=== PATIENT | female | born 1955 | race Caucasian/White ===

== ENCOUNTER → 2024-12-01 | Outpatient (REF) | payer MEDICARE, BC, SELFPAY ==
--- OUTSIDE RECORDS SUMMARY | 2024-12-01 03:32 | XMS RPT_ITS | CCD ---
Author Organization [facility] Care Team Providers Care Electrical Checkout Mechanic Name Role Phone Magdy Wood MD Unavailable Magdy Wood MD Unavailable Marisabel Orellana MA Unavailable Unavailable Maryann GARY, Lesley Diaz Unavailable Unavailab le Unavailable Unavailable Sun Wall Unavailable Unavailable Holli Cline LPN Unavailable Unavailable IRON Attending Unavailable PHYSICIAN, NONE Primary Care Physician Unavailab MARCO Adame Attending Unavailable MARCO VARELA Primary Care Unavailable MARCO VARELA Admitting Unavailable MARCO VARELA Attending Unavailable MARCO VARELA Primary Care Unavailable MARCO VARELA Admitting Unavailable Unavailable Primary Care Provider Unavailabl e PROVIDER, UNKNOWN Admitting Unavailable PROVIDER, UNKNOWN Attending Unavailable PROVIDER, UNKNOWN Admitting Unavailable PROVIDER, UNKNOWN Attending Unavailable PHYSICIAN, NONE Primary Care Unavailable DELVIS GUNDERSON MD Consulting UnavailMEÑO Howard MD Admitting Unavailable MEÑO URBINA MD Attending Unavailable AMERICA SOSA MD Consulting Unavailable BENNY IVAN MD Consulting Unavailab OPAL Lim MD Consulting Unavailable SCANNING, GENERIC PROVIDER Referring Unava ilable ABILIO LEYVA Consulting Unavailable HERNAN AG Admitting Unavailable ZAHRA ELLIS Attending Unavailable UMU TRIVEDI Referring Unavailable TRINH BANEGAS MD Attending Unavailable MAKENZIE DUARTE, TRINH Attending Unavailable NORA HENDERSON MD Consulting Unavaila TRINH Prado MD Attending Unavailable MAKENZIE DUARTE, TRINH Admitting Unavailable PHYSICIAN, NONE Primary Care Unavailable Yamilet Jon Attending Unavailable Allergies Allergy Classification Reported Allergen(s) Allergy Type Date of Onset Reaction(s) Facility (1 source) heparin; Translations: [HEPARIN] Drug Allergy 09-29-2024 [facility] Medications Completed/Discontinued Medications Medication Drug Class(es) Dates Sig (Normalized) Sig (Original) amoxicillin 875 mg oral tablet (6 sources) Penicillin-class Antibacterial Start: 02-26-2022 End: 03-08-2022 take 1 tablet by mouth twice daily Amoxicillin 875 MG Oral Tablet ; 1 (one) Tablet bid for 10 days Quantity: 20 {Tablet} Refills: 0 Ordered: 26-Feb-2022 MD Magdy Wood Start: 26-Feb-2022 End: 08-Mar-2022 Status: Inactive betamethasone 1 mg/ml topical cream (6 sources) Corticosteroid Start: 08-29-2017 End: 02-26-2022 Betamethasone Valerate 0.1 % External Cream ; apply Cream Cream bid prn for 0 days Quantity: 80 {Gram} Refills: 5 Ordered: 26-Feb-2022 COOKIE Wolf Lesley Diaz Start: 29-Aug-2017 End: 26-Feb-2022 Status: Inactive Problems Active Problems Problem Classification Problem Date Documented Da te Episodic/Chronic Acute myocardial infarction (2 sources) ST elevation (STEMI) myocardial infarction involving other coronary artery of anterior wall; Translations: [ST elevation (STEMI) myocardial infarction involving other coronary artery of anterior wall] Onset: 09-10-2024 Chronic Allergic reactions (12 sources) Eczema; Translations: [Dermatitis, unspecified] 09-06-2015 Episodic Anxiety disorders (13 sources) Anxiety disorder; Translations: [Anxiety disorder, unspecified] 02-26-2022 Chronic Cardiac arrest and ventricular fibrillation (4 sources) Cardiac arrest, cause unspecified; Translations: [Cardiac arrest due to underlying cardiac condition] Onset: 09-10-2024 Chronic Chronic kidney disease (4 sources) End stage renal disease; Translations: [Dependence on renal dialysis] Onset: 09-11-2024 Chronic Chronic obstructive pulmonary disease and bronchiectasis (18 sources) Bronchitis; Translations: [Bronchitis, not specified as acute or chronic] 02-26-2022 Episodic Complications of surgical procedures or medical care (3 sources) Postprocedural cardiogenic shock, initial encounter; Translations: [Postoperative shock, cardiogenic] Onset: 09-11-2024 09-11-2024 Episodic Congestive heart failure; nonhypertensive (3 sources) Chronic systolic (congestive) heart failure; Translations: [Acute systolic (congestive) heart failure] Onset: 09-10-2024 Chronic Gastrointestinal hemorrhage (2 sources) Melena; Translations: [Melena] Onset: 09-11-2024 Episodic Hypertension with complications and secondary hypertension (1 source) Hypertensive heart disease with heart failure; Translations: [Hypertensive heart disease with heart failure] Onset: 09-10-2024 Chronic Other circulatory disease (15 sources) Elevated blood-pressure reading without diagnosis of hypertension; Translations: [Elevated blood-pressure reading, without diagnosis of hypertension] 02-26-2022 Episodic Other circulatory disease (1 source) Limb ischemia; Translations: [Other disorder of circulatory system] Onset: 09-10-2024 09-11-2024 Episodic Other circulatory disease (2 sources) Other disorder of circulatory system; Translations: [Other disorder of circulatory system] Onset: 09-11-2024 Episodic Other circulatory disease (2 sources) Other specified symptoms and signs involving the circulatory and respiratory systems; Translations: [Other specified symptoms and signs involving the circulatory and respiratory systems] Onset: 09-11-2024 Episodic Other connective tissue disease (2 sources) Other specified soft tissue disorders; Translations: [Other specified soft tissue disorders] Onset: 09-11-2024 Episodic Other diseases of kidney and ureters (2 sources) Other specified disorders of kidney and ureter; Translations: [Other specified disorders of kidney and ureter] Onset: 09-11-2024 Chronic Other female genital disorders (2 sources) Hypertrophy of uterus; Translations: [Hypertrophy of uterus] Onset: 09-11-2024 Episodic Other nutritional; endocrine; and metabolic disorders (12 sources) Body mass index 30+ - obesity; Translations: [Body mass index (BMI) 35.0-35.9, adult] 02-26-2022 Chronic Other nutritional; endocrine; and metabolic disorders (6 sources) Obesity caused by energy imbalance; Translations: [Morbid (severe) obesity due to excess calories] 04-23-2024 Chronic Other nutritional; endocrine; and metabolic disorders (1 source) Body mass index (BMI) 40.0-44.9, adult; Translations: [Body mass index [BMI] 40.0-44.9, adult] Onset: 09-10-2024 Chronic Other nutritional; endocrine; and metabolic disorders (1 source) Obesity, unspecified; Translations: [Obesity, unspecified] Onset: 09-10-2024 Chronic Other screening for suspected conditions (not mental disorders or infectious disease) (20 sources) Patient encounter status; Translations: [Encounter for screening for diabetes mellitus] Onset: 09-11-2024 02-17-2024 Episodic Other skin disorders (2 sources) Localized swelling, mass and lump, right lower limb; Translations: [Localized swelling, mass and lump, right lower limb] Onset: 09-11-2024 Episodic Pleurisy; pneumothorax; pulmonary collapse (3 sources) Pleural effusion, not elsewhere classified; Translations: [Pleural effusion, not elsewhere classified] Onset: 10-27-2024 Episodic Respiratory failure; insufficiency; arrest (adult) (1 source) Acute respiratory failure with hypoxia; Translations: [Acute respiratory failure with hypoxia] Onset: 09-10-2024 Episodic Shock (5 sources) Cardiogenic shock; Translations: [Cardiogenic shock] Onset: 09-10-2024 09-14-2024 Episodic Unclassified (2 sources) Autogenerated Problem Onset: 09-11-2024 09-11-2024 Past or Other Problems Problem Classification Problem Date Documented Da te Episodic/Chronic Unclassified (6 sources) Cold Symptoms - Symptoms include runny nose, productive cough, wheezing, fever (low grade), general malaise and headache, but do not include sneezing, nasal congestion, ear pain, ear fullness or sore throat. The onset was sudden 3 day(s) ago. The symptoms occur constantly. The patient describes this as moderate in severity and worsening. Current treatment includes non-prescription cold medication. Note for Upper respiratory infection: reviewed by [facility] 02-26-2022 Unclassified (6 sources) Cold Symptoms - Symptoms include sneezing, runny nose, ear fullness, sore throat, hoarseness, productive cough, fever (low grade), chills and headache, but do not include ear pain or general malaise. The onset was sudden 10 day(s) ago. The symptoms occur constantly. The patient describes this as moderate in severity and unchanged. Current treatment includes non-prescription cold medication. Note for Upper respiratory infection: reviewed by [facility] 03-05-2017 Unclassified (6 sources) Rash - The onset of the rash has been acute and has been occurring in a persistent pattern for months. The course has been increasing. The rash is characterized as red. The rash was first seen on the lower extremity (right leg). It spread to the face (right eye lid). There has been associated itching. Note for Rash: reviewed by [facility] 09-06-2015 Unclassified (1 source) [facility] 04-23-2024 Unclassified (3 sources) [facility] - In general the patient feels well with no complaints, has good energy level and is sleeping well (depends on the night). The patient has a balanced diet. The patient exercises none (walking at work) and sleeps 5 (6) hours per night. The patient denies having trouble with bathing, dressing/grooming, toileting, preparing meals and ambulating. The patient denies having trouble with grocery shopping, driving, use of telephone, housework, laundry, preparing/taking medications and finances. The patient performs monthly self breast exam. The patient does not have Healthcare Power of Journeyman Patternmaker or Living Will. Note for [facility]: reviewed by [facility] 04-23-2024 Results Test Name Value Interpretation Reference Range Facility Albumin, Serumon 11-26-2024 Albumin [Mass/Vol] 3.3 g/dL Low 3.4-4.8 [facility] Comment on above: Performed By: #### L 500.2500, L501.1800, L100.0500 #### [facility] [address] [facility] [address] Basic Metabolic Profile (BMP )on 11-26-2024 BUN/CRE 5.7 RATIO Low 10-20 [facility] Comment on above: Performed By: #### L 500.2500, L501.1800, L100.0500 #### [facility] [address] [facility] [address] Calcium [Mass/Vol] 9.5 mg/dL Normal 7.6-11.0 [facility] Comment on above: Performed By: #### L 500.2500, L501.1800, L100.0500 #### [facility] [address] [place], [address] Chloride [Moles/Vol] 97 mmol/L Low 98-108 [facility] Comment on above: Performed By: #### L 500.2500, L501.1800, L100.0500 #### [facility] [address] [place], [address] CO2 [Moles/Vol] 28.4 mmol/L Normal 21.0-32.0 [facility] Comment on above: Performed By: #### L 500.2500, L501.1800, [id number] #### [facility] [address] [place], [address] Creatinine [Mass/Vol] 2.33 mg/dL High 0.70-1.20 [facility] Comment on above: Performed By: #### L 500.2500, L501.1800, L100.0500 #### [facility] [address] [place], [address] GAP 11 Normal 5-15 [facility] Comment on above: Performed By: #### L 500.2500, L501.1800, L100.0500 #### [facility] [address] [place], [address] GFR/1.73 sq M.predicted among non-blacks MDRD (S/P/Bld) [Vol rate/Area] 22 mL/min/{1.73_m2} Low >60 [facility] Comment on above: Result Comment: mL/m in/1.73m2 CKD-EPI Creatinine Equation (2020) Performed By: #### L 500.2500, L501.1800, L100.0500 #### [facility] [address] [place], [address] Glucose [Mass/Vol] 75 mg/dL Normal 70-99 [facility] Comment on above: Performed By: #### L 500.2500, L501.1800, L100.0500 #### [facility] [address] [place], [address] Potassium [Moles/Vol] 4.3 mmol/L Normal 3.3-5.1 [facility] Comment on above: Result Comment: Hemo lysis present, Results??could be affected. ?? Performed By: #### L 500.2500, L501.1800, L100.0500 #### [facility] [address] [place], [address] Sodium [Moles/Vol] 136 mmol/L Normal 133-145 [facility] Comment on above: Performed By: #### L 500.2500, L501.1800, L100.0500 #### [facility] [address] [place], [address] Urea nitrogen [Mass/Vol] 13 mg/dL Normal 4-19 [facility] Comment on above: Performed By: #### L 500.2500, L501.1800, L100.0500 #### [facility] [address] [place], [address] CBC-Complete Blood Cnt No Di ffon 11-26-2024 Erythrocyte distribution width (RBC) [Ratio] 15.0 % High 11.6-14.6 [facility] Comment on above: Performed By: #### L 500.2500, L501.1800, L100.0500 #### [facility] [address] [place], [address] Hematocrit (Bld) [Volume fraction] 41.3 % Normal 37-47 [facility] Comment on above: Performed By: #### L 500.2500, L501.1800, L100.0500 #### [facility] [address] [place], [address] Hemoglobin (Bld) [Mass/Vol] 12.5 g/dL Normal 12.0-15.0 [facility] Comment on above: Performed By: #### L 500.2500, L501.1800, L100.0500 #### [facility] [address] [place], [address] MCH (RBC) [Entitic mass] 28.3 pg Normal 27.0-32.0 [facility] Comment on above: Performed By: #### L 500.2500, L501.1800, L100.0500 #### [facility] [address] [place], [address] MCHC (RBC) [Mass/Vol] 30.3 g/dL Low 32-36 [facility] Comment on above: Performed By: #### L 500.2500, L501.1800, L100.0500 #### [facility] [address] [place], [address] MCV (RBC) [Entitic vol] 93.4 fL Normal 81-99 [facility] Comment on above: Performed By: #### L 500.2500, L501.1800, L100.0500 #### [facility] [address] [place], [address] Platelet mean volume (Bld) [Entitic vol] 10.7 fL Normal 6.2-12.0 [facility] Comment on above: Performed By: #### L 500.2500, L501.1800, L100.0500 #### [facility] [address] [place], [address] Platelets (Bld) [#/Vol] 229 10*3/uL Normal 150-450 [facility] Comment on above: Performed By: #### L 500.2500, L501.1800, L100.0500 #### [facility] [address] [place], [address] RBC (Bld) [#/Vol] 4.42 10*6/uL Normal 4.2-5.4 [facility] Comment on above: Performed By: #### L 500.2500, L501.1800, L100.0500 #### [facility] [address] [place], [address] RDW SD 51.2 fl High 35.1-43.9 [facility] Comment on above: Performed By: #### L 500.2500, L501.1800, L100.0500 #### [facility] [address] [place], [address] WBC (Bld) [#/Vol] 5.3 10*3/uL Normal 4.4-11.0 [facility] Comment on above: Performed By: #### L 500.2500, L501.1800, L100.0500 #### [facility] [address] [place], [address] .Auto Diffon 11-23-2024 Basophil, Absolute 0.1 10 3/mcL Normal 0.0-0.3 [facility] Comment on above: Performed By: #### B FPR, GLUBF, BFCT, PROBF #### [facility] [address] [place] [address] Basophils/100 WBC (Bld) 1.1 % Normal 0.0-2.5 [facility] Comment on above: Performed By: #### B FPR, GLUBF, BFCT, PROBF #### [facility] [address] [place] [address] Eosinophil, Absolute 0.0 10 3/mcL Normal 0.0-0.7 [facility] Comment on above: Performed By: #### B FPR, GLUBF, BFCT, PROBF #### [facility] [address] [place] [address] Eosinophils/100 WBC (Bld) 0.1 % Normal 0.0-6.0 [facility] Comment on above: Performed By: #### B FPR, GLUBF, BFCT, PROBF #### [address] [address] Lymphocyte, Absolute 1.8 10 3/mcL Normal 0.9-4.3 [facility] Comment on above: Performed By: #### B FPR, GLUBF, BFCT, PROBF #### [address] [address] Lymphocytes/100 WBC (Bld) 35.3 % Normal 20.0-40.0 [facility] Comment on above: Performed By: #### B FPR, GLUBF, BFCT, PROBF #### [address] [address] Monocyte, Absolute 0.5 10 3/mcL Normal 0.1-1.4 [facility] Comment on above: Performed By: #### B FPR, GLUBF, BFCT, PROBF #### [address] [address] Monocytes/100 WBC (Bld) 9.7 % Normal 2.0-13.0 [facility] Comment on above: Performed By: #### B FPR, GLUBF, BFCT, PROBF #### [address] [address] Neutrophils/100 WBC (Bld) 53.8 % Normal 50.0-75.0 [facility] Comment on above: Performed By: #### B FPR, GLUBF, BFCT, PROBF #### [place] [id number] .GFRon 11-23-2024 Estimated Glomerular Filtration Rate 14 ml/min/1.73sqm Normal [facility] Comment on above: Result Comment: Stages of Chronic Kidney Disease (CKD) Stage Description eGFR(ml/min/1.73 sq.m.) CKD 1 Normal kidney function or >=90 normal kindney function with possible kidney damage (ex. Proteinuria) CKD 2 Kidney damage with mild loss 60-89 of kidney function CKD 3a Mild to moderate loss of kidney 45-59 function CKD 3b Moderate to severe loss of 30-44 of kindey function CKD 4 Severe loss of kidney function 15-29 CKD 5 Kidney failure <15 Note: (go live 2024) the eGFR calculation was updated to the 2020 CKD-EPI creatinine equation without a race factor to calculate the eGFR results. Performed By: #### B FPR, GLUBF, BFCT, PROBF #### [address] [address] .Morphon 11-23-2024 Anisocytosis Ql (Bld) 1+ Normal [facility] Comment on above: Performed By: #### B FPR, GLUBF, BFCT, PROBF #### [place] [address] Platelet Estimate Normal Normal [facility] Comment on above: Performed By: #### B FPR, GLUBF, BFCT, PROBF #### [place] [address] .NEUABSon 11-23-2024 Neutrophil, Absolute 2.7 10 3/mcL Normal 2.3-8.1 [facility] Comment on above: Performed By: #### B FPR, GLUBF, BFCT, PROBF #### [place] [address] BMPon 11-23-2024 BUN/Creatinine Ratio 3.8 ratio Low 10.0-22.0 [facility] Comment on above: Performed By: #### B FPR, GLUBF, BFCT, PROBF #### [place] [address] Calcium [Mass/Vol] 10.2 mg/dL Normal 8.7-10.4 [facility] Comment on above: Performed By: #### B FPR, GLUBF, BFCT, PROBF #### [place] [address] Chloride [Moles/Vol] 99 mmol/L Normal 98-110 [facility] Comment on above: Performed By: #### B FPR, GLUBF, BFCT, PROBF #### [place] [address] CO2 [Moles/Vol] 27 mmol/L Normal 22-32 [facility] Comment on above: Performed By: #### B FPR, GLUBF, BFCT, PROBF #### [place] [address] Creatinine [Mass/Vol] 3.45 mg/dL High 0.50-1.20 [facility] Comment on above: Result Comment: Test ing performed on [email or web address] analyzer using enzymatic creatinine methodology. Performed By: #### B FPR, GLUBF, BFCT, PROBF #### [address] [address] Electrolyte Balance 8.0 mEq/L Normal 4.0-15.0 [facility] Comment on above: Performed By: #### B FPR, GLUBF, BFCT, PROBF #### [address] [address] Glucose [Mass/Vol] 109 mg/dL Normal 82-115 [facility] Comment on above: Performed By: #### B FPR, GLUBF, BFCT, PROBF #### [place] [id number] Potassium [Moles/Vol] 4.9 mmol/L Normal 3.5-5.0 [facility] Comment on above: Performed By: #### B FPR, GLUBF, BFCT, PROBF #### [place] [id number] Sodium [Moles/Vol] 134 mmol/L Low 136-145 [facility] Comment on above: Performed By: #### B FPR, GLUBF, BFCT, PROBF #### [place] [address] Urea nitrogen [Mass/Vol] 13.0 mg/dL Normal 8.0-22.0 [facility] Comment on above: Performed By: #### B FPR, GLUBF, BFCT, PROBF #### [address] [address] CBCon 11-23-2024 Platelet 212 10 3/mcL Normal 150-450 [facility] Comment on above: Performed By: #### B FPR, GLUBF, BFCT, PROBF #### [address] [address] Platelet mean volume (Bld) [Entitic vol] 8.4 fL Normal 6.6-10.5 [facility] Comment on above: Performed By: #### B FPR, GLUBF, BFCT, PROBF #### [place] [id number] Erythrocyte distribution width (RBC) [Ratio] 16.0 % High 11.5-15.5 [facility] Comment on above: Performed By: #### B FPR, GLUBF, BFCT, PROBF #### [place] [address] Hematocrit (Bld) [Volume fraction] 39.4 % Normal 34.0-46.0 [facility] Comment on above: Performed By: #### B FPR, GLUBF, BFCT, PROBF #### [place] [address] Hgb 12.5 G/dL Normal 12.0-16.0 [facility] Comment on above: Performed By: #### B FPR, GLUBF, BFCT, PROBF #### [place] [address] MCH (RBC) [Entitic mass] 28.3 pg Normal 27.0-33.0 [facility] Comment on above: Performed By: #### B FPR, GLUBF, BFCT, PROBF #### [place] [address] MCHC 31.8 G/dL Low 32.0-36.0 [facility] Comment on above: Performed By: #### B FPR, GLUBF, BFCT, PROBF #### [place] [address] MCV (RBC) [Entitic vol] 89.0 fL Normal 80.0-99.0 [facility] Comment on above: Performed By: #### B FPR, GLUBF, BFCT, PROBF #### [place] [address] RBC 4.42 10 6/mcL Normal 4.10-5.30 [facility] Comment on above: Performed By: #### B FPR, GLUBF, BFCT, PROBF #### [place] [address] WBC 5.1 10 3/mcL Normal 4.5-10.8 [facility] Comment on above: Performed By: #### B FPR, GLUBF, BFCT, PROBF #### [place] [id number] XR CHEST 1 VIEWon 11-22-2024 XR CHEST 1 VIEW ORIGINAL EXAMINATION: ONE XRAY VIEW OF THE CHEST 11/22/2024 4:21 pm COMPARISON: Chest radiograph 11/03/2024 HISTORY: ORDERING SYSTEM PROVIDED HISTORY: Reason for Exam: f/u pleural effusions FINDINGS: There is right jugular approach central venous catheter with tip at proximal right atrium. There is mild pulmonary vascular congestion. The Pulmonary edema on prior study has largely resolved. There are small bibasilar pleural effusions and subsegmental infiltrate/atelectas is, decreased from prior study. There is no pneumothorax. Osseous structures demonstrate degenerative changes. IMPRESSION: There are small bibasilar pleural effusions and subsegmental infiltrate/atelectas is, decreased from prior study. Interpreted by: Yuan Schaefer Preliminary Report By: Yuan Schaefer Electronically signed By Yuan Schaefer Dictated Date: 11/22/2024 4:23:43 PM Prelim Date: 11/22/2024 4:33:13 PM Sign Date: 11/22/2024 4:33:13 PM Ordering Provider: MAX GONZALEZ Normal [facility] .Auto Diffon 11-20-2024 Basophil, Absolute 0.1 10 3/mcL Normal 0.0-0.3 [facility] Comment on above: Performed By: #### B FPR, GLUBF, BFCT, PROBF #### [address] [address] Basophils/100 WBC (Bld) 1.4 % Normal 0.0-2.5 [facility] Comment on above: Performed By: #### B FPR, GLUBF, BFCT, PROBF #### [address] [address] Eosinophil, Absolute 0.0 10 3/mcL Normal 0.0-0.7 [facility] Comment on above: Performed By: #### B FPR, GLUBF, BFCT, PROBF #### [address] [address] Eosinophils/100 WBC (Bld) 0.0 % Normal 0.0-6.0 [facility] Comment on above: Performed By: #### B FPR, GLUBF, BFCT, PROBF #### [address] [address] Lymphocyte, Absolute 1.6 10 3/mcL Normal 0.9-4.3 [facility] Comment on above: Performed By: #### B FPR, GLUBF, BFCT, PROBF #### [address] [address] Lymphocytes/100 WBC (Bld) 34.9 % Normal 20.0-40.0 [facility] Comment on above: Performed By: #### B FPR, GLUBF, BFCT, PROBF #### [address] [address] Monocyte, Absolute 0.7 10 3/mcL Normal 0.1-1.4 [facility] Comment on above: Performed By: #### B FPR, GLUBF, BFCT, PROBF #### [address] [address] Monocytes/100 WBC (Bld) 15.2 % High 2.0-13.0 [facility] Comment on above: Performed By: #### B FPR, GLUBF, BFCT, PROBF #### [address] [address] Neutrophils/100 WBC (Bld) 48.5 % Low 50.0-75.0 [facility] Comment on above: Performed By: #### B FPR, GLUBF, BFCT, PROBF #### [address] [address] .GFRon 11-20-2024 Estimated Glomerular Filtration Rate 17 ml/min/1.73sqm Normal [facility] Comment on above: Result Comment: Stages of Chronic Kidney Disease (CKD) Stage Description eGFR(ml/min/1.73 sq.m.) CKD 1 Normal kidney function or >=90 normal kindney function with possible kidney damage (ex. Proteinuria) CKD 2 Kidney damage with mild loss 60-89 of kidney function CKD 3a Mild to moderate loss of kidney 45-59 function CKD 3b Moderate to severe loss of 30-44 of kindey function CKD 4 Severe loss of kidney function 15-29 CKD 5 Kidney failure <15 Note: (go live 2024) the eGFR calculation was updated to the 2020 CKD-EPI creatinine equation without a race factor to calculate the eGFR results. Performed By: #### B FPR, GLUBF, BFCT, PROBF #### [address] [address] .NEUABSon 11-20-2024 Neutrophil, Absolute 2.3 10 3/mcL Normal 2.3-8.1 [facility] Comment on above: Performed By: #### B FPR, GLUBF, BFCT, PROBF #### [address] [address] BMPon 11-20-2024 BUN/Creatinine Ratio 2.7 ratio Low 10.0-22.0 [facility] Comment on above: Performed By: #### B FPR, GLUBF, BFCT, PROBF #### [address] [address] Calcium [Mass/Vol] 9.2 mg/dL Normal 8.7-10.4 [facility] Comment on above: Performed By: #### B FPR, GLUBF, BFCT, PROBF #### [place] [address] Chloride [Moles/Vol] 99 mmol/L Normal 98-110 [facility] Comment on above: Performed By: #### B FPR, GLUBF, BFCT, PROBF #### [place] [id number] CO2 [Moles/Vol] 27 mmol/L Normal 22-32 [facility] Comment on above: Performed By: #### B FPR, GLUBF, BFCT, PROBF #### [address] [address] Creatinine [Mass/Vol] 2.92 mg/dL High 0.50-1.20 [facility] Comment on above: Result Comment: Test ing performed on [email or web address] analyzer using enzymatic creatinine methodology. Performed By: #### B FPR, GLUBF, BFCT, PROBF #### [address] [address] Electrolyte Balance 10.0 mEq/L Normal 4.0-15.0 [facility] Comment on above: Performed By: #### B FPR, GLUBF, BFCT, PROBF #### [place] [address] Glucose [Mass/Vol] 80 mg/dL Low 82-115 [facility] Comment on above: Performed By: #### B FPR, GLUBF, BFCT, PROBF #### [place] [address] Potassium [Moles/Vol] 4.1 mmol/L Normal 3.5-5.0 [facility] Comment on above: Performed By: #### B FPR, GLUBF, BFCT, PROBF #### [place] [address] Sodium [Moles/Vol] 136 mmol/L Normal 136-145 [facility] Comment on above: Performed By: #### B FPR, GLUBF, BFCT, PROBF #### [place] [address] Urea nitrogen [Mass/Vol] 8.0 mg/dL Normal 8.0-22.0 [facility] Comment on above: Performed By: #### B FPR, GLUBF, BFCT, PROBF #### [place] [address] CBCon 11-20-2024 Erythrocyte distribution width (RBC) [Ratio] 16.3 % High 11.5-15.5 [facility] Comment on above: Performed By: #### B FPR, GLUBF, BFCT, PROBF #### [place] [address] Hematocrit (Bld) [Volume fraction] 33.4 % Low 34.0-46.0 [facility] Comment on above: Performed By: #### B FPR, GLUBF, BFCT, PROBF #### [place] [address] Hgb 10.8 G/dL Low 12.0-16.0 [facility] Comment on above: Performed By: #### B FPR, GLUBF, BFCT, PROBF #### [place] [id number] MCH (RBC) [Entitic mass] 28.7 pg Normal 27.0-33.0 [facility] Comment on above: Performed By: #### B FPR, GLUBF, BFCT, PROBF #### [place] [address] MCHC 32.3 G/dL Normal 32.0-36.0 [facility] Comment on above: Performed By: #### B FPR, GLUBF, BFCT, PROBF #### [place] [address] MCV (RBC) [Entitic vol] 88.8 fL Normal 80.0-99.0 [facility] Comment on above: Performed By: #### B FPR, GLUBF, BFCT, PROBF #### [place] [address] Platelet 287 10 3/mcL Normal 150-450 [facility] Comment on above: Performed By: #### B FPR, GLUBF, BFCT, PROBF #### [place] [address] Platelet mean volume (Bld) [Entitic vol] 7.7 fL Normal 6.6-10.5 [facility] Comment on above: Performed By: #### B FPR, GLUBF, BFCT, PROBF #### [place] [address] RBC 3.76 10 6/mcL Low 4.10-5.30 [facility] Comment on above: Performed By: #### B FPR, GLUBF, BFCT, PROBF #### [place] [address] WBC 4.7 10 3/mcL Normal 4.5-10.8 [facility] Comment on above: Performed By: #### B FPR, GLUBF, BFCT, PROBF #### [place] [address] HBSAGon 11-19-2024 Hep B Surf Ag Non-Reactive Normal Non-Reactive [facility] Comment on above: Performed By: #### H BSAG, HBSAB #### [address] [address] .Auto Diffon 11-18-2024 Basophil, Absolute 0.1 10 3/mcL Normal 0.0-0.3 [facility] Comment on above: Performed By: #### B FPR, GLUBF, BFCT, PROBF #### [address] [address] Basophils/100 WBC (Bld) 1.9 % Normal 0.0-2.5 [facility] Comment on above: Performed By: #### B FPR, GLUBF, BFCT, PROBF #### [address] [address] Eosinophil, Absolute 0.0 10 3/mcL Normal 0.0-0.7 [facility] Comment on above: Performed By: #### B FPR, GLUBF, BFCT, PROBF #### [address] [address] Eosinophils/100 WBC (Bld) 0.1 % Normal 0.0-6.0 [facility] Comment on above: Performed By: #### B FPR, GLUBF, BFCT, PROBF #### [address] [address] Lymphocyte, Absolute 1.7 10 3/mcL Normal 0.9-4.3 [facility] Comment on above: Performed By: #### B FPR, GLUBF, BFCT, PROBF #### [address] [address] Lymphocytes/100 WBC (Bld) 42.3 % High 20.0-40.0 [facility] Comment on above: Performed By: #### B FPR, GLUBF, BFCT, PROBF #### [address] [address] Monocyte, Absolute 0.7 10 3/mcL Normal 0.1-1.4 [facility] Comment on above: Performed By: #### B FPR, GLUBF, BFCT, PROBF #### [address] [address] Monocytes/100 WBC (Bld) 17.0 % High 2.0-13.0 [facility] Comment on above: Performed By: #### B FPR, GLUBF, BFCT, PROBF #### [address] [address] Neutrophils/100 WBC (Bld) 38.7 % Low 50.0-75.0 [facility] Comment on above: Performed By: #### B FPR, GLUBF, BFCT, PROBF #### [address] [address] .GFRon 11-18-2024 Estimated Glomerular Filtration Rate 17 ml/min/1.73sqm Normal [facility] Comment on above: Result Comment: Stages of Chronic Kidney Disease (CKD) Stage Description eGFR(ml/min/1.73 sq.m.) CKD 1 Normal kidney function or >=90 normal kindney function with possible kidney damage (ex. Proteinuria) CKD 2 Kidney damage with mild loss 60-89 of kidney function CKD 3a Mild to moderate loss of kidney 45-59 function CKD 3b Moderate to severe loss of 30-44 of kindey function CKD 4 Severe loss of kidney function 15-29 CKD 5 Kidney failure <15 Note: (go live 2024) the eGFR calculation was updated to the 2020 CKD-EPI creatinine equation without a race factor to calculate the eGFR results. Performed By: #### B FPR, GLUBF, BFCT, PROBF #### [place] [address] .NEUABSon 11-18-2024 Neutrophil, Absolute 1.5 10 3/mcL Low 2.3-8.1 [facility] Comment on above: Performed By: #### B FPR, GLUBF, BFCT, PROBF #### [address] [address] BMPon 11-18-2024 BUN/Creatinine Ratio 4.0 ratio Low 10.0-22.0 [facility] Comment on above: Performed By: #### B FPR, GLUBF, BFCT, PROBF #### [address] [address] Calcium [Mass/Vol] 9.8 mg/dL Normal 8.7-10.4 [facility] Comment on above: Performed By: #### B FPR, GLUBF, BFCT, PROBF #### [address] [address] Chloride [Moles/Vol] 97 mmol/L Low 98-110 [facility] Comment on above: Performed By: #### B FPR, GLUBF, BFCT, PROBF #### [address] [address] CO2 [Moles/Vol] 28 mmol/L Normal 22-32 [facility] Comment on above: Performed By: #### B FPR, GLUBF, BFCT, PROBF #### [address] [address] Creatinine [Mass/Vol] 2.98 mg/dL High 0.50-1.20 [facility] Comment on above: Result Comment: Test ing performed on [email or web address] analyzer using enzymatic creatinine methodology. Performed By: #### B FPR, GLUBF, BFCT, PROBF #### [place] [id number] Electrolyte Balance 12.0 mEq/L Normal 4.0-15.0 [facility] Comment on above: Performed By: #### B FPR, GLUBF, BFCT, PROBF #### [address] [address] Glucose [Mass/Vol] 81 mg/dL Low 82-115 [facility] Comment on above: Performed By: #### B FPR, GLUBF, BFCT, PROBF #### [address] [address] Potassium [Moles/Vol] 5.0 mmol/L Normal 3.5-5.0 [facility] Comment on above: Performed By: #### B FPR, GLUBF, BFCT, PROBF #### [address] [address] Sodium [Moles/Vol] 137 mmol/L Normal 136-145 [facility] Comment on above: Performed By: #### B FPR, GLUBF, BFCT, PROBF #### [address] [address] Urea nitrogen [Mass/Vol] 12.0 mg/dL Normal 8.0-22.0 [facility] Comment on above: Performed By: #### B FPR, GLUBF, BFCT, PROBF #### [place] [address] CBCon 11-18-2024 Erythrocyte distribution width (RBC) [Ratio] 16.2 % High 11.5-15.5 [facility] Comment on above: Performed By: #### B FPR, GLUBF, BFCT, PROBF #### [place] [address] Hematocrit (Bld) [Volume fraction] 35.6 % Normal 34.0-46.0 [facility] Comment on above: Performed By: #### B FPR, GLUBF, BFCT, PROBF #### [place] [address] Hgb 11.3 G/dL Low 12.0-16.0 [facility] Comment on above: Performed By: #### B FPR, GLUBF, BFCT, PROBF #### [place] [address] MCH (RBC) [Entitic mass] 28.5 pg Normal 27.0-33.0 [facility] Comment on above: Performed By: #### B FPR, GLUBF, BFCT, PROBF #### [place] [address] MCHC 31.7 G/dL Low 32.0-36.0 [facility] Comment on above: Performed By: #### B FPR, GLUBF, BFCT, PROBF #### [place] [address] MCV (RBC) [Entitic vol] 89.7 fL Normal 80.0-99.0 [facility] Comment on above: Performed By: #### B FPR, GLUBF, BFCT, PROBF #### [place] [address] Platelet 355 10 3/mcL Normal 150-450 [facility] Comment on above: Performed By: #### B FPR, GLUBF, BFCT, PROBF #### [address] [address] Platelet mean volume (Bld) [Entitic vol] 7.9 fL Normal 6.6-10.5 [facility] Comment on above: Performed By: #### B FPR, GLUBF, BFCT, PROBF #### [address] [address] RBC 3.97 10 6/mcL Low 4.10-5.30 [facility] Comment on above: Performed By: #### B FPR, GLUBF, BFCT, PROBF #### [address] [address] WBC 3.9 10 3/mcL Low 4.5-10.8 [facility] Comment on above: Performed By: #### B FPR, GLUBF, BFCT, PROBF #### [address] [address] .Auto Diffon 11-16-2024 Basophil, Absolute 0.1 10 3/mcL Normal 0.0-0.3 [facility] Comment on above: Performed By: #### B FPR, GLUBF, BFCT, PROBF #### [address] [address] Basophils/100 WBC (Bld) 1.0 % Normal 0.0-2.5 [facility] Comment on above: Performed By: #### B FPR, GLUBF, BFCT, PROBF #### [address] [address] Eosinophil, Absolute 0.0 10 3/mcL Normal 0.0-0.7 [facility] Comment on above: Performed By: #### B FPR, GLUBF, BFCT, PROBF #### [address] [address] Eosinophils/100 WBC (Bld) 0.0 % Normal 0.0-6.0 [facility] Comment on above: Performed By: #### B FPR, GLUBF, BFCT, PROBF #### [address] [address] Lymphocyte, Absolute 1.3 10 3/mcL Normal 0.9-4.3 [facility] Comment on above: Performed By: #### B FPR, GLUBF, BFCT, PROBF #### [address] [address] Lymphocytes/100 WBC (Bld) 15.7 % Low 20.0-40.0 [facility] Comment on above: Performed By: #### B FPR, GLUBF, BFCT, PROBF #### [address] [address] Monocyte, Absolute 0.7 10 3/mcL Normal 0.1-1.4 [facility] Comment on above: Performed By: #### B FPR, GLUBF, BFCT, PROBF #### [address] [address] Monocytes/100 WBC (Bld) 8.6 % Normal 2.0-13.0 [facility] Comment on above: Performed By: #### B FPR, GLUBF, BFCT, PROBF #### [address] [address] Neutrophils/100 WBC (Bld) 74.7 % Normal 50.0-75.0 [facility] Comment on above: Performed By: #### B FPR, GLUBF, BFCT, PROBF #### [address] [address] .GFRon 11-16-2024 Estimated Glomerular Filtration Rate 14 ml/min/1.73sqm Normal [facility] Comment on above: Result Comment: Stages of Chronic Kidney Disease (CKD) Stage Description eGFR(ml/min/1.73 sq.m.) CKD 1 Normal kidney function or >=90 normal kindney function with possible kidney damage (ex. Proteinuria) CKD 2 Kidney damage with mild loss 60-89 of kidney function CKD 3a Mild to moderate loss of kidney 45-59 function CKD 3b Moderate to severe loss of 30-44 of kindey function CKD 4 Severe loss of kidney function 15-29 CKD 5 Kidney failure <15 Note: (go live 2024) the eGFR calculation was updated to the 2020 CKD-EPI creatinine equation without a race factor to calculate the eGFR results. Performed By: #### B FPR, GLUBF, BFCT, PROBF #### [address] [address] .NEUABSon 11-16-2024 Neutrophil, Absolute 6.2 10 3/mcL Normal 2.3-8.1 [facility] Comment on above: Performed By: #### B FPR, GLUBF, BFCT, PROBF #### [address] [address] BMPon 11-16-2024 BUN/Creatinine Ratio 2.7 ratio Low 10.0-22.0 [facility] Comment on above: Performed By: #### B FPR, GLUBF, BFCT, PROBF #### [address] [address] Calcium [Mass/Vol] 10.0 mg/dL Normal 8.7-10.4 [facility] Comment on above: Performed By: #### B FPR, GLUBF, BFCT, PROBF #### [address] [address] Chloride [Moles/Vol] 96 mmol/L Low 98-110 [facility] Comment on above: Performed By: #### B FPR, GLUBF, BFCT, PROBF #### [address] [address] CO2 [Moles/Vol] 26 mmol/L Normal 22-32 [facility] Comment on above: Performed By: #### B FPR, GLUBF, BFCT, PROBF #### [address] [address] Creatinine [Mass/Vol] 3.34 mg/dL High 0.50-1.20 [facility] Comment on above: Result Comment: Test ing performed on [email or web address] analyzer using enzymatic creatinine methodology. Performed By: #### B FPR, GLUBF, BFCT, PROBF #### [address] [address] Electrolyte Balance 9.0 mEq/L Normal 4.0-15.0 [facility] Comment on above: Performed By: #### B FPR, GLUBF, BFCT, PROBF #### [address] [address] Glucose [Mass/Vol] 94 mg/dL Normal 82-115 [facility] Comment on above: Performed By: #### B FPR, GLUBF, BFCT, PROBF #### [place] [address] Potassium [Moles/Vol] 4.2 mmol/L Normal 3.5-5.0 [facility] Comment on above: Performed By: #### B FPR, GLUBF, BFCT, PROBF #### [place] [address] Sodium [Moles/Vol] 131 mmol/L Low 136-145 [facility] Comment on above: Performed By: #### B FPR, GLUBF, BFCT, PROBF #### [place] [address] Urea nitrogen [Mass/Vol] 9.0 mg/dL Normal 8.0-22.0 [facility] Comment on above: Performed By: #### B FPR, GLUBF, BFCT, PROBF #### [place] [address] CBCon 11-16-2024 Erythrocyte distribution width (RBC) [Ratio] 16.3 % High 11.5-15.5 [facility] Comment on above: Performed By: #### B FPR, GLUBF, BFCT, PROBF #### [place] [address] Hematocrit (Bld) [Volume fraction] 33.6 % Low 34.0-46.0 [facility] Comment on above: Performed By: #### B FPR, GLUBF, BFCT, PROBF #### [place] [address] Hgb 10.7 G/dL Low 12.0-16.0 [facility] Comment on above: Performed By: #### B FPR, GLUBF, BFCT, PROBF #### [place] [id number] MCH (RBC) [Entitic mass] 28.5 pg Normal 27.0-33.0 [facility] Comment on above: Performed By: #### B FPR, GLUBF, BFCT, PROBF #### [address] [address] MCHC 32.0 G/dL Normal 32.0-36.0 [facility] Comment on above: Performed By: #### B FPR, GLUBF, BFCT, PROBF #### [address] [address] MCV (RBC) [Entitic vol] 89.0 fL Normal 80.0-99.0 [facility] Comment on above: Performed By: #### B FPR, GLUBF, BFCT, PROBF #### [place] [address] Platelet 424 10 3/mcL Normal 150-450 [facility] Comment on above: Performed By: #### B FPR, GLUBF, BFCT, PROBF #### [place] [address] Platelet mean volume (Bld) [Entitic vol] 7.4 fL Normal 6.6-10.5 [facility] Comment on above: Performed By: #### B FPR, GLUBF, BFCT, PROBF #### [place] [address] RBC 3.77 10 6/mcL Low 4.10-5.30 [facility] Comment on above: Performed By: #### B FPR, GLUBF, BFCT, PROBF #### [place] [address] WBC 8.4 10 3/mcL Normal 4.5-10.8 [facility] Comment on above: Performed By: #### B FPR, GLUBF, BFCT, PROBF #### [address] [address] .Auto Diffon 11-13-2024 Basophil, Absolute 0.2 10 3/mcL Normal 0.0-0.3 [facility] Comment on above: Performed By: #### B FPR, GLUBF, BFCT, PROBF #### [place] [id number] Basophils/100 WBC (Bld) 3.0 % High 0.0-2.5 [facility] Comment on above: Performed By: #### B FPR, GLUBF, BFCT, PROBF #### [address] [address] Eosinophil, Absolute 0.0 10 3/mcL Normal 0.0-0.7 [facility] Comment on above: Performed By: #### B FPR, GLUBF, BFCT, PROBF #### [address] [address] Eosinophils/100 WBC (Bld) 0.0 % Normal 0.0-6.0 [facility] Comment on above: Performed By: #### B FPR, GLUBF, BFCT, PROBF #### [address] [address] Lymphocyte, Absolute 1.7 10 3/mcL Normal 0.9-4.3 [facility] Comment on above: Performed By: #### B FPR, GLUBF, BFCT, PROBF #### [address] [address] Lymphocytes/100 WBC (Bld) 27.4 % Normal 20.0-40.0 [facility] Comment on above: Performed By: #### B FPR, GLUBF, BFCT, PROBF #### [address] [address] Monocyte, Absolute 0.7 10 3/mcL Normal 0.1-1.4 [facility] Comment on above: Performed By: #### B FPR, GLUBF, BFCT, PROBF #### [address] [address] Monocytes/100 WBC (Bld) 11.7 % Normal 2.0-13.0 [facility] Comment on above: Performed By: #### B FPR, GLUBF, BFCT, PROBF #### [address] [address] Neutrophils/100 WBC (Bld) 57.9 % Normal 50.0-75.0 [facility] Comment on above: Performed By: #### B FPR, GLUBF, BFCT, PROBF #### [address] [address] .GFRon 11-13-2024 Estimated Glomerular Filtration Rate 18 ml/min/1.73sqm Normal [facility] Comment on above: Result Comment: Stages of Chronic Kidney Disease (CKD) Stage Description eGFR(ml/min/1.73 sq.m.) CKD 1 Normal kidney function or >=90 normal kindney function with possible kidney damage (ex. Proteinuria) CKD 2 Kidney damage with mild loss 60-89 of kidney function CKD 3a Mild to moderate loss of kidney 45-59 function CKD 3b Moderate to severe loss of 30-44 of kindey function CKD 4 Severe loss of kidney function 15-29 CKD 5 Kidney failure <15 Note: (go live 2024) the eGFR calculation was updated to the 2020 CKD-EPI creatinine equation without a race factor to calculate the eGFR results. Performed By: #### B FPR, GLUBF, BFCT, PROBF #### [address] [address] .NEUABSon 11-13-2024 Neutrophil, Absolute 3.5 10 3/mcL Normal 2.3-8.1 [facility] Comment on above: Performed By: #### B FPR, GLUBF, BFCT, PROBF #### [address] [address] BMPon 11-13-2024 BUN/Creatinine Ratio 3.5 ratio Low 10.0-22.0 [facility] Comment on above: Performed By: #### B FPR, GLUBF, BFCT, PROBF #### [address] [address] Calcium [Mass/Vol] 9.9 mg/dL Normal 8.7-10.4 [facility] Comment on above: Performed By: #### B FPR, GLUBF, BFCT, PROBF #### [address] [address] Chloride [Moles/Vol] 98 mmol/L Normal 98-110 [facility] Comment on above: Performed By: #### B FPR, GLUBF, BFCT, PROBF #### [address] [address] CO2 [Moles/Vol] 27 mmol/L Normal 22-32 [facility] Comment on above: Performed By: #### B FPR, GLUBF, BFCT, PROBF #### [place] [address] Creatinine [Mass/Vol] 2.83 mg/dL High 0.50-1.20 [facility] Comment on above: Result Comment: Test ing performed on [email or web address] analyzer using enzymatic creatinine methodology. Performed By: #### B FPR, GLUBF, BFCT, PROBF #### [place] [address] Electrolyte Balance 9.0 mEq/L Normal 4.0-15.0 [facility] Comment on above: Performed By: #### B FPR, GLUBF, BFCT, PROBF #### [place] [address] Glucose [Mass/Vol] 83 mg/dL Normal 82-115 [facility] Comment on above: Performed By: #### B FPR, GLUBF, BFCT, PROBF #### [place] [address] Potassium [Moles/Vol] 4.0 mmol/L Normal 3.5-5.0 [facility] Comment on above: Performed By: #### B FPR, GLUBF, BFCT, PROBF #### [place] [address] Sodium [Moles/Vol] 134 mmol/L Low 136-145 [facility] Comment on above: Performed By: #### B FPR, GLUBF, BFCT, PROBF #### [place] [address] Urea nitrogen [Mass/Vol] 10.0 mg/dL Normal 8.0-22.0 [facility] Comment on above: Performed By: #### B FPR, GLUBF, BFCT, PROBF #### [place] [address] CBCon 11-13-2024 Erythrocyte distribution width (RBC) [Ratio] 16.3 % High 11.5-15.5 [facility] Comment on above: Performed By: #### B FPR, GLUBF, BFCT, PROBF #### [place] [address] Hematocrit (Bld) [Volume fraction] 31.5 % Low 34.0-46.0 [facility] Comment on above: Performed By: #### B FPR, GLUBF, BFCT, PROBF #### [place] [address] Hgb 10.1 G/dL Low 12.0-16.0 [facility] Comment on above: Performed By: #### B FPR, GLUBF, BFCT, PROBF #### [place] [address] MCH (RBC) [Entitic mass] 28.8 pg Normal 27.0-33.0 [facility] Comment on above: Performed By: #### B FPR, GLUBF, BFCT, PROBF #### [place] [address] MCHC 32.1 G/dL Normal 32.0-36.0 [facility] Comment on above: Performed By: #### B FPR, GLUBF, BFCT, PROBF #### [place] [address] MCV (RBC) [Entitic vol] 89.8 fL Normal 80.0-99.0 [facility] Comment on above: Performed By: #### B FPR, GLUBF, BFCT, PROBF #### [place] [address] Platelet 429 10 3/mcL Normal 150-450 [facility] Comment on above: Performed By: #### B FPR, GLUBF, BFCT, PROBF #### [place] [address] Platelet mean volume (Bld) [Entitic vol] 7.3 fL Normal 6.6-10.5 [facility] Comment on above: Performed By: #### B FPR, GLUBF, BFCT, PROBF #### [place] [address] RBC 3.51 10 6/mcL Low 4.10-5.30 [facility] Comment on above: Performed By: #### B FPR, GLUBF, BFCT, PROBF #### [address] [address] WBC 6.1 10 3/mcL Normal 4.5-10.8 [facility] Comment on above: Performed By: #### B FPR, GLUBF, BFCT, PROBF #### [address] [address] .Auto Diffon 11-11-2024 Basophil, Absolute 0.0 10 3/mcL Normal 0.0-0.3 [facility] Comment on above: Performed By: #### R BCP #### [address] [address] Basophils/100 WBC (Bld) 0.2 % Normal 0.0-2.5 [facility] Comment on above: Performed By: #### R BCP #### [address] [address] Eosinophil, Absolute 0.0 10 3/mcL Normal 0.0-0.7 [facility] Comment on above: Performed By: #### R BCP #### [address] [address] Eosinophils/100 WBC (Bld) 0.0 % Normal 0.0-6.0 [facility] Comment on above: Performed By: #### R BCP #### [address] [address] Lymphocyte, Absolute 1.6 10 3/mcL Normal 0.9-4.3 [facility] Comment on above: Performed By: #### R BCP #### [address] [address] Lymphocytes/100 WBC (Bld) 24.3 % Normal 20.0-40.0 [facility] Comment on above: Performed By: #### R BCP #### [address] [address] Monocyte, Absolute 0.8 10 3/mcL Normal 0.1-1.4 [facility] Comment on above: Performed By: #### R BCP #### [address] [address] Monocytes/100 WBC (Bld) 12.2 % Normal 2.0-13.0 [facility] Comment on above: Performed By: #### R BCP #### [address] [address] Neutrophils/100 WBC (Bld) 63.3 % Normal 50.0-75.0 [facility] Comment on above: Performed By: #### R BCP #### [address] [address] .GFRon 11-11-2024 Estimated Glomerular Filtration Rate 18 ml/min/1.73sqm Normal [facility] Comment on above: Result Comment: Stages of Chronic Kidney Disease (CKD) Stage Description eGFR(ml/min/1.73 sq.m.) CKD 1 Normal kidney function or >=90 normal kindney function with possible kidney damage (ex. Proteinuria) CKD 2 Kidney damage with mild loss 60-89 of kidney function CKD 3a Mild to moderate loss of kidney 45-59 function CKD 3b Moderate to severe loss of 30-44 of kindey function CKD 4 Severe loss of kidney function 15-29 CKD 5 Kidney failure <15 Note: (go live 2024) the eGFR calculation was updated to the 2020 CKD-EPI creatinine equation without a race factor to calculate the eGFR results. Performed By: #### R BCP #### [address] [address] .NEUABSon 11-11-2024 Neutrophil, Absolute 4.2 10 3/mcL Normal 2.3-8.1 [facility] Comment on above: Performed By: #### R BCP #### [address] [address] BMPon 11-11-2024 BUN/Creatinine Ratio 4.7 ratio Low 10.0-22.0 [facility] Comment on above: Performed By: #### R BCP #### [address] [address] Calcium [Mass/Vol] 9.2 mg/dL Normal 8.7-10.4 [facility] Comment on above: Performed By: #### R BCP #### [address] [address] Chloride [Moles/Vol] 101 mmol/L Normal 98-110 [facility] Comment on above: Performed By: #### R BCP #### [address] [address] CO2 [Moles/Vol] 27 mmol/L Normal 22-32 [facility] Comment on above: Performed By: #### R BCP #### [place] [id number] Creatinine [Mass/Vol] 2.76 mg/dL High 0.50-1.20 [facility] Comment on above: Result Comment: Test ing performed on [email or web address] analyzer using enzymatic creatinine methodology. Performed By: #### R BCP #### [place] [id number] Electrolyte Balance 9.0 mEq/L Normal 4.0-15.0 [facility] Comment on above: Performed By: #### R BCP #### [place] [id number] Glucose [Mass/Vol] 91 mg/dL Normal 82-115 [facility] Comment on above: Performed By: #### R BCP #### [place] [id number] Potassium [Moles/Vol] 4.1 mmol/L Normal 3.5-5.0 [facility] Comment on above: Performed By: #### R BCP #### [place] [address] Sodium [Moles/Vol] 137 mmol/L Normal 136-145 [facility] Comment on above: Performed By: #### R BCP #### [place] [id number] Urea nitrogen [Mass/Vol] 13.0 mg/dL Normal 8.0-22.0 [facility] Comment on above: Performed By: #### R BCP #### [address] [address] CBCon 11-11-2024 Erythrocyte distribution width (RBC) [Ratio] 16.4 % High 11.5-15.5 [facility] Comment on above: Performed By: #### R BCP #### [place] [id number] Hematocrit (Bld) [Volume fraction] 29.6 % Low 34.0-46.0 [facility] Comment on above: Performed By: #### R BCP #### [place] [id number] Hgb 9.5 G/dL Low 12.0-16.0 [facility] Comment on above: Performed By: #### R BCP #### [place] [address] MCH (RBC) [Entitic mass] 28.8 pg Normal 27.0-33.0 [facility] Comment on above: Performed By: #### R BCP #### [place] [address] MCHC 32.0 G/dL Normal 32.0-36.0 [facility] Comment on above: Performed By: #### R BCP #### [place] [address] MCV (RBC) [Entitic vol] 90.1 fL Normal 80.0-99.0 [facility] Comment on above: Performed By: #### R BCP #### [place] [address] Platelet 430 10 3/mcL Normal 150-450 [facility] Comment on above: Performed By: #### R BCP #### [place] [address] Platelet mean volume (Bld) [Entitic vol] 7.1 fL Normal 6.6-10.5 [facility] Comment on above: Performed By: #### R BCP #### [place] [id number] RBC 3.28 10 6/mcL Low 4.10-5.30 [facility] Comment on above: Performed By: #### R BCP #### [place] [id number] WBC 6.7 10 3/mcL Normal 4.5-10.8 [facility] Comment on above: Performed By: #### R BCP #### [address] [address] .Auto Diffon 11-09-2024 Basophil, Absolute 0.1 10 3/mcL Normal 0.0-0.3 [facility] Comment on above: Performed By: #### H BSAG, HBSAB #### [address] [address] Basophils/100 WBC (Bld) 1.4 % Normal 0.0-2.5 [facility] Comment on above: Performed By: #### H BSAG, HBSAB #### [address] [address] Eosinophil, Absolute 0.0 10 3/mcL Normal 0.0-0.7 [facility] Comment on above: Performed By: #### H BSAG, HBSAB #### [address] [address] Eosinophils/100 WBC (Bld) 0.0 % Normal 0.0-6.0 [facility] Comment on above: Performed By: #### H BSAG, HBSAB #### [address] [address] Lymphocyte, Absolute 2.2 10 3/mcL Normal 0.9-4.3 [facility] Comment on above: Performed By: #### H BSAG, HBSAB #### [address] [address] Lymphocytes/100 WBC (Bld) 26.5 % Normal 20.0-40.0 [facility] Comment on above: Performed By: #### H BSAG, HBSAB #### [address] [address] Monocyte, Absolute 0.7 10 3/mcL Normal 0.1-1.4 [facility] Comment on above: Performed By: #### H BSAG, HBSAB #### [address] [address] Monocytes/100 WBC (Bld) 8.8 % Normal 2.0-13.0 [facility] Comment on above: Performed By: #### H BSAG, HBSAB #### [address] [address] Neutrophils/100 WBC (Bld) 63.3 % Normal 50.0-75.0 [facility] Comment on above: Performed By: #### H LOIS, HBSAB #### [address] [address] .GFRon 11-09-2024 Estimated Glomerular Filtration Rate 14 ml/min/1.73sqm Normal [facility] Comment on above: Result Comment: Stages of Chronic Kidney Disease (CKD) Stage Description eGFR(ml/min/1.73 sq.m.) CKD 1 Normal kidney function or >=90 normal kindney function with possible kidney damage (ex. Proteinuria) CKD 2 Kidney damage with mild loss 60-89 of kidney function CKD 3a Mild to moderate loss of kidney 45-59 function CKD 3b Moderate to severe loss of 30-44 of kindey function CKD 4 Severe loss of kidney function 15-29 CKD 5 Kidney failure <15 Note: (go live 2024) the eGFR calculation was updated to the 2020 CKD-EPI creatinine equation without a race factor to calculate the eGFR results. Performed By: #### H BSAG, HBSAB #### [address] [address] .NEUABSon 11-09-2024 Neutrophil, Absolute 5.4 10 3/mcL Normal 2.3-8.1 [facility] Comment on above: Performed By: #### H BSAG, HBSAB #### [address] [address] BMPon 11-09-2024 BUN/Creatinine Ratio 7.8 ratio Low 10.0-22.0 [facility] Comment on above: Performed By: #### H BSAG, HBSAB #### [address] [address] Calcium [Mass/Vol] 9.6 mg/dL Normal 8.7-10.4 [facility] Comment on above: Performed By: #### H BSAG, HBSAB #### [address] [address] Chloride [Moles/Vol] 96 mmol/L Low 98-110 [facility] Comment on above: Performed By: #### H BSAG, HBSAB #### [address] [address] CO2 [Moles/Vol] 25 mmol/L Normal 22-32 [facility] Comment on above: Performed By: #### H BSAG, HBSAB #### [address] [address] Creatinine [Mass/Vol] 3.35 mg/dL High 0.50-1.20 [facility] Comment on above: Result Comment: Test ing performed on [email or web address] analyzer using enzymatic creatinine methodology. Performed By: #### H BSAG, HBSAB #### [address] [address] Electrolyte Balance 14.0 mEq/L Normal 4.0-15.0 [facility] Comment on above: Performed By: #### H BSAG, HBSAB #### [address] [address] Glucose [Mass/Vol] 83 mg/dL Normal 82-115 [facility] Comment on above: Performed By: #### H BSAG, HBSAB #### [address] [address] Potassium [Moles/Vol] 3.4 mmol/L Low 3.5-5.0 [facility] Comment on above: Performed By: #### H BSAG, HBSAB #### [address] [address] Sodium [Moles/Vol] 135 mmol/L Low 136-145 [facility] Comment on above: Performed By: #### H BSAG, HBSAB #### [address] [address] Urea nitrogen [Mass/Vol] 26.0 mg/dL High 8.0-22.0 [facility] Comment on above: Performed By: #### H BSAG, HBSAB #### [address] [address] CBCon 11-09-2024 Erythrocyte distribution width (RBC) [Ratio] 16.8 % High 11.5-15.5 [facility] Comment on above: Performed By: #### A CHUCK SANON #### [address] [address] Hematocrit (Bld) [Volume fraction] 32.8 % Low 34.0-46.0 [facility] Comment on above: Performed By: #### A CHUCK SANON #### [address] [address] Hgb 10.4 G/dL Low 12.0-16.0 [facility] Comment on above: Performed By: #### A CHUCK SANON #### [place] [id number] MCH (RBC) [Entitic mass] 28.8 pg Normal 27.0-33.0 [facility] Comment on above: Performed By: #### A CHUCK SANON #### [place] [address] MCHC 31.9 G/dL Low 32.0-36.0 [facility] Comment on above: Performed By: #### A CHUCK SANON #### [place] [address] MCV (RBC) [Entitic vol] 90.3 fL Normal 80.0-99.0 [facility] Comment on above: Performed By: #### A CHUCK SANON #### [place] [address] Platelet 408 10 3/mcL Normal 150-450 [facility] Comment on above: Performed By: #### A CHUCK SANON #### [place] [id number] Platelet mean volume (Bld) [Entitic vol] 7.5 fL Normal 6.6-10.5 [facility] Comment on above: Performed By: #### CHUCK YOUNGBLOOD #### [place] [id number] RBC 3.63 10 6/mcL Low 4.10-5.30 [facility] Comment on above: Performed By: #### CHUCK YOUNGBLOOD #### [place] [id number] WBC 8.5 10 3/mcL Normal 4.5-10.8 [facility] Comment on above: Performed By: #### A CHUCK SANON #### [address] [address] HFPon 11-09-2024 Bili Indirect 0.3 mg/dL Normal 0.1-10.0 [facility] Comment on above: Performed By: #### H BSAG, HBSAB #### [place] [address] Albumin Level 2.8 G/dL Low 3.2-4.8 [facility] Comment on above: Performed By: #### H BSAG, HBSAB #### [place] [id number] Albumin/Globulin [Mass ratio] 0.8 {ratio} Low 0.9-1.6 [facility] Comment on above: Performed By: #### H BSAG, HBSAB #### [place] [id number] ALP [Catalytic activity/Vol] 147 U/L High 38-126 [facility] Comment on above: Performed By: #### H BSAG, HBSAB #### [place] [id number] ALT [Catalytic activity/Vol] 19 U/L Normal 10-49 [facility] Comment on above: Performed By: #### H BSAG, HBSAB #### [place] [id number] AST [Catalytic activity/Vol] 24 U/L Normal 8-34 [facility] Comment on above: Performed By: #### H BSAG, HBSAB #### [place] [id number] Bili Direct 0.3 mg/dL Normal 0.0-0.4 [facility] Comment on above: Result Comment: Use of this assay is not recommended for patients undergoing treatment with eltrombopag due to the potential for falsely elevated results. Performed By: #### H BSAG, HBSAB #### [place] [address] Bili Total 0.60 mg/dL Normal 0.20-1.20 [facility] Comment on above: Result Comment: Use of this assay is not recommended for patients undergoing treatment with eltrombopag due to the potential for falsely elevated results. Performed By: #### H BSAG, HBSAB #### [address] [address] Globulin 3.4 G/dL Normal 2.5-4.2 [facility] Comment on above: Performed By: #### H BSAMaxx, HBSAB #### [place] [address] Total Protein 6.2 G/dL Normal 5.7-8.2 [facility] Comment on above: Performed By: #### H BSAMaxx, HBSAB #### [place] [address] .GFRon 11-06-2024 Estimated Glomerular Filtration Rate 18 ml/min/1.73sqm Normal [facility] Comment on above: Result Comment: Stages of Chronic Kidney Disease (CKD) Stage Description eGFR(ml/min/1.73 sq.m.) CKD 1 Normal kidney function or >=90 normal kindney function with possible kidney damage (ex. Proteinuria) CKD 2 Kidney damage with mild loss 60-89 of kidney function CKD 3a Mild to moderate loss of kidney 45-59 function CKD 3b Moderate to severe loss of 30-44 of kindey function CKD 4 Severe loss of kidney function 15-29 CKD 5 Kidney failure <15 Note: (go live 2024) the eGFR calculation was updated to the 2020 CKD-EPI creatinine equation without a race factor to calculate the eGFR results. Performed By: #### T VINITA #### [address] [address] .Manual Diffon 11-06-2024 Bands 1.0 % Normal 0.0-5.0 [facility] Comment on above: Performed By: #### T VINITA #### [place] [address] Basophil %, Manual 1.0 % Normal 0.0-2.5 [facility] Comment on above: Performed By: #### T VINITA #### [address] [address] Basophil, Abs Manual 0.0 10 3/mcL Normal 0.0-0.3 [facility] Comment on above: Performed By: #### T ROPARTURO #### [address] [address] Eosinophil %, Manual 0.0 % Normal 0.0-6.0 [facility] Comment on above: Performed By: #### T ROPARTURO #### [address] [address] Eosinophil, Abs Manual 0.0 10 3/mcL Normal 0.0-0.7 [facility] Comment on above: Performed By: #### T ROPARTURO #### [place] [id number] Lymphocyte %, Manual 15.0 % Low 20.0-40.0 [facility] Comment on above: Performed By: #### T ROPARTURO #### [place] [id number] Lymphocyte, Abs Manual 1.1 10 3/mcL Normal 0.9-4.3 [facility] Comment on above: Performed By: #### T ROPARTURO #### [place] [id number] Metamyelocyte 1.0 % Normal [facility] Comment on above: Performed By: #### T ROPARTURO #### [address] [address] Monocyte %, Manual 8.0 % Normal 2.0-13.0 [facility] Comment on above: Performed By: #### T ROPHS #### [address] [address] Monocyte, Abs Manual 0.6 10 3/mcL Normal 0.1-1.4 [facility] Comment on above: Performed By: #### T ROPHS #### [address] [address] Neutrophil %, Manual 74.0 % Normal 50.0-75.0 [facility] Comment on above: Performed By: #### T ROPARTURO #### [address] [address] Neutrophil, Abs Manual 5.6 10 3/mcL Normal 2.3-8.1 [facility] Comment on above: Performed By: #### T VINITA #### [place] [address] Nucleated RBC 0.0 /100 WBC Normal [facility] Comment on above: Performed By: #### T VINITA #### [place] [address] .Morphon 11-06-2024 Anisocytosis Ql (Bld) 1+ Normal [facility] Comment on above: Performed By: #### T VINITA #### [place] [address] Platelet Estimate Normal Normal [facility] Comment on above: Performed By: #### T VINITA #### [place] [address] Polychrom 1+ Normal [facility] Comment on above: Performed By: #### T VNIITA #### [address] 11-06-2024 BUN/Creatinine Ratio 11.6 ratio Normal 10.0-22.0 [facility] Comment on above: Performed By: #### T VINITA #### [place] [address] Calcium [Mass/Vol] 10.2 mg/dL Normal 8.7-10.4 [facility] Comment on above: Performed By: #### T VINITA #### [place] [address] Chloride [Moles/Vol] 97 mmol/L Low 98-110 [facility] Comment on above: Performed By: #### T VINITA #### [place] [id number] CO2 [Moles/Vol] 29 mmol/L Normal 22-32 [facility] Comment on above: Performed By: #### T VINITA #### [place] [address] Creatinine [Mass/Vol] 2.76 mg/dL High 0.50-1.20 [facility] Comment on above: Result Comment: Test ing performed on [email or web address] analyzer using enzymatic creatinine methodology. Performed By: #### T VINITA #### [place] [id number] Electrolyte Balance 10.0 mEq/L Normal 4.0-15.0 [facility] Comment on above: Performed By: #### T VINITA #### [place] [id number] Glucose [Mass/Vol] 115 mg/dL Normal 82-115 [facility] Comment on above: Performed By: #### T VINITA #### [place] [id number] Potassium [Moles/Vol] 3.8 mmol/L Normal 3.5-5.0 [facility] Comment on above: Performed By: #### T VINITA #### [place] [id number] Sodium [Moles/Vol] 136 mmol/L Normal 136-145 [facility] Comment on above: Performed By: #### T VINITA #### [place] [id number] Urea nitrogen [Mass/Vol] 32.0 mg/dL High 8.0-22.0 [facility] Comment on above: Performed By: #### T VINITA #### [address] [address] CBCon 11-06-2024 Erythrocyte distribution width (RBC) [Ratio] 16.7 % High 11.5-15.5 [facility] Comment on above: Performed By: #### T VINITA #### [address] [address] Hematocrit (Bld) [Volume fraction] 27.5 % Low 34.0-46.0 [facility] Comment on above: Performed By: #### T VINITA #### [address] [address] Hgb 8.8 G/dL Low 12.0-16.0 [facility] Comment on above: Performed By: #### T VINITA #### [place] [address] MCH (RBC) [Entitic mass] 29.1 pg Normal 27.0-33.0 [facility] Comment on above: Performed By: #### T VINITA #### [place] [address] MCHC 31.8 G/dL Low 32.0-36.0 [facility] Comment on above: Performed By: #### T VINITA #### [place] [address] MCV (RBC) [Entitic vol] 91.5 fL Normal 80.0-99.0 [facility] Comment on above: Performed By: #### T VINITA #### [place] [address] Platelet 321 10 3/mcL Normal 150-450 [facility] Comment on above: Performed By: #### T VINITA #### [place] [address] Platelet mean volume (Bld) [Entitic vol] 8.0 fL Normal 6.6-10.5 [facility] Comment on above: Performed By: #### T VINITA #### [place] [address] RBC 3.01 10 6/mcL Low 4.10-5.30 [facility] Comment on above: Performed By: #### T VINITA #### [place] [address] WBC 7.4 10 3/mcL Normal 4.5-10.8 [facility] Comment on above: Performed By: #### T VINITA #### [place] [address] .Auto Diffon 11-04-2024 Basophil, Absolute 0.1 10 3/mcL Normal 0.0-0.3 [facility] Comment on above: Performed By: #### B FPR, GLUBF, BFCT, PROBF #### [place] [address] Basophils/100 WBC (Bld) 1.0 % Normal 0.0-2.5 [facility] Comment on above: Performed By: #### B FPR, GLUBF, BFCT, PROBF #### [address] [address] Eosinophil, Absolute 0.0 10 3/mcL Normal 0.0-0.7 [facility] Comment on above: Performed By: #### B FPR, GLUBF, BFCT, PROBF #### [address] [address] Eosinophils/100 WBC (Bld) 0.0 % Normal 0.0-6.0 [facility] Comment on above: Performed By: #### B FPR, GLUBF, BFCT, PROBF #### [address] [address] Lymphocyte, Absolute 0.9 10 3/mcL Normal 0.9-4.3 [facility] Comment on above: Performed By: #### B FPR, GLUBF, BFCT, PROBF #### [address] [address] Lymphocytes/100 WBC (Bld) 9.4 % Low 20.0-40.0 [facility] Comment on above: Performed By: #### B FPR, GLUBF, BFCT, PROBF #### [address] [address] Monocyte, Absolute 0.7 10 3/mcL Normal 0.1-1.4 [facility] Comment on above: Performed By: #### B FPR, GLUBF, BFCT, PROBF #### [address] [address] Monocytes/100 WBC (Bld) 7.6 % Normal 2.0-13.0 [facility] Comment on above: Performed By: #### B FPR, GLUBF, BFCT, PROBF #### [address] [address] Neutrophils/100 WBC (Bld) 82.0 % High 50.0-75.0 [facility] Comment on above: Performed By: #### B FPR, GLUBF, BFCT, PROBF #### [address] [address] .GFRon 11-04-2024 Estimated Glomerular Filtration Rate 19 ml/min/1.73sqm Normal [facility] Comment on above: Result Comment: Stages of Chronic Kidney Disease (CKD) Stage Description eGFR(ml/min/1.73 sq.m.) CKD 1 Normal kidney function or >=90 normal kindney function with possible kidney damage (ex. Proteinuria) CKD 2 Kidney damage with mild loss 60-89 of kidney function CKD 3a Mild to moderate loss of kidney 45-59 function CKD 3b Moderate to severe loss of 30-44 of kindey function CKD 4 Severe loss of kidney function 15-29 CKD 5 Kidney failure <15 Note: (go live 2024) the eGFR calculation was updated to the 2020 CKD-EPI creatinine equation without a race factor to calculate the eGFR results. Performed By: #### B FPR, GLUBF, BFCT, PROBF #### [place] [address] .NEUABSon 11-04-2024 Neutrophil, Absolute 7.5 10 3/mcL Normal 2.3-8.1 [facility] Comment on above: Performed By: #### B FPR, GLUBF, BFCT, PROBF #### [place] [id number] BMPon 11-04-2024 BUN/Creatinine Ratio 11.5 ratio Normal 10.0-22.0 [facility] Comment on above: Performed By: #### B FPR, GLUBF, BFCT, PROBF #### [address] [address] Calcium [Mass/Vol] 10.2 mg/dL Normal 8.7-10.4 [facility] Comment on above: Performed By: #### B FPR, GLUBF, BFCT, PROBF #### [address] [address] Chloride [Moles/Vol] 98 mmol/L Normal 98-110 [facility] Comment on above: Performed By: #### B FPR, GLUBF, BFCT, PROBF #### [address] [address] CO2 [Moles/Vol] 32 mmol/L Normal 22-32 [facility] Comment on above: Performed By: #### B FPR, GLUBF, BFCT, PROBF #### [address] [address] Creatinine [Mass/Vol] 2.69 mg/dL High 0.50-1.20 [facility] Comment on above: Result Comment: Test ing performed on [email or web address] analyzer using enzymatic creatinine methodology. Performed By: #### B FPR, GLUBF, BFCT, PROBF #### [place] [address] Electrolyte Balance 11.0 mEq/L Normal 4.0-15.0 [facility] Comment on above: Performed By: #### B FPR, GLUBF, BFCT, PROBF #### [address] [address] Glucose [Mass/Vol] 127 mg/dL High 82-115 [facility] Comment on above: Performed By: #### B FPR, GLUBF, BFCT, PROBF #### [place] [address] Potassium [Moles/Vol] 4.3 mmol/L Normal 3.5-5.0 [facility] Comment on above: Performed By: #### B FPR, GLUBF, BFCT, PROBF #### [place] [id number] Sodium [Moles/Vol] 141 mmol/L Normal 136-145 [facility] Comment on above: Performed By: #### B FPR, GLUBF, BFCT, PROBF #### [address] [address] Urea nitrogen [Mass/Vol] 31.0 mg/dL High 8.0-22.0 [facility] Comment on above: Performed By: #### B FPR, GLUBF, BFCT, PROBF #### [address] [address] CBCon 11-04-2024 Erythrocyte distribution width (RBC) [Ratio] 16.5 % High 11.5-15.5 [facility] Comment on above: Performed By: #### B FPR, GLUBF, BFCT, PROBF #### [place] [address] Hematocrit (Bld) [Volume fraction] 30.4 % Low 34.0-46.0 [facility] Comment on above: Performed By: #### B FPR, GLUBF, BFCT, PROBF #### [place] [address] Hgb 9.7 G/dL Low 12.0-16.0 [facility] Comment on above: Performed By: #### B FPR, GLUBF, BFCT, PROBF #### [place] [address] MCH (RBC) [Entitic mass] 29.7 pg Normal 27.0-33.0 [facility] Comment on above: Performed By: #### B FPR, GLUBF, BFCT, PROBF #### [place] [address] MCHC 31.9 G/dL Low 32.0-36.0 [facility] Comment on above: Performed By: #### B FPR, GLUBF, BFCT, PROBF #### [place] [address] MCV (RBC) [Entitic vol] 93.1 fL Normal 80.0-99.0 [facility] Comment on above: Performed By: #### B FPR, GLUBF, BFCT, PROBF #### [place] [address] Platelet 327 10 3/mcL Normal 150-450 [facility] Comment on above: Performed By: #### B FPR, GLUBF, BFCT, PROBF #### [place] [address] Platelet mean volume (Bld) [Entitic vol] 7.3 fL Normal 6.6-10.5 [facility] Comment on above: Performed By: #### B FPR, GLUBF, BFCT, PROBF #### [place] [address] RBC 3.26 10 6/mcL Low 4.10-5.30 [facility] Comment on above: Performed By: #### B FPR, GLUBF, BFCT, PROBF #### [address] [address] WBC 9.2 10 3/mcL Normal 4.5-10.8 [facility] Comment on above: Performed By: #### B FPR, GLUBF, BFCT, PROBF #### [address] [address] XR CHEST 1 VIEWon 11-03-2024 XR CHEST 1 VIEW ORIGINAL EXAMINATION: ONE XRAY VIEW OF THE CHEST 11/03/2024 6:57 am COMPARISON: 10/28/2024 HISTORY: ORDERING SYSTEM PROVIDED HISTORY: Reason for Exam: sob FINDINGS: Stable positioning of the tracheostomy tube. Stable right IJ approach CVC. Enteric tube courses below the diaphragm and terminates out of field of view. Stable cardiomediastinal silhouette. Mixed interstitial and alveolar airspace pattern. Small bilateral pleural effusions. No pneumothorax. No acute osseous findings. IMPRESSION: Slight interval worsening of the pulmonary edema findings. Small bilateral pleural effusions with adjacent airspace disease. I have personally reviewed the images of this examination, and agree with the resident's findings and interpretation. Interpreted by: Benitez Olivares MD Preliminary Report By: Bud Phan Electronically signed By Benitez Olivares MD Dictated Date: 11/03/2024 7:10:49 AM Prelim Date: 11/03/2024 7:12:47 AM Sign Date: 11/03/2024 7:15:03 AM Ordering Provider: MARY Moore [facility] .Auto Diffon 11-02-2024 Basophil, Absolute 0.1 10 3/mcL Normal 0.0-0.3 [facility] Comment on above: Performed By: #### R BCP #### [address] [address] Basophils/100 WBC (Bld) 1.1 % Normal 0.0-2.5 [facility] Comment on above: Performed By: #### R BCP #### [address] [address] Eosinophil, Absolute 0.0 10 3/mcL Normal 0.0-0.7 [facility] Comment on above: Performed By: #### R BCP #### [address] [address] Eosinophils/100 WBC (Bld) 0.0 % Normal 0.0-6.0 [facility] Comment on above: Performed By: #### R BCP #### [address] [address] Lymphocyte, Absolute 1.4 10 3/mcL Normal 0.9-4.3 [facility] Comment on above: Performed By: #### R BCP #### [address] [address] Lymphocytes/100 WBC (Bld) 16.6 % Low 20.0-40.0 [facility] Comment on above: Performed By: #### R BCP #### [address] [address] Monocyte, Absolute 0.9 10 3/mcL Normal 0.1-1.4 [facility] Comment on above: Performed By: #### R BCP #### [address] [address] Monocytes/100 WBC (Bld) 10.8 % Normal 2.0-13.0 [facility] Comment on above: Performed By: #### R BCP #### [address] [address] Neutrophils/100 WBC (Bld) 71.5 % Normal 50.0-75.0 [facility] Comment on above: Performed By: #### R BCP #### [address] [address] .GFRon 11-02-2024 Estimated Glomerular Filtration Rate 14 ml/min/1.73sqm Normal [facility] Comment on above: Result Comment: Stages of Chronic Kidney Disease (CKD) Stage Description eGFR(ml/min/1.73 sq.m.) CKD 1 Normal kidney function or >=90 normal kindney function with possible kidney damage (ex. Proteinuria) CKD 2 Kidney damage with mild loss 60-89 of kidney function CKD 3a Mild to moderate loss of kidney 45-59 function CKD 3b Moderate to severe loss of 30-44 of kindey function CKD 4 Severe loss of kidney function 15-29 CKD 5 Kidney failure <15 Note: (go live 2024) the eGFR calculation was updated to the 2020 CKD-EPI creatinine equation without a race factor to calculate the eGFR results. Performed By: #### A CHUCK SANON #### [address] [address] .NEUABSon 11-02-2024 Neutrophil, Absolute 6.1 10 3/mcL Normal 2.3-8.1 [facility] Comment on above: Performed By: #### R BCP #### [address] [address] BMPon 11-02-2024 BUN/Creatinine Ratio 12.2 ratio Normal 10.0-22.0 [facility] Comment on above: Performed By: #### R BCP #### [address] [address] Calcium [Mass/Vol] 10.6 mg/dL High 8.7-10.4 [facility] Comment on above: Performed By: #### R BCP #### [place] [id number] Chloride [Moles/Vol] 100 mmol/L Normal 98-110 [facility] Comment on above: Performed By: #### R BCP #### [address] [address] CO2 [Moles/Vol] 28 mmol/L Normal 22-32 [facility] Comment on above: Performed By: #### R BCP #### [address] [address] Creatinine [Mass/Vol] 3.37 mg/dL High 0.50-1.20 [facility] Comment on above: Result Comment: Test ing performed on [email or web address] analyzer using enzymatic creatinine methodology. Performed By: #### R BCP #### [place] [id number] Electrolyte Balance 11.0 mEq/L Normal 4.0-15.0 [facility] Comment on above: Performed By: #### R BCP #### [place] [id number] Glucose [Mass/Vol] 122 mg/dL High 82-115 [facility] Comment on above: Performed By: #### R BCP #### [place] [id number] Potassium [Moles/Vol] 4.1 mmol/L Normal 3.5-5.0 [facility] Comment on above: Performed By: #### R BCP #### [place] [id number] Sodium [Moles/Vol] 139 mmol/L Normal 136-145 [facility] Comment on above: Performed By: #### R BCP #### [place] [id number] Urea nitrogen [Mass/Vol] 41.0 mg/dL High 8.0-22.0 [facility] Comment on above: Performed By: #### R BCP #### [place] [id number] CBCon 11-02-2024 Erythrocyte distribution width (RBC) [Ratio] 15.8 % High 11.5-15.5 [facility] Comment on above: Performed By: #### R BCP #### [place] [id number] Hematocrit (Bld) [Volume fraction] 27.8 % Low 34.0-46.0 [facility] Comment on above: Performed By: #### R BCP #### [place] [id number] Hgb 9.0 G/dL Low 12.0-16.0 [facility] Comment on above: Performed By: #### R BCP #### [place] [id number] MCH (RBC) [Entitic mass] 29.7 pg Normal 27.0-33.0 [facility] Comment on above: Performed By: #### R BCP #### [place] [id number] MCHC 32.2 G/dL Normal 32.0-36.0 [facility] Comment on above: Performed By: #### R BCP #### [place] [id number] MCV (RBC) [Entitic vol] 92.0 fL Normal 80.0-99.0 [facility] Comment on above: Performed By: #### R BCP #### [place] [id number] Platelet 346 10 3/mcL Normal 150-450 [facility] Comment on above: Performed By: #### R BCP #### [place] [id number] Platelet mean volume (Bld) [Entitic vol] 7.5 fL Normal 6.6-10.5 [facility] Comment on above: Performed By: #### R BCP #### [place] [address] RBC 3.03 10 6/mcL Low 4.10-5.30 [facility] Comment on above: Performed By: #### R BCP #### [place] [address] WBC 8.5 10 3/mcL Normal 4.5-10.8 [facility] Comment on above: Performed By: #### R BCP #### [address] [address] .Auto Diffon 10-30-2024 Basophil, Absolute 0.0 10 3/mcL Normal 0.0-0.3 [facility] Comment on above: Performed By: #### H BSAG, HBSAB #### [address] [address] Basophils/100 WBC (Bld) 0.6 % Normal 0.0-2.5 [facility] Comment on above: Performed By: #### H BSAG, HBSAB #### [address] [address] Eosinophil, Absolute 0.0 10 3/mcL Normal 0.0-0.7 [facility] Comment on above: Performed By: #### H BSAG, HBSAB #### [address] [address] Eosinophils/100 WBC (Bld) 0.0 % Normal 0.0-6.0 [facility] Comment on above: Performed By: #### H BSAG, HBSAB #### [facility] [address] [place] [address] Lymphocyte, Absolute 1.4 10 3/mcL Normal 0.9-4.3 [facility] Comment on above: Performed By: #### H BSAG, HBSAB #### [facility] [address] [place] [address] Lymphocytes/100 WBC (Bld) 18.0 % Low 20.0-40.0 [facility] Comment on above: Performed By: #### H BSAG, HBSAB #### [facility] [address] [place] [address] Monocyte, Absolute 1.0 10 3/mcL Normal 0.1-1.4 [facility] Comment on above: Performed By: #### H BSAG, HBSAB #### [facility] [address] [place] [address] Monocytes/100 WBC (Bld) 12.3 % Normal 2.0-13.0 [facility] Comment on above: Performed By: #### H BSAG, HBSAB #### [facility] [address] [place] [address] Neutrophils/100 WBC (Bld) 69.1 % Normal 50.0-75.0 [facility] Comment on above: Performed By: #### H BSAG, HBSAB #### [address] [address] .GFRon 10-30-2024 Estimated Glomerular Filtration Rate 18 ml/min/1.73sqm Normal [facility] Comment on above: Result Comment: Stages of Chronic Kidney Disease (CKD) Stage Description eGFR(ml/min/1.73 sq.m.) CKD 1 Normal kidney function or >=90 normal kindney function with possible kidney damage (ex. Proteinuria) CKD 2 Kidney damage with mild loss 60-89 of kidney function CKD 3a Mild to moderate loss of kidney 45-59 function CKD 3b Moderate to severe loss of 30-44 of kindey function CKD 4 Severe loss of kidney function 15-29 CKD 5 Kidney failure <15 Note: (go live 2024) the eGFR calculation was updated to the 2020 CKD-EPI creatinine equation without a race factor to calculate the eGFR results. Performed By: #### H BSAG, HBSAB #### [address] [address] .NEUABSon 10-30-2024 Neutrophil, Absolute 5.4 10 3/mcL Normal 2.3-8.1 [facility] Comment on above: Performed By: #### H BSAG, HBSAB #### [address] [address] BMPon 10-30-2024 BUN/Creatinine Ratio 9.0 ratio Low 10.0-22.0 [facility] Comment on above: Performed By: #### H BSAG, HBSAB #### [place] [id number] Calcium [Mass/Vol] 9.9 mg/dL Normal 8.7-10.4 [facility] Comment on above: Performed By: #### H BSAG, HBSAB #### [place] [id number] Chloride [Moles/Vol] 102 mmol/L Normal 98-110 [facility] Comment on above: Performed By: #### H BSAG, HBSAB #### [place] [id number] CO2 [Moles/Vol] 27 mmol/L Normal 22-32 [facility] Comment on above: Performed By: #### H BSAG, HBSAB #### [address] [address] Creatinine [Mass/Vol] 2.78 mg/dL High 0.50-1.20 [facility] Comment on above: Result Comment: Test ing performed on [email or web address] analyzer using enzymatic creatinine methodology. Performed By: #### H BSAG, HBSAB #### [address] [address] Electrolyte Balance 10.0 mEq/L Normal 4.0-15.0 [facility] Comment on above: Performed By: #### H BSAG, HBSAB #### [place] [id number] Glucose [Mass/Vol] 123 mg/dL High 82-115 [facility] Comment on above: Performed By: #### H BSAG, HBSAB #### [address] [address] Potassium [Moles/Vol] 3.9 mmol/L Normal 3.5-5.0 [facility] Comment on above: Performed By: #### H BSAG, HBSAB #### [address] [address] Sodium [Moles/Vol] 139 mmol/L Normal 136-145 [facility] Comment on above: Performed By: #### H BSAG, HBSAB #### [address] [address] Urea nitrogen [Mass/Vol] 25.0 mg/dL High 8.0-22.0 [facility] Comment on above: Performed By: #### H BSAG, HBSAB #### [address] [address] CBCon 10-30-2024 Erythrocyte distribution width (RBC) [Ratio] 16.6 % High 11.5-15.5 [facility] Comment on above: Performed By: #### H BSAG, HBSAB #### [address] [address] Hematocrit (Bld) [Volume fraction] 26.8 % Low 34.0-46.0 [facility] Comment on above: Performed By: #### H BSAG, HBSAB #### [address] [address] Hgb 8.7 G/dL Low 12.0-16.0 [facility] Comment on above: Performed By: #### H BSAG, HBSAB #### [address] [address] MCH (RBC) [Entitic mass] 30.1 pg Normal 27.0-33.0 [facility] Comment on above: Performed By: #### H BSAG, HBSAB #### [address] [address] MCHC 32.4 G/dL Normal 32.0-36.0 [facility] Comment on above: Performed By: #### H BSAG, HBSAB #### [address] [address] MCV (RBC) [Entitic vol] 92.9 fL Normal 80.0-99.0 [facility] Comment on above: Performed By: #### H BSAG, HBSAB #### [place] [id number] [address] Platelet 340 10 3/mcL Normal 150-450 [facility] Comment on above: Performed By: #### H BSAG, HBSAB #### [place] [address] Platelet mean volume (Bld) [Entitic vol] 7.7 fL Normal 6.6-10.5 [facility] Comment on above: Performed By: #### H BSAG, HBSAB #### [place] [address] RBC 2.89 10 6/mcL Low 4.10-5.30 [facility] Comment on above: Performed By: #### H BSAG, HBSAB #### [place] [address] WBC 7.9 10 3/mcL Normal 4.5-10.8 [facility] Comment on above: Performed By: #### H BSAG, HBSAB #### [place] [address] BFPRon 10-29-2024 Body Fluid Path Review Normal [facility] Comment on above: Order Comment: Added by Discern Result Comment: Nega tive for malignant cells. (This evaluation is based on a screening review of one cytospin slide prepared primarily for differential cell count; if clinical index of suspicion is high, Cytology evaluation is recommended, as clinically indicated) Electronically signed by: RENÉ PALACIOS MD 10.29.2024 11:54 EDT Performed By: #### B FPR, GLUBF, BFCT, PROBF #### [place] [address] CDIFPCRon 10-29-2024 Clostridium difficile PCR Negative Normal Negative [facility] Comment on above: Order Comment: C. Di ff Indications->Acute C. Diff episode ??? Patient has had 3 or more watery stools in last 24 hours AND has S/S of acute episode (i.e. leukocytosis, abdominal pain, fever, nausea or vomiting) Result Comment: Note s [id number] Performed By: #### R BCP #### [address] [address] Clostridium difficile PCR Int See Below Normal [facility] Comment on above: Order Comment: C. Di ff Indications->Acute C. Diff episode ??? Patient has had 3 or more watery stools in last 24 hours AND has S/S of acute episode (i.e. leukocytosis, abdominal pain, fever, nausea or vomiting) Result Comment: Clinical Interpretation: No tcdB gene DNA detected. Negative test results may occur from improper collection, handling or storage of specimen, technical error, or extremely low levels of target below the limit of detection of the assay. Performed By: #### R BCP #### [place] [address] .Auto Diffon 10-28-2024 Basophil, Absolute 0.0 10 3/mcL Normal 0.0-0.3 [facility] Comment on above: Performed By: #### T VINITA #### [address] [address] Basophils/100 WBC (Bld) 0.5 % Normal 0.0-2.5 [facility] Comment on above: Performed By: #### T VINITA #### [address] [address] Eosinophil, Absolute 0.0 10 3/mcL Normal 0.0-0.7 [facility] Comment on above: Performed By: #### T VINITA #### [address] [address] Eosinophils/100 WBC (Bld) 0.0 % Normal 0.0-6.0 [facility] Comment on above: Performed By: #### T ROPHS #### [address] [address] Lymphocyte, Absolute 1.4 10 3/mcL Normal 0.9-4.3 [facility] Comment on above: Performed By: #### T VINITA #### [address] [address] Lymphocytes/100 WBC (Bld) 18.9 % Low 20.0-40.0 [facility] Comment on above: Performed By: #### T VINITA #### [address] [address] Monocyte, Absolute 1.0 10 3/mcL Normal 0.1-1.4 [facility] Comment on above: Performed By: #### T VINITA #### [address] [address] Monocytes/100 WBC (Bld) 13.3 % High 2.0-13.0 [facility] Comment on above: Performed By: #### T VINITA #### [address] [address] Neutrophils/100 WBC (Bld) 67.3 % Normal 50.0-75.0 [facility] Comment on above: Performed By: #### T VINITA #### [place] [address] .GFRon 10-28-2024 Estimated Glomerular Filtration Rate 15 ml/min/1.73sqm Normal [facility] Comment on above: Result Comment: Stages of Chronic Kidney Disease (CKD) Stage Description eGFR(ml/min/1.73 sq.m.) CKD 1 Normal kidney function or >=90 normal kindney function with possible kidney damage (ex. Proteinuria) CKD 2 Kidney damage with mild loss 60-89 of kidney function CKD 3a Mild to moderate loss of kidney 45-59 function CKD 3b Moderate to severe loss of 30-44 of kindey function CKD 4 Severe loss of kidney function 15-29 CKD 5 Kidney failure <15 Note: (go live 2024) the eGFR calculation was updated to the 2020 CKD-EPI creatinine equation without a race factor to calculate the eGFR results. Performed By: #### T VINITA #### [address] [address] .NEUABSon 10-28-2024 Neutrophil, Absolute 4.9 10 3/mcL Normal 2.3-8.1 [facility] Comment on above: Performed By: #### T VINITA #### [place] [id number] BFCTon 10-28-2024 Basophils/100 WBC (Bld) 1 % [facility] Comment on above: Performed By: #### B FPR, GLUBF, BFCT, PROBF #### [address] [address] Cells Counted BF 100 [facility] Comment on above: Performed By: #### B FPR, GLUBF, BFCT, PROBF #### [address] [address] Eosinophils/100 WBC (Bld) 1 % [facility] Comment on above: Performed By: #### B FPR, GLUBF, BFCT, PROBF #### [address] [address] Lymphocytes/100 WBC (Bld) 70 % [facility] Comment on above: Performed By: #### B FPR, GLUBF, BFCT, PROBF #### [address] [address] Mesothelial Cell % BF 8 % Normal [facility] Comment on above: Performed By: #### B FPR, GLUBF, BFCT, PROBF #### [address] [address] Mononuclear cell % BF 4 % [facility] Comment on above: Performed By: #### B FPR, GLUBF, BFCT, PROBF #### [address] [address] Neutrophils/100 WBC (Bld) 16 % [facility] Comment on above: Performed By: #### B FPR, GLUBF, BFCT, PROBF #### [address] [address] Body Fluid Source Pleural fluid [facility] Comment on above: Result Comment: Refe rence ranges have not been established for this body fluid. The test results must be integrated into the clinical context for interpretation. Performed By: #### B FPR, GLUBF, BFCT, PROBF #### [address] [address] Total Nucleated Cells 233 /mm3 [facility] Comment on above: Performed By: #### B FPR, GLUBF, BFCT, PROBF #### [address] [address] CBCon 10-28-2024 Erythrocyte distribution width (RBC) [Ratio] 16.0 % High 11.5-15.5 [facility] Comment on above: Performed By: #### T VINITA #### [place] [address] Hematocrit (Bld) [Volume fraction] 29.0 % Low 34.0-46.0 [facility] Comment on above: Performed By: #### T VINITA #### [place] [address] Hgb 9.4 G/dL Low 12.0-16.0 [facility] Comment on above: Performed By: #### T VINITA #### [place] [address] MCH (RBC) [Entitic mass] 29.7 pg Normal 27.0-33.0 [facility] Comment on above: Performed By: #### T VINITA #### [place] [address] MCHC 32.5 G/dL Normal 32.0-36.0 [facility] Comment on above: Performed By: #### T VINITA #### [place] [address] MCV (RBC) [Entitic vol] 91.5 fL Normal 80.0-99.0 [facility] Comment on above: Performed By: #### T VINITA #### [place] [address] Platelet 367 10 3/mcL Normal 150-450 [facility] Comment on above: Performed By: #### T VINITA #### [place] [id number] Platelet mean volume (Bld) [Entitic vol] 7.9 fL Normal 6.6-10.5 [facility] Comment on above: Performed By: #### T VINITA #### [place] [address] RBC 3.17 10 6/mcL Low 4.10-5.30 [facility] Comment on above: Performed By: #### T RANDALL #### [place] [address] WBC 7.3 10 3/mcL Normal 4.5-10.8 [facility] Comment on above: Performed By: #### T RANDALL #### [place] [id number] CMPon 10-28-2024 Albumin Level 2.6 G/dL Low 3.2-4.8 [facility] Comment on above: Performed By: #### B FPR, GLUBF, BFCT, PROBF #### [place] [address] Albumin/Globulin [Mass ratio] 0.8 {ratio} Low 0.9-1.6 [facility] Comment on above: Performed By: #### B FPR, GLUBF, BFCT, PROBF #### [place] [address] ALP [Catalytic activity/Vol] 172 U/L High 38-126 [facility] Comment on above: Performed By: #### B FPR, GLUBF, BFCT, PROBF #### [place] [address] ALT [Catalytic activity/Vol] 20 U/L Normal 10-49 [facility] Comment on above: Performed By: #### B FPR, GLUBF, BFCT, PROBF #### [place] [address] AST [Catalytic activity/Vol] 26 U/L Normal 8-34 [facility] Comment on above: Performed By: #### B FPR, GLUBF, BFCT, PROBF #### [place] [address] Bili Total 0.60 mg/dL Normal 0.20-1.20 [facility] Comment on above: Result Comment: Use of this assay is not recommended for patients undergoing treatment with eltrombopag due to the potential for falsely elevated results. Performed By: #### B FPR, GLUBF, BFCT, PROBF #### [place] [id number] BUN/Creatinine Ratio 12.4 ratio Normal 10.0-22.0 [facility] Comment on above: Performed By: #### B FPR, GLUBF, BFCT, PROBF #### [address] [address] Calcium [Mass/Vol] 10.3 mg/dL Normal 8.7-10.4 [facility] Comment on above: Performed By: #### B FPR, GLUBF, BFCT, PROBF #### [address] [address] Chloride [Moles/Vol] 101 mmol/L Normal 98-110 [facility] Comment on above: Performed By: #### B FPR, GLUBF, BFCT, PROBF #### [place] [id number] CO2 [Moles/Vol] 30 mmol/L Normal 22-32 [facility] Comment on above: Performed By: #### B FPR, GLUBF, BFCT, PROBF #### [address] [address] Creatinine [Mass/Vol] 3.15 mg/dL High 0.50-1.20 [facility] Comment on above: Result Comment: Test ing performed on [email or web address] analyzer using enzymatic creatinine methodology. Performed By: #### B FPR, GLUBF, BFCT, PROBF #### [place] [id number] Electrolyte Balance 9.0 mEq/L Normal 4.0-15.0 [facility] Comment on above: Performed By: #### B FPR, GLUBF, BFCT, PROBF #### [address] [address] Globulin 3.4 G/dL Normal 2.5-4.2 [facility] Comment on above: Performed By: #### B FPR, GLUBF, BFCT, PROBF #### [address] [address] Glucose [Mass/Vol] 110 mg/dL Normal 82-115 [facility] Comment on above: Performed By: #### B FPR, GLUBF, BFCT, PROBF #### [place] [id number] Potassium [Moles/Vol] 3.8 mmol/L Normal 3.5-5.0 [facility] Comment on above: Performed By: #### B FPR, GLUBF, BFCT, PROBF #### [place] [id number] Sodium [Moles/Vol] 140 mmol/L Normal 136-145 [facility] Comment on above: Performed By: #### B FPR, GLUBF, BFCT, PROBF #### [place] [address] Total Protein 6.0 G/dL Normal 5.7-8.2 [facility] Comment on above: Performed By: #### B FPR, GLUBF, BFCT, PROBF #### [place] [address] Urea nitrogen [Mass/Vol] 39.0 mg/dL High 8.0-22.0 [facility] Comment on above: Performed By: #### B FPR, GLUBF, BFCT, PROBF #### [place] [address] GLUBFon 10-28-2024 Glucose BF 125.0 mg/dL Normal [facility] Comment on above: Performed By: #### B FPR, GLUBF, BFCT, PROBF #### [place] [address] Glucose Body Fluid Spec Type Pleural fluid Normal [facility] Comment on above: Result Comment: The reference interval(s) and other method performance specifications have not been established for this body fluid. The test result must be integrated into the clinical content for interpretation. Performed By: #### B FPR, GLUBF, BFCT, PROBF #### [place] [address] PROBFon 10-28-2024 Protein BF 2.0 G/dL Normal [facility] Comment on above: Performed By: #### B FPR, GLUBF, BFCT, PROBF #### [address] [address] Protein BF Type Pleural fluid Normal [facility] Comment on above: Result Comment: The reference interval(s) and other method performance specifications have not been established for this body fluid. The test result must be integrated into the clinical content for interpretation. Performed By: #### B FPR, GLUBF, BFCT, PROBF #### [address] [address] XR CHEST 1 VIEWon 10-28-2024 XR CHEST 1 VIEW ORIGINAL EXAMINATION: ONE XRAY VIEW OF THE CHEST 10/28/2024 12:16 pm COMPARISON: 10/27/2024 HISTORY: ORDERING SYSTEM PROVIDED HISTORY: Reason for Exam: s/p LEFT thoracentesis FINDINGS: Tracheostomy. Partially visualized enteric tube. Cardiomediastinal silhouette is stable. There is unchanged moderate pulmonary edema with peribronchial thickening and diffuse interstitial pattern. Hazy bibasilar infiltrates. There is improved left base infiltrate related to left thoracentesis without significant pleural fluid remaining. Small right pleural effusion is suspected. No pneumothorax. Right double lumen hemodialysis catheter unchanged. IMPRESSION: Relatively resolved left pleural effusion with residual right basilar airspace disease. No pneumothorax. Trivial right pleural fluid and right basilar opacity. Moderate pulmonary edema. Interpreted by: Aliya Brown Preliminary Report By: Aliya Brown Electronically signed By Aliya Brown Dictated Date: 10/28/2024 12:20:43 PM Prelim Date: 10/28/2024 12:22:21 PM Sign Date: 10/28/2024 12:22:21 PM Ordering Provider: SHERIDAN ODONNELL Normal [facility] FESon 10-27-2024 Iron [Mass/Vol] 25 ug/dL Low 50-170 [facility] Comment on above: Performed By: #### A CHUCK SANON #### [address] [address] Iron Sat 10 % Normal [facility] Comment on above: Performed By: #### A CHUCK SANON #### [address] [address] TIBC 255 mcg/dL Normal 250-500 [facility] Comment on above: Performed By: #### A CHUCK SANON #### [address] [address] XR CHEST 1 VIEWon 10-27-2024 XR CHEST 1 VIEW ORIGINAL EXAMINATION: ONE XRAY VIEW OF THE CHEST 10/27/2024 11:53 am COMPARISON: 10/22/2024 HISTORY: ORDERING SYSTEM PROVIDED HISTORY: Reason for Exam: s/p RIGHT thoracentesis FINDINGS: Permanent tracheostomy tube, right IJ dialysis catheter, and orogastric tube remain in functional and stable positions. There is continued pulmonary vascular cephalization, veiling of the lower lobe vessels, small bibasilar effusions and a top-normal cardiac size. This is unchanged from prior study. IMPRESSION: 1. Persistent pulmonary edema pattern. 2. No pneumothorax. Interpreted by: Casimiro Melvin DO Preliminary Report By: Casimiro Melvin DO Electronically signed By Casimiro Melvin DO Dictated Date: 10/27/2024 12:10:38 PM Prelim Date: 10/27/2024 12:11:44 PM Sign Date: 10/27/2024 12:11:44 PM Ordering Provider: SHERIDAN ODONNELL Normal [facility] .Auto Diffon 10-26-2024 Basophil, Absolute 0.0 10 3/mcL Normal 0.0-0.3 [facility] Comment on above: Performed By: #### A CHUCK SANON #### [address] [address] Basophils/100 WBC (Bld) 0.3 % Normal 0.0-2.5 [facility] Comment on above: Performed By: #### A CHUCK SANON #### [address] [address] Eosinophil, Absolute 0.0 10 3/mcL Normal 0.0-0.7 [facility] Comment on above: Performed By: #### A CHUCK SANON #### [address] [address] Eosinophils/100 WBC (Bld) 0.0 % Normal 0.0-6.0 [facility] Comment on above: Performed By: #### A CHUCK SANON #### [address] [address] Lymphocyte, Absolute 1.0 10 3/mcL Normal 0.9-4.3 [facility] Comment on above: Performed By: #### A MICK SANONGEL #### [address] [address] Lymphocytes/100 WBC (Bld) 16.4 % Low 20.0-40.0 [facility] Comment on above: Performed By: #### A TALITA ABSGEL #### [address] [address] Monocyte, Absolute 1.1 10 3/mcL Normal 0.1-1.4 [facility] Comment on above: Performed By: #### A MICK SANONGEL #### [address] [address] Monocytes/100 WBC (Bld) 16.7 % High 2.0-13.0 [facility] Comment on above: Performed By: #### A MICK SANONGEL #### [address] [address] Neutrophils/100 WBC (Bld) 66.6 % Normal 50.0-75.0 [facility] Comment on above: Performed By: #### A MICK SANONGEL #### [address] [address] .GFRon 10-26-2024 Estimated Glomerular Filtration Rate 13 ml/min/1.73sqm Normal [facility] Comment on above: Result Comment: Stages of Chronic Kidney Disease (CKD) Stage Description eGFR(ml/min/1.73 sq.m.) CKD 1 Normal kidney function or >=90 normal kindney function with possible kidney damage (ex. Proteinuria) CKD 2 Kidney damage with mild loss 60-89 of kidney function CKD 3a Mild to moderate loss of kidney 45-59 function CKD 3b Moderate to severe loss of 30-44 of kindey function CKD 4 Severe loss of kidney function 15-29 CKD 5 Kidney failure <15 Note: (go live 2024) the eGFR calculation was updated to the 2020 CKD-EPI creatinine equation without a race factor to calculate the eGFR results. Performed By: #### A MICK SANONGEL #### [address] [address] .NEUABSon 10-26-2024 Neutrophil, Absolute 4.2 10 3/mcL Normal 2.3-8.1 [facility] Comment on above: Performed By: #### A CHUCK SANON #### [address] [address] CBCon 10-26-2024 Erythrocyte distribution width (RBC) [Ratio] 15.9 % High 11.5-15.5 [facility] Comment on above: Performed By: #### A CHUCK SANON #### [place] [address] Hematocrit (Bld) [Volume fraction] 28.2 % Low 34.0-46.0 [facility] Comment on above: Performed By: #### A CHUCK SANON #### [place] [address] Hgb 9.4 G/dL Low 12.0-16.0 [facility] Comment on above: Performed By: #### A CHUCK SANON #### [place] [address] MCH (RBC) [Entitic mass] 30.4 pg Normal 27.0-33.0 [facility] Comment on above: Performed By: #### CHUCK YOUNGBLOOD #### [place] [address] MCHC 33.2 G/dL Normal 32.0-36.0 [facility] Comment on above: Performed By: #### CHUCK YOUNGBLOOD #### [place] [address] MCV (RBC) [Entitic vol] 91.6 fL Normal 80.0-99.0 [facility] Comment on above: Performed By: #### CHUCK YOUNGBLOOD #### [place] [id number] Platelet 366 10 3/mcL Normal 150-450 [facility] Comment on above: Performed By: #### CHUCK YOUNGBLOOD #### [place] [id number] Platelet mean volume (Bld) [Entitic vol] 7.8 fL Normal 6.6-10.5 [facility] Comment on above: Performed By: #### A CHUCK SANON #### [address] [address] RBC 3.08 10 6/mcL Low 4.10-5.30 [facility] Comment on above: Performed By: #### A CHUCK SANON #### [address] [address] WBC 6.3 10 3/mcL Normal 4.5-10.8 [facility] Comment on above: Performed By: #### A CHUCK SANON #### [address] [address] CMPon 10-26-2024 Albumin Level 2.4 G/dL Low 3.2-4.8 [facility] Comment on above: Performed By: #### CHUCK YOUNGBLOOD #### [place] [address] Albumin/Globulin [Mass ratio] 0.8 {ratio} Low 0.9-1.6 [facility] Comment on above: Performed By: #### CHUCK YOUNGBLOOD #### [address] [address] ALP [Catalytic activity/Vol] 147 U/L High 38-126 [facility] Comment on above: Performed By: #### CHUCK YOUNGBLOOD #### [address] [address] ALT [Catalytic activity/Vol] 23 U/L Normal 10-49 [facility] Comment on above: Performed By: #### A CHUCK SANON #### [address] [address] AST [Catalytic activity/Vol] 29 U/L Normal 8-34 [facility] Comment on above: Performed By: #### CHUCK YOUNGBLOOD #### [address] [address] Bili Total 0.70 mg/dL Normal 0.20-1.20 [facility] Comment on above: Result Comment: Use of this assay is not recommended for patients undergoing treatment with eltrombopag due to the potential for falsely elevated results. Performed By: #### A CHUCK SANON #### [address] [address] BUN/Creatinine Ratio 12.6 ratio Normal 10.0-22.0 [facility] Comment on above: Performed By: #### A MICK SANONGEL #### [address] [address] Calcium [Mass/Vol] 10.1 mg/dL Normal 8.7-10.4 [facility] Comment on above: Performed By: #### A CHUCK SANON #### [address] [address] Chloride [Moles/Vol] 97 mmol/L Low 98-110 [facility] Comment on above: Performed By: #### A CHUCK SANON #### [address] [address] CO2 [Moles/Vol] 29 mmol/L Normal 22-32 [facility] Comment on above: Performed By: #### A CHUCK SANON #### [address] [address] Creatinine [Mass/Vol] 3.57 mg/dL High 0.50-1.20 [facility] Comment on above: Result Comment: Test ing performed on [email or web address] analyzer using enzymatic creatinine methodology. Performed By: #### A CHUCK SANON #### [place] [id number] Electrolyte Balance 13.0 mEq/L Normal 4.0-15.0 [facility] Comment on above: Performed By: #### A CHUCK SANON #### [address] [address] Globulin 3.2 G/dL Normal 2.5-4.2 [facility] Comment on above: Performed By: #### A CHUCK SANON #### [address] [address] Glucose [Mass/Vol] 116 mg/dL High 82-115 [facility] Comment on above: Performed By: #### A CHUCK SANON #### [facility] [address] [place] [address] Potassium [Moles/Vol] 4.0 mmol/L Normal 3.5-5.0 [facility] Comment on above: Performed By: #### A CHUCK SANON #### [address] [address] Sodium [Moles/Vol] 139 mmol/L Normal 136-145 [facility] Comment on above: Performed By: #### A CHUCK SANON #### [address] [address] Total Protein 5.6 G/dL Low 5.7-8.2 [facility] Comment on above: Performed By: #### A CHUCK SANON #### [address] [address] Urea nitrogen [Mass/Vol] 45.0 mg/dL High 8.0-22.0 [facility] Comment on above: Performed By: #### CHUCK YOUNGBLOOD #### [address] [address] XR SHOULDER MINIMUM 2 VIEWS RIGHTon 10-25-2024 XR SHOULDER MINIMUM 2 VIEWS RIGHT ORIGINAL EXAMINATION: 3 XRAY VIEWS OF THE RIGHT SHOULDER 10/25/2024 10:55 am COMPARISON: None. HISTORY: ORDERING SYSTEM PROVIDED HISTORY: Reason for Exam: pain FINDINGS: No acute fracture or dislocation. The humeral head is appropriately seated within the glenoid. The acromioclavicular and acromioclavicular distances are maintained. Mild degenerative changes of the AC joint. Right central venous catheter is noted with tip in unchanged position. Bilateral interstitial prominence with likely small right pleural effusion is not significantly changed. IMPRESSION: No acute radiographic findings. Mild right AC joint degenerative change. No significant change in pulmonary edema with small right pleural effusion. Interpreted by: Marcus Dewitt Preliminary Report By: Marcus Dewitt Electronically signed By Marcus Dewitt Dictated Date: 10/25/2024 10:59:26 AM Prelim Date: 10/25/2024 11:01:42 AM Sign Date: 10/25/2024 11:01:42 AM Ordering Provider: TRINH BANEGAS [facility] HBSABon 10-24-2024 Hep B Surf Ab 10.9 mIU/mL Normal >=10.0 [facility] Comment on above: Result Comment: 0 to < 10.0 mIU/mL Nonreactive Patient is considered not to have protective immunity to HBV infection >/= 10.0 mIU/mL Reactive Patient is considered to have protective immunity to HBV infection. This assay is traceable to the World Health Organization (WHO) Hepatitis B Immunoglobulin 1st International Reference Preparation (1976). The accepted criteria for immunity to HBV is anti-HBs activity >/= 10.0 mIU/mL, as defined by the WHO International Reference Preparation. Performed By: #### H BSAG, HBSAB #### [place] [address] HBSAGon 10-24-2024 Hep B Surf Ag Non-Reactive Normal Non-Reactive [facility] Comment on above: Performed By: #### H BSAG, HBSAB #### [place] [address] .Auto Diffon 10-23-2024 Basophil, Absolute 0.0 10 3/mcL Normal 0.0-0.3 [facility] Comment on above: Performed By: #### B FPR, GLUBF, BFCT, PROBF #### [place] [address] Basophils/100 WBC (Bld) 0.6 % Normal 0.0-2.5 [facility] Comment on above: Performed By: #### B FPR, GLUBF, BFCT, PROBF #### [place] [address] Eosinophil, Absolute 0.0 10 3/mcL Normal 0.0-0.7 [facility] Comment on above: Performed By: #### B FPR, GLUBF, BFCT, PROBF #### [place] [address] Eosinophils/100 WBC (Bld) 0.0 % Normal 0.0-6.0 [facility] Comment on above: Performed By: #### B FPR, GLUBF, BFCT, PROBF #### [facility] [address] [place], [place] [address] Lymphocyte, Absolute 1.3 10 3/mcL Normal 0.9-4.3 [facility] Comment on above: Performed By: #### B FPR, GLUBF, BFCT, PROBF #### [address] [address] Lymphocytes/100 WBC (Bld) 23.7 % Normal 20.0-40.0 [facility] Comment on above: Performed By: #### B FPR, GLUBF, BFCT, PROBF #### [address] [address] Monocyte, Absolute 1.1 10 3/mcL Normal 0.1-1.4 [facility] Comment on above: Performed By: #### B FPR, GLUBF, BFCT, PROBF #### [address] [address] Monocytes/100 WBC (Bld) 18.6 % High 2.0-13.0 [facility] Comment on above: Performed By: #### B FPR, GLUBF, BFCT, PROBF #### [address] [address] Neutrophils/100 WBC (Bld) 57.1 % Normal 50.0-75.0 [facility] Comment on above: Performed By: #### B FPR, GLUBF, BFCT, PROBF #### [address] [address] .GFRon 10-23-2024 Estimated Glomerular Filtration Rate 17 ml/min/1.73sqm Normal [facility] Comment on above: Result Comment: Stages of Chronic Kidney Disease (CKD) Stage Description eGFR(ml/min/1.73 sq.m.) CKD 1 Normal kidney function or >=90 normal kindney function with possible kidney damage (ex. Proteinuria) CKD 2 Kidney damage with mild loss 60-89 of kidney function CKD 3a Mild to moderate loss of kidney 45-59 function CKD 3b Moderate to severe loss of 30-44 of kindey function CKD 4 Severe loss of kidney function 15-29 CKD 5 Kidney failure <15 Note: (go live 2024) the eGFR calculation was updated to the 2020 CKD-EPI creatinine equation without a race factor to calculate the eGFR results. Performed By: #### B FPR, GLUBF, BFCT, PROBF #### [place] [address] .NEUABSon 10-23-2024 Neutrophil, Absolute 3.2 10 3/mcL Normal 2.3-8.1 [facility] Comment on above: Performed By: #### B FPR, GLUBF, BFCT, PROBF #### [place] [address] CBCon 10-23-2024 Erythrocyte distribution width (RBC) [Ratio] 16.1 % High 11.5-15.5 [facility] Comment on above: Performed By: #### B FPR, GLUBF, BFCT, PROBF #### [place] [address] Hematocrit (Bld) [Volume fraction] 26.9 % Low 34.0-46.0 [facility] Comment on above: Performed By: #### B FPR, GLUBF, BFCT, PROBF #### [place] [address] Hgb 8.8 G/dL Low 12.0-16.0 [facility] Comment on above: Performed By: #### B FPR, GLUBF, BFCT, PROBF #### [place] [address] MCH (RBC) [Entitic mass] 30.1 pg Normal 27.0-33.0 [facility] Comment on above: Performed By: #### B FPR, GLUBF, BFCT, PROBF #### [place] [address] MCHC 32.9 G/dL Normal 32.0-36.0 [facility] Comment on above: Performed By: #### B FPR, GLUBF, BFCT, PROBF #### [place] [address] MCV (RBC) [Entitic vol] 91.6 fL Normal 80.0-99.0 [facility] Comment on above: Performed By: #### B FPR, GLUBF, BFCT, PROBF #### [address] [address] Platelet 379 10 3/mcL Normal 150-450 [facility] Comment on above: Performed By: #### B FPR, GLUBF, BFCT, PROBF #### [address] [address] Platelet mean volume (Bld) [Entitic vol] 7.8 fL Normal 6.6-10.5 [facility] Comment on above: Performed By: #### B FPR, GLUBF, BFCT, PROBF #### [address] [address] RBC 2.93 10 6/mcL Low 4.10-5.30 [facility] Comment on above: Performed By: #### B FPR, GLUBF, BFCT, PROBF #### [address] [address] WBC 5.7 10 3/mcL Normal 4.5-10.8 [facility] Comment on above: Performed By: #### B FPR, GLUBF, BFCT, PROBF #### [address] [address] CMPon 10-23-2024 Albumin Level 2.3 G/dL Low 3.2-4.8 [facility] Comment on above: Performed By: #### B FPR, GLUBF, BFCT, PROBF #### [address] [address] Albumin/Globulin [Mass ratio] 0.7 {ratio} Low 0.9-1.6 [facility] Comment on above: Performed By: #### B FPR, GLUBF, BFCT, PROBF #### [address] [address] ALP [Catalytic activity/Vol] 148 U/L High 38-126 [facility] Comment on above: Performed By: #### B FPR, GLUBF, BFCT, PROBF #### [address] [address] ALT [Catalytic activity/Vol] 29 U/L Normal 10-49 [facility] Comment on above: Performed By: #### B FPR, GLUBF, BFCT, PROBF #### [address] [address] AST [Catalytic activity/Vol] 36 U/L High 8-34 [facility] Comment on above: Performed By: #### B FPR, GLUBF, BFCT, PROBF #### [place] [address] Bili Total 0.80 mg/dL Normal 0.20-1.20 [facility] Comment on above: Result Comment: Use of this assay is not recommended for patients undergoing treatment with eltrombopag due to the potential for falsely elevated results. Performed By: #### B FPR, GLUBF, BFCT, PROBF #### [place] [address] BUN/Creatinine Ratio 10.0 ratio Normal 10.0-22.0 [facility] Comment on above: Performed By: #### B FPR, GLUBF, BFCT, PROBF #### [place] [id number] Calcium [Mass/Vol] 8.9 mg/dL Normal 8.7-10.4 [facility] Comment on above: Performed By: #### B FPR, GLUBF, BFCT, PROBF #### [address] [address] Chloride [Moles/Vol] 100 mmol/L Normal 98-110 [facility] Comment on above: Performed By: #### B FPR, GLUBF, BFCT, PROBF #### [place] [id number] CO2 [Moles/Vol] 27 mmol/L Normal 22-32 [facility] Comment on above: Performed By: #### B FPR, GLUBF, BFCT, PROBF #### [place] [id number] Creatinine [Mass/Vol] 2.90 mg/dL High 0.50-1.20 [facility] Comment on above: Result Comment: Test ing performed on [email or web address] analyzer using enzymatic creatinine methodology. Performed By: #### B FPR, GLUBF, BFCT, PROBF #### [address] [address] Electrolyte Balance 13.0 mEq/L Normal 4.0-15.0 [facility] Comment on above: Performed By: #### B FPR, GLUBF, BFCT, PROBF #### [address] [address] Globulin 3.2 G/dL Normal 2.5-4.2 [facility] Comment on above: Performed By: #### B FPR, GLUBF, BFCT, PROBF #### [address] [address] Glucose [Mass/Vol] 105 mg/dL Normal 82-115 [facility] Comment on above: Performed By: #### B FPR, GLUBF, BFCT, PROBF #### [address] [address] Potassium [Moles/Vol] 4.0 mmol/L Normal 3.5-5.0 [facility] Comment on above: Performed By: #### B FPR, GLUBF, BFCT, PROBF #### [address] [address] Sodium [Moles/Vol] 140 mmol/L Normal 136-145 [facility] Comment on above: Performed By: #### B FPR, GLUBF, BFCT, PROBF #### [address] [address] Total Protein 5.5 G/dL Low 5.7-8.2 [facility] Comment on above: Performed By: #### B FPR, GLUBF, BFCT, PROBF #### [address] [address] Urea nitrogen [Mass/Vol] 29.0 mg/dL High 8.0-22.0 [facility] Comment on above: Performed By: #### B FPR, GLUBF, BFCT, PROBF #### [address] [address] PHOSon 10-23-2024 Phosphate [Mass/Vol] 3.0 mg/dL Normal 2.4-5.1 [facility] Comment on above: Performed By: #### H BSAG, HBSAB #### [place] [address] .GFRon 10-22-2024 Estimated Glomerular Filtration Rate 39 ml/min/1.73sqm Normal [facility] Comment on above: Result Comment: Stages of Chronic Kidney Disease (CKD) Stage Description eGFR(ml/min/1.73 sq.m.) CKD 1 Normal kidney function or >=90 normal kindney function with possible kidney damage (ex. Proteinuria) CKD 2 Kidney damage with mild loss 60-89 of kidney function CKD 3a Mild to moderate loss of kidney 45-59 function CKD 3b Moderate to severe loss of 30-44 of kindey function CKD 4 Severe loss of kidney function 15-29 CKD 5 Kidney failure <15 Note: (go live 2024) the eGFR calculation was updated to the 2020 CKD-EPI creatinine equation without a race factor to calculate the eGFR results. Performed By: #### H LOIS, HBSAB #### [place] [address] .Manual Diffon 10-22-2024 Bands 1.0 % Normal 0.0-5.0 [facility] Comment on above: Performed By: #### A CHUCK SANON #### [place] [address] Basophil %, Manual 0.0 % Normal 0.0-2.5 [facility] Comment on above: Performed By: #### A MICK SANONGEL #### [place] [address] Basophil, Abs Manual 0.0 10 3/mcL Normal 0.0-0.3 [facility] Comment on above: Performed By: #### A TALITA ABSGEL #### [place] [address] Eosinophil %, Manual 0.0 % Normal 0.0-6.0 [facility] Comment on above: Performed By: #### A CHUCK SANON #### [place] [address] Eosinophil, Abs Manual 0.0 10 3/mcL Normal 0.0-0.7 [facility] Comment on above: Performed By: #### A TALITA ABSGEL #### [address] [address] Lymphocyte %, Manual 31.0 % Normal 20.0-40.0 [facility] Comment on above: Performed By: #### A TALITA ABSGEL #### [address] [address] Lymphocyte, Abs Manual 1.7 10 3/mcL Normal 0.9-4.3 [facility] Comment on above: Performed By: #### A TALITA ABSGEL #### [address] [address] Monocyte %, Manual 11.0 % Normal 2.0-13.0 [facility] Comment on above: Performed By: #### A TALITA ABSGEL #### [address] [address] Monocyte, Abs Manual 0.6 10 3/mcL Normal 0.1-1.4 [facility] Comment on above: Performed By: #### A TALITA ABSGEL #### [address] [address] Neutrophil %, Manual 57.0 % Normal 50.0-75.0 [facility] Comment on above: Performed By: #### A TALITA ABSGEL #### [address] [address] Neutrophil, Abs Manual 3.1 10 3/mcL Normal 2.3-8.1 [facility] Comment on above: Performed By: #### A TALITA ABSMARJAN #### [address] [address] Nucleated RBC 0.0 /100 WBC Normal [facility] Comment on above: Performed By: #### A MICK SANONGEL #### [address] [address] .Morphon 10-22-2024 Basophilic stippling LM Ql (Bld) 1+ Normal [facility] Comment on above: Performed By: #### A CHUCK SANON #### [address] [address] Platelet Clumps Few Normal [facility] Comment on above: Performed By: #### A CHUCK SANON #### [address] [address] Platelet Estimate Normal Normal [facility] Comment on above: Performed By: #### A CHUCK SANON #### [address] [address] Polychrom 1+ Normal [facility] Comment on above: Performed By: #### A CHUCK SANON #### [address] [address] CBCon 10-22-2024 Hematocrit (Bld) [Volume fraction] 27.3 % Low 34.0-46.0 [facility] Comment on above: Result Comment: Refe rence range changed due to change in patient's sex at 10:19:37. Normal Low changed from 40.0 to 34.0. Normal High changed from 52.0 to 46.0. Result flag not changed. Performed By: #### A CHUCK SANON #### [address] [address] Hgb 9.2 G/dL Low 12.0-16.0 [facility] Comment on above: Result Comment: Refe rence range changed due to change in patient's sex at 10:19:37. Normal Low changed from 13.0 to 12.0. Normal High changed from 17.5 to 16.0. Result flag not changed. Performed By: #### A CHUCK SANON #### [address] [address] MCV (RBC) [Entitic vol] 90.3 fL Normal 80.0-99.0 [facility] Comment on above: Result Comment: Refe rence range changed due to change in patient's sex at 10:19:37. Normal Low changed from 81.0 to 80.0. Normal High changed from 100.0 to 99.0. Result flag not changed. Performed By: #### A CHUCK SANON #### [address] [address] Platelet mean volume (Bld) [Entitic vol] 7.4 fL Normal 6.6-10.5 [facility] Comment on above: Result Comment: Refe rence range changed due to change in patient's sex at 10:19:37. Normal Low changed from 6.4 to 6.6. Result flag not changed. Performed By: #### A CHUCK SANON #### [address] [address] RBC 3.03 10 6/mcL Low 4.10-5.30 [facility] Comment on above: Result Comment: Refe rence range changed due to change in patient's sex at 10:19:37. Normal Low changed from 4.50 to 4.10. Normal High changed from 6.00 to 5.30. Result flag not changed. Performed By: #### A CHUCK SANON #### [address] [address] Erythrocyte distribution width (RBC) [Ratio] 16.2 % High 11.5-15.5 [facility] Comment on above: Performed By: #### A CHUCK SANON #### [address] [address] MCH (RBC) [Entitic mass] 30.4 pg Normal 27.0-33.0 [facility] Comment on above: Performed By: #### A CHUCK SANON #### [address] [address] MCHC 33.6 G/dL Normal 32.0-36.0 [facility] Comment on above: Performed By: #### A CHUCK SANON #### [address] [address] Platelet 421 10 3/mcL Normal 150-450 [facility] Comment on above: Performed By: #### CHUCK YOUNGBLOOD #### [address] [address] WBC 5.4 10 3/mcL Normal 4.5-10.8 [facility] Comment on above: Performed By: #### CHUCK YOUNGBLOOD #### [address] [address] CMPon 10-22-2024 ALT [Catalytic activity/Vol] 28 U/L Normal 10-49 [facility] Comment on above: Result Comment: Refe rence range changed due to change in patient's sex at 10:19:37. Normal Low changed from 12 to 10. Normal High changed from 55 to 49. Result flag not changed. Performed By: #### H BSAG, HBSAB #### [place] [id number] Creatinine [Mass/Vol] 1.84 mg/dL High 0.50-1.20 [facility] Comment on above: Result Comment: Test ing performed on [email or web address] analyzer using enzymatic creatinine methodology. Reference range changed due to change in patient's sex at 10:19:37. Normal Low changed from 0.60 to 0.50. Normal High changed from 1.40 to 1.20. Result flag not changed. Performed By: #### H BSAG, HBSAB #### [place] [id number] Albumin Level 2.4 G/dL Low 3.2-4.8 [facility] Comment on above: Performed By: #### H BSAG, HBSAB #### [place] [id number] Albumin/Globulin [Mass ratio] 0.8 {ratio} Low 0.9-1.6 [facility] Comment on above: Performed By: #### H BSAG, HBSAB #### [address] [address] ALP [Catalytic activity/Vol] 145 U/L High 38-126 [facility] Comment on above: Performed By: #### H BSAG, HBSAB #### [place] [id number] AST [Catalytic activity/Vol] 40 U/L High 8-34 [facility] Comment on above: Performed By: #### H BSAG, HBSAB #### [place] [id number] Bili Total 1.10 mg/dL Normal 0.20-1.20 [facility] Comment on above: Result Comment: Use of this assay is not recommended for patients undergoing treatment with eltrombopag due to the potential for falsely elevated results. Performed By: #### H BSAG, HBSAB #### [place] [id number] BUN/Creatinine Ratio 7.6 ratio Low 10.0-22.0 [facility] Comment on above: Performed By: #### H BSAG, HBSAB #### [place] [id number] Calcium [Mass/Vol] 8.7 mg/dL Normal 8.7-10.4 [facility] Comment on above: Performed By: #### H BSAG, HBSAB #### [place] [id number] Chloride [Moles/Vol] 100 mmol/L Normal 98-110 [facility] Comment on above: Performed By: #### H BSAG, HBSAB #### [place] [phone] CO2 [Moles/Vol] 29 mmol/L Normal 22-32 [facility] Comment on above: Performed By: #### H BSAG, HBSAB #### [place] [id number] Electrolyte Balance 12.0 mEq/L Normal 4.0-15.0 [facility] Comment on above: Performed By: #### H BSAG, HBSAB #### [place] [id number] Globulin 3.2 G/dL Normal 2.5-4.2 [facility] Comment on above: Performed By: #### H BSAG, HBSAB #### [place] [phone] Glucose [Mass/Vol] 92 mg/dL Normal 82-115 [facility] Comment on above: Performed By: #### H BSAG, HBSAB #### [place] [phone] Potassium [Moles/Vol] 4.0 mmol/L Normal 3.5-5.0 [facility] Comment on above: Performed By: #### H BSAG, HBSAB #### [address] [address] Sodium [Moles/Vol] 141 mmol/L Normal 136-145 [facility] Comment on above: Performed By: #### H BSAG, HBSAB #### [address] [address] Total Protein 5.6 G/dL Low 5.7-8.2 [facility] Comment on above: Performed By: #### H BSAG, HBSAB #### [address] [address] Urea nitrogen [Mass/Vol] 14.0 mg/dL Normal 8.0-22.0 [facility] Comment on above: Performed By: #### H BSAG, HBSAB #### [address] [address] MGon 10-22-2024 Magnesium [Mass/Vol] 1.9 mg/dL Normal 1.6-2.4 [facility] Comment on above: Performed By: #### H BSAG, HBSAB #### [address] [address] PHOSon 10-22-2024 Phosphate [Mass/Vol] 3.4 mg/dL Normal 2.4-5.1 [facility] Comment on above: Performed By: #### H BSAG, HBSAB #### [address] [address] XR CHEST 1 VIEWon 10-22-2024 XR CHEST 1 VIEW ORIGINAL EXAMINATION: ONE XRAY VIEW OF THE CHEST 10/22/2024 2:15 am COMPARISON: None. HISTORY: ORDERING SYSTEM PROVIDED HISTORY: Reason for Exam: new admit FINDINGS: Tracheostomy tube is in place. Enteric tube extends below the diaphragm out of field of view. Dual lumen dialysis catheter tube terminates at the expected location of the right atrium. Interstitial and alveolar haziness throughout the lungs bilaterally. Possible small bilateral effusions. No pneumothorax identified. Mild cardiomegaly suspected. IMPRESSION: Findings suggestive of congestion/edema versus developing infectious or inflammatory process. Interpreted by: Norberto Mercer MD Preliminary Report By: Norberto Mercer MD Electronically signed By Norberto Mercer MD Dictated Date: 10/22/2024 2:47:28 AM Prelim Date: 10/22/2024 2:47:56 AM Sign Date: 10/22/2024 2:47:56 AM Ordering Provider: [facility] XR ENTERIC TUBE PLACEMENTon 10-22-2024 XR ENTERIC TUBE PLACEMENT ORIGINAL EXAMINATION: ONE SUPINE XRAY VIEW(S) OF THE ABDOMEN 10/22/2024 5:02 am COMPARISON: None. HISTORY: ORDERING SYSTEM PROVIDED HISTORY: Reason for Exam: Corpak placement IMPRESSION: Enteric tube is felt to be positioned within the duodenum. Interpreted by: Norberto Mercer MD Preliminary Report By: Norberto Mercer MD Electronically signed By Norberto Mercer MD Dictated Date: 10/22/2024 5:06:08 AM Prelim Date: 10/22/2024 5:08:34 AM Sign Date: 10/22/2024 5:08:34 AM Ordering Provider: [facility] CBC W Auto Differential pane l (Bld)on 10-21-2024 Basophils (Bld) [#/Vol] 0.03 x10*3/uL Normal 0.00-0.10 [facility] Comment on above: Performed By: #### 5 7021-8 ####AYDEE CAMILOMOTZER L ([id number])[facility] ([facility])[id number] [place] [address] Basophils/100 WBC (Bld) 0.5 % Normal 0.0-2.0 [facility] Comment on above: Performed By: #### 5 7021-8 ####AYDEE SCHMOTZER L ([id number])[facility] ([facility])[address] [place] [address] Eosinophils (Bld) [#/Vol] 0.02 x10*3/uL Normal 0.00-0.70 [facility] Comment on above: Performed By: #### 5 7021-8 ####AYDEE SCHMOTZER L ([id number])[facility] ([facility])[address] [place] [address] Eosinophils/100 WBC (Bld) 0.3 % Normal 0.0-6.0 [facility] Comment on above: Performed By: #### 5 7021-8 ####AYDEE Bruce ([id number])[facility] ([facility])[id number] [place] [address] Erythrocyte distribution width (RBC) [Ratio] 16.9 % High 11.5-14.5 [facility] Comment on above: Performed By: #### 5 7021-8 ####AYDEE Bruce ([id number])[facility] ([facility])[id number] [place] [address] Hematocrit (Bld) [Volume fraction] 29.2 % Low 36.0-46.0 [facility] Comment on above: Performed By: #### 5 7021-8 ####AYDEE Bruce ([id number])[facility] ([facility])[id number] [place] [address] Hemoglobin (Bld) [Mass/Vol] 8.6 g/dL Low 12.0-16.0 [facility] Comment on above: Performed By: #### 5 7021-8 ####AYDEE Bruce ([id number])[facility] ([facility])[id number] [place] [address] Immature granulocytes (Bld) [#/Vol] 0.04 x10*3/uL Normal 0.00-0.70 [facility] Comment on above: Performed By: #### 5 7021-8 ####AYDEE Bruce ([id number])[facility] ([facility])[address] [place] [address] Immature granulocytes/100 WBC (Bld) 0.7 % Normal 0.0-0.9 [facility] Comment on above: Result Comment: Doris ture Granulocyte Count (IG) includes promyelocytes, myelocytes and metamyelocytes but does not include bands. Percent differential counts (%) should be interpreted in the context of the absolute cell counts (cells/UL). Performed By: #### 5 7021-8 ####AYDEE Bruce ([id number])[facility] ([facility])[address] [place] [address] Lymphocytes (Bld) [#/Vol] 1.10 x10*3/uL Low 1.20-4.80 [facility] Comment on above: Performed By: #### 5 7021-8 ####AYDEE Bruce ([id number])[facility] ([facility])[address] [place] [address] Lymphocytes/100 WBC (Bld) 18.2 % Normal 13.0-44.0 [facility] Comment on above: Performed By: #### 5 7021-8 ####AYDEE Bruce ([id number])[facility] ([facility])[address] [place] [address] MCH (RBC) [Entitic mass] 29.2 pg Normal 26.0-34.0 [facility] Comment on above: Performed By: #### 5 7021-8 ####AYDEE Bruce ([id number])[facility] ([facility])[address] [place] [address] MCHC (RBC) [Mass/Vol] 29.5 g/dL Low 32.0-36.0 [facility] Comment on above: Performed By: #### 5 7021-8 ####AYDEE Bruce ([id number])[facility] ([facility])[address] [place] [address] MCV (RBC) [Entitic vol] 99 fL Normal 80-100 [facility] Comment on above: Performed By: #### 5 7021-8 ####AYDEE Bruce ([id number])[facility] ([facility])[address] [place] [address] Monocytes (Bld) [#/Vol] 1.15 x10*3/uL High 0.10-1.00 [facility] Comment on above: Performed By: #### 5 7021-8 ####AYDEE Bruce (69332)[facility] ([facility])[address] [place] [address] Monocytes/100 WBC (Bld) 19.0 % Normal 2.0-10.0 [facility] Comment on above: Performed By: #### 5 7021-8 ####AYDEE Bruce ([id number])[facility] ([facility])[address] [place] [address] Neutrophils (Bld) [#/Vol] 3.72 x10*3/uL Normal 1.20-7.70 [facility] Comment on above: Result Comment: Perc ent differential counts (%) should be interpreted in the context of the absolute cell counts (cells/uL). Performed By: #### 5 7021-8 ####AYDEE Bruce ([id number])[facility] ([facility])[address] [place] [address] Neutrophils/100 WBC (Bld) 61.3 % Normal 40.0-80.0 [facility] Comment on above: Performed By: #### 5 7021-8 ####AYDEE Bruce ([id number])[facility] ([facility])[address] [place] [address] Nucleated RBC/100 WBC (Bld) [Ratio] 0.0 /100 WBCs Normal 0.0-0.0 [facility] Comment on above: Performed By: #### 5 7021-8 ####AYDEE Bruce ([id number])[facility] ([facility])[address] [place] [address] Platelets (Bld) [#/Vol] 418 x10*3/uL Normal 150-450 [facility] Comment on above: Performed By: #### 5 7021-8 ####AYDEE Bruce ([id number])[facility] ([facility])[address] [place] [address] RBC (Bld) [#/Vol] 2.95 x10*6/uL Low 4.00-5.20 [facility] Comment on above: Performed By: #### 5 7021-8 ####AYDEE Bruce ([id number])[facility] ([facility])[address] [place] [address] WBC (Bld) [#/Vol] 6.1 x10*3/uL Normal 4.4-11.3 [facility] Comment on above: Performed By: #### 5 7021-8 ####AYDEE Bruce ([id number])[facility] ([facility])[address] [place] [address] Glucose Test strip manual (B ld) [Mass/Vol]on 10-21-2024 Glucose [Mass/Vol] 101 mg/dL High 74-99 [facility] Comment on above: Performed By: #### 2 341-6 ####AYDEE Bruce ([id number])[facility] ([facility])[address] [place] [address] Glucose [Mass/Vol] 121 mg/dL High 74-99 [facility] Comment on above: Performed By: #### 2 341-6 ####AYDEE Bruce ([id number])[facility] ([facility])[address] [place] [address] Magnesiumon 10-21-2024 Magnesium [Mass/Vol] 2.16 mg/dL Normal 1.60-2.40 [facility] Comment on above: Performed By: #### 1 9123-9 ####AYDEE Bruce ([id number])[facility] ([facility])[address] [place] [address] Renal function 2000 panelon 10-21-2024 Albumin BCP dye [Mass/Vol] 2.9 g/dL Low 3.4-5.0 [facility] Comment on above: Performed By: #### 2 4362-6 ####AYDEE Bruce ([id number])[facility] ([facility])[address] [place] [address] Anion gap [Moles/Vol] 18 mmol/L Normal 10-20 [facility] Comment on above: Performed By: #### 2 4362-6 ####AYDEE Bruce (60410)[facility] ([facility])[address]365 [place] [address] Calcium [Mass/Vol] 8.5 mg/dL Low 8.6-10.6 [facility] Comment on above: Performed By: #### 2 4362-6 ####AYDEE Bruce ([id number])[facility] ([facility])[address] [place] [address] Chloride [Moles/Vol] 96 mmol/L Low 98-107 [facility] Comment on above: Performed By: #### 2 4362-6 ####AYDEE Bruce ([id number])[facility] ([facility])[address]25 [place] [address] CO2 [Moles/Vol] 24 mmol/L Normal 21-32 [facility] Comment on above: Performed By: #### 2 4362-6 ####AYDEE Bruce ([id number])[facility] ([facility])[address]88 [place] [address] Creatinine [Mass/Vol] 3.46 mg/dL High 0.50-1.05 [facility] Comment on above: Performed By: #### 2 4362-6 ####AYDEE Bruce (56552)[facility] ([facility])[address]382 [place] [address] Glomerular filtration rate 14 mL/min/1.73m*2 Low >60 [facility] Comment on above: Result Comment: Calc ulations of estimated GFR are performed using the 2020 CKD-EPI Study Refit equation without the race variable for the IDMS-Traceable creatinine methods.https://jasn.asnjournals.org/content/early/ N.0179523621 Performed By: #### 2 4362-6 ####AYDEE Bruce ([id number])[facility] ([facility])[address] [place] [address] Glucose [Mass/Vol] 107 mg/dL High 74-99 [facility] Comment on above: Performed By: #### 2 4362-6 ####AYDEE Bruce ([id number])[facility] ([facility])[address]95 [place] [address] Phosphate [Mass/Vol] 6.0 mg/dL High 2.5-4.9 [facility] Comment on above: Performed By: #### 2 4362-6 ####AYDEE Bruce ([id number])[facility] ([facility])[address]98 [place] [address] Potassium [Moles/Vol] 3.8 mmol/L Normal 3.5-5.3 [facility] Comment on above: Performed By: #### 2 4362-6 ####AYDEE Bruce (00011)[facility] ([facility])[address]24 [place] [address] Sodium [Moles/Vol] 134 mmol/L Low 136-145 [facility] Comment on above: Performed By: #### 2 4362-6 ####AYDEE Bruce ([id number])[facility] ([facility])[address]325 [place] [address] Urea nitrogen [Mass/Vol] 33 mg/dL High 6-23 [facility] Comment on above: Performed By: #### 2 4362-6 ####AYDEE Bruce ([id number])[facility] ([facility])[address]99 [place] [address] CBC W Auto Differential pane l (Bld)on 10-20-2024 Basophils (Bld) [#/Vol] 0.06 x10*3/uL Normal 0.00-0.10 [facility] Comment on above: Performed By: #### 5 7021-8 ####AYDEE Bruce ([id number])[facility] ([facility])[address]41 [place] [address] Basophils/100 WBC (Bld) 1.0 % Normal 0.0-2.0 [facility] Comment on above: Performed By: #### 5 7021-8 ####AYDEE Bruce ([id number])[facility] ([facility])[address] [place] [address] Eosinophils (Bld) [#/Vol] 0.09 x10*3/uL Normal 0.00-0.70 [facility] Comment on above: Performed By: #### 5 7021-8 ####AYDEE Bruce ([id number])[facility] ([facility])[address] [place] [address] Eosinophils/100 WBC (Bld) 1.5 % Normal 0.0-6.0 [facility] Comment on above: Performed By: #### 5 7021-8 ####AYDEE Bruce ([id number])[facility] ([facility])[address] [place] [address] Erythrocyte distribution width (RBC) [Ratio] 17.0 % High 11.5-14.5 [facility] Comment on above: Performed By: #### 5 7021-8 ####AYDEE Bruce ([id number])[facility] ([facility])[address] [place] [address] Hematocrit (Bld) [Volume fraction] 27.4 % Low 36.0-46.0 [facility] Comment on above: Performed By: #### 5 7021-8 ####AYDEE Bruce ([id number])[facility] ([facility])[address] [place] [address] Hemoglobin (Bld) [Mass/Vol] 9.0 g/dL Low 12.0-16.0 [facility] Comment on above: Performed By: #### 5 7021-8 ####AYDEE Bruce ([id number])[facility] ([facility])[address] [place] [address] Immature granulocytes (Bld) [#/Vol] 0.06 x10*3/uL Normal 0.00-0.70 [facility] Comment on above: Performed By: #### 5 7021-8 ####AYDEE Bruce ([id number])[facility] ([facility])[address]82 [place] [address] Immature granulocytes/100 WBC (Bld) 1.0 % High 0.0-0.9 [facility] Comment on above: Result Comment: Doris ture Granulocyte Count (IG) includes promyelocytes, myelocytes and metamyelocytes but does not include bands. Percent differential counts (%) should be interpreted in the context of the absolute cell counts (cells/UL). Performed By: #### 5 7021-8 ####AYDEE Bruce ([id number])[facility] ([facility])[address]602 [place] [address] Lymphocytes (Bld) [#/Vol] 1.75 x10*3/uL Normal 1.20-4.80 [facility] Comment on above: Performed By: #### 5 7021-8 ####AYDEE Bruce (88990)[facility] ([facility])[address]91 [place] [address] Lymphocytes/100 WBC (Bld) 29.5 % Normal 13.0-44.0 [facility] Comment on above: Performed By: #### 5 7021-8 ####AYDEE Bruce ([id number])[facility] ([facility])[address]00 [place] [address] MCH (RBC) [Entitic mass] 29.7 pg Normal 26.0-34.0 [facility] Comment on above: Performed By: #### 5 7021-8 ####AYDEE Bruce ([id number])[facility] ([facility])[address]182 [place] [address] MCHC (RBC) [Mass/Vol] 32.8 g/dL Normal 32.0-36.0 [facility] Comment on above: Performed By: #### 5 7021-8 ####AYDEE Bruce (49057)[facility] ([facility])[address]365 [place] [address] MCV (RBC) [Entitic vol] 90 fL Normal 80-100 [facility] Comment on above: Performed By: #### 5 7021-8 ####AYDEE Bruce ([id number])[facility] ([facility])[address]19 [place] [address] Monocytes (Bld) [#/Vol] 1.15 x10*3/uL High 0.10-1.00 [facility] Comment on above: Performed By: #### 5 7021-8 ####AYDEE Bruce ([id number])[facility] ([facility])[address]20 [place] [address] Monocytes/100 WBC (Bld) 19.4 % Normal 2.0-10.0 [facility] Comment on above: Performed By: #### 5 7021-8 ####AYDEE Bruce (51192)[facility] ([facility])[address]990 [place] [address] Neutrophils (Bld) [#/Vol] 2.83 x10*3/uL Normal 1.20-7.70 [facility] Comment on above: Result Comment: Perc ent differential counts (%) should be interpreted in the context of the absolute cell counts (cells/uL). Performed By: #### 5 7021-8 ####AYDEE Bruce ([id number])[facility] ([facility])[address]019 [place] [address] Neutrophils/100 WBC (Bld) 47.6 % Normal 40.0-80.0 [facility] Comment on above: Performed By: #### 5 7021-8 ####AYDEE Bruce ([id number])[facility] ([facility])[address]405 [place] [address] Nucleated RBC/100 WBC (Bld) [Ratio] 0.0 /100 WBCs Normal 0.0-0.0 [facility] Comment on above: Performed By: #### 5 7021-8 ####AYDEE Bruce (59089)[facility] ([facility])[address]59 [place] [address] Platelets (Bld) [#/Vol] 421 x10*3/uL Normal 150-450 [facility] Comment on above: Performed By: #### 5 7021-8 ####AYDEE Bruce ([id number])[facility] ([facility])[address]128 [place] [address] RBC (Bld) [#/Vol] 3.03 x10*6/uL Low 4.00-5.20 [facility] Comment on above: Performed By: #### 5 7021-8 ####AYDEE Bruce ([id number])[facility] ([facility])[address]755 [place] [address] WBC (Bld) [#/Vol] 5.9 x10*3/uL Normal 4.4-11.3 [facility] Comment on above: Performed By: #### 5 7021-8 ####AYDEE Bruce ([id number])[facility] ([facility])[address]16 [place] [address] Glucose Test strip manual (B ld) [Mass/Vol]on 10-20-2024 Glucose [Mass/Vol] 89 mg/dL Normal 74-99 [facility] Comment on above: Performed By: #### 2 341-6 ####AYDEE Bruce ([id number])[facility] ([facility])[address]99 [place] [address] Glucose [Mass/Vol] 74 mg/dL Normal 74-99 [facility] Comment on above: Performed By: #### 2 341-6 ####AYDEE Bruce ([id number])[facility] ([facility])[address]27 [place] [address] Glucose [Mass/Vol] 91 mg/dL Normal 74-99 [facility] Comment on above: Performed By: #### 2 341-6 ####AYDEE Bruce ([id number])[facility] ([facility])[address]053 [place] [address] Heparin.unfractionatedon Heparin unfractionated Chromogenic method Qn (PPP) 0.5 IU/mL Normal See Comment Below for Therapeutic Ranges [facility] Comment on above: Order Comment: Obtai n 4 hours after any Heparin dosage change. Nursing to release order.The therapeutic reference range for UFH may be either 0.3-0.6 IU/mL or 0.3-0.7 IU/mL based on the clinical setting for anticoagulant therapy and the associated nomogram used. For Heparin dosing guidelines based on clinical scenario and Heparin Assay results, please refer to local Pharmacy and the [facility] Guidelines for Anticoagulation Therapy available on the [facility] intranet at: [email or web address] Performed By: #### 3 274-8 ####AYDEE Bruce ([id number])[facility] ([facility])[address] [place] [address] Magnesiumon 10-20-2024 Magnesium [Mass/Vol] 2.18 mg/dL Normal 1.60-2.40 [facility] Comment on above: Performed By: #### 1 9123-9 ####AYDEE Bruce ([id number])[facility] ([facility])[address] [place] [address] Renal function 2000 panelon 10-20-2024 Albumin BCP dye [Mass/Vol] 2.9 g/dL Low 3.4-5.0 [facility] Comment on above: Performed By: #### 2 4362-6 ####AYDEE Bruce ([id number])[facility] ([facility])[id number] [place] [address] 56884 Anion gap [Moles/Vol] 17 mmol/L Normal 10-20 [facility] Comment on above: Performed By: #### 2 4362-6 ####AYDEE rBuce ([id number])[facility] ([facility])[id number] [place] [address] 13686 Calcium [Mass/Vol] 8.5 mg/dL Low 8.6-10.6 [facility] Comment on above: Performed By: #### 2 4362-6 ####AYDEE Bruce ([id number])[facility] ([facility])[address] [place] [address] Chloride [Moles/Vol] 97 mmol/L Low 98-107 [facility] Comment on above: Performed By: #### 2 4362-6 ####AYDEE Bruce ([id number])[facility] ([facility])[address] [place] [address] CO2 [Moles/Vol] 25 mmol/L Normal 21-32 [facility] Comment on above: Performed By: #### 2 4362-6 ####AYDEE Bruce ([id number])[facility] ([facility])[address] [place] [address] Creatinine [Mass/Vol] 2.48 mg/dL High 0.50-1.05 [facility] Comment on above: Performed By: #### 2 4362-6 ####AYDEE Bruce ([id number])[facility] ([facility])[address]1997 [place] [address] Glomerular filtration rate 21 mL/min/1.73m*2 Low >60 [facility] Comment on above: Result Comment: Calc ulations of estimated GFR are performed using the 2020 CKD-EPI Study Refit equation without the race variable for the IDMS-Traceable creatinine methods.https://jasn.asnjournals.org/content// N.9246472643 Performed By: #### 2 4362-6 ####AYDEE Bruce ([id number])[facility] ([facility])[address]359 [place] [address] Glucose [Mass/Vol] 92 mg/dL Normal 74-99 [facility] Comment on above: Performed By: #### 2 4362-6 ####AYDEE Bruce ([id number])[facility] ([facility])[address] [place] [address] Phosphate [Mass/Vol] 5.1 mg/dL High 2.5-4.9 [facility] Comment on above: Performed By: #### 2 4362-6 ####AYDEE Bruce (49731)[facility] ([facility])[address] [place] [address] Potassium [Moles/Vol] 3.8 mmol/L Normal 3.5-5.3 [facility] Comment on above: Performed By: #### 2 4362-6 ####AYDEE Bruce ([id number])[facility] ([facility])[address] [place] [address] Sodium [Moles/Vol] 135 mmol/L Low 136-145 [facility] Comment on above: Performed By: #### 2 436-6 ####AYDEE Bruce ([id number])[facility] ([facility])[address] [place] [address] Urea nitrogen [Mass/Vol] 22 mg/dL Normal 6-23 [facility] Comment on above: Performed By: #### 2 436-6 ####AYDEE Bruce ([id number])[facility] ([facility])[address]64 [place] [address] Blood type and Indirect anti body screen panel (Bld)on 10-19-2024 ABO group Nom (Bld) B Normal [facility] Comment on above: Performed By: #### 3 4532-2 ####AYDEE Bruce ([id number])[facility] ([facility])[address] [facility] [place] [address] Blood group antibody screen Ql Negative [facility] Comment on above: Performed By: #### 3 4532-2 ####AYDEE Bruce (32606)[facility] ([facility])[address] [facility] [place] [address] D Ag Ql (Bld) Positive [facility] Comment on above: Performed By: #### 3 4532-2 ####AYDEE Bruce ([id number])[facility] ([facility])[address]39 [facility] [place] [address] CBC W Auto Differential pane l (Bld)on 10-19-2024 Basophils (Bld) [#/Vol] 0.05 x10*3/uL Normal 0.00-0.10 [facility] Comment on above: Performed By: #### 5 7021-8 ####AYDEE Bruce ([id number])[facility] ([facility])[id number] [place] [address] Basophils/100 WBC (Bld) 0.9 % Normal 0.0-2.0 [facility] Comment on above: Performed By: #### 5 7021-8 ####AYDEE Bruce ([id number])[facility] ([facility])[address] [place] [address] Eosinophils (Bld) [#/Vol] 0.22 x10*3/uL Normal 0.00-0.70 [facility] Comment on above: Performed By: #### 5 7021-8 ####AYDEE Bruce ([id number])[facility] ([facility])[address] [place] [address] Eosinophils/100 WBC (Bld) 3.9 % Normal 0.0-6.0 [facility] Comment on above: Performed By: #### 5 7021-8 ####AYDEE Bruce ([id number])[facility] ([facility])[address] [place] [address] Erythrocyte distribution width (RBC) [Ratio] 16.5 % High 11.5-14.5 [facility] Comment on above: Performed By: #### 5 7021-8 ####AYDEE Bruce ([id number])[facility] ([facility])[address] [place] [address] Hematocrit (Bld) [Volume fraction] 26.7 % Low 36.0-46.0 [facility] Comment on above: Performed By: #### 5 7021-8 ####AYDEE Bruce ([id number])[facility] ([facility])[address] [place] [address] Hemoglobin (Bld) [Mass/Vol] 8.8 g/dL Low 12.0-16.0 [facility] Comment on above: Performed By: #### 5 7021-8 ####AYDEE Bruce (89960)[facility] ([facility])[address]703 [place] [address] Immature granulocytes (Bld) [#/Vol] 0.04 x10*3/uL Normal 0.00-0.70 [facility] Comment on above: Performed By: #### 5 7021-8 ####AYDEE Bruce (92691)[facility] ([facility])[address]184 [place] [address] Immature granulocytes/100 WBC (Bld) 0.7 % Normal 0.0-0.9 [facility] Comment on above: Result Comment: Doris ture Granulocyte Count (IG) includes promyelocytes, myelocytes and metamyelocytes but does not include bands. Percent differential counts (%) should be interpreted in the context of the absolute cell counts (cells/UL). Performed By: #### 5 7021-8 ####AYDEE Bruce (49452)[facility] ([facility])[address]777 [place] [address] Lymphocytes (Bld) [#/Vol] 1.33 x10*3/uL Normal 1.20-4.80 [facility] Comment on above: Performed By: #### 5 7021-8 ####AYDEE Bruce (47422)[facility] ([facility])[address]65 [place] [address] Lymphocytes/100 WBC (Bld) 23.8 % Normal 13.0-44.0 [facility] Comment on above: Performed By: #### 5 7021-8 ####AYDEE Bruce ([id number])[facility] ([facility])[address]76 [place] [address] MCH (RBC) [Entitic mass] 29.4 pg Normal 26.0-34.0 [facility] Comment on above: Performed By: #### 5 7021-8 ####AYDEE Bruce (84956)[facility] ([facility])[address]2776 [place] [address] MCHC (RBC) [Mass/Vol] 33.0 g/dL Normal 32.0-36.0 [facility] Comment on above: Performed By: #### 5 7021-8 ####AYDEE Bruce (39943)[facility] ([facility])[address]448 [place] [address] MCV (RBC) [Entitic vol] 89 fL Normal 80-100 [facility] Comment on above: Performed By: #### 5 7021-8 ####AYDEE Bruce ([id number])[facility] ([facility])[address]853 [place] [address] Monocytes (Bld) [#/Vol] 1.00 x10*3/uL Normal 0.10-1.00 [facility] Comment on above: Performed By: #### 5 7021-8 ####AYDEE Bruce (42883)[facility] ([facility])[address]3728 [place] [address] Monocytes/100 WBC (Bld) 17.9 % Normal 2.0-10.0 [facility] Comment on above: Performed By: #### 5 7021-8 ####AYDEE Bruce (89109)[facility] ([facility])[address]38 [place] [address] Neutrophils (Bld) [#/Vol] 2.94 x10*3/uL Normal 1.20-7.70 [facility] Comment on above: Result Comment: Perc ent differential counts (%) should be interpreted in the context of the absolute cell counts (cells/uL). Performed By: #### 5 7021-8 ####AYDEE Bruce (14489)[facility] ([facility])[address]72 [place] [address] Neutrophils/100 WBC (Bld) 52.8 % Normal 40.0-80.0 [facility] Comment on above: Performed By: #### 5 7021-8 ####AYDEE Bruce (20834)[facility] ([facility])[address]014 [place] [address] Nucleated RBC/100 WBC (Bld) [Ratio] 0.0 /100 WBCs Normal 0.0-0.0 [facility] Comment on above: Performed By: #### 5 7021-8 ####AYDEE BAZZI L (80656)[facility] ([facility])[address]046 [place] [address] Platelets (Bld) [#/Vol] 358 x10*3/uL Normal 150-450 [facility] Comment on above: Performed By: #### 5 7021-8 ####AYDEE Bruce (94568)[facility] ([facility])[address] [place] [address] RBC (Bld) [#/Vol] 2.99 x10*6/uL Low 4.00-5.20 [facility] Comment on above: Performed By: #### 5 7021-8 ####AYDEE BAZZI L (00640)[facility] ([facility])[address]396 [place] [address] WBC (Bld) [#/Vol] 5.6 x10*3/uL Normal 4.4-11.3 [facility] Comment on above: Performed By: #### 5 7021-8 ####AYDEE Bruce ([id number])[facility] ([facility])[address]13 [place] [address] Glucose Test strip manual (B ld) [Mass/Vol]on 10-19-2024 Glucose [Mass/Vol] 89 mg/dL Normal 74-99 [facility] Comment on above: Performed By: #### 2 341-6 ####AYDEE BAZZI L (68335)[facility] ([facility])[address]702 [place] [address] Glucose [Mass/Vol] 74 mg/dL Normal 74-99 [facility] Comment on above: Performed By: #### 2 341-6 ####AYDEE Bruce ([id number])[facility] ([facility])[address]95 [place] [address] Glucose [Mass/Vol] 84 mg/dL Normal 74-99 [facility] Comment on above: Performed By: #### 2 341-6 ####AYDEE Bruce (57856)[facility] ([facility])[address]43 [place] [address] Glucose [Mass/Vol] 90 mg/dL Normal 74-99 [facility] Comment on above: Performed By: #### 2 341-6 ####AYDEE Bruce (09842)[facility] ([facility])[address]15 [place] [address] Heparin.unfractionatedon Heparin unfractionated Chromogenic method Qn (PPP) 0.5 IU/mL Normal See Comment Below for Therapeutic Ranges [facility] Comment on above: Order Comment: Obtai n 4 hours after any Heparin dosage change. Nursing to release order.The therapeutic reference range for UFH may be either 0.3-0.6 IU/mL or 0.3-0.7 IU/mL based on the clinical setting for anticoagulant therapy and the associated nomogram used. For Heparin dosing guidelines based on clinical scenario and Heparin Assay results, please refer to local Pharmacy and the [facility] Guidelines for Anticoagulation Therapy available on the [facility] intranet at: [email or web address] Performed By: #### 3 274-8 ####AYDEE Bruce ([id number])[facility] ([facility])[address]251 [place] [address] Magnesiumon 10-19-2024 Magnesium [Mass/Vol] 2.36 mg/dL Normal 1.60-2.40 [facility] Comment on above: Performed By: #### 1 9123-9 ####AYDEE Bruce (19454)[facility] ([facility])[address] [place] [address] Renal function 2000 panelon 10-19-2024 Albumin BCP dye [Mass/Vol] 2.8 g/dL Low 3.4-5.0 [facility] Comment on above: Performed By: #### 2 4362-6 ####AYDEE Bruce (58384)[facility] ([facility])[address]402 [place] [address] Anion gap [Moles/Vol] 19 mmol/L Normal 10-20 [facility] Comment on above: Performed By: #### 2 4362-6 ####AYDEE Burce (86893)[facility] ([facility])[address]25 [place] [address] Calcium [Mass/Vol] 8.5 mg/dL Low 8.6-10.6 [facility] Comment on above: Performed By: #### 2 4362-6 ####AYDEE Bruce ([id number])[facility] ([facility])[address]094 [place] [address] Chloride [Moles/Vol] 89 mmol/L Low 98-107 [facility] Comment on above: Performed By: #### 2 4362-6 ####AYDEE Bruce ([id number])[facility] ([facility])[address]781 [place] [address] CO2 [Moles/Vol] 23 mmol/L Normal 21-32 [facility] Comment on above: Performed By: #### 2 4362-6 ####AYDEE Bruce (31593)[facility] ([facility])[address]002 [place] [address] Creatinine [Mass/Vol] 3.84 mg/dL High 0.50-1.05 [facility] Comment on above: Performed By: #### 2 4362-6 ####AYDEE Bruce (11750)[facility] ([facility])[address]472 [place] [address] Glomerular filtration rate 12 mL/min/1.73m*2 Low >60 [facility] Comment on above: Result Comment: Calc ulations of estimated GFR are performed using the 2020 CKD-EPI Study Refit equation without the race variable for the IDMS-Traceable creatinine methods.https://jasn.asnjournals.org/content/early/ N.1122053424 Performed By: #### 2 4362-6 ####AYDEE Bruce ([id number])[facility] ([facility])[address]362 [place] [address] Glucose [Mass/Vol] 85 mg/dL Normal 74-99 [facility] Comment on above: Performed By: #### 2 4362-6 ####AYDEE Bruce (94057)[facility] ([facility])[address]555 [place] [address] Phosphate [Mass/Vol] 7.8 mg/dL High 2.5-4.9 [facility] Comment on above: Result Comment: MILD HEMOLYSIS DETECTED. The result may be falsely elevated due to hemolysis or other interferents. Clinical correlation is recommended. Repeat testing may be considered. Performed By: #### 2 4362-6 ####AYDEE BAZZI L (14452)[facility] ([facility])[address]39 [place] [address] Potassium [Moles/Vol] 4.4 mmol/L Normal 3.5-5.3 [facility] Comment on above: Result Comment: MILD HEMOLYSIS DETECTED. The result may be falsely elevated due to hemolysis or other interferents. Clinical correlation is recommended. Repeat testing may be considered. Performed By: #### 2 4362-6 ####AYDEE CAMILOMOTZER L (77956)[facility] ([facility])[address] [place] [address] Sodium [Moles/Vol] 127 mmol/L Low 136-145 [facility] Comment on above: Performed By: #### 2 4362-6 ####AYDEE CAMILOMOTZLILIANA L (85111)[facility] ([facility])[address] [place] [address] Urea nitrogen [Mass/Vol] 47 mg/dL High 6-23 [facility] Comment on above: Performed By: #### 2 4362-6 ####AYDEE Bruce ([id number])[facility] ([facility])[address]12 [place] [address] CBC W Auto Differential pane l (Bld)on 10-18-2024 Basophils (Bld) [#/Vol] 0.07 x10*3/uL Normal 0.00-0.10 [facility] Comment on above: Performed By: #### 5 7021-8 ####AYDEE Bruce (28760)[facility] ([facility])[address]11 [place] [address] Basophils/100 WBC (Bld) 1.3 % Normal 0.0-2.0 [facility] Comment on above: Performed By: #### 5 7021-8 ####AYDEE Bruce (18763)[facility] ([facility])10775 [place] [address] Eosinophils (Bld) [#/Vol] 0.38 x10*3/uL Normal 0.00-0.70 [facility] Comment on above: Performed By: #### 5 7021-8 ####AYDEE Bruce ([id number])[facility] ([facility])[address]04 [place] [address] Eosinophils/100 WBC (Bld) 7.3 % Normal 0.0-6.0 [facility] Comment on above: Performed By: #### 5 7021-8 ####AYDEE Bruce ([id number])[facility] ([facility])[address]28 [place] [address] Erythrocyte distribution width (RBC) [Ratio] 16.6 % High 11.5-14.5 [facility] Comment on above: Performed By: #### 5 7021-8 ####AYDEE Bruce (32178)[facility] ([facility])[address]50 [place] [address] Hematocrit (Bld) [Volume fraction] 25.5 % Low 36.0-46.0 [facility] Comment on above: Performed By: #### 5 7021-8 ####AYDEE VALDEZTZER L (48396)[facility] ([facility])[address]24 [place] [address] Hemoglobin (Bld) [Mass/Vol] 8.8 g/dL Low 12.0-16.0 [facility] Comment on above: Performed By: #### 5 7021-8 ####AYDEE CAMILOMOTZER L ([id number])[facility] ([facility])[address]99 [place] [address] Immature granulocytes (Bld) [#/Vol] 0.06 x10*3/uL Normal 0.00-0.70 [facility] Comment on above: Performed By: #### 5 7021-8 ####AYDEE VALDEZTZLILIANA L (49401)[facility] ([facility])[address]173 [place] [address] Immature granulocytes/100 WBC (Bld) 1.2 % High 0.0-0.9 [facility] Comment on above: Result Comment: Doris ture Granulocyte Count (IG) includes promyelocytes, myelocytes and metamyelocytes but does not include bands. Percent differential counts (%) should be interpreted in the context of the absolute cell counts (cells/UL). Performed By: #### 5 7021-8 ####AYDEE BAZZI L (29236)[facility] ([facility])38751 [place] [address] Lymphocytes (Bld) [#/Vol] 1.28 x10*3/uL Normal 1.20-4.80 [facility] Comment on above: Performed By: #### 5 7021-8 ####AYDEE VALDEZTZER L (86860)[facility] ([facility])[address]21 [place] [address] Lymphocytes/100 WBC (Bld) 24.7 % Normal 13.0-44.0 [facility] Comment on above: Performed By: #### 5 7021-8 ####AYDEE CAMILOMOTZER L (56298)[facility] ([facility])19273 [place] [address] MCH (RBC) [Entitic mass] 30.2 pg Normal 26.0-34.0 [facility] Comment on above: Performed By: #### 5 7021-8 ####AYDEE Bruce (90429)[facility] ([facility])[address]004 [place] [address] MCHC (RBC) [Mass/Vol] 34.5 g/dL Normal 32.0-36.0 [facility] Comment on above: Performed By: #### 5 7021-8 ####AYDEE Bruce (19558)[facility] ([facility])48716 [place] [address] MCV (RBC) [Entitic vol] 88 fL Normal 80-100 [facility] Comment on above: Performed By: #### 5 7021-8 ####AYDEE Bruce (58026)[facility] ([facility])54158 [place] [address] Monocytes (Bld) [#/Vol] 1.18 x10*3/uL High 0.10-1.00 [facility] Comment on above: Performed By: #### 5 7021-8 ####AYDEE Bruce (98939)[facility] ([facility])[address]00 [place] [address] Monocytes/100 WBC (Bld) 22.7 % Normal 2.0-10.0 [facility] Comment on above: Performed By: #### 5 7021-8 ####AYDEE CAMILOMOJOSE E L (03462)[facility] ([facility])[address]01 [place] [address] Neutrophils (Bld) [#/Vol] 2.22 x10*3/uL Normal 1.20-7.70 [facility] Comment on above: Result Comment: Perc ent differential counts (%) should be interpreted in the context of the absolute cell counts (cells/uL). Performed By: #### 5 7021-8 ####AYDEE Bruce ([id number])[facility] ([facility])92122 [place] [address] Neutrophils/100 WBC (Bld) 42.8 % Normal 40.0-80.0 [facility] Comment on above: Performed By: #### 5 7021-8 ####AYDEE Bruce (83139)[facility] ([facility])[address] [place] [address] Nucleated RBC/100 WBC (Bld) [Ratio] 0.0 /100 WBCs Normal 0.0-0.0 [facility] Comment on above: Performed By: #### 5 7021-8 ####AYDEE Bruce (65603)[facility] ([facility])[address] [place] [address] Platelets (Bld) [#/Vol] 336 x10*3/uL Normal 150-450 [facility] Comment on above: Performed By: #### 5 7021-8 ####AYDEE Bruce (62342)[facility] ([facility])[address] [place] [address] RBC (Bld) [#/Vol] 2.91 x10*6/uL Low 4.00-5.20 [facility] Comment on above: Performed By: #### 5 7021-8 ####AYDEE Bruce (20942)[facility] ([facility])[address] [place] [address] WBC (Bld) [#/Vol] 5.2 x10*3/uL Normal 4.4-11.3 [facility] Comment on above: Performed By: #### 5 7021-8 ####AYDEE Bruce ([id number])[facility] ([facility])[address] [place] [address] Gas panel (BldV)on 5 Anion gap 4 (BldV) [Moles/Vol] 11.0 mmol/L Normal 10.0-25.0 [facility] Comment on above: Performed By: #### 2 4339-4 ####AYDEE Bruce (99671)[facility] ([facility])[address]11 [place] [address] Base excess Calc (BldV) [Moles/Vol] -1.3000 mmol/L Normal -2.0-3.0 [facility] Comment on above: Performed By: #### 2 4339-4 ####AYDEE Bruce (02972)[facility] ([facility])42651 [place] [address] Calcium.ionized (BldV) [Moles/Vol] 1.15 mmol/L Normal 1.10-1.33 [facility] Comment on above: Performed By: #### 2 4339-4 ####AYDEE Bruce (81566)[facility] ([facility])[address] [place] [address] Chloride (BldV) [Moles/Vol] 92 mmol/L Low 98-107 [facility] Comment on above: Performed By: #### 2 4339-4 ####AYDEE Bruce (51292)[facility] ([facility])[address]3839 [place] [address] CO2 (BldV) [Partial pressure] 47 mm Hg Normal 41-51 [facility] Comment on above: Performed By: #### 2 4339-4 ####AYDEE Bruce (03513)[facility] ([facility])[address]85 [place] [address] Glucose [Mass/Vol] 80 mg/dL Normal 74-99 [facility] Comment on above: Performed By: #### 2 4339-4 ####AYDEE Bruce (40070)[facility] ([facility])[address]16 [place] [address] HCO3 (Bld) [Moles/Vol] 24.8 mmol/L Normal 22.0-26.0 [facility] Comment on above: Performed By: #### 2 4339-4 ####AYDEE Bruce (89023)[facility] ([facility])36773 [place] [address] Hematocrit Est (Bld) [Volume fraction] 28.0 % Low 36.0-46.0 [facility] Comment on above: Performed By: #### 2 4339-4 ####AYDEE Bruce (56414)[facility] ([facility])[address] [place] [address] 680[address] Hemoglobin (Bld) [Mass/Vol] 9.4 g/dL Low 12.0-16.0 [facility] Comment on above: Performed By: #### 2 4339-4 ####AYDEE Bruce ([id number])[facility] ([facility])[address] [place] [address] 57[address] Inhaled oxygen concentration 40 % Normal [facility] Comment on above: Performed By: #### 2 4339-4 ####AYDEE Bruce (23324)[facility] ([facility])[address] [place] [address] 674[address] Lactate (BldV) [Moles/Vol] 0.6 mmol/L Normal 0.4-2.0 [facility] Comment on above: Performed By: #### 2 4339-4 ####AYDEE Bruce (89783)[facility] ([facility])[address] [place] [address] 12649 Oxygen (BldV) [Partial pressure] 43 mm Hg Normal 35-45 [facility] Comment on above: Performed By: #### 2 4339-4 ####AYDEE Bruce ([id number])[facility] ([facility])[address] [place] [address] 53379 Oxygen saturation in Venous blood 73 % Normal 45-75 [facility] Comment on above: Performed By: #### 2 4339-4 ####AYDEE Bruce (68023)[facility] ([facility])[address] [place] [address] 21907 Oxyhemoglobin (BldV) [Mass fraction] 70.8 % Normal 45.0-75.0 [facility] Comment on above: Performed By: #### 2 4339-4 ####AYDEE Bruce (83959)[facility] ([facility])[address] [place] [address] pH (BldV) 7.33 [pH] Normal 7.33-7.43 [facility] Comment on above: Performed By: #### 2 4339-4 ####AYDEE Bruce ([id number])[facility] ([facility])[address] [place] [address] Potassium (BldV) [Moles/Vol] 3.8 mmol/L Normal 3.5-5.3 [facility] Comment on above: Performed By: #### 2 4339-4 ####AYDEE Bruce ([id number])[facility] ([facility])[id number] [place] [address]152 Sodium (BldV) [Moles/Vol] 124 mmol/L Low 136-145 [facility] Comment on above: Performed By: #### 2 4339-4 ####AYDEE Bruce ([id number])[facility] ([facility])[id number] [place] [address]2010 Glucose Test strip manual (B ld) [Mass/Vol]on 10-18-2024 Glucose [Mass/Vol] 84 mg/dL Normal 74-99 [facility] Comment on above: Performed By: #### 2 341-6 ####AYDEE Bruce ([id number])[facility] ([facility])[address] [place] [address]646 Heparin.unfractionatedon Heparin unfractionated Chromogenic method Qn (PPP) 0.5 IU/mL Normal See Comment Below for Therapeutic Ranges [facility] Comment on above: Order Comment: Obtai n 4 hours after any Heparin dosage change. Nursing to release order.The therapeutic reference range for UFH may be either 0.3-0.6 IU/mL or 0.3-0.7 IU/mL based on the clinical setting for anticoagulant therapy and the associated nomogram used. For Heparin dosing guidelines based on clinical scenario and Heparin Assay results, please refer to local Pharmacy and the [facility] Guidelines for Anticoagulation Therapy available on the [facility] intranet at: [email or web address] [email or web address]/Pharmacy/Pages/[facility]_Guidelines_for_Anticoagu.aspx Performed By: #### 3 274-8 ####AYDEE Bruce ([id number])[facility] ([facility])[id number] [place] [address] 71239 Heparin unfractionated Chromogenic method Qn (PPP) 0.2 IU/mL Normal See Comment Below for Therapeutic Ranges [facility] Comment on above: Order Comment: Obtai n 4 hours after any Heparin dosage change. Nursing to release order.The therapeutic reference range for UFH may be either 0.3-0.6 IU/mL or 0.3-0.7 IU/mL based on the clinical setting for anticoagulant therapy and the associated nomogram used. For Heparin dosing guidelines based on clinical scenario and Heparin Assay results, please refer to local Pharmacy and the [facility] Guidelines for Anticoagulation Therapy available on the [facility] intranet at: [email or web address]/Pharmacy/Pages/[facility]_Guidelines_for_Anticoagu.aspx Performed By: #### 3 274-8 ####AYDEE Bruce ([id number])[facility] ([facility])[id number] [place] [address] 40384 Magnesiumon 10-18-2024 Magnesium [Mass/Vol] 2.24 mg/dL Normal 1.60-2.40 [facility] Comment on above: Performed By: #### 1 9123-9 ####AYDEE Bruce ([id number])[facility] ([facility])[address] [place] [address] 65276 Renal function 2000 panelon 10-18-2024 Albumin BCP dye [Mass/Vol] 2.7 g/dL Low 3.4-5.0 [facility] Comment on above: Performed By: #### 2 4362-6 ####AYDEE Bruce ([id number])[facility] ([facility])[address]320 [place] [address] Anion gap [Moles/Vol] 18 mmol/L Normal 10-20 [facility] Comment on above: Performed By: #### 2 4362-6 ####AYDEE VALDEZTZER L ([id number])[facility] ([facility])[address]294 [place] [address] Calcium [Mass/Vol] 8.3 mg/dL Low 8.6-10.6 [facility] Comment on above: Performed By: #### 2 4362-6 ####AYDEE SCHMOTZER L ([id number])[facility] ([facility])[address] [place] [address] Chloride [Moles/Vol] 90 mmol/L Low 98-107 [facility] Comment on above: Performed By: #### 2 4362-6 ####AYDEE CAMILOMOTZER L ([id number])[facility] ([facility])[address]406 [place] [address] CO2 [Moles/Vol] 23 mmol/L Normal 21-32 [facility] Comment on above: Performed By: #### 2 4362-6 ####AYDEE VALDEZTZER L ([id number])[facility] ([facility])[address] [place] [address] Creatinine [Mass/Vol] 3.11 mg/dL High 0.50-1.05 [facility] Comment on above: Performed By: #### 2 4362-6 ####AYDEE CAMILOMOTZER L ([id number])[facility] ([facility])[address] [place] [address] Glomerular filtration rate 16 mL/min/1.73m*2 Low >60 [facility] Comment on above: Result Comment: Calc ulations of estimated GFR are performed using the 2020 CKD-EPI Study Refit equation without the race variable for the IDMS-Traceable creatinine methods.https://jasn.asnjournals.org/content/early/ N.5523661950 Performed By: #### 2 4362-6 ####AYDEE VALDEZTZER L ([id number])[facility] ([facility])[address]28 [place] [address] Glucose [Mass/Vol] 81 mg/dL Normal 74-99 [facility] Comment on above: Performed By: #### 2 4362-6 ####AYDEE Bruce ([id number])[facility] ([facility])[address]242 [place] [address] Phosphate [Mass/Vol] 6.1 mg/dL High 2.5-4.9 [facility] Comment on above: Performed By: #### 2 4362-6 ####AYDEE Bruce ([id number])[facility] ([facility])[address]338 [place] [address] Potassium [Moles/Vol] 4.0 mmol/L Normal 3.5-5.3 [facility] Comment on above: Performed By: #### 2 4362-6 ####AYDEE Bruce ([id number])[facility] ([facility])[address]45 [place] [address] Sodium [Moles/Vol] 127 mmol/L Low 136-145 [facility] Comment on above: Performed By: #### 2 4362-6 ####AYDEE Bruce ([id number])[facility] ([facility])[address]47 [place] [address] Urea nitrogen [Mass/Vol] 40 mg/dL High 6-23 [facility] Comment on above: Performed By: #### 2 4362-6 ####AYDEE Bruce ([id number])[facility] ([facility])[address]45 [place] [address] Basic metabolic 2000 panelon 10-17-2024 Anion gap [Moles/Vol] 16 mmol/L Normal 10-20 [facility] Comment on above: Performed By: #### 2 4321-2 ####AYDEE Bruce ([id number])[facility] ([facility])[address]50 [place] [address] Calcium [Mass/Vol] 8.0 mg/dL Low 8.6-10.6 [facility] Comment on above: Performed By: #### 2 4321-2 ####AYDEE Bruce ([id number])[facility] ([facility])[address] [place] [address] Chloride [Moles/Vol] 89 mmol/L Low 98-107 [facility] Comment on above: Performed By: #### 2 4321-2 ####AYDEE BAZZI L ([id number])[facility] ([facility])[address]320 [place] [address] CO2 [Moles/Vol] 26 mmol/L Normal 21-32 [facility] Comment on above: Performed By: #### 2 4321-2 ####AYDEE BAZZI L ([id number])[facility] ([facility])[address]65 [place] [address] Creatinine [Mass/Vol] 2.28 mg/dL High 0.50-1.05 [facility] Comment on above: Performed By: #### 2 4321-2 ####AYDEE BAZZI L ([id number])[facility] ([facility])[address]01 [place] [address] Glomerular filtration rate 23 mL/min/1.73m*2 Low >60 [facility] Comment on above: Result Comment: Calc ulations of estimated GFR are performed using the 2020 CKD-EPI Study Refit equation without the race variable for the IDMS-Traceable creatinine methods.https://jasn.asnjournals.org/content/early/ N.0343924420 Performed By: #### 2 4321-2 ####AYDEE BAZZI L ([id number])[facility] ([facility])[address]66 [place] [address] Glucose [Mass/Vol] 122 mg/dL High 74-99 [facility] Comment on above: Performed By: #### 2 4321-2 ####AYDEE CAMILOMOTZLILIANA L ([id number])[facility] ([facility])[address]66 [place] [address] Potassium [Moles/Vol] 3.8 mmol/L Normal 3.5-5.3 [facility] Comment on above: Result Comment: MILD HEMOLYSIS DETECTED. The result may be falsely elevated due to hemolysis or other interferents. Clinical correlation is recommended. Repeat testing may be considered. Performed By: #### 2 4321-2 ####AYDEE Bruce ([id number])[facility] ([facility])[address]017 [place] [address] Sodium [Moles/Vol] 127 mmol/L Low 136-145 [facility] Comment on above: Performed By: #### 2 4321-2 ####AYDEE Bruce ([id number])[facility] ([facility])[address] [place] [address] 41356 Urea nitrogen [Mass/Vol] 31 mg/dL High 6-23 [facility] Comment on above: Performed By: #### 2 4321-2 ####AYDEE Bruce ([id number])[facility] ([facility])[address] [place] [address] 66520 CBC W Auto Differential pane l (Bld)on 10-17-2024 Basophils (Bld) [#/Vol] 0.07 x10*3/uL Normal 0.00-0.10 [facility] Comment on above: Performed By: #### 5 7021-8 ####AYDEE Bruce ([id number])[facility] ([facility])[address] [place] [address] 46589 Basophils/100 WBC (Bld) 1.8 % Normal 0.0-2.0 [facility] Comment on above: Performed By: #### 5 7021-8 ####AYDEE BAZZI L ([id number])[facility] ([facility])[address] [place] [address] 65720 Eosinophils (Bld) [#/Vol] 0.42 x10*3/uL Normal 0.00-0.70 [facility] Comment on above: Performed By: #### 5 7021-8 ####AYDEE Bruce ([id number])[facility] ([facility])[address]17 [place] [address] Eosinophils/100 WBC (Bld) 10.7 % Normal 0.0-6.0 [facility] Comment on above: Performed By: #### 5 7021-8 ####AYDEE Bruce ([id number])[facility] ([facility])[address]00 [place] [address] Erythrocyte distribution width (RBC) [Ratio] 16.8 % High 11.5-14.5 [facility] Comment on above: Performed By: #### 5 7021-8 ####AYDEE Bruce ([id number])[facility] ([facility])[address] [place] [address] 38424 Hematocrit (Bld) [Volume fraction] 23.1 % Low 36.0-46.0 [facility] Comment on above: Performed By: #### 5 7021-8 ####AYDEE Bruce ([id number])[facility] ([facility])[address] [place] [address] 88735 Hemoglobin (Bld) [Mass/Vol] 7.7 g/dL Low 12.0-16.0 [facility] Comment on above: Performed By: #### 5 7021-8 ####AYDEE Bruce ([id number])[facility] ([facility])[address] [place] [address] 45352 Immature granulocytes (Bld) [#/Vol] 0.02 x10*3/uL Normal 0.00-0.70 [facility] Comment on above: Performed By: #### 5 7021-8 ####AYDEE Bruce ([id number])[facility] ([facility])[address]33 [place] [address] Immature granulocytes/100 WBC (Bld) 0.5 % Normal 0.0-0.9 [facility] Comment on above: Result Comment: Doris ture Granulocyte Count (IG) includes promyelocytes, myelocytes and metamyelocytes but does not include bands. Percent differential counts (%) should be interpreted in the context of the absolute cell counts (cells/UL). Performed By: #### 5 7021-8 ####AYDEE Bruce ([id number])[facility] ([facility])58176 [place] [address] Lymphocytes (Bld) [#/Vol] 1.12 x10*3/uL Low 1.20-4.80 [facility] Comment on above: Performed By: #### 5 7021-8 ####AYDEE Bruce (93993)[facility] ([facility])[address] [place] [address] 21198 Lymphocytes/100 WBC (Bld) 28.6 % Normal 13.0-44.0 [facility] Comment on above: Performed By: #### 5 7021-8 ####AYDEE Bruce ([id number])[facility] ([facility])[address] [place] [address] 71540 MCH (RBC) [Entitic mass] 29.6 pg Normal 26.0-34.0 [facility] Comment on above: Performed By: #### 5 7021-8 ####AYDEE Bruce ([id number])[facility] ([facility])86281 [place] [address] MCHC (RBC) [Mass/Vol] 33.3 g/dL Normal 32.0-36.0 [facility] Comment on above: Performed By: #### 5 7021-8 ####AYDEE Bruce ([id number])[facility] ([facility])[address]38 [place] [address] MCV (RBC) [Entitic vol] 89 fL Normal 80-100 [facility] Comment on above: Performed By: #### 5 7021-8 ####AYDEE Bruce ([id number])[facility] ([facility])[address] [place] [address] 62710 Monocytes (Bld) [#/Vol] 0.74 x10*3/uL Normal 0.10-1.00 [facility] Comment on above: Performed By: #### 5 7021-8 ####AYDEE Bruce ([id number])[facility] ([facility])[address]15 [place] [address] Monocytes/100 WBC (Bld) 18.9 % Normal 2.0-10.0 [facility] Comment on above: Performed By: #### 5 7021-8 ####AYDEE Bruce ([id number])[facility] ([facility])[address]83 [place] [address] Neutrophils (Bld) [#/Vol] 1.54 x10*3/uL Normal 1.20-7.70 [facility] Comment on above: Result Comment: Perc ent differential counts (%) should be interpreted in the context of the absolute cell counts (cells/uL). Performed By: #### 5 7021-8 ####AYDEE Bruce (15146)[facility] ([facility])[address]29 [place] [address] Neutrophils/100 WBC (Bld) 39.5 % Normal 40.0-80.0 [facility] Comment on above: Performed By: #### 5 7021-8 ####AYDEE Bruce (63989)[facility] ([facility])[address]00 [place] [address] Nucleated RBC/100 WBC (Bld) [Ratio] 0.0 /100 WBCs Normal 0.0-0.0 [facility] Comment on above: Performed By: #### 5 7021-8 ####AYDEE Bruce ([id number])[facility] ([facility])[address]242 [place] [address] Platelets (Bld) [#/Vol] 355 x10*3/uL Normal 150-450 [facility] Comment on above: Performed By: #### 5 7021-8 ####AYDEE Bruce ([id number])[facility] ([facility])[address]88 [place] [address] RBC (Bld) [#/Vol] 2.60 x10*6/uL Low 4.00-5.20 [facility] Comment on above: Performed By: #### 5 7021-8 ####AYDEE Bruce ([id number])[facility] ([facility])[address] [place] [address] 41286 WBC (Bld) [#/Vol] 3.9 x10*3/uL Low 4.4-11.3 [facility] Comment on above: Performed By: #### 5 7021-8 ####AYDEE Bruce (65394)[facility] ([facility])[address] [place] [address] 004[address] CBC panel Auto (Bld)on 10-17 Erythrocyte distribution width (RBC) [Ratio] 16.4 % High 11.5-14.5 [facility] Comment on above: Performed By: #### 5 8410-2 ####AYDEE Bruce ([id number])[facility] ([facility])[address] [place] [address] 55940 Hematocrit (Bld) [Volume fraction] 27.2 % Low 36.0-46.0 [facility] Comment on above: Performed By: #### 5 8410-2 ####AYDEE Bruce (19143)[facility] ([facility])[address] [place] [address] 25027 Hemoglobin (Bld) [Mass/Vol] 9.1 g/dL Low 12.0-16.0 [facility] Comment on above: Performed By: #### 5 8410-2 ####AYDEE Bruce (76188)[facility] ([facility])[address] [place] [address] 92400 MCH (RBC) [Entitic mass] 29.9 pg Normal 26.0-34.0 [facility] Comment on above: Performed By: #### 5 8410-2 ####AYDEE Bruce (35377)[facility] ([facility])[address] [place] [address] 99413 MCHC (RBC) [Mass/Vol] 33.5 g/dL Normal 32.0-36.0 [facility] Comment on above: Performed By: #### 5 8410-2 ####AYDEE Bruce ([id number])[facility] ([facility])83991 [place] [address] MCV (RBC) [Entitic vol] 90 fL Normal 80-100 [facility] Comment on above: Performed By: #### 5 8410-2 ####AYDEE Bruce ([id number])[facility] ([facility])80936 [place] [address] Nucleated RBC/100 WBC (Bld) [Ratio] 0.0 /100 WBCs Normal 0.0-0.0 [facility] Comment on above: Performed By: #### 5 8410-2 ####AYDEE Bruce (72603)[facility] ([facility])[address] [place] [address] 45737 Platelets (Bld) [#/Vol] 362 x10*3/uL Normal 150-450 [facility] Comment on above: Performed By: #### 5 8410-2 ####AYDEE Bruce ([id number])[facility] ([facility])[address] [place] [address] 35783 RBC (Bld) [#/Vol] 3.04 x10*6/uL Low 4.00-5.20 [facility] Comment on above: Performed By: #### 5 8410-2 ####AYDEE Bruce (67986)[facility] ([facility])[address]608 [place] [address] WBC (Bld) [#/Vol] 5.4 x10*3/uL Normal 4.4-11.3 [facility] Comment on above: Performed By: #### 5 8410-2 ####AYDEE Bruce (30666)[facility] ([facility])70984 [place] [address] Erythrocyte distribution width (RBC) [Ratio] 16.8 % High 11.5-14.5 [facility] Comment on above: Performed By: #### 5 8410-2 ####AYDEE Bruce (24951)[facility] ([facility])[address]15 [place] [address] Hematocrit (Bld) [Volume fraction] 22.6 % Low 36.0-46.0 [facility] Comment on above: Performed By: #### 5 8410-2 ####AYDEE Bruce (78503)[facility] ([facility])69253 [place] [address] Hemoglobin (Bld) [Mass/Vol] 7.4 g/dL Low 12.0-16.0 [facility] Comment on above: Performed By: #### 5 8410-2 ####AYDEE Bruce (75614)[facility] ([facility])[address] [place] [address] 36530 MCH (RBC) [Entitic mass] 29.1 pg Normal 26.0-34.0 [facility] Comment on above: Performed By: #### 5 8410-2 ####AYDEE Bruce ([id number])[facility] ([facility])[address] [place] [address] 68436 MCHC (RBC) [Mass/Vol] 32.7 g/dL Normal 32.0-36.0 [facility] Comment on above: Performed By: #### 5 8410-2 ####AYDEE Bruce ([id number])[facility] ([facility])17394 [place] [address] MCV (RBC) [Entitic vol] 89 fL Normal 80-100 [facility] Comment on above: Performed By: #### 5 8410-2 ####AYDEE Bruce (86006)[facility] ([facility])[address]226 [place] [address] Nucleated RBC/100 WBC (Bld) [Ratio] 0.0 /100 WBCs Normal 0.0-0.0 [facility] Comment on above: Performed By: #### 5 8410-2 ####AYDEE Bruce (74701)[facility] ([facility])59752 [place] [address] Platelets (Bld) [#/Vol] 355 x10*3/uL Normal 150-450 [facility] Comment on above: Performed By: #### 5 8410-2 ####AYDEE Bruce ([id number])[facility] ([facility])[address]86 [place] [address] RBC (Bld) [#/Vol] 2.54 x10*6/uL Low 4.00-5.20 [facility] Comment on above: Performed By: #### 5 8410-2 ####AYDEE Bruce (50238)[facility] ([facility])[address]75 [place] [address] WBC (Bld) [#/Vol] 5.1 x10*3/uL Normal 4.4-11.3 [facility] Comment on above: Performed By: #### 5 8410-2 ####AYDEE Bruce (22357)[facility] ([facility])[address] [place] [address] Clostridioides difficile tox in A+B tcdA+tcdB geneson 10-17-2024 C. difficile toxin A+B tcdA+tcdB genes MONIKA+probe Ql (Stl) Clostridioides difficile toxin A+B tcdA+tcdB genes Not Detected Normal Not Detected [facility] Comment on above: Order Comment: This test is an FDA-cleared real-time PCR assay for detection of toxigenic C. difficile DNA from unprocessed liquid or unformed stool specimens that have not undergone nucleic acid extraction in symptomatic patients with potential C. difficile infection (CDI). A positive result may indicate colonization, and clinical assessment is required for the diagnosis of CDI. This test cannot be performed on formed stools or used as a test of cure, and should not be performed more than once per 7 days. Performed By: #### 8 0685-1 ####AYDEE Bruce ([id number])[facility] ([facility])[address]67 [place] [address] Glucose Test strip manual (B ld) [Mass/Vol]on 10-17-2024 Glucose [Mass/Vol] 84 mg/dL Normal 74-99 [facility] Comment on above: Performed By: #### 2 341-6 ####AYDEE Bruce ([id number])[facility] ([facility])[address] [place] [address] Glucose [Mass/Vol] 98 mg/dL Normal 74-99 [facility] Comment on above: Performed By: #### 2 341-6 ####AYDEE VALDEZTZER L (04400)[facility] ([facility])71798 [place] [address] Glucose [Mass/Vol] 115 mg/dL High 74-99 [facility] Comment on above: Performed By: #### 2 341-6 ####AYDEE Bruce ([id number])[facility] ([facility])[address]80 [place] [address] Glucose [Mass/Vol] 104 mg/dL High 74-99 [facility] Comment on above: Performed By: #### 2 341-6 ####AYDEE Bruce ([id number])[facility] ([facility])[address]574 [place] [address] Heparin.unfractionatedon Heparin unfractionated Chromogenic method Qn (PPP) 0.7 IU/mL Normal See Comment Below for Therapeutic Ranges [facility] Comment on above: Order Comment: Obtai n 4 hours after any Heparin dosage change. Nursing to release order.The therapeutic reference range for UFH may be either 0.3-0.6 IU/mL or 0.3-0.7 IU/mL based on the clinical setting for anticoagulant therapy and the associated nomogram used. For Heparin dosing guidelines based on clinical scenario and Heparin Assay results, please refer to local Pharmacy and the [facility] Guidelines for Anticoagulation Therapy available on the [facility] intranet at: [email or web address] Performed By: #### 3 274-8 ####AYDEE VALDEZTZLILIANA L (75346)[facility] ([facility])[address]489 [place] [address] Hepatic function 2000 panelo n 10-17-2024 Albumin BCP dye [Mass/Vol] 2.7 g/dL Low 3.4-5.0 [facility] Comment on above: Performed By: #### 2 4325-3 ####AYDEE Bruce ([id number])[facility] ([facility])[address]162 [place] [address] ALP [Catalytic activity/Vol] 192 U/L High 33-136 [facility] Comment on above: Performed By: #### 2 4325-3 ####AYDEE BAZZI L (84660)[facility] ([facility])[address]12 [place] [address] ALT With P-5'-P [Catalytic activity/Vol] 19 U/L Normal 7-45 [facility] Comment on above: Result Comment: Susan ents treated with Sulfasalazine may generate falsely decreased results for ALT. Performed By: #### 2 4325-3 ####AYDEE Bruce ([id number])[facility] ([facility])[address]709 [place] [address] AST With P-5'-P [Catalytic activity/Vol] 35 U/L Normal 9-39 [facility] Comment on above: Result Comment: MILD HEMOLYSIS DETECTED. The result may be falsely elevated due to hemolysis or other interferents. Clinical correlation is recommended. Repeat testing may be considered. Performed By: #### 2 4325-3 ####AYDEE Bruce ([id number])[facility] ([facility])[address]27 [place] [address] Bilirubin [Mass/Vol] 1.2 mg/dL Normal 0.0-1.2 [facility] Comment on above: Performed By: #### 2 4325-3 ####AYDEE BAZZI L (04666)[facility] ([facility])[address] [place] [address] Bilirubin.direct [Mass/Vol] 0.3 mg/dL Normal 0.0-0.3 [facility] Comment on above: Result Comment: MILD HEMOLYSIS DETECTED. The result may be falsely decreased due to hemolysis or other interferents. Clinical correlation is recommended. Repeat testing may be considered. Performed By: #### 2 4325-3 ####AYDEE Bruce (50234)[facility] ([facility])[address]11 [place] [address] Protein [Mass/Vol] 5.1 g/dL Low 6.4-8.2 [facility] Comment on above: Performed By: #### 2 4325-3 ####AYDEE Bruce ([id number])[facility] ([facility])[address]99 [place] [address] Lactateon 10-17-2024 Lactate [Moles/Vol] 0.7 mmol/L Normal 0.4-2.0 [facility] Comment on above: Order Comment: Venip uncture immediately after or during the administration of Metamizole may lead to falsely low results. Testing should be performed immediately prior to Metamizole dosing. Performed By: #### 2 524-7 ####AYDEE Bruce ([id number])[facility] ([facility])[address]993 [place] [address] Magnesiumon 10-17-2024 Magnesium [Mass/Vol] 2.24 mg/dL Normal 1.60-2.40 [facility] Comment on above: Performed By: #### 1 9123-9 ####AYDEE Bruce ([id number])[facility] ([facility])[address] [place] [address] Phosphateon 10-17-2024 Phosphate [Mass/Vol] 4.2 mg/dL Normal 2.5-4.9 [facility] Comment on above: Result Comment: MILD HEMOLYSIS DETECTED. The result may be falsely elevated due to hemolysis or other interferents. Clinical correlation is recommended. Repeat testing may be considered. Performed By: #### 2 [id number] ####AYDEE Bruce ([id number])[facility] ([facility])[address] [place] [address] THROMBOELASTOGRAPH CLOTTING GLOBAL PROFILEon 10-17-2024 Clot angle.kaolin induced 80.0 deg High 63.0-78.0 [facility] Comment on above: Performed By: #### P OCTEGLO ####AYDEE Bruce ([id number])[facility] ([facility])[address] [place] [address] Clot formation.kaolin induced 0.8 min Normal 0.8-2.1 [facility] Comment on above: Performed By: #### P OCTEGLO ####AYDEE Bruce ([id number])[facility] ([facility])[address] [place] [address] Clot initiation.kaolin induced 5.9 min Normal 4.6-9.1 [facility] Comment on above: Performed By: #### P OCTEGLO ####AYDEE Bruce ([id number])[facility] ([facility])[address] [place] [address] Clot initiation.kaolin induced^post heparin neutralization 5.8 min Normal 4.3-8.3 [facility] Comment on above: Performed By: #### P OCTEGLO ####AYDEE Bruce ([id number])[facility] ([facility])[address] [place] [address] Fibrinogen 814 mg/dL High 278-581 [facility] Comment on above: Performed By: #### P OCTEGLO ####AYDEE Bruce ([id number])[facility] ([facility])[address] [place] [address] Maximum clot strength amplitude.kaolin induced 74.0 mm High 52.0-69.0 [facility] Comment on above: Performed By: #### P OCTEGLO ####AYDEE Bruce ([id number])[facility] ([facility])[address] [place] [address] Maximum clot strength amplitude.kaolin+tiss ue factor induced 73.0 mm High 52.0-70.0 [facility] Comment on above: Performed By: #### P OCTEGLO ####AYDEE Bruce ([id number])[facility] ([facility])[address]290 [place] [address] Maximum clot strength amplitude.tissue factor induced+platelet glycoprotein IIb-IIIa receptor inhibited 45.0 mm High 15.0-32.0 [facility] Comment on above: Performed By: #### P OCTEGLO ####AYDEE BAZZI L ([id number])[facility] ([facility])[address] [place] [address] Basic metabolic 2000 panelon 10-16-2024 Anion gap [Moles/Vol] 22 mmol/L High 10-20 [facility] Comment on above: Performed By: #### 2 4321-2 ####AYDEE Bruce ([id number])[facility] ([facility])[address] [place] [address]13 Calcium [Mass/Vol] 8.7 mg/dL Normal 8.6-10.6 [facility] Comment on above: Performed By: #### 2 4321-2 ####AYDEE BAZZI L ([id number])[facility] ([facility])[address] [place] [address]8587 Chloride [Moles/Vol] 87 mmol/L Low 98-107 [facility] Comment on above: Performed By: #### 2 4321-2 ####AYDEE BAZZI L ([id number])[facility] ([facility])[address] [place] [address] 62404 CO2 [Moles/Vol] 19 mmol/L Low 21-32 [facility] Comment on above: Performed By: #### 2 4321-2 ####AYDEE BAZZI L ([id number])[facility] ([facility])[address] [place] [address] 32434 Creatinine [Mass/Vol] 4.33 mg/dL High 0.50-1.05 [facility] Comment on above: Performed By: #### 2 4321-2 ####AYDEE BAZZI L ([id number])[facility] ([facility])[address]70 [place] [address] Glomerular filtration rate 11 mL/min/1.73m*2 Low >60 [facility] Comment on above: Result Comment: Calc ulations of estimated GFR are performed using the 2020 CKD-EPI Study Refit equation without the race variable for the IDMS-Traceable creatinine methods.https://jasn.asnjournals.org/content// N.5928579359 Performed By: #### 2 4321-2 ####AYDEE Bruce ([id number])[facility] ([facility])[address]37 [place] [address] Glucose [Mass/Vol] 82 mg/dL Normal 74-99 [facility] Comment on above: Performed By: #### 2 4321-2 ####AYDEE BAZZI L ([id number])[facility] ([facility])[address] [place] [address] Potassium [Moles/Vol] 4.4 mmol/L Normal 3.5-5.3 [facility] Comment on above: Performed By: #### 2 4321-2 ####AYDEE BAZZI L ([id number])[facility] ([facility])[address]256 [place] [address] Sodium [Moles/Vol] 124 mmol/L Low 136-145 [facility] Comment on above: Performed By: #### 2 4321-2 ####AYDEE CAMILOMOTZER L ([id number])[facility] ([facility])[address] [place] [address]3266 Urea nitrogen [Mass/Vol] 86 mg/dL High 6-23 [facility] Comment on above: Performed By: #### 2 4321-2 ####AYDEE CAMILOMOTZLILIANA L ([id number])[facility] ([facility])[address] [place] [address]19 Blood type and Indirect anti body screen panel (Bld)on 10-16-2024 ABO group Nom (Bld) B Normal [facility] Comment on above: Performed By: #### 3 4532-2 ####AYDEE Bruce ([id number])[facility] ([facility])[address] [facility] [place] [address] Blood group antibody screen Ql Negative [facility] Comment on above: Performed By: #### 3 4532-2 ####AYDEE Bruce ([id number])[facility] ([facility])[address] [facility] [place] [address] D Ag Ql (Bld) Positive [facility] Comment on above: Performed By: #### 3 4532-2 ####AYDEE Bruce ([id number])[facility] ([facility])[address] [place] [address] CBC W Auto Differential pane l (Bld)on 10-16-2024 Basophils (Bld) [#/Vol] 0.11 x10*3/uL High 0.00-0.10 [facility] Comment on above: Performed By: #### 5 7021-8 ####AYDEE Bruce ([id number])[facility] ([facility])[address] [place] [address] Basophils/100 WBC (Bld) 1.7 % Normal 0.0-2.0 [facility] Comment on above: Performed By: #### 5 7021-8 ####AYDEE Bruce (75927)[facility] ([facility])[address]47 [place] [address] Eosinophils (Bld) [#/Vol] 1.21 x10*3/uL High 0.00-0.70 [facility] Comment on above: Performed By: #### 5 7021-8 ####AYDEE BAZZI L (85836)[facility] ([facility])[address]31 [place] [address] Eosinophils/100 WBC (Bld) 18.4 % Normal 0.0-6.0 [facility] Comment on above: Performed By: #### 5 7021-8 ####AYDEE Bruce ([id number])[facility] ([facility])[address]20 [place] [address] Erythrocyte distribution width (RBC) [Ratio] 16.7 % High 11.5-14.5 [facility] Comment on above: Performed By: #### 5 7021-8 ####AYDEE Bruce ([id number])[facility] ([facility])[address]019 [place] [address] Hematocrit (Bld) [Volume fraction] 24.5 % Low 36.0-46.0 [facility] Comment on above: Performed By: #### 5 7021-8 ####AYDEE Bruce ([id number])[facility] ([facility])[address] [place] [address]8434 Hemoglobin (Bld) [Mass/Vol] 8.3 g/dL Low 12.0-16.0 [facility] Comment on above: Performed By: #### 5 7021-8 ####AYDEE Bruce ([id number])[facility] ([facility])[address] [place] [address] 37722 Immature granulocytes (Bld) [#/Vol] 0.06 x10*3/uL Normal 0.00-0.70 [facility] Comment on above: Performed By: #### 5 7021-8 ####AYDEE Bruce ([id number])[facility] ([facility])[address] [place] [address]992 Immature granulocytes/100 WBC (Bld) 0.9 % Normal 0.0-0.9 [facility] Comment on above: Result Comment: Doris ture Granulocyte Count (IG) includes promyelocytes, myelocytes and metamyelocytes but does not include bands. Percent differential counts (%) should be interpreted in the context of the absolute cell counts (cells/UL). Performed By: #### 5 7021-8 ####AYDEE Bruce ([id number])[facility] ([facility])[address] [place] [address] Lymphocytes (Bld) [#/Vol] 1.72 x10*3/uL Normal 1.20-4.80 [facility] Comment on above: Performed By: #### 5 7021-8 ####AYDEE Bruce ([id number])[facility] ([facility])[address]463 [place] [address] Lymphocytes/100 WBC (Bld) 26.2 % Normal 13.0-44.0 [facility] Comment on above: Performed By: #### 5 7021-8 ####AYDEE Bruce ([id number])[facility] ([facility])[address]061 [place] [address] MCH (RBC) [Entitic mass] 30.5 pg Normal 26.0-34.0 [facility] Comment on above: Performed By: #### 5 7021-8 ####AYDEE Bruce (19885)[facility] ([facility])[address]27 [place] [address] MCHC (RBC) [Mass/Vol] 33.9 g/dL Normal 32.0-36.0 [facility] Comment on above: Performed By: #### 5 7021-8 ####AYDEE Bruce (76296)[facility] ([facility])[address]99 [place] [address] MCV (RBC) [Entitic vol] 90 fL Normal 80-100 [facility] Comment on above: Performed By: #### 5 7021-8 ####AYDEE Bruce ([id number])[facility] ([facility])[address]22 [place] [address] Monocytes (Bld) [#/Vol] 0.91 x10*3/uL Normal 0.10-1.00 [facility] Comment on above: Performed By: #### 5 7021-8 ####AYDEE Bruce (53212)[facility] ([facility])[address]15 [place] [address] Monocytes/100 WBC (Bld) 13.9 % Normal 2.0-10.0 [facility] Comment on above: Performed By: #### 5 7021-8 ####AYDEE Bruce (68007)[facility] ([facility])[address]652 [place] [address] Neutrophils (Bld) [#/Vol] 2.55 x10*3/uL Normal 1.20-7.70 [facility] Comment on above: Result Comment: Perc ent differential counts (%) should be interpreted in the context of the absolute cell counts (cells/uL). Performed By: #### 5 7021-8 ####AYDEE Bruce ([id number])[facility] ([facility])[address] [place] [address] Neutrophils/100 WBC (Bld) 38.9 % Normal 40.0-80.0 [facility] Comment on above: Performed By: #### 5 7021-8 ####AYDEE Bruce (52526)[facility] ([facility])[address]512 [place] [address] Nucleated RBC/100 WBC (Bld) [Ratio] 0.3 /100 WBCs High 0.0-0.0 [facility] Comment on above: Performed By: #### 5 7021-8 ####AYDEE Bruce (24086)[facility] ([facility])[address]687 [place] [address] Platelets (Bld) [#/Vol] 355 x10*3/uL Normal 150-450 [facility] Comment on above: Performed By: #### 5 7021-8 ####AYDEE Bruce ([id number])[facility] ([facility])[address]29 [place] [address] RBC (Bld) [#/Vol] 2.72 x10*6/uL Low 4.00-5.20 [facility] Comment on above: Performed By: #### 5 7021-8 ####AYDEE BAZZI L (91600)[facility] ([facility])[address]403 [place] [address] WBC (Bld) [#/Vol] 6.6 x10*3/uL Normal 4.4-11.3 [facility] Comment on above: Performed By: #### 5 7021-8 ####AYDEE Bruce ([id number])[facility] ([facility])[address]231 [place] [address] CBC panel Auto (Bld)on 10-16 Erythrocyte distribution width (RBC) [Ratio] 16.9 % High 11.5-14.5 [facility] Comment on above: Performed By: #### 5 8410-2 ####AYDEE Bruce ([id number])[facility] ([facility])[address] [place] [address] Hematocrit (Bld) [Volume fraction] 24.7 % Low 36.0-46.0 [facility] Comment on above: Performed By: #### 5 8410-2 ####AYDEE Bruce (92661)[facility] ([facility])[address] [place] [address] 92233 Hemoglobin (Bld) [Mass/Vol] 8.2 g/dL Low 12.0-16.0 [facility] Comment on above: Performed By: #### 5 8410-2 ####AYDEE Bruce ([id number])[facility] ([facility])[address] [place] [address] 85146 MCH (RBC) [Entitic mass] 29.8 pg Normal 26.0-34.0 [facility] Comment on above: Performed By: #### 5 8410-2 ####AYDEE Bruce ([id number])[facility] ([facility])[address] [place] [address] 35484 MCHC (RBC) [Mass/Vol] 33.2 g/dL Normal 32.0-36.0 [facility] Comment on above: Performed By: #### 5 8410-2 ####AYDEE Bruce ([id number])[facility] ([facility])[address] [place] [address] 46913 MCV (RBC) [Entitic vol] 90 fL Normal 80-100 [facility] Comment on above: Performed By: #### 5 8410-2 ####AYDEE Bruce (20306)[facility] ([facility])[address]50 [place] [address] Nucleated RBC/100 WBC (Bld) [Ratio] 0.0 /100 WBCs Normal 0.0-0.0 [facility] Comment on above: Performed By: #### 5 8410-2 ####AYDEE Bruce (95996)[facility] ([facility])[address]287 [place] [address] Platelets (Bld) [#/Vol] 379 x10*3/uL Normal 150-450 [facility] Comment on above: Performed By: #### 5 8410-2 ####AYDEE Bruce ([id number])[facility] ([facility])[address] [place] [address] 69995 RBC (Bld) [#/Vol] 2.75 x10*6/uL Low 4.00-5.20 [facility] Comment on above: Performed By: #### 5 8410-2 ####AYDEE Bruce ([id number])[facility] ([facility])[address] [place] [address] 77004 WBC (Bld) [#/Vol] 4.2 x10*3/uL Low 4.4-11.3 [facility] Comment on above: Performed By: #### 5 8410-2 ####AYDEE Bruce ([id number])[facility] ([facility])[address] [place] [address] 78624 Glucose Test strip manual (B ld) [Mass/Vol]on 10-16-2024 Glucose [Mass/Vol] 98 mg/dL Normal 74-99 [facility] Comment on above: Performed By: #### 2 341-6 ####AYDEE Bruce (00757)[facility] ([facility])[address]082 [place] [address] Glucose [Mass/Vol] 102 mg/dL High 74-99 [facility] Comment on above: Performed By: #### 2 341-6 ####AYDEE Bruce (65915)[facility] ([facility])[address]387 [place] [address] Glucose [Mass/Vol] 91 mg/dL Normal 74-99 [facility] Comment on above: Performed By: #### 2 341-6 ####AYDEE Bruce ([id number])[facility] ([facility])[address]63 [place] [address] Glucose [Mass/Vol] 84 mg/dL Normal 74-99 [facility] Comment on above: Performed By: #### 2 341-6 ####AYDEE Bruce ([id number])[facility] ([facility])[address]42 [place] [address] Heparin.unfractionatedon Heparin unfractionated Chromogenic method Qn (PPP) 0.4 IU/mL Normal See Comment Below for Therapeutic Ranges [facility] Comment on above: Order Comment: Obtai n 4 hours after any Heparin dosage change. Nursing to release order.The therapeutic reference range for UFH may be either 0.3-0.6 IU/mL or 0.3-0.7 IU/mL based on the clinical setting for anticoagulant therapy and the associated nomogram used. For Heparin dosing guidelines based on clinical scenario and Heparin Assay results, please refer to local Pharmacy and the [facility] Guidelines for Anticoagulation Therapy available on the [facility] intranet at: [email or web address] Performed By: #### 3 274-8 ####AYDEE Bruce ([id number])[facility] ([facility])[address]16 [place] [address] Hepatic function 2000 panelo n 10-16-2024 Albumin BCP dye [Mass/Vol] 2.9 g/dL Low 3.4-5.0 [facility] Comment on above: Performed By: #### 2 4325-3 ####AYDEE Bruce ([id number])[facility] ([facility])[address]251 [place] [address] ALP [Catalytic activity/Vol] 214 U/L High 33-136 [facility] Comment on above: Performed By: #### 2 4325-3 ####AYDEE Bruce ([id number])[facility] ([facility])[address]57 [place] [address] ALT With P-5'-P [Catalytic activity/Vol] 21 U/L Normal 7-45 [facility] Comment on above: Result Comment: Susan ents treated with Sulfasalazine may generate falsely decreased results for ALT. Performed By: #### 2 4325-3 ####AYDEE Bruce ([id number])[facility] ([facility])[address]72 [place] [address] AST With P-5'-P [Catalytic activity/Vol] 23 U/L Normal 9-39 [facility] Comment on above: Performed By: #### 2 4325-3 ####AYDEE Bruce (87043)[facility] ([facility])[address]57 [place] [address] Bilirubin [Mass/Vol] 1.3 mg/dL High 0.0-1.2 [facility] Comment on above: Performed By: #### 2 4325-3 ####AYDEE Bruce ([id number])[facility] ([facility])[address]17 [place] [address] Bilirubin.direct [Mass/Vol] 0.4 mg/dL High 0.0-0.3 [facility] Comment on above: Performed By: #### 2 4325-3 ####AYDEE Bruce ([id number])[facility] ([facility])[address]707 [place] [address] Protein [Mass/Vol] 5.4 g/dL Low 6.4-8.2 [facility] Comment on above: Performed By: #### 2 4325-3 ####AYDEE Bruce ([id number])[facility] ([facility])[address]89 [place] [address] IR CVC TUNNELEDon 10-16-2024 IR CVC TUNNELED Normal [facility] Magnesiumon 10-16-2024 Magnesium [Mass/Vol] 1.94 mg/dL Normal 1.60-2.40 [facility] Comment on above: Performed By: #### 1 9123-9 ####AYDEE Bruce ([id number])[facility] ([facility])[address]10 [place] [address] Magnesium [Mass/Vol] 2.27 mg/dL Normal 1.60-2.40 [facility] Comment on above: Performed By: #### 1 9123-9 ####AYDEE Bruce (85004)[facility] ([facility])[address] [place] [address] 867[address] Phosphateon 10-16-2024 Phosphate [Mass/Vol] 5.8 mg/dL High 2.5-4.9 [facility] Comment on above: Performed By: #### 2 777-1 ####AYDEE Bruce ([id number])[facility] ([facility])[address]9556 [place] [address] Renal function 2000 panelon 10-16-2024 Albumin BCP dye [Mass/Vol] 2.9 g/dL Low 3.4-5.0 [facility] Comment on above: Performed By: #### 2 4362-6 ####AYDEE Bruce ([id number])[facility] ([facility])[address]21 [place] [address] Anion gap [Moles/Vol] 20 mmol/L Normal 10-20 [facility] Comment on above: Performed By: #### 2 4362-6 ####AYDEE Bruce ([id number])[facility] ([facility])[address] [place] [address] 34054 Calcium [Mass/Vol] 8.1 mg/dL Low 8.6-10.6 [facility] Comment on above: Performed By: #### 2 4362-6 ####AYDEE Bruce (71975)[facility] ([facility])[address]24 [place] [address] Chloride [Moles/Vol] 90 mmol/L Low 98-107 [facility] Comment on above: Performed By: #### 2 4362-6 ####AYDEE Bruce (75486)[facility] ([facility])[address] [place] [address] CO2 [Moles/Vol] 23 mmol/L Normal 21-32 [facility] Comment on above: Performed By: #### 2 4362-6 ####AYDEE Bruce ([id number])[facility] ([facility])06079 [place] [address] Creatinine [Mass/Vol] 1.58 mg/dL High 0.50-1.05 [facility] Comment on above: Performed By: #### 2 4362-6 ####AYDEE Bruce (59405)[facility] ([facility])[address]378 [place] [address] Glomerular filtration rate 36 mL/min/1.73m*2 Low >60 [facility] Comment on above: Result Comment: Calc ulations of estimated GFR are performed using the 2020 CKD-EPI Study Refit equation without the race variable for the IDMS-Traceable creatinine methods.https://jasn.asnjournals.org/content/early/ N.0481548795 Performed By: #### 2 4362-6 ####AYDEE Bruce ([id number])[facility] ([facility])[address]292 [place] [address] Glucose [Mass/Vol] 98 mg/dL Normal 74-99 [facility] Comment on above: Performed By: #### 2 4362-6 ####AYDEE Bruce ([id number])[facility] ([facility])[address]32 [place] [address] Phosphate [Mass/Vol] 2.1 mg/dL Low 2.5-4.9 [facility] Comment on above: Performed By: #### 2 4362-6 ####AYDEE Bruce ([id number])[facility] ([facility])[address]247 [place] [address] Potassium [Moles/Vol] 3.6 mmol/L Normal 3.5-5.3 [facility] Comment on above: Performed By: #### 2 4362-6 ####AYDEE Bruce ([id number])[facility] ([facility])64693 [place] [address] Sodium [Moles/Vol] 129 mmol/L Low 136-145 [facility] Comment on above: Performed By: #### 2 4362-6 ####AYDEE Bruce (65136)[facility] ([facility])[address]677 [place] [address] Urea nitrogen [Mass/Vol] 22 mg/dL Normal 6-23 [facility] Comment on above: Performed By: #### 2 4362-6 ####AYDEE Bruce (36584)[facility] ([facility])[address]50 [place] [address] Basic metabolic 2000 panelon 10-15-2024 Anion gap [Moles/Vol] 17 mmol/L Normal 10-20 [facility] Comment on above: Performed By: #### 2 4321-2 ####AYDEE Bruce (91714)[facility] ([facility])[address]382 [place] [address] Calcium [Mass/Vol] 9.1 mg/dL Normal 8.6-10.6 [facility] Comment on above: Performed By: #### 2 4321-2 ####AYDEE BAZZI L (73963)[facility] ([facility])[address]32 [place] [address] Chloride [Moles/Vol] 87 mmol/L Low 98-107 [facility] Comment on above: Performed By: #### 2 4321-2 ####AYDEE Bruce (77339)[facility] ([facility])[address]97 [place] [address] CO2 [Moles/Vol] 24 mmol/L Normal 21-32 [facility] Comment on above: Performed By: #### 2 4321-2 ####AYDEE Bruce (61004)[facility] ([facility])[address] [place] [address] Creatinine [Mass/Vol] 3.42 mg/dL High 0.50-1.05 [facility] Comment on above: Performed By: #### 2 4321-2 ####AYDEE BAZZI L ([id number])[facility] ([facility])[address]89 [place] [address] Glomerular filtration rate 14 mL/min/1.73m*2 Low >60 [facility] Comment on above: Result Comment: Calc ulations of estimated GFR are performed using the 2020 CKD-EPI Study Refit equation without the race variable for the IDMS-Traceable creatinine methods.https://jasn.asnjournals.org/content/early// N.9580702319 Performed By: #### 2 4321-2 ####AYDEE Bruce (97775)[facility] ([facility])[address]388 [place] [address] Glucose [Mass/Vol] 121 mg/dL High 74-99 [facility] Comment on above: Performed By: #### 2 4321-2 ####AYDEE Bruce ([id number])[facility] ([facility])[address]881 [place] [address] Potassium [Moles/Vol] 4.0 mmol/L Normal 3.5-5.3 [facility] Comment on above: Performed By: #### 2 4321-2 ####AYDEE BAZZI L (46029)[facility] ([facility])[address]145 [place] [address] Sodium [Moles/Vol] 124 mmol/L Low 136-145 [facility] Comment on above: Performed By: #### 2 4321-2 ####AYDEE Bruce (13598)[facility] ([facility])[address]49 [place] [address] Urea nitrogen [Mass/Vol] 73 mg/dL High 6-23 [facility] Comment on above: Performed By: #### 2 4321-2 ####AYDEE Bruce ([id number])[facility] ([facility])[address]62 [place] [address] CBC W Auto Differential pane l (Bld)on 10-15-2024 Erythrocyte distribution width (RBC) [Ratio] 16.8 % High 11.5-14.5 [facility] Comment on above: Order Comment: The p reviously reported component Neutrophils % is no longer being reported.The previously reported component Lymphocytes % is no longer being reported.The previously reported component Monocytes % is no longer being reported.The previously reported component Eosinophils % is no longer being reported.The previously reported component Basophils % is no longer being reported.The previously reported component Absolute Neutrophils is no longer being reported.The previously reported component Absolute Lymphocytes is no longer being reported.The previously reported component Absolute Monocytes is no longer being reported.The previously reported component Absolute Eosinophils is no longer being reported.The previously reported component Absolute Basophils is no longer being reported. Performed By: #### 5 7021-8 ####AYDEE Bruce ([id number])[facility] ([facility])[address] [place] [address] Hematocrit (Bld) [Volume fraction] 25.7 % Low 36.0-46.0 [facility] Comment on above: Order Comment: The p reviously reported component Neutrophils % is no longer being reported.The previously reported component Lymphocytes % is no longer being reported.The previously reported component Monocytes % is no longer being reported.The previously reported component Eosinophils % is no longer being reported.The previously reported component Basophils % is no longer being reported.The previously reported component Absolute Neutrophils is no longer being reported.The previously reported component Absolute Lymphocytes is no longer being reported.The previously reported component Absolute Monocytes is no longer being reported.The previously reported component Absolute Eosinophils is no longer being reported.The previously reported component Absolute Basophils is no longer being reported. Performed By: #### 5 7021-8 ####AYDEE Bruce ([id number])[facility] ([facility])[address] [place] [address] Hemoglobin (Bld) [Mass/Vol] 8.5 g/dL Low 12.0-16.0 [facility] Comment on above: Order Comment: The p reviously reported component Neutrophils % is no longer being reported.The previously reported component Lymphocytes % is no longer being reported.The previously reported component Monocytes % is no longer being reported.The previously reported component Eosinophils % is no longer being reported.The previously reported component Basophils % is no longer being reported.The previously reported component Absolute Neutrophils is no longer being reported.The previously reported component Absolute Lymphocytes is no longer being reported.The previously reported component Absolute Monocytes is no longer being reported.The previously reported component Absolute Eosinophils is no longer being reported.The previously reported component Absolute Basophils is no longer being reported. Performed By: #### 5 7021-8 ####AYDEE Bruce ([id number])[facility] ([facility])[address] [place] [address] Immature granulocytes (Bld) [#/Vol] 0.09 x10*3/uL Normal 0.00-0.70 [facility] Comment on above: Order Comment: The p reviously reported component Neutrophils % is no longer being reported.The previously reported component Lymphocytes % is no longer being reported.The previously reported component Monocytes % is no longer being reported.The previously reported component Eosinophils % is no longer being reported.The previously reported component Basophils % is no longer being reported.The previously reported component Absolute Neutrophils is no longer being reported.The previously reported component Absolute Lymphocytes is no longer being reported.The previously reported component Absolute Monocytes is no longer being reported.The previously reported component Absolute Eosinophils is no longer being reported.The previously reported component Absolute Basophils is no longer being reported. Performed By: #### 5 7021-8 ####AYDEE Bruce ([id number])[facility] ([facility])[address] [place] [address] Immature granulocytes/100 WBC (Bld) 1.1 % High 0.0-0.9 [facility] Comment on above: Order Comment: The p reviously reported component Neutrophils % is no longer being reported.The previously reported component Lymphocytes % is no longer being reported.The previously reported component Monocytes % is no longer being reported.The previously reported component Eosinophils % is no longer being reported.The previously reported component Basophils % is no longer being reported.The previously reported component Absolute Neutrophils is no longer being reported.The previously reported component Absolute Lymphocytes is no longer being reported.The previously reported component Absolute Monocytes is no longer being reported.The previously reported component Absolute Eosinophils is no longer being reported.The previously reported component Absolute Basophils is no longer being reported. Result Comment: Doris ture Granulocyte Count (IG) includes promyelocytes, myelocytes and metamyelocytes but does not include bands. Percent differential counts (%) should be interpreted in the context of the absolute cell counts (cells/UL). Performed By: #### 5 7021-8 ####AYDEE Bruce ([id number])[facility] ([facility])[address] [place] [address] MCH (RBC) [Entitic mass] 30.4 pg Normal 26.0-34.0 [facility] Comment on above: Order Comment: The p reviously reported component Neutrophils % is no longer being reported.The previously reported component Lymphocytes % is no longer being reported.The previously reported component Monocytes % is no longer being reported.The previously reported component Eosinophils % is no longer being reported.The previously reported component Basophils % is no longer being reported.The previously reported component Absolute Neutrophils is no longer being reported.The previously reported component Absolute Lymphocytes is no longer being reported.The previously reported component Absolute Monocytes is no longer being reported.The previously reported component Absolute Eosinophils is no longer being reported.The previously reported component Absolute Basophils is no longer being reported. Performed By: #### 5 7021-8 ####AYDEE Bruce ([id number])[facility] ([facility])[address] [place] [address] MCHC (RBC) [Mass/Vol] 33.1 g/dL Normal 32.0-36.0 [facility] Comment on above: Order Comment: The p reviously reported component Neutrophils % is no longer being reported.The previously reported component Lymphocytes % is no longer being reported.The previously reported component Monocytes % is no longer being reported.The previously reported component Eosinophils % is no longer being reported.The previously reported component Basophils % is no longer being reported.The previously reported component Absolute Neutrophils is no longer being reported.The previously reported component Absolute Lymphocytes is no longer being reported.The previously reported component Absolute Monocytes is no longer being reported.The previously reported component Absolute Eosinophils is no longer being reported.The previously reported component Absolute Basophils is no longer being reported. Performed By: #### 5 7021-8 ####AYDEE Bruce ([id number])[facility] ([facility])[address] [place] [address] MCV (RBC) [Entitic vol] 92 fL Normal 80-100 [facility] Comment on above: Order Comment: The p reviously reported component Neutrophils % is no longer being reported.The previously reported component Lymphocytes % is no longer being reported.The previously reported component Monocytes % is no longer being reported.The previously reported component Eosinophils % is no longer being reported.The previously reported component Basophils % is no longer being reported.The previously reported component Absolute Neutrophils is no longer being reported.The previously reported component Absolute Lymphocytes is no longer being reported.The previously reported component Absolute Monocytes is no longer being reported.The previously reported component Absolute Eosinophils is no longer being reported.The previously reported component Absolute Basophils is no longer being reported. Performed By: #### 5 7021-8 ####AYDEE Bruce ([id number])[facility] ([facility])[address] [place] [address] Nucleated RBC/100 WBC (Bld) [Ratio] 0.0 /100 WBCs Normal 0.0-0.0 [facility] Comment on above: Order Comment: The p reviously reported component Neutrophils % is no longer being reported.The previously reported component Lymphocytes % is no longer being reported.The previously reported component Monocytes % is no longer being reported.The previously reported component Eosinophils % is no longer being reported.The previously reported component Basophils % is no longer being reported.The previously reported component Absolute Neutrophils is no longer being reported.The previously reported component Absolute Lymphocytes is no longer being reported.The previously reported component Absolute Monocytes is no longer being reported.The previously reported component Absolute Eosinophils is no longer being reported.The previously reported component Absolute Basophils is no longer being reported. Performed By: #### 5 7021-8 ####AYDEE Bruce ([id number])[facility] ([facility])[address] [place] [address] Platelets (Bld) [#/Vol] 314 x10*3/uL Normal 150-450 [facility] Comment on above: Order Comment: The p reviously reported component Neutrophils % is no longer being reported.The previously reported component Lymphocytes % is no longer being reported.The previously reported component Monocytes % is no longer being reported.The previously reported component Eosinophils % is no longer being reported.The previously reported component Basophils % is no longer being reported.The previously reported component Absolute Neutrophils is no longer being reported.The previously reported component Absolute Lymphocytes is no longer being reported.The previously reported component Absolute Monocytes is no longer being reported.The previously reported component Absolute Eosinophils is no longer being reported.The previously reported component Absolute Basophils is no longer being reported. Performed By: #### 5 7021-8 ####AYDEE Bruce ([id number])[facility] ([facility])[address] [place] [address] RBC (Bld) [#/Vol] 2.80 x10*6/uL Low 4.00-5.20 [facility] Comment on above: Order Comment: The p reviously reported component Neutrophils % is no longer being reported.The previously reported component Lymphocytes % is no longer being reported.The previously reported component Monocytes % is no longer being reported.The previously reported component Eosinophils % is no longer being reported.The previously reported component Basophils % is no longer being reported.The previously reported component Absolute Neutrophils is no longer being reported.The previously reported component Absolute Lymphocytes is no longer being reported.The previously reported component Absolute Monocytes is no longer being reported.The previously reported component Absolute Eosinophils is no longer being reported.The previously reported component Absolute Basophils is no longer being reported. Performed By: #### 5 7021-8 ####AYDEE CAMILOMOGILBERTOER L ([id number])[facility] ([facility])[address] [place] [address] WBC (Bld) [#/Vol] 8.1 x10*3/uL Normal 4.4-11.3 [facility] Comment on above: Order Comment: The p reviously reported component Neutrophils % is no longer being reported.The previously reported component Lymphocytes % is no longer being reported.The previously reported component Monocytes % is no longer being reported.The previously reported component Eosinophils % is no longer being reported.The previously reported component Basophils % is no longer being reported.The previously reported component Absolute Neutrophils is no longer being reported.The previously reported component Absolute Lymphocytes is no longer being reported.The previously reported component Absolute Monocytes is no longer being reported.The previously reported component Absolute Eosinophils is no longer being reported.The previously reported component Absolute Basophils is no longer being reported. Performed By: #### 5 7021-8 ####AYDEE Bruce ([id number])[facility] ([facility])[address] [place] [address] CT ABDOMEN PELVIS WO IV CONT RASTon 10-15-2024 CT ABDOMEN PELVIS WO IV CONTRAST Normal [facility] Glucose Test strip manual (B ld) [Mass/Vol]on 10-15-2024 Glucose [Mass/Vol] 102 mg/dL High 74-99 [facility] Comment on above: Performed By: #### 2 341-6 ####AYDEE Bruce ([id number])[facility] ([facility])[address] [place] [address] Glucose [Mass/Vol] 121 mg/dL High 74-99 [facility] Comment on above: Performed By: #### 2 341-6 ####AYDEE Bruce ([id number])[facility] ([facility])[address] [place] [address] Heparin.unfractionatedon Heparin unfractionated Chromogenic method Qn (PPP) 0.3 IU/mL Normal See Comment Below for Therapeutic Ranges [facility] Comment on above: Order Comment: Obtai n 4 hours after any Heparin dosage change. Nursing to release order.The therapeutic reference range for UFH may be either 0.3-0.6 IU/mL or 0.3-0.7 IU/mL based on the clinical setting for anticoagulant therapy and the associated nomogram used. For Heparin dosing guidelines based on clinical scenario and Heparin Assay results, please refer to local Pharmacy and the [facility] Guidelines for Anticoagulation Therapy available on the [facility] intranet at: [email or web address] Performed By: #### 3 274-8 ####AYDEE Bruce ([id number])[facility] ([facility])[address] [place] [address] Hepatic function 2000 panelo n 10-15-2024 Albumin BCP dye [Mass/Vol] 3.0 g/dL Low 3.4-5.0 [facility] Comment on above: Performed By: #### 2 4325-3 ####AYDEE Bruce ([id number])[facility] ([facility])[address] [place] [address] ALP [Catalytic activity/Vol] 249 U/L High 33-136 [facility] Comment on above: Performed By: #### 2 4325-3 ####AYDEE Bruce ([id number])[facility] ([facility])[address] [place] [address] ALT With P-5'-P [Catalytic activity/Vol] 23 U/L Normal 7-45 [facility] Comment on above: Result Comment: Susan ents treated with Sulfasalazine may generate falsely decreased results for ALT. Performed By: #### 2 4325-3 ####AYDEE Bruce ([id number])[facility] ([facility])[address] [place] [address] AST With P-5'-P [Catalytic activity/Vol] 25 U/L Normal 9-39 [facility] Comment on above: Performed By: #### 2 4325-3 ####AYDEE Bruce ([id number])[facility] ([facility])[address] [place] [address] Bilirubin [Mass/Vol] 1.4 mg/dL High 0.0-1.2 [facility] Comment on above: Performed By: #### 2 4325-3 ####AYDEE Bruce ([id number])[facility] ([facility])[address] [place] [address] Bilirubin.direct [Mass/Vol] 0.5 mg/dL High 0.0-0.3 [facility] Comment on above: Performed By: #### 2 4325-3 ####AYDEE Bruce ([id number])[facility] ([facility])[address] [place] [address] Protein [Mass/Vol] 6.0 g/dL Low 6.4-8.2 [facility] Comment on above: Performed By: #### 2 4325-3 ####AYDEE Bruce ([id number])[facility] ([facility])[address] [place] [address] Magnesiumon 10-15-2024 Magnesium [Mass/Vol] 2.17 mg/dL Normal 1.60-2.40 [facility] Comment on above: Performed By: #### 1 9123-9 ####AYDEE Bruce ([id number])[facility] ([facility])[address] [place] [address] Manual differential performe d Ql (Bld)on 10-15-2024 Band form neutrophils (Bld) [#/Vol] 1.22 x10*3/uL High 0.00-0.70 [facility] Comment on above: Performed By: #### 5 0957-0 ####AYDEE Bruce ([id number])[facility] ([facility])[address] [place] [address] Band form neutrophils/100 WBC (Bld) 15.0 % Normal 0.0-5.0 [facility] Comment on above: Performed By: #### 5 0957-0 ####AYDEE Bruce ([id number])[facility] ([facility])[address] [place] [address] Basophils (Bld) [#/Vol] 0.15 x10*3/uL High 0.00-0.10 [facility] Comment on above: Performed By: #### 5 0957-0 ####AYDEE Bruce ([id number])[facility] ([facility])[address] [place] [address] Basophils/100 WBC (Bld) 1.8 % Normal 0.0-2.0 [facility] Comment on above: Performed By: #### 5 0957-0 ####AYDEE Bruce ([id number])[facility] ([facility])[address] [place] [address] Blasts Manual cnt (Bld) [#/Vol] 0.00 x10*3/uL Normal 0.00-0.00 [facility] Comment on above: Performed By: #### 5 0957-0 ####AYDEE Bruce ([id number])[facility] ([facility])[address] [place] [address] Blasts/100 WBC (Bld) 0.0 % Normal 0.0-0.0 [facility] Comment on above: Performed By: #### 5 57-0 ####AYDEE Bruce ([id number])[facility] ([facility])[address] [place] [address] Nory cells LM Ql (Bld) Few [facility] Comment on above: Performed By: #### 5 57-0 ####AYDEE Bruce ([id number])[facility] ([facility])[address] [place] [address] Cells Counted Total (Bld) [#] 113 Normal [facility] Comment on above: Performed By: #### 5 57-0 ####AYDEE Bruce ([id number])[facility] ([facility])[address] [place] [address] Eosinophils (Bld) [#/Vol] 1.79 x10*3/uL High 0.00-0.70 [facility] Comment on above: Performed By: #### 5 0957-0 ####AYDEE Bruce ([id number])[facility] ([facility])[address] [place] [address] Eosinophils/100 WBC (Bld) 22.1 % Normal 0.0-6.0 [facility] Comment on above: Performed By: #### 5 0957-0 ####AYDEE Bruce ([id number])[facility] ([facility])[address] [place] [address] Lymphocytes (Bld) [#/Vol] 1.65 x10*3/uL Normal 1.20-4.80 [facility] Comment on above: Performed By: #### 5 57-0 ####AYDEE Bruce ([id number])[facility] ([facility])[address] [place] [address] Lymphocytes/100 WBC (Bld) 20.4 % Normal 13.0-44.0 [facility] Comment on above: Performed By: #### 5 57-0 ####AYDEE Bruce ([id number])[facility] ([facility])[address] [place] [address] Metamyelocytes (Bld) [#/Vol] 0.00 x10*3/uL Normal 0.00-0.00 [facility] Comment on above: Performed By: #### 5 57-0 ####AYDEE Bruce ([id number])[facility] ([facility])[address] [place] [address] Metamyelocytes/100 WBC (Bld) 0.0 % Normal 0.0-0.0 [facility] Comment on above: Performed By: #### 5 57-0 ####AYDEE Bruce ([id number])[facility] ([facility])[address] [place] [address] Monocytes (Bld) [#/Vol] 0.50 x10*3/uL Normal 0.10-1.00 [facility] Comment on above: Performed By: #### 5 57-0 ####AYDEE Bruce ([id number])[facility] ([facility])[address] [place] [address] Monocytes/100 WBC (Bld) 6.2 % Normal 2.0-10.0 [facility] Comment on above: Performed By: #### 5 57-0 ####AYDEE Bruce ([id number])[facility] ([facility])[address] [place] [address] Myelocytes (Bld) [#/Vol] 0.00 x10*3/uL Normal 0.00-0.00 [facility] Comment on above: Performed By: #### 5 57-0 ####AYDEE Bruce ([id number])[facility] ([facility])[address] [place] [address] Myelocytes/100 WBC (Bld) 0.0 % Normal 0.0-0.0 [facility] Comment on above: Performed By: #### 5 57-0 ####AYDEE Bruce ([id number])[facility] ([facility])[address] [place] [address] Neutrophils (Bld) [#/Vol] 3.94 x10*3/uL Normal 1.20-7.70 [facility] Comment on above: Performed By: #### 5 57-0 ####AYDEE Bruce ([id number])[facility] ([facility])[address] [place] [address] Nucleated RBC/100 WBC (Bld) [Ratio] 0.0 % Normal 0.0-0.0 [facility] Comment on above: Performed By: #### 5 57-0 ####AYDEE Bruce ([id number])[facility] ([facility])[address] [place] [address] Plasma cells (Bld) [#/Vol] 0.00 x10*3/uL Normal 0.00-0.00 [facility] Comment on above: Performed By: #### 5 57-0 ####AYDEE Bruce ([id number])[facility] ([facility])[address] [place] [address] Plasma cells/100 WBC Manual cnt (Bld) 0.0 % Normal 0.00-0.00 [facility] Comment on above: Performed By: #### 5 57-0 ####AYDEE Bruce ([id number])[facility] ([facility])[address] [place] [address] Polychromasia LM Ql (Bld) Marked Normal [facility] Comment on above: Performed By: #### 5 0957-0 ####AYDEE Bruce ([id number])[facility] ([facility])[address] [place] [address] Promyelocytes (Bld) [#/Vol] 0.00 x10*3/uL Normal 0.00-0.00 [facility] Comment on above: Performed By: #### 5 0957-0 ####AYDEE Bruce ([id number])[facility] ([facility])[address] [place] [address] Promyelocytes/100 WBC (Bld) 0.0 % Normal 0.0-0.0 [facility] Comment on above: Performed By: #### 5 0957-0 ####AYDEE Bruce ([id number])[facility] ([facility])[address] [place] [address] RBC morphology finding Nom (Bld) See Below [facility] Comment on above: Performed By: #### 5 0957-0 ####AYDEE Bruce ([id number])[facility] ([facility])[address] [place] [address] Segmented neutrophils (Bld) [#/Vol] 2.72 x10*3/uL Normal 1.20-7.00 [facility] Comment on above: Performed By: #### 5 0957-0 ####AYDEE Bruce ([id number])[facility] ([facility])[address] [place] [address] Segmented neutrophils/100 WBC (Bld) 33.6 % Normal 40.0-80.0 [facility] Comment on above: Result Comment: Perc ent differential counts (%) should be interpreted in the context of the absolute cell counts (cells/uL). Performed By: #### 5 0957-0 ####AYDEE Bruce ([id number])[facility] ([facility])[address] [place] [address] Variant lymphocytes (Bld) [#/Vol] 0.07 x10*3/uL Normal 0.00-0.50 [facility] Comment on above: Performed By: #### 5 0957-0 ####AYDEE Bruce ([id number])[facility] ([facility])[address] [place] [address] Variant lymphocytes/100 WBC (Bld) 0.9 % Normal 0.0-2.0 [facility] Comment on above: Performed By: #### 5 0957-0 ####AYDEE Bruce ([id number])[facility] ([facility])[address] [place] [address] WBC other Manual cnt (Bld) [#/Vol] 0.00 x10*3/uL Normal [facility] Comment on above: Performed By: #### 5 0957-0 ####AYDEE Bruce ([id number])[facility] ([facility])[address] [place] [address] WBC other/100 WBC (Bld) 0.0 % Normal [facility] Comment on above: Performed By: #### 5 0957-0 ####AYDEE Bruce ([id number])[facility] ([facility])[address] [place] [address] Observationon 10-15-2024 Osmolality [Osmolality] 292 mosm/kg Normal 280-300 [facility] Comment on above: Performed By: #### 2 692-2 ####AYDEE Bruce ([id number])[facility] ([facility])[address] [place] [address] Phosphateon 10-15-2024 Phosphate [Mass/Vol] 4.1 mg/dL Normal 2.5-4.9 [facility] Comment on above: Performed By: #### 2 777-1 ####AYDEE Bruce ([id number])[facility] ([facility])[address] [place] [address] XR ABDOMEN 1 VIEWon 10-16-19 25 XR ABDOMEN 1 VIEW Normal [facility] Basic metabolic 2000 panelon 10-14-2024 Anion gap [Moles/Vol] 16 mmol/L Normal 10-20 [facility] Comment on above: Performed By: #### 2 4321-2 ####AYDEE ZHONGER L ([id number])[facility] ([facility])[address] [place] [address] Calcium [Mass/Vol] 8.7 mg/dL Normal 8.6-10.6 [facility] Comment on above: Performed By: #### 2 4321-2 ####AYDEE CAMILOMOTZER L ([id number])[facility] ([facility])[address] [place] [address] Chloride [Moles/Vol] 90 mmol/L Low 98-107 [facility] Comment on above: Performed By: #### 2 4321-2 ####AYDEE CAMILOMOTZER L ([id number])[facility] ([facility])[address] [place] [address] CO2 [Moles/Vol] 26 mmol/L Normal 21-32 [facility] Comment on above: Performed By: #### 2 4321-2 ####AYDEE CAMILOMOTZER L ([id number])[facility] ([facility])[address] [place] [address] Creatinine [Mass/Vol] 2.79 mg/dL High 0.50-1.05 [facility] Comment on above: Performed By: #### 2 4321-2 ####AYDEE CAMILOMOTZER L ([id number])[facility] ([facility])[address] [place] [address] Glomerular filtration rate 18 mL/min/1.73m*2 Low >60 [facility] Comment on above: Result Comment: Calc ulations of estimated GFR are performed using the 2020 CKD-EPI Study Refit equation without the race variable for the IDMS-Traceable creatinine methods.https://jasn.asnjournals.org/content/early/ N.7472118593 Performed By: #### 2 4321-2 ####AYDEE Bruce ([id number])[facility] ([facility])[address] [place] [address] Glucose [Mass/Vol] 124 mg/dL High 74-99 [facility] Comment on above: Performed By: #### 2 4321-2 ####AYDEE Bruce ([id number])[facility] ([facility])[address] [place] [address] Potassium [Moles/Vol] 4.4 mmol/L Normal 3.5-5.3 [facility] Comment on above: Performed By: #### 2 4321-2 ####AYDEE Bruce ([id number])[facility] ([facility])[address] [place] [address] Sodium [Moles/Vol] 128 mmol/L Low 136-145 [facility] Comment on above: Performed By: #### 2 4321-2 ####AYDEE Bruce ([id number])[facility] ([facility])[address] [place] [address] Urea nitrogen [Mass/Vol] 57 mg/dL High 6-23 [facility] Comment on above: Performed By: #### 2 4321-2 ####AYDEE Bruce ([id number])[facility] ([facility])[address] [place] [address] CBC W Auto Differential pane l (Bld)on 10-14-2024 Basophils (Bld) [#/Vol] 0.10 x10*3/uL Normal 0.00-0.10 [facility] Comment on above: Performed By: #### 5 7021-8 ####AYDEE Bruce ([id number])[facility] ([facility])[address] [place] [address] Basophils/100 WBC (Bld) 1.2 % Normal 0.0-2.0 [facility] Comment on above: Performed By: #### 5 7021-8 ####AYDEE Bruce ([id number])[facility] ([facility])[address] [place] [address] Eosinophils (Bld) [#/Vol] 1.40 x10*3/uL High 0.00-0.70 [facility] Comment on above: Performed By: #### 5 7021-8 ####AYDEE Bruce ([id number])[facility] ([facility])[address] [place] [address] Eosinophils/100 WBC (Bld) 16.8 % Normal 0.0-6.0 [facility] Comment on above: Performed By: #### 5 7021-8 ####AYDEE Bruce ([id number])[facility] ([facility])[id number] [place] [address] Erythrocyte distribution width (RBC) [Ratio] 16.9 % High 11.5-14.5 [facility] Comment on above: Performed By: #### 5 7021-8 ####AYDEE Bruce ([id number])[facility] ([facility])[id number] [place] [address] Hematocrit (Bld) [Volume fraction] 25.2 % Low 36.0-46.0 [facility] Comment on above: Performed By: #### 5 7021-8 ####AYDEE Bruce ([id number])[facility] ([facility])[address] [place] [address] Hemoglobin (Bld) [Mass/Vol] 8.3 g/dL Low 12.0-16.0 [facility] Comment on above: Performed By: #### 5 7021-8 ####AYDEE Bruce ([id number])[facility] ([facility])[address] [place] [address] Immature granulocytes (Bld) [#/Vol] 0.09 x10*3/uL Normal 0.00-0.70 [facility] Comment on above: Performed By: #### 5 7021-8 ####AYDEE Bruce ([id number])[facility] ([facility])[address] [place] [address] Immature granulocytes/100 WBC (Bld) 1.1 % High 0.0-0.9 [facility] Comment on above: Result Comment: Doris ture Granulocyte Count (IG) includes promyelocytes, myelocytes and metamyelocytes but does not include bands. Percent differential counts (%) should be interpreted in the context of the absolute cell counts (cells/UL). Performed By: #### 5 7021-8 ####AYDEE Bruce ([id number])[facility] ([facility])[address] [place] [address] Lymphocytes (Bld) [#/Vol] 1.42 x10*3/uL Normal 1.20-4.80 [facility] Comment on above: Performed By: #### 5 7021-8 ####AYDEE Bruce ([id number])[facility] ([facility])[address] [place] [address] Lymphocytes/100 WBC (Bld) 17.0 % Normal 13.0-44.0 [facility] Comment on above: Performed By: #### 5 7021-8 ####AYDEE Bruce ([id number])[facility] ([facility])[address] [place] [address] MCH (RBC) [Entitic mass] 30.2 pg Normal 26.0-34.0 [facility] Comment on above: Performed By: #### 5 7021-8 ####AYDEE Bruce ([id number])[facility] ([facility])[address] [place] [address] MCHC (RBC) [Mass/Vol] 32.9 g/dL Normal 32.0-36.0 [facility] Comment on above: Performed By: #### 5 7021-8 ####AYDEE Bruce ([id number])[facility] ([facility])[address] [place] [address] MCV (RBC) [Entitic vol] 92 fL Normal 80-100 [facility] Comment on above: Performed By: #### 5 7021-8 ####AYDEE Bruce ([id number])[facility] ([facility])[address] [place] [address] Monocytes (Bld) [#/Vol] 0.85 x10*3/uL Normal 0.10-1.00 [facility] Comment on above: Performed By: #### 5 7021-8 ####AYDEE Bruce ([id number])[facility] ([facility])[address] [place] [address] Monocytes/100 WBC (Bld) 10.2 % Normal 2.0-10.0 [facility] Comment on above: Performed By: #### 5 7021-8 ####AYDEE Bruce ([id number])[facility] ([facility])[address] [place] [address] Neutrophils (Bld) [#/Vol] 4.49 x10*3/uL Normal 1.20-7.70 [facility] Comment on above: Result Comment: Perc ent differential counts (%) should be interpreted in the context of the absolute cell counts (cells/uL). Performed By: #### 5 7021-8 ####AYDEE Bruce ([id number])[facility] ([facility])[address] [place] [address] Neutrophils/100 WBC (Bld) 53.7 % Normal 40.0-80.0 [facility] Comment on above: Performed By: #### 5 7021-8 ####AYDEE Bruce ([id number])[facility] ([facility])[address] [place] [address] Nucleated RBC/100 WBC (Bld) [Ratio] 0.2 /100 WBCs High 0.0-0.0 [facility] Comment on above: Performed By: #### 5 7021-8 ####AYDEE Bruce ([id number])[facility] ([facility])[address] [place] [address] Platelets (Bld) [#/Vol] 287 x10*3/uL Normal 150-450 [facility] Comment on above: Performed By: #### 5 7021-8 ####AYDEE Bruce ([id number])[facility] ([facility])[address] [place] [address] RBC (Bld) [#/Vol] 2.75 x10*6/uL Low 4.00-5.20 [facility] Comment on above: Performed By: #### 5 7021-8 ####AYDEE Bruce ([id number])[facility] ([facility])[address] [place] [address] WBC (Bld) [#/Vol] 8.4 x10*3/uL Normal 4.4-11.3 [facility] Comment on above: Performed By: #### 5 7021-8 ####AYDEE Bruce ([id number])[facility] ([facility])[address] [place] [address] Cortisol^AM peak specimenon 10-14-2024 Cortisol AM peak specimen [Mass/Vol] 28.2 ug/dL High 5.0-20.0 [facility] Comment on above: Performed By: #### 9 813-7 ####AYDEE Bruce ([id number])[facility] ([facility])[address] [place] [address] Glucose Test strip manual (B ld) [Mass/Vol]on 10-14-2024 Glucose [Mass/Vol] 118 mg/dL High 74-99 [facility] Comment on above: Performed By: #### 2 341-6 ####AYDEE Bruce ([id number])[facility] ([facility])[address] [place] [address] Glucose [Mass/Vol] 109 mg/dL High 74-99 [facility] Comment on above: Performed By: #### 2 341-6 ####AYDEE Bruce ([id number])[facility] ([facility])[address] [place] [address] Glucose [Mass/Vol] 125 mg/dL High 74-99 [facility] Comment on above: Performed By: #### 2 341-6 ####AYDEE Bruce ([id number])[facility] ([facility])[address] [place] [address] Glucose [Mass/Vol] 127 mg/dL High 74-99 [facility] Comment on above: Performed By: #### 2 341-6 ####AYDEE Bruce ([id number])[facility] ([facility])[address] [place] [address] Glucose [Mass/Vol] 128 mg/dL High 74-99 [facility] Comment on above: Performed By: #### 2 341-6 ####AYDEE Bruce ([id number])[facility] ([facility])[address] [place] [address] Heparin.unfractionatedon Heparin unfractionated Chromogenic method Qn (PPP) 0.3 IU/mL Normal See Comment Below for Therapeutic Ranges [facility] Comment on above: Order Comment: Obtai n 4 hours after any Heparin dosage change. Nursing to release order.The therapeutic reference range for UFH may be either 0.3-0.6 IU/mL or 0.3-0.7 IU/mL based on the clinical setting for anticoagulant therapy and the associated nomogram used. For Heparin dosing guidelines based on clinical scenario and Heparin Assay results, please refer to local Pharmacy and the [facility] Guidelines for Anticoagulation Therapy available on the [facility] intranet at: [email or web address] Performed By: #### 3 274-8 ####AYDEE Bruce ([id number])[facility] ([facility])[address] [place] [address] Hepatic function 2000 panelo n 10-14-2024 Albumin BCP dye [Mass/Vol] 2.8 g/dL Low 3.4-5.0 [facility] Comment on above: Performed By: #### 2 4325-3 ####AYDEE Bruce ([id number])[facility] ([facility])[address]175 [place] [address] ALP [Catalytic activity/Vol] 270 U/L High 33-136 [facility] Comment on above: Performed By: #### 2 4325-3 ####AYDEE Bruce ([id number])[facility] ([facility])[address] [place] [address] ALT With P-5'-P [Catalytic activity/Vol] 25 U/L Normal 7-45 [facility] Comment on above: Result Comment: Susan ents treated with Sulfasalazine may generate falsely decreased results for ALT. Performed By: #### 2 4325-3 ####AYDEE Bruce ([id number])[facility] ([facility])[address] [place] [address] AST With P-5'-P [Catalytic activity/Vol] 27 U/L Normal 9-39 [facility] Comment on above: Performed By: #### 2 4325-3 ####AYDEE Bruce ([id number])[facility] ([facility])[address] [place] [address] Bilirubin [Mass/Vol] 1.5 mg/dL High 0.0-1.2 [facility] Comment on above: Performed By: #### 2 4325-3 ####AYDEE Bruce ([id number])[facility] ([facility])[address] [place] [address] Bilirubin.direct [Mass/Vol] 0.5 mg/dL High 0.0-0.3 [facility] Comment on above: Performed By: #### 2 4325-3 ####AYDEE Bruce ([id number])[facility] ([facility])[address] [place] [address] Protein [Mass/Vol] 5.4 g/dL Low 6.4-8.2 [facility] Comment on above: Performed By: #### 2 4325-3 ####AYDEE Bruce ([id number])[facility] ([facility])[address] [place] [address] MR CARDIAC MORPHOLOGY AND FU NCTION W AND WO IV CONTRASTon 10-14-2024 MR CARDIAC MORPHOLOGY AND FUNCTION W AND WO IV CONTRAST Normal [facility] Magnesiumon 10-14-2024 Magnesium [Mass/Vol] 2.18 mg/dL Normal 1.60-2.40 [facility] Comment on above: Performed By: #### 1 9123-9 ####AYDEE Bruce ([id number])[facility] ([facility])[address]64 [place] [address] Observationon 10-14-2024 Osmolality [Osmolality] 285 mosm/kg Normal 280-300 [facility] Comment on above: Performed By: #### 2 692-2 ####AYDEE Bruce ([id number])[facility] ([facility])[address] [place] [address] Phosphateon 10-14-2024 Phosphate [Mass/Vol] 3.3 mg/dL Normal 2.5-4.9 [facility] Comment on above: Performed By: #### 2 777-1 ####AYDEE Bruce ([id number])[facility] ([facility])[address] [place] [address] US RIGHT UPPER QUADRANTon US RIGHT UPPER QUADRANT Normal [facility] Basic metabolic 2000 panelon 10-13-2024 Anion gap [Moles/Vol] 12 mmol/L Normal 10-20 [facility] Comment on above: Performed By: #### 2 4321-2 ####AYDEE Bruce ([id number])[facility] ([facility])[address]383 [place] [address] Calcium [Mass/Vol] 8.0 mg/dL Low 8.6-10.6 [facility] Comment on above: Performed By: #### 2 4321-2 ####AYDEE Bruce ([id number])[facility] ([facility])[address]99 [place] [address] Chloride [Moles/Vol] 93 mmol/L Low 98-107 [facility] Comment on above: Performed By: #### 2 4321-2 ####AYDEE Bruce ([id number])[facility] ([facility])[address] [place] [address] CO2 [Moles/Vol] 28 mmol/L Normal 21-32 [facility] Comment on above: Performed By: #### 2 4321-2 ####AYDEE BAZZI L ([id number])[facility] ([facility])[address] [place] [address] Creatinine [Mass/Vol] 1.93 mg/dL High 0.50-1.05 [facility] Comment on above: Performed By: #### 2 4321-2 ####AYDEE BAZZI L (92814)[facility] ([facility])[address] [place] [address] Glomerular filtration rate 28 mL/min/1.73m*2 Low >60 [facility] Comment on above: Result Comment: Calc ulations of estimated GFR are performed using the 2020 CKD-EPI Study Refit equation without the race variable for the IDMS-Traceable creatinine methods.https://jasn.asnjournals.org/content/early/ N.4416877799 Performed By: #### 2 4321-2 ####AYDEE Bruce ([id number])[facility] ([facility])[address]48 [place] [address] Glucose [Mass/Vol] 113 mg/dL High 74-99 [facility] Comment on above: Performed By: #### 2 4321-2 ####AYDEE BAZZI L ([id number])[facility] ([facility])[address] [place] [address] Potassium [Moles/Vol] 4.2 mmol/L Normal 3.5-5.3 [facility] Comment on above: Performed By: #### 2 4321-2 ####AYDEE BAZZI L ([id number])[facility] ([facility])[address] [place] [address] Sodium [Moles/Vol] 129 mmol/L Low 136-145 [facility] Comment on above: Performed By: #### 2 4321-2 ####AYDEE Bruce ([id number])[facility] ([facility])[address] [place] [address] Urea nitrogen [Mass/Vol] 43 mg/dL High 6-23 [facility] Comment on above: Performed By: #### 2 4321-2 ####AYDEE Bruce ([id number])[facility] ([facility])[address] [place] [address] CBC W Auto Differential pane l (d)on 10-13-2024 Erythrocyte distribution width (RBC) [Ratio] 17.5 % High 11.5-14.5 [facility] Comment on above: Order Comment: The p reviously reported component Neutrophils % is no longer being reported.The previously reported component Lymphocytes % is no longer being reported.The previously reported component Monocytes % is no longer being reported.The previously reported component Eosinophils % is no longer being reported.The previously reported component Basophils % is no longer being reported.The previously reported component Absolute Neutrophils is no longer being reported.The previously reported component Absolute Lymphocytes is no longer being reported.The previously reported component Absolute Monocytes is no longer being reported.The previously reported component Absolute Eosinophils is no longer being reported.The previously reported component Absolute Basophils is no longer being reported. Performed By: #### 5 7021-8 ####AYDEE Bruce ([id number])[facility] ([facility])[address] [place] [address] Hematocrit (Bld) [Volume fraction] 27.2 % Low 36.0-46.0 [facility] Comment on above: Order Comment: The p reviously reported component Neutrophils % is no longer being reported.The previously reported component Lymphocytes % is no longer being reported.The previously reported component Monocytes % is no longer being reported.The previously reported component Eosinophils % is no longer being reported.The previously reported component Basophils % is no longer being reported.The previously reported component Absolute Neutrophils is no longer being reported.The previously reported component Absolute Lymphocytes is no longer being reported.The previously reported component Absolute Monocytes is no longer being reported.The previously reported component Absolute Eosinophils is no longer being reported.The previously reported component Absolute Basophils is no longer being reported. Performed By: #### 5 7021-8 ####AYDEE Bruce ([id number])[facility] ([facility])[address] [place] [address] Hemoglobin (Bld) [Mass/Vol] 8.0 g/dL Low 12.0-16.0 [facility] Comment on above: Order Comment: The p reviously reported component Neutrophils % is no longer being reported.The previously reported component Lymphocytes % is no longer being reported.The previously reported component Monocytes % is no longer being reported.The previously reported component Eosinophils % is no longer being reported.The previously reported component Basophils % is no longer being reported.The previously reported component Absolute Neutrophils is no longer being reported.The previously reported component Absolute Lymphocytes is no longer being reported.The previously reported component Absolute Monocytes is no longer being reported.The previously reported component Absolute Eosinophils is no longer being reported.The previously reported component Absolute Basophils is no longer being reported. Performed By: #### 5 7021-8 ####AYDEE Bruce ([id number])[facility] ([facility])[address] [place] [address] Immature granulocytes (Bld) [#/Vol] 0.07 x10*3/uL Normal 0.00-0.70 [facility] Comment on above: Order Comment: The p reviously reported component Neutrophils % is no longer being reported.The previously reported component Lymphocytes % is no longer being reported.The previously reported component Monocytes % is no longer being reported.The previously reported component Eosinophils % is no longer being reported.The previously reported component Basophils % is no longer being reported.The previously reported component Absolute Neutrophils is no longer being reported.The previously reported component Absolute Lymphocytes is no longer being reported.The previously reported component Absolute Monocytes is no longer being reported.The previously reported component Absolute Eosinophils is no longer being reported.The previously reported component Absolute Basophils is no longer being reported. Performed By: #### 5 7021-8 ####AYDEE Bruce ([id number])[facility] ([facility])[address]134 [place] [address] Immature granulocytes/100 WBC (Bld) 0.8 % Normal 0.0-0.9 [facility] Comment on above: Order Comment: The p reviously reported component Neutrophils % is no longer being reported.The previously reported component Lymphocytes % is no longer being reported.The previously reported component Monocytes % is no longer being reported.The previously reported component Eosinophils % is no longer being reported.The previously reported component Basophils % is no longer being reported.The previously reported component Absolute Neutrophils is no longer being reported.The previously reported component Absolute Lymphocytes is no longer being reported.The previously reported component Absolute Monocytes is no longer being reported.The previously reported component Absolute Eosinophils is no longer being reported.The previously reported component Absolute Basophils is no longer being reported. Result Comment: Doris ture Granulocyte Count (IG) includes promyelocytes, myelocytes and metamyelocytes but does not include bands. Percent differential counts (%) should be interpreted in the context of the absolute cell counts (cells/UL). Performed By: #### 5 7021-8 ####AYDEE Bruce ([id number])[facility] ([facility])[address]67 [place] [address] MCH (RBC) [Entitic mass] 30.1 pg Normal 26.0-34.0 [facility] Comment on above: Order Comment: The p reviously reported component Neutrophils % is no longer being reported.The previously reported component Lymphocytes % is no longer being reported.The previously reported component Monocytes % is no longer being reported.The previously reported component Eosinophils % is no longer being reported.The previously reported component Basophils % is no longer being reported.The previously reported component Absolute Neutrophils is no longer being reported.The previously reported component Absolute Lymphocytes is no longer being reported.The previously reported component Absolute Monocytes is no longer being reported.The previously reported component Absolute Eosinophils is no longer being reported.The previously reported component Absolute Basophils is no longer being reported. Performed By: #### 5 7021-8 ####AYDEE Bruce ([id number])[facility] ([facility])[address] [place] [address] MCHC (RBC) [Mass/Vol] 29.4 g/dL Low 32.0-36.0 [facility] Comment on above: Order Comment: The p reviously reported component Neutrophils % is no longer being reported.The previously reported component Lymphocytes % is no longer being reported.The previously reported component Monocytes % is no longer being reported.The previously reported component Eosinophils % is no longer being reported.The previously reported component Basophils % is no longer being reported.The previously reported component Absolute Neutrophils is no longer being reported.The previously reported component Absolute Lymphocytes is no longer being reported.The previously reported component Absolute Monocytes is no longer being reported.The previously reported component Absolute Eosinophils is no longer being reported.The previously reported component Absolute Basophils is no longer being reported. Performed By: #### 5 7021-8 ####AYDEE VALDEZTZER L ([id number])[facility] ([facility])[address] [place] [address] MCV (RBC) [Entitic vol] 102 fL High 80-100 [facility] Comment on above: Order Comment: The p reviously reported component Neutrophils % is no longer being reported.The previously reported component Lymphocytes % is no longer being reported.The previously reported component Monocytes % is no longer being reported.The previously reported component Eosinophils % is no longer being reported.The previously reported component Basophils % is no longer being reported.The previously reported component Absolute Neutrophils is no longer being reported.The previously reported component Absolute Lymphocytes is no longer being reported.The previously reported component Absolute Monocytes is no longer being reported.The previously reported component Absolute Eosinophils is no longer being reported.The previously reported component Absolute Basophils is no longer being reported. Performed By: #### 5 7021-8 ####AYDEE BAZZI L ([id number])[facility] ([facility])[address] [place] [address] Nucleated RBC/100 WBC (Bld) [Ratio] 0.0 /100 WBCs Normal 0.0-0.0 [facility] Comment on above: Order Comment: The p reviously reported component Neutrophils % is no longer being reported.The previously reported component Lymphocytes % is no longer being reported.The previously reported component Monocytes % is no longer being reported.The previously reported component Eosinophils % is no longer being reported.The previously reported component Basophils % is no longer being reported.The previously reported component Absolute Neutrophils is no longer being reported.The previously reported component Absolute Lymphocytes is no longer being reported.The previously reported component Absolute Monocytes is no longer being reported.The previously reported component Absolute Eosinophils is no longer being reported.The previously reported component Absolute Basophils is no longer being reported. Performed By: #### 5 7021-8 ####AYDEE CAMILOMOTZER L ([id number])[facility] ([facility])[address] [place] [address] Platelets (Bld) [#/Vol] 239 x10*3/uL Normal 150-450 [facility] Comment on above: Order Comment: The p reviously reported component Neutrophils % is no longer being reported.The previously reported component Lymphocytes % is no longer being reported.The previously reported component Monocytes % is no longer being reported.The previously reported component Eosinophils % is no longer being reported.The previously reported component Basophils % is no longer being reported.The previously reported component Absolute Neutrophils is no longer being reported.The previously reported component Absolute Lymphocytes is no longer being reported.The previously reported component Absolute Monocytes is no longer being reported.The previously reported component Absolute Eosinophils is no longer being reported.The previously reported component Absolute Basophils is no longer being reported. Performed By: #### 5 7021-8 ####AYDEE SCHMOTZER L ([id number])[facility] ([facility])[address] [place] [address] RBC (Bld) [#/Vol] 2.66 x10*6/uL Low 4.00-5.20 [facility] Comment on above: Order Comment: The p reviously reported component Neutrophils % is no longer being reported.The previously reported component Lymphocytes % is no longer being reported.The previously reported component Monocytes % is no longer being reported.The previously reported component Eosinophils % is no longer being reported.The previously reported component Basophils % is no longer being reported.The previously reported component Absolute Neutrophils is no longer being reported.The previously reported component Absolute Lymphocytes is no longer being reported.The previously reported component Absolute Monocytes is no longer being reported.The previously reported component Absolute Eosinophils is no longer being reported.The previously reported component Absolute Basophils is no longer being reported. Performed By: #### 5 7021-8 ####AYDEE SCHMOTZER L ([id number])[facility] ([facility])[address] [place] [address] WBC (Bld) [#/Vol] 8.5 x10*3/uL Normal 4.4-11.3 [facility] Comment on above: Order Comment: The p reviously reported component Neutrophils % is no longer being reported.The previously reported component Lymphocytes % is no longer being reported.The previously reported component Monocytes % is no longer being reported.The previously reported component Eosinophils % is no longer being reported.The previously reported component Basophils % is no longer being reported.The previously reported component Absolute Neutrophils is no longer being reported.The previously reported component Absolute Lymphocytes is no longer being reported.The previously reported component Absolute Monocytes is no longer being reported.The previously reported component Absolute Eosinophils is no longer being reported.The previously reported component Absolute Basophils is no longer being reported. Performed By: #### 5 7021-8 ####AYDEE VALDEZTZER L ([id number])[facility] ([facility])[address] [place] [address] Glucose Test strip manual (B ld) [Mass/Vol]on 10-13-2024 Glucose [Mass/Vol] 113 mg/dL High [address] [place] [address] Comment on above: Performed By: #### 2 341-6 ####AYDEE SCHMOTZER L ([id number])[facility] ([facility])[address] [place] [address] Glucose [Mass/Vol] 118 mg/dL High [address] [place] [address] Comment on above: Performed By: #### 2 341-6 ####AYDEE SCHMOTZER L ([id number])[facility] ([facility])[address] [place] [address] Glucose [Mass/Vol] 120 mg/dL High [address] [place] [address] Comment on above: Performed By: #### 2 341-6 ####AYDEE SCHMOTZER L ([id number])[facility] ([facility])[address] [place] [address] Glucose [Mass/Vol] 109 mg/dL High [address] [place] [address] Comment on above: Performed By: #### 2 341-6 ####AYDEE SCHMOTZER L ([id number])[facility] ([facility])[address] [place] [address] Glucose [Mass/Vol] 104 mg/dL High 74-99 [facility] Comment on above: Performed By: #### 2 341-6 ####AYDEE Bruce ([id number])[facility] ([facility])[address] [place] [address] Heparin.unfractionatedon Heparin unfractionated Chromogenic method Qn (PPP) 0.3 IU/mL Normal See Comment Below for Therapeutic Ranges [facility] Comment on above: Order Comment: Obtai n 4 hours after any Heparin dosage change. Nursing to release order.The therapeutic reference range for UFH may be either 0.3-0.6 IU/mL or 0.3-0.7 IU/mL based on the clinical setting for anticoagulant therapy and the associated nomogram used. For Heparin dosing guidelines based on clinical scenario and Heparin Assay results, please refer to local Pharmacy and the [facility] Guidelines for Anticoagulation Therapy available on the [facility] intranet at: [email or web address] Performed By: #### 3 274-8 ####AYDEE Bruce ([id number])[facility] ([facility])[address] [place] [address] Hepatic function 2000 panelo n 10-13-2024 Albumin BCP dye [Mass/Vol] 2.7 g/dL Low 3.4-5.0 [facility] Comment on above: Performed By: #### 2 4325-3 ####AYDEE Bruce ([id number])[facility] ([facility])[address] [place] [address] ALP [Catalytic activity/Vol] 258 U/L High 33-136 [facility] Comment on above: Performed By: #### 2 4325-3 ####AYDEE Bruce ([id number])[facility] ([facility])[address] [place] [address] ALT With P-5'-P [Catalytic activity/Vol] 29 U/L Normal 7-45 [facility] Comment on above: Result Comment: Susan ents treated with Sulfasalazine may generate falsely decreased results for ALT. Performed By: #### 2 4325-3 ####AYDEE Bruce ([id number])[facility] ([facility])[address] [place] [address] AST With P-5'-P [Catalytic activity/Vol] 29 U/L Normal 9-39 [facility] Comment on above: Performed By: #### 2 4325-3 ####AYDEE Bruce ([id number])[facility] ([facility])[address] [place] [address] Bilirubin [Mass/Vol] 1.7 mg/dL High 0.0-1.2 [facility] Comment on above: Performed By: #### 2 4325-3 ####AYDEE Bruce ([id number])[facility] ([facility])[address]165 [place] [address] Bilirubin.direct [Mass/Vol] 0.5 mg/dL High 0.0-0.3 [facility] Comment on above: Performed By: #### 2 4325-3 ####AYDEE Bruce ([id number])[facility] ([facility])[address] [place] [address] Protein [Mass/Vol] 5.0 g/dL Low 6.4-8.2 [facility] Comment on above: Performed By: #### 2 4325-3 ####AYDEE Bruce ([id number])[facility] ([facility])[address] [place] [address] Magnesiumon 10-13-2024 Magnesium [Mass/Vol] 1.99 mg/dL Normal 1.60-2.40 [facility] Comment on above: Performed By: #### 1 9123-9 ####AYDEE Bruce ([id number])[facility] ([facility])[address] [place] [address] Manual differential performe d Ql (Bld)on 10-13-2024 Band form neutrophils (Bld) [#/Vol] 0.00 x10*3/uL Normal 0.00-0.70 [facility] Comment on above: Performed By: #### 5 0957-0 ####AYDEE Bruce ([id number])[facility] ([facility])[address]47 [place] [address] Band form neutrophils/100 WBC (Bld) 0.0 % Normal 0.0-5.0 [facility] Comment on above: Performed By: #### 5 57-0 ####AYDEE Bruce ([id number])[facility] ([facility])[address] [place] [address] Basophils (Bld) [#/Vol] 0.22 x10*3/uL High 0.00-0.10 [facility] Comment on above: Performed By: #### 5 57-0 ####AYDEE Bruce ([id number])[facility] ([facility])[address] [place] [address] Basophils/100 WBC (Bld) 2.6 % Normal 0.0-2.0 [facility] Comment on above: Performed By: #### 5 57-0 ####AYDEE Bruce (19852)[facility] ([facility])[address] [place] [address] Blasts Manual cnt (Bld) [#/Vol] 0.00 x10*3/uL Normal 0.00-0.00 [facility] Comment on above: Performed By: #### 5 57-0 ####AYDEE Bruce ([id number])[facility] ([facility])[address] [place] [address] Blasts/100 WBC (Bld) 0.0 % Normal 0.0-0.0 [facility] Comment on above: Performed By: #### 5 57-0 ####AYDEE Bruce ([id number])[facility] ([facility])[address] [place] [address] Cells Counted Total (Bld) [#] 115 Normal [facility] Comment on above: Performed By: #### 5 57-0 ####AYDEE Bruce ([id number])[facility] ([facility])[address] [place] [address] Eosinophils (Bld) [#/Vol] 0.00 x10*3/uL Normal 0.00-0.70 [facility] Comment on above: Performed By: #### 5 57-0 ####AYDEE BAZZI L ([id number])[facility] ([facility])[address] [place] [address] Eosinophils/100 WBC (Bld) 0.0 % Normal 0.0-6.0 [facility] Comment on above: Performed By: #### 5 57-0 ####AYDEE Bruce ([id number])[facility] ([facility])[address]386 [place] [address] Lymphocytes (Bld) [#/Vol] 0.52 x10*3/uL Low 1.20-4.80 [facility] Comment on above: Performed By: #### 5 57-0 ####AYDEE BAZZI L ([id number])[facility] ([facility])[address] [place] [address] Lymphocytes/100 WBC (Bld) 6.1 % Normal 13.0-44.0 [facility] Comment on above: Performed By: #### 5 57-0 ####AYDEE Bruce ([id number])[facility] ([facility])[address] [place] [address] Metamyelocytes (Bld) [#/Vol] 0.00 x10*3/uL Normal 0.00-0.00 [facility] Comment on above: Performed By: #### 5 57-0 ####AYDEE BAZZI L ([id number])[facility] ([facility])[address] [place] [address] Metamyelocytes/100 WBC (Bld) 0.0 % Normal 0.0-0.0 [facility] Comment on above: Performed By: #### 5 57-0 ####AYDEE Bruce ([id number])[facility] ([facility])[address] [place] [address] Monocytes (Bld) [#/Vol] 0.52 x10*3/uL Normal 0.10-1.00 [facility] Comment on above: Performed By: #### 5 0957-0 ####AYDEE Bruce ([id number])[facility] ([facility])[address]25 [place] [address] Monocytes/100 WBC (Bld) 6.1 % Normal 2.0-10.0 [facility] Comment on above: Performed By: #### 5 0957-0 ####AYDEE Bruce ([id number])[facility] ([facility])[address] [place] [address] Myelocytes (Bld) [#/Vol] 0.00 x10*3/uL Normal 0.00-0.00 [facility] Comment on above: Performed By: #### 5 57-0 ####AYDEE Bruce ([id number])[facility] ([facility])[address]29 [place] [address] Myelocytes/100 WBC (Bld) 0.0 % Normal 0.0-0.0 [facility] Comment on above: Performed By: #### 5 57-0 ####AYDEE Bruce ([id number])[facility] ([facility])[address]365 [place] [address] Neutrophils (Bld) [#/Vol] 7.17 x10*3/uL Normal 1.20-7.70 [facility] Comment on above: Performed By: #### 5 0957-0 ####AYDEE Bruce ([id number])[facility] ([facility])[address]49 [place] [address] Nucleated RBC/100 WBC (Bld) [Ratio] 0.0 % Normal 0.0-0.0 [facility] Comment on above: Performed By: #### 5 57-0 ####AYDEE Bruce (47086)[facility] ([facility])[address]26 [place] [address] Plasma cells (Bld) [#/Vol] 0.00 x10*3/uL Normal 0.00-0.00 [facility] Comment on above: Performed By: #### 5 0957-0 ####AYDEE Bruce ([id number])[facility] ([facility])[address]889 [place] [address] Plasma cells/100 WBC Manual cnt (Bld) 0.0 % Normal 0.00-0.00 [facility] Comment on above: Performed By: #### 5 0957-0 ####AYDEE Bruce ([id number])[facility] ([facility])[address]35 [place] [address] Promyelocytes (Bld) [#/Vol] 0.00 x10*3/uL Normal 0.00-0.00 [facility] Comment on above: Performed By: #### 5 57-0 ####AYDEE Bruce ([id number])[facility] ([facility])[address]32 [place] [address] Promyelocytes/100 WBC (Bld) 0.0 % Normal 0.0-0.0 [facility] Comment on above: Performed By: #### 5 57-0 ####AYDEE Bruce ([id number])[facility] ([facility])[address] [place] [address] RBC morphology finding Nom (Bld) See Below Normal [facility] Comment on above: Performed By: #### 5 57-0 ####AYDEE Bruce (00213)[facility] ([facility])[address]54 [place] [address] Segmented neutrophils (Bld) [#/Vol] 7.17 x10*3/uL High 1.20-7.00 [facility] Comment on above: Performed By: #### 5 57-0 ####AYDEE Bruce ([id number])[facility] ([facility])[address]44 [place] [address] Segmented neutrophils/100 WBC (Bld) 84.3 % Normal 40.0-80.0 [facility] Comment on above: Result Comment: Perc ent differential counts (%) should be interpreted in the context of the absolute cell counts (cells/uL). Performed By: #### 5 0957-0 ####AYDEE Bruce ([id number])[facility] ([facility])[address] [place] [address] Variant lymphocytes (Bld) [#/Vol] 0.08 x10*3/uL Normal 0.00-0.50 [facility] Comment on above: Performed By: #### 5 0957-0 ####AYDEE Bruce ([id number])[facility] ([facility])[address]698 [place] [address] Variant lymphocytes/100 WBC (Bld) 0.9 % Normal 0.0-2.0 [facility] Comment on above: Performed By: #### 5 0957-0 ####AYDEE Bruce ([id number])[facility] ([facility])[address]69 [place] [address] WBC other Manual cnt (Bld) [#/Vol] 0.00 x10*3/uL Normal [facility] Comment on above: Performed By: #### 5 0957-0 ####AYDEE Bruce (87530)[facility] ([facility])[address]372 [place] [address] WBC other/100 WBC (Bld) 0.0 % Normal [facility] Comment on above: Performed By: #### 5 0957-0 ####AYDEE Bruce ([id number])[facility] ([facility])[address]592 [place] [address] Phosphateon 10-13-2024 Phosphate [Mass/Vol] 2.7 mg/dL Normal 2.5-4.9 [facility] Comment on above: Performed By: #### 2 777-1 ####AYDEE Bruce (05721)[facility] ([facility])[address]44 [place] [address] Basic metabolic 2000 panelon 10-12-2024 Anion gap [Moles/Vol] 11 mmol/L Normal 10-20 [facility] Comment on above: Performed By: #### 2 4321-2 ####AYDEE BAZZI L ([id number])[facility] ([facility])[address]47 [place] [address] Calcium [Mass/Vol] 7.8 mg/dL Low 8.6-10.6 [facility] Comment on above: Performed By: #### 2 4321-2 ####AYDEE CAMILOMOTZER L ([id number])[facility] ([facility])[address]66 [place] [address] Chloride [Moles/Vol] 94 mmol/L Low 98-107 [facility] Comment on above: Performed By: #### 2 4321-2 ####AYDEE CAMILOMOTZER L (05653)[facility] ([facility])[address]462 [place] [address] CO2 [Moles/Vol] 29 mmol/L Normal 21-32 [facility] Comment on above: Performed By: #### 2 4321-2 ####AYDEE CAMILOMOTZER L (16510)[facility] ([facility])[address]897 [place] [address] Creatinine [Mass/Vol] 1.28 mg/dL High 0.50-1.05 [facility] Comment on above: Performed By: #### 2 4321-2 ####AYDEE CAMILOMOTZER L ([id number])[facility] ([facility])[address]174 [place] [address] Glomerular filtration rate 46 mL/min/1.73m*2 Low >60 [facility] Comment on above: Result Comment: Calc ulations of estimated GFR are performed using the 2020 CKD-EPI Study Refit equation without the race variable for the IDMS-Traceable creatinine methods.https://jasn.asnjournals.org/content/early/ N.5303924480 Performed By: #### 2 4321-2 ####AYDEE Bruce (49261)[facility] ([facility])[address]199 [place] [address] Glucose [Mass/Vol] 118 mg/dL High 74-99 [facility] Comment on above: Performed By: #### 2 4321-2 ####AYDEE Bruce (45863)[facility] ([facility])[address]489 [place] [address] Potassium [Moles/Vol] 4.3 mmol/L Normal 3.5-5.3 [facility] Comment on above: Performed By: #### 2 4321-2 ####AYDEE Bruce (59538)[facility] ([facility])[address] [place] [address] Sodium [Moles/Vol] 130 mmol/L Low 136-145 [facility] Comment on above: Performed By: #### 2 4321-2 ####AYDEE Bruce ([id number])[facility] ([facility])[address]05 [place] [address] Urea nitrogen [Mass/Vol] 25 mg/dL High 6-23 [facility] Comment on above: Performed By: #### 2 4321-2 ####AYDEE Bruce (05651)[facility] ([facility])[address] [place] [address] CBC W Auto Differential pane l (Bld)on 10-12-2024 Basophils (Bld) [#/Vol] 0.06 x10*3/uL Normal 0.00-0.10 [facility] Comment on above: Performed By: #### 5 7021-8 ####AYDEE Bruce (65907)[facility] ([facility])[address]52 [place] [address] Basophils/100 WBC (Bld) 0.6 % Normal 0.0-2.0 [facility] Comment on above: Performed By: #### 5 7021-8 ####AYDEE Bruce ([id number])[facility] ([facility])[address]13 [place] [address] Eosinophils (Bld) [#/Vol] 1.28 x10*3/uL High 0.00-0.70 [facility] Comment on above: Performed By: #### 5 7021-8 ####AYDEE Bruce ([id number])[facility] ([facility])[address]347 [place] [address] Eosinophils/100 WBC (Bld) 13.6 % Normal 0.0-6.0 [facility] Comment on above: Performed By: #### 5 7021-8 ####AYDEE Bruce ([id number])[facility] ([facility])[address] [place] [address] Erythrocyte distribution width (RBC) [Ratio] 18.1 % High 11.5-14.5 [facility] Comment on above: Performed By: #### 5 7021-8 ####AYDEE Bruce ([id number])[facility] ([facility])[address] [place] [address] Hematocrit (Bld) [Volume fraction] 28.0 % Low 36.0-46.0 [facility] Comment on above: Performed By: #### 5 7021-8 ####AYDEE Bruce ([id number])[facility] ([facility])[address] [place] [address] Hemoglobin (Bld) [Mass/Vol] 8.3 g/dL Low 12.0-16.0 [facility] Comment on above: Performed By: #### 5 7021-8 ####AYDEE Bruce ([id number])[facility] ([facility])[address]682 [place] [address] Immature granulocytes (Bld) [#/Vol] 0.10 x10*3/uL Normal 0.00-0.70 [facility] Comment on above: Performed By: #### 5 7021-8 ####AYDEE Bruce ([id number])[facility] ([facility])[address] [place] [address] Immature granulocytes/100 WBC (Bld) 1.1 % High 0.0-0.9 [facility] Comment on above: Result Comment: Doris ture Granulocyte Count (IG) includes promyelocytes, myelocytes and metamyelocytes but does not include bands. Percent differential counts (%) should be interpreted in the context of the absolute cell counts (cells/UL). Performed By: #### 5 7021-8 ####AYDEE Bruce ([id number])[facility] ([facility])[address]91 [place] [address] Lymphocytes (Bld) [#/Vol] 1.51 x10*3/uL Normal 1.20-4.80 [facility] Comment on above: Performed By: #### 5 7021-8 ####AYDEE Bruce ([id number])[facility] ([facility])[address]42 [place] [address] Lymphocytes/100 WBC (Bld) 16.1 % Normal 13.0-44.0 [facility] Comment on above: Performed By: #### 5 7021-8 ####AYDEE Bruce ([id number])[facility] ([facility])[address]018 [place] [address] MCH (RBC) [Entitic mass] 30.2 pg Normal 26.0-34.0 [facility] Comment on above: Performed By: #### 5 7021-8 ####AYDEE Bruce ([id number])[facility] ([facility])[address]80 [place] [address] MCHC (RBC) [Mass/Vol] 29.6 g/dL Low 32.0-36.0 [facility] Comment on above: Performed By: #### 5 7021-8 ####AYDEE Bruce ([id number])[facility] ([facility])[address]32 [place] [address] MCV (RBC) [Entitic vol] 102 fL High 80-100 [facility] Comment on above: Performed By: #### 5 7021-8 ####AYDEE Bruce ([id number])[facility] ([facility])[address]909 [place] [address] Monocytes (Bld) [#/Vol] 0.59 x10*3/uL Normal 0.10-1.00 [facility] Comment on above: Performed By: #### 5 7021-8 ####AYDEE Bruce ([id number])[facility] ([facility])[address]36 [place] [address] Monocytes/100 WBC (Bld) 6.3 % Normal 2.0-10.0 [facility] Comment on above: Performed By: #### 5 7021-8 ####AYDEE Bruce (51705)[facility] ([facility])[address]34 [place] [address] Neutrophils (Bld) [#/Vol] 5.85 x10*3/uL Normal 1.20-7.70 [facility] Comment on above: Result Comment: Perc ent differential counts (%) should be interpreted in the context of the absolute cell counts (cells/uL). Performed By: #### 5 7021-8 ####AYDEE Bruce ([id number])[facility] ([facility])[address]959 [place] [address] Neutrophils/100 WBC (Bld) 62.3 % Normal 40.0-80.0 [facility] Comment on above: Performed By: #### 5 7021-8 ####AYDEE Bruce ([id number])[facility] ([facility])[address]106 [place] [address] Nucleated RBC/100 WBC (Bld) [Ratio] 0.0 /100 WBCs Normal 0.0-0.0 [facility] Comment on above: Performed By: #### 5 7021-8 ####AYDEE Bruce ([id number])[facility] ([facility])[address]388 [place] [address] Platelets (Bld) [#/Vol] 242 x10*3/uL Normal 150-450 [facility] Comment on above: Performed By: #### 5 7021-8 ####AYDEE Bruce ([id number])[facility] ([facility])[address]30 [place] [address] RBC (Bld) [#/Vol] 2.75 x10*6/uL Low 4.00-5.20 [facility] Comment on above: Performed By: #### 5 7021-8 ####AYDEE Bruce (63713)[facility] ([facility])[address]70 [place] [address] WBC (Bld) [#/Vol] 9.4 x10*3/uL Normal 4.4-11.3 [facility] Comment on above: Performed By: #### 5 7021-8 ####AYDEE Bruce ([id number])[facility] ([facility])[address]13 [place] [address] Glucose Test strip manual (B ld) [Mass/Vol]on 10-12-2024 Glucose [Mass/Vol] 122 mg/dL High [address] [place] [address] Comment on above: Performed By: #### 2 341-6 ####AYDEE Bruce ([id number])[facility] ([facility])[address]30 [place] [address] Glucose [Mass/Vol] 128 mg/dL High [address] [place] [address] Comment on above: Performed By: #### 2 341-6 ####AYDEE Bruce ([id number])[facility] ([facility])[address]29 [place] [address] Glucose [Mass/Vol] 116 mg/dL High [address] [place] [address] Comment on above: Performed By: #### 2 341-6 ####AYDEE Bruce ([id number])[facility] ([facility])[address]642 [place] [address] Glucose [Mass/Vol] 113 mg/dL High [address] [place] [address] Comment on above: Performed By: #### 2 341-6 ####AYDEE Bruce ([id number])[facility] ([facility])[address]61 [place] [address] Glucose [Mass/Vol] 105 mg/dL High 74-99 [facility] Comment on above: Performed By: #### 2 341-6 ####AYDEE Bruce ([id number])[facility] ([facility])[address] [place] [address] Heparin.unfractionatedon Heparin unfractionated Chromogenic method Qn (PPP) 0.3 IU/mL Normal See Comment Below for Therapeutic Ranges [facility] Comment on above: Order Comment: Obtai n 4 hours after any Heparin dosage change. Nursing to release order.The therapeutic reference range for UFH may be either 0.3-0.6 IU/mL or 0.3-0.7 IU/mL based on the clinical setting for anticoagulant therapy and the associated nomogram used. For Heparin dosing guidelines based on clinical scenario and Heparin Assay results, please refer to local Pharmacy and the [facility] Guidelines for Anticoagulation Therapy available on the [facility] intranet at: [email or web address] Performed By: #### 3 274-8 ####AYDEE Bruce ([id number])[facility] ([facility])[address] [place] [id number] Heparin unfractionated Chromogenic method Qn (PPP) 0.3 IU/mL Normal See Comment Below for Therapeutic Ranges [facility] Comment on above: Order Comment: Obtai n 4 hours after any Heparin dosage change. Nursing to release order.The therapeutic reference range for UFH may be either 0.3-0.6 IU/mL or 0.3-0.7 IU/mL based on the clinical setting for anticoagulant therapy and the associated nomogram used. For Heparin dosing guidelines based on clinical scenario and Heparin Assay results, please refer to local Pharmacy and the [facility] Guidelines for Anticoagulation Therapy available on the [facility] intranet at: [email or web address]_[email or web address] Performed By: #### 3 274-8 ####AYDEE Bruce ([id number])[facility] ([facility])[address] [place] [address] Heparin unfractionated Chromogenic method Qn (PPP) 0.2 IU/mL Normal See Comment Below for Therapeutic Ranges [facility] Comment on above: Order Comment: Obtai n 4 hours after any Heparin dosage change. Nursing to release order.The therapeutic reference range for UFH may be either 0.3-0.6 IU/mL or 0.3-0.7 IU/mL based on the clinical setting for anticoagulant therapy and the associated nomogram used. For Heparin dosing guidelines based on clinical scenario and Heparin Assay results, please refer to local Pharmacy and the [facility] Guidelines for Anticoagulation Therapy available on the [facility] intranet at: [email or web address]_[email or web address] Performed By: #### 3 274-8 ####AYDEE Bruce ([id number])[facility] ([facility])[id number] [place] [address] Hepatic function 2000 panelo n 10-12-2024 Albumin BCP dye [Mass/Vol] 2.7 g/dL Low 3.4-5.0 [facility] Comment on above: Performed By: #### 2 4325-3 ####AYDEE Bruce ([id number])[facility] ([facility])[address] [place] [address] ALP [Catalytic activity/Vol] 244 U/L High 33-136 [facility] Comment on above: Performed By: #### 2 4325-3 ####AYDEE Bruce ([id number])[facility] ([facility])[address] [place] [address] ALT With P-5'-P [Catalytic activity/Vol] 31 U/L Normal 7-45 [facility] Comment on above: Result Comment: Susan ents treated with Sulfasalazine may generate falsely decreased results for ALT. Performed By: #### 2 4325-3 ####AYDEE Bruce ([id number])[facility] ([facility])[address] [place] [address] AST With P-5'-P [Catalytic activity/Vol] 36 U/L Normal 9-39 [facility] Comment on above: Performed By: #### 2 4325-3 ####AYDEE Bruce ([id number])[facility] ([facility])[address] [place] [address] Bilirubin [Mass/Vol] 2.2 mg/dL High 0.0-1.2 [facility] Comment on above: Performed By: #### 2 4325-3 ####AYDEE Bruce ([id number])[facility] ([facility])[address] [place] [address] Bilirubin.direct [Mass/Vol] 0.7 mg/dL High 0.0-0.3 [facility] Comment on above: Performed By: #### 2 4325-3 ####AYDEE Bruce ([id number])[facility] ([facility])[address] [place] [address] Protein [Mass/Vol] 4.7 g/dL Low 6.4-8.2 [facility] Comment on above: Performed By: #### 2 4325-3 ####AYDEE Bruce ([id number])[facility] ([facility])[address] [place] [address] Magnesiumon 10-12-2024 Magnesium [Mass/Vol] 1.98 mg/dL Normal 1.60-2.40 [facility] Comment on above: Performed By: #### 1 9123-9 ####AYDEE Bruce (52259)[facility] ([facility])[address]260 [place] [address] Phosphateon 10-12-2024 Phosphate [Mass/Vol] 1.8 mg/dL Low 2.5-4.9 [facility] Comment on above: Performed By: #### 2 777-1 ####AYDEE Bruce ([id number])[facility] ([facility])[address] [place] [address] Basic metabolic 2000 panelon 10-11-2024 Anion gap [Moles/Vol] 8 mmol/L Low 10-20 [facility] Comment on above: Performed By: #### 2 4321-2 ####AYDEE ZHONGER L ([id number])[facility] ([facility])[address] [place] [address] Calcium [Mass/Vol] 7.6 mg/dL Low 8.6-10.6 [facility] Comment on above: Performed By: #### 2 4321-2 ####AYDEE CAMILOMOTZER L (94952)[facility] ([facility])[address] [place] [address] Chloride [Moles/Vol] 97 mmol/L Low 98-107 [facility] Comment on above: Performed By: #### 2 4321-2 ####AYDEE SCHMOTZER L (25430)[facility] ([facility])[address]503 [place] [address] CO2 [Moles/Vol] 30 mmol/L Normal 21-32 [facility] Comment on above: Performed By: #### 2 4321-2 ####AYDEE CAMILOMOTZER L (59351)[facility] ([facility])[address]01 [place] [address] Creatinine [Mass/Vol] 0.36 mg/dL Low 0.50-1.05 [facility] Comment on above: Performed By: #### 2 4321-2 ####AYDEE CAMILOMOTZER L (11541)[facility] ([facility])[address]681 [place] [address] Glomerular filtration rate >90 Normal >60 [facility] Comment on above: Result Comment: Calc ulations of estimated GFR are performed using the 2020 CKD-EPI Study Refit equation without the race variable for the IDMS-Traceable creatinine methods.https://jasn.asnjournals.org/content/early/ N.2160431038 Performed By: #### 2 4321-2 ####AYDEE Bruce ([id number])[facility] ([facility])[address]173 [place] [address] Glucose [Mass/Vol] 115 mg/dL High 74-99 [facility] Comment on above: Performed By: #### 2 4321-2 ####AYDEE Bruce ([id number])[facility] ([facility])[address]31 [place] [address] Potassium [Moles/Vol] 4.4 mmol/L Normal 3.5-5.3 [facility] Comment on above: Performed By: #### 2 4321-2 ####AYDEE Bruce ([id number])[facility] ([facility])[address]93 [place] [address] Sodium [Moles/Vol] 131 mmol/L Low 136-145 [facility] Comment on above: Performed By: #### 2 4321-2 ####AYDEE Bruce ([id number])[facility] ([facility])[address]372 [place] [address] Urea nitrogen [Mass/Vol] 7 mg/dL Normal 6-23 [facility] Comment on above: Performed By: #### 2 4321-2 ####AYDEE Bruce (50356)[facility] ([facility])[address]247 [place] [address] Blood type and Indirect anti body screen panel (Bld)on 10-11-2024 ABO group Nom (Bld) B Normal [facility] Comment on above: Performed By: #### 3 4532-2 ####AYDEE Bruce ([id number])[facility] ([facility])[address]55 [place] [address] Blood group antibody screen Ql Negative [facility] Comment on above: Performed By: #### 3 4532-2 ####AYDEE Bruce ([id number])[facility] ([facility])[address]99 [place] [address] D Ag Ql (Bld) Positive Normal [facility] Comment on above: Performed By: #### 3 4532-2 ####AYDEE Bruce ([id number])[facility] ([facility])[id number] [place] [address] CBC W Auto Differential pane l (Bld)on 10-11-2024 Basophils (Bld) [#/Vol] 0.03 x10*3/uL Normal 0.00-0.10 [facility] Comment on above: Performed By: #### 5 7021-8 ####AYDEE Bruce ([id number])[facility] ([facility])[address]45 [place] [address] Basophils/100 WBC (Bld) 0.3 % Normal 0.0-2.0 [facility] Comment on above: Performed By: #### 5 7021-8 ####AYDEE Bruce ([id number])[facility] ([facility])[address] [place] [address] Eosinophils (Bld) [#/Vol] 1.03 x10*3/uL High 0.00-0.70 [facility] Comment on above: Performed By: #### 5 7021-8 ####AYDEE Bruce ([id number])[facility] ([facility])[address] [place] [address] Eosinophils/100 WBC (Bld) 10.6 % Normal 0.0-6.0 [facility] Comment on above: Performed By: #### 5 7021-8 ####AYDEE Bruce ([id number])[facility] ([facility])[address] [place] [address] Erythrocyte distribution width (RBC) [Ratio] 18.2 % High 11.5-14.5 [facility] Comment on above: Performed By: #### 5 7021-8 ####AYDEE Bruce ([id number])[facility] ([facility])[address] [place] [address] Hematocrit (Bld) [Volume fraction] 21.4 % Low 36.0-46.0 [facility] Comment on above: Performed By: #### 5 7021-8 ####AYDEE Bruce ([id number])[facility] ([facility])[address]318 [place] [address] Hemoglobin (Bld) [Mass/Vol] 6.2 g/dL Critically low 12.0-16.0 [facility] Comment on above: Performed By: #### 5 7021-8 ####AYDEE Bruce ([id number])[facility] ([facility])[address]223 [place] [address] Immature granulocytes (Bld) [#/Vol] 0.10 x10*3/uL Normal 0.00-0.70 [facility] Comment on above: Performed By: #### 5 7021-8 ####AYDEE Bruce (07952)[facility] ([facility])[address]73 [place] [address] Immature granulocytes/100 WBC (Bld) 1.0 % High 0.0-0.9 [facility] Comment on above: Result Comment: Doris ture Granulocyte Count (IG) includes promyelocytes, myelocytes and metamyelocytes but does not include bands. Percent differential counts (%) should be interpreted in the context of the absolute cell counts (cells/UL). Performed By: #### 5 7021-8 ####AYDEE Bruce (24039)[facility] ([facility])[address]339 [place] [address] Lymphocytes (Bld) [#/Vol] 2.05 x10*3/uL Normal 1.20-4.80 [facility] Comment on above: Performed By: #### 5 7021-8 ####AYDEE Bruce ([id number])[facility] ([facility])[address]70 [place] [address] Lymphocytes/100 WBC (Bld) 21.0 % Normal 13.0-44.0 [facility] Comment on above: Performed By: #### 5 7021-8 ####AYDEE Bruce (26057)[facility] ([facility])[address]591 [place] [address] MCH (RBC) [Entitic mass] 29.7 pg Normal 26.0-34.0 [facility] Comment on above: Performed By: #### 5 7021-8 ####AYDEE Bruce (09441)[facility] ([facility])[address]376 [place] [address] MCHC (RBC) [Mass/Vol] 29.0 g/dL Low 32.0-36.0 [facility] Comment on above: Performed By: #### 5 7021-8 ####AYDEE Bruce ([id number])[facility] ([facility])[address]132 [place] [address] MCV (RBC) [Entitic vol] 102 fL High 80-100 [facility] Comment on above: Performed By: #### 5 7021-8 ####AYDEE Bruce ([id number])[facility] ([facility])[address]289 [place] [address] Monocytes (Bld) [#/Vol] 0.54 x10*3/uL Normal 0.10-1.00 [facility] Comment on above: Performed By: #### 5 7021-8 ####AYDEE Bruce (17881)[facility] ([facility])[address]57 [place] [address] Monocytes/100 WBC (Bld) 5.5 % Normal 2.0-10.0 [facility] Comment on above: Performed By: #### 5 7021-8 ####AYDEE Bruce (04577)[facility] ([facility])[address]03 [place] [address] Neutrophils (Bld) [#/Vol] 6.00 x10*3/uL Normal 1.20-7.70 [facility] Comment on above: Result Comment: Perc ent differential counts (%) should be interpreted in the context of the absolute cell counts (cells/uL). Performed By: #### 5 7021-8 ####AYDEE Bruce (44729)[facility] ([facility])[address]672 [place] [address] Neutrophils/100 WBC (Bld) 61.6 % Normal 40.0-80.0 [facility] Comment on above: Performed By: #### 5 7021-8 ####AYDEE Bruce (03543)[facility] ([facility])[address]251 [place] [address] Nucleated RBC/100 WBC (Bld) [Ratio] 0.0 /100 WBCs Normal 0.0-0.0 [facility] Comment on above: Performed By: #### 5 7021-8 ####AYDEE Bruce (25330)[facility] ([facility])[address]852 [place] [address] Platelets (Bld) [#/Vol] 247 x10*3/uL Normal 150-450 [facility] Comment on above: Performed By: #### 5 7021-8 ####AYDEE Bruce (50345)[facility] ([facility])[address]97 [place] [address] RBC (Bld) [#/Vol] 2.09 x10*6/uL Low 4.00-5.20 [facility] Comment on above: Performed By: #### 5 7021-8 ####AYDEE Bruce (02932)[facility] ([facility])[address]803 [place] [address] WBC (Bld) [#/Vol] 9.8 x10*3/uL Normal 4.4-11.3 [facility] Comment on above: Performed By: #### 5 7021-8 ####AYDEE Bruce ([id number])[facility] ([facility])[address]997 [place] [address] CBC panel Auto (Bld)on 10-11 Erythrocyte distribution width (RBC) [Ratio] 17.4 % High 11.5-14.5 [facility] Comment on above: Performed By: #### 5 8410-2 ####AYDEE Bruce (04503)[facility] ([facility])[address]77 [place] [address] Hematocrit (Bld) [Volume fraction] 26.7 % Low 36.0-46.0 [facility] Comment on above: Performed By: #### 5 8410-2 ####AYDEE Bruce (64156)[facility] ([facility])[address]39 [place] [address] Hemoglobin (Bld) [Mass/Vol] 8.2 g/dL Low 12.0-16.0 [facility] Comment on above: Performed By: #### 5 8410-2 ####AYDEE Bruce (82060)[facility] ([facility])[address] [place] [address] MCH (RBC) [Entitic mass] 30.1 pg Normal 26.0-34.0 [facility] Comment on above: Performed By: #### 5 8410-2 ####AYDEE Bruce (47078)[facility] ([facility])[address]28 [place] [address] MCHC (RBC) [Mass/Vol] 30.7 g/dL Low 32.0-36.0 [facility] Comment on above: Performed By: #### 5 8410-2 ####AYDEE Bruce (69232)[facility] ([facility])[address]98 [place] [address] MCV (RBC) [Entitic vol] 98 fL Normal 80-100 [facility] Comment on above: Performed By: #### 5 8410-2 ####AYDEE Bruce (12707)[facility] ([facility])[address]83 [place] [address] Nucleated RBC/100 WBC (Bld) [Ratio] 0.0 /100 WBCs Normal 0.0-0.0 [facility] Comment on above: Performed By: #### 5 8410-2 ####AYDEE Bruce ([id number])[facility] ([facility])[address] [place] [address] Platelets (Bld) [#/Vol] 245 x10*3/uL Normal 150-450 [facility] Comment on above: Performed By: #### 5 8410-2 ####AYDEE Bruce ([id number])[facility] ([facility])83132 [place] [address] RBC (Bld) [#/Vol] 2.72 x10*6/uL Low 4.00-5.20 [facility] Comment on above: Performed By: #### 5 8410-2 ####AYDEE Bruce (54449)[facility] ([facility])[address] [place] [address] WBC (Bld) [#/Vol] 9.3 x10*3/uL Normal 4.4-11.3 [facility] Comment on above: Performed By: #### 5 8410-2 ####AYDEE Bruce (12402)[facility] ([facility])[address] [place] [address] Ferritinon 10-11-2024 Ferritin [Mass/Vol] 872 ng/mL High 8-150 [facility] Comment on above: Performed By: #### 2 276-4 ####AYDEE Bruce (87698)[facility] ([facility])[address] [place] [address] 23392 Glucose Test strip manual (B ld) [Mass/Vol]on 10-11-2024 Glucose [Mass/Vol] 109 mg/dL High 74-99 [facility] Comment on above: Performed By: #### 2 341-6 ####AYDEE Bruce (05607)[facility] ([facility])[address]59 [place] [address] Glucose [Mass/Vol] 104 mg/dL High 74-99 [facility] Comment on above: Performed By: #### 2 341-6 ####AYDEE Bruce ([id number])[facility] ([facility])[address] [place] [address] Glucose [Mass/Vol] 124 mg/dL High 74-99 [facility] Comment on above: Performed By: #### 2 341-6 ####AYDEE Bruce (81548)[facility] ([facility])[address] [place] [address] Glucose [Mass/Vol] 128 mg/dL High 74-99 [facility] Comment on above: Performed By: #### 2 341-6 ####AYDEE Bruce ([id number])[facility] ([facility])[address]183 [place] [address] Glucose [Mass/Vol] 109 mg/dL High 74-99 [facility] Comment on above: Performed By: #### 2 341-6 ####AYDEE Bruce (11900)[facility] ([facility])[address]68 [place] [address] Haptoglobinon 10-11-2024 Haptoglobin Nephelometry [Mass/Vol] 329 mg/dL High 30-200 [facility] Comment on above: Performed By: #### 4 6127-7 ####AYDEE Bruce (80253)[facility] ([facility])[address]26 [place] [address] Heparin.unfractionatedon Heparin unfractionated Chromogenic method Qn (PPP) 0.2 IU/mL Normal See Comment Below for Therapeutic Ranges [facility] Comment on above: Order Comment: Obtai n 4 hours after any Heparin dosage change. Nursing to release order.The therapeutic reference range for UFH may be either 0.3-0.6 IU/mL or 0.3-0.7 IU/mL based on the clinical setting for anticoagulant therapy and the associated nomogram used. For Heparin dosing guidelines based on clinical scenario and Heparin Assay results, please refer to local Pharmacy and the [facility] Guidelines for Anticoagulation Therapy available on the [facility] intranet at: [email or web address] Performed By: #### 3 274-8 ####AYDEE Bruce (46900)[facility] ([facility])68166 [place] [address] Hepatic function 2000 panelo n 10-11-2024 Albumin BCP dye [Mass/Vol] 2.5 g/dL Low 3.4-5.0 [facility] Comment on above: Performed By: #### 2 4325-3 ####AYDEE Bruce (13151)[facility] ([facility])[address]202 [place] [address] ALP [Catalytic activity/Vol] 217 U/L High 33-136 [facility] Comment on above: Performed By: #### 2 4325-3 ####AYDEE Bruce ([id number])[facility] ([facility])[address]00 [place] [address] ALT With P-5'-P [Catalytic activity/Vol] 30 U/L Normal 7-45 [facility] Comment on above: Result Comment: Susan ents treated with Sulfasalazine may generate falsely decreased results for ALT. Performed By: #### 2 4325-3 ####AYDEE Bruce (14493)[facility] ([facility])[address]324 [place] [address] AST With P-5'-P [Catalytic activity/Vol] 45 U/L High 9-39 [facility] Comment on above: Performed By: #### 2 4325-3 ####AYDEE Bruce (34493)[facility] ([facility])[address]6541 [place] [address] Bilirubin [Mass/Vol] 1.8 mg/dL High 0.0-1.2 [facility] Comment on above: Performed By: #### 2 4325-3 ####AYDEE BAZZI L (34847)[facility] ([facility])[address]50 [place] [address] Bilirubin.direct [Mass/Vol] 0.6 mg/dL High 0.0-0.3 [facility] Comment on above: Performed By: #### 2 4325-3 ####AYDEE Bruce (13863)[facility] ([facility])86300 [place] [address] Protein [Mass/Vol] 4.5 g/dL Low 6.4-8.2 [facility] Comment on above: Performed By: #### 2 4325-3 ####AYDEE Bruce (19411)[facility] ([facility])[address] [place] [address] Iron and Iron binding capaci ty panelon 10-11-2024 Iron [Mass/Vol] 37 ug/dL Normal 35-150 [facility] Comment on above: Performed By: #### 5 0190-8 ####AYDEE Bruce ([id number])[facility] ([facility])[address] [place] [address] 40713 Iron binding capacity [Mass/Vol] 232 ug/dL Low 240-445 [facility] Comment on above: Performed By: #### 5 0190-8 ####AYDEE Bruce ([id number])[facility] ([facility])[address] [place] [address] 92454 Iron binding capacity.unsaturated [Mass/Vol] 195 ug/dL Normal 110-370 [facility] Comment on above: Performed By: #### 5 0190-8 ####AYDEE Bruce (79822)[facility] ([facility])[address] [place] [address] 95[address] Iron saturation [Mass fraction] 16 % Low 25-45 [facility] Comment on above: Performed By: #### 5 0190-8 ####AYDEE Bruce (52169)[facility] ([facility])[address] [place] [address] 860[address] Lactate dehydrogenaseon LDH Lactate to pyruvate reaction [Catalytic activity/Vol] 313 U/L High 84-246 [facility] Comment on above: Performed By: #### 1 4804-9 ####AYDEE Bruce (69729)[facility] ([facility])[address]63 [place] [address] Magnesiumon 10-11-2024 Magnesium [Mass/Vol] 1.81 mg/dL Normal 1.60-2.40 [facility] Comment on above: Performed By: #### 1 9123-9 ####AYDEE Bruce ([id number])[facility] ([facility])[address]644 [place] [address] comment (Bld) [Interp]on 10-11-2024 PATH REVIEW-CBC DIFFERENTIAL Macrocytic hypochromic anemia with anisocytosis, polychromasia, and few nRBCs. No schistocytes identified. Adequate leukocytes with mild eosinophilia and mild granulocytic left shift. Adequate platelets with few giant forms and no clumping seen. Normal [facility] Comment on above: Result Comment: Elec tronically signed out by Du Costa MD on 10/12/24 at 1:42 PM.By the signature on this report, the individual or group listed as making the Final Interpretation/Diagnosis certifies that they have reviewed this case. Performed By: #### 1 4869-2 ####AYDEE Bruce ([id number])[facility] ([facility])[address]231 [place] [address] Phosphateon 10-11-2024 Phosphate [Mass/Vol] 1.2 mg/dL Low 2.5-4.9 [facility] Comment on above: Performed By: #### 2 777-1 ####AYDEE Bruce (71068)[facility] ([facility])[address] [place] [address] 705[address] RBC shape Nom (Bld)on 2024 RBC morphology finding Nom (Bld) No significant RBC morphology present Normal [facility] Comment on above: Performed By: #### 1 8225-3 ####AYDEE Bruce ([id number])[facility] ([facility])[address]25 [place] [address] XR CHEST 1 VIEWon 10-11-2024 XR CHEST 1 VIEW Normal [facility] Basic metabolic 2000 panelon 10-10-2024 Anion gap [Moles/Vol] 10 mmol/L Normal 10-20 [facility] Comment on above: Performed By: #### 2 4321-2 ####AYDEE BAZZI L (40150)[facility] ([facility])[address]47 [place] [address] Calcium [Mass/Vol] 7.5 mg/dL Low 8.6-10.6 [facility] Comment on above: Performed By: #### 2 4321-2 ####AYDEE CAMILOMOTZER L (01646)[facility] ([facility])[address]04 [place] [address] Chloride [Moles/Vol] 97 mmol/L Low 98-107 [facility] Comment on above: Performed By: #### 2 4321-2 ####AYDEE BAZZI L (51877)[facility] ([facility])[address]630 [place] [address] CO2 [Moles/Vol] 29 mmol/L Normal 21-32 [facility] Comment on above: Performed By: #### 2 4321-2 ####AYDEE BAZZI L ([id number])[facility] ([facility])[address] [place] [address] Creatinine [Mass/Vol] 0.37 mg/dL Low 0.50-1.05 [facility] Comment on above: Performed By: #### 2 4321-2 ####AYDEE VALDEZTZER L ([id number])[facility] ([facility])[address] [place] [address] Glomerular filtration rate >90 Normal >60 [facility] Comment on above: Result Comment: Calc ulations of estimated GFR are performed using the 2020 CKD-EPI Study Refit equation without the race variable for the IDMS-Traceable creatinine methods.https://jasn.asnjournals.org/content/early/ N.2714508720 Performed By: #### 2 4321-2 ####AYDEE BAZZI L ([id number])[facility] ([facility])[address] [place] [address] Glucose [Mass/Vol] 118 mg/dL High 74-99 [facility] Comment on above: Performed By: #### 2 4321-2 ####AYDEE Bruce ([id number])[facility] ([facility])[address] [place] [address] Potassium [Moles/Vol] 3.1 mmol/L Low 3.5-5.3 [facility] Comment on above: Performed By: #### 2 4321-2 ####AYDEE Bruce ([id number])[facility] ([facility])[address]28 [place] [address] Sodium [Moles/Vol] 133 mmol/L Low 136-145 [facility] Comment on above: Performed By: #### 2 4321-2 ####AYDEE Bruce ([id number])[facility] ([facility])[address]382 [place] [address] Urea nitrogen [Mass/Vol] 5 mg/dL Low 6-23 [facility] Comment on above: Performed By: #### 2 4321-2 ####AYDEE Bruce ([id number])[facility] ([facility])[id number] [place] [address] CBC W Auto Differential pane l (Bld)on 10-10-2024 Basophils (Bld) [#/Vol] 0.02 x10*3/uL Normal 0.00-0.10 [facility] Comment on above: Performed By: #### 5 7021-8 ####AYDEE Bruce ([id number])[facility] ([facility])[address]60 [place] [address] Basophils/100 WBC (Bld) 0.2 % Normal 0.0-2.0 [facility] Comment on above: Performed By: #### 5 7021-8 ####AYDEE Bruce ([id number])[facility] ([facility])[address]83 [place] [address] Eosinophils (Bld) [#/Vol] 0.71 x10*3/uL High 0.00-0.70 [facility] Comment on above: Performed By: #### 5 7021-8 ####AYDEE Bruce ([id number])[facility] ([facility])[address]46 [place] [address] Eosinophils/100 WBC (Bld) 8.5 % Normal 0.0-6.0 [facility] Comment on above: Performed By: #### 5 7021-8 ####AYDEE Bruce ([id number])[facility] ([facility])[address] [place] [address]11 Erythrocyte distribution width (RBC) [Ratio] 18.1 % High 11.5-14.5 [facility] Comment on above: Performed By: #### 5 7021-8 ####AYDEE Bruce ([id number])[facility] ([facility])[address] [place] [address] Hematocrit (Bld) [Volume fraction] 22.5 % Low 36.0-46.0 [facility] Comment on above: Performed By: #### 5 7021-8 ####AYDEE Bruce ([id number])[facility] ([facility])[address] [place] [address]283 Hemoglobin (Bld) [Mass/Vol] 7.1 g/dL Low 12.0-16.0 [facility] Comment on above: Performed By: #### 5 7021-8 ####AYDEE Bruce ([id number])[facility] ([facility])[address] [place] [address] Immature granulocytes (Bld) [#/Vol] 0.05 x10*3/uL Normal 0.00-0.70 [facility] Comment on above: Performed By: #### 5 7021-8 ####AYDEE Bruce ([id number])[facility] ([facility])[address]36 [place] [address] Immature granulocytes/100 WBC (Bld) 0.6 % Normal 0.0-0.9 [facility] Comment on above: Result Comment: Doris ture Granulocyte Count (IG) includes promyelocytes, myelocytes and metamyelocytes but does not include bands. Percent differential counts (%) should be interpreted in the context of the absolute cell counts (cells/UL). Performed By: #### 5 7021-8 ####AYDEE Bruce ([id number])[facility] ([facility])69242 [place] [address] Lymphocytes (Bld) [#/Vol] 1.43 x10*3/uL Normal 1.20-4.80 [facility] Comment on above: Performed By: #### 5 7021-8 ####AYDEE Bruce ([id number])[facility] ([facility])[address]15 [place] [address] Lymphocytes/100 WBC (Bld) 17.1 % Normal 13.0-44.0 [facility] Comment on above: Performed By: #### 5 7021-8 ####AYDEE Bruce ([id number])[facility] ([facility])[address]20 [place] [address] MCH (RBC) [Entitic mass] 30.1 pg Normal 26.0-34.0 [facility] Comment on above: Performed By: #### 5 7021-8 ####AYDEE Bruce ([id number])[facility] ([facility])[address]87 [place] [address] MCHC (RBC) [Mass/Vol] 31.6 g/dL Low 32.0-36.0 [facility] Comment on above: Performed By: #### 5 7021-8 ####AYDEE BAZZI L ([id number])[facility] ([facility])[address]126 [place] [address] MCV (RBC) [Entitic vol] 95 fL Normal 80-100 [facility] Comment on above: Performed By: #### 5 7021-8 ####AYDEE Bruce ([id number])[facility] ([facility])60560 [place] [address] Monocytes (Bld) [#/Vol] 0.43 x10*3/uL Normal 0.10-1.00 [facility] Comment on above: Performed By: #### 5 7021-8 ####AYDEE Bruce ([id number])[facility] ([facility])[address]59 [place] [address] Monocytes/100 WBC (Bld) 5.1 % Normal 2.0-10.0 [facility] Comment on above: Performed By: #### 5 7021-8 ####AYDEE Bruce ([id number])[facility] ([facility])[address]4737 [place] [address] Neutrophils (Bld) [#/Vol] 5.71 x10*3/uL Normal 1.20-7.70 [facility] Comment on above: Result Comment: Perc ent differential counts (%) should be interpreted in the context of the absolute cell counts (cells/uL). Performed By: #### 5 7021-8 ####AYDEE Bruce ([id number])[facility] ([facility])[address]48 [place] [address] Neutrophils/100 WBC (Bld) 68.5 % Normal 40.0-80.0 [facility] Comment on above: Performed By: #### 5 7021-8 ####AYDEE Bruce ([id number])[facility] ([facility])[address]93 [place] [address] Nucleated RBC/100 WBC (Bld) [Ratio] 0.0 /100 WBCs Normal 0.0-0.0 [facility] Comment on above: Performed By: #### 5 7021-8 ####AYDEE BAZZI L ([id number])[facility] ([facility])[address]204 [place] [address] Platelets (Bld) [#/Vol] 201 x10*3/uL Normal 150-450 [facility] Comment on above: Performed By: #### 5 7021-8 ####AYDEE BAZZI L ([id number])[facility] ([facility])24272 [place] [address] RBC (Bld) [#/Vol] 2.36 x10*6/uL Low 4.00-5.20 [facility] Comment on above: Performed By: #### 5 7021-8 ####AYDEE Bruce ([id number])[facility] ([facility])65598 [place] [address] WBC (Bld) [#/Vol] 8.4 x10*3/uL Normal 4.4-11.3 [facility] Comment on above: Performed By: #### 5 7021-8 ####AYDEE Bruce ([id number])[facility] ([facility])[address]181 [place] [address] Glucose Test strip manual (B ld) [Mass/Vol]on 10-10-2024 Glucose [Mass/Vol] 103 mg/dL High [address] [place] [address] Comment on above: Performed By: #### 2 341-6 ####AYDEE Bruce ([id number])[facility] ([facility])[address]73 [place] [address] Glucose [Mass/Vol] 111 mg/dL High [address] [place] [address] Comment on above: Performed By: #### 2 341-6 ####AYDEE Bruce ([id number])[facility] ([facility])[address]406 [place] [address] Glucose [Mass/Vol] 124 mg/dL High [address] [place] [address] Comment on above: Performed By: #### 2 341-6 ####AYDEE Bruce ([id number])[facility] ([facility])[address]77 [place] [address] Glucose [Mass/Vol] 115 mg/dL High [address] [place] [address] Comment on above: Performed By: #### 2 341-6 ####AYDEE Bruce ([id number])[facility] ([facility])[address]23 [place] [address] Glucose [Mass/Vol] 120 mg/dL High 74-99 [facility] Comment on above: Performed By: #### 2 341-6 ####AYDEE Bruce ([id number])[facility] ([facility])[address]76 [place] [address] Glucose [Mass/Vol] 89 mg/dL Normal 74-99 [facility] Comment on above: Performed By: #### 2 341-6 ####AYDEE Bruce (27249)[facility] ([facility])[address]809 [place] [address] Heparin.unfractionatedon Heparin unfractionated Chromogenic method Qn (PPP) 0.3 IU/mL Normal See Comment Below for Therapeutic Ranges [facility] Comment on above: Order Comment: Obtai n 4 hours after any Heparin dosage change. Nursing to release order.The therapeutic reference range for UFH may be either 0.3-0.6 IU/mL or 0.3-0.7 IU/mL based on the clinical setting for anticoagulant therapy and the associated nomogram used. For Heparin dosing guidelines based on clinical scenario and Heparin Assay results, please refer to local Pharmacy and the [facility] Guidelines for Anticoagulation Therapy available on the [facility] intranet at: [email or web address] Performed By: #### 3 274-8 ####AYDEE Bruce ([id number])[facility] ([facility])11703 [place] [address] Hepatic function 2000 panelo n 10-10-2024 Albumin BCP dye [Mass/Vol] 2.4 g/dL Low 3.4-5.0 [facility] Comment on above: Performed By: #### 2 4325-3 ####AYDEE Bruce ([id number])[facility] ([facility])30928 [place] [address] ALP [Catalytic activity/Vol] 209 U/L High 33-136 [facility] Comment on above: Performed By: #### 2 4325-3 ####AYDEE Bruce ([id number])[facility] ([facility])[address]87 [place] [address] ALT With P-5'-P [Catalytic activity/Vol] 28 U/L Normal 7-45 [facility] Comment on above: Result Comment: Susan ents treated with Sulfasalazine may generate falsely decreased results for ALT. Performed By: #### 2 4325-3 ####AYDEE Bruce ([id number])[facility] ([facility])[address]111 [place] [address] AST With P-5'-P [Catalytic activity/Vol] 52 U/L High 9-39 [facility] Comment on above: Performed By: #### 2 4325-3 ####AYDEE Bruce ([id number])[facility] ([facility])[address]402 [place] [address] Bilirubin [Mass/Vol] 2.1 mg/dL High 0.0-1.2 [facility] Comment on above: Performed By: #### 2 4325-3 ####AYDEE Bruce ([id number])[facility] ([facility])59687 [place] [address] Bilirubin.direct [Mass/Vol] 0.7 mg/dL High 0.0-0.3 [facility] Comment on above: Performed By: #### 2 4325-3 ####AYDEE Bruec ([id number])[facility] ([facility])08235 [place] [address] Protein [Mass/Vol] 4.3 g/dL Low 6.4-8.2 [facility] Comment on above: Performed By: #### 2 4325-3 ####AYDEE Bruce ([id number])[facility] ([facility])26243 [place] [address] Magnesiumon 10-10-2024 Magnesium [Mass/Vol] 2.33 mg/dL Normal 1.60-2.40 [facility] Comment on above: Performed By: #### 1 9123-9 ####AYDEE Bruce ([id number])[facility] ([facility])63693 [place] [address] Magnesium [Mass/Vol] 1.71 mg/dL Normal 1.60-2.40 [facility] Comment on above: Performed By: #### 1 9123-9 ####AYDEE Bruce ([id number])[facility] ([facility])[address]53 [place] [address] Phosphateon 10-10-2024 Phosphate [Mass/Vol] 1.0 mg/dL Low 2.5-4.9 [facility] Comment on above: Performed By: #### 2 777-1 ####AYDEE Bruce (76331)[facility] ([facility])26745 [place] [address] Renal function 2000 panelon 10-10-2024 Albumin BCP dye [Mass/Vol] 2.5 g/dL Low 3.4-5.0 [facility] Comment on above: Performed By: #### 2 4362-6 ####AYDEE Bruce ([id number])[facility] ([facility])74385 [place] [address] Anion gap [Moles/Vol] 11 mmol/L Normal 10-20 [facility] Comment on above: Performed By: #### 2 4362-6 ####AYDEE Bruce ([id number])[facility] ([facility])[address]22 [place] [address] Calcium [Mass/Vol] 7.7 mg/dL Low 8.6-10.6 [facility] Comment on above: Performed By: #### 2 4362-6 ####AYDEE Bruce (28655)[facility] ([facility])89783 [place] [address] Chloride [Moles/Vol] 98 mmol/L Normal 98-107 [facility] Comment on above: Performed By: #### 2 4362-6 ####AYDEE Bruce (85655)[facility] ([facility])[address] [place] [address] CO2 [Moles/Vol] 28 mmol/L Normal 21-32 [facility] Comment on above: Performed By: #### 2 4362-6 ####AYDEE Bruce ([id number])[facility] ([facility])[address] [place] [address] Creatinine [Mass/Vol] 0.88 mg/dL Normal 0.50-1.05 [facility] Comment on above: Performed By: #### 2 4362-6 ####AYDEE Bruce ([id number])[facility] ([facility])53519 [place] [address] Glomerular filtration rate 72 mL/min/1.73m*2 Normal >60 [facility] Comment on above: Result Comment: Calc ulations of estimated GFR are performed using the 2020 CKD-EPI Study Refit equation without the race variable for the IDMS-Traceable creatinine methods.https://jasn.asnjournals.org/content/early// N.3784158125 Performed By: #### 2 4362-6 ####AYDEE Bruce ([id number])[facility] ([facility])31068 [place] [address] Glucose [Mass/Vol] 131 mg/dL High 74-99 [facility] Comment on above: Performed By: #### 2 4362-6 ####AYDEE Bruce (63230)[facility] ([facility])[address] [place] [address] Phosphate [Mass/Vol] 2.6 mg/dL Normal 2.5-4.9 [facility] Comment on above: Performed By: #### 2 4362-6 ####AYDEE BAZZI L (45014)[facility] ([facility])[address] [place] [address] Potassium [Moles/Vol] 4.8 mmol/L Normal 3.5-5.3 [facility] Comment on above: Performed By: #### 2 4362-6 ####AYDEE Bruce (55123)[facility] ([facility])[address] [place] [address] Sodium [Moles/Vol] 132 mmol/L Low 136-145 [facility] Comment on above: Performed By: #### 2 4362-6 ####AYDEE Bruce ([id number])[facility] ([facility])[address] [place] [address]28[address] Urea nitrogen [Mass/Vol] 13 mg/dL Normal 6-23 [facility] Comment on above: Performed By: #### 2 4362-6 ####AYDEE Bruce ([id number])[facility] ([facility])[address] [place] [address] 38247 Bacteriaon 10-09-2024 Bacteria identified Respiratory culture Nom (Unsp spec) [facility] Comment on above: Performed By: #### 3 2355-0 ####AYDEE Bruce ([id number])[facility] ([facility])[address] [place] [address] 31609 Bacteria identified Cx Nom (Bld) [facility] Comment on above: Performed By: #### 6 00-7 ####AYDEE Bruce ([id number])[facility] ([facility])[address] [place] [address] 76240 Basic metabolic 2000 panelon 10-09-2024 Anion gap [Moles/Vol] 11 mmol/L Normal 10-20 [facility] Comment on above: Performed By: #### 2 4321-2 ####AYDEE Bruce ([id number])[facility] ([facility])[address] [place] [address]53 Calcium [Mass/Vol] 7.9 mg/dL Low 8.6-10.6 [facility] Comment on above: Performed By: #### 2 4321-2 ####AYDEE Bruce ([id number])[facility] ([facility])[address] [place] [address]25[address] Chloride [Moles/Vol] 100 mmol/L Normal 98-107 [facility] Comment on above: Performed By: #### 2 4321-2 ####AYDEE Bruce (95412)[facility] ([facility])31169 [place] [address] CO2 [Moles/Vol] 29 mmol/L Normal 21-32 [facility] Comment on above: Performed By: #### 2 4321-2 ####AYDEE Bruce (57451)[facility] ([facility])65282 [place] [address] Creatinine [Mass/Vol] 0.76 mg/dL Normal 0.50-1.05 [facility] Comment on above: Performed By: #### 2 4320-2 ####AYDEE Bruce (74584)[facility] ([facility])67483 [place] [address] Glomerular filtration rate 85 mL/min/1.73m*2 Normal >60 [facility] Comment on above: Result Comment: Calc ulations of estimated GFR are performed using the 2020 CKD-EPI Study Refit equation without the race variable for the IDMS-Traceable creatinine methods.https://jasn.asnjournals.org/content/early/ N.1722223704 Performed By: #### 2 4321-2 ####AYDEE Bruce ([id number])[facility] ([facility])70466 [place] [address] Glucose [Mass/Vol] 150 mg/dL High 74-99 [facility] Comment on above: Performed By: #### 2 1-2 ####AYDEE Bruce ([id number])[facility] ([facility])39939 [place] [address] Potassium [Moles/Vol] 3.7 mmol/L Normal 3.5-5.3 [facility] Comment on above: Performed By: #### 2 1-2 ####AYDEE Bruce (28643)[facility] ([facility])48034 [place] [address] Sodium [Moles/Vol] 136 mmol/L Normal 136-145 [facility] Comment on above: Performed By: #### 2 4321-2 ####AYDEE Bruce ([id number])[facility] ([facility])49495 [place] [address] Urea nitrogen [Mass/Vol] 11 mg/dL Normal 6-23 [facility] Comment on above: Performed By: #### 2 4321-2 ####AYDEE Bruce ([id number])[facility] ([facility])43662 [place] [address] CBC W Auto Differential pane l (Bld)on 10-09-2024 Basophils (Bld) [#/Vol] 0.03 x10*3/uL Normal 0.00-0.10 [facility] Comment on above: Performed By: #### 5 7021-8 ####AYDEE Bruce ([id number])[facility] ([facility])76349 [place] [address] Basophils/100 WBC (Bld) 0.3 % Normal 0.0-2.0 [facility] Comment on above: Performed By: #### 5 7021-8 ####AYDEE BAZZI L (48925)[facility] ([facility])[address]0510 [place] [address] Eosinophils (Bld) [#/Vol] 0.68 x10*3/uL Normal 0.00-0.70 [facility] Comment on above: Performed By: #### 5 7021-8 ####AYDEE BAZZI L ([id number])[facility] ([facility])02046 [place] [address] Eosinophils/100 WBC (Bld) 7.1 % Normal 0.0-6.0 [facility] Comment on above: Performed By: #### 5 7021-8 ####AYDEE BAZZI L (93521)[facility] ([facility])74265 [place] [address] Erythrocyte distribution width (RBC) [Ratio] 18.6 % High 11.5-14.5 [facility] Comment on above: Performed By: #### 5 7021-8 ####AYDEE Bruce ([id number])[facility] ([facility])65218 [place] [address] Hematocrit (Bld) [Volume fraction] 23.5 % Low 36.0-46.0 [facility] Comment on above: Performed By: #### 5 7021-8 ####AYDEE Bruce ([id number])[facility] ([facility])[address] [place] [address] 67[address] Hemoglobin (Bld) [Mass/Vol] 7.3 g/dL Low 12.0-16.0 [facility] Comment on above: Performed By: #### 5 7021-8 ####AYDEE Bruce ([id number])[facility] ([facility])[address] [place] [address] 15532 Immature granulocytes (Bld) [#/Vol] 0.07 x10*3/uL Normal 0.00-0.70 [facility] Comment on above: Performed By: #### 5 7021-8 ####AYDEE Bruce ([id number])[facility] ([facility])[address] [place] [address] 45936 Immature granulocytes/100 WBC (Bld) 0.7 % Normal 0.0-0.9 [facility] Comment on above: Result Comment: Doris ture Granulocyte Count (IG) includes promyelocytes, myelocytes and metamyelocytes but does not include bands. Percent differential counts (%) should be interpreted in the context of the absolute cell counts (cells/UL). Performed By: #### 5 7021-8 ####AYDEE Bruce ([id number])[facility] ([facility])10727 [place] [address] Lymphocytes (Bld) [#/Vol] 1.25 x10*3/uL Normal 1.20-4.80 [facility] Comment on above: Performed By: #### 5 7021-8 ####AYDEE Bruce ([id number])[facility] ([facility])98920 [place] [address] Lymphocytes/100 WBC (Bld) 13.1 % Normal 13.0-44.0 [facility] Comment on above: Performed By: #### 5 7021-8 ####AYDEE Bruce ([id number])[facility] ([facility])47804 [place] [address] MCH (RBC) [Entitic mass] 29.0 pg Normal 26.0-34.0 [facility] Comment on above: Performed By: #### 5 7021-8 ####AYDEE Bruce ([id number])[facility] ([facility])02492 [place] [address] MCHC (RBC) [Mass/Vol] 31.1 g/dL Low 32.0-36.0 [facility] Comment on above: Performed By: #### 5 7021-8 ####AYDEE Bruce ([id number])[facility] ([facility])[address]3234 [place] [address] MCV (RBC) [Entitic vol] 93 fL Normal 80-100 [facility] Comment on above: Performed By: #### 5 7021-8 ####AYDEE Bruce ([id number])[facility] ([facility])37527 [place] [address] Monocytes (Bld) [#/Vol] 0.49 x10*3/uL Normal 0.10-1.00 [facility] Comment on above: Performed By: #### 5 7021-8 ####AYDEE Bruce ([id number])[facility] ([facility])50803 [place] [address] Monocytes/100 WBC (Bld) 5.1 % Normal 2.0-10.0 [facility] Comment on above: Performed By: #### 5 7021-8 ####AYDEE Bruce ([id number])[facility] ([facility])38954 [place] [address] Neutrophils (Bld) [#/Vol] 7.02 x10*3/uL Normal 1.20-7.70 [facility] Comment on above: Result Comment: Perc ent differential counts (%) should be interpreted in the context of the absolute cell counts (cells/uL). Performed By: #### 5 7021-8 ####AYDEE Bruce ([id number])[facility] ([facility])46246 [place] [address] Neutrophils/100 WBC (Bld) 73.7 % Normal 40.0-80.0 [facility] Comment on above: Performed By: #### 5 7021-8 ####AYDEE Bruce ([id number])[facility] ([facility])32233 [place] [address] Nucleated RBC/100 WBC (Bld) [Ratio] 0.0 /100 WBCs Normal 0.0-0.0 [facility] Comment on above: Performed By: #### 5 7021-8 ####AYDEE Bruce ([id number])[facility] ([facility])89657 [place] [address] Platelets (Bld) [#/Vol] 248 x10*3/uL Normal 150-450 [facility] Comment on above: Performed By: #### 5 7021-8 ####AYDEE Bruce ([id number])[facility] ([facility])14426 [place] [address] RBC (Bld) [#/Vol] 2.52 x10*6/uL Low 4.00-5.20 [facility] Comment on above: Performed By: #### 5 7021-8 ####AYDEE BAZZI L (57013)[facility] ([facility])[address]47 [place] [address] WBC (Bld) [#/Vol] 9.5 x10*3/uL Normal 4.4-11.3 [facility] Comment on above: Performed By: #### 5 7021-8 ####AYDEE BAZZI L ([id number])[facility] ([facility])[address]18 [place] [address] Glucose Test strip manual (B ld) [Mass/Vol]on 10-09-2024 Glucose [Mass/Vol] 74 mg/dL Normal 74-99 [facility] Comment on above: Performed By: #### 2 341-6 ####AYDEE VALDEZTZLILIANA L ([id number])[facility] ([facility])[address] [place] [address] Glucose [Mass/Vol] 93 mg/dL Normal 74-99 [facility] Comment on above: Performed By: #### 2 341-6 ####AYDEE CAMILOMOJOSE E L ([id number])[facility] ([facility])[address] [place] [address] Glucose [Mass/Vol] 86 mg/dL Normal 74-99 [facility] Comment on above: Performed By: #### 2 341-6 ####AYDEE BAZZI L ([id number])[facility] ([facility])[address] [place] [address] Glucose [Mass/Vol] 118 mg/dL High [facility]99 [facility] Comment on above: Performed By: #### 2 341-6 ####AYDEE CAMILOMOTZER L ([id number])[facility] ([facility])[address] [place] [address] Glucose [Mass/Vol] 102 mg/dL High 74-99 [facility] Comment on above: Performed By: #### 2 341-6 ####AYDEE BAZZI L ([id number])[facility] ([facility])[address] [place] [address] Heparin.unfractionatedon Heparin unfractionated Chromogenic method Qn (PPP) 0.4 IU/mL Normal See Comment Below for Therapeutic Ranges [facility] Comment on above: Order Comment: Obtai n 4 hours after any Heparin dosage change. Nursing to release order.The therapeutic reference range for UFH may be either 0.3-0.6 IU/mL or 0.3-0.7 IU/mL based on the clinical setting for anticoagulant therapy and the associated nomogram used. For Heparin dosing guidelines based on clinical scenario and Heparin Assay results, please refer to local Pharmacy and the [facility] Guidelines for Anticoagulation Therapy available on the [facility] intranet at: [email or web address]_[email or web address].aspx Performed By: #### 3 274-8 ####AYDEE Bruce ([id number])[facility] ([facility])[address] [place] [address] Hepatic function 2000 panelo n 10-09-2024 Albumin BCP dye [Mass/Vol] 2.7 g/dL Low 3.4-5.0 [facility] Comment on above: Performed By: #### 2 4325-3 ####AYDEE ZHONGER L ([id number])[facility] ([facility])[address] [place] [address] ALP [Catalytic activity/Vol] 246 U/L High 33-136 [facility] Comment on above: Performed By: #### 2 4325-3 ####AYDEE BAZZI L ([id number])[facility] ([facility])[address] [place] [address] ALT With P-5'-P [Catalytic activity/Vol] 28 U/L Normal 7-45 [facility] Comment on above: Result Comment: Susan ents treated with Sulfasalazine may generate falsely decreased results for ALT. Performed By: #### 2 4325-3 ####AYDEE CAMILOMOTZER L ([id number])[facility] ([facility])[address] [place] [address] AST With P-5'-P [Catalytic activity/Vol] 60 U/L High 9-39 [facility] Comment on above: Performed By: #### 2 4325-3 ####AYDEE VALDEZTZER L (72030)[facility] ([facility])[address] [place] [address] Bilirubin [Mass/Vol] 2.3 mg/dL High 0.0-1.2 [facility] Comment on above: Performed By: #### 2 4325-3 ####AYDEE Bruce ([id number])[facility] ([facility])[address] [place] [address] Bilirubin.direct [Mass/Vol] 0.7 mg/dL High 0.0-0.3 [facility] Comment on above: Performed By: #### 2 4325-3 ####AYDEE Bruce ([id number])[facility] ([facility])[address] [place] [address] Protein [Mass/Vol] 4.6 g/dL Low 6.4-8.2 [facility] Comment on above: Performed By: #### 2 4325-3 ####AYDEE Bruce ([id number])[facility] ([facility])[address] [place] [address] Magnesiumon 10-09-2024 Magnesium [Mass/Vol] 1.85 mg/dL Normal 1.60-2.40 [facility] Comment on above: Performed By: #### 1 9123-9 ####AYDEE Bruce ([id number])[facility] ([facility])[address] [place] [address] Phosphateon 10-09-2024 Phosphate [Mass/Vol] 1.5 mg/dL Low 2.5-4.9 [facility] Comment on above: Performed By: #### 2 777-1 ####AYDEE Bruce ([id number])[facility] ([facility])[address] [place] [address] XR CHEST 1 VIEWon 10-09-2024 XR CHEST 1 VIEW [facility] Bacteriaon 10-08-2024 Bacteria identified Respiratory culture Nom (Unsp spec) Normal [facility] Comment on above: Performed By: #### 3 2355-0 ####AYDEE Bruce ([id number])[facility] ([facility])[address] [place] [address] Basic metabolic 2000 panelon 10-08-2024 Anion gap [Moles/Vol] 13 mmol/L Normal 10-20 [facility] Comment on above: Performed By: #### 2 4321-2 ####AYDEE AVLDEZTZER L ([id number])[facility] ([facility])[address] [place] [address] Calcium [Mass/Vol] 8.0 mg/dL Low 8.6-10.6 [facility] Comment on above: Performed By: #### 2 4321-2 ####AYDEE SCHMOTZER L ([id number])[facility] ([facility])[address] [place] [address] Chloride [Moles/Vol] 101 mmol/L Normal 98-107 [facility] Comment on above: Performed By: #### 2 4321-2 ####AYDEE SCHMOTZER L (93200)[facility] ([facility])[address] [place] [address] CO2 [Moles/Vol] 28 mmol/L Normal 21-32 [facility] Comment on above: Performed By: #### 2 4321-2 ####AYDEE CAMILOMOTZER L ([id number])[facility] ([facility])[address] [place] [address] Creatinine [Mass/Vol] 1.60 mg/dL High 0.50-1.05 [facility] Comment on above: Performed By: #### 2 4321-2 ####AYDEE CAMILOMOTZER L ([id number])[facility] ([facility])[address]42 [place] [address] Glomerular filtration rate 35 mL/min/1.73m*2 Low >60 [facility] Comment on above: Result Comment: Calc ulations of estimated GFR are performed using the 2020 CKD-EPI Study Refit equation without the race variable for the IDMS-Traceable creatinine methods.https://jasn.asnjournals.org/content/early// N.7117078522 Performed By: #### 2 4321-2 ####AYDEE Bruce ([id number])[facility] ([facility])[address]33 [place] [address] Glucose [Mass/Vol] 125 mg/dL High 74-99 [facility] Comment on above: Performed By: #### 2 4321-2 ####AYDEE Bruce ([id number])[facility] ([facility])[address]190 [place] [address] Potassium [Moles/Vol] 3.5 mmol/L Normal 3.5-5.3 [facility] Comment on above: Performed By: #### 2 4321-2 ####AYDEE Bruce ([id number])[facility] ([facility])[address]22 [place] [address] Sodium [Moles/Vol] 138 mmol/L Normal 136-145 [facility] Comment on above: Performed By: #### 2 4321-2 ####AYDEE Bruce ([id number])[facility] ([facility])[address]502 [place] [address] Urea nitrogen [Mass/Vol] 24 mg/dL High 6-23 [facility] Comment on above: Performed By: #### 2 4321-2 ####AYDEE Bruce ([id number])[facility] ([facility])[address]83 [place] [address] CBC W Auto Differential pane l (Bld)on 10-08-2024 Basophils (Bld) [#/Vol] 0.02 x10*3/uL Normal 0.00-0.10 [facility] Comment on above: Performed By: #### 5 7021-8 ####AYDEE Bruce ([id number])[facility] ([facility])[address] [place] [address] Basophils/100 WBC (Bld) 0.2 % Normal 0.0-2.0 [facility] Comment on above: Performed By: #### 5 7021-8 ####AYDEE Bruce ([id number])[facility] ([facility])[address]168 [place] [address] Eosinophils (Bld) [#/Vol] 0.69 x10*3/uL Normal 0.00-0.70 [facility] Comment on above: Performed By: #### 5 7021-8 ####AYDEE Bruce ([id number])[facility] ([facility])[address]019 [place] [address] Eosinophils/100 WBC (Bld) 7.1 % Normal 0.0-6.0 [facility] Comment on above: Performed By: #### 5 7021-8 ####AYDEE Bruce ([id number])[facility] ([facility])[address] [place] [address] Erythrocyte distribution width (RBC) [Ratio] 18.2 % High 11.5-14.5 [facility] Comment on above: Performed By: #### 5 7021-8 ####AYDEE Bruce ([id number])[facility] ([facility])[address] [place] [address] Hematocrit (Bld) [Volume fraction] 22.7 % Low 36.0-46.0 [facility] Comment on above: Performed By: #### 5 7021-8 ####AYDEE Bruce ([id number])[facility] ([facility])[address]1961 [place] [address] Hemoglobin (Bld) [Mass/Vol] 7.4 g/dL Low 12.0-16.0 [facility] Comment on above: Performed By: #### 5 7021-8 ####AYDEE Bruce ([id number])[facility] ([facility])[address] [place] [address] Immature granulocytes (Bld) [#/Vol] 0.08 x10*3/uL Normal 0.00-0.70 [facility] Comment on above: Performed By: #### 5 7021-8 ####AYDEE Bruce ([id number])[facility] ([facility])[address]33 [place] [address] Immature granulocytes/100 WBC (Bld) 0.8 % Normal 0.0-0.9 [facility] Comment on above: Result Comment: Doris ture Granulocyte Count (IG) includes promyelocytes, myelocytes and metamyelocytes but does not include bands. Percent differential counts (%) should be interpreted in the context of the absolute cell counts (cells/UL). Performed By: #### 5 7021-8 ####AYDEE Bruce ([id number])[facility] ([facility])[address]20 [place] [address] Lymphocytes (Bld) [#/Vol] 1.01 x10*3/uL Low 1.20-4.80 [facility] Comment on above: Performed By: #### 5 7021-8 ####AYDEE Bruce ([id number])[facility] ([facility])[address]50 [place] [address] Lymphocytes/100 WBC (Bld) 10.3 % Normal 13.0-44.0 [facility] Comment on above: Performed By: #### 5 7021-8 ####AYDEE Bruce ([id number])[facility] ([facility])[address]32 [place] [address] MCH (RBC) [Entitic mass] 29.5 pg Normal 26.0-34.0 [facility] Comment on above: Performed By: #### 5 7021-8 ####AYDEE Bruce ([id number])[facility] ([facility])[address]994 [place] [address] MCHC (RBC) [Mass/Vol] 32.6 g/dL Normal 32.0-36.0 [facility] Comment on above: Performed By: #### 5 7021-8 ####AYDEE Bruce ([id number])[facility] ([facility])[address] [place] [address] MCV (RBC) [Entitic vol] 90 fL Normal 80-100 [facility] Comment on above: Performed By: #### 5 7021-8 ####AYDEE Bruce ([id number])[facility] ([facility])[address] [place] [address] Monocytes (Bld) [#/Vol] 0.45 x10*3/uL Normal 0.10-1.00 [facility] Comment on above: Performed By: #### 5 7021-8 ####AYDEE Bruce ([id number])[facility] ([facility])[address]598 [place] [address] Monocytes/100 WBC (Bld) 4.6 % Normal 2.0-10.0 [facility] Comment on above: Performed By: #### 5 7021-8 ####AYDEE Bruce ([id number])[facility] ([facility])[address] [place] [address] Neutrophils (Bld) [#/Vol] 7.52 x10*3/uL Normal 1.20-7.70 [facility] Comment on above: Result Comment: Perc ent differential counts (%) should be interpreted in the context of the absolute cell counts (cells/uL). Performed By: #### 5 7021-8 ####AYDEE Bruce ([id number])[facility] ([facility])[address]28 [place] [address] Neutrophils/100 WBC (Bld) 77.0 % Normal 40.0-80.0 [facility] Comment on above: Performed By: #### 5 7021-8 ####AYDEE Bruce ([id number])[facility] ([facility])[address]30 [place] [address] Nucleated RBC/100 WBC (Bld) [Ratio] 0.0 /100 WBCs Normal 0.0-0.0 [facility] Comment on above: Performed By: #### 5 7021-8 ####AYDEE Bruce ([id number])[facility] ([facility])[address]76 [place] [address] Platelets (Bld) [#/Vol] 206 x10*3/uL Normal 150-450 [facility] Comment on above: Performed By: #### 5 7021-8 ####AYDEE Bruce ([id number])[facility] ([facility])[address]20 [place] [address] RBC (Bld) [#/Vol] 2.51 x10*6/uL Low 4.00-5.20 [facility] Comment on above: Performed By: #### 5 7021-8 ####AYDEE Bruce (75630)[facility] ([facility])[address]652 [place] [address] WBC (Bld) [#/Vol] 9.8 x10*3/uL Normal 4.4-11.3 [facility] Comment on above: Performed By: #### 5 7021-8 ####AYDEE Bruce ([id number])[facility] ([facility])[address] [place] [address] Glucose Test strip manual (B ld) [Mass/Vol]on 10-08-2024 Glucose [Mass/Vol] 92 mg/dL Normal 74-99 [facility] Comment on above: Performed By: #### 2 341-6 ####AYDEE Bruce ([id number])[facility] ([facility])[address]38 [place] [address] Glucose [Mass/Vol] 110 mg/dL High 74-99 [facility] Comment on above: Performed By: #### 2 341-6 ####AYDEE Bruce ([id number])[facility] ([facility])[address] [place] [address] Heparin.unfractionatedon Heparin unfractionated Chromogenic method Qn (PPP) 0.4 IU/mL Normal See Comment Below for Therapeutic Ranges [facility] Comment on above: Order Comment: Obtai n 4 hours after any Heparin dosage change. Nursing to release order.The therapeutic reference range for UFH may be either 0.3-0.6 IU/mL or 0.3-0.7 IU/mL based on the clinical setting for anticoagulant therapy and the associated nomogram used. For Heparin dosing guidelines based on clinical scenario and Heparin Assay results, please refer to local Pharmacy and the [facility] Guidelines for Anticoagulation Therapy available on the [facility] intranet at: [email or web address] Performed By: #### 3 274-8 ####AYDEE Bruec ([id number])[facility] ([facility])[address]75 [place] [address] Hepatic function 2000 panelo n 10-08-2024 Albumin BCP dye [Mass/Vol] 2.8 g/dL Low 3.4-5.0 [facility] Comment on above: Performed By: #### 2 4325-3 ####AYDEE Bruce ([id number])[facility] ([facility])[address]193 [place] [address] ALP [Catalytic activity/Vol] 270 U/L High 33-136 [facility] Comment on above: Performed By: #### 2 4325-3 ####AYDEE Bruce ([id number])[facility] ([facility])[address]68 [place] [address] ALT With P-5'-P [Catalytic activity/Vol] 32 U/L Normal 7-45 [facility] Comment on above: Result Comment: Susan ents treated with Sulfasalazine may generate falsely decreased results for ALT. Performed By: #### 2 4325-3 ####AYDEE Bruce ([id number])[facility] ([facility])[address]25 [place] [address] AST With P-5'-P [Catalytic activity/Vol] 83 U/L High 9-39 [facility] Comment on above: Performed By: #### 2 4325-3 ####AYDEE Bruce (22709)[facility] ([facility])[address]873 [place] [address] Bilirubin [Mass/Vol] 2.3 mg/dL High 0.0-1.2 [facility] Comment on above: Performed By: #### 2 4325-3 ####AYDEE Bruce ([id number])[facility] ([facility])[address]87 [place] [address] Bilirubin.direct [Mass/Vol] 0.8 mg/dL High 0.0-0.3 [facility] Comment on above: Performed By: #### 2 4325-3 ####AYDEE Bruce (51252)[facility] ([facility])[address]36 [place] [address] Protein [Mass/Vol] 4.9 g/dL Low 6.4-8.2 [facility] Comment on above: Performed By: #### 2 4325-3 ####AYDEE Bruce ([id number])[facility] ([facility])[address] [place] [address] Magnesiumon 10-08-2024 Magnesium [Mass/Vol] 1.98 mg/dL Normal 1.60-2.40 [facility] Comment on above: Performed By: #### 1 9123-9 ####AYDEE Bruce ([id number])[facility] ([facility])[address]95 [place] [address] Phosphateon 10-08-2024 Phosphate [Mass/Vol] 2.6 mg/dL Normal 2.5-4.9 [facility] Comment on above: Performed By: #### 2 777-1 ####AYDEE Bruce ([id number])[facility] ([facility])[address]777 [place] [address] XR CHEST 1 VIEWon 10-08-2024 XR CHEST 1 VIEW Normal [facility] Basic metabolic 2000 panelon 10-07-2024 Anion gap [Moles/Vol] 14 mmol/L Normal 10-20 [facility] Comment on above: Performed By: #### 2 4321-2 ####AYDEE Bruce ([id number])[facility] ([facility])[address]46 [place] [address] Calcium [Mass/Vol] 8.2 mg/dL Low 8.6-10.6 [facility] Comment on above: Performed By: #### 2 4321-2 ####AYDEE BAZZI L (70021)[facility] ([facility])[address]128 [place] [address] Chloride [Moles/Vol] 97 mmol/L Low 98-107 [facility] Comment on above: Performed By: #### 2 4321-2 ####AYDEE CAMILOMOTZER L (42868)[facility] ([facility])[address]45 [place] [address] CO2 [Moles/Vol] 27 mmol/L Normal 21-32 [facility] Comment on above: Performed By: #### 2 4321-2 ####AYDEE BAZZI L ([id number])[facility] ([facility])[address]86 [place] [address] Creatinine [Mass/Vol] 2.93 mg/dL High 0.50-1.05 [facility] Comment on above: Performed By: #### 2 4321-2 ####AYDEE BAZZI L ([id number])[facility] ([facility])[address]333 [place] [address] Glomerular filtration rate 17 mL/min/1.73m*2 Low >60 [facility] Comment on above: Result Comment: Calc ulations of estimated GFR are performed using the 2020 CKD-EPI Study Refit equation without the race variable for the IDMS-Traceable creatinine methods.https://jasn.asnjournals.org/content/early// N.3264375397 Performed By: #### 2 4321-2 ####AYDEE VALDEZTZER L ([id number])[facility] ([facility])[address]312 [place] [address] Glucose [Mass/Vol] 104 mg/dL High 74-99 [facility] Comment on above: Performed By: #### 2 4321-2 ####AYDEE CAMILOMOTZER L ([id number])[facility] ([facility])[address]991 [place] [address] Potassium [Moles/Vol] 5.4 mmol/L High 3.5-5.3 [facility] Comment on above: Performed By: #### 2 4321-2 ####AYDEE Bruce ([id number])[facility] ([facility])[address]01 [place] [address] Sodium [Moles/Vol] 133 mmol/L Low 136-145 [facility] Comment on above: Performed By: #### 2 4321-2 ####AYDEE Bruce ([id number])[facility] ([facility])[address]29 [place] [address] Urea nitrogen [Mass/Vol] 52 mg/dL High 6-23 [facility] Comment on above: Performed By: #### 2 4321-2 ####AYDEE Bruce ([id number])[facility] ([facility])[address]1900 [place] [address] CBC W Auto Differential pane l (Bld)on 10-07-2024 Basophils (Bld) [#/Vol] 0.03 x10*3/uL Normal 0.00-0.10 [facility] Comment on above: Performed By: #### 5 7021-8 ####AYDEE Bruce ([id number])[facility] ([facility])[address]561 [place] [address] Basophils/100 WBC (Bld) 0.3 % Normal 0.0-2.0 [facility] Comment on above: Performed By: #### 5 7021-8 ####AYDEE Bruce ([id number])[facility] ([facility])[address]662 [place] [address] Eosinophils (Bld) [#/Vol] 1.01 x10*3/uL High 0.00-0.70 [facility] Comment on above: Performed By: #### 5 7021-8 ####AYDEE Bruce ([id number])[facility] ([facility])[address]26 [place] [address] Eosinophils/100 WBC (Bld) 8.8 % Normal 0.0-6.0 [facility] Comment on above: Performed By: #### 5 7021-8 ####AYDEE Bruce ([id number])[facility] ([facility])[address]186 [place] [address] Erythrocyte distribution width (RBC) [Ratio] 19.1 % High 11.5-14.5 [facility] Comment on above: Performed By: #### 5 7021-8 ####AYDEE Bruce ([id number])[facility] ([facility])[address]77 [place] [address] Hematocrit (Bld) [Volume fraction] 23.4 % Low 36.0-46.0 [facility] Comment on above: Performed By: #### 5 7021-8 ####AYDEE Bruce ([id number])[facility] ([facility])[address]797 [place] [address] Hemoglobin (Bld) [Mass/Vol] 7.7 g/dL Low 12.0-16.0 [facility] Comment on above: Performed By: #### 5 7021-8 ####AYDEE Bruce ([id number])[facility] ([facility])[address]013 [place] [address] Immature granulocytes (Bld) [#/Vol] 0.11 x10*3/uL Normal 0.00-0.70 [facility] Comment on above: Performed By: #### 5 7021-8 ####AYDEE Bruce ([id number])[facility] ([facility])[address]22 [place] [address] Immature granulocytes/100 WBC (Bld) 1.0 % High 0.0-0.9 [facility] Comment on above: Result Comment: Doris ture Granulocyte Count (IG) includes promyelocytes, myelocytes and metamyelocytes but does not include bands. Percent differential counts (%) should be interpreted in the context of the absolute cell counts (cells/UL). Performed By: #### 5 7021-8 ####AYDEE Bruce ([id number])[facility] ([facility])[address]84 [place] [address] Lymphocytes (Bld) [#/Vol] 1.33 x10*3/uL Normal 1.20-4.80 [facility] Comment on above: Performed By: #### 5 7021-8 ####AYDEE Bruce ([id number])[facility] ([facility])[address]95 [place] [address] Lymphocytes/100 WBC (Bld) 11.6 % Normal 13.0-44.0 [facility] Comment on above: Performed By: #### 5 7021-8 ####AYDEE Bruce ([id number])[facility] ([facility])[id number] [place] [address] MCH (RBC) [Entitic mass] 30.2 pg Normal 26.0-34.0 [facility] Comment on above: Performed By: #### 5 7021-8 ####AYDEE Bruce (54406)[facility] ([facility])[address]09 [place] [address] MCHC (RBC) [Mass/Vol] 32.9 g/dL Normal 32.0-36.0 [facility] Comment on above: Performed By: #### 5 7021-8 ####AYDEE Bruce ([id number])[facility] ([facility])[address]64 [place] [address] MCV (RBC) [Entitic vol] 92 fL Normal 80-100 [facility] Comment on above: Performed By: #### 5 7021-8 ####AYDEE Bruce (67852)[facility] ([facility])[address]32 [place] [address] Monocytes (Bld) [#/Vol] 0.71 x10*3/uL Normal 0.10-1.00 [facility] Comment on above: Performed By: #### 5 7021-8 ####AYDEE Bruce ([id number])[facility] ([facility])[address]54 [place] [address] Monocytes/100 WBC (Bld) 6.2 % Normal 2.0-10.0 [facility] Comment on above: Performed By: #### 5 7021-8 ####AYDEE Bruce ([id number])[facility] ([facility])[address]83 [place] [address] Neutrophils (Bld) [#/Vol] 8.32 x10*3/uL High 1.20-7.70 [facility] Comment on above: Result Comment: Perc ent differential counts (%) should be interpreted in the context of the absolute cell counts (cells/uL). Performed By: #### 5 7021-8 ####AYDEE Bruce ([id number])[facility] ([facility])[address]79 [place] [address] Neutrophils/100 WBC (Bld) 72.1 % Normal 40.0-80.0 [facility] Comment on above: Performed By: #### 5 7021-8 ####AYDEE Bruce ([id number])[facility] ([facility])[address]01 [place] [address] Nucleated RBC/100 WBC (Bld) [Ratio] 0.0 /100 WBCs Normal 0.0-0.0 [facility] Comment on above: Performed By: #### 5 7021-8 ####AYDEE Bruce ([id number])[facility] ([facility])[address]50 [place] [address] Platelets (Bld) [#/Vol] 185 x10*3/uL Normal 150-450 [facility] Comment on above: Performed By: #### 5 7021-8 ####AYDEE Bruce ([id number])[facility] ([facility])[address]66 [place] [address] RBC (Bld) [#/Vol] 2.55 x10*6/uL Low 4.00-5.20 [facility] Comment on above: Performed By: #### 5 7021-8 ####AYDEE Bruce ([id number])[facility] ([facility])[address]262 [place] [address] WBC (Bld) [#/Vol] 11.5 x10*3/uL High 4.4-11.3 [facility] Comment on above: Performed By: #### 5 7021-8 ####AYDEE Bruce ([id number])[facility] ([facility])[address] [place] [address] Glucose Test strip manual (B ld) [Mass/Vol]on 10-07-2024 Glucose [Mass/Vol] 103 mg/dL High 74-99 [facility] Comment on above: Performed By: #### 2 341-6 ####AYDEE Bruce ([id number])[facility] ([facility])[address] [place] [address] Glucose [Mass/Vol] 102 mg/dL High -99 [facility] Comment on above: Performed By: #### 2 341-6 ####AYDEE Bruce ([id number])[facility] ([facility])[address] [place] [address] Glucose [Mass/Vol] 116 mg/dL High 74-99 [facility] Comment on above: Performed By: #### 2 341-6 ####AYDEE Bruce ([id number])[facility] ([facility])[address] [place] [address] Glucose [Mass/Vol] 108 mg/dL High 74-99 [facility] Comment on above: Performed By: #### 2 341-6 ####AYDEE Bruce ([id number])[facility] ([facility])[address] [place] [address] Glucose [Mass/Vol] 98 mg/dL Normal 74-99 [facility] Comment on above: Performed By: #### 2 341-6 ####AYDEE Bruce ([id number])[facility] ([facility])[address] [place] [address] Heparin.unfractionatedon Heparin unfractionated Chromogenic method Qn (PPP) 0.5 IU/mL Normal See Comment Below for Therapeutic Ranges [facility] Comment on above: Order Comment: Obtai n 4 hours after any Heparin dosage change. Nursing to release order.The therapeutic reference range for UFH may be either 0.3-0.6 IU/mL or 0.3-0.7 IU/mL based on the clinical setting for anticoagulant therapy and the associated nomogram used. For Heparin dosing guidelines based on clinical scenario and Heparin Assay results, please refer to local Pharmacy and the [facility] Guidelines for Anticoagulation Therapy available on the [facility] intranet at: [email or web address] Performed By: #### 3 274-8 ####AYDEE Bruce ([id number])[facility] ([facility])[id number] [place] [address] 27472 Hepatic function 2000 panelo n 10-07-2024 Albumin BCP dye [Mass/Vol] 2.6 g/dL Low 3.4-5.0 [facility] Comment on above: Performed By: #### 2 4325-3 ####AYDEE Bruce ([id number])[facility] ([facility])[address] [place] [address] ALP [Catalytic activity/Vol] 232 U/L High 33-136 [facility] Comment on above: Performed By: #### 2 4325-3 ####AYDEE Bruce ([id number])[facility] ([facility])[address]374 [place] [address] ALT With P-5'-P [Catalytic activity/Vol] 28 U/L Normal 7-45 [facility] Comment on above: Result Comment: Susan ents treated with Sulfasalazine may generate falsely decreased results for ALT. Performed By: #### 2 4325-3 ####AYDEE Bruce ([id number])[facility] ([facility])[address] [place] [address] AST With P-5'-P [Catalytic activity/Vol] 68 U/L High 9-39 [facility] Comment on above: Performed By: #### 2 4325-3 ####AYDEE Bruce ([id number])[facility] ([facility])[address] [place] [address] 54128 Bilirubin [Mass/Vol] 1.9 mg/dL High 0.0-1.2 [facility] Comment on above: Performed By: #### 2 4325-3 ####AYDEE Bruce ([id number])[facility] ([facility])[address] [place] [address] 40254 Bilirubin.direct [Mass/Vol] 0.6 mg/dL High 0.0-0.3 [facility] Comment on above: Performed By: #### 2 4325-3 ####AYDEE Bruce ([id number])[facility] ([facility])[address] [place] [address] Protein [Mass/Vol] 4.8 g/dL Low 6.4-8.2 [facility] Comment on above: Performed By: #### 2 4325-3 ####AYDEE Bruce ([id number])[facility] ([facility])[address] [place] [address] 98914 Hepatitis B virus surface Ab on 10-07-2024 HBV surface Ab Qn (S) 4.8 mIU/mL Normal <10.0 [facility] Comment on above: Result Comment: Inte rpretive Criteria: <10 mIU/mL Nonreactive >=10 mIU/mL ReactiveBiotin interference may cause falsely decreased results. Patients taking a Biotin dose of up to 5 mg/day should refrain from taking Biotin for 24 hours before sample collection. Providers may contact their local laboratory for further information. Performed By: #### 1 6935-9 ####AYDEE Bruce ([id number])[facility] ([facility])[address] [place] [address] 40884 Magnesiumon 10-07-2024 Magnesium [Mass/Vol] 2.30 mg/dL Normal 1.60-2.40 [facility] Comment on above: Performed By: #### 1 9123-9 ####AYDEE Bruce ([id number])[facility] ([facility])[address]110 [place] [address] Phosphateon 10-07-2024 Phosphate [Mass/Vol] 4.8 mg/dL Normal 2.5-4.9 [facility] Comment on above: Performed By: #### 2 777-1 ####AYDEE Bruce ([id number])[facility] ([facility])[address] [place] [address] 40043 Renal function 2000 panelon 10-07-2024 Albumin BCP dye [Mass/Vol] 2.5 g/dL Low 3.4-5.0 [facility] Comment on above: Performed By: #### 2 4362-6 ####AYDEE Bruce ([id number])[facility] ([facility])[address] [place] [address] 62305 Anion gap [Moles/Vol] 14 mmol/L Normal 10-20 [facility] Comment on above: Performed By: #### 2 4362-6 ####AYDEE Bruce ([id number])[facility] ([facility])[address] [place] [address] 16814 Calcium [Mass/Vol] 8.0 mg/dL Low 8.6-10.6 [facility] Comment on above: Performed By: #### 2 4362-6 ####AYDEE Bruce ([id number])[facility] ([facility])[address] [place] [address] 26915 Chloride [Moles/Vol] 97 mmol/L Low 98-107 [facility] Comment on above: Performed By: #### 2 4362-6 ####AYDEE Bruce ([id number])[facility] ([facility])[address] [place] [address] 72383 CO2 [Moles/Vol] 27 mmol/L Normal 21-32 [facility] Comment on above: Performed By: #### 2 4362-6 ####AYDEE Bruce ([id number])[facility] ([facility])[address] [place] [address] Creatinine [Mass/Vol] 3.24 mg/dL High 0.50-1.05 [facility] Comment on above: Performed By: #### 2 4362-6 ####AYDEE Bruce ([id number])[facility] ([facility])[address] [place] [address] Glomerular filtration rate 15 mL/min/1.73m*2 Low >60 [facility] Comment on above: Result Comment: Calc ulations of estimated GFR are performed using the 2020 CKD-EPI Study Refit equation without the race variable for the IDMS-Traceable creatinine methods.https://jasn.asnjournals.org/content/early// N.4379282713 Performed By: #### 2 4362-6 ####AYDEE Bruce (56876)[facility] ([facility])[address] [place] [address] Glucose [Mass/Vol] 122 mg/dL High 74-99 [facility] Comment on above: Performed By: #### 2 4362-6 ####AYDEE Bruce (71654)[facility] ([facility])[address] [place] [address] Phosphate [Mass/Vol] 5.2 mg/dL High 2.5-4.9 [facility] Comment on above: Performed By: #### 2 4362-6 ####AYDEE Bruce (53785)[facility] ([facility])[address]643 [place] [address] Potassium [Moles/Vol] 5.1 mmol/L Normal 3.5-5.3 [facility] Comment on above: Performed By: #### 2 4362-6 ####AYDEE Bruce ([id number])[facility] ([facility])[address] [facility] [address] Sodium [Moles/Vol] 133 mmol/L Low 136-145 [facility] Comment on above: Performed By: #### 2 4362-6 ####AYDEE Bruce (55853)[facility] ([facility])[address]347 [place] [address] Urea nitrogen [Mass/Vol] 58 mg/dL High 6-23 [facility] Comment on above: Performed By: #### 2 4362-6 ####AYDEE Bruce (45974)[facility] ([facility])[address]65 [place] [address] XR CHEST 1 VIEWon 10-07-2024 XR CHEST 1 VIEW Normal [facility] Basic metabolic 2000 panelon 10-06-2024 Anion gap [Moles/Vol] 15 mmol/L Normal 10-20 [facility] Comment on above: Performed By: #### 2 4321-2 ####AYDEE Bruce ([id number])[facility] ([facility])[address]856 [place] [address] Calcium [Mass/Vol] 7.8 mg/dL Low 8.6-10.6 [facility] Comment on above: Performed By: #### 2 4321-2 ####AYDEE Bruce ([id number])[facility] ([facility])[address]892 [place] [address] Chloride [Moles/Vol] 100 mmol/L Normal 98-107 [facility] Comment on above: Performed By: #### 2 4321-2 ####AYDEE Bruce ([id number])[facility] ([facility])[address]702 [place] [address] CO2 [Moles/Vol] 27 mmol/L Normal 21-32 [facility] Comment on above: Performed By: #### 2 4321-2 ####AYDEE Bruce ([id number])[facility] ([facility])[address]24 [place] [address] Creatinine [Mass/Vol] 1.88 mg/dL High 0.50-1.05 [facility] Comment on above: Performed By: #### 2 4321-2 ####AYDEE BAZZI L (85771)[facility] ([facility])[address]1024 [place] [address] Glomerular filtration rate 29 mL/min/1.73m*2 Low >60 [facility] Comment on above: Result Comment: Calc ulations of estimated GFR are performed using the 2020 CKD-EPI Study Refit equation without the race variable for the IDMS-Traceable creatinine methods.https://jasn.asnjournals.org/content/early/ N.4236801599 Performed By: #### 2 4321-2 ####AYDEE BAZZI L ([id number])[facility] ([facility])[address] [place] [address] 55450 Glucose [Mass/Vol] 132 mg/dL High 74-99 [facility] Comment on above: Performed By: #### 2 4321-2 ####AYDEE BAZZI L ([id number])[facility] ([facility])[address]89 [place] [address] Potassium [Moles/Vol] 4.7 mmol/L Normal 3.5-5.3 [facility] Comment on above: Performed By: #### 2 4321-2 ####AYDEE CAMILOMOTZER L (54971)[facility] ([facility])[address]39 [place] [address] Sodium [Moles/Vol] 137 mmol/L Normal 136-145 [facility] Comment on above: Performed By: #### 2 4321-2 ####AYDEE CAMILOMOTZER L (04652)[facility] ([facility])[address]22 [place] [address] Urea nitrogen [Mass/Vol] 36 mg/dL High 6-23 [facility] Comment on above: Performed By: #### 2 4321-2 ####AYDEE CAMILOMOTZER L (23538)[facility] ([facility])[address]41 [place] [address] CBC W Auto Differential pane l (Bld)on 10-06-2024 Basophils (Bld) [#/Vol] 0.06 x10*3/uL Normal 0.00-0.10 [facility] Comment on above: Performed By: #### 5 7021-8 ####AYDEE Bruce (94976)[facility] ([facility])[address]1952 [place] [address] Basophils/100 WBC (Bld) 0.4 % Normal 0.0-2.0 [facility] Comment on above: Performed By: #### 5 7021-8 ####AYDEE Bruce (21081)[facility] ([facility])[address]053 [place] [address] Eosinophils (Bld) [#/Vol] 1.02 x10*3/uL High 0.00-0.70 [facility] Comment on above: Performed By: #### 5 7021-8 ####AYDEE Bruce ([id number])[facility] ([facility])[address]145 [place] [address] Eosinophils/100 WBC (Bld) 7.1 % Normal 0.0-6.0 [facility] Comment on above: Performed By: #### 5 7021-8 ####AYDEE Bruce ([id number])[facility] ([facility])[address]23 [place] [address] Erythrocyte distribution width (RBC) [Ratio] 20.0 % High 11.5-14.5 [facility] Comment on above: Performed By: #### 5 7021-8 ####AYDEE Bruce ([id number])[facility] ([facility])[address]52 [place] [address] Hematocrit (Bld) [Volume fraction] 24.0 % Low 36.0-46.0 [facility] Comment on above: Performed By: #### 5 7021-8 ####AYDEE Bruce ([id number])[facility] ([facility])[address]44 [place] [address] Hemoglobin (Bld) [Mass/Vol] 7.7 g/dL Low 12.0-16.0 [facility] Comment on above: Performed By: #### 5 7021-8 ####AYDEE Bruce (50589)[facility] ([facility])[address]237 [place] [address] Immature granulocytes (Bld) [#/Vol] 0.17 x10*3/uL Normal 0.00-0.70 [facility] Comment on above: Performed By: #### 5 7021-8 ####AYDEE BAZZI L ([id number])[facility] ([facility])[address]851 [place] [address] Immature granulocytes/100 WBC (Bld) 1.2 % High 0.0-0.9 [facility] Comment on above: Result Comment: Doris ture Granulocyte Count (IG) includes promyelocytes, myelocytes and metamyelocytes but does not include bands. Percent differential counts (%) should be interpreted in the context of the absolute cell counts (cells/UL). Performed By: #### 5 7021-8 ####AYDEE Bruce ([id number])[facility] ([facility])[address] [place] [address]6562 Lymphocytes (Bld) [#/Vol] 1.48 x10*3/uL Normal 1.20-4.80 [facility] Comment on above: Performed By: #### 5 7021-8 ####AYDEE Bruce (75046)[facility] ([facility])[address]87 [place] [address] Lymphocytes/100 WBC (Bld) 10.3 % Normal 13.0-44.0 [facility] Comment on above: Performed By: #### 5 7021-8 ####AYDEE Bruce ([id number])[facility] ([facility])18644 [place] [address] MCH (RBC) [Entitic mass] 29.3 pg Normal 26.0-34.0 [facility] Comment on above: Performed By: #### 5 7021-8 ####ADYEE Bruce (69363)[facility] ([facility])[address]654 [place] [address] MCHC (RBC) [Mass/Vol] 32.1 g/dL Normal 32.0-36.0 [facility] Comment on above: Performed By: #### 5 7021-8 ####AYDEE Bruce ([id number])[facility] ([facility])[address]74 [place] [address] MCV (RBC) [Entitic vol] 91 fL Normal 80-100 [facility] Comment on above: Performed By: #### 5 7021-8 ####AYDEE Bruce (50372)[facility] ([facility])[address]143 [place] [address] Monocytes (Bld) [#/Vol] 0.85 x10*3/uL Normal 0.10-1.00 [facility] Comment on above: Performed By: #### 5 7021-8 ####AYDEE Bruce (90309)[facility] ([facility])06345 [place] [address] Monocytes/100 WBC (Bld) 5.9 % Normal 2.0-10.0 [facility] Comment on above: Performed By: #### 5 7021-8 ####AYDEE Bruce (24893)[facility] ([facility])[address]370 [place] [address] Neutrophils (Bld) [#/Vol] 10.84 x10*3/uL High 1.20-7.70 [facility] Comment on above: Result Comment: Perc ent differential counts (%) should be interpreted in the context of the absolute cell counts (cells/uL). Performed By: #### 5 7021-8 ####AYDEE Bruce ([id number])[facility] ([facility])[address]100 [place] [address] Neutrophils/100 WBC (Bld) 75.1 % Normal 40.0-80.0 [facility] Comment on above: Performed By: #### 5 7021-8 ####AYDEE Bruce (53687)[facility] ([facility])[address]012 [place] [address] Nucleated RBC/100 WBC (Bld) [Ratio] 0.0 /100 WBCs Normal 0.0-0.0 [facility] Comment on above: Performed By: #### 5 7021-8 ####AYDEE Bruce ([id number])[facility] ([facility])[address]79 [place] [address] Platelets (Bld) [#/Vol] 174 x10*3/uL Normal 150-450 [facility] Comment on above: Performed By: #### 5 7021-8 ####AYDEE Bruce ([id number])[facility] ([facility])[address]155 [place] [address] RBC (Bld) [#/Vol] 2.63 x10*6/uL Low 4.00-5.20 [facility] Comment on above: Performed By: #### 5 7021-8 ####AYDEE Bruce (10512)[facility] ([facility])[address]886 [place] [address] WBC (Bld) [#/Vol] 14.4 x10*3/uL High 4.4-11.3 [facility] Comment on above: Performed By: #### 5 7021-8 ####AYDEE Bruce ([id number])[facility] ([facility])[address]168 [place] [address] Calcidiolon 10-06-2024 25-hydroxyvitamin D3 [Mass/Vol] 34 ng/mL Normal 30-100 [facility] Comment on above: Order Comment: Defic iency: < 20 ng/mlInsufficiency: 20-29 ng/mlSufficiency: 30-100 ng/mlThis assay accurately quantifies the sum of Vitamin D3, 25-Hydroxy and Vitamin D2,25-Hydroxy. Performed By: #### 1 989-3 ####AYDEE Bruce ([id number])[facility] ([facility])[address]226 [place] [address] Glucose Test strip manual (B ld) [Mass/Vol]on 10-06-2024 Glucose [Mass/Vol] 91 mg/dL Normal 74-99 [facility] Comment on above: Performed By: #### 2 341-6 ####AYDEE Bruce (23137)[facility] ([facility])[address]47 [place] [address] Glucose [Mass/Vol] 93 mg/dL Normal 74-99 [facility] Comment on above: Result Comment: VIVIAN GEE Performed By: #### 2 341-6 ####AYDEE Bruce ([id number])[facility] ([facility])88479 [place] [address] Heparin.unfractionatedon Heparin unfractionated Chromogenic method Qn (PPP) 0.5 IU/mL Normal See Comment Below for Therapeutic Ranges [facility] Comment on above: Order Comment: Obtai n 4 hours after any Heparin dosage change. Nursing to release order.The therapeutic reference range for UFH may be either 0.3-0.6 IU/mL or 0.3-0.7 IU/mL based on the clinical setting for anticoagulant therapy and the associated nomogram used. For Heparin dosing guidelines based on clinical scenario and Heparin Assay results, please refer to local Pharmacy and the [facility] Guidelines for Anticoagulation Therapy available on the [facility] intranet at: [email or web address] Performed By: #### 3 274-8 ####AYDEE Bruce (10443)[facility] ([facility])[address]06 [place] [address] Hepatic function 2000 panelo n 10-06-2024 Albumin BCP dye [Mass/Vol] 2.6 g/dL Low 3.4-5.0 [facility] Comment on above: Performed By: #### 2 4325-3 ####AYDEE Bruce ([id number])[facility] ([facility])39165 [place] [address] ALP [Catalytic activity/Vol] 229 U/L High 33-136 [facility] Comment on above: Performed By: #### 2 4325-3 ####AYDEE Bruce ([id number])[facility] ([facility])[address]01 [place] [address] ALT With P-5'-P [Catalytic activity/Vol] 31 U/L Normal 7-45 [facility] Comment on above: Result Comment: Susan ents treated with Sulfasalazine may generate falsely decreased results for ALT. Performed By: #### 2 4325-3 ####AYDEE Bruce ([id number])[facility] ([facility])[address]64 [place] [address] AST With P-5'-P [Catalytic activity/Vol] 65 U/L High 9-39 [facility] Comment on above: Performed By: #### 2 4325-3 ####AYDEE Bruce ([id number])[facility] ([facility])80281 [place] [address] Bilirubin [Mass/Vol] 2.2 mg/dL High 0.0-1.2 [facility] Comment on above: Performed By: #### 2 4325-3 ####AYDEE Bruce ([id number])[facility] ([facility])47449 [place] [address] Bilirubin.direct [Mass/Vol] 0.8 mg/dL High 0.0-0.3 [facility] Comment on above: Performed By: #### 2 4325-3 ####AYDEE Bruce (60243)[facility] ([facility])41217 [place] [address] Protein [Mass/Vol] 4.6 g/dL Low 6.4-8.2 [facility] Comment on above: Performed By: #### 2 4325-3 ####AYDEE Bruce (34475)[facility] ([facility])16002 [place] [address] Magnesiumon 10-06-2024 Magnesium [Mass/Vol] 2.11 mg/dL Normal 1.60-2.40 [facility] Comment on above: Performed By: #### 1 9123-9 ####AYDEE Bruce (50041)[facility] ([facility])[address]75 [place] [address] PT and aPTT panel Coag (PPP) on 10-06-2024 aPTT Coag (PPP) [Time] 57 s High 26-36 [facility] Comment on above: Order Comment: The A PTT is no longer used for monitoring Unfractionated Heparin Therapy. For monitoring Heparin Therapy, use the Heparin Assay. Performed By: #### 3 4529-8 ####AYDEE Bruce ([id number])[facility] ([facility])[address] [place] [address] INR Coag (PPP) [Relative time] 1.0 Normal 0.9-1.1 [facility] Comment on above: Order Comment: The A PTT is no longer used for monitoring Unfractionated Heparin Therapy. For monitoring Heparin Therapy, use the Heparin Assay. Performed By: #### 3 4529-8 ####AYDEE Bruce (69657)[facility] ([facility])[address]93 [place] [address] PT Coag (PPP) [Time] 10.8 s Normal 9.8-12.4 [facility] Comment on above: Order Comment: The A PTT is no longer used for monitoring Unfractionated Heparin Therapy. For monitoring Heparin Therapy, use the Heparin Assay. Performed By: #### 3 4529-8 ####AYDEE Bruce ([id number])[facility] ([facility])[address]508 [place] [address] Phosphateon 10-06-2024 Phosphate [Mass/Vol] 3.2 mg/dL Normal 2.5-4.9 [facility] Comment on above: Performed By: #### 2 777-1 ####AYDEE Bruce (48347)[facility] ([facility])[address]42 [place] [address] XR ABDOMEN 1 VIEWon 10-07-19 25 XR ABDOMEN 1 VIEW Normal [facility] Basic metabolic 2000 panelon 10-05-2024 Anion gap [Moles/Vol] 18 mmol/L Normal 10-20 [facility] Comment on above: Performed By: #### 2 4321-2 ####AYDEE BAZZI L ([id number])[facility] ([facility])[address]7967 [place] [address] Calcium [Mass/Vol] 8.1 mg/dL Low 8.6-10.6 [facility] Comment on above: Performed By: #### 2 4321-2 ####AYDEE CAMILOMOTZER L ([id number])[facility] ([facility])32498 [place] [address] Chloride [Moles/Vol] 98 mmol/L Normal 98-107 [facility] Comment on above: Performed By: #### 2 4321-2 ####AYDEE CAMILOMOGILBERTOER L (63857)[facility] ([facility])[address]606 [place] [address] CO2 [Moles/Vol] 23 mmol/L Normal 21-32 [facility] Comment on above: Performed By: #### 2 4321-2 ####AYDEE CAMILOMOTZLILIANA L (60750)[facility] ([facility])[address]1153 [place] [address] Creatinine [Mass/Vol] 2.58 mg/dL High 0.50-1.05 [facility] Comment on above: Performed By: #### 2 4321-2 ####AYDEE CAMILOMOTZER L (71834)[facility] ([facility])[address]24 [place] [address] Glomerular filtration rate 20 mL/min/1.73m*2 Low >60 [facility] Comment on above: Result Comment: Calc ulations of estimated GFR are performed using the 2020 CKD-EPI Study Refit equation without the race variable for the IDMS-Traceable creatinine methods.https://jasn.asnjournals.org/content/early/ N.8427016290 Performed By: #### 2 4321-2 ####AYDEE Bruce (59091)[facility] ([facility])[address] [place] [address] Glucose [Mass/Vol] 133 mg/dL High 74-99 [facility] Comment on above: Performed By: #### 2 4321-2 ####AYDEE Bruce (79908)[facility] ([facility])[address]129 [place] [address] Potassium [Moles/Vol] 5.8 mmol/L High 3.5-5.3 [facility] Comment on above: Performed By: #### 2 4321-2 ####AYDEE Bruce ([id number])[facility] ([facility])[address]323 [place] [address] Sodium [Moles/Vol] 133 mmol/L Low 136-145 [facility] Comment on above: Performed By: #### 2 4321-2 ####AYDEE Bruce ([id number])[facility] ([facility])[address]63 [place] [address] Urea nitrogen [Mass/Vol] 53 mg/dL High 6-23 [facility] Comment on above: Performed By: #### 2 4321-2 ####AYDEE Bruce ([id number])[facility] ([facility])[address]90 [place] [address] Blood type and Indirect anti body screen panel (Bld)on 10-05-2024 ABO group Nom (Bld) B Normal [facility] Comment on above: Performed By: #### 3 4532-2 ####AYDEE Bruce ([id number])[facility] ([facility])[address] [place] [address] Blood group antibody screen Ql Negative [facility] Comment on above: Performed By: #### 3 4532-2 ####AYDEE Bruce ([id number])[facility] ([facility])[address] [place] [address] D Ag Ql (Bld) Positive Normal [facility] Comment on above: Performed By: #### 3 4532-2 ####AYDEE Bruce ([id number])[facility] ([facility])[address] [place] [address]2008 CBC W Auto Differential pane l (Bld)on 10-05-2024 Basophils (Bld) [#/Vol] 0.08 x10*3/uL Normal 0.00-0.10 [facility] Comment on above: Performed By: #### 5 7021-8 ####AYDEE Bruce ([id number])[facility] ([facility])[address] [place] [address] Basophils/100 WBC (Bld) 0.5 % Normal 0.0-2.0 [facility] Comment on above: Performed By: #### 5 7021-8 ####AYDEE Bruce ([id number])[facility] ([facility])[id number] [place] [address]997 Eosinophils (Bld) [#/Vol] 0.97 x10*3/uL High 0.00-0.70 [facility] Comment on above: Performed By: #### 5 7021-8 ####AYDEE Bruce ([id number])[facility] ([facility])[id number] [place] [address] Eosinophils/100 WBC (Bld) 6.6 % Normal 0.0-6.0 [facility] Comment on above: Performed By: #### 5 7021-8 ####AYDEE Bruce ([id number])[facility] ([facility])[id number] [place] [address] 18238 Erythrocyte distribution width (RBC) [Ratio] 19.8 % High 11.5-14.5 [facility] Comment on above: Performed By: #### 5 7021-8 ####AYDEE Bruce ([id number])[facility] ([facility])[id number] [place] [address] Hematocrit (Bld) [Volume fraction] 24.6 % Low 36.0-46.0 [facility] Comment on above: Performed By: #### 5 7021-8 ####AYDEE Bruce ([id number])[facility] ([facility])[address] [place] [address] Hemoglobin (Bld) [Mass/Vol] 8.0 g/dL Low 12.0-16.0 [facility] Comment on above: Performed By: #### 5 7021-8 ####AYDEE BAZZI L ([id number])[facility] ([facility])[address] [place] [address] Immature granulocytes (Bld) [#/Vol] 0.18 x10*3/uL Normal 0.00-0.70 [facility] Comment on above: Performed By: #### 5 7021-8 ####AYDEE Bruce ([id number])[facility] ([facility])[address] [place] [address] Immature granulocytes/100 WBC (Bld) 1.2 % High 0.0-0.9 [facility] Comment on above: Result Comment: Doris ture Granulocyte Count (IG) includes promyelocytes, myelocytes and metamyelocytes but does not include bands. Percent differential counts (%) should be interpreted in the context of the absolute cell counts (cells/UL). Performed By: #### 5 7021-8 ####AYDEE Bruce ([id number])[facility] ([facility])[address]75 [place] [address] Lymphocytes (Bld) [#/Vol] 1.53 x10*3/uL Normal 1.20-4.80 [facility] Comment on above: Performed By: #### 5 7021-8 ####AYDEE BAZZI L ([id number])[facility] ([facility])[address] [place] [address] Lymphocytes/100 WBC (Bld) 10.4 % Normal 13.0-44.0 [facility] Comment on above: Performed By: #### 5 7021-8 ####AYDEE BAZZI L ([id number])[facility] ([facility])[address]74 [place] [address] MCH (RBC) [Entitic mass] 30.4 pg Normal 26.0-34.0 [facility] Comment on above: Performed By: #### 5 7021-8 ####AYDEE Bruce ([id number])[facility] ([facility])[address]126 [place] [address] MCHC (RBC) [Mass/Vol] 32.5 g/dL Normal 32.0-36.0 [facility] Comment on above: Performed By: #### 5 7021-8 ####AYDEE Bruce ([id number])[facility] ([facility])[address]57 [place] [address] MCV (RBC) [Entitic vol] 94 fL Normal 80-100 [facility] Comment on above: Performed By: #### 5 7021-8 ####AYDEE Bruce ([id number])[facility] ([facility])[address]34 [place] [address] Monocytes (Bld) [#/Vol] 0.78 x10*3/uL Normal 0.10-1.00 [facility] Comment on above: Performed By: #### 5 7021-8 ####AYDEE Bruce ([id number])[facility] ([facility])[address]80 [place] [address] Monocytes/100 WBC (Bld) 5.3 % Normal 2.0-10.0 [facility] Comment on above: Performed By: #### 5 7021-8 ####AYDEE Bruce ([id number])[facility] ([facility])[address]10 [place] [address] Neutrophils (Bld) [#/Vol] 11.21 x10*3/uL High 1.20-7.70 [facility] Comment on above: Result Comment: Perc ent differential counts (%) should be interpreted in the context of the absolute cell counts (cells/uL). Performed By: #### 5 7021-8 ####AYDEE Bruce ([id number])[facility] ([facility])[address]329 [place] [address] Neutrophils/100 WBC (Bld) 76.0 % Normal 40.0-80.0 [facility] Comment on above: Performed By: #### 5 7021-8 ####AYDEE Bruce ([id number])[facility] ([facility])[address]02 [place] [address] Nucleated RBC/100 WBC (Bld) [Ratio] 0.0 /100 WBCs Normal 0.0-0.0 [facility] Comment on above: Performed By: #### 5 7021-8 ####AYDEE Bruce ([id number])[facility] ([facility])[address]51 [place] [address] Platelets (Bld) [#/Vol] 169 x10*3/uL Normal 150-450 [facility] Comment on above: Performed By: #### 5 7021-8 ####AYDEE Bruce ([id number])[facility] ([facility])[address]645 [place] [address] RBC (Bld) [#/Vol] 2.63 x10*6/uL Low 4.00-5.20 [facility] Comment on above: Performed By: #### 5 7021-8 ####AYDEE Bruce ([id number])[facility] ([facility])60293 [place] [address] WBC (Bld) [#/Vol] 14.8 x10*3/uL High 4.4-11.3 [facility] Comment on above: Performed By: #### 5 7021-8 ####AYDEE Bruce ([id number])[facility] ([facility])[address]181 [place] [address] Basophils (Bld) [#/Vol] 0.06 x10*3/uL Normal 0.00-0.10 [facility] Comment on above: Performed By: #### 5 7021-8 ####AYDEE Bruce ([id number])[facility] ([facility])[address]57 [place] [address] Basophils/100 WBC (Bld) 0.3 % Normal 0.0-2.0 [facility] Comment on above: Performed By: #### 5 7021-8 ####AYDEE Bruce ([id number])[facility] ([facility])[address]43 [place] [address] Eosinophils (Bld) [#/Vol] 0.62 x10*3/uL Normal 0.00-0.70 [facility] Comment on above: Performed By: #### 5 7021-8 ####AYDEE Bruce ([id number])[facility] ([facility])[address] [place] [address] Eosinophils/100 WBC (Bld) 3.0 % Normal 0.0-6.0 [facility] Comment on above: Performed By: #### 5 7021-8 ####AYDEE Bruce ([id number])[facility] ([facility])[address] [place] [address] Erythrocyte distribution width (RBC) [Ratio] 18.6 % High 11.5-14.5 [facility] Comment on above: Performed By: #### 5 7021-8 ####AYDEE Bruce ([id number])[facility] ([facility])[address] [place] [address] Hematocrit (Bld) [Volume fraction] 21.9 % Low 36.0-46.0 [facility] Comment on above: Performed By: #### 5 7021-8 ####AYDEE Bruce ([id number])[facility] ([facility])[address] [place] [address] Hemoglobin (Bld) [Mass/Vol] 6.9 g/dL Low 12.0-16.0 [facility] Comment on above: Performed By: #### 5 7021-8 ####AYDEE Bruce ([id number])[facility] ([facility])[address] [place] [address] Immature granulocytes (Bld) [#/Vol] 0.51 x10*3/uL Normal 0.00-0.70 [facility] Comment on above: Performed By: #### 5 7021-8 ####AYDEE Bruce ([id number])[facility] ([facility])[address]170 [place] [address] Immature granulocytes/100 WBC (Bld) 2.5 % High 0.0-0.9 [facility] Comment on above: Result Comment: Doris ture Granulocyte Count (IG) includes promyelocytes, myelocytes and metamyelocytes but does not include bands. Percent differential counts (%) should be interpreted in the context of the absolute cell counts (cells/UL). Performed By: #### 5 7021-8 ####AYDEE Bruce ([id number])[facility] ([facility])[address]58 [place] [address] Lymphocytes (Bld) [#/Vol] 1.43 x10*3/uL Normal 1.20-4.80 [facility] Comment on above: Performed By: #### 5 7021-8 ####AYDEE Bruce ([id number])[facility] ([facility])[address]301 [place] [address] Lymphocytes/100 WBC (Bld) 6.9 % Normal 13.0-44.0 [facility] Comment on above: Performed By: #### 5 7021-8 ####AYDEE Bruce ([id number])[facility] ([facility])[address]876 [place] [address] MCH (RBC) [Entitic mass] 29.7 pg Normal 26.0-34.0 [facility] Comment on above: Performed By: #### 5 7021-8 ####AYDEE Bruce ([id number])[facility] ([facility])[address]85 [place] [address] MCHC (RBC) [Mass/Vol] 31.5 g/dL Low 32.0-36.0 [facility] Comment on above: Performed By: #### 5 7021-8 ####AYDEE Bruce ([id number])[facility] ([facility])[address]18 [place] [address] MCV (RBC) [Entitic vol] 94 fL Normal 80-100 [facility] Comment on above: Performed By: #### 5 7021-8 ####AYDEE Bruce ([id number])[facility] ([facility])[address]40 [place] [address] Monocytes (Bld) [#/Vol] 0.86 x10*3/uL Normal 0.10-1.00 [facility] Comment on above: Performed By: #### 5 7021-8 ####AYDEE Bruce ([id number])[facility] ([facility])[address]69 [place] [address] Monocytes/100 WBC (Bld) 4.1 % Normal 2.0-10.0 [facility] Comment on above: Performed By: #### 5 7021-8 ####AYDEE Bruce ([id number])[facility] ([facility])[address]200 [place] [address] Neutrophils (Bld) [#/Vol] 17.26 x10*3/uL High 1.20-7.70 [facility] Comment on above: Result Comment: Perc ent differential counts (%) should be interpreted in the context of the absolute cell counts (cells/uL). Performed By: #### 5 7021-8 ####AYDEE Bruce ([id number])[facility] ([facility])[address]53 [place] [address] Neutrophils/100 WBC (Bld) 83.2 % Normal 40.0-80.0 [facility] Comment on above: Performed By: #### 5 7021-8 ####AYDEE Bruce ([id number])[facility] ([facility])[address]260 [place] [address] Nucleated RBC/100 WBC (Bld) [Ratio] 0.0 /100 WBCs Normal 0.0-0.0 [facility] Comment on above: Performed By: #### 5 7021-8 ####AYDEE Bruce ([id number])[facility] ([facility])84648 [place] [address] Platelets (Bld) [#/Vol] 193 x10*3/uL Normal 150-450 [facility] Comment on above: Performed By: #### 5 7021-8 ####AYDEE Bruce ([id number])[facility] ([facility])[address]245 [place] [address] RBC (Bld) [#/Vol] 2.32 x10*6/uL Low 4.00-5.20 [facility] Comment on above: Performed By: #### 5 7021-8 ####AYDEE Bruce ([id number])[facility] ([facility])[address] [place] [address] WBC (Bld) [#/Vol] 20.7 x10*3/uL High 4.4-11.3 [facility] Comment on above: Performed By: #### 5 7021-8 ####AYDEE Bruce ([id number])[facility] ([facility])[address]26 [place] [address] Basophils (Bld) [#/Vol] 0.06 x10*3/uL Normal 0.00-0.10 [facility] Comment on above: Performed By: #### 5 7021-8 ####AYDEE Bruce ([id number])[facility] ([facility])[address]49 [place] [address] Basophils/100 WBC (Bld) 0.3 % Normal 0.0-2.0 [facility] Comment on above: Performed By: #### 5 7021-8 ####AYDEE BAZZI L ([id number])[facility] ([facility])[address]59 [place] [address] Eosinophils (Bld) [#/Vol] 0.93 x10*3/uL High 0.00-0.70 [facility] Comment on above: Performed By: #### 5 7021-8 ####AYDEE Bruce ([id number])[facility] ([facility])[address]90 [place] [address] Eosinophils/100 WBC (Bld) 4.8 % Normal 0.0-6.0 [facility] Comment on above: Performed By: #### 5 7021-8 ####AYDEE Bruce ([id number])[facility] ([facility])[address]95 [place] [address] Erythrocyte distribution width (RBC) [Ratio] 18.6 % High 11.5-14.5 [facility] Comment on above: Performed By: #### 5 7021-8 ####AYDEE Bruce ([id number])[facility] ([facility])[address] [place] [address] Hematocrit (Bld) [Volume fraction] 23.1 % Low 36.0-46.0 [facility] Comment on above: Performed By: #### 5 7021-8 ####AYDEE Bruce ([id number])[facility] ([facility])[address]35 [place] [address] Hemoglobin (Bld) [Mass/Vol] 7.1 g/dL Low 12.0-16.0 [facility] Comment on above: Performed By: #### 5 7021-8 ####AYDEE Bruce ([id number])[facility] ([facility])[address] [place] [address] Immature granulocytes (Bld) [#/Vol] 0.24 x10*3/uL Normal 0.00-0.70 [facility] Comment on above: Performed By: #### 5 7021-8 ####AYDEE CAMILOMOTZLILIANA L ([id number])[facility] ([facility])[address]318 [place] [address] Immature granulocytes/100 WBC (Bld) 1.2 % High 0.0-0.9 [facility] Comment on above: Result Comment: Doris ture Granulocyte Count (IG) includes promyelocytes, myelocytes and metamyelocytes but does not include bands. Percent differential counts (%) should be interpreted in the context of the absolute cell counts (cells/UL). Performed By: #### 5 7021-8 ####AYDEE Bruce ([id number])[facility] ([facility])[address]37 [place] [address] Lymphocytes (Bld) [#/Vol] 2.21 x10*3/uL Normal 1.20-4.80 [facility] Comment on above: Performed By: #### 5 7021-8 ####AYDEE Bruce ([id number])[facility] ([facility])[address] [place] [address] Lymphocytes/100 WBC (Bld) 11.5 % Normal 13.0-44.0 [facility] Comment on above: Performed By: #### 5 7021-8 ####AYDEE Bruce ([id number])[facility] ([facility])[address] [place] [address] MCH (RBC) [Entitic mass] 29.5 pg Normal 26.0-34.0 [facility] Comment on above: Performed By: #### 5 7021-8 ####AYDEE Bruce ([id number])[facility] ([facility])[address] [place] [address] MCHC (RBC) [Mass/Vol] 30.7 g/dL Low 32.0-36.0 [facility] Comment on above: Performed By: #### 5 7021-8 ####AYDEE Bruce ([id number])[facility] ([facility])[address] [place] [address] MCV (RBC) [Entitic vol] 96 fL Normal 80-100 [facility] Comment on above: Performed By: #### 5 7021-8 ####AYDEE Bruce ([id number])[facility] ([facility])[address] [place] [address] Monocytes (Bld) [#/Vol] 1.13 x10*3/uL High 0.10-1.00 [facility] Comment on above: Performed By: #### 5 7021-8 ####AYDEE Bruce ([id number])[facility] ([facility])[address]308 [place] [address] Monocytes/100 WBC (Bld) 5.9 % Normal 2.0-10.0 [facility] Comment on above: Performed By: #### 5 7021-8 ####AYDEE BAZZI L (40234)[facility] ([facility])89878 [place] [address] Neutrophils (Bld) [#/Vol] 14.71 x10*3/uL High 1.20-7.70 [facility] Comment on above: Result Comment: Perc ent differential counts (%) should be interpreted in the context of the absolute cell counts (cells/uL). Performed By: #### 5 7021-8 ####AYDEE Bruce ([id number])[facility] ([facility])[address]27 [place] [address] Neutrophils/100 WBC (Bld) 76.3 % Normal 40.0-80.0 [facility] Comment on above: Performed By: #### 5 7021-8 ####AYDEE Bruce ([id number])[facility] ([facility])[address]26 [place] [address] Nucleated RBC/100 WBC (Bld) [Ratio] 0.0 /100 WBCs Normal 0.0-0.0 [facility] Comment on above: Performed By: #### 5 7021-8 ####AYDEE BAZZI L ([id number])[facility] ([facility])07148 [place] [address] Platelets (Bld) [#/Vol] 209 x10*3/uL Normal 150-450 [facility] Comment on above: Performed By: #### 5 7021-8 ####AYDEE BAZZI L ([id number])[facility] ([facility])[address]48 [place] [address] RBC (Bld) [#/Vol] 2.41 x10*6/uL Low 4.00-5.20 [facility] Comment on above: Performed By: #### 5 7021-8 ####AYDEE Bruce ([id number])[facility] ([facility])[address]23 [place] [address] WBC (Bld) [#/Vol] 19.3 x10*3/uL High 4.4-11.3 [facility] Comment on above: Performed By: #### 5 7021-8 ####AYDEE Bruce ([id number])[facility] ([facility])[address]91 [place] [address] Glucose Test strip manual (B ld) [Mass/Vol]on 10-05-2024 Glucose [Mass/Vol] 115 mg/dL High [address] [place] [address] Comment on above: Performed By: #### 2 341-6 ####AYDEE Bruce ([id number])[facility] ([facility])[address]27 [place] [address] Glucose [Mass/Vol] 125 mg/dL High [address] [place] [address] Comment on above: Performed By: #### 2 341-6 ####AYDEE Bruce ([id number])[facility] ([facility])[address]67 [place] [address] Glucose [Mass/Vol] 102 mg/dL High [address] [place] [address] Comment on above: Performed By: #### 2 341-6 ####AYDEE Bruce ([id number])[facility] ([facility])[address]30 [place] [address] Glucose [Mass/Vol] 116 mg/dL High [address] [place] [address] Comment on above: Performed By: #### 2 341-6 ####AYDEE Bruce (92713)[facility] ([facility])[address]352 [place] [address] Glucose [Mass/Vol] 129 mg/dL High [address] [place] [address] Comment on above: Performed By: #### 2 341-6 ####AYDEE Bruce ([id number])[facility] ([facility])[address]42 [place] [address] Heparin.unfractionatedon Heparin unfractionated Chromogenic method Qn (PPP) 0.6 IU/mL Normal See Comment Below for Therapeutic Ranges [facility] Comment on above: Order Comment: Obtai n 4 hours after any Heparin dosage change. Nursing to release order.The therapeutic reference range for UFH may be either 0.3-0.6 IU/mL or 0.3-0.7 IU/mL based on the clinical setting for anticoagulant therapy and the associated nomogram used. For Heparin dosing guidelines based on clinical scenario and Heparin Assay results, please refer to local Pharmacy and the [facility] Guidelines for Anticoagulation Therapy available on the [facility] intranet at: [email or web address] Performed By: #### 3 274-8 ####AYDEE Bruce ([id number])[facility] ([facility])[address]48 [place] [address] Hepatic function 2000 panelo n 10-05-2024 Albumin BCP dye [Mass/Vol] 2.8 g/dL Low 3.4-5.0 [facility] Comment on above: Performed By: #### 2 4325-3 ####AYDEE Bruce ([id number])[facility] ([facility])33557 [place] [address] ALP [Catalytic activity/Vol] 258 U/L High 33-136 [facility] Comment on above: Performed By: #### 2 4325-3 ####AYDEE Bruce ([id number])[facility] ([facility])40792 [place] [address] ALT With P-5'-P [Catalytic activity/Vol] 41 U/L Normal 7-45 [facility] Comment on above: Result Comment: Susan ents treated with Sulfasalazine may generate falsely decreased results for ALT. Performed By: #### 2 4325-3 ####AYDEE Bruce ([id number])[facility] ([facility])[address]60 [place] [address] AST With P-5'-P [Catalytic activity/Vol] 69 U/L High 9-39 [facility] Comment on above: Performed By: #### 2 4325-3 ####AYDEE Bruce ([id number])[facility] ([facility])[address]671 [place] [address] Bilirubin [Mass/Vol] 1.9 mg/dL High 0.0-1.2 [facility] Comment on above: Performed By: #### 2 4325-3 ####AYDEE Bruce ([id number])[facility] ([facility])83159 [place] [address] Bilirubin.direct [Mass/Vol] 0.6 mg/dL High 0.0-0.3 [facility] Comment on above: Performed By: #### 2 4325-3 ####AYDEE Bruce ([id number])[facility] ([facility])[address]293 [place] [address] Protein [Mass/Vol] 4.9 g/dL Low 6.4-8.2 [facility] Comment on above: Performed By: #### 2 4325-3 ####AYDEE Bruce ([id number])[facility] ([facility])[address]643 [place] [address] Magnesiumon 10-05-2024 Magnesium [Mass/Vol] 2.41 mg/dL High 1.60-2.40 [facility] Comment on above: Performed By: #### 1 9123-9 ####AYDEE Bruce ([id number])[facility] ([facility])[address]676 [place] [address] PT and aPTT panel Coag (PPP) on 10-05-2024 aPTT Coag (PPP) [Time] 75 s High 26-36 [facility] Comment on above: Order Comment: The A PTT is no longer used for monitoring Unfractionated Heparin Therapy. For monitoring Heparin Therapy, use the Heparin Assay. Performed By: #### 3 4529-8 ####AYDEE Bruce ([id number])[facility] ([facility])[address]14 [place] [address] INR Coag (PPP) [Relative time] 1.0 Normal 0.9-1.1 [facility] Comment on above: Order Comment: The A PTT is no longer used for monitoring Unfractionated Heparin Therapy. For monitoring Heparin Therapy, use the Heparin Assay. Performed By: #### 3 4529-8 ####AYDEE Bruce ([id number])[facility] ([facility])[id number] [place] [address] PT Coag (PPP) [Time] 10.8 s Normal 9.8-12.4 [facility] Comment on above: Order Comment: The A PTT is no longer used for monitoring Unfractionated Heparin Therapy. For monitoring Heparin Therapy, use the Heparin Assay. Performed By: #### 3 4529-8 ####AYDEE Bruce ([id number])[facility] ([facility])[address] [place] [address] Phosphateon 10-05-2024 Phosphate [Mass/Vol] 3.5 mg/dL Normal 2.5-4.9 [facility] Comment on above: Performed By: #### 2 777-1 ####AYDEE Bruce ([id number])[facility] ([facility])[address] [place] [address] Coagulation surface inducedo n 10-04-2024 aPTT Coag (PPP) [Time] 50 s High 26-36 [facility] Comment on above: Order Comment: When two (2) consecutive Activated Partial Thromboplastin Times results obtained 2 hours apart are therapeutic, obtain STAT Activated Partial Thromboplastin Time every a.m. Nursing to release order.The APTT is no longer used for monitoring Unfractionated Heparin Therapy. For monitoring Heparin Therapy, use the Heparin Assay. Performed By: #### 1 4979-9 ####AYDEE Bruce ([id number])[facility] ([facility])[id number] [place] [address] Glucose Test strip manual (B ld) [Mass/Vol]on 10-04-2024 Glucose [Mass/Vol] 114 mg/dL High 74-99 [facility] Comment on above: Performed By: #### 2 341-6 ####AYDEE Bruce ([id number])[facility] ([facility])[address]222 [place] [address] Glucose [Mass/Vol] 114 mg/dL High 74-99 [facility] Comment on above: Performed By: #### 2 341-6 ####AYDEE Bruce ([id number])[facility] ([facility])[address]478 [place] [address] Heparin.unfractionatedon Heparin unfractionated Chromogenic method Qn (PPP) 0.5 IU/mL Normal See Comment Below for Therapeutic Ranges [facility] Comment on above: Order Comment: Obtai n 4 hours after any Heparin dosage change. Nursing to release order.The therapeutic reference range for UFH may be either 0.3-0.6 IU/mL or 0.3-0.7 IU/mL based on the clinical setting for anticoagulant therapy and the associated nomogram used. For Heparin dosing guidelines based on clinical scenario and Heparin Assay results, please refer to local Pharmacy and the [facility] Guidelines for Anticoagulation Therapy available on the [facility] intranet at: [email or web address] Performed By: #### 3 274-8 ####AYDEE Bruce ([id number])[facility] ([facility])[address]74 [place] [address] Heparin unfractionated Chromogenic method Qn (PPP) 0.2 IU/mL Normal See Comment Below for Therapeutic Ranges [facility] Comment on above: Order Comment: Obtai n 4 hours after initiation of heparin infusion. Nursing to release order.The therapeutic reference range for UFH may be either 0.3-0.6 IU/mL or 0.3-0.7 IU/mL based on the clinical setting for anticoagulant therapy and the associated nomogram used. For Heparin dosing guidelines based on clinical scenario and Heparin Assay results, please refer to local Pharmacy and the [facility] Guidelines for Anticoagulation Therapy available on the [facility] intranet at: [email or web address] Performed By: #### 3 274-8 ####AYDEE Bruce ([id number])[facility] ([facility])[address] [place] [address] ECG 12-LEADon 09-27-2024 ECG 12-LEAD Ventricular Rate 46 Atrial Rate 46 P-R Interval 160 QRS Duration 108 Q-T Interval 464 QTC Calculation(Bazett) 406 P [place] -4 R [place] 48 T [place] 87 QRS Count 8 Q Onset 215 P Onset 135 P Offset 186 T Offset 447 QTC [place] 424 Diagnosis Marked sinus bradycardia 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 rate has decreased BY 29 BPM Serial changes of evolving Anteroseptal infarct Present Confirmed by Albert Costa ([id number]) on 09/28/2024 3:24:11 PM Normal [place] [facility] 12-LEAD Ventricular Rate 75 Atrial Rate 75 P-R Interval 158 QRS Duration 96 Q-T Interval 376 QTC Calculation(Bazett) 419 P [place] 70 R [place] 65 T [place] 73 QRS Count 13 Q Onset 215 P Onset 136 P Offset 185 T Offset 403 QTC [place] 404 Diagnosis Normal sinus rhythm Septal infarct (cited on or before 11-SEP-2024) Abnormal ECG When compared with ECG of 25-SEP-2024 10:18, (unconfirmed) Sinus rhythm has replaced Atrial flutter Questionable change in initial forces of Anterior leads Confirmed by Stanislav Hernandez ([id number]) on 09/28/2024 2:23:09 PM Normal [facility] ECG 12-LEAD Ventricular Rate 95 Atrial Rate 95 P-R Interval 150 QRS Duration 90 Q-T Interval 340 QTC Calculation(Bazett) 427 P [place] 76 R [place] 57 T [place] 73 QRS Count 15 Q Onset 215 P Onset 140 P Offset 183 T Offset 385 QTC [place] 396 Diagnosis Normal sinus rhythm Possible Left atrial enlargement Anterior infarct , age undetermined Abnormal ECG Confirmed by Thal Albert ([id number]) on 09/30/2024 1:18:23 PM Normal [facility] ECG 12-LEAD Ventricular Rate 101 Atrial Rate 101 P-R Interval 146 QRS Duration 88 Q-T Interval 326 QTC Calculation(Bazett) 422 P [place] 66 R [place] 63 T [place] 76 QRS Count 17 Q Onset 215 P Onset 142 P Offset 183 T Offset 378 QTC [place] 387 Diagnosis Sinus tachycardia with Premature atrial complexes Anterior infarct , age undetermined Abnormal ECG Confirmed by Thal Albert ([id number]) on 09/30/2024 1:18:21 PM Normal [facility] ECG 12-LEAD Ventricular Rate 104 Atrial Rate 104 P-R Interval 152 QRS Duration 84 Q-T Interval 310 QTC Calculation(Bazett) 407 P [place] 81 R [place] 63 T [place] 74 QRS Count 17 Q Onset 214 P Onset 138 P Offset 186 T Offset 369 QTC [place] 372 Diagnosis Sinus tachycardia Biatrial enlargement Anterior infarct (cited on or before 26-SEP-2024) ACUTE SD / STEMI Abnormal ECG When compared with ECG of 26-SEP-2024 18:04, Serial changes of evolving Anterior infarct Present Confirmed by Thal Albert ([id number]) on 09/30/2024 1:18:14 PM Normal [facility] ECG 12-LEADon 09-26-2024 ECG 12-LEAD Ventricular Rate 87 Atrial Rate 87 P-R Interval 146 QRS Duration 86 Q-T Interval 344 QTC Calculation(Bazett) 413 P [place] 74 R [place] 56 T [place] 66 QRS Count 14 Q Onset 216 P Onset 143 P Offset 187 T Offset 388 QTC [place] 389 Diagnosis Normal sinus rhythm Normal ECG When compared with ECG of 26-SEP-2024 19:22, QRS axis Shifted left ST no longer depressed in Lateral leads Confirmed by Thal Albert ([id number]) on 09/30/2024 1:18:04 PM Normal [facility] ECG 12-LEAD Ventricular Rate 101 Atrial Rate 101 P-R Interval 150 QRS Duration 86 Q-T Interval 334 QTC Calculation(Bazett) 433 P [place] 83 R [place] 66 T [place] 74 QRS Count 16 Q Onset 213 P Onset 138 P Offset 187 T Offset 380 QTC [place] 397 Diagnosis Sinus tachycardia Possible Left atrial enlargement Possible Anterior infarct , age undetermined Abnormal ECG No previous ECGs available Confirmed by Thal Albert ([id number]) on 09/30/2024 1:17:53 PM Normal [facility] ECG 12-LEADon 09-25-2024 ECG 12-LEAD Ventricular Rate 88 Atrial Rate 294 QRS Duration 104 Q-T Interval 340 QTC Calculation(Bazett) 411 P [place] 83 R [place] 64 T [place] 74 QRS Count 15 Q Onset 212 T Offset 382 QTC [place] 386 Diagnosis Atrial flutter with variable AV block Anterior infarct (cited on or before 11-SEP-2024) Abnormal ECG When compared with ECG of 23-SEP-2024 08:35, Atrial flutter has replaced Ectopic atrial rhythm ST elevation now present in Anterior leads Confirmed by Khang Luevano ([id number]) on 10/02/2024 5:33:47 AM Normal [facility] ECG 12-LEADon 09-23-2024 ECG 12-LEAD Ventricular Rate 73 Atrial Rate 73 P-R Interval 160 QRS Duration 84 Q-T Interval 404 QTC Calculation(Bazett) 445 P [place] -36 R [place] 71 T [place] 57 QRS Count 12 Q Onset 215 P Onset 135 P Offset 187 T Offset 417 QTC [place] 431 Diagnosis Unusual P axis, possible ectopic atrial rhythm Low voltage QRS Cannot rule out 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) Abnormal ECG When compared with ECG of 23-SEP-2024 04:29, Serial changes of Anteroseptal infarct Present Confirmed by Khang Luevano ([id number]) on 09/23/2024 5:35:18 PM Normal [facility] ECG 12-LEAD Ventricular Rate 64 Atrial Rate 64 P-R Interval 170 QRS Duration 102 Q-T Interval 424 QTC Calculation(Bazett) 437 P [place] -35 R [place] 72 T [place] 61 QRS Count 10 Q Onset 214 P Onset 129 P Offset 181 T Offset 426 QTC [place] 433 Diagnosis Unusual P axis, possible ectopic atrial rhythm Low voltage QRS Cannot rule out 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) Abnormal ECG When compared with ECG of 23-SEP-2024 02:06, No significant change was found Confirmed by Khang Luevano ([id number]) on 09/23/2024 9:40:25 AM Normal [facility] ECG 12-LEAD Ventricular Rate 57 Atrial Rate 57 P-R Interval 172 QRS Duration 102 Q-T Interval 438 QTC Calculation(Bazett) 426 P [place] -30 R [place] 71 T [place] 63 QRS Count 9 Q Onset 215 P Onset 129 P Offset 180 T Offset 434 QTC [place] 430 Diagnosis Unusual P axis, possible ectopic atrial bradycardia Low voltage QRS Cannot rule out 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) Abnormal ECG When compared with ECG of 23-SEP-2024 00:03, Ectopic atrial rhythm has replaced Sinus rhythm Confirmed by Khang Luevano ([id number]) on 09/23/2024 9:41:34 AM Normal [facility] ECG 12-LEAD Ventricular Rate 62 Atrial Rate 62 P-R Interval 170 QRS Duration 104 Q-T Interval 420 QTC Calculation(Bazett) 426 R [place] 68 T [place] 59 QRS Count 10 Q Onset 214 P Onset 129 P Offset 181 T Offset 424 QTC [place] 424 Diagnosis Normal sinus rhythm Low voltage QRS Cannot rule out 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) Abnormal ECG When compared with ECG of 13-SEP-2024 03:41, Sinus rhythm has replaced Atrial fibrillation Vent. rate has decreased BY 73 BPM Serial changes of evolving Anteroseptal infarct Present Confirmed by Khang Luevano ([id number]) on 09/23/2024 9:41:41 AM Normal [facility] ACT Coag (Bld)on 09-16-2024 Interpretation and review of laboratory results Abnormal [facility] Interpretation and review of laboratory results Abnormal [facility] Interpretation and review of laboratory results Abnormal [facility] Interpretation and review of laboratory results Abnormal [facility] ACTIVATED CLOTTING TIME HIGH on 09-16-2024 ACT Coag (Bld) 214 s [facility] Comment on above: Target ACT range danelle l vary based on the patient population, clinical status, and surgical intervention occurring. ACT Coag (Bld) 362 s [facility] Comment on above: Target ACT range danelle l vary based on the patient population, clinical status, and surgical intervention occurring. ACT Coag (Bld) 206 s [facility] Comment on above: Target ACT range danelle l vary based on the patient population, clinical status, and surgical intervention occurring. ACT Coag (Bld) 307 s High [facility] Comment on above: Target ACT range danelle l vary based on the patient population, clinical status, and surgical intervention occurring. Gas and Carbon monoxide and Electrolytes panel (BldA)on 09-16-2024 Anion gap 4 (BldA) [Moles/Vol] 15 [facility] Base excess Calc (Bld) [Moles/Vol] -3.2000 mmol/L Low -2.0 - 3.0 mmol/L [facility] Calcium.ionized (BldA) [Moles/Vol] 1.07 mmol/L Low 1.10 - 1.33 mmol/L [facility] Chloride (BldA) [Moles/Vol] 98 mmol/L 98 - 107 mmol/L [facility] CO2 (Bld) [Partial pressure] 32 mm[Hg] Low [facility] Glucose [Mass/Vol] 185 mg/dL High 74 - 99 mg/dL [facility] HCO3 (Bld) [Moles/Vol] 20.8 mmol/L Low 22.0 - 26.0 mmol/L [facility] Hematocrit Est (Bld) [Volume fraction] 26 % Low 36.0 - 46.0 % [facility] Hemoglobin (Bld) [Mass/Vol] 8.7 g/dL Low 12.0 - 16.0 g/dL [facility] Interpretation and review of laboratory results Abnormal [facility] Lactate (BldA) [Moles/Vol] 1 mmol/L 0.4 - 2.0 mmol/L [facility] Oxygen (Bld) [Partial pressure] 82 mm[Hg] Low [facility] Oxyhemoglobin (BldA) [Mass fraction] 95.9 % 94.0 - 98.0 % [facility] pH (Bld) 7.42 [pH] 7.38 - 7.42 pH [facility] Potassium (BldA) [Moles/Vol] 5.1 mmol/L 3.5 - 5.3 mmol/L [facility] Sodium (BldA) [Moles/Vol] 129 mmol/L Low 136 - 145 mmol/L [facility] ECG 12-LEADon 09-13-2024 ECG 12-LEAD Ventricular Rate 135 Atrial Rate 250 QRS Duration 90 Q-T Interval 304 QTC Calculation(Bazett) 456 R [place] 77 T [place] 76 QRS Count 22 Q Onset 216 T Offset 368 QTC [place] 398 Diagnosis Atrial fibrillation with rapid ventricular response Low voltage QRS 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) ACUTE SD / STEMI Abnormal ECG When compared with ECG of 13-SEP-2024 03:41, No significant change was found Confirmed by Albert Costa ([id number]) on 09/15/2024 11:23:45 AM Normal [facility] ABS (Gel)on 09-11-2024 ABSC Interp (Gel) Negative [facility] Comment on above: Performed By: #### A SHAWANDA ABOGEL #### [place] [address] Performed By: #### A MICK SANONGEL #### [place] [address] ECG 12-LEADon 09-11-2024 ECG 12-LEAD Ventricular Rate 72 Atrial Rate 72 P-R Interval 172 QRS Duration 122 Q-T Interval 460 QTC Calculation(Bazett) 503 P [place] -27 R [place] 52 T [place] 100 QRS Count 12 Q Onset 218 P Onset 132 P Offset 192 T Offset 448 QTC [place] 489 Diagnosis Normal sinus rhythm Anteroseptal infarct , age undetermined Abnormal ECG No previous ECGs available Confirmed by Albert Costa ([id number]) on 09/16/2024 1:24:34 PM Normal [facility] RBC (Product)on 09-11-2024 RBC Product Ready RBC Ready for Pickup [facility] Comment on above: Performed By: #### R BCP #### [place] [address] Performed By: #### H BSAG, HBSAB #### [place] [address] RBC Product Ready RBC Ready for Pickup [facility] Comment on above: Performed By: #### R BCP #### [place] [address] .Auto Diffon 09-10-2024 Basophil, Absolute 0.0 10 3/mcL Normal 0.0-0.3 [facility] Comment on above: Performed By: #### A BSGEL, ABOGEL #### [place] [address] Performed By: #### H BSAG, HBSAB #### [place] [address] Basophils/100 WBC (Bld) 0.3 % Normal 0.0-2.5 [facility] Comment on above: Performed By: #### A BSGEL, ABOGEL #### [place] [address] Performed By: #### H BSAG, HBSAB #### [place] [address] Eosinophil, Absolute 0.0 10 3/mcL Normal 0.0-0.7 [facility] Comment on above: Performed By: #### A BSGEL, ABOGEL #### [place] [address] Performed By: #### H BSAG, HBSAB #### [place] [address] Eosinophils/100 WBC (Bld) 0.2 % Normal 0.0-6.0 [facility] Comment on above: Performed By: #### A BSGEL, ABOGEL #### [place] [address] Performed By: #### H BSAG, HBSAB #### [place] [address] Lymphocyte, Absolute 1.6 10 3/mcL Normal 0.9-4.3 [facility] Comment on above: Performed By: #### A BSGEL, ABOGEL #### [place] [address] Performed By: #### H BSAG, HBSAB #### [place] [address] Lymphocytes/100 WBC (Bld) 14.0 % Low 20.0-40.0 [facility] Comment on above: Performed By: #### A BSGEL, ABOGEL #### [place] [address] Performed By: #### H BSAG, HBSAB #### [place] [address] Monocyte, Absolute 0.2 10 3/mcL Normal 0.1-1.4 [facility] Comment on above: Performed By: #### A BSGEL, ABOGEL #### [place] [address] Performed By: #### H BSAG, HBSAB #### [place] [address] Monocytes/100 WBC (Bld) 1.7 % Low 2.0-13.0 [facility] Comment on above: Performed By: #### A BSGEL, ABOGEL #### [place] [address] Performed By: #### H BSAG, HBSAB #### [place] [address] Neutrophils/100 WBC (Bld) 83.8 % High 50.0-75.0 [facility] Comment on above: Performed By: #### A BSGEL, ABOGEL #### [place] [address] Performed By: #### H BSAG, HBSAB #### [place] [address] Basophil, Absolute 0.0 10 3/mcL Normal 0.0-0.3 [facility] Comment on above: Performed By: #### A BSGEL, ABOGEL #### [place] [address] Performed By: #### A BOGSHALINI ABSGEL #### [place] [address] Basophils/100 WBC (Bld) 0.3 % Normal 0.0-2.5 [facility] Comment on above: Performed By: #### A BSGEL, ABOGEL #### [place] [address] Performed By: #### A CHUCK SANON #### [place] [address] Eosinophil, Absolute 0.1 10 3/mcL Normal 0.0-0.7 [facility] Comment on above: Performed By: #### A SHAWANDA ABOGEL #### [place] [address] Performed By: #### A TALITA ABSGEL #### [place] [address] Eosinophils/100 WBC (Bld) 0.4 % Normal 0.0-6.0 [facility] Comment on above: Performed By: #### A SHAWANDA ABOGEL #### [place] [address] Performed By: #### A CHUCK SANON #### [place] [address] Lymphocyte, Absolute 2.2 10 3/mcL Normal 0.9-4.3 [facility] Comment on above: Performed By: #### A SHAWANDA ABOGEL #### [place] [address] Performed By: #### A CHUCK SANON #### [place] [address] Lymphocytes/100 WBC (Bld) 15.1 % Low 20.0-40.0 [facility] Comment on above: Performed By: #### A SHAWANDA ABOGEL #### [place] [address] Performed By: #### A TALITA ABSGEL #### [place] [address] Monocyte, Absolute 0.4 10 3/mcL Normal 0.1-1.4 [facility] Comment on above: Performed By: #### A SHAWANDA ABOGEL #### [place] [address] Performed By: #### A TALITA ABSGEL #### [place] [address] Monocytes/100 WBC (Bld) 2.9 % Normal 2.0-13.0 [facility] Comment on above: Performed By: #### A LANDYR MAYBERRY #### [place] [address] Performed By: #### A CHUCK SANON #### [place] [address] Neutrophils/100 WBC (Bld) 81.3 % High 50.0-75.0 [facility] Comment on above: Performed By: #### A CHAPARRITA MAYBERRYGEL #### [place] [address] Performed By: #### A CHUCK SANON #### [place] [address] .GFRon 09-10-2024 Estimated Glomerular Filtration Rate 46 ml/min/1.73sqm [facility] Comment on above: Result Comment: Stages of Chronic Kidney Disease (CKD) Stage Description eGFR(ml/min/1.73 sq.m.) CKD 1 Normal kidney function or >=90 normal kindney function with possible kidney damage (ex. Proteinuria) CKD 2 Kidney damage with mild loss 60-89 of kidney function CKD 3a Mild to moderate loss of kidney 45-59 function CKD 3b Moderate to severe loss of 30-44 of kindey function CKD 4 Severe loss of kidney function 15-29 CKD 5 Kidney failure <15 Note: (go live 2024) the eGFR calculation was updated to the 2020 CKD-EPI creatinine equation without a race factor to calculate the eGFR results. Performed By: #### G FR, MG, CMP #### [place] [address] Performed By: #### B FPR, GLUBF, BFCT, PROBF #### [place] [address] Estimated Glomerular Filtration Rate 49 ml/min/1.73sqm [facility] Comment on above: Result Comment: Stages of Chronic Kidney Disease (CKD) Stage Description eGFR(ml/min/1.73 sq.m.) CKD 1 Normal kidney function or >=90 normal kindney function with possible kidney damage (ex. Proteinuria) CKD 2 Kidney damage with mild loss 60-89 of kidney function CKD 3a Mild to moderate loss of kidney 45-59 function CKD 3b Moderate to severe loss of 30-44 of kindey function CKD 4 Severe loss of kidney function 15-29 CKD 5 Kidney failure <15 Note: (go live 2024) the eGFR calculation was updated to the 2020 CKD-EPI creatinine equation without a race factor to calculate the eGFR results. Performed By: #### A BSGEL, ABOGEL #### [place] [address] Performed By: #### A TALITA ABSGEL #### [place] [address] .NEUABSon 09-10-2024 Neutrophil, Absolute 9.9 10 3/mcL High 2.3-8.1 [facility] Comment on above: Performed By: #### A BSGEL, ABOGEL #### [place] [address] Performed By: #### H BSAG, HBSAB #### [place] [address] Neutrophil, Absolute 11.5 10 3/mcL High 2.3-8.1 [facility] Comment on above: Performed By: #### A BSGEL, ABOGEL #### [place] [address] Performed By: #### A TALITA, ABSGEL #### [place] [address] ABO/Rh (Gel)on 09-10-2024 ABO/Rh Interp Positive Invalid Interpretation Code [facility] Comment on above: Performed By: #### A BSGEL, ABOGEL #### [place] [address] Performed By: #### A TALITA ABSGEL #### [place] [address] APTTon 09-10-2024 aPTT Coag (Bld) [Time] s Critically abnormal 25.0-35.0 [facility] Comment on above: Result Comment: Spec imen hemolyzed. Results may be affected. For Heparin anticoagulation therapy, the recommended therapeutic range is: 54-77 seconds (APTT Correlation with Anti-Xa therapeutic range of 0.3-0.7 units/ml). PLEASE REFERENCE THE PHARMACY PROTOCOL FOR DOSING. Performed By: #### A LANDRY MAYBERRY #### [place] [address] Performed By: #### A CHUCK SANON #### [place] [address] BGon 09-10-2024 Base excess Calc (Bld) [Moles/Vol] -5.7000 mmol/L Normal [facility] Comment on above: Performed By: #### A SHAWANDA ABOGEL #### [place] [address] Performed By: #### H BSAMaxx, HBSAB #### [place] [address] CO2 [Moles/Vol] 17.1 mmol/L Low 22.0-30.0 [facility] Comment on above: Performed By: #### A SHAWANDA ABOGEL #### [place] [address] Performed By: #### H BSAMaxx, HBSAB #### [place] [address] HCO3 (Bld) [Moles/Vol] 16.4 mmol/L Low 21.0-29.0 [facility] Comment on above: Performed By: #### A SHAWANDA ABOGEL #### [place] [address] Performed By: #### H BSAMaxx, HBSAB #### [place] [address] Oxygen (Bld) [Partial pressure] 338.7 mm[Hg] High 74.0-108.0 [facility] Comment on above: Performed By: #### A SHAWANDA ABOGEL #### [place] [address] Performed By: #### H BSAG, HBSAB #### [place] [address] Oxygen saturation in Blood 99.2 % High 92.0-96.0 [facility] Comment on above: Performed By: #### A SHAWANDA ABOGEL #### [place] [address] Performed By: #### H BSAMaxx, HBSAB #### [place] [address] pCO2 22.9 mmHg Low 32.0-46.0 [facility] Comment on above: Performed By: #### A SHAWANDA ABOGEL #### [place] [address] Performed By: #### H BSAMaxx, HBSAB #### [place] [address] pH (Bld) 7.472 [pH] High 7.380-7.460 [facility] Comment on above: Performed By: #### A SHAWANDA ABOGEL #### [place] [address] Performed By: #### H BSAMaxx, HBSAB #### [place] [address] Base excess Calc (Bld) [Moles/Vol] -5.6000 mmol/L Normal [facility] Comment on above: Performed By: #### B G #### [place] [address] Performed By: #### T VINITA #### [place] [address] CO2 [Moles/Vol] 28.2 mmol/L Normal 22.0-30.0 [facility] Comment on above: Performed By: #### B G #### [place] [address] Performed By: #### T VINITA #### [place] [address] HCO3 (Bld) [Moles/Vol] 25.8 mmol/L Normal 21.0-29.0 [facility] Comment on above: Performed By: #### B G #### [place] [address] Performed By: #### T VINITA #### [place] [address] Oxygen (Bld) [Partial pressure] 38.4 mm[Hg] Critically abnormal 74.0-108.0 [facility] Comment on above: Performed By: #### B G #### [place] [address] Performed By: #### T RANDALL #### [place] [address] Oxygen saturation in Blood 63.4 % Low 92.0-96.0 [facility] Comment on above: Performed By: #### B G #### [place] [address] Performed By: #### T VINITA #### [place] [address] pCO2 77.5 mmHg Critically abnormal 32.0-46.0 [facility] Comment on above: Performed By: #### B G #### [place] [address] Performed By: #### T RANDALL #### [place] [address] pH (Bld) 7.141 [pH] Critically abnormal 7.380-7.460 [facility] Comment on above: Performed By: #### B G #### [place] [address] Performed By: #### T RANDALL #### [place] [address] Base excess Calc (Bld) [Moles/Vol] -10.84471 mmol/L Normal [facility] Comment on above: Performed By: #### A BSGEL, ABOGEL #### [place] [address] Performed By: #### H BSAG, HBSAB #### [place] [address] CO2 [Moles/Vol] 24.7 mmol/L Normal 22.0-30.0 [facility] Comment on above: Performed By: #### A BSGEL, ABOGEL #### [place] [address] Performed By: #### H BSAG, HBSAB #### [place] [address] HCO3 (Bld) [Moles/Vol] 22.2 mmol/L Normal 21.0-29.0 [facility] Comment on above: Performed By: #### A BSMARJAN, ABOGEL #### [place] [address] Performed By: #### H BSAG, HBSAB #### [place] [address] Oxygen (Bld) [Partial pressure] 47.6 mm[Hg] Critically abnormal 74.0-108.0 [facility] Comment on above: Performed By: #### A BSMARJAN ABOGEL #### [place] [address] Performed By: #### H BSAG, HBSAB #### [place] [address] Oxygen saturation in Blood 70.7 % Low 92.0-96.0 [facility] Comment on above: Performed By: #### A BSMARJAN ABOGEL #### [place] [address] Performed By: #### H BSAG, HBSAB #### [place] [address] pCO2 80.8 mmHg Critically abnormal 32.0-46.0 [facility] Comment on above: Performed By: #### A BSMARJAN ABOGEL #### [place] [address] Performed By: #### H BSAG, HBSAB #### [place] [address] pH (Bld) 7.057 [pH] Critically abnormal 7.380-7.460 [facility] Comment on above: Result Comment: call ed [facility] - patient no longer there - was told they are in Quality Improvement [facility] - 09/10/2024 19:47:43 EDT Performed By: #### A BSMARJAN ABOGEL #### [place] [address] Performed By: #### H BSAG, HBSAB #### [place] [address] CAIONon 09-10-2024 Calcium Ionized 1.08 mmol/L Low 1.12-1.32 [facility] Comment on above: Order Comment: speci men does not meet 80% minimum fill spoke to VIVIAN Vale 09/10/2024 21:38:07 EDT [facility] Performed By: #### A BSMARJAN ABOGEL #### [place] [address] Performed By: #### H BSAG, HBSAB #### [place] [address] CBCon 09-10-2024 Erythrocyte distribution width (RBC) [Ratio] 13.5 % Normal 11.5-15.5 [facility] Comment on above: Performed By: #### A BSGEL, ABOGEL #### [place] [address] Performed By: #### H BSAG, HBSAB #### [place] [address] Hematocrit (Bld) [Volume fraction] 51.3 % High 34.0-46.0 [facility] Comment on above: Performed By: #### A BSGEL, ABOGEL #### [place] [address] Performed By: #### H BSAG, HBSAB #### [place] [address] Hgb 17.0 G/dL High 12.0-16.0 [facility] Comment on above: Performed By: #### A BSGEL, ABOGEL #### [place] [address] Performed By: #### H BSAG, HBSAB #### [place] [address] MCH (RBC) [Entitic mass] 29.7 pg Normal 27.0-33.0 [facility] Comment on above: Performed By: #### A BSGEL, ABOGEL #### [place] [address] Performed By: #### H BSAG, HBSAB #### [place] [address] MCHC 33.1 G/dL Normal 32.0-36.0 [facility] Comment on above: Performed By: #### A BSGEL, ABOGEL #### [place] [address] Performed By: #### H BSAG, HBSAB #### [place] [address] MCV (RBC) [Entitic vol] 89.8 fL Normal 80.0-99.0 [facility] Comment on above: Performed By: #### A BSMARJAN, ABOGEL #### [place] [address] Performed By: #### H BSAMaxx, HBSAB #### [place] [address] Platelet 324 10 3/mcL Normal 150-450 [facility] Comment on above: Performed By: #### A BSGEL, ABOGEL #### [place] [address] Performed By: #### H BSAMaxx, HBSAB #### [place] [address] Platelet mean volume (Bld) [Entitic vol] 8.4 fL Normal 6.6-10.5 [facility] Comment on above: Performed By: #### A BSMARJAN, ABOGEL #### [place] [address] Performed By: #### H BSAG, HBSAB #### [place] [address] RBC 5.71 10 6/mcL High 4.10-5.30 [facility] Comment on above: Performed By: #### A BSGEL, ABOGEL #### [place] [address] Performed By: #### H BSAG, HBSAB #### [place] [address] WBC 11.8 10 3/mcL High 4.5-10.8 [facility] Comment on above: Performed By: #### A LANDRY MAYBERRY #### [place] [address] Performed By: #### H BSAG, HBSAB #### [place] [address] Erythrocyte distribution width (RBC) [Ratio] 13.6 % Normal 11.5-15.5 [facility] Comment on above: Performed By: #### A SHAWANDA ABOGEL #### [place] [address] Performed By: #### A CHUCK SANON #### [place] [address] Hematocrit (Bld) [Volume fraction] 50.0 % High 34.0-46.0 [facility] Comment on above: Performed By: #### A SHAWANDA ABOMARJAN #### [place] [address] Performed By: #### A CHUCK SANON #### [place] [address] Hgb 16.8 G/dL High 12.0-16.0 [facility] Comment on above: Performed By: #### A SHAWANDA ABOMARJAN #### [place] [address] Performed By: #### A CHUCK SANON #### [place] [address] MCH (RBC) [Entitic mass] 30.1 pg Normal 27.0-33.0 [facility] Comment on above: Performed By: #### A SHAWANDA ABOMARJAN #### [place] [address] Performed By: #### A CHUCK SANON #### [place] [address] MCHC 33.5 G/dL Normal 32.0-36.0 [facility] Comment on above: Performed By: #### A LANDRY MAYBERRY #### [place] [address] Performed By: #### A CHUCK SANON #### [place] [address] MCV (RBC) [Entitic vol] 89.8 fL Normal 80.0-99.0 [facility] Comment on above: Performed By: #### A LANDRY MAYBERRY #### [place] [address] Performed By: #### A CHUCK SANON #### [place] [address] Platelet 331 10 3/mcL Normal 150-450 [facility] Comment on above: Performed By: #### A LANDRY MAYBERRY #### [place] [address] Performed By: #### A CHUCK SANON #### [place] [address] Platelet mean volume (Bld) [Entitic vol] 8.7 fL Normal 6.6-10.5 [facility] Comment on above: Performed By: #### A LANDRY MAYBERRY #### [place] [address] Performed By: #### A CHUCK SANON #### [place] [address] RBC 5.57 10 6/mcL High 4.10-5.30 [facility] Comment on above: Performed By: #### A LANDRY MAYBERRY #### [place] [address] Performed By: #### A CHUCK SANON #### [place] [address] WBC 14.2 10 3/mcL High 4.5-10.8 [facility] Comment on above: Performed By: #### A LANDRY MAYBERRY #### [place] [address] Performed By: #### A CHUCK SANON #### [place] [address] CHEST 1 VIEWon 09-10-2024 CHEST 1 VIEW [place] [id number] [place] [address] Patient: MAGALI RAINEY Phone#: : [phone] Age: 69 Gender: F Pt. Type: ER Account: [id number] Location: [facility] Ordering: MARCO VARELA Exam Date: 09/10/2024/17:21 Family Phys: Charge Code: 336260 Physician: Campbell Order #: [id number] Dose#: PROCEDURE: X-RAY CHEST 1 VIEW COMPARISON: None. INDICATIONS: Unresponsive. FINDINGS: LUNGS: Multifocal infiltrates versus pulmonary edema. Prior exams are not available for comparison. VASCULATURE: Normal. Unremarkable pulmonary vasculature. CARDIAC: Normal. No cardiac silhouette abnormality or cardiomegaly. MEDIASTINUM: Normal. No visible mass or adenopathy. PLEURA: Normal. No effusion or pleural thickening. BONES: Normal. No fracture or visible bony lesion. OTHER: Endotracheal tube terminates above the of bao. Nasogastric tube is present. Distal tip is not visualized but appears to terminate at the gastric fundus. CONCLUSION: 1. Multifocal infiltrates versus pulmonary edema. Dictated by: Tammi Villarreal MD on 09/10/2024 at 17:43 Approved by: Tammi Villarreal MD on 09/10/2024 at 17:47 [facility] Albumin Level 2.9 G/dL Low 3.2-4.8 [facility] Comment on above: Performed By: #### G FR, MG, CMP #### [address] [address] Performed By: #### B FPR, GLUBF, BFCT, PROBF #### [address] [address] Albumin/Globulin [Mass ratio] 1.1 {ratio} Normal 0.9-1.6 [facility] Comment on above: Performed By: #### G FR, MG, CMP #### [address] [address] Performed By: #### B FPR, GLUBF, BFCT, PROBF #### [place] [address] ALP [Catalytic activity/Vol] 106 U/L Normal 38-126 [facility] Comment on above: Performed By: #### G FR, MG, CMP #### [place] [address] Performed By: #### B FPR, GLUBF, BFCT, PROBF #### [place] [address] ALT [Catalytic activity/Vol] 452 U/L High 10-49 [facility] Comment on above: Performed By: #### G FR, MG, CMP #### [place] [address] Performed By: #### B FPR, GLUBF, BFCT, PROBF #### [place] [address] AST [Catalytic activity/Vol] 1313 U/L High 8-34 [facility] Comment on above: Performed By: #### G FR, MG, CMP #### [place] [address] Performed By: #### B FPR, GLUBF, BFCT, PROBF #### [place] [address] Bili Total 1.30 mg/dL High 0.20-1.20 [facility] Comment on above: Result Comment: Use of this assay is not recommended for patients undergoing treatment with eltrombopag due to the potential for falsely elevated results. Performed By: #### G FR, MG, CMP #### [place] [address] Performed By: #### B FPR, GLUBF, BFCT, PROBF #### [place] [address] BUN/Creatinine Ratio 19.5 ratio Normal 10.0-22.0 [facility] Comment on above: Performed By: #### G FR, MG, CMP #### [place] [address] Performed By: #### B FPR, GLUBF, BFCT, PROBF #### [place] [address] Calcium [Mass/Vol] 7.8 mg/dL Low 8.7-10.4 [facility] Comment on above: Performed By: #### G FR, MG, CMP #### [place] [address] Performed By: #### B FPR, GLUBF, BFCT, PROBF #### [place] [address] Chloride [Moles/Vol] 106 mmol/L Normal 98-110 [facility] Comment on above: Performed By: #### G FR, MG, CMP #### [place] [address] Performed By: #### B FPR, GLUBF, BFCT, PROBF #### [place] [address] CO2 [Moles/Vol] 22 mmol/L Normal 22-32 [facility] Comment on above: Performed By: #### G FR, MG, CMP #### [place] [address] Performed By: #### B FPR, GLUBF, BFCT, PROBF #### [place] [address] Creatinine [Mass/Vol] 1.28 mg/dL High 0.50-1.20 [facility] Comment on above: Result Comment: Test ing performed on [email or web address] analyzer using enzymatic creatinine methodology. Performed By: #### G FR, MG, CMP #### [place] [address] Performed By: #### B FPR, GLUBF, BFCT, PROBF #### [place] [address] Electrolyte Balance 18.0 mEq/L High 4.0-15.0 [facility] Comment on above: Performed By: #### G FR, MG, CMP #### [place] [address] Performed By: #### B FPR, GLUBF, BFCT, PROBF #### [place] [address] Globulin 2.7 G/dL Normal 2.5-4.2 [facility] Comment on above: Performed By: #### G FR, MG, CMP #### [place] [address] Performed By: #### B FPR, GLUBF, BFCT, PROBF #### [place] [address] Glucose [Mass/Vol] 258 mg/dL High 82-115 [facility] Comment on above: Performed By: #### G FR, MG, CMP #### [place] [address] Performed By: #### B FPR, GLUBF, BFCT, PROBF #### [place] [address] Potassium [Moles/Vol] 3.5 mmol/L Normal 3.5-5.0 [facility] Comment on above: Performed By: #### G FR, MG, CMP #### [place] [address] Performed By: #### B FPR, GLUBF, BFCT, PROBF #### [place] [address] Sodium [Moles/Vol] 146 mmol/L High 136-145 [facility] Comment on above: Performed By: #### G FR, MG, CMP #### [place] [address] Performed By: #### B FPR, GLUBF, BFCT, PROBF #### [place] [address] Total Protein 5.6 G/dL Low 5.7-8.2 [facility] Comment on above: Performed By: #### G FR, MG, CMP #### [place] [address] Performed By: #### B FPR, GLUBF, BFCT, PROBF #### [address] [address] Urea nitrogen [Mass/Vol] 25.0 mg/dL High 8.0-22.0 [facility] Comment on above: Performed By: #### G FR, MG, CMP #### [place] [address] Performed By: #### B FPR, GLUBF, BFCT, PROBF #### [place] [address] Albumin Level 3.0 G/dL Low 3.2-4.8 [facility] Comment on above: Performed By: #### A LANDRY MAYBERRY #### [place] [address] Performed By: #### A HCUCK SANON #### [place] [address] Albumin/Globulin [Mass ratio] 1.1 {ratio} Normal 0.9-1.6 [facility] Comment on above: Performed By: #### A LANDRY MAYBERRY #### [place] [address] Performed By: #### A CHUCK SANON #### [place] [address] ALP [Catalytic activity/Vol] 121 U/L Normal 38-126 [facility] Comment on above: Performed By: #### A LANDRY MAYBERRY #### [place] [address] Performed By: #### A CHUCK SANON #### [place] [address] ALT [Catalytic activity/Vol] 458 U/L High 10-49 [facility] Comment on above: Performed By: #### A LANDRY MAYBERRY #### [place] [address] Performed By: #### A CHUCK SANON #### [place] [address] AST [Catalytic activity/Vol] 853 U/L High 8-34 [facility] Comment on above: Performed By: #### A LANDRY MAYBERRY #### [place] [address] Performed By: #### A CHUCK SANON #### [place] [address] Bili Total 1.00 mg/dL Normal 0.20-1.20 [facility] Comment on above: Result Comment: Use of this assay is not recommended for patients undergoing treatment with eltrombopag due to the potential for falsely elevated results. Performed By: #### A SHAWANDA ABOGEL #### [place] [address] Performed By: #### A CHUCK SANON #### [place] [address] BUN/Creatinine Ratio 19.2 ratio Normal 10.0-22.0 [facility] Comment on above: Performed By: #### A SHAWANDA ABOMARJAN #### [place] [address] Performed By: #### A CHUCK SANON #### [place] [address] Calcium [Mass/Vol] 7.9 mg/dL Low 8.7-10.4 [facility] Comment on above: Performed By: #### A SHAWANDA ABOMARJAN #### [place] [address] Performed By: #### A CHUCK SANON #### [place] [address] Chloride [Moles/Vol] 105 mmol/L Normal 98-110 [facility] Comment on above: Performed By: #### A SHAWANDA ABOGEL #### [place] [address] Performed By: #### A TALITA ABSMARJAN #### [place] [address] CO2 [Moles/Vol] 24 mmol/L Normal 22-32 [facility] Comment on above: Performed By: #### A SHAWANDA ABOMARJAN #### [place] [address] Performed By: #### A CHUCK SANON #### [place] [address] Creatinine [Mass/Vol] 1.20 mg/dL Normal 0.50-1.20 [facility] Comment on above: Result Comment: Test ing performed on [email or web address] analyzer using enzymatic creatinine methodology. Performed By: #### A SHAWANDA ABOGEL #### [place] [address] Performed By: #### A CHUCK SANON #### [place] [address] Electrolyte Balance 9.0 mEq/L Normal 4.0-15.0 [facility] Comment on above: Performed By: #### A LANDRY MAYBERRY #### [place] [address] Performed By: #### A CHUCK SANON #### [place] [address] Globulin 2.8 G/dL Normal 2.5-4.2 [facility] Comment on above: Performed By: #### A SHAWANDA ABOGEL #### [place] [address] Performed By: #### A CHUCK SANON #### [place] [address] Glucose [Mass/Vol] 303 mg/dL High 82-115 [facility] Comment on above: Performed By: #### A SHAWANDA ABOMARJAN #### [place] [address] Performed By: #### A TALITA ABSMARJAN #### [place] [address] Potassium [Moles/Vol] 4.0 mmol/L Normal 3.5-5.0 [facility] Comment on above: Result Comment: Spec imen slightly hemolyzed. Performed By: #### A SHAWANDA ABOGEL #### [place] [address] Performed By: #### A CHUCK SANON #### [place] [address] Sodium [Moles/Vol] 138 mmol/L Normal 136-145 [facility] Comment on above: Performed By: #### A LANDRY MAYBERRY #### [place] [address] Performed By: #### A CHUCK SANON #### [place] [address] Total Protein 5.8 G/dL Normal 5.7-8.2 [facility] Comment on above: Performed By: #### A LANDRY MAYBERRY #### [place] [address] Performed By: #### A CHUCK SANON #### [place] [address] Urea nitrogen [Mass/Vol] 23.0 mg/dL High 8.0-22.0 [facility] Comment on above: Performed By: #### A LANDRY MAYBERRY #### [place] [address] Performed By: #### A CHUCK SANON #### [place] [address] CMP with eGFRon 09-10-2024 AGE 69 years Normal [facility] Comment on above: Performed By: #### 2 [id number] #### [facility],[address] [place] [address] Albumin [Mass/Vol] 3.5 g/dL Normal 3.4 - 5.0 [facility] Comment on above: Performed By: #### 2 50671 #### [facility],[address] [place] [address] Albumin/Globulin [Mass ratio] 0.9 {ratio} Normal 0.9 - 1.6 [facility] Comment on above: Performed By: #### 2 99988 #### [facility],[address] [place] [address] ALK PHOS 152 U/L High 46 - 116 [facility] Comment on above: Performed By: #### 2 52891 #### [facility],[address] [place] [address] ALT [Catalytic activity/Vol] 391 U/L High 16 - 63 [facility] Comment on above: Performed By: #### 2 12967 #### [facility],[address] [place] [address] Anion gap [Moles/Vol] 19 mmol/L Normal 10 - 20 [facility] Comment on above: Performed By: #### 2 84378 #### [facility],[address] [place] [address] AST [Catalytic activity/Vol] 442 U/L High 13 - 39 [facility] Comment on above: Performed By: #### 2 47511 #### [facility],[address] [place] [address] B/C RATIO 15 ratio Normal 0 - 30 [facility] Comment on above: Performed By: #### 2 91906 #### [facility],[address] [place] [address] Bilirubin [Mass/Vol] 0.9 mg/dL Normal 0.2 - 1.0 [facility] Comment on above: Performed By: #### 2 97410 #### [facility],[address] [place] [address] Calcium [Mass/Vol] 9.3 mg/dL Normal 8.5 - 10.1 [facility] Comment on above: Performed By: #### 2 88692 #### [facility],[address] [place] [address] Chloride [Moles/Vol] 103 mmol/L Normal 98 - 107 [facility] Comment on above: Performed By: #### 2 20098 #### [facility],[address] [place] [address] CMP with eGFR Normal [facility] Comment on above: Result Comment: COMP REHENSIVE METABOLIC PANEL Performed By: #### 2 27585 #### [facility],[address] [place] [address] CO2 [Moles/Vol] 23.4 mmol/L Normal 21.0 - 32.0 [facility] Comment on above: Performed By: #### 2 64979 #### [facility],[address] [place] [address] Creatinine [Mass/Vol] 1.24 mg/dL High 0.55 - 1.02 [facility] Comment on above: Performed By: #### 2 13512 #### [facility],[address] [place] [address] 11305 eGFR 43 ML/MINUTE Low 60 - 999 [facility] Comment on above: Performed By: #### 2 75010 #### [facility],[address] [place] [address]76 eGFR(AA) 52 ML/MINUTE Low 60 - 999 [facility] Comment on above: Result Comment: ACCO RDING TO THE NATIONAL KIDNEY DISEASE EDUCATION PROGRAM(NKDE), A NORMAL eGFR IS A VALUE GREATER THAN OR EQUAL TO 60 ML/MIN/1.73 SQ METERS. CHRONIC KIDNEY DISEASE: <60mL/MIN/1.73 SQ METERS KIDNEY FAILURE: <15mL/MIN/1.73 SQ METERS THIS TEST SHOULD ONLY BE USED FOR PATIENTS 18 YEARS OF AGE AND OLDER. Performed By: #### 2 23993 #### [facility],[address] [place] [address] Globulin (S) [Mass/Vol] 4.1 g/dL High 1.5 - 3.8 [facility] Comment on above: Performed By: #### 2 74644 #### [facility],[address] [place] [address] Glucose [Mass/Vol] 286 mg/dL High 74 - 106 [facility] Comment on above: Performed By: #### 2 26008 #### [facility],[address] [place] [address] Potassium [Moles/Vol] 3.6 mmol/L Normal 3.5 - 5.1 [facility] Comment on above: Performed By: #### 2 44010 #### [facility],[address] [place] [address] Protein [Mass/Vol] 7.6 g/dL Normal 6.4 - 8.2 [facility] Comment on above: Performed By: #### 2 52799 #### [facility],[address] [place] [address] Sodium [Moles/Vol] 142 mmol/L Normal 136 - 145 [facility] Comment on above: Performed By: #### 2 68331 #### [facility],[address] [place] [address] Urea nitrogen [Mass/Vol] 19 mg/dL High 7 - 18 [facility] Comment on above: Performed By: #### 2 24218 #### [facility],[address] [place] [address] ED MED ADMINISTRATION DETAIL on 09-10-2024 ED MED ADMINISTRATION DETAIL [employer] Medication Administration Record [address] [address] [id number] 09/10/2024 Patient: MAGALI RAINEY Sex: Female : 1955 Age: 69y MEASUREMENTS: Wt: 90.0 kg, Ht/David: 65.0 in, BMI: 33.02 ALLERGIES: No known drug allergies Medication Ordered Medication Administration Date/Time Heparin IVP 4000 17:48 07 Heparin IVP 4000 mg given via Site# 1. - 17:53 Leonel Given mg (NOW x1, Refer Isaac Narvaez 17:48 09/10/2024 to Heparin Leonel Narvaez R.N. Nomogram for 17:48 09/10 Medication Co-sign: Verified dosage, concentration Scanned Dosing/Titration, and rate. - 17:53 Mariel Salinas R.N. HIGH ALERT MEDICATION, Round to nearest 50-100 units) Order Comments: 17:19 09/10/2024 (Cardiac Max dose 4000 units DVT/PE Max dose 8750 units) Marco Varela D.O. Aspirin ID 300 mg 17:24 09/10 Aspirin ID 300 mg Given (NOW x1) given. - 17:24 Donnie Espinosa, 17:24 09/10/2024 RErin Espinosa R.N. Not Scanned 1 of 3 [employer] Medication Ordered Medication Administration Date/Time Propofol Drip 17:45 09/10 Propofol Drip Started (Diprivan) IV (Diprivan) IV 10mg/ml Premix 17:45 09/10/2024 10mg/ml Premix 1000 mg started at 450 mcg/min Leonel Narvaez R.N. 1000 mg at 5 (5 mcg/kg/min) via Site# 1. Scanned mcg/kg/min (450 Allergies verified and confirmed mcg/min) (NOW x1, 5 rights. Via IV pump. IV patency HIGH ALERT established. Information MEDICATION, Max reviewed with patient including 50mcg/kg/min, Use reason for taking this vented tubing) medication. - 17:46 Leonel Narvaez R.N. 17:45 07 Medication Co-sign: Verified dosage, concentration and rate. - 17:46 Belem Barclay R.N. 17:47 07 Medication Rate Changed: bag #1 increased to 3150 mcg/min (35 mcg/kg/min) via IV pump. Confirmed 5 Rights. IV patency established. IV site checked: no pain, redness, or swelling. - 17:47 Leonel Narvaez R.N. 18:02 09/10 Medication Continued: upon transfer at the rate of 3150 mcg/min (35 mcg/kg/min). 100 mL remaining in bag. IV patency established. IV site checked: no pain, redness, or swelling. - 18:22 Leonel Narvaez R.N. 2 of 3 [employer] Medication Ordered Medication Administration Date/Time Furosemide (Lasix) 17:53 07 Furosemide (Lasix) Given IVP 40 mg IVP 40 mg given via Site# 2. - 17:53 09/10/2024 17:54 Isaac Bajwa R.N. Scanned NitroGLYCERIN Completed Drip IV 50mg/250ml 18:09/10/2024 Premix 50 mg Leonel Narvaez R.N. 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 3 of 3 Normal [facility] ED NURSES CLINICAL NOTEon ED NURSES CLINICAL NOTE Nurse Narrative Nurse Clinical Narrative [place] [id number] [facility] [place] [address] [phone] 09/10/2024 16:56:00 Patient: MAGALI RAINEY Sex: Female : 1955 Age: 69y Disposition: Transfer to [facility] Disposition Decision Time: 17:57 09/10/2024 Departure Time: 18:09/10/2024 TRIAGE Arrived by EMS. Historian: (EMS). ( Witnessed arrest, bystander CPR initiated.). Triage time: 16:56 09/10/2024. Acuity: LEVEL 1. Chief Complaint: CARDIAC ARREST. Onset: just prior to arrival. No weakness. SEPSIS SCREEN: NEGATIVE. SIRS criteria positive: heart rate greater than 90 and respiratory rate PaCo2 less than 32mmHg. -- 17:09/10/24 EDT Leonel Narvaez R.N. 17:00 09/10/24. ( witnessed down for 2 minutes, initial rhythm was vfib, 1mg epi, 1 shock put patient into vtach, 100mg amiodarone given and another shock and patient was back in sinus rhythm). The patient has had chest pain. -- 18:20 09/10/24 EDT Leonel Narvaez R.N. 17:09/10/24. BP: 151/94 MAP: 113. HR: 108. RR: 0. O2 saturation: 58% Temperature: Unable to obtain . Pain: Unable to obtain. -- 17:09/10/24 EDT Leonel Narvaez R.N. Measurements: 17:09/10/24 Wt: 90.0 kg, Ht/David: 65.0 in, BMI: 33.02 -- 17:09/10/24 EDT Leonel Narvaez R.N. Medications: 1 of 6 Nurse Narrative unable to obtain home medications -- 18:09/10/24 NEEL Narvaez R.N. Allergies: no known drug allergies -- 18:09/10/24 NEEL Narvaez R.N. Problems: unable to obtain problem list -- 17:09/10/24 NEEL Narvaez R.N. Surgeries: unable to obtain surgical history -- 17:09/10/24 NEEL Narvaez R.N. History 16:56 09/10/24. SOCIAL HX: Never smoker. No alcohol use or drug use. Infectious disease exposure: Screening unobtainable. ABUSE ASSESSMENT: Unable to obtain. SELF HARM ASSESSMENT: Self harm assessment unable to obtain. FALL RISK ASSESSMENT: Fall risk assessment completed. Risk factors identified include patient impairment. Fall interventions initiated. Patient placed in wheelchair. Side rails up x2. Bed in low position. Patient visible from nurses' station. -- 17:09/10/24 NEEL Narvaez R.N. 18:09/10/24. SOCIAL HX: Recent travel unknown. -- 18:09/10/24 NEEL Narvaez R.N. Interventions 16:56 09/10/24. Advanced care plan discussed with family. Patient does not have advanced directive. (full code). -- 17:09/10/24 NEEL Narvaez R.N. PHYSICAL ASSESSMENT 16:09/10/24. Vaughn Coma Scale: 3 - eyes open - none (1); best verbal response - none (1); best motor response - none (1). -- 18:09/10/24 NEEL Narvaez R.N. 2 of 6 Nurse Narrative 17:09/10/24. GENERAL / NEURO / PSYCH: Decreased awareness (does not open eyes to pain). RESPIRATORY: No spontaneous respirations. Airway/breathing assisted by [employer]. Decreased breath sounds diffusely over both lungs. Coarse crackles present diffusely in both lungs. CVS: Cardiac rhythm: sinus rhythm; 2nd degree AV block with 2:1 conduction. Pulses: right radial 1+; left radial 1+. Capillary refill is not greater than 2 seconds. GI / : Abdomen soft and nontender. Bowel sounds within normal limits. SKIN: Peripheral cyanosis. Skin is prominently pale. Skin is markedly cool and moderately diaphoretic. -- 18:15 09/10/24 EDT Leonel Narvaez R.N. NURSING PROGRESS NOTES 16:53 09/10/24. Site #3 in the left leg using a 20g, 1 inch needle. -- 17:33 09/10/24 VENKATESHT Leonel Narvaez R.N. 17:04 09/10/24. INTUBATION: Intubation performed by ED physician. Assisted by two nurses, one tech and respiratory therapist. Preparation: pulse oximeter, security monitor and NIBP monitor applied, oxygen administration, BVM, suction and intubation tray at bedside, IV established and pre-oxygenated. Procedure: 7.5 fr ETT via oral route. Proper airway placement confirmed by equal rise and fall of chest, colorimetric device. Post-procedure: the patient was stable, tube secured, suctioning performed, connected to ventilator, bagged w/ BVM and NGT / OGT in place. -- 17:31 09/10/24 VENKATESHT Leonel Narvaez R.N. 17:06 09/10/24. Transfer request (17:06 09/10/2024). (Spoke with Tee from the [employer] dispatch. They will give us a call back with an ETA.). -- 17:57 09/10/24 VENKATESHT Mariel Narvaez 17:08 09/10/24. NG TUBE: 16 fr orogastric tube inserted with no difficulty. Placement confirmed by auscultation and return of gastric contents. Return: brown fluid. Tube secured. Attached to low suction. Patient tolerated procedure well. -- 17:32 09/10/24 VENKATESHT Leonel Narvaez R.N. 17:09 09/10/24. Transfer request (17:09/10/2024). (Rudy interventionalist has been paged. Demographics and EKG have been faxed to the yard laborer). -- 17:59 09/10/24 VENKATESHT Mariel Narvaez 17:12 09/10/24. URINARY CATHETER: 16 fr hernandez catheter placed in ED assisted by two nurses. Reason for catheter: patient's decrease (more content not included)... Normal [facility] ED ORDER SHEET (CPOE ONLY)on 09-10-2024 ED ORDER SHEET (CPOE ONLY) Order Sheet Order Sheet [facility] [address] [place] [address] [phone] 09/10/2024 Patient: MAGALI RAINEY [facility] [id number] Sex: Female : 1955 Age: 69y MEASUREMENTS: Wt: 90.0 kg, Ht/David: 65.0 in, BMI: 33.02 ALLERGIES: No known drug allergies MEDICATION/IV/DRIP/F LUID ORDERS Order Description Priority Entered Acknowledged Completed Heparin [id number] mg (NOW x1, 17:19 09/10/2024 17:23 17:53 Refer to Heparin Nomogram for Marco Varela, 09/10/2024 09/10/2024 Dosing/Titration, HIGH ALERT D.OLeonel Bermudez, MEDICATION, Round to nearest R.N. R.N. 50-100 units) Order Comments: 17:19 09/10/2024: (Cardiac Max dose 4000 units DVT/PE Max dose 8750 units) Marco Varela D.O. Aspirin PR300 mg (NOW x1) 17:19 09/10/2024 17:23 17:24 Marco Varela, 09/10/2024 09/10/2024 Kori.ODonnie Bermudez R.N. RPepeN. Etomidate IVP20 mg (NOW x1) 17:42 09/10/2024 17:45 Marco Varela, 09/10/2024 Dexter Narvaez R.N. Order Comments: 17:02 09/10/2024: Order Completed. Leonel Narvaez R.N. Rocuronium [id number] mg (NOW 17:42 09/10/2024 17:45 x1, HIGH ALERT MEDICATION) Marco Varela, 09/10/2024 1 of 4 Order Sheet Dexter Narvaez R.N. Order Comments: 17:02 09/10/2024: Order Completed. Leonel Narvaez R.N. Propofol Drip (Diprivan) IV 17:42 09/10/2024 17:45 17:46 10mg/ml [id number] mg at 5 Marco Varela, 09/10/2024 09/10/2024 mcg/kg/min (450 mcg/min) (NOW Leonel Toney, x1, HIGH ALERT MEDICATION, R.N. R.N. Max 50mcg/kg/min, Use vented tubing) Furosemide (Lasix) IVP40 mg 17:50 09/10/2024 17:53 17:54 Marco Varela, 09/10/2024 09/10/2024 Leonel Toney, Isaac RErin Reason for ordering with alerts: Benefits outweigh risks --17:50 09/10/2024 Marco Varela D.O. NitroGLYCERIN Drip IV 17:58 09/10/2024 18:02 18:02 50mg/250ml [id number] mg at 5 Marco Varela, 09/10/2024 09/10/2024 mcg/min (NOW x1) Leonel Toney R.N. R.Akil Order Comments: 18:02 09/10/2024: given to flight crew Leonel Narvaez R.N. LAB ORDERS Order Description Priority Entered Acknowledged Collected Completed CMP Stat Stat 17:19 09/10/2024 17:23 09/10/2024 Sasha Da Silva D.O. R.N. EKG - ED Stat Stat 17:19 09/10/2024 17:23 09/10/2024 Sasha Da Silva D.O. R.N. Troponin-I Protocol Stat 17:19 09/10/2024 17:23 09/10/2024 (STAT 1hr) (Sched: q1h Marco Espinosa, X2); Stat 1 of 2 Dexter Varela R.N. 2 of 4 Order Sheet Troponin-I Protocol Stat 17:19 09/10/2024 18:20 09/10/2024 18:20 09/10/2024 (STAT 1hr) (Sched: q1h Isaac Rivera R.N. X2); Stat 2 of 2 Dexter Varela DIAGNOSTIC STUDY ORDERS Order Description Priority Entered Acknowledged Completed Chest 1V Stat Stat 17:19 09/10/2024 17:23 Marco Varela, 09/10/2024 Dexter Espinosa R.N. Reason for Study: stemi STAFF ORDERS Order Description Priority Entered Acknowledged Collected Completed Oxygen titrate to 92% 17:19 09/10/2024 17:23 09/10/2024 Sasha Da Silva D.O. R.N. Fermentation Operator 17:19 09/10/2024 17:23 09/10/2024 Sasha Da Silva D.O. RPepeNPepe Vital signs every 15 17:19 09/10/2024 17:23 09/10/2024 minutes Sasha Da Silva D.O. R.N. IV Saline Lock 17:19 09/10/2024 17:23 09/10/2024 Sasha Da Silva D.O. R.N. 3 of 4 Order Sheet [Electronically signed by Marco Varela D.O. (09/10/2024 18:24 EDT)] 4 of 4 Normal [facility] ED PHYSICIAN CLINICAL REPORT on 09-10-2024 ED PHYSICIAN CLINICAL REPORT Narrative Physician Clinical Narrative [address] [address] [phone] 09/10/2024 16:56:00 Patient: MAGALI RAINEY Sex: Female : 1955 Age: 69y Disposition: Transfer to [facility] Disposition Decision Time: 17:57 09/10/2024 Departure Time: 18:03 09/10/2024 Measurements Wt: 90.0 kg, Ht/David: 65.0 in, BMI: 33.02 Initial Vital Sign Measured Time BP MAP HR RR O2Sat ETCO2 Temp Pain GCS RTS 16:56 09/10/2024 3 Time Seen: 16:56 09/10/2024. Arrived- By ambulance. Independent historian- EMS personnel. Unobtainable due to patient's unresponsiveness. HISTORY OF PRESENT ILLNESS Chief Complaint: CARDIAC ARREST. This started just prior to arrival. (Patient presents via EMS with concern for cardiac arrest status post Ross. Patient was at a local [employer] with her son when she fell over Ms. Found to be pulseless. Bystander CPR performed. EMS continued to perform CPR upon arrival. Treated with intravenous epinephrine and amiodarone as well as 2 defibrillations. Patient with agonal respirations upon arrival.). REVIEW OF SYSTEMS Unobtainable secondary to condition. 1 of 8 Narrative PAST HISTORY unable to obtain problem list Surgeries: unable to obtain surgical history Medications: unable to obtain home medications Allergies: no known drug allergies SOCIAL HISTORY No alcohol use or drug use. ADDITIONAL NOTES The nursing notes have been reviewed. PHYSICAL EXAM Vital Signs: Have been reviewed. Appearance: No visible trauma. ENT: (agonal respirations with extensive frothy sputum). CVS: Tachycardia. Respiratory: Agonal respirations. Crackles present. Abdomen: Soft. Skin: Pallor. Extremities: No lower extremity edema. LABS, X-RAYS, AND EKG 12-LEAD EKG: EKG time: 17:01 09/10/2024. Normal sinus rhythm. Rate: 100. Normal P waves. ST elevation in lead aVL, V3, V4 and V5- consistent with anterior and lateral infarction. The study has been interpreted 2 of 8 Narrative contemporaneously by me. Interpretation time: 17:02 09/10/2024. Laboratory Tests: CMP with eGFR Final CHASE: 09/10/2024 17:00:00 EDT MsgRcvd: 09/10/2024 18:14 EDT Lab Test Result Reference Status Received Comments COMPREHENSIVE 09/10/2024 CMP with eGFR Final METABOLIC 18:14 EDT PANEL 09/10/2024 SODIUM 142 mmol/l 136 - 145 Final 18:14 EDT 09/10/2024 POTASSIUM 3.6 mmol/L 3.5 - 5.1 Final 18:14 EDT 09/10/2024 CHLORIDE 103 mmol/L 98 - 107 Final 18:14 EDT 09/10/2024 CO2 23.4 mmol/L 21.0 - 32.0 Final 18:14 EDT 286 mg/dl 09/10/2024 GLUCOSE Above high 74 - 106 Final 18:14 EDT normal 19 mg/dl 09/10/2024 BUN Above high 7 - 18 Final 18:14 EDT normal 1.24 mg/dl 09/10/2024 CREATININE Above high 0.55 - 1.02 Final 18:14 EDT normal 3 of 8 Narrative Lab Test Result Reference Status Received Comments 442 U/L 09/10/2024 AST/SGOT Above high 13 - 39 Final 18:14 EDT normal 152 U/L 09/10/2024 ALK PHOS Above high 46 - 116 Final 18:14 EDT normal 09/10/2024 CALCIUM 9.3 mg/dl 8.5 - 10.1 Final 18:14 EDT TOTAL 09/10/2024 7.6 g/dl 6.4 - 8.2 Final PROTEIN 18:14 EDT 09/10/2024 ALBUMIN 3.5 g/dL 3.4 - 5.0 Final 18:14 EDT 4.1 G/DL 09/10/2024 GLOBULIN Above high 1.5 - 3.8 Final 18:14 EDT normal 09/10/2024 A/G RATIO 0.9 0.9 - 1.6 Final 18:14 EDT 09/10/2024 TOTAL BILI 0.9 mg/dl 0.2 - 1.0 Final 18:14 EDT 09/10/2024 B/C RATIO 15 ratio 0 - 30 Final 18:14 EDT 391 U/L 09/10/2024 ALT/SGPT Above high 16 - 63 Final 18:14 EDT normal 09/10/2024 ANION GAP 19 mmol/L 10 - 20 Final 18:14 EDT 09/10/2024 AGE 69 years Final 18:14 EDT 4 of 8 Narrative Lab Test Result Reference Status Received Comments 43 ML/MINUTE 09/10/2024 eGFR 60 - 999 Final Below low normal 18:14 EDT ACCORDING TO THE NATIONAL KIDNEY DISEASE EDUCATION PROGRAM(NKDE), A NORMAL eGFR IS A VALUE GREATER THAN OR EQUAL TO 60 ML/MIN/1.73 SQ METERS. 52 ML/MINUTE 09/10/2024 CHRONIC KIDNEY eGFR(AA) 60 - 999 Final Below low normal 18:14 EDT DISEASE: <60mL/MIN/1.73 SQ METERS KIDNEY FAILURE: <15mL/MIN/1.73 SQ METERS THIS TEST SHOULD ONLY BE USED FOR PATIENTS 18 YEARS OF AGE AND OLDER. TROPONIN Final CHASE: 09/10/2024 17:00:00 EDT MsgRcvd: 09/10/2024 18:14 EDT Lab Test Result Reference Status Received Comments 5 of 8 Narrative Lab Test Result Reference Status Received Comments { CALLED TO VIVIAN PIERCE BY 78.5 pg/mL 09/10/2024 18:14 SHANTELLE 1814 HS TROPONIN Above upper panic 0.0 - 51.4 Final EDT { READ BACK limits BY STANRN BY SHANTELLE 1810 Diagnostic Study Tests: CHEST 1 VIEW Final EXAM Date: 09/10/2024 17:30:00 EDT MsgRcvd: 09/10/2024 17:51 EDT [place] (more content not included)... Normal [facility] ED [facility] BILL 09-10-2024 ED [facility] [address] [place] [address] [phone] 09/10/2024 Patient: MAGALI RAINEY Sex: Female : 1955 Age: 69y Facility Professional Category Item Description Code Code Quantity Fee Total Drugs Normal Saline 319243 1 $0.00 $0.00 1000cc (721725) Nurse/E/M EMERGENCY 050795 1 $0.00 $0.00 DEPT VISIT HIGH SEVERITYFUNCJ (63339-11) Nurse/IV/IM/Infusion s Drip/IVPB initial 401590 1 $0.00 $0.00 (49095) Nurse/IV/IM/Infusion s IVP additional 015452 1 $0.00 $0.00 push (78105) Nurse/IV/IM/Infusion s IVP initial (63263) 467221 1 $0.00 $0.00 Nurse/Procedures Respiratory 475427 1 $0.00 $0.00 therapy - inhalation (22078) Nurse/Supplies #18 [place] 236370 1 $0.00 $0.00 (195874) Nurse/Supplies 16 Fr LATEX 035747 1 $0.00 $0.00 FREE Hernandez Kit (033672) 1 of 2 [facility] Professional Category Item Description Code Code Quantity Fee Total Nurse/Supplies Glidescope Lopro 078668 1 $0.00 $0.00 S4 (149233) Nurse/Supplies Oxisensor Adult 3403674 1 $0.00 $0.00 (7923942) Nurse/Supplies Oxygen in the ED 642292 1 $0.00 $0.00 (391623) Nurse/Supplies Vented Tubing 471710 1 $0.00 $0.00 Set (077913) Physician/Procedures Hernandez catheter 053617 1 $0.00 $0.00 (30603) Physician/Procedures Intubation (19939) 380120 510621 1 $0.00 $0.00 Grand $0.00 Total Providers Marco Varela D.O. Chief Complaint CARDIAC ARREST. Principal Diagnosis Cardiac arrest. Pulmonary edema. Acute myocardial infarction. ICD-10 Codes I46.9: Cardiac arrest, cause unspecified T70.29XA: Other effects of high altitude, initial encounter I21.3: ST elevation (STEMI) myocardial infarction of unspecified site 2 of 2 Normal [facility] ED VISIT SUMMARYon ED VISIT SUMMARY Visit Overview Visit Overview [place] [address] [place] [address] [phone] 09/10/2024 Patient: MAGALI RAINEY Sex: Female : 1955 Age: 69y 09/10/2024 06:34 PM EDT ED Arrival:16:56 09/10/2024 EDT Status: Recent Travel:unknown Language:eng Adv Directive:No Isolation Status: Infectious Disease Ethnicity:N Fall Risk:risk Exposure:unknown Measurements:5'5 / 165.1 Self-Harm Status:unknown risk Sepsis Screen:negative cm 198.4 lb / 90.0 kg Chief Complaint:CARDIAC ARREST and (Witnessed arrest, bystander CPR initiated. ) ALLERGIES No Known Drug Allergies HOME MEDICATIONS Unable To Obtain PAST MEDICAL HISTORY / PROBLEMS Recent travel unknown 1 of 4 Visit Overview Unable To Obtain PAST SURGICAL HISTORY Unknown SOCIAL HISTORY Smoking status: No Alcohol use: No Drug use: No ED COURSE MEDICATIONS GIVEN IN EMERGENCY DEPARTMENT 17:24 09/10/24 Aspirin ID 300 mg 17:45 09/10/24 Propofol Drip (Diprivan) IV 10mg/ml Premix 1000 mg 450 mcg/min (5 mcg/kg/min) 17:48 09/10/24 Heparin IVP 4000 mg 17:53 09/10/24 Furosemide (Lasix) IVP 40 mg IV SITE INFORMATION 17:26 09/10/24 Site #1 left AC, 20g. 17:33 09/10/24 Site #2 right AC, 18g. Saline lock. INTAKE OUTPUT REASSESMENT (most recent) 17:05 09/10/24. GENERAL / NEURO / PSYCH: Decreased awareness (does not open eyes to pain). RESPIRATORY: No spontaneous respirations. Airway/breathing assisted by Ambu. Decreased breath sounds diffusely over both lungs. Coarse crackles present diffusely in both lungs. CVS: Cardiac rhythm: sinus rhythm; 2nd degree AV block with 2:1 conduction. Pulses: right radial 1+; left radial 1+. Capillary refill is not greater than 2 seconds. GI / : Abdomen soft and nontender. Bowel sounds within normal limits. SKIN: Peripheral cyanosis. Skin is prominently pale. Skin is markedly cool and moderately diaphoretic. VITAL SIGNS First Vitals Last Vitals 2 of 4 Visit Overview First Vitals Last Vitals Temp 16:56 09/10/24 Temp 17:48 09/10/24 BP 16:56 09/10/24 BP 17:48 09/10/24 152/103 HR 16:56 09/10/24 HR 17:48 09/10/24 115 RR 16:56 09/10/24 RR 17:48 09/10/24 O2 Sat 16:56 09/10/24 O2 Sat 17:48 09/10/24 Pain 16:56 09/10/24 Pain 17:48 09/10/24 ETCO2 16:56 09/10/24 ETCO2 17:48 09/10/24 GCS 16:56 09/10/24 3 GCS 17:48 09/10/24 RTS 16:56 09/10/24 RTS 17:48 09/10/24 PROCEDURES Intubation NURSING INTERVENTIONS NG tube Urinary catheter Respiratory therapy LABS / STUDIES LABS / STUDIES ORDERED Chest 1V CMP EKG - ED Troponin-I Protocol (STAT 1hr) Troponin-I Protocol (STAT 1hr) LABS - ABNORMAL RESULTS TROPONIN HS TROPONIN 78.5 pg/mL () CLINICAL IMPRESSION ACUTE MYOCARDIAL INFARCTION CARDIAC ARREST 3 of 4 Visit Overview PULMONARY EDEMA 4 of 4 Normal [facility] ED VITALS FLOW SHEETon 09-10 ED VITALS FLOW SHEET Vitals Vital Sign Flow Sheet [address] [place] [address] [phone] 09/10/2024 Patient: MAGALI RAINEY Sex: Female : 1955 Age: 69y Measurements Wt: 90.0 kg, Ht/David: 65.0 in, BMI: 33.02 Measured Time BP MAP HR RR O2Sat ETCO2 Temp Pain GCS RTS 17:48 09/10/2024 152/103 118 115 17:47 09/10/2024 116 87% 17:45 09/10/2024 133/84 95 111 17:42 09/10/2024 139/89 105 108 17:42 09/10/2024 110 88% 17:40 09/10/2024 143/91 101 111 17:37 09/10/2024 105 88% 17:37 09/10/2024 142/93 103 109 17:34 09/10/2024 145/94 111 132 17:32 09/10/2024 133 85% 17:30 09/10/2024 185/125 140 125 17:28 09/10/2024 192/123 142 110 17:27 09/10/2024 116 79% 17:03 09/10/2024 151/94 113 108 0 58% 16:56 09/10/2024 3 1 of 2 Vitals 2 of 2 Normal [facility] FIBon 09-10-2024 Fibrinogen 377 mg/dL Normal 250-560 [facility] Comment on above: Result Comment: Spec imen hemolyzed. Results may be affected. Performed By: #### A BSGEL, ABOGEL #### [place] [address] Performed By: #### A BOGSHALINI ABSGEL #### [place] [address] LABORATORYOrdered By: Hal Tomas on 09-10-2024 RBC Product Ready RBC Ready for Pickup (09/10/24 11:55 PM) Normal AH BB Manual SS ABO and Rh group Nom (Bld) Blood group B Rh(D) positive Invalid Interpretation Code AH BB Auto SS Blood group antibody screen Ql Negative ABSC (09/10/24 11:27 PM) Normal AH BB Auto SS RBC Product Ready RBC Ready for Pickup (09/10/24 11:23 PM) Normal BB Manual SS LABORATORYOrdered By: Anju Howard on 09-10-2024 CO2 [Moles/Vol] 17.1 mmol/L Low 22.0 - 30.0 mmol/L AH Main Rapid Comm SS HCO3 (Bld) [Moles/Vol] 16.4 mmol/L Low 21.0 - 29.0 mmol/L AH Main Rapid Comm SS Oxygen (Bld) [Partial pressure] 338.7 mm[Hg] High 74.0 - 108.0 mm Hg AH Main Rapid Comm SS pCO2 22.9 mm[Hg] Low 32.0 - 46.0 mm Hg AH Main Rapid Comm SS pH (Bld) 7.472 [pH] High 7.380 - 7.460 Main Rap id Comm SS Sodium [Moles/Vol] -5.7000 mmol/L Invalid Interpretation Code AH Main Rapid Comm SS Calcium Ionized 1.08 mmol/L Low 1.12 - 1.32 mmol/L AH Main Rapid Comm SS LABORATORYOrdered By: SYSTEM SYSTEM on 09-10-2024 Albumin BCP dye [Mass/Vol] 2.9 G/dL Low 3.2 - 4.8 G/dL AH ADM SS Albumin/Globulin [Mass ratio] 1.1 {ratio} Normal 0.9 - 1.6 ratio AH ADM SS ALP [Catalytic activity/Vol] 106 U/L Normal 38 - 126 U/L AH ADM SS ALT No additional P-5'-P [Catalytic activity/Vol] 452 U/L High 10 - 49 U/L AH ADM SS AST [Catalytic activity/Vol] 1313 U/L High 8 - 34 U/L AH ADM SS Basophils (Bld) [#/Vol] 0.0 103/mcL Normal 0.0 - 0.3 10^3/mcL AH Workflow SS Basophils/100 WBC (Bld) 0.3 % Normal 0.0 - 2.5 % AH Workflow SS Bilirubin [Mass/Vol] 1.30 mg/dL High 0.20 - 1.20 mg/dL AH ADM SS Comment on above: Interpretive Data: U se of this assay is not recommended for patients undergoing treatment with eltrombopag due to the potential for falsely elevated results. Calcium [Mass/Vol] 7.8 mg/dL Low 8.7 - 10. 4 mg/dL AH ADM SS Chloride [Moles/Vol] 106 mmol/L Normal 98 - 110 mEq/L AH ADM SS CO2 [Moles/Vol] 22 mmol/L Normal 22 - 32 mEq/L ADM SS Creatinine [Mass/Vol] 1.28 mg/dL High 0.50 - 1.20 mg/dL AH ADM SS Comment on above: Interpretive Data: T esting performed on [email or web address] analyzer using enzymatic creatinine methodology. Electrolyte Balance 18.0 mEq/L High 4.0 - 15 .0 mEq/L ADM SS Eosinophils (Bld) [#/Vol] 0.0 103/mcL Normal 0.0 - 0.7 10^3/mcL AH Workflow SS Eosinophils/100 WBC (Bld) 0.2 % Normal 0.0 - 6.0 % Workflow SS Erythrocyte distribution width (RBC) [Ratio] 13.5 % Normal 11.5 - 15.5 % Workflow SS Estimated Glomerular Filtration Rate 46 ml/min/1.73sqm Invalid Interpretation Code ADM SS Comment on above: Interpretive Data: Stages of Chronic Kidney Disease (CKD) Stage Description eGFR(ml/min/1.73 sq.m.) CKD 1 Normal kidney function or >=90 normal kindney function with possible kidney damage (ex. Proteinuria) CKD 2 Kidney damage with mild loss 60-89 of kidney function CKD 3a Mild to moderate loss of kidney 45-59 function CKD 3b Moderate to severe loss of 30-44 of kindey function CKD 4 Severe loss of kidney function 15-29 CKD 5 Kidney failure <15 Note: (go live 2024) the eGFR calculation was updated to the 2020 CKD-EPI creatinine equation without a race factor to calculate the eGFR results. Globulin 2.7 G/dL Normal 2.5 - 4.2 G/dL ADM SS Glucose [Mass/Vol] 258 mg/dL High 82 - 115 mg/dL AH ADM SS Hematocrit (Bld) [Volume fraction] 51.3 % High 34.0 - 46.0 % AH Workflow SS Hemoglobin (Bld) [Mass/Vol] 17.0 G/dL High 12.0 - 16.0 G/dL AH Workflow SS Lactate [Moles/Vol] 4.2 mmol/L High 0.5 - 2. 2 mmol/L ADM SS Lymphocytes (Bld) [#/Vol] 1.6 103/mcL Normal 0.9 - 4.3 10^3/mcL AH Workflow SS Lymphocytes/100 WBC (Bld) 14.0 % Low 20.0 - 40.0 % AH Workflow SS Magnesium [Mass/Vol] 1.8 mg/dL Normal 1.6 - 2 .4 mg/dL AH ADM SS MCH (RBC) [Entitic mass] 29.7 pg Normal 27.0 - 33.0 pg AH Workflow SS MCHC 33.1 G/dL Normal 32.0 - 36.0 G/dL AH Workflow SS MCV (RBC) [Entitic vol] 89.8 fL Normal 80.0 - 99.0 fL AH Workflow SS Monocytes (Bld) [#/Vol] 0.2 103/mcL Normal 0.1 - 1.4 10^3/mcL AH Workflow SS Monocytes/100 WBC (Bld) 1.7 % Low 2.0 - 13.0 % AH Workflow SS Neutrophils (Bld) [#/Vol] 9.9 103/mcL High 2.3 - 8.1 10^3/mcL AH Workflow SS Neutrophils/100 WBC (Bld) 83.8 % High 50.0 - 75.0 % AH Workflow SS Platelet mean volume (Bld) [Entitic vol] 8.4 fL Normal 6.6 - 10.5 fL AH Workflow SS Platelets (Bld) [#/Vol] 324 103/mcL Normal 150 - 450 10^3/mcL AH Workflow SS Potassium [Moles/Vol] 3.5 mmol/L Normal 3.5 - 5.0 mEq/L AH ADM SS Protein [Mass/Vol] 5.6 G/dL Low 5.7 - 8.2 G/dL AH ADM SS RBC (Bld) [#/Vol] 5.71 106/mcL High 4.10 - 5.3 0 10^6/mcL AH Workflow SS Sodium [Moles/Vol] 146 mmol/L High 136 - 145 mEq/L AH ADM SS Troponin I.cardiac DL <= 0.01 ng/mL [Mass/Vol] ng/L High 0 - 34 ng/L AH ADM SS Comment on above: Interpretive Data: High Sensitive Troponin I Reference Ranges: Female: 0-34 ng/L Male: 0-54 ng/L Testing performed on [employer] analyzer using direct chemiluminescent technology. TSH Qn 2.986 mIU/mL Normal 0.550 - 4.780 mIU/mL ADM SS Urea nitrogen [Mass/Vol] 25.0 mg/dL High 8.0 - 22.0 mg/dL AH ADM SS Urea nitrogen/Creatinine [Mass ratio] 19.5 ratio Normal 10.0 - 22.0 ratio AH ADM SS WBC (Bld) [#/Vol] 11.8 103/mcL High 4.5 - 10.8 10^3/mcL AH Workflow SS Albumin BCP dye [Mass/Vol] 3.0 G/dL Low 3.2 - 4.8 G/dL AH ADM SS Albumin/Globulin [Mass ratio] 1.1 {ratio} Normal 0.9 - 1.6 ratio AH ADM SS ALP [Catalytic activity/Vol] 121 U/L Normal 38 - 126 U/L AH ADM SS ALT No additional P-5'-P [Catalytic activity/Vol] 458 U/L High 10 - 49 U/L AH ADM SS AST [Catalytic activity/Vol] 853 U/L High 8 - 34 U/L AH ADM SS Basophils (Bld) [#/Vol] 0.0 103/mcL Normal 0.0 - 0.3 10^3/mcL Workflow SS Basophils/100 WBC (Bld) 0.3 % Normal 0.0 - 2.5 % AH Workflow SS Bilirubin [Mass/Vol] 1.00 mg/dL Normal 0.20 - 1.20 mg/dL AH ADM SS Comment on above: Interpretive Data: U se of this assay is not recommended for patients undergoing treatment with eltrombopag due to the potential for falsely elevated results. Calcium [Mass/Vol] 7.9 mg/dL Low 8.7 - 10. 4 mg/dL AH ADM SS Chloride [Moles/Vol] 105 mmol/L Normal 98 - 110 mEq/L AH ADM SS CO2 [Moles/Vol] 24 mmol/L Normal 22 - 32 mEq/L AH ADM SS Creatinine [Mass/Vol] 1.20 mg/dL Normal 0.50 - 1.20 mg/dL AH ADM SS Comment on above: Interpretive Data: T esting performed on [email or web address] analyzer using enzymatic creatinine methodology. Electrolyte Balance 9.0 mEq/L Normal 4.0 - 15 .0 mEq/L AH ADM SS Eosinophils (Bld) [#/Vol] 0.1 103/mcL Normal 0.0 - 0.7 10^3/mcL Workflow SS Eosinophils/100 WBC (Bld) 0.4 % Normal 0.0 - 6.0 % Workflow SS Erythrocyte distribution width (RBC) [Ratio] 13.6 % Normal 11.5 - 15.5 % Workflow SS Estimated Glomerular Filtration Rate 49 ml/min/1.73sqm Invalid Interpretation Code Chemistry S Comment on above: Interpretive Data: Stages of Chronic Kidney Disease (CKD) Stage Description eGFR(ml/min/1.73 sq.m.) CKD 1 Normal kidney function or >=90 normal kindney function with possible kidney damage (ex. Proteinuria) CKD 2 Kidney damage with mild loss 60-89 of kidney function CKD 3a Mild to moderate loss of kidney 45-59 function CKD 3b Moderate to severe loss of 30-44 of kindey function CKD 4 Severe loss of kidney function 15-29 CKD 5 Kidney failure <15 Note: (go live 2024) the eGFR calculation was updated to the 2020 CKD-EPI creatinine equation without a race factor to calculate the eGFR results. Fibrinogen 377 mg/dL Normal 250 - 560 mg/dL [employer] SS Comment on above: Result Comment: Spec imen hemolyzed. Results may be affected. Globulin 2.8 G/dL Normal 2.5 - 4.2 G/dL ADM SS Glucose [Mass/Vol] 303 mg/dL High 82 - 115 mg/dL ADM SS Hematocrit (Bld) [Volume fraction] 50.0 % High 34.0 - 46.0 % Workflow SS Hemoglobin (Bld) [Mass/Vol] 16.8 G/dL High 12.0 - 16.0 G/dL Workflow SS Lymphocytes (Bld) [#/Vol] 2.2 103/mcL Normal 0.9 - 4.3 10^3/mcL Workflow SS Lymphocytes/100 WBC (Bld) 15.1 % Low 20.0 - 40.0 % Workflow SS MCH (RBC) [Entitic mass] 30.1 pg Normal 27.0 - 33.0 pg Workflow SS MCHC 33.5 G/dL Normal 32.0 - 36.0 G/dL Workflow SS MCV (RBC) [Entitic vol] 89.8 fL Normal 80.0 - 99.0 fL Workflow SS Monocytes (Bld) [#/Vol] 0.4 103/mcL Normal 0.1 - 1.4 10^3/mcL Workflow SS Monocytes/100 WBC (Bld) 2.9 % Normal 2.0 - 13.0 % Workflow SS Neutrophils (Bld) [#/Vol] 11.5 103/mcL High 2.3 - 8.1 10^3/mcL Workflow SS Neutrophils/100 WBC (Bld) 81.3 % High 50.0 - 75.0 % Workflow SS Platelet mean volume (Bld) [Entitic vol] 8.7 fL Normal 6.6 - 10.5 fL Workflow SS Platelets (Bld) [#/Vol] 331 103/mcL Normal 150 - 450 10^3/mcL Workflow SS Potassium [Moles/Vol] 4.0 mmol/L Normal 3.5 - 5.0 mEq/L ADM SS Comment on above: Result Comment: Spec imen slightly hemolyzed. Protein [Mass/Vol] 5.8 G/dL Normal 5.7 - 8.2 G/dL ADM SS PT Coag (PPP) [Time] 17.4 s High 9.0 - 1 4.4 seconds [facility] SS Comment on above: Result Comment: Spec imen hemolyzed. Results may be affected. Interpretive Data: E ffective 09/23/07, Protime results may be affected by some antibiotics (i.e. Ciprofloxacin, Azithromycin, Bactrim) which may potentiate the action of oral anticoagulants, with further increases in Protime/INR. PT International Ratio 1.5 ratio Invalid Interpretation Code [facility] SS Comment on above: Result Comment: Spec imen hemolyzed. Results may be affected. Interpretive Data: T [employer]ura [employer] (CHEST, 1992, [id number]) recommended therapeutic range for oral anticoagulant therapy is: LOW RISK: Prophylaxis of venous thrombosis INR: 2.0-3.0 Treatment of pulmonary embolism 2.0-3.0 Prevention of systemic embolism 2.0-3.0 HIGH RISK: Mechanical prosthetic valves 2.5-3.5 RBC (Bld) [#/Vol] 5.57 106/mcL High 4.10 - 5.3 0 10^6/mcL Workflow SS Sodium [Moles/Vol] 138 mmol/L Normal 136 - 145 mEq/L ADM SS Troponin I.cardiac DL <= 0.01 ng/mL [Mass/Vol] ng/L High 0 - 34 ng/L AH ADM SS Comment on above: Interpretive Data: High Sensitive Troponin I Reference Ranges: Female: 0-34 ng/L Male: 0-54 ng/L Testing performed on [employer] analyzer using direct chemiluminescent technology. Urea nitrogen [Mass/Vol] 23.0 mg/dL High 8.0 - 22.0 mg/dL ADM SS Urea nitrogen/Creatinine [Mass ratio] 19.2 ratio Normal 10.0 - 22.0 ratio AH ADM SS WBC (Bld) [#/Vol] 14.2 103/mcL High 4.5 - 10.8 10^3/mcL Workflow SS LABORATORYOrdered By: Renee Terry on 09-10-2024 CO2 [Moles/Vol] 28.2 mmol/L Normal 22.0 - 30.0 mmol/L AH Main Rapid Comm SS HCO3 (Bld) [Moles/Vol] 25.8 mmol/L Normal 21.0 - 29.0 mmol/L [facility] SS Oxygen (Bld) [Partial pressure] 38.4 mm[Hg] Invalid Interpretation Code 74.0 - 108.0 mm Hg AH [facility] SS pCO2 77.5 mm[Hg] Invalid Interpretation Code 32.0 - 46.0 mm Hg [facility] SS pH (Bld) 7.141 [pH] Invalid Interpretation Code 7.380 - 7.460 [facility] SS Sodium [Moles/Vol] -5.6000 mmol/L Invalid Interpretation Code AH Main [facility] SS LABORATORYOrdered By: iMke Travis on 09-10-2024 aPTT Coag (Bld) [Time] s Invalid Interpretation Code 25.0 - 35.0 seconds Coagulation S Comment on above: Result Comment: Spec imen hemolyzed. Results may be affected. Interpretive Data: F or Heparin anticoagulation therapy, the recommended therapeutic range is: 54-77 seconds (APTT Correlation with Anti-Xa therapeutic range of 0.3-0.7 units/ml). PLEASE REFERENCE THE PHARMACY PROTOCOL FOR DOSING. LABORATORYOrdered By: Roderick Lu on 09-10-2024 CO2 [Moles/Vol] 24.7 mmol/L Normal 22.0 - 30.0 mmol/L Main [facility] SS HCO3 (Bld) [Moles/Vol] 22.2 mmol/L Normal 21.0 - 29.0 mmol/L AH Main Rapid [facility] SS Oxygen (Bld) [Partial pressure] 47.6 mm[Hg] Invalid Interpretation Code 74.0 - 108.0 mm Hg AH [facility] SS pCO2 80.8 mm[Hg] Invalid Interpretation Code 32.0 - 46.0 mm Hg AH Main [facility] SS pH (Bld) 7.057 [pH] Invalid Interpretation Code 7.380 - 7.460 [facility] SS Sodium [Moles/Vol] -10.57156 mmol/L Invalid Interpretation Code Main Rapid Comm SS LACon 09-10-2024 Lactic Acid Lvl 4.2 mmol/L High 0.5-2.2 [facility] Comment on above: Performed By: #### A BSGEL, ABOGEL #### [place] [address] Performed By: #### H BSAG, HBSAB #### [place] [address] MGon 09-10-2024 Magnesium [Mass/Vol] 1.8 mg/dL Normal 1.6-2.4 [facility] Comment on above: Performed By: #### G FR, MG, CMP #### [place] [address] Performed By: #### B FPR, GLUBF, BFCT, PROBF #### [place] [address] PROon 09-10-2024 INR Coag (PPP) [Relative time] 1.5 {INR} Normal [facility] Comment on above: Result Comment: Spec imen hemolyzed. Results may be affected. The [employer] (CHEST, 1992, 102:312S-25S) recommended therapeutic range for oral anticoagulant therapy is: LOW RISK: Prophylaxis of venous thrombosis INR: 2.0-3.0 Treatment of pulmonary embolism 2.0-3.0 Prevention of systemic embolism 2.0-3.0 HIGH RISK: Mechanical prosthetic valves 2.5-3.5 Performed By: #### A BSGEL, ABOGEL #### [place] [address] Performed By: #### A TALITA ABSGEL #### [place] [id number] PT Coag (PPP) [Time] 17.4 s High 9.0-14.4 [facility] Comment on above: Result Comment: Spec imen hemolyzed. Results may be affected. Effective 09/23/07, Protime results may be affected by some antibiotics (i.e. Ciprofloxacin, Azithromycin, Bactrim) which may potentiate the action of oral anticoagulants, with further increases in Protime/INR. Performed By: #### A LANDRY MAYBERRY #### [place] [address] Performed By: #### A CHUCK SANON #### [place] [address] TROPHSon 09-10-2024 High Sensitivity Troponin I >[address] MAIN Comment on above: Result Comment: High Sensitive Troponin I Reference Ranges: Female: 0-34 ng/L Male: 0-54 ng/L Testing performed on [employer] IM analyzer using direct chemiluminescent technology. Performed By: #### A LANDRY MAYBERRY #### [place] [address] Performed By: #### T ROP #### [place] [address] High Sensitivity Troponin I >[address] MAIN Comment on above: Result Comment: High Sensitive Troponin I Reference Ranges: Female: 0-34 ng/L Male: 0-54 ng/L Testing performed on [employer] IM analyzer using direct chemiluminescent technology. Performed By: #### A LANDRY MAYBERRY #### [place] [address] Performed By: #### A CHUCK SANON #### [place] [address] TROPONINon 09-10-2024 HS TROPONIN 78.5 pg/mL Critically high 0.0 - 51.4 [facility] Comment on above: Result Comment: { CA LLED TO VIVIAN PIERCE BY SHANTELLE 181 { READ BACK BY VIVIAN PIERCE BY SHANTELLE 181 Performed By: #### 2 [id number] #### [facility],[address] [place] [address] TSHon 09-10-2024 TSH 2.986 mIU/mL Normal 0.550-4.780 [facility] Comment on above: Performed By: #### A BSGEL, ABOGEL #### [facility] [address] [place] [address] Performed By: #### H BSAG, HBSAB #### [facility] [address] [place] [address] XR CHEST 1 VIEWon 09-10-2024 XR CHEST 1 VIEW ORIGINAL EXAMINATION: ONE XRAY VIEW OF THE CHEST09/10/2024 11:22 pm COMPARISON: 09/10/2024, 9:12 p.m. HISTORY: ORDERING SYSTEM PROVIDED HISTORY: Reason for Exam: ECMO FINDINGS: Stable positioning of endotracheal tube, enteric tube, cardiac Impella device and lower extremity approach Wyatt-Lidia catheter. Another wide bore catheter is partially visualized in upper abdomen, tip projecting over expected location of upper IVC. Worsening of bilateral lung opacification. No other significant interval change. IMPRESSION: Support structures as above. Worsening of bilateral lung opacification. I have personally reviewed the images of this examination and agree with the resident's findings and interpretation. Interpreted by: Roger Weber Preliminary Report By: Francisco Grier Electronically signed By Roger Weber Dictated Date: 09/10/2024 11:25:51 PM Prelim Date: 09/10/2024 11:29:40 PM Sign Date: 09/10/2024 11:38:48 PM Ordering Provider: DELVIS GUNDERSON Interpreted by: Roger Weber Preliminary Report By: Francisco Grier Electronically signed By Roger Weber Dictated Date: 09/10/2024 11:25:51 PM Prelim Date: 09/10/2024 11:29:40 PM Sign Date: 09/10/2024 11:38:48 PM Ordering Provider: DELVIS GUNDERSON [facility] MAIN XR CHEST 1 VIEW ORIGINAL EXAMINATION: ONE XRAY VIEW OF THE CHEST 09/10/2024 9:18 pm COMPARISON: None. HISTORY: ORDERING SYSTEM PROVIDED HISTORY: Reason for Exam: progressive hypoxia FINDINGS: Endotracheal tube distal tip projects 2.8 cm above the bao. Enteric tube courses below the diaphragm with distal tip projecting over the proximal stomach. Impella device. Inferior approach catheter distal tip projects over the expected location of the left lower lobar pulmonary artery. Generalized opacities throughout the lungs, particularly in the perihilar regions. Left costophrenic angle is sharp. Right costophrenic angle is obscured. No radiographic pneumothorax. Degenerative changes of the spine. IMPRESSION: Lines and tubes as above. Opacities in the lungs, nonspecific although correlate for edema or infection and follow-up to resolution. Interpreted by: Roger Weber Preliminary Report By: Roger Weber Electronically signed By Roger Weber Dictated Date: 09/10/2024 9:22:55 PM Prelim Date: 09/10/2024 9:25:21 PM Sign Date: 09/10/2024 9:25:21 PM Ordering Provider: ADE ALVES Interpreted by: Roger Weber Preliminary Report By: Roger Weber Electronically signed By Roger Weber Dictated Date: 09/10/2024 9:22:55 PM Prelim Date: 09/10/2024 9:25:21 PM Sign Date: 09/10/2024 9:25:21 PM Ordering Provider: ADE ALVES [facility] METABOLIC PANE [facility] 04-11-2024 Albumin [Mass/Vol] 4.2 g/dL Normal 3.6-5.1 [facility] Comment on above: Performed By: #### 7 600, [id number] #### [facility] [address], [address] [place] [address] Ship Scraper: Willie Tovar MD Albumin/Globulin [Mass ratio] 1.7 {ratio} Normal 1.0-2.5 [facility] Comment on above: Performed By: #### 7 600, 80884 #### [facility] [place] [address] Ship Scraper: Willie Tovar MD ALP [Catalytic activity/Vol] 83 U/L Normal 37-153 [facility] Comment on above: Performed By: #### 7 600, 60748 #### [facility] [address], [address] [place] [address] Ship Scraper: Willie Tovar MD ALT [Catalytic activity/Vol] 14 U/L Normal 6-29 [facility] Comment on above: Performed By: #### 7 600, 33672 #### [facility] [place] [address] Ship Scraper: Willie Tovar MD AST [Catalytic activity/Vol] 14 U/L Normal 10-35 [facility] Comment on above: Performed By: #### 7 600, 33570 #### [facility] of [place] [address] Ship Scraper: Willie Tovar MD Bilirubin [Mass/Vol] 1.2 mg/dL Normal 0.2-1.2 [facility] Comment on above: Performed By: #### 7 600, 64241 #### [facility] [place] [address] Ship Scraper: Willie Tovar MD BUN/CREATININE RATIO SEE NOTE: Normal 6-22 [facility] Comment on above: Result Comment: Not Reported: BUN and Creatinine are within reference range. Performed By: #### 7 600, 77450 #### [facility] [place] [address] Ship Scraper: Willie Tovar MD Calcium [Mass/Vol] 9.5 mg/dL Normal 8.6-10.4 [facility] Comment on above: Performed By: #### 7 600, 11364 #### [facility] [place] [address] Ship Scraper: Willie Tovar MD Chloride [Moles/Vol] 105 mmol/L Normal 98-110 [facility] Comment on above: Performed By: #### 7 600, 42596 #### [facility] [place] [address] Ship Scraper: Willie Tovar MD CO2 [Moles/Vol] 29 mmol/L Normal 20-32 [facility] Comment on above: Performed By: #### 7 600, 35622 #### [facility] [address], [address] [place] [address] Ship Scraper: Willie Tovar MD Creatinine [Mass/Vol] 0.76 mg/dL Normal 0.50-1.[address] [facility] Comment on above: Performed By: #### 7 600, 83595 #### [facility] [address], [address] [place] [address] Ship Scraper: Willie Tovar MD GFR/1.73 sq M.predicted among non-blacks MDRD (S/P/Bld) [Vol rate/Area] 85 mL/min/{1.73_m2} Normal > OR = 60 [facility] Comment on above: Performed By: #### 7 600, 10811 #### [facility] [address], [address] [place] [address] Ship Scraper: Willie Tovar MD Globulin (S) [Mass/Vol] 2.5 g/dL Normal 1.9-3.7 [facility] Comment on above: Performed By: #### 7 600, 58552 #### [facility] [address], [address] [place] [address] Ship Scraper: Willie Tovar MD Glucose [Mass/Vol] 108 mg/dL High 65-99 [facility] Comment on above: Result Comment: Fasting reference interval For someone without known diabetes, a glucose value between 100 and 125 mg/dL is consistent with prediabetes and should be confirmed with a follow-up test. Performed By: #### 7 600, 53833 #### [facility] [address], [address] [place] [address] Ship Scraper: Willie Tovar MD Potassium [Moles/Vol] 4.4 mmol/L Normal 3.5-5.[address] [facility] Comment on above: Performed By: #### 7 600, 26241 #### [facility] [address], [address] [place] [address] Ship Scraper: Willie Tovar MD Protein [Mass/Vol] 6.7 g/dL Normal 6.1-8.1 [facility] Comment on above: Performed By: #### 7 600, 79606 #### [facility] [address], [address] [place] [address] Ship Scraper: Willie Tovar MD Sodium [Moles/Vol] 142 mmol/L Normal 135-146 [facility] Comment on above: Performed By: #### 7 600, 47166 #### [facility] [address], [address] [place] [address] Ship Scraper: Willie Tovar MD Urea nitrogen [Mass/Vol] 14 mg/dL Normal 7-25 [facility] Comment on above: Performed By: #### 7 600, 11479 #### [facility] [address], [address] [place] [address] Ship Scraper: Willie Tovar MD LIPID PANEL, STANDARD 02-0 Cholesterol [Mass/Vol] 194 mg/dL Normal <200 [facility] Comment on above: Performed By: #### 7 600, 89161 #### [facility] of [address], [address] [place] [address] Ship Scraper: Willie Tovar MD Cholesterol in HDL [Mass/Vol] 60 mg/dL Normal > OR = 50 [facility] Comment on above: Performed By: #### 7 600, 86538 #### [facility] [place] [address] Ship Scraper: Willie Tovar MD Cholesterol in LDL [Mass/Vol] 109 mg/dL High [facility] Comment on above: Result Comment: Refe rence range: <100 Desirable range <100 mg/dL for primary prevention; <70 mg/dL for patients with CHD or diabetic patients with > or = 2 CHD risk factors. LDL-C is now calculated using the Christine calculation, which is a validated novel method providing better accuracy than the Friedewald equation in the estimation of LDL-C. Esdras HERNANDEZ et al. JAMES. 2013;310(19): 6305-4829 (http://education.[employer]/faq/VYS641) Performed By: #### 7 600, 45845 #### [facility] [address], [address] [place] [address] Ship Scraper: Willie Tovar MD Cholesterol.total/Cho lesterol in HDL [Mass ratio] 3.2 {ratio} Normal <5.0 [facility] Comment on above: Performed By: #### 7 600, 66732 #### [facility] [address], [address] [place] [address] Ship Scraper: Willie Tovar MD NON HDL CHOLESTEROL 134 mg/dL (calc) High <130 [facility] Comment on above: Result Comment: For patients with diabetes plus 1 major ASCVD risk factor, treating to a non-HDL-C goal of <100 mg/dL (LDL-C of <70 mg/dL) is considered a therapeutic option. Performed By: #### 7 600, 02617 #### [facility] [address], [address] [place] [address] Ship Scraper: Willie Tovar MD Triglyceride [Mass/Vol] 136 mg/dL Normal <150 [facility] Comment on above: Performed By: #### 7 600, 57851 #### [facility] [place] [address] Ship Scraper: Willie Tovar MD Laboratory - Chemistry and C hemistry - challengeon 04-10-2024 Albumin [Mass/Vol] 4.2 g/dL Normal 3.6 - 5.1 g/dL [facility], [facility] Albumin/Globulin [Mass ratio] 1.7 {ratio} Normal 1.0 - 2.5 [facility], [facility].; [facility], [facility]. ALP [Catalytic activity/Vol] 83 U/L Normal 37 - 153 U/L [facility], [facility].; [facility], [facility]. ALT [Catalytic activity/Vol] 14 U/L Normal 6 - 29 U/L [facility], [facility].; [facility], [facility]. AST [Catalytic activity/Vol] 14 U/L Normal 10 - 35 U/L [facility], [facility].; [facility], [facility]. Bilirubin [Mass/Vol] 1.2 mg/dL Normal 0.2 - 1 .2 mg/dL [facility], [facility].; [facility], [facility]. Calcium [Mass/Vol] 9.5 mg/dL Normal 8.6 - 10. 4 mg/dL [facility], [facility].; [facility], [facility]. Chloride [Moles/Vol] 105 mmol/L Normal 98 - 11 0 mmol/L [facility], [facility].; [facility], [facility]. Cholesterol [Mass/Vol] 194 mg/dL Normal [facility], [facility].; [facility], [facility]. Cholesterol in HDL [Mass/Vol] 60 mg/dL Normal [facility], [facility].; [facility], [facility]. Cholesterol in LDL [Mass/Vol] 109 mg/dL Abnormal [facility].; [facility], [facility]. CO2 [Moles/Vol] 29 mmol/L Normal 20 - 32 mmol/L [facility], [facility].; [facility], [facility]. Creatinine [Mass/Vol] 0.76 mg/dL Normal 0.50 - 1.05 mg/dL [facility], [facility].; [facility], [facility]. GFR/1.73 sq M.predicted among non-blacks MDRD (S/P/Bld) [Vol rate/Area] 85 mL/min/{1.73_m2} Normal [facility], [facility].; [facility] Glucose [Mass/Vol] 108 mg/dL Abnormal 65 - 99 mg/dL [facility].; [facility], [facility]. Potassium [Moles/Vol] 4.4 mmol/L Normal 3.5 - 5.3 mmol/L [facility], [facility].; [facility] Protein [Mass/Vol] 6.7 g/dL Normal 6.1 - 8.1 g/dL [facility], [facility].; [facility] Sodium [Moles/Vol] 142 mmol/L Normal 135 - 146 mmol/L [facility], [facility].; [facility] Triglyceride [Mass/Vol] 136 mg/dL Normal [facility], [facility].; [facility], [facility]. Urea nitrogen [Mass/Vol] 14 mg/dL Normal 7 - 25 mg/dL [facility].; [facility]. No Panel Informationon 04-10 BUN/CREATININE RATIO SEE NOTE: Normal 6 - 22 [facility] [place] [facility] CHOL/HDLC RATIO 3.2 Normal [facility].; [place] [facility] GLOBULIN 2.5 Normal 1.9 - 3.7 [facility] [place] [facility], [employer]. NON HDL CHOLESTEROL 134 Abnormal [facility].; [facility], [employer]. Vital Signs Date Time Vital Sign Value Performing Clinician Facility 10-18-2024 05:05-0400 Body temperature 37.0 degrees Celsius [facility] Comment on above: Performed By: #### [id number] ####AYDEE Bruce ([id number])[facility] ([facility])[address] [place] [address] 09-16-2024 22:23-0400 Body temperature 37 [facility] Comment on above: NOTE: Patient Results are Not Corrected for Temperature 09-16-2024 22:23-0400 SaO2% (BldA) [Mass fraction] 99 % [facility] 09-10-2024 23:47-0400 SaO2% (BldA) [Mass fraction] 99.2 % MEÑO URBINA MD [facility] 09-10-2024 21:05-0400 SaO2% (BldA) [Mass fraction] 63.4 % MEÑO URBINA MD [facility] 09-10-2024 19:35-0400 SaO2% (BldA) [Mass fraction] 70.7 % MEÑO URBINA MD [facility] 04-23-2024 14:35-0500 Body height 161.29 cm Magdy Wood MD Work Phone: [employer]. 04-23-2024 14:35-0500 Body mass index (BMI) [Ratio] 42.37 kg/m2 Magdy Wood MD Work Phone: [facility] [employer] 04-23-2024 14:35-0500 Body surface area Derived from formula 2.11 m2 Magdy Wood MD Work Phone: [facility] [employer]. 04-23-2024 14:35-0500 Body weight 110.22 kg Magdy Wood MD Work Phone: [place] [employer]. 04-23-2024 14:35-0500 Diastolic blood pressure 94 mm[Hg] Magdy Wood MD Work Phone: [place] [facility] [employer]. Comment on above: Patient Position: Sitting; Cuff Location : Left Arm; Cuff Size: Standard 04-23-2024 14:35-0500 Heart rate 94 /min Magdy Wood MD Work Phone: [place] [facility] [employer]. Comment on above: Pattern: Regular 04-23-2024 14:35-0500 Systolic blood pressure 150 mm[Hg] Magdy Wood MD Work Phone: [place] [facility] [employer]. Comment on above: Patient Position: Sitting; Cuff Location : Left Arm; Cuff Size: Standard 02-26-2022 10:57-0500 Body height 161.29 cm DayannaEmily Wolf VP [employer] [facility], [facility].; [employer]. 02-26-2022 10:57-0500 Body mass index (BMI) [Ratio] 39.75 kg/m2 [facility] Maryann [facility], [facility].; [employer]. 02-26-2022 10:57-0500 Body surface area Derived from formula 2.06 m2 [facility] Maryann [employer] [facility], [facility].; [employer]. 02-26-2022 10:57-0500 Body temperature 98.6 [degF] DayannaEmily Wolf [employer] [place] [facility] [employer]. Comment on above: Method: Tympanic 02-26-2022 10:57-0500 Body weight 103.42 kg Lesley Wolf LPN [facility], [employer]. 02-26-2022 10:57-0500 Diastolic blood pressure 86 mm[Hg] Lesley Wolf [employer] [facility] [employer]. Comment on above: Patient Position: Sitting; Cuff Location : Left Arm; Cuff Size: Large 02-26-2022 10:57-0500 Heart rate 92 /min Lesley Wolf [facility], [employer].; [employer]. Comment on above: Pattern: Regular 02-26-2022 10:57-0500 Inhaled oxygen concentration 21 % Dayanna Maryann [facility], [employer]. Comment on above: Room air 02-26-2022 10:57-0500 SaO2% (BldA) [Mass fraction] 96 % Lesley Wolf [facility], [employer].; [employer]. 02-26-2022 10:57-0500 Systolic blood pressure 171 mm[Hg] Lesley Wolf [facility], [employer].; [employer]. Comment on above: Patient Position: Sitting; Cuff Location : Left Arm; Cuff Size: Large 03-05-2017 11:15-0500 Body height 161.29 cm Lesley Wolf [facility] [employer] [facility]. 03-05-2017 11:15-0500 Body mass index (BMI) [Ratio] 35.74 kg/m2 Dayanna Maryann [facility], [employer].; [employer] 03-05-2017 11:15-0500 Body surface area Derived from formula 1.97 m2 [facility] Maryann [facility], [employer].; [employer]. 03-05-2017 11:15-0500 Body temperature 98.3 [degF] Dayanna Mary[facility] [employer]. Comment on above: Method: Tympanic 03-05-2017 11:15-0500 Body weight 92.99 kg Lesley Wolf LPN [facility] [employer] 03-05-2017 11:15-0500 Diastolic blood pressure 92 mm[Hg] Lesley Wolf LPN [facility] [employer] Comment on above: Patient Position: Sitting; Cuff Location : Left Arm; Cuff Size: Large 03-05-2017 11:15-0500 Heart rate 97 /min Lesley Wolf [facility] [employer] Comment on above: Pattern: Regular 03-05-2017 11:15-0500 Inhaled oxygen concentration 21 % Lesley Wolf [facility] [employer] Comment on above: Room air 03-05-2017 11:15-0500 SaO2% (BldA) [Mass fraction] 94 % Lesley Wolf [employer] [facility] [employer] 03-05-2017 11:15-0500 Systolic blood pressure 164 mm[Hg] Lesley Wolf LPN [facility] [employer] Comment on above: Patient Position: Sitting; Cuff Location : Left Arm; Cuff Size: Large 09-06-2015 10:44-0400 Body height 161.29 cm Lesley Wolf [employer] [facility] [employer] 09-06-2015 10:44-0400 Body mass index (BMI) [Ratio] 36.62 kg/m2 Lesley Wolf [facility] [employer] 09-06-2015 10:44-0400 Body surface area Derived from formula 1.99 m2 Dayanna Maryann [employer] [facility] [employer] 09-06-2015 10:44-0400 Body weight 95.26 kg Lesley Wolf [employer] [facility] [employer] 09-06-2015 10:44-0400 Diastolic blood pressure 73 mm[Hg] Dayanna Maryann [facility], [facility]. Comment on above: Patient Position: Sitting; Cuff Location : Left Arm; Cuff Size: Large 09-06-2015 10:44-0400 Heart rate 82 /min Lesley Wolf [facility] Comment on above: Pattern: Regular 09-06-2015 10:44-0400 Systolic blood pressure 178 mm[Hg] Lesley Wolf [facility], [facility]. Comment on above: Patient Position: Sitting; Cuff Location : Left Arm; Cuff Size: Large Encounters Encounter Date Encounter Type Care Provider Facility Start: 11-26-2024 ambulatory Yamilet Zhao ty:[facility] Start: 10-28-2024 End: 10-28-2024 ambulatory TRINH BANEGAS MD Facility:A Start: 10-27-2024 End: 10-27-2024 ambulatory TRINH BANEGAS MD Facility:A Start: 10-22-2024 End: 11-24-2024 ambulatory NORA HENDERSON MD Facility:A Start: 09-16-2024 End: 09-16-2024 Subsequent hospital visit by physician Alaina Espino [facility] [place] Comment on above: Arrived Start: 09-16-2024 End: 09-16-2024 Evaluation and management of inpatient UMU S LAPPING [facility] Start: 09-11-2024 End: 09-11-2024 ambulatory UNKNOWN PROVIDER Facility:[facility] Start: 09-11-2024 End: 10-21-2024 Evaluation and management of inpatient GENERIC PROVIDER SCANNING [facility] Start: 09-11-2024 End: 09-11-2024 ambulatory UNKNOWN PROVIDER Facility:[facility] Start: 09-10-2024 End: 09-11-2024 Evaluation and management of inpatient MEÑO URBINA MD [facility] Start: 09-10-2024 End: 09-10-2024 Emergency department patient visit MARCO VARELA [facility] Start: 04-23-2024 Review Magdy Wood MD Work Phone: [employer] Start: 04-23-2024 End: 04-23-2024 Periodic preventive med est patient 65yrs& older Magdy Wood MD Work Phone: [facility] [employer] Start: 04-23-2024 End: 04-23-2024 Patient encounter procedure Holli Son GARY [facility] [employer] Start: 04-23-2024 Review Magdy Wood MD Work Phone: [facility] [employer] Start: 04-22-2024 [facility] Start: 04-10-2024 End: 04-13-2024 Orders Magdy Wood MD Work Phone: [facility] [employer] Start: 02-17-2024 End: 02-18-2024 Orders Magdy Wood MD Work Phone: [employer] Start: 02-26-2022 End: 02-26-2022 Office outpatient visit 15 minutes Magdy Wood MD Work Phone: [employer] Start: 03-05-2017 End: 03-05-2017 Office outpatient visit 15 minutes Magdy Wood MD Work Phone: [employer] Start: 09-06-2015 End: 09-06-2015 Office outpatient visit 15 minutes Magdy Wood MD Work Phone: [employer] Patient encounter procedure Magdy Wood MD Work Phone: [employer]; [employer] Procedures Date Procedure Procedure Detail Performing Clinician Start: 09-16-2024 Chloride bld Interface Unspecifiedprovider Work Phone: Start: 09-16-2024 Coagulation time activated Interface Unspecifiedprovide r Work Phone: Start: 09-16-2024 End: 09-16-2024 Coagulation time activated Interface Unspecifiedprovide r Work Phone: Start: 07-09-2025 Echo transesophag r- t 2d w/prb img acquisj i&r Claudia Z Kvng ADMINISTRATIVE SERVICES DIRECTOR-SEA CAPTAIN Work Phone: Start: 09-11-2024 Lipid 1996 panel - Serum or Plasma [facility] Start: 04-23-2024 End: 04-23-2024 Adv care pln/ no alt dcsn mkr docd or refusal Magdy Wood MD Work Phone: Start: 04-23-2024 End: 04-23-2024 Depression screening Magdy Wood MD Work Phone: Start: 04-23-2024 End: 04-23-2024 Falls risk assessment documented Magdy Wood MD Work Phone: Start: 04-23-2024 End: 04-23-2024 Pos clin depres scrn f/u doc Magdy Wood MD Work Phone: Start: 04-23-2024 End: 04-23-2024 PPPS, subseq visit Magdy Wood MD Work Phone: Start: 04-23-2024 End: 04-23-2024 Pt falls assess docd w/o fall/injury past year Magdy Wood MD Work Phone: Start: 04-23-2024 End: 04-23-2024 Scr dep neg, no plan reqd Magdy Wood MD Work Phone: Start: 04-10-2024 End: 04-10-2024 Lab findings surveillance Holli Cline LPN Comment on above: 108 Start: 04-10-2024 End: 04-10-2024 Lipid panel Holli Cline LPN Comment on above: TC 194 HDL 60 LDL 10 9 TRI 136 Start: 03-05-2017 End: 03-05-2017 Body mass index documented Magdy Wood MD Work Phone: Plan of Treatment Date Care Activity Detail Author Start: 09-11-2029 Lipid panel Lipid Panel [facility] Start: 09-16-2025 Diabetes mellitus screening Diabetes Screening [facility] Start: 09-11-2025 Hemoglobin A1c measurement Diabetes: Hemoglobin A1C [facility] Start: 11-09-2024 Influenza vaccination Influenza Vaccine (#1) [facility] Start: 07-07-2024 COVID-19 Vaccine ( season) COVID-19 Vaccine ( season) [facility] Start: 04-23-2024 Oncology colorectal screening ari 10 dna markrs COLOGUARD COLON CANCER SCREENING USING STOOL DNA AT POINT OF CARE (50699) Start: 23-Apr-2024 Intent [facility].; [facility]. Start: 04-23-2024 Screening mammography bi 2-view breast inc cad Mammogram Bilateral Screening Digital w/CAD (60370) Start: 23-Apr-2024 Intent [employer] [employer] Start: 04-20-2024 Patient encounter procedure Medical; PHYSICAL - AWV [facility]. Start: 20-Apr-2024 14:00-05:00 MD Magdy Wood Appointment Request [employer] Start: 04-10-2024 Comprehensive metabolic panel CMP w/ GFR* (90755) Start: 10-Apr-2024 Request [facility] [employer] Start: 04-10-2024 Lipid panel LIPID PANEL ([id number]) Start: 10-Apr-2024 Request [facility] [employer] Start: 04-10-2024 Nursing evaluation of patient and report Medical; Nurse visit - AWV. Fasting labs SFB [facility]. Start: 10-Apr-2024 09:40-05:00 NURSE, FLOTHALIA Appointment Request [employer]. Start: 03-16-2022 Pneumococcal vaccination Pneumococcal Vaccine (2 of 2 - PCV) [facility] Start: 05-11-2021 Zoster Vaccines (2 of 2) Zoster Vaccines (2 of 2) [facility] Start: 2016 RSV High Risk: (Elderly (60+) or Population) (1 - Risk 60-74 years 1-dose series) RSV High Risk: (Elderly (60+) or Population) (1 - Risk 60-74 years 1-dose series) [facility] Start: 1996 Screening for malignant neoplasm of breast Mammogram [facility] Start: 01-11-1978 DTaP/Tdap/Td Vaccines (1 - Tdap) DTaP/Tdap/Td Vaccines (1 - Tdap) [facility] Start: 01-11-1974 Hepatitis C screening Hepatitis C Screening [facility] Start: 1956 Screening for malignant neoplasm of colon [facility] Start: 1956 Screening for osteoporosis Bone Density Scan [facility] Start: 1956 Thyroid stimulating hormone measurement TSH Level [facility] Start: 1956 Yearly Adult Physical Yearly Adult Physical [facility] Immunizations Immunization Date Immunization Notes Care Provider Fa cility 02-09-2024 influenza, injectabl e, quadrivalent, contains preservative Magdy Wood MD Work Phone: [facility] 02-09-2024 influenza virus vaccine, unspecified formulation [facility] Work Phone: Payers Date Payer Category Payer Unknown [id number] 2024 Unknown XX 2024 Self-pay [id number] 2022 Blue Cross Blue [facility] [id number] 2022 Unknown [id number] 2021 Medicare MEDICARE PART A AND B [id number] 2021 Medicare [id number] 1956 Unknown [id number] 1956 Unknown [id number] 1956 Unknown [id number] [id number] 1956 Unknown [id number] 1956 Unknown [id number] [id number] 1956 Unknown [id number] [id number] 1956 Unknown [id number] Unknown [id number] [id number] Unknown [id number] [id number] Unknown [id number] [id number] Unknown Social History Date Type Detail Facility Tobacco Use: Tobacco Use: ; N ever smoker. [facility] Female [facility] Never smoked tobacco [facility] Work Phone: Tobacco smoking status [facility] Start: 09-10-2024 Sex Female (finding) [facility] Tobacco smoking stat [facility] Tobacco smoking consumption unknown [facility] Work Phone: Start: 09-12-2024 History of Social function [facility] Start: 09-12-2024 B1300 Health Literacy [facility] How often do you nee d to have someone help you when you read instructions, pamphlets, or other written material from your doctor or pharmacy [SILS] Rarely [facility] Has the [employer], or [employer] threatened to shut off services in your home in past 12Mo No [facility] Work Phone: Within the last year , have you been afraid of your partner or ex-partner? Patient unable to answer [facility] Work Phone: Are you now , , , , never or living with a partner? [facility] Work Phone: How often to you hav e a drink containing alcohol? Monthly or less [facility] Work Phone: How many standard drinks containing alcohol do you have on a typical day? 1 or 2 [facility] Work Phone: How often do you hav e 6 or more drinks on 1 occasion? Never [facility] Work Phone: (I/We) worried jacob er (my/our) food would run out before (I/we) got money to buy more. Never true [facility] Work Phone: Start: 1955 Sex assigned at Not on file [facility] Work Phone: Start: 09-12-2024 Gender identity Identifies as female gender (finding) [facility] Work Phone: Goals Date Patient Goal Desired Activity /State Personal health goal Personal health goal Clinical Notes 09-10-2024 to 11-02-2024 Note Date & Type Note Facility 11-02-2024 Note . MICRO - Microbiology PROCEDURE: Culture Respiratory with Gram Stain [^1 *1] SOURCE: Tracheal Aspirate BODY SITE: COLLECTED DATE/TIME: 10/30/2024 12:20 EDT RECEIVED DATE/TIME: 10/30/2024 12:27 EDT START DATE/TIME: 10/30/2024 12:27 EDT FREE TEXT SOURCE: AMENDED REPORTS Amended Report [] Verified Date/Time/Personnel: 11/02/2024 09:10 EDT Light Methicillin-Resistant Staphylococcus aureus This staphylococci does not demonstrate inducible clindamycin resistance in vitro. Light Serratia marcescens Normal respiratory mary absent. FINAL REPORTS Final Report [] Verified Date/Time/Personnel: 11/02/2024 09:08 EDT Light Methicillin-Resistant Staphylococcus aureus Light Serratia marcescens Normal respiratory mary absent. PRELIMINARY REPORTS Preliminary Report [] Verified Date/Time/Personnel: 11/01/2024 08:30 EDT Light Staphylococcus aureus AYANNA to follow Light Serratia marcescens AYANNA to follow Normal respiratory mary absent. Preliminary Report [] Verified Date/Time/Personnel: 10/31/2024 08:45 EDT Culture results pending. STAINS GS [] Verified Date/Time/Personnel: 10/30/2024 13:31 EDT 4+ Polymorphonuclear cells 1+ Epithelial cells 3+ Gram Positive Cocci SUSCEPTIBILITY RESULTS Methicillin-Resistant Staphylococcus aureus Antibiotic AYANNA Dilut AYANNA Inter Ampicillin/ <=8/4 Resistant Sulbactam Azithromycin >4 Resistant Cefazolin <=8 Resistant Ceftaroline <=0.5 Susceptible Ceftriaxone 8 Resistant Ciprofloxacin >2 Resistant Clindamycin <=0.25 Susceptible Daptomycin <=0.5 Susceptible Erythromycin >4 Resistant ID Panel Not Not Applicable Applicable Levofloxacin 4 Intermediate Linezolid 2 Susceptible Oxacillin >2 Resistant MICRO - Microbiology SUSCEPTIBILITY RESULTS Methicillin-Resistant Staphylococcus aureus Antibiotic AYANNA Dilut AYANNA Inter Penicillin >2 Resistant Rifampin <=1 Susceptible Tetracycline <=4 Susceptible Trimethoprim/ <=0.5/9.5 Susceptible Sulfa Vancomycin 0.5 Susceptible Serratia marcescens Antibiotic AYANNA Dilut AYANNA Inter Amikacin <=16 Susceptible Amoxicillin/ >16/8 Resistant Clavulanate Ampicillin >16 Resistant Ampicillin/ >16/8 Resistant Sulbactam Aztreonam <=4 Susceptible Cefazolin >16 Resistant Ceftolozane/ <=2 Susceptible Tazobactam Ceftriaxone <=1 Susceptible Cefuroxime >16 Resistant Ciprofloxacin <=0.25 Susceptible Ertapenem <=0.5 Susceptible Gentamicin <=2 Susceptible ID Panel Not Not Applicable Applicable Levofloxacin <=0.5 Susceptible Meropenem <=1 Susceptible Minocycline <=4 Susceptible Moxifloxacin <=2 Susceptible Piperacillin/ <=8 Susceptible Tazobactam Tetracycline <=4 Susceptible Trimethoprim/ <=0.5/9.5 Susceptible Sulfa Interpretive Data ^1: Culture Respiratory with Gram Stain Requests for Mycoplasma, Legionella, Fungi, Mycobacteria, Chlamydia, and Viruses require ordering of those individual tests. Performing Locations *1: This test was performed at: [address], [address] [place] [address] 10-29-2024 Note ORIGINAL PROCEDURE: ULTRASOUND GUIDED RIGHT THORACENTESIS NON GARMENT SEWING MACHINE OPERATOR: Sheridan Odonnell PA-C CLINICAL STATEMENT: Pleural effusion ANESTHESIA: Local FLUID REMOVED: 775 cc FLUID COLOR: Yellow serous DISPOSITION OF FLUID: Discarded - sent with patient back to [facility] CATHETER/NEEDLE: 5 Fr centesis catheter The procedure, risks, limitations, and alternatives were discussed. All questions were answered. Written informed consent was obtained. Accompanying paperwork was verified for accuracy. Directed history and physical exam performed prior to the procedure. Medication reconciliation was performed by nursing personnel. Procedure was performed using a cap, sterile gloves, a large sterile sheet, hand hygiene and hospital-approved cutaneous antisepsis. Ultrasound survey demonstrates a RIGHT pleural effusion. 2% lidocaine was administered at the puncture site for local anesthesia. The centesis catheter needle was advanced into the effusion. After removal of the needle, the catheter was attached to vacuum bottles and removed once no additional fluid could be removed. COMPLICATIONS: None EBL: None PATIENT CONDITION: unchanged IMPRESSION: Successful ultrasound guided RIGHT thoracentesis. Procedure was performed by Sheridan Odonnell PA-C Interpreted by: Prakash Carlos MD Preliminary Report By: Sheridan Odonnell Electronically signed By Prakash Carlos MD Dictated Date: 10/27/2024 12:18:57 PM Prelim Date: 10/27/2024 12:20:04 PM Sign Date: 10/29/2024 5:35:00 PM Ordering Provider: [facility] 10-29-2024 Note ORIGINAL PROCEDURE: ULTRASOUND GUIDED LEFT THORACENTESIS NON GARMENT SEWING MACHINE OPERATOR: Sheridan Odonnell PA-C CLINICAL STATEMENT: Pleural effusion ANESTHESIA: Local FLUID REMOVED: 500 cc FLUID COLOR: Yellow serous DISPOSITION OF FLUID: Discarded - sent with patient back to [facility] CATHETER/NEEDLE: 5 Fr centesis catheter The procedure, risks, limitations, and alternatives were discussed. All questions were answered. Written informed consent was obtained. Accompanying paperwork was verified for accuracy. Directed history and physical exam performed prior to the procedure. Medication reconciliation was performed by nursing personnel. Procedure was performed using a cap, sterile gloves, a large sterile sheet, hand hygiene and hospital-approved cutaneous antisepsis. Ultrasound survey demonstrates a LEFT pleural effusion. 2% lidocaine was administered at the puncture site for local anesthesia. The centesis catheter needle was advanced into the effusion. After removal of the needle, the catheter was attached to vacuum bottles and removed once no additional fluid could be removed. COMPLICATIONS: None EBL: None PATIENT CONDITION: unchanged IMPRESSION: Successful ultrasound guided LEFT thoracentesis. Procedure was performed by Sheridan Odonnell PA-C Interpreted by: Prakash Carlos MD Preliminary Report By: Sheridan Odonnell Electronically signed By Prakash Carlos MD Dictated Date: 10/28/2024 12:47:42 PM Prelim Date: 10/28/2024 12:49:00 PM Sign Date: 10/29/2024 5:25:26 PM Ordering Provider: [facility] 09-11-2024 Cardiology Consul t note Referring Physician Dr Urbina History of Present Illness 69-year-old lady with no clear past medical history who had ibj-xq-pyxydewp cardiac arrest bystander CPR presented for STEMI. Patient was seen in the Quality Improvement Manager. Heart failure service was consulted given cardiogenic shock and hypoxia. Patient was intubated and on ventilator saturating around 80%. After discussion with Dr. Urbina in light of pulmonary edema and hypoxia as well as severe LV dysfunction we decided to proceed with an Impella CP placement. Impella positioning was confirmed on echocardiogram and there was no LV thrombus prior to placement. Review of Systems Unable to obtain patient is ventilated and sedated Physical Exam Vitals and Measurements RR: 24 (Total) RR: 0 (Spontaneous) No qualifying data available. General Appearance: Sedated Head: Normocephalic atraumatic EENT: Conjunctiva pink, sclera normal, Neck: No lumps or swellings noted Cardiac: S1, S2, no S3 or S4, Lungs: On ventilator Abdomen: Soft, nontender, nondistended bowel sounds positive Musculoskeletal: No joint swelling Extremities: Warm well perfused, no significant edema noted Neurological: Sedated Skin: No rashes Psychiatric: Sedated Lab Results 09/10 19:49 WBC: 14.2 H Hgb: 16.8 H Hct: 50.0 H Platelet: 331 Neutrophil %: 81.3 H Glucose Level: 303 H Sodium Level: 138 Potassium Level: 4.0 BUN: 23.0 H Creatinine Lvl (s): 1.20 Assessment/Plan I have personally reviewed available labs, pertinent cardiac and radiologic imaging, notes, medications, orders in the chart, telemetry, ECG. Acute systolic heart failure with cardiogenic shock in the setting of a LAD STEMI Obesity Hypertension Hypoxic and hypercapnic respiratory failure Dau-yp-epcvoefe cardiac arrest with unknown neurological status Proceeded with Impella CP. Start nitroprusside for afterload reduction given hypotension Systolic blood pressure is noted to be around 150-180 in the Quality Improvement Manager. Another 40 of IV Lasix given for total of 120 mg. If patient continues to be persistently hypoxic may need ECMO. Depending on patient's hemodynamics Impella may be weaned over the next 24 hours if afterload persistently stays high. Depending on patient's clinical course and neurological recovery may need to be considered for advanced heart failure therapies although hopefully given high afterload and room to optimize medications should be able to wean off mechanical circulatory support. Procedure/Surgical History No qualifying data available. Medications [facility] Aspirin, 81 mg, Oral, qDayM Colace, 100 mg= 1 cap(s), Oral, BID Colace, 100 mg= 1 cap(s), Oral, BID, PRN Dextrose 50% IV Push, 25 gram(s)= 50 mL, IV Push, AsDirected, PRN heparin 5000 units/mL injection, 5000 unit(s)= 1 mL, Subcutaneous, q8h magnesium sulfate for IV bolus, 2 gram(s)= 50 mL, IV Piggyback, AsDirected, PRN magnesium sulfate for IV bolus, 4 gram(s)= 100 mL, IV Piggyback, AsDirected, PRN magnesium sulfate for IV bolus melatonin, 3 mg= 1 tab(s), Oral, qHS, PRN Miralax Powder Packet, 17 gram(s)= 15 mL, Oral, qDay, PRN NO METFORMIN (Glucophage) X 48hrs-patient has received contrast, 1 EA, Miscellaneous, Unscheduled NS 1,000 mL, 1000 mL, Intravenous Pepcid, 20 mg= 1 tab(s), Oral, qHS Plavix, 75 mg= 1 tab(s), Oral, qDay potassium chloride, 20 mEq= 1 tab(s), Oral, AsDirected, PRN potassium chloride, 40 mEq= 2 tab(s), Oral, AsDirected, PRN potassium chloride, 40 mEq= 2 tab(s), Oral, AsDirected, PRN potassium chloride bolus, 20 mEq= 100 mL, IV Piggyback, AsDirected, PRN Protonix, 40 mg= 1 tab(s), Oral, qDayAC Tylenol, 650 mg= 2 tab(s), Oral, q4h, PRN Zofran, 4 mg= 2 mL, IV Push, q8h, PRN Home No active home medications Allergies No active allergies Immunizations No qualifying data available. Digitally Signed by AMERICA SOSA MD on 09/10/2024 08:38 PM [facility] 09-11-2024 Discharge summary Date of Service September 12, 2023 Discharge Diagnosis Shg-ey-ukxsgdmb cardiac arrest Cardiogenic shock secondary to acute anterior STEMI status post LAD stent status post Impella CP placement Acute systolic heart failure Persistent hypoxic respiratory failure despite 100% FiO2 and 20 of PEEP, initiated on [facility] ECMO Hospital Course Patient is a 69-year-old female with no known medical comorbidities who presented as a njc-ly-pddknedl cardiac arrest, downtime was 6 to 8 minutes and ROSC was achieved less than 10 minutes, emergently taken to Quality Improvement Manager for an anterior STEMI status post revascularization of her LAD. Patient was in cardiogenic shock in the setting of anterior STEMI status post Impella CP placement found to have severely low LV dysfunction on echocardiogram. When she returned to the CCU ICU, O2 saturation was persistently in the 70s despite being on 100% FiO2 on the ventilator. After multidisciplinary discussion with CT surgery, interventional cardiology, advanced heart failure team and cardiac critical care, decision was made to initiate [facility] ECMO and transfer to [facility] for further management. Family was updated of the above by critical care and HF team. Allergies No active allergies Consults Consult to Physician - Ordered -- 09/10/24 20:02:00 EDT, AMERICA SOSA MD, Routine, Cardiogenic shock Objective Vitals and Measurements T: 35.7 C (Axillary) TMIN: 35.7 C (Axillary) TMAX: 36.7 C (Oral) HR: 79 RR: 24 BP: 66/63 BP: 58/55(Line) SpO2: 92% HT: 160.2 cm WT: 111 kg BMI: 43.25 Weight Dosing Weight: 111 kg (09/10/24) Dosing Weight: 111 kg (09/10/24) General: Intubated sedated paralyzed Neck: Trachea midline, no JVD appreciated CVS: Regular rate and rhythm, no murmurs, or rubs, normal S1/S2 Lung: Decreased breath sounds Abdomen: Soft, non-tender, non-distended Extremities: Right femoral Impella CP, right femoral Wyatt-Lidia catheter Code Status Code Status - Ordered -- 09/10/24 20:02:00 EDT, Full Code, Constant Order Admission Date 09/10 Discharge Date 09/11 Follow Up Appointments No qualifying data available. Follow Up Labs/Studies Discharge Labs No Follow-up Labs Discharge Studies No Follow-up Studies Discharge Diet No qualifying data available. Discharge Activity No qualifying data available. Readmission Risk/Palliative Score No qualifying data available. Digitally Signed by ADE ALVES MD on 09/11/2024 01:07 AM Digitally Signed by MEÑO URBINA MD [facility] 09-11-2024 Procedure note Date of Service September 10, 2024 Procedure Name Left femorofemoral venoarterial ECMO cannulation. ECMO initiation. Insertion of distal perfusion cannula to the left superficial femoral artery. Consent Was obtained from the family. Indication A 69-year-old female with acute cardiogenic shock and flash pulmonary edema status post PCI to the LAD. On maximal ventilatory support, oxygen saturation in the 50s. Technique The left femoral region was prepped and draped in the usual sterile fashion. Under ultrasound guidance, access was obtained to the left femoral artery, left femoral vein, and left superficial femoral artery. 5000 units of heparin was given. Then using Seldinger technique, a 17 Amharic femoral arterial cannula was inserted, a 25 Amharic femoral venous cannula was inserted, and a 60 Amharic distal perfusion cannula was inserted afterwards. The arterial and venous limb was connected to the ECMO machine, and ECMO was initiated with good drainage and flow. The distal perfusion cannula was then connected to the ECMO circuit. Assessment/Plan Orders: Sodium Chloride 0.9% intravenous solution 250 mL(NS 250 mL 250 mL), 250 mL, Intravenous Sodium Chloride 0.9% intravenous solution 250 mL(NS 250 mL 250 mL), 250 mL, Intravenous Blood Transfusion RBC(Transfuse RBC), 09/10/24 23:23:00 EDT, 2, Hb < 7.5 + undergoing cardiac surgery, Consent Required Blood Transfusion RBC(Transfuse RBC), 09/10/24 23:55:00 EDT, 2, Active bleed w/ > 1500 mL EBL, Consent Required Crossmatch, 09/10/24 23:23:00 EDT, STAT (critical situation), Blood, Once, Stop date 09/10/24 23:23:00 EDT Sign Consent, 09/10/24 23:55:00 EDT, Once, consent for blood products Digitally Signed by DELVIS GUNDERSON MD on 09/11/2024 12:17 AM [facility] 09-11-2024 Cardiothoracic surgery Consult note Date of Service September 10, 2024 Reason for Consultation Acute cardiogenic shock with flash pulmonary edema for ECMO consideration History of Present Illness This is a 69-year-old female who had an fxh-pb-nhkqkwhv cardiac arrest with CPR for 8 minutes who was transferred as a STEMI alert and received a PCI to the LAD. The patient afterward deteriorated with flash pulmonary edema and acute cardiogenic shock. Conventional ventilatory settings did not improve her oxygenation on maximal support and ECMO is being considered. She had a right femoral Impella CP. When I came and evaluated the patient, she was in her ICU bed, intubated and sedated and being paralyzed. Her blood pressure was in the 100s over 50s, and her pulse ox was in the 50s on maximal ventilatory support. The patient lost her pulse and pressure a few times, and the decision was made amongst the cardiogenic shock team to place the patient on [facility] ECMO, with a plan to transfer to [facility] for further management. Review of Systems Unobtainable as the patient is intubated and sedated Physical Exam Vitals and Measurements T: 36.2 C (Axillary) TMIN: 35.9 C (Axillary) TMAX: 36.7 C (Oral) HR: 80 RR: 24 BP: 63/PALP BP: 86/62(Line) SpO2: 92% HT: 160.2 cm WT: 111 kg BMI: 43.25 Weight Dosing Weight: 111 kg (09/10/24) Dosing Weight: 111 kg (09/10/24) General: Intubated sedated paralyzed. The patient is morbidly obese as well. HEENT: pupils are equal and reactive; Neck: Trachea midline, no JVD appreciated. CVS: Regular rate and rhythm, no murmurs, or rubs, normal S1/S2. Lung: Bilateral crepitations and decreased breath sounds. Abdomen: Soft, non-tender, non-distended. Extremities: Right femoral Impella CP, right femoral Wyatt-Lidia catheter. Skin: Cold and clammy. Neuro: Unobtainable Psych: Unobtainable Lab Results 09/10 21:30 WBC: 11.8 H Hgb: 17.0 H Hct: 51.3 H Platelet: 324 Neutrophil %: 83.8 H Glucose Level: 258 H Sodium Level: 146 H Potassium Level: 3.5 BUN: 25.0 H Creatinine Lvl (s): 1.28 H 09/10 19:49 WBC: 14.2 H Hgb: 16.8 H Hct: 50.0 H Platelet: 331 Neutrophil %: 81.3 H Protime: 17.4 H PT International Ratio: 1.5 Glucose Level: 303 H Sodium Level: 138 Potassium Level: 4.0 BUN: 23.0 H Creatinine Lvl (s): 1.20 Imaging Results and Diagnostics Chest x-rays and echo as well as left heart catheterization was reviewed. Assessment/Plan Orders: Sodium Chloride 0.9% intravenous solution 250 mL(NS 250 mL 250 mL), 250 mL, Intravenous Sodium Chloride 0.9% intravenous solution 250 mL(NS 250 mL 250 mL), 250 mL, Intravenous Blood Transfusion RBC(Transfuse RBC), 09/10/24 23:23:00 EDT, 2, Hb < 7.5 + undergoing cardiac surgery, Consent Required Blood Transfusion RBC(Transfuse RBC), 09/10/24 23:55:00 EDT, 2, Active bleed w/ > 1500 mL EBL, Consent Required Crossmatch, 09/10/24 23:23:00 EDT, STAT (critical situation), Blood, Once, Stop date 09/10/24 23:23:00 EDT Red Blood Cell (Product), 09/10/24 23:23:00 EDT, STAT (critical situation), 2, Reason: Surgery, Collected Y/N, by VIVIAN Howard Emily, Blood, ST - Stat Red Blood Cell (Product), 09/10/24 23:55:00 EDT, Routine, 2, Reason: Emergent Need, Collected Y/N, by Alise Napier RN, Blood, RT - Routine Sign Consent, 09/10/24 23:55:00 EDT, Once, consent for blood products Type and Screen, 09/10/24 23:23:00 EDT, STAT (critical situation), Blood, Once, Stop date 09/10/24 23:23:[address] the patient on venoarterial ECMO at bedside. Procedure/Surgical History No qualifying data available. Medications Inpatient [facility] Aspirin, 81 mg= 1 tab(s), Oral, qDayM Calcium Gluconate IVPB cisatracurium for IV 200 mg [0.5 mcg/kg/min] + Dextrose 5% in Water 80 mL Colace, 100 mg= 1 cap(s), Oral, BID Colace, 100 mg= 1 cap(s), Oral, BID, PRN Dextrose 5% in Water 1,000 mL + sodium bicarbonate for IV 50 mEq Dextrose 50% IV Push, 25 gram(s)= 50 mL, IV Push, AsDirected, PRN heparin 5000 units/mL injection, 5000 unit(s)= 1 mL, Subcutaneous, q8h magnesium sulfate for IV bolus, 2 gram(s)= 50 mL, IV Piggyback, AsDirected, PRN magnesium sulfate for IV bolus, 4 gram(s)= 100 mL, IV Piggyback, AsDirected, PRN magnesium sulfate for IV bolus melatonin, 3 mg= 1 tab(s), Oral, qHS, PRN Miralax Powder Packet, 17 gram(s)= 15 mL, Oral, qDay, PRN NO METFORMIN (Glucophage) X 48hrs-patient has received contrast, 1 EA, Miscellaneous, Unscheduled NS 1,000 mL, 1000 mL, Intravenous NS 250 mL 250 mL, 250 mL, Intravenous NS 250 mL 250 mL, 250 mL, Intravenous Pepcid, 20 mg= 1 tab(s), Oral, qHS Plavix, 75 mg= 1 tab(s), Oral, qDay potassium chloride, 20 mEq= 1 tab(s), Oral, AsDirected, PRN potassium chloride, 40 mEq= 2 tab(s), Oral, AsDirected, PRN potassium chloride, 40 mEq= 2 tab(s), Oral, AsDirected, PRN potassium chloride bolus, 20 mEq= 100 mL, IV Piggyback, AsDirected, PRN Protonix, 40 mg= 1 tab(s), Oral, qDayAC Tylenol, 650 mg= 2 tab(s), Oral, q4h, PRN Home No active home medications Allergies No active allergies Immunizations No qualifying data available. Digitally Signed by DELVIS GUNDERSON MD on 09/11/2024 12:15 AM [facility] 09-10-2024 Note Exam Date Time Procedure Performing Provider Status 09/10/24 11:21 PM XR Chest 1 View ROGER WEBER MD; A [facility] (Verified) [id number] ORIGINAL EXAMINATION: ONE XRAY VIEW OF THE CHEST09/10/2024 11:22 pm COMPARISON: 09/10/2024, 9:12 p.m. HISTORY: ORDERING SYSTEM PROVIDED HISTORY: Reason for Exam: ECMO FINDINGS: Stable positioning of endotracheal tube, enteric tube, cardiac Impella device and lower extremity approach Wyatt-Lidia catheter. Another wide bore catheter is partially visualized in upper abdomen, tip projecting over expected location of upper IVC. Worsening of bilateral lung opacification. No other significant interval change. IMPRESSION: Support structures as above. Worsening of bilateral lung opacification. I have personally reviewed the images of this examination and agree with the resident's findings and interpretation. Interpreted by: Roger Weber Preliminary Report By: Francisco Grier Electronically signed By Roger Weber Dictated Date: 09/10/2024 11:25:51 PM Prelim Date: 09/10/2024 11:29:40 PM Sign Date: 09/10/2024 11:38:48 PM Ordering Provider: DELVIS GUNDERSON Interpreted by: Roger Weber Preliminary Report By: Francisco Grier Electronically signed By Roger Weber Dictated Date: 09/10/2024 11:25:51 PM Prelim Date: 09/10/2024 11:29:40 PM Sign Date: 09/10/2024 11:38:48 PM Ordering Provider: DELVIS GUNDERSON [id number] Critical care medicine procedure note [facility] Cardiac Critical Care Procedure Note 09/10/2024 22:02:38 Procedure: Arterial Cannula Placement Indication: Hypoxia, Hypotension Consent: Emergent Procedure (Consent Implied) Timeout performed. Correct patient. Correct procedure. Correct site. Availability of necessary equipment. See nurse documentation for participants. Technique: Cigarette Lighter Repairer Preparation: Mask, Cap, Handwashing, Sterile gown and sterile gloves. Site Preparation: Chlorhexidine, Local sterile drape. Site: New Right Radial Anesthesia: 1% lidocaine Ultrasound: Ultrasound guidance throughout procedure (vessel identification, needle puncture, guidewire, confirmed catheter in vessel) Seldinger technique Catheter: 20 Gauge Arrow arterial cannula Biopatch Clear dressing per institution protocol Complications: None immediately observed. Patient tolerated the procedure well. Attestation: I performed entire procedure. Opal Cantu MD [facility] Cardiac Critical Care CPT: 76996 CPT: 70786 (Ultrasound-guided vascular access) Digitally Signed by OPAL CANTU MD on 09/10/2024 10:03 PM [id number] Critical care medicine Consult note [facility] Cardiac Critical Care Consultation Note Date: 09/10/2024 21:48:18 Patient Name: MAGALI RAINEY : 1955 ICU Admit Date: 09/10/24 Intubation Date: 09/10/24 Reason for Consult: Critical Care and Vent Management HPI: Magali Rainey is a 69 year old female with unknown PMH (per report no medical issues or medications) who went unresponsive at [facility]. She received bystander CPR until EMS arrived within 6-8 minutes. ROSC was attained and she was found to have anterior STEMI then was sent to [facility]. Per report, she arrived on 100% with 20 of PEEP. In yard laborer, she had PCI to the LAD then a Impella CP was placed. She was transferred to CCU after yard laborer with ongoing discussions of additional mechanical support. ASSESSMENT OSH CA STEMI, s/p LAD PCI Acute systolic HF with cardiogenic shock s/p Impella CP Acute hypoxic hypercapnic respiratory failure Plan Obtain labs Possible ECMO support with transfer Paralyze to attempt to oxygenate better Working on transfer Allergies: Past Medical History: No qualifying data available. Past Surgical History: No qualifying data available. Social History: No qualifying data available. Family History: No family history recorded. Medications: No qualifying data available. Review of Systems: Patient unable to participate in ROS due to sedation and intubation. Objective: Vitals Signs(Last 24 hrs)__ Last Charted Minimum Maximum Temp 36.7(SEP 10 21:41) 36.7(SEP 10 21:41) 36.7(SEP 10 21:41) Intake and Output (Last 24 hours) Intake Output Total Summary Total Intake 0.00 Total Output 0.00 Fluid Balance 0.00 PHYSICAL EXAM: GENERAL: Obese female intubated and sedated SKIN: warm and dry, no rashes noted HEART: RRR LUNGS: Coarse breath sounds ABDOMEN: soft, GENITOURINARY: Hernandez present. Draining pink urine Labs: Event Name Event Result Date/Time WBC 11.8 10^3/mcL High 09/10/24 21:30:00 Hgb 17 G/dL High 09/10/24 21:30:00 Hct 51.3 % High 09/10/24 21:30:00 Platelet 324 10^3/mcL 09/10/24 21:30:00 APTT >200.0 Critical 09/10/24 19:49:00 Protime 17.4 seconds High 09/10/24 19:49:00 PT International Ratio 1.5 ratio 09/10/24 19:49:00 Fibrinogen 377 mg/dL 09/10/24 19:49:00 Glucose Level 303 mg/dL High 09/10/24 19:49:00 Sodium Level 138 mEq/L 09/10/24 19:49:00 Potassium Level 4 mEq/L 09/10/24 19:49:00 Chloride 105 mEq/L 09/10/24 19:49:00 CO2 24 mEq/L 09/10/24 19:49:00 BUN 23 mg/dL High 09/10/24 19:49:00 Creatinine Lvl (s) 1.2 mg/dL 09/10/24 19:49:00 Imaging: XR Chest 1 View Result Date: September 10, 2024 Verified By: ROGER WEBER MD CLINICAL STATEMENT: IMPRESSION: Lines and tubes as above. Opacities in the lungs, nonspecific althoughcorrelate for edema or infection and follow-up to resolution. Echo: pending Pertinent Reviewed: Allergies, Medications, Labs, Imaging, and Physician and Nursing Notes. Critical Care services I provided [id number] 90 minutes. The time involved in the performance of this care was exclusive of separately billable procedures, teaching time, and treating other patients. The time was spent personally by myself for the following activities: examination of the patient, ordering and/or performing treatment, reviewing the laboratory and radiographic studies and if applicable,ventilator management and blood gas interpretation. Patient treatment plan of care discussed with Dr. Sosa, Dr. Gunderson, and ICU team. Opal Cantu MD Cardiac Critical Care Digitally Signed by OPAL CANTU MD on 09/10/2024 10:02 PM [facility] [id number] Note* Exam Date Time Procedure Performing Provider Status 09/10/24 9:18 PM XR Chest 1 View ROGER WEBER MD; [facility] (Verified) [id number] ORIGINAL EXAMINATION: ONE XRAY VIEW OF THE CHEST 09/10/2024 9:18 pm COMPARISON: None. HISTORY: ORDERING SYSTEM PROVIDED HISTORY: Reason for Exam: progressive hypoxia FINDINGS: Endotracheal tube distal tip projects 2.8 cm above the bao. Enteric tube courses below the diaphragm with distal tip projecting over the proximal stomach. Impella device. Inferior approach catheter distal tip projects over the expected location of the left lower lobar pulmonary artery. Generalized opacities throughout the lungs, particularly in the perihilar regions. Left costophrenic angle is sharp. Right costophrenic angle is obscured. No radiographic pneumothorax. Degenerative changes of the spine. IMPRESSION: Lines and tubes as above. Opacities in the lungs, nonspecific although correlate for edema or infection and follow-up to resolution. Interpreted by: Roegr Weber Preliminary Report By: Roger Weber Electronically signed By Roger Weber Dictated Date: 09/10/2024 9:22:55 PM Prelim Date: 09/10/2024 9:25:21 PM Sign Date: 09/10/2024 9:25:21 PM Ordering Provider: ADE ALVES Interpreted by: Roger Weber Preliminary Report By: Roger Weber Electronically signed By Roger Weber Dictated Date: 09/10/2024 9:22:55 PM Prelim Date: 09/10/2024 9:25:21 PM Sign Date: 09/10/2024 9:25:21 PM Ordering Provider: ADE ALVES [facility] [id number] Note* Exam Date Time Procedure Performing Provider Status 09/10/24 8:51 PM Echocardiogram, Adult - CV JARED MENCHACA MD; Auth (Verified) [facility] [id number] Cardiology Consult note Referring Physician Dr Urbina History of Present Illness 69-year-old lady with no clear past medical history who had [id number] cardiac arrest bystander CPR presented for STEMI. Patient was seen in the Quality Improvement Manager. Heart failure service was consulted given cardiogenic shock and hypoxia. Patient was intubated and on ventilator saturating around 80%. After discussion with Dr. Urbina in light of pulmonary edema and hypoxia as well as severe LV dysfunction we decided to proceed with an Impella CP placement. Impella positioning was confirmed on echocardiogram and there was no LV thrombus prior to placement. Review of Systems Unable to obtain patient is ventilated and sedated Physical Exam Vitals and Measurements RR: 24 (Total) RR: 0 (Spontaneous) No qualifying data available. General Appearance: Sedated Head: Normocephalic atraumatic EENT: Conjunctiva pink, sclera normal, Neck: No lumps or swellings noted Cardiac: S1, S2, no S3 or S4, Lungs: On ventilator Abdomen: Soft, nontender, nondistended bowel sounds positive Musculoskeletal: No joint swelling Extremities: Warm well perfused, no significant edema noted Neurological: Sedated Skin: No rashes Psychiatric: Sedated Lab Results 09/10 19:49 WBC: 14.2 H Hgb: 16.8 H Hct: 50.0 H Platelet: 331 Neutrophil %: 81.3 H Glucose Level: 303 H Sodium Level: 138 Potassium Level: 4.0 BUN: 23.0 H Creatinine Lvl (s): 1.20 Assessment/Plan I have personally reviewed available labs, pertinent cardiac and radiologic imaging, notes, medications, orders in the chart, telemetry, ECG. Acute systolic heart failure with cardiogenic shock in the setting of a LAD STEMI Obesity Hypertension Hypoxic and hypercapnic respiratory failure [id number] cardiac arrest with unknown neurological status Proceeded with Impella CP. Start nitroprusside for afterload reduction given hypotension Systolic blood pressure is noted to be around 150-180 in the Quality Improvement Manager. Another 40 of IV Lasix given for total of 120 mg. If patient continues to be persistently hypoxic may need ECMO. Depending on patient's hemodynamics Impella may be weaned over the next 24 hours if afterload persistently stays high. Depending on patient's clinical course and neurological recovery may need to be considered for advanced heart failure therapies although hopefully given high afterload and room to optimize medications should be able to wean off mechanical circulatory support. Procedure/Surgical History No qualifying data available. Medications Inpatient [facility] Aspirin, 81 mg, Oral, qDayM Colace, 100 mg= 1 cap(s), Oral, BID Colace, 100 mg= 1 cap(s), Oral, BID, PRN Dextrose 50% IV Push, 25 gram(s)= 50 mL, IV Push, AsDirected, PRN heparin 5000 units/mL injection, 5000 unit(s)= 1 mL, Subcutaneous, q8h magnesium sulfate for IV bolus, 2 gram(s)= 50 mL, IV Piggyback, AsDirected, PRN magnesium sulfate for IV bolus, 4 gram(s)= 100 mL, IV Piggyback, AsDirected, PRN magnesium sulfate for IV bolus melatonin, 3 mg= 1 tab(s), Oral, qHS, PRN Miralax Powder Packet, 17 gram(s)= 15 mL, Oral, qDay, PRN NO METFORMIN (Glucophage) X 48hrs-patient has received contrast, 1 EA, Miscellaneous, Unscheduled NS 1,000 mL, 1000 mL, Intravenous Pepcid, 20 mg= 1 tab(s), Oral, qHS Plavix, 75 mg= 1 tab(s), Oral, qDay potassium chloride, 20 mEq= 1 tab(s), Oral, AsDirected, PRN potassium chloride, 40 mEq= 2 tab(s), Oral, AsDirected, PRN potassium chloride, 40 mEq= 2 tab(s), Oral, AsDirected, PRN potassium chloride bolus, 20 mEq= 100 mL, IV Piggyback, AsDirected, PRN Protonix, 40 mg= 1 tab(s), Oral, qDayAC Tylenol, 650 mg= 2 tab(s), Oral, q4h, PRN Zofran, 4 mg= 2 mL, IV Push, q8h, PRN Home No active home medications Allergies No active allergies Immunizations No qualifying data available. Digitally Signed by AMERICA SOSA MD on 09/10/2024 08:38 PM [facility] [id number] History and physical note Date of Service 09/10/2024 Chief Complaint STEMI History of Present Illness 69-year-old female was transferred for suspected STEMI. On arrival, patient was in acute respiratory distress, she was urgently taken into the Quality Improvement Manager. Detailed history could not be taken given the presentation of the patient. Review of Systems Could not be reviewed Physical Exam Vitals and Measurements RR: 22 (Total) RR: 0 (Spontaneous) No qualifying data available. General Appearance: Comfortable, not in acute distress HEENT:Bilateral normal eye movements, normal oral cavity Neck: No JVD noted Cardiac: S1, S2, no murmurs, regular rhythm, normal rate, Lungs: No wheezes, normal chest expansion. Abdomen: No tenderness, no distention, normal bowel sounds. Musculoskeletal: No signs of acute synovitis. Neurological: Alert and oriented x3, no focal neurological deficits grossly. Extremities: no lower extremity edema, no crackles, no JVP distention, warm extremities. Psychiatric: Appropriate, normal mood. Lab Results No 36 Hour Lab Data Assessment/Plan 69-year-old female was transferred for suspected STEMI. ASSESSMENT #Anterior STEMI, status post PCI to LAD #Cardiogenic shock requiring mechanical support #Acute hypoxic respiratory failure #Severely reduced left ventricular ejection fraction in the setting STEMI Plan Patient underwent PCI to LAD Start dual antiplatelet therapy Patient currently on Impella support. Consulting heart failure and cardiac manager child teams Will obtain labs Obtain lactic acid, CBC CMP, troponin, BNP Close monitoring in the ICU setting. Procedure/Surgical History No qualifying data available. Medications No qualifying data available Allergies No active allergies Immunizations No qualifying data available. Code Status No qualifying data available. Digitally Signed by IAN LESLIE MD on 09/10/2024 08:00 PM Digitally Signed by MEÑO URBINA MD [facility] [id number] Evaluation + Plan noteExtracted from: Title:History and Physical Author:ANNELISE LESLIE MD Date:09/10/24 69-year-old female was trans ferred for suspected STEMI. ASSESSMENT #Anterior STEMI, status post PCI to LAD #Cardiogenic shock requiring mechanical support #Acute hypoxic respiratory failure #Severely reduced left ventricular ejection fraction in the setting STEMI Plan Patient underwent PCI to LAD Start dual antiplatelet therapy Patient currently on Impella support. Consulting heart failure and cardiac manager child teams Will obtain labs Obtain lactic acid, CBC CMP, troponin, BNP Close monitoring in the ICU setting. Diagnostic Tests Pending * Troponin I High Sensitivity 09/11/24 [facility] Hospital course Narrative No data available for this section [facility] Hospital Discharge instructions No data available for this section [facility] Summary Purpose Family History No Family History Records FoundNo Family History Records Found No data available for this section No Family History Records FoundNo Family History Records FoundNo Family History Records FoundNo Family History Records FoundNo Family History Records FoundNo Family History Records FoundNo Family History Records FoundNo Family History Records Found Advance Directives No Advanced Directives Records Found Date Activated Date Inactivated Comments 09/11/2024 8:08 AM Question Answer Comments Plan of Care: Code Status Discussion Completed Decision Maker: Patient Date Activated Date Inactivated Comments 09/11/2024 2:57 AM 09/11/2024 8:08 AM Question Answer Comments Plan of Care: Code Status Discussion Completed Decision Maker: Provider Rationale: Patient condition does not warra nt a discussion Additional Source Comments INFORMATION SOURCE (unrecogn ized section and content) DATE CREATED AUTHOR 04/13/2024 [facility] DATE CREATED AUTHOR AUTHOR'S ORGANIZ ATION 04/24/2024 [facility] DATE CREATED AUTHOR AUTHOR'S ORGANIZ ATION 09/13/2024 [facility] DATE CREATED AUTHOR AUTHOR'S ORGANIZ ATION 09/20/2024 [facility] DATE CREATED AUTHOR AUTHOR'S ORGANIZ ATION 10/03/2024 [facility] DATE CREATED AUTHOR AUTHOR'S ORGANIZ ATION 10/03/2024 [facility] DATE CREATED AUTHOR AUTHOR'S ORGANIZ ATION 10/26/2024 [facility] DATE CREATED AUTHOR AUTHOR'S ORGANIZ ATION 11/24/2024 [facility] DATE CREATED AUTHOR AUTHOR'S ORGANIZ ATION 11/27/2024 [facility] FOR RECORDS PERTAINING TO PATIENTS WHO ARE OR HAVE BEEN ENROLLED IN A CHEMICAL DEPENDENCY/SUBSTANCEABUSE PROGRAM, SOME INFORMATION MAY BE OMITTED. This clinical summary was aggregated from multiple sources. Caution should be exercised in using it in the provision of clinical care. This summary normalizes information from multiple sources, and as a consequence, information in this document may materially change the coding, format and clinical context of patient data. In addition, data may be omitted in some cases. CLINICAL DECISIONS SHOULD BE BASED ON THE PRIMARY CLINICAL RECORDS. [facility] [email or web address] provides no warranty or guarantee of the accuracy or completeness of information in this document.
--- OUTSIDE RECORDS SUMMARY | 2024-12-01 03:32 | XMS RPT_ITS | CCD ---
Author Organization [facility] Care Team Providers Care Chassis Inspector Name Role Phone Magdy Wood MD Unavailable [...] Consulting Unavaila TRINH Prado MD Attending Unavailable AMKENZIE DUARTE, TRINH Admitting Unavailable PHYSICIAN, NONE Primary Care Unavailable Yamilet Jon Attending Unavailable Allergies Allergy Classification Reported Allergen(s) Allergy Type Date of Onset Reaction(s) Facility (1 source) heparin; Translations: [HEPARIN] Drug Allergy 09-29-2024 [facility] Medications Completed/Discontinued Medications Medication Drug Class(es) Dates [...] associated itching. Note for Rash: reviewed by [facility] 09-06-2015 Unclassified (1 source) [facility] Well Adult 04-23-2024 Unclassified (3 sources) [facility] Well Adult - In general the patient [...] patient does not have Healthcare Power of Electric Trucker or Living Will. Note for [facility] Well Adult: reviewed by [facility] 04-23-2024 Results Test Name Value Interpretation Reference Range Facility Albumin, Serumon 11-26-2024 Albumin [Mass/Vol] 3.3 g/dL Low 3.4-4.8 [facility] Comment on above: Performed By: #### L 500.2500, L501.1800, L100.0500 #### [facility] [address] [facility] [address] Basic Metabolic Profile (BMP )on 11-26-2024 BUN/CRE 5.7 RATIO Low 10-20 [facility] Comment on above: Performed By: #### L 500.2500, L501.1800, L100.0500 #### [facility] [address] [facility] [address] Calcium [Mass/Vol] 9.5 mg/dL Normal 7.6-11.0 [facility] Comment on above: Performed By: #### L 500.2500, L501.1800, L100.0500 #### [facility] [address] [place], [address] Chloride [Moles/Vol] 97 mmol/L Low 98-108 [facility] Comment on above: Performed By: #### L 500.2500, L501.1800, L100.0500 #### [facility] [address] [place], [address] CO2 [Moles/Vol] 28.4 mmol/L Normal 21.0-32.0 [facility] Comment on above: Performed By: #### L 500.2500, L501.1800, L100.0500 #### [facility] [address] [place], [address] Creatinine [Mass/Vol] 2.33 mg/dL High 0.70-1.20 [facility] Comment on above: Performed By: #### L 500.2500, L501.1800, L100.0500 #### [facility] [address] [place], [address] GAP 11 Normal 5-15 [facility] Comment on above: Performed By: #### L 500.2500, L501.1800, L100.0500 #### [facility] [address] [place], [address] GFR/1.73 sq M.predicted among non-blacks MDRD (S/P/Bld) [Vol rate/Area] 22 mL/min/{1.73_m2} Low >60 [facility] Comment on above: Result Comment: mL/m in/1.73m2 CKD-EPI Creatinine Equation (2020) Performed By: #### L 500.2500, L501.1800, L100.0500 #### [facility] [address] [place], [address] Glucose [Mass/Vol] 75 mg/dL Normal 70-99 [facility] Comment on above: Performed By: #### L 500.2500, L501.1800, L100.0500 #### [facility] [address] [place], [address] Potassium [Moles/Vol] 4.3 mmol/L Normal 3.3-5.1 [facility] Comment on above: Result Comment: Hemo lysis present, Results??could be affected. ?? Performed By: #### L 500.2500, L501.1800, L100.0500 #### [facility] [address] [place], [address] Sodium [Moles/Vol] 136 mmol/L Normal 133-145 [facility] Comment on above: Performed By: #### L 500.2500, L501.1800, L100.0500 #### [facility] [address] [place], [address] Urea nitrogen [Mass/Vol] 13 mg/dL Normal 4-19 [facility] Comment on above: Performed By: #### L 500.2500, L501.1800, L100.0500 #### [facility] [address] [place], [address] CBC-Complete Blood Cnt No Di ffon 11-26-2024 Erythrocyte distribution width (RBC) [Ratio] 15.0 % High 11.6-14.6 [facility] Comment on above: Performed By: #### L 500.2500, L501.1800, L100.0500 #### [facility] [address] [place], [address] Hematocrit (Bld) [Volume fraction] 41.3 % Normal 37-47 [facility] Comment on above: Performed By: #### L 500.2500, L501.1800, L100.0500 #### [facility] [address] [place], [address] Hemoglobin (Bld) [Mass/Vol] 12.5 g/dL Normal 12.0-15.0 [facility] Comment on above: Performed By: #### L 500.2500, L501.1800, L100.0500 #### [facility] [address] [place], [address] MCH (RBC) [Entitic mass] 28.3 pg Normal 27.0-32.0 [facility] Comment on above: Performed By: #### L 500.2500, L501.1800, L100.0500 #### [facility] [address] [place], [address] MCHC (RBC) [Mass/Vol] 30.3 g/dL Low 32-36 [facility] Comment on above: Performed By: #### L 500.2500, L501.1800, L100.0500 #### [facility] [address] [place], [address] MCV (RBC) [Entitic vol] 93.4 fL Normal 81-99 [facility] Comment on above: Performed By: #### L 500.2500, L501.1800, L100.0500 #### [facility] [address] [place], [address] Platelet mean volume (Bld) [Entitic vol] 10.7 fL Normal 6.2-12.0 [facility] Comment on above: Performed By: #### L 500.2500, L501.1800, L100.0500 #### [facility] [address] [place], [address] Platelets (Bld) [#/Vol] 229 10*3/uL Normal 150-450 [facility] Comment on above: Performed By: #### L 500.2500, L501.1800, L100.0500 #### [facility] [address] [place], [address] RBC (Bld) [#/Vol] 4.42 10*6/uL Normal 4.2-5.4 [facility] Comment on above: Performed By: #### L 500.2500, L501.1800, L100.0500 #### [facility] [address] [place], [address] RDW SD 51.2 fl High 35.1-43.9 [facility] Comment on above: Performed By: #### L 500.2500, L501.1800, L100.0500 #### [facility] [address] [place], [address] WBC (Bld) [#/Vol] 5.3 10*3/uL Normal 4.4-11.0 [facility] Comment on above: Performed By: #### L 500.2500, L501.1800, L100.0500 #### [facility] [address] [place], [address] .Auto Diffon 11-23-2024 Basophil, Absolute 0.1 10 3/mcL Normal 0.0-0.3 [facility] Comment on above: Performed By: #### B FPR, GLUBF, BFCT, PROBF #### [facility] [address] [place] [address] Basophils/100 WBC (Bld) 1.1 % Normal 0.0-2.5 [facility] Comment on above: Performed By: #### B FPR, GLUBF, BFCT, PROBF #### [facility] [address] [place] [address] Eosinophil, Absolute 0.0 10 3/mcL Normal 0.0-0.7 [facility] Comment on above: Performed By: #### B FPR, GLUBF, BFCT, PROBF #### [facility] [address] [place] [address] Eosinophils/100 WBC (Bld) 0.1 % Normal 0.0-6.0 [facility] Comment on above: Performed By: #### B FPR, GLUBF, BFCT, PROBF #### [address] [address] Lymphocyte, Absolute 1.8 10 3/mcL Normal 0.9-4.3 [facility] Comment on above: Performed By: #### B FPR, GLUBF, BFCT, PROBF #### [address] [address] Lymphocytes/100 WBC (Bld) 35.3 % Normal 20.0-40.0 [facility] Comment on above: Performed By: #### B FPR, GLUBF, BFCT, PROBF #### [address] [address] Monocyte, Absolute 0.5 10 3/mcL Normal 0.1-1.4 [facility] Comment on above: Performed By: #### B FPR, GLUBF, BFCT, PROBF #### [address] [address] Monocytes/100 WBC (Bld) 9.7 % Normal 2.0-13.0 [facility] Comment on above: Performed By: #### B FPR, GLUBF, BFCT, PROBF #### [address] [address] Neutrophils/100 WBC (Bld) 53.8 % Normal 50.0-75.0 [facility] Comment on above: Performed By: #### B FPR, GLUBF, BFCT, PROBF #### [place] [id number] .GFRon 11-23-2024 Estimated Glomerular Filtration Rate 14 ml/min/1.73sqm Normal [facility] Comment on above: Result Comment: [...] #### B FPR, GLUBF, BFCT, PROBF #### [address] [address] .Morphon 11-23-2024 Anisocytosis Ql (Bld) 1+ Normal [facility] Comment on above: Performed By: #### B FPR, GLUBF, BFCT, PROBF #### [place] [address] Platelet Estimate Normal Normal [facility] Comment on above: Performed By: #### B FPR, GLUBF, BFCT, PROBF #### [place] [address] .NEUABSon 11-23-2024 Neutrophil, Absolute 2.7 10 3/mcL Normal 2.3-8.1 [facility] Comment on above: Performed By: #### B FPR, GLUBF, BFCT, PROBF #### [place] [address] BMPon 11-23-2024 BUN/Creatinine Ratio 3.8 ratio Low 10.0-22.0 [facility] Comment on above: Performed By: #### B FPR, GLUBF, BFCT, PROBF #### [place] [address] Calcium [Mass/Vol] 10.2 mg/dL Normal 8.7-10.4 [facility] Comment on above: Performed By: #### B FPR, GLUBF, BFCT, PROBF #### [place] [address] Chloride [Moles/Vol] 99 mmol/L Normal 98-110 [facility] Comment on above: Performed By: #### B FPR, GLUBF, BFCT, PROBF #### [place] [address] CO2 [Moles/Vol] 27 mmol/L Normal 22-32 [facility] Comment on above: Performed By: #### B FPR, GLUBF, BFCT, PROBF #### [place] [address] Creatinine [Mass/Vol] 3.45 mg/dL High 0.50-1.20 [facility] Comment on above: Result Comment: Test ing performed on Pollen analyzer using enzymatic creatinine methodology. Performed By: #### B FPR, GLUBF, BFCT, PROBF #### [address] [address] Electrolyte Balance 8.0 mEq/L Normal 4.0-15.0 [facility] Comment on above: Performed By: #### B FPR, GLUBF, BFCT, PROBF #### [address] [address] Glucose [Mass/Vol] 109 mg/dL Normal 82-115 [facility] Comment on above: Performed By: #### B FPR, GLUBF, BFCT, PROBF #### [place] [id number] Potassium [Moles/Vol] 4.9 mmol/L Normal 3.5-5.0 [facility] Comment on above: Performed By: #### B FPR, GLUBF, BFCT, PROBF #### [place] [id number] Sodium [Moles/Vol] 134 mmol/L Low 136-145 [facility] Comment on above: Performed By: #### B FPR, GLUBF, BFCT, PROBF #### [place] [address] Urea nitrogen [Mass/Vol] 13.0 mg/dL Normal 8.0-22.0 [facility] Comment on above: Performed By: #### B FPR, GLUBF, BFCT, PROBF #### [address] [address] CBCon 11-23-2024 Platelet 212 10 3/mcL Normal 150-450 [facility] Comment on above: Performed By: #### B FPR, GLUBF, BFCT, PROBF #### [address] [address] Platelet mean volume (Bld) [Entitic vol] 8.4 fL Normal 6.6-10.5 [facility] Comment on above: Performed By: #### B FPR, GLUBF, BFCT, PROBF #### [place] [id number] Erythrocyte distribution width (RBC) [Ratio] 16.0 % High 11.5-15.5 [facility] Comment on above: Performed By: #### B FPR, GLUBF, BFCT, PROBF #### [place] [address] Hematocrit (Bld) [Volume fraction] 39.4 % Normal 34.0-46.0 [facility] Comment on above: Performed By: #### B FPR, GLUBF, BFCT, PROBF #### [place] [address] Hgb 12.5 G/dL Normal 12.0-16.0 [facility] Comment on above: Performed By: #### B FPR, GLUBF, BFCT, PROBF #### [place] [address] MCH (RBC) [Entitic mass] 28.3 pg Normal 27.0-33.0 [facility] Comment on above: Performed By: #### B FPR, GLUBF, BFCT, PROBF #### [place] [address] MCHC 31.8 G/dL Low 32.0-36.0 [facility] Comment on above: Performed By: #### B FPR, GLUBF, BFCT, PROBF #### [place] [address] MCV (RBC) [Entitic vol] 89.0 fL Normal 80.0-99.0 [facility] Comment on above: Performed By: #### B FPR, GLUBF, BFCT, PROBF #### [place] [address] RBC 4.42 10 6/mcL Normal 4.10-5.30 [facility] Comment on above: Performed By: #### B FPR, GLUBF, BFCT, PROBF #### [place] [address] WBC 5.1 10 3/mcL Normal 4.5-10.8 [facility] Comment on above: Performed By: #### B FPR, GLUBF, BFCT, PROBF #### [place] [id number] XR CHEST 1 VIEWon 11-22-2024 XR CHEST [...] 4:33:13 PM Ordering Provider: MAX GONZALEZ Normal [facility] .Auto Diffon 11-20-2024 Basophil, Absolute 0.1 10 3/mcL Normal 0.0-0.3 [facility] Comment on above: Performed By: #### B FPR, GLUBF, BFCT, PROBF #### [address] [address] Basophils/100 WBC (Bld) 1.4 % Normal 0.0-2.5 [facility] Comment on above: Performed By: #### B FPR, GLUBF, BFCT, PROBF #### [address] [address] Eosinophil, Absolute 0.0 10 3/mcL Normal 0.0-0.7 [facility] Comment on above: Performed By: #### B FPR, GLUBF, BFCT, PROBF #### [address] [address] Eosinophils/100 WBC (Bld) 0.0 % Normal 0.0-6.0 [facility] Comment on above: Performed By: #### B FPR, GLUBF, BFCT, PROBF #### [address] [address] Lymphocyte, Absolute 1.6 10 3/mcL Normal 0.9-4.3 [facility] Comment on above: Performed By: #### B FPR, GLUBF, BFCT, PROBF #### [address] [address] Lymphocytes/100 WBC (Bld) 34.9 % Normal 20.0-40.0 [facility] Comment on above: Performed By: #### B FPR, GLUBF, BFCT, PROBF #### [address] [address] Monocyte, Absolute 0.7 10 3/mcL Normal 0.1-1.4 [facility] Comment on above: Performed By: #### B FPR, GLUBF, BFCT, PROBF #### [address] [address] Monocytes/100 WBC (Bld) 15.2 % High 2.0-13.0 [facility] Comment on above: Performed By: #### B FPR, GLUBF, BFCT, PROBF #### [address] [address] Neutrophils/100 WBC (Bld) 48.5 % Low 50.0-75.0 [facility] Comment on above: Performed By: #### B FPR, GLUBF, BFCT, PROBF #### [address] [address] .GFRon 11-20-2024 Estimated Glomerular Filtration Rate 17 ml/min/1.73sqm Normal [facility] Comment on above: Result Comment: [...] #### B FPR, GLUBF, BFCT, PROBF #### [address] [address] .NEUABSon 11-20-2024 Neutrophil, Absolute 2.3 10 3/mcL Normal 2.3-8.1 [facility] Comment on above: Performed By: #### B FPR, GLUBF, BFCT, PROBF #### [address] [address] BMPon 11-20-2024 BUN/Creatinine Ratio 2.7 ratio Low 10.0-22.0 [facility] Comment on above: Performed By: #### B FPR, GLUBF, BFCT, PROBF #### [address] [address] Calcium [Mass/Vol] 9.2 mg/dL Normal 8.7-10.4 [facility] Comment on above: Performed By: #### B FPR, GLUBF, BFCT, PROBF #### [place] [address] Chloride [Moles/Vol] 99 mmol/L Normal 98-110 [facility] Comment on above: Performed By: #### B FPR, GLUBF, BFCT, PROBF #### [place] [id number] CO2 [Moles/Vol] 27 mmol/L Normal 22-32 [facility] Comment on above: Performed By: #### B FPR, GLUBF, BFCT, PROBF #### [address] [address] Creatinine [Mass/Vol] 2.92 mg/dL High 0.50-1.20 [facility] Comment on above: Result Comment: Test ing performed on Pollen analyzer using enzymatic creatinine methodology. Performed By: #### B FPR, GLUBF, BFCT, PROBF #### [address] [address] Electrolyte Balance 10.0 mEq/L Normal 4.0-15.0 [facility] Comment on above: Performed By: #### B FPR, GLUBF, BFCT, PROBF #### [place] [address] Glucose [Mass/Vol] 80 mg/dL Low 82-115 [facility] Comment on above: Performed By: #### B FPR, GLUBF, BFCT, PROBF #### [place] [address] Potassium [Moles/Vol] 4.1 mmol/L Normal 3.5-5.0 [facility] Comment on above: Performed By: #### B FPR, GLUBF, BFCT, PROBF #### [place] [address] Sodium [Moles/Vol] 136 mmol/L Normal 136-145 [facility] Comment on above: Performed By: #### B FPR, GLUBF, BFCT, PROBF #### [place] [address] Urea nitrogen [Mass/Vol] 8.0 mg/dL Normal 8.0-22.0 [facility] Comment on above: Performed By: #### B FPR, GLUBF, BFCT, PROBF #### [place] [address] CBCon 11-20-2024 Erythrocyte distribution width (RBC) [Ratio] 16.3 % High 11.5-15.5 [facility] Comment on above: Performed By: #### B FPR, GLUBF, BFCT, PROBF #### [place] [address] Hematocrit (Bld) [Volume fraction] 33.4 % Low 34.0-46.0 [facility] Comment on above: Performed By: #### B FPR, GLUBF, BFCT, PROBF #### [place] [address] Hgb 10.8 G/dL Low 12.0-16.0 [facility] Comment on above: Performed By: #### B FPR, GLUBF, BFCT, PROBF #### [place] [id number] MCH (RBC) [Entitic mass] 28.7 pg Normal 27.0-33.0 [facility] Comment on above: Performed By: #### B FPR, GLUBF, BFCT, PROBF #### [place] [address] MCHC 32.3 G/dL Normal 32.0-36.0 [facility] Comment on above: Performed By: #### B FPR, GLUBF, BFCT, PROBF #### [place] [address] MCV (RBC) [Entitic vol] 88.8 fL Normal 80.0-99.0 [facility] Comment on above: Performed By: #### B FPR, GLUBF, BFCT, PROBF #### [place] [address] Platelet 287 10 3/mcL Normal 150-450 [facility] Comment on above: Performed By: #### B FPR, GLUBF, BFCT, PROBF #### [place] [address] Platelet mean volume (Bld) [Entitic vol] 7.7 fL Normal 6.6-10.5 [facility] Comment on above: Performed By: #### B FPR, GLUBF, BFCT, PROBF #### [place] [address] RBC 3.76 10 6/mcL Low 4.10-5.30 [facility] Comment on above: Performed By: #### B FPR, GLUBF, BFCT, PROBF #### [place] [address] WBC 4.7 10 3/mcL Normal 4.5-10.8 [facility] Comment on above: Performed By: #### B FPR, GLUBF, BFCT, PROBF #### [place] [address] HBSAGon 11-19-2024 Hep B Surf Ag Non-Reactive Normal Non-Reactive [facility] Comment on above: Performed By: #### H BSAG, HBSAB #### [address] [address] .Auto Diffon 11-18-2024 Basophil, Absolute 0.1 10 3/mcL Normal 0.0-0.3 [facility] Comment on above: Performed By: #### B FPR, GLUBF, BFCT, PROBF #### [address] [address] Basophils/100 WBC (Bld) 1.9 % Normal 0.0-2.5 [facility] Comment on above: Performed By: #### B FPR, GLUBF, BFCT, PROBF #### [address] [address] Eosinophil, Absolute 0.0 10 3/mcL Normal 0.0-0.7 [facility] Comment on above: Performed By: #### B FPR, GLUBF, BFCT, PROBF #### [address] [address] Eosinophils/100 WBC (Bld) 0.1 % Normal 0.0-6.0 [facility] Comment on above: Performed By: #### B FPR, GLUBF, BFCT, PROBF #### [address] [address] Lymphocyte, Absolute 1.7 10 3/mcL Normal 0.9-4.3 [facility] Comment on above: Performed By: #### B FPR, GLUBF, BFCT, PROBF #### [address] [address] Lymphocytes/100 WBC (Bld) 42.3 % High 20.0-40.0 [facility] Comment on above: Performed By: #### B FPR, GLUBF, BFCT, PROBF #### [address] [address] Monocyte, Absolute 0.7 10 3/mcL Normal 0.1-1.4 [facility] Comment on above: Performed By: #### B FPR, GLUBF, BFCT, PROBF #### [address] [address] Monocytes/100 WBC (Bld) 17.0 % High 2.0-13.0 [facility] Comment on above: Performed By: #### B FPR, GLUBF, BFCT, PROBF #### [address] [address] Neutrophils/100 WBC (Bld) 38.7 % Low 50.0-75.0 [facility] Comment on above: Performed By: #### B FPR, GLUBF, BFCT, PROBF #### [address] [address] .GFRon 11-18-2024 Estimated Glomerular Filtration Rate 17 ml/min/1.73sqm Normal [facility] Comment on above: Result Comment: [...] #### B FPR, GLUBF, BFCT, PROBF #### [place] [address] .NEUABSon 11-18-2024 Neutrophil, Absolute 1.5 10 3/mcL Low 2.3-8.1 [facility] Comment on above: Performed By: #### B FPR, GLUBF, BFCT, PROBF #### [address] [address] BMPon 11-18-2024 BUN/Creatinine Ratio 4.0 ratio Low 10.0-22.0 [facility] Comment on above: Performed By: #### B FPR, GLUBF, BFCT, PROBF #### [address] [address] Calcium [Mass/Vol] 9.8 mg/dL Normal 8.7-10.4 [facility] Comment on above: Performed By: #### B FPR, GLUBF, BFCT, PROBF #### [address] [address] Chloride [Moles/Vol] 97 mmol/L Low 98-110 [facility] Comment on above: Performed By: #### B FPR, GLUBF, BFCT, PROBF #### [address] [address] CO2 [Moles/Vol] 28 mmol/L Normal 22-32 [facility] Comment on above: Performed By: #### B FPR, GLUBF, BFCT, PROBF #### [address] [address] Creatinine [Mass/Vol] 2.98 mg/dL High 0.50-1.20 [facility] Comment on above: Result Comment: Test ing performed on Pollen analyzer using enzymatic creatinine methodology. Performed By: #### B FPR, GLUBF, BFCT, PROBF #### [place] [id number] Electrolyte Balance 12.0 mEq/L Normal 4.0-15.0 [facility] Comment on above: Performed By: #### B FPR, GLUBF, BFCT, PROBF #### [address] [address] Glucose [Mass/Vol] 81 mg/dL Low 82-115 [facility] Comment on above: Performed By: #### B FPR, GLUBF, BFCT, PROBF #### [address] [address] Potassium [Moles/Vol] 5.0 mmol/L Normal 3.5-5.0 [facility] Comment on above: Performed By: #### B FPR, GLUBF, BFCT, PROBF #### [address] [address] Sodium [Moles/Vol] 137 mmol/L Normal 136-145 [facility] Comment on above: Performed By: #### B FPR, GLUBF, BFCT, PROBF #### [address] [address] Urea nitrogen [Mass/Vol] 12.0 mg/dL Normal 8.0-22.0 [facility] Comment on above: Performed By: #### B FPR, GLUBF, BFCT, PROBF #### [place] [address] CBCon 11-18-2024 Erythrocyte distribution width (RBC) [Ratio] 16.2 % High 11.5-15.5 [facility] Comment on above: Performed By: #### B FPR, GLUBF, BFCT, PROBF #### [place] [address] Hematocrit (Bld) [Volume fraction] 35.6 % Normal 34.0-46.0 [facility] Comment on above: Performed By: #### B FPR, GLUBF, BFCT, PROBF #### [place] [address] Hgb 11.3 G/dL Low 12.0-16.0 [facility] Comment on above: Performed By: #### B FPR, GLUBF, BFCT, PROBF #### [place] [address] MCH (RBC) [Entitic mass] 28.5 pg Normal 27.0-33.0 [facility] Comment on above: Performed By: #### B FPR, GLUBF, BFCT, PROBF #### [place] [address] MCHC 31.7 G/dL Low 32.0-36.0 [facility] Comment on above: Performed By: #### B FPR, GLUBF, BFCT, PROBF #### [place] [address] MCV (RBC) [Entitic vol] 89.7 fL Normal 80.0-99.0 [facility] Comment on above: Performed By: #### B FPR, GLUBF, BFCT, PROBF #### [place] [address] Platelet 355 10 3/mcL Normal 150-450 [facility] Comment on above: Performed By: #### B FPR, GLUBF, BFCT, PROBF #### [address] [address] Platelet mean volume (Bld) [Entitic vol] 7.9 fL Normal 6.6-10.5 [facility] Comment on above: Performed By: #### B FPR, GLUBF, BFCT, PROBF #### [address] [address] RBC 3.97 10 6/mcL Low 4.10-5.30 [facility] Comment on above: Performed By: #### B FPR, GLUBF, BFCT, PROBF #### [address] [address] WBC 3.9 10 3/mcL Low 4.5-10.8 [facility] Comment on above: Performed By: #### B FPR, GLUBF, BFCT, PROBF #### [address] [address] .Auto Diffon 11-16-2024 Basophil, Absolute 0.1 10 3/mcL Normal 0.0-0.3 [facility] Comment on above: Performed By: #### B FPR, GLUBF, BFCT, PROBF #### [address] [address] Basophils/100 WBC (Bld) 1.0 % Normal 0.0-2.5 [facility] Comment on above: Performed By: #### B FPR, GLUBF, BFCT, PROBF #### [address] [address] Eosinophil, Absolute 0.0 10 3/mcL Normal 0.0-0.7 [facility] Comment on above: Performed By: #### B FPR, GLUBF, BFCT, PROBF #### [address] [address] Eosinophils/100 WBC (Bld) 0.0 % Normal 0.0-6.0 [facility] Comment on above: Performed By: #### B FPR, GLUBF, BFCT, PROBF #### [address] [address] Lymphocyte, Absolute 1.3 10 3/mcL Normal 0.9-4.3 [facility] Comment on above: Performed By: #### B FPR, GLUBF, BFCT, PROBF #### [address] [address] Lymphocytes/100 WBC (Bld) 15.7 % Low 20.0-40.0 [facility] Comment on above: Performed By: #### B FPR, GLUBF, BFCT, PROBF #### [address] [address] Monocyte, Absolute 0.7 10 3/mcL Normal 0.1-1.4 [facility] Comment on above: Performed By: #### B FPR, GLUBF, BFCT, PROBF #### [address] [address] Monocytes/100 WBC (Bld) 8.6 % Normal 2.0-13.0 [facility] Comment on above: Performed By: #### B FPR, GLUBF, BFCT, PROBF #### [address] [address] Neutrophils/100 WBC (Bld) 74.7 % Normal 50.0-75.0 [facility] Comment on above: Performed By: #### B FPR, GLUBF, BFCT, PROBF #### [address] [address] .GFRon 11-16-2024 Estimated Glomerular Filtration Rate 14 ml/min/1.73sqm Normal [facility] Comment on above: Result Comment: [...] #### B FPR, GLUBF, BFCT, PROBF #### [address] [address] .NEUABSon 11-16-2024 Neutrophil, Absolute 6.2 10 3/mcL Normal 2.3-8.1 [facility] Comment on above: Performed By: #### B FPR, GLUBF, BFCT, PROBF #### [address] [address] BMPon 11-16-2024 BUN/Creatinine Ratio 2.7 ratio Low 10.0-22.0 [facility] Comment on above: Performed By: #### B FPR, GLUBF, BFCT, PROBF #### [address] [address] Calcium [Mass/Vol] 10.0 mg/dL Normal 8.7-10.4 [facility] Comment on above: Performed By: #### B FPR, GLUBF, BFCT, PROBF #### [address] [address] Chloride [Moles/Vol] 96 mmol/L Low 98-110 [facility] Comment on above: Performed By: #### B FPR, GLUBF, BFCT, PROBF #### [address] [address] CO2 [Moles/Vol] 26 mmol/L Normal 22-32 [facility] Comment on above: Performed By: #### B FPR, GLUBF, BFCT, PROBF #### [address] [address] Creatinine [Mass/Vol] 3.34 mg/dL High 0.50-1.20 [facility] Comment on above: Result Comment: Test ing performed on Pollen analyzer using enzymatic creatinine methodology. Performed By: #### B FPR, GLUBF, BFCT, PROBF #### [address] [address] Electrolyte Balance 9.0 mEq/L Normal 4.0-15.0 [facility] Comment on above: Performed By: #### B FPR, GLUBF, BFCT, PROBF #### [address] [address] Glucose [Mass/Vol] 94 mg/dL Normal 82-115 [facility] Comment on above: Performed By: #### B FPR, GLUBF, BFCT, PROBF #### [place] [address] Potassium [Moles/Vol] 4.2 mmol/L Normal 3.5-5.0 [facility] Comment on above: Performed By: #### B FPR, GLUBF, BFCT, PROBF #### [place] [address] Sodium [Moles/Vol] 131 mmol/L Low 136-145 [facility] Comment on above: Performed By: #### B FPR, GLUBF, BFCT, PROBF #### [place] [address] Urea nitrogen [Mass/Vol] 9.0 mg/dL Normal 8.0-22.0 [facility] Comment on above: Performed By: #### B FPR, GLUBF, BFCT, PROBF #### [place] [address] CBCon 11-16-2024 Erythrocyte distribution width (RBC) [Ratio] 16.3 % High 11.5-15.5 [facility] Comment on above: Performed By: #### B FPR, GLUBF, BFCT, PROBF #### [place] [address] Hematocrit (Bld) [Volume fraction] 33.6 % Low 34.0-46.0 [facility] Comment on above: Performed By: #### B FPR, GLUBF, BFCT, PROBF #### [place] [address] Hgb 10.7 G/dL Low 12.0-16.0 [facility] Comment on above: Performed By: #### B FPR, GLUBF, BFCT, PROBF #### [place] [id number] MCH (RBC) [Entitic mass] 28.5 pg Normal 27.0-33.0 [facility] Comment on above: Performed By: #### B FPR, GLUBF, BFCT, PROBF #### [address] [address] MCHC 32.0 G/dL Normal 32.0-36.0 [facility] Comment on above: Performed By: #### B FPR, GLUBF, BFCT, PROBF #### [address] [address] MCV (RBC) [Entitic vol] 89.0 fL Normal 80.0-99.0 [facility] Comment on above: Performed By: #### B FPR, GLUBF, BFCT, PROBF #### [place] [address] Platelet 424 10 3/mcL Normal 150-450 [facility] Comment on above: Performed By: #### B FPR, GLUBF, BFCT, PROBF #### [place] [address] Platelet mean volume (Bld) [Entitic vol] 7.4 fL Normal 6.6-10.5 [facility] Comment on above: Performed By: #### B FPR, GLUBF, BFCT, PROBF #### [place] [address] RBC 3.77 10 6/mcL Low 4.10-5.30 [facility] Comment on above: Performed By: #### B FPR, GLUBF, BFCT, PROBF #### [place] [address] WBC 8.4 10 3/mcL Normal 4.5-10.8 [facility] Comment on above: Performed By: #### B FPR, GLUBF, BFCT, PROBF #### [address] [address] .Auto Diffon 11-13-2024 Basophil, Absolute 0.2 10 3/mcL Normal 0.0-0.3 [facility] Comment on above: Performed By: #### B FPR, GLUBF, BFCT, PROBF #### [place] [id number] Basophils/100 WBC (Bld) 3.0 % High 0.0-2.5 [facility] Comment on above: Performed By: #### B FPR, GLUBF, BFCT, PROBF #### [address] [address] Eosinophil, Absolute 0.0 10 3/mcL Normal 0.0-0.7 [facility] Comment on above: Performed By: #### B FPR, GLUBF, BFCT, PROBF #### [address] [address] Eosinophils/100 WBC (Bld) 0.0 % Normal 0.0-6.0 [facility] Comment on above: Performed By: #### B FPR, GLUBF, BFCT, PROBF #### [address] [address] Lymphocyte, Absolute 1.7 10 3/mcL Normal 0.9-4.3 [facility] Comment on above: Performed By: #### B FPR, GLUBF, BFCT, PROBF #### [address] [address] Lymphocytes/100 WBC (Bld) 27.4 % Normal 20.0-40.0 [facility] Comment on above: Performed By: #### B FPR, GLUBF, BFCT, PROBF #### [address] [address] Monocyte, Absolute 0.7 10 3/mcL Normal 0.1-1.4 [facility] Comment on above: Performed By: #### B FPR, GLUBF, BFCT, PROBF #### [address] [address] Monocytes/100 WBC (Bld) 11.7 % Normal 2.0-13.0 [facility] Comment on above: Performed By: #### B FPR, GLUBF, BFCT, PROBF #### [address] [address] Neutrophils/100 WBC (Bld) 57.9 % Normal 50.0-75.0 [facility] Comment on above: Performed By: #### B FPR, GLUBF, BFCT, PROBF #### [address] [address] .GFRon 11-13-2024 Estimated Glomerular Filtration Rate 18 ml/min/1.73sqm Normal [facility] Comment on above: Result Comment: [...] #### B FPR, GLUBF, BFCT, PROBF #### [address] [address] .NEUABSon 11-13-2024 Neutrophil, Absolute 3.5 10 3/mcL Normal 2.3-8.1 [facility] Comment on above: Performed By: #### B FPR, GLUBF, BFCT, PROBF #### [address] [address] BMPon 11-13-2024 BUN/Creatinine Ratio 3.5 ratio Low 10.0-22.0 [facility] Comment on above: Performed By: #### B FPR, GLUBF, BFCT, PROBF #### [address] [address] Calcium [Mass/Vol] 9.9 mg/dL Normal 8.7-10.4 [facility] Comment on above: Performed By: #### B FPR, GLUBF, BFCT, PROBF #### [address] [address] Chloride [Moles/Vol] 98 mmol/L Normal 98-110 [facility] Comment on above: Performed By: #### B FPR, GLUBF, BFCT, PROBF #### [address] [address] CO2 [Moles/Vol] 27 mmol/L Normal 22-32 [facility] Comment on above: Performed By: #### B FPR, GLUBF, BFCT, PROBF #### [place] [address] Creatinine [Mass/Vol] 2.83 mg/dL High 0.50-1.20 [facility] Comment on above: Result Comment: Test ing performed on Pollen analyzer using enzymatic creatinine methodology. Performed By: #### B FPR, GLUBF, BFCT, PROBF #### [place] [address] Electrolyte Balance 9.0 mEq/L Normal 4.0-15.0 [facility] Comment on above: Performed By: #### B FPR, GLUBF, BFCT, PROBF #### [place] [address] Glucose [Mass/Vol] 83 mg/dL Normal 82-115 [facility] Comment on above: Performed By: #### B FPR, GLUBF, BFCT, PROBF #### [place] [address] Potassium [Moles/Vol] 4.0 mmol/L Normal 3.5-5.0 [facility] Comment on above: Performed By: #### B FPR, GLUBF, BFCT, PROBF #### [place] [address] Sodium [Moles/Vol] 134 mmol/L Low 136-145 [facility] Comment on above: Performed By: #### B FPR, GLUBF, BFCT, PROBF #### [place] [address] Urea nitrogen [Mass/Vol] 10.0 mg/dL Normal 8.0-22.0 [facility] Comment on above: Performed By: #### B FPR, GLUBF, BFCT, PROBF #### [place] [address] CBCon 11-13-2024 Erythrocyte distribution width (RBC) [Ratio] 16.3 % High 11.5-15.5 [facility] Comment on above: Performed By: #### B FPR, GLUBF, BFCT, PROBF #### [place] [address] Hematocrit (Bld) [Volume fraction] 31.5 % Low 34.0-46.0 [facility] Comment on above: Performed By: #### B FPR, GLUBF, BFCT, PROBF #### [place] [address] Hgb 10.1 G/dL Low 12.0-16.0 [facility] Comment on above: Performed By: #### B FPR, GLUBF, BFCT, PROBF #### [place] [address] MCH (RBC) [Entitic mass] 28.8 pg Normal 27.0-33.0 [facility] Comment on above: Performed By: #### B FPR, GLUBF, BFCT, PROBF #### [place] [address] MCHC 32.1 G/dL Normal 32.0-36.0 [facility] Comment on above: Performed By: #### B FPR, GLUBF, BFCT, PROBF #### [place] [address] MCV (RBC) [Entitic vol] 89.8 fL Normal 80.0-99.0 [facility] Comment on above: Performed By: #### B FPR, GLUBF, BFCT, PROBF #### [place] [address] Platelet 429 10 3/mcL Normal 150-450 [facility] Comment on above: Performed By: #### B FPR, GLUBF, BFCT, PROBF #### [place] [address] Platelet mean volume (Bld) [Entitic vol] 7.3 fL Normal 6.6-10.5 [facility] Comment on above: Performed By: #### B FPR, GLUBF, BFCT, PROBF #### [place] [address] RBC 3.51 10 6/mcL Low 4.10-5.30 [facility] Comment on above: Performed By: #### B FPR, GLUBF, BFCT, PROBF #### [address] [address] WBC 6.1 10 3/mcL Normal 4.5-10.8 [facility] Comment on above: Performed By: #### B FPR, GLUBF, BFCT, PROBF #### [address] [address] .Auto Diffon 11-11-2024 Basophil, Absolute 0.0 10 3/mcL Normal 0.0-0.3 [facility] Comment on above: Performed By: #### R BCP #### [address] [address] Basophils/100 WBC (Bld) 0.2 % Normal 0.0-2.5 [facility] Comment on above: Performed By: #### R BCP #### [address] [address] Eosinophil, Absolute 0.0 10 3/mcL Normal 0.0-0.7 [facility] Comment on above: Performed By: #### R BCP #### [address] [address] Eosinophils/100 WBC (Bld) 0.0 % Normal 0.0-6.0 [facility] Comment on above: Performed By: #### R BCP #### [address] [address] Lymphocyte, Absolute 1.6 10 3/mcL Normal 0.9-4.3 [facility] Comment on above: Performed By: #### R BCP #### [address] [address] Lymphocytes/100 WBC (Bld) 24.3 % Normal 20.0-40.0 [facility] Comment on above: Performed By: #### R BCP #### [address] [address] Monocyte, Absolute 0.8 10 3/mcL Normal 0.1-1.4 [facility] Comment on above: Performed By: #### R BCP #### [address] [address] Monocytes/100 WBC (Bld) 12.2 % Normal 2.0-13.0 [facility] Comment on above: Performed By: #### R BCP #### [address] [address] Neutrophils/100 WBC (Bld) 63.3 % Normal 50.0-75.0 [facility] Comment on above: Performed By: #### R BCP #### [address] [address] .GFRon 11-11-2024 Estimated Glomerular Filtration Rate 18 ml/min/1.73sqm Normal [facility] Comment on above: Result Comment: [...] results. Performed By: #### R BCP #### [address] [address] .NEUABSon 11-11-2024 Neutrophil, Absolute 4.2 10 3/mcL Normal 2.3-8.1 [facility] Comment on above: Performed By: #### R BCP #### [address] [address] BMPon 11-11-2024 BUN/Creatinine Ratio 4.7 ratio Low 10.0-22.0 [facility] Comment on above: Performed By: #### R BCP #### [address] [address] Calcium [Mass/Vol] 9.2 mg/dL Normal 8.7-10.4 [facility] Comment on above: Performed By: #### R BCP #### [address] [address] Chloride [Moles/Vol] 101 mmol/L Normal 98-110 [facility] Comment on above: Performed By: #### R BCP #### [address] [address] CO2 [Moles/Vol] 27 mmol/L Normal 22-32 [facility] Comment on above: Performed By: #### R BCP #### [place] [id number] Creatinine [Mass/Vol] 2.76 mg/dL High 0.50-1.20 [facility] Comment on above: Result Comment: Test ing performed on Pollen analyzer using enzymatic creatinine methodology. Performed By: #### R BCP #### [place] [id number] Electrolyte Balance 9.0 mEq/L Normal 4.0-15.0 [facility] Comment on above: Performed By: #### R BCP #### [place] [id number] Glucose [Mass/Vol] 91 mg/dL Normal 82-115 [facility] Comment on above: Performed By: #### R BCP #### [place] [id number] Potassium [Moles/Vol] 4.1 mmol/L Normal 3.5-5.0 [facility] Comment on above: Performed By: #### R BCP #### [place] [address] Sodium [Moles/Vol] 137 mmol/L Normal 136-145 [facility] Comment on above: Performed By: #### R BCP #### [place] [id number] Urea nitrogen [Mass/Vol] 13.0 mg/dL Normal 8.0-22.0 [facility] Comment on above: Performed By: #### R BCP #### [address] [address] CBCon 11-11-2024 Erythrocyte distribution width (RBC) [Ratio] 16.4 % High 11.5-15.5 [facility] Comment on above: Performed By: #### R BCP #### [place] [id number] Hematocrit (Bld) [Volume fraction] 29.6 % Low 34.0-46.0 [facility] Comment on above: Performed By: #### R BCP #### [place] [id number] Hgb 9.5 G/dL Low 12.0-16.0 [facility] Comment on above: Performed By: #### R BCP #### [place] [address] MCH (RBC) [Entitic mass] 28.8 pg Normal 27.0-33.0 [facility] Comment on above: Performed By: #### R BCP #### [place] [address] MCHC 32.0 G/dL Normal 32.0-36.0 [facility] Comment on above: Performed By: #### R BCP #### [place] [address] MCV (RBC) [Entitic vol] 90.1 fL Normal 80.0-99.0 [facility] Comment on above: Performed By: #### R BCP #### [place] [address] Platelet 430 10 3/mcL Normal 150-450 [facility] Comment on above: Performed By: #### R BCP #### [place] [address] Platelet mean volume (Bld) [Entitic vol] 7.1 fL Normal 6.6-10.5 [facility] Comment on above: Performed By: #### R BCP #### [place] [id number] RBC 3.28 10 6/mcL Low 4.10-5.30 [facility] Comment on above: Performed By: #### R BCP #### [place] [id number] WBC 6.7 10 3/mcL Normal 4.5-10.8 [facility] Comment on above: Performed By: #### R BCP #### [address] [address] .Auto Diffon 11-09-2024 Basophil, Absolute 0.1 10 3/mcL Normal 0.0-0.3 [facility] Comment on above: Performed By: #### H BSAG, HBSAB #### [address] [address] Basophils/100 WBC (Bld) 1.4 % Normal 0.0-2.5 [facility] Comment on above: Performed By: #### H BSAG, HBSAB #### [address] [address] Eosinophil, Absolute 0.0 10 3/mcL Normal 0.0-0.7 [facility] Comment on above: Performed By: #### H BSAG, HBSAB #### [address] [address] Eosinophils/100 WBC (Bld) 0.0 % Normal 0.0-6.0 [facility] Comment on above: Performed By: #### H BSAG, HBSAB #### [address] [address] Lymphocyte, Absolute 2.2 10 3/mcL Normal 0.9-4.3 [facility] Comment on above: Performed By: #### H BSAG, HBSAB #### [address] [address] Lymphocytes/100 WBC (Bld) 26.5 % Normal 20.0-40.0 [facility] Comment on above: Performed By: #### H BSAG, HBSAB #### [address] [address] Monocyte, Absolute 0.7 10 3/mcL Normal 0.1-1.4 [facility] Comment on above: Performed By: #### H BSAG, HBSAB #### [address] [address] Monocytes/100 WBC (Bld) 8.8 % Normal 2.0-13.0 [facility] Comment on above: Performed By: #### H BSAG, HBSAB #### [address] [address] Neutrophils/100 WBC (Bld) 63.3 % Normal 50.0-75.0 [facility] Comment on above: Performed By: #### H LOIS, HBSAB #### [address] [address] .GFRon 11-09-2024 Estimated Glomerular Filtration Rate 14 ml/min/1.73sqm Normal [facility] Comment on above: Result Comment: [...] Performed By: #### H BSAG, HBSAB #### [address] [address] .NEUABSon 11-09-2024 Neutrophil, Absolute 5.4 10 3/mcL Normal 2.3-8.1 [facility] Comment on above: Performed By: #### H BSAG, HBSAB #### [address] [address] BMPon 11-09-2024 BUN/Creatinine Ratio 7.8 ratio Low 10.0-22.0 [facility] Comment on above: Performed By: #### H BSAG, HBSAB #### [address] [address] Calcium [Mass/Vol] 9.6 mg/dL Normal 8.7-10.4 [facility] Comment on above: Performed By: #### H BSAG, HBSAB #### [address] [address] Chloride [Moles/Vol] 96 mmol/L Low 98-110 [facility] Comment on above: Performed By: #### H BSAG, HBSAB #### [address] [address] CO2 [Moles/Vol] 25 mmol/L Normal 22-32 [facility] Comment on above: Performed By: #### H BSAG, HBSAB #### [address] [address] Creatinine [Mass/Vol] 3.35 mg/dL High 0.50-1.20 [facility] Comment on above: Result Comment: Test ing performed on Pollen analyzer using enzymatic creatinine methodology. Performed By: #### H BSAG, HBSAB #### [address] [address] Electrolyte Balance 14.0 mEq/L Normal 4.0-15.0 [facility] Comment on above: Performed By: #### H BSAG, HBSAB #### [address] [address] Glucose [Mass/Vol] 83 mg/dL Normal 82-115 [facility] Comment on above: Performed By: #### H BSAG, HBSAB #### [address] [address] Potassium [Moles/Vol] 3.4 mmol/L Low 3.5-5.0 [facility] Comment on above: Performed By: #### H BSAG, HBSAB #### [address] [address] Sodium [Moles/Vol] 135 mmol/L Low 136-145 [facility] Comment on above: Performed By: #### H BSAG, HBSAB #### [address] [address] Urea nitrogen [Mass/Vol] 26.0 mg/dL High 8.0-22.0 [facility] Comment on above: Performed By: #### H BSAG, HBSAB #### [address] [address] CBCon 11-09-2024 Erythrocyte distribution width (RBC) [Ratio] 16.8 % High 11.5-15.5 [facility] Comment on above: Performed By: #### A CHUCK SANON #### [address] [address] Hematocrit (Bld) [Volume fraction] 32.8 % Low 34.0-46.0 [facility] Comment on above: Performed By: #### A CHUCK SANON #### [address] [address] Hgb 10.4 G/dL Low 12.0-16.0 [facility] Comment on above: Performed By: #### A CHUCK SANON #### [place] [id number] MCH (RBC) [Entitic mass] 28.8 pg Normal 27.0-33.0 [facility] Comment on above: Performed By: #### A CHUCK SANON #### [place] [address] MCHC 31.9 G/dL Low 32.0-36.0 [facility] Comment on above: Performed By: #### A CHUCK SANON #### [place] [address] MCV (RBC) [Entitic vol] 90.3 fL Normal 80.0-99.0 [facility] Comment on above: Performed By: #### A CHUCK SANON #### [place] [address] Platelet 408 10 3/mcL Normal 150-450 [facility] Comment on above: Performed By: #### A CHUCK SANON #### [place] [id number] Platelet mean volume (Bld) [Entitic vol] 7.5 fL Normal 6.6-10.5 [facility] Comment on above: Performed By: #### CHUCK YOUNGBLOOD #### [place] [id number] RBC 3.63 10 6/mcL Low 4.10-5.30 [facility] Comment on above: Performed By: #### CHUCK YOUNGBLOOD #### [place] [id number] WBC 8.5 10 3/mcL Normal 4.5-10.8 [facility] Comment on above: Performed By: #### A CHUCK SANON #### [address] [address] HFPon 11-09-2024 Bili Indirect 0.3 mg/dL Normal 0.1-10.0 [facility] Comment on above: Performed By: #### H BSAG, HBSAB #### [place] [address] Albumin Level 2.8 G/dL Low 3.2-4.8 [facility] Comment on above: Performed By: #### H BSAG, HBSAB #### [place] [id number] Albumin/Globulin [Mass ratio] 0.8 {ratio} Low 0.9-1.6 [facility] Comment on above: Performed By: #### H BSAG, HBSAB #### [place] [id number] ALP [Catalytic activity/Vol] 147 U/L High 38-126 [facility] Comment on above: Performed By: #### H BSAG, HBSAB #### [place] [id number] ALT [Catalytic activity/Vol] 19 U/L Normal 10-49 [facility] Comment on above: Performed By: #### H BSAG, HBSAB #### [place] [id number] AST [Catalytic activity/Vol] 24 U/L Normal 8-34 [facility] Comment on above: Performed By: #### H BSAG, HBSAB #### [place] [id number] Bili Direct 0.3 mg/dL Normal 0.0-0.4 [facility] Comment on above: Result Comment: Use of this assay is not recommended for patients undergoing treatment with eltrombopag due to the potential for falsely elevated results. Performed By: #### H BSAG, HBSAB #### [place] [address] Bili Total 0.60 mg/dL Normal 0.20-1.20 [facility] Comment on above: Result Comment: Use of this assay is not recommended for patients undergoing treatment with eltrombopag due to the potential for falsely elevated results. Performed By: #### H BSAG, HBSAB #### [address] [address] Globulin 3.4 G/dL Normal 2.5-4.2 [facility] Comment on above: Performed By: #### H BSAMaxx, HBSAB #### [place] [address] Total Protein 6.2 G/dL Normal 5.7-8.2 [facility] Comment on above: Performed By: #### H BSAMaxx, HBSAB #### [place] [address] .GFRon 11-06-2024 Estimated Glomerular Filtration Rate 18 ml/min/1.73sqm Normal [facility] Comment on above: Result Comment: [...] results. Performed By: #### T VINITA #### [address] [address] .Manual Diffon 11-06-2024 Bands 1.0 % Normal 0.0-5.0 [facility] Comment on above: Performed By: #### T VINITA #### [place] [address] Basophil %, Manual 1.0 % Normal 0.0-2.5 [facility] Comment on above: Performed By: #### T VINITA #### [address] [address] Basophil, Abs Manual 0.0 10 3/mcL Normal 0.0-0.3 [facility] Comment on above: Performed By: #### T ROPARTURO #### [address] [address] Eosinophil %, Manual 0.0 % Normal 0.0-6.0 [facility] Comment on above: Performed By: #### T ROPARTURO #### [address] [address] Eosinophil, Abs Manual 0.0 10 3/mcL Normal 0.0-0.7 [facility] Comment on above: Performed By: #### T ROPARTURO #### [place] [id number] Lymphocyte %, Manual 15.0 % Low 20.0-40.0 [facility] Comment on above: Performed By: #### T ROPARTURO #### [place] [id number] Lymphocyte, Abs Manual 1.1 10 3/mcL Normal 0.9-4.3 [facility] Comment on above: Performed By: #### T ROPARTURO #### [place] [id number] Metamyelocyte 1.0 % Normal [facility] Comment on above: Performed By: #### T ROPARTURO #### [address] [address] Monocyte %, Manual 8.0 % Normal 2.0-13.0 [facility] Comment on above: Performed By: #### T ROPHS #### [address] [address] Monocyte, Abs Manual 0.6 10 3/mcL Normal 0.1-1.4 [facility] Comment on above: Performed By: #### T ROPHS #### [address] [address] Neutrophil %, Manual 74.0 % Normal 50.0-75.0 [facility] Comment on above: Performed By: #### T ROPARTURO #### [address] [address] Neutrophil, Abs Manual 5.6 10 3/mcL Normal 2.3-8.1 [facility] Comment on above: Performed By: #### T VINITA #### [place] [address] Nucleated RBC 0.0 /100 WBC Normal [facility] Comment on above: Performed By: #### T VINITA #### [place] [address] .Morphon 11-06-2024 Anisocytosis Ql (Bld) 1+ Normal [facility] Comment on above: Performed By: #### T VINITA #### [place] [address] Platelet Estimate Normal Normal [facility] Comment on above: Performed By: #### T VINITA #### [place] [address] Polychrom 1+ Normal [facility] Comment on above: Performed By: #### T VINITA #### [address] 11-06-2024 BUN/Creatinine Ratio 11.6 ratio Normal 10.0-22.0 [facility] Comment on above: Performed By: #### T VINITA #### [place] [address] Calcium [Mass/Vol] 10.2 mg/dL Normal 8.7-10.4 [facility] Comment on above: Performed By: #### T VINITA #### [place] [address] Chloride [Moles/Vol] 97 mmol/L Low 98-110 [facility] Comment on above: Performed By: #### T VINITA #### [place] [id number] CO2 [Moles/Vol] 29 mmol/L Normal 22-32 [facility] Comment on above: Performed By: #### T VINITA #### [place] [address] Creatinine [Mass/Vol] 2.76 mg/dL High 0.50-1.20 [facility] Comment on above: Result Comment: Test ing performed on Pollen analyzer using enzymatic creatinine methodology. Performed By: #### T VINITA #### [place] [id number] Electrolyte Balance 10.0 mEq/L Normal 4.0-15.0 [facility] Comment on above: Performed By: #### T VINITA #### [place] [id number] Glucose [Mass/Vol] 115 mg/dL Normal 82-115 [facility] Comment on above: Performed By: #### T VINITA #### [place] [id number] Potassium [Moles/Vol] 3.8 mmol/L Normal 3.5-5.0 [facility] Comment on above: Performed By: #### T VINITA #### [place] [id number] Sodium [Moles/Vol] 136 mmol/L Normal 136-145 [facility] Comment on above: Performed By: #### T VINITA #### [place] [id number] Urea nitrogen [Mass/Vol] 32.0 mg/dL High 8.0-22.0 [facility] Comment on above: Performed By: #### T VINITA #### [address] [address] CBCon 11-06-2024 Erythrocyte distribution width (RBC) [Ratio] 16.7 % High 11.5-15.5 [facility] Comment on above: Performed By: #### T VINITA #### [address] [address] Hematocrit (Bld) [Volume fraction] 27.5 % Low 34.0-46.0 [facility] Comment on above: Performed By: #### T VINITA #### [address] [address] Hgb 8.8 G/dL Low 12.0-16.0 [facility] Comment on above: Performed By: #### T VINITA #### [place] [address] MCH (RBC) [Entitic mass] 29.1 pg Normal 27.0-33.0 [facility] Comment on above: Performed By: #### T VINITA #### [place] [address] MCHC 31.8 G/dL Low 32.0-36.0 [facility] Comment on above: Performed By: #### T VINITA #### [place] [address] MCV (RBC) [Entitic vol] 91.5 fL Normal 80.0-99.0 [facility] Comment on above: Performed By: #### T VINITA #### [place] [address] Platelet 321 10 3/mcL Normal 150-450 [facility] Comment on above: Performed By: #### T VINITA #### [place] [address] Platelet mean volume (Bld) [Entitic vol] 8.0 fL Normal 6.6-10.5 [facility] Comment on above: Performed By: #### T VINITA #### [place] [address] RBC 3.01 10 6/mcL Low 4.10-5.30 [facility] Comment on above: Performed By: #### T VINITA #### [place] [address] WBC 7.4 10 3/mcL Normal 4.5-10.8 [facility] Comment on above: Performed By: #### T VINITA #### [place] [address] .Auto Diffon 11-04-2024 Basophil, Absolute 0.1 10 3/mcL Normal 0.0-0.3 [facility] Comment on above: Performed By: #### B FPR, GLUBF, BFCT, PROBF #### [place] [address] Basophils/100 WBC (Bld) 1.0 % Normal 0.0-2.5 [facility] Comment on above: Performed By: #### B FPR, GLUBF, BFCT, PROBF #### [address] [address] Eosinophil, Absolute 0.0 10 3/mcL Normal 0.0-0.7 [facility] Comment on above: Performed By: #### B FPR, GLUBF, BFCT, PROBF #### [address] [address] Eosinophils/100 WBC (Bld) 0.0 % Normal 0.0-6.0 [facility] Comment on above: Performed By: #### B FPR, GLUBF, BFCT, PROBF #### [address] [address] Lymphocyte, Absolute 0.9 10 3/mcL Normal 0.9-4.3 [facility] Comment on above: Performed By: #### B FPR, GLUBF, BFCT, PROBF #### [address] [address] Lymphocytes/100 WBC (Bld) 9.4 % Low 20.0-40.0 [facility] Comment on above: Performed By: #### B FPR, GLUBF, BFCT, PROBF #### [address] [address] Monocyte, Absolute 0.7 10 3/mcL Normal 0.1-1.4 [facility] Comment on above: Performed By: #### B FPR, GLUBF, BFCT, PROBF #### [address] [address] Monocytes/100 WBC (Bld) 7.6 % Normal 2.0-13.0 [facility] Comment on above: Performed By: #### B FPR, GLUBF, BFCT, PROBF #### [address] [address] Neutrophils/100 WBC (Bld) 82.0 % High 50.0-75.0 [facility] Comment on above: Performed By: #### B FPR, GLUBF, BFCT, PROBF #### [address] [address] .GFRon 11-04-2024 Estimated Glomerular Filtration Rate 19 ml/min/1.73sqm Normal [facility] Comment on above: Result Comment: [...] #### B FPR, GLUBF, BFCT, PROBF #### [place] [address] .NEUABSon 11-04-2024 Neutrophil, Absolute 7.5 10 3/mcL Normal 2.3-8.1 [facility] Comment on above: Performed By: #### B FPR, GLUBF, BFCT, PROBF #### [place] [id number] BMPon 11-04-2024 BUN/Creatinine Ratio 11.5 ratio Normal 10.0-22.0 [facility] Comment on above: Performed By: #### B FPR, GLUBF, BFCT, PROBF #### [address] [address] Calcium [Mass/Vol] 10.2 mg/dL Normal 8.7-10.4 [facility] Comment on above: Performed By: #### B FPR, GLUBF, BFCT, PROBF #### [address] [address] Chloride [Moles/Vol] 98 mmol/L Normal 98-110 [facility] Comment on above: Performed By: #### B FPR, GLUBF, BFCT, PROBF #### [address] [address] CO2 [Moles/Vol] 32 mmol/L Normal 22-32 [facility] Comment on above: Performed By: #### B FPR, GLUBF, BFCT, PROBF #### [address] [address] Creatinine [Mass/Vol] 2.69 mg/dL High 0.50-1.20 [facility] Comment on above: Result Comment: Test ing performed on Pollen analyzer using enzymatic creatinine methodology. Performed By: #### B FPR, GLUBF, BFCT, PROBF #### [place] [address] Electrolyte Balance 11.0 mEq/L Normal 4.0-15.0 [facility] Comment on above: Performed By: #### B FPR, GLUBF, BFCT, PROBF #### [address] [address] Glucose [Mass/Vol] 127 mg/dL High 82-115 [facility] Comment on above: Performed By: #### B FPR, GLUBF, BFCT, PROBF #### [place] [address] Potassium [Moles/Vol] 4.3 mmol/L Normal 3.5-5.0 [facility] Comment on above: Performed By: #### B FPR, GLUBF, BFCT, PROBF #### [place] [id number] Sodium [Moles/Vol] 141 mmol/L Normal 136-145 [facility] Comment on above: Performed By: #### B FPR, GLUBF, BFCT, PROBF #### [address] [address] Urea nitrogen [Mass/Vol] 31.0 mg/dL High 8.0-22.0 [facility] Comment on above: Performed By: #### B FPR, GLUBF, BFCT, PROBF #### [address] [address] CBCon 11-04-2024 Erythrocyte distribution width (RBC) [Ratio] 16.5 % High 11.5-15.5 [facility] Comment on above: Performed By: #### B FPR, GLUBF, BFCT, PROBF #### [place] [address] Hematocrit (Bld) [Volume fraction] 30.4 % Low 34.0-46.0 [facility] Comment on above: Performed By: #### B FPR, GLUBF, BFCT, PROBF #### [place] [address] Hgb 9.7 G/dL Low 12.0-16.0 [facility] Comment on above: Performed By: #### B FPR, GLUBF, BFCT, PROBF #### [place] [address] MCH (RBC) [Entitic mass] 29.7 pg Normal 27.0-33.0 [facility] Comment on above: Performed By: #### B FPR, GLUBF, BFCT, PROBF #### [place] [address] MCHC 31.9 G/dL Low 32.0-36.0 [facility] Comment on above: Performed By: #### B FPR, GLUBF, BFCT, PROBF #### [place] [address] MCV (RBC) [Entitic vol] 93.1 fL Normal 80.0-99.0 [facility] Comment on above: Performed By: #### B FPR, GLUBF, BFCT, PROBF #### [place] [address] Platelet 327 10 3/mcL Normal 150-450 [facility] Comment on above: Performed By: #### B FPR, GLUBF, BFCT, PROBF #### [place] [address] Platelet mean volume (Bld) [Entitic vol] 7.3 fL Normal 6.6-10.5 [facility] Comment on above: Performed By: #### B FPR, GLUBF, BFCT, PROBF #### [place] [address] RBC 3.26 10 6/mcL Low 4.10-5.30 [facility] Comment on above: Performed By: #### B FPR, GLUBF, BFCT, PROBF #### [address] [address] WBC 9.2 10 3/mcL Normal 4.5-10.8 [facility] Comment on above: Performed By: #### B FPR, GLUBF, BFCT, PROBF #### [address] [address] XR CHEST 1 VIEWon 11-03-2024 XR CHEST [...] 11/03/2024 7:15:03 AM Ordering Provider: MARY Moore [facility] .Auto Diffon 11-02-2024 Basophil, Absolute 0.1 10 3/mcL Normal 0.0-0.3 [facility] Comment on above: Performed By: #### R BCP #### [address] [address] Basophils/100 WBC (Bld) 1.1 % Normal 0.0-2.5 [facility] Comment on above: Performed By: #### R BCP #### [address] [address] Eosinophil, Absolute 0.0 10 3/mcL Normal 0.0-0.7 [facility] Comment on above: Performed By: #### R BCP #### [address] [address] Eosinophils/100 WBC (Bld) 0.0 % Normal 0.0-6.0 [facility] Comment on above: Performed By: #### R BCP #### [address] [address] Lymphocyte, Absolute 1.4 10 3/mcL Normal 0.9-4.3 [facility] Comment on above: Performed By: #### R BCP #### [address] [address] Lymphocytes/100 WBC (Bld) 16.6 % Low 20.0-40.0 [facility] Comment on above: Performed By: #### R BCP #### [address] [address] Monocyte, Absolute 0.9 10 3/mcL Normal 0.1-1.4 [facility] Comment on above: Performed By: #### R BCP #### [address] [address] Monocytes/100 WBC (Bld) 10.8 % Normal 2.0-13.0 [facility] Comment on above: Performed By: #### R BCP #### [address] [address] Neutrophils/100 WBC (Bld) 71.5 % Normal 50.0-75.0 [facility] Comment on above: Performed By: #### R BCP #### [address] [address] .GFRon 11-02-2024 Estimated Glomerular Filtration Rate 14 ml/min/1.73sqm Normal [facility] Comment on above: Result Comment: [...] Performed By: #### A CHUCK SANON #### [address] [address] .NEUABSon 11-02-2024 Neutrophil, Absolute 6.1 10 3/mcL Normal 2.3-8.1 [facility] Comment on above: Performed By: #### R BCP #### [address] [address] BMPon 11-02-2024 BUN/Creatinine Ratio 12.2 ratio Normal 10.0-22.0 [facility] Comment on above: Performed By: #### R BCP #### [address] [address] Calcium [Mass/Vol] 10.6 mg/dL High 8.7-10.4 [facility] Comment on above: Performed By: #### R BCP #### [place] [id number] Chloride [Moles/Vol] 100 mmol/L Normal 98-110 [facility] Comment on above: Performed By: #### R BCP #### [address] [address] CO2 [Moles/Vol] 28 mmol/L Normal 22-32 [facility] Comment on above: Performed By: #### R BCP #### [address] [address] Creatinine [Mass/Vol] 3.37 mg/dL High 0.50-1.20 [facility] Comment on above: Result Comment: Test ing performed on Pollen analyzer using enzymatic creatinine methodology. Performed By: #### R BCP #### [place] [id number] Electrolyte Balance 11.0 mEq/L Normal 4.0-15.0 [facility] Comment on above: Performed By: #### R BCP #### [place] [id number] Glucose [Mass/Vol] 122 mg/dL High 82-115 [facility] Comment on above: Performed By: #### R BCP #### [place] [id number] Potassium [Moles/Vol] 4.1 mmol/L Normal 3.5-5.0 [facility] Comment on above: Performed By: #### R BCP #### [place] [id number] Sodium [Moles/Vol] 139 mmol/L Normal 136-145 [facility] Comment on above: Performed By: #### R BCP #### [place] [id number] Urea nitrogen [Mass/Vol] 41.0 mg/dL High 8.0-22.0 [facility] Comment on above: Performed By: #### R BCP #### [place] [id number] CBCon 11-02-2024 Erythrocyte distribution width (RBC) [Ratio] 15.8 % High 11.5-15.5 [facility] Comment on above: Performed By: #### R BCP #### [place] [id number] Hematocrit (Bld) [Volume fraction] 27.8 % Low 34.0-46.0 [facility] Comment on above: Performed By: #### R BCP #### [place] [id number] Hgb 9.0 G/dL Low 12.0-16.0 [facility] Comment on above: Performed By: #### R BCP #### [place] [id number] MCH (RBC) [Entitic mass] 29.7 pg Normal 27.0-33.0 [facility] Comment on above: Performed By: #### R BCP #### [place] [id number] MCHC 32.2 G/dL Normal 32.0-36.0 [facility] Comment on above: Performed By: #### R BCP #### [place] [id number] MCV (RBC) [Entitic vol] 92.0 fL Normal 80.0-99.0 [facility] Comment on above: Performed By: #### R BCP #### [place] [id number] Platelet 346 10 3/mcL Normal 150-450 [facility] Comment on above: Performed By: #### R BCP #### [place] [id number] Platelet mean volume (Bld) [Entitic vol] 7.5 fL Normal 6.6-10.5 [facility] Comment on above: Performed By: #### R BCP #### [place] [address] RBC 3.03 10 6/mcL Low 4.10-5.30 [facility] Comment on above: Performed By: #### R BCP #### [place] [address] WBC 8.5 10 3/mcL Normal 4.5-10.8 [facility] Comment on above: Performed By: #### R BCP #### [address] [address] .Auto Diffon 10-30-2024 Basophil, Absolute 0.0 10 3/mcL Normal 0.0-0.3 [facility] Comment on above: Performed By: #### H BSAG, HBSAB #### [address] [address] Basophils/100 WBC (Bld) 0.6 % Normal 0.0-2.5 [facility] Comment on above: Performed By: #### H BSAG, HBSAB #### [address] [address] Eosinophil, Absolute 0.0 10 3/mcL Normal 0.0-0.7 [facility] Comment on above: Performed By: #### H BSAG, HBSAB #### [address] [address] Eosinophils/100 WBC (Bld) 0.0 % Normal 0.0-6.0 [facility] Comment on above: Performed By: #### H BSAG, HBSAB #### [facility] [address] [place] [address] Lymphocyte, Absolute 1.4 10 3/mcL Normal 0.9-4.3 [facility] Comment on above: Performed By: #### H BSAG, HBSAB #### [facility] [address] [place] [address] Lymphocytes/100 WBC (Bld) 18.0 % Low 20.0-40.0 [facility] Comment on above: Performed By: #### H BSAG, HBSAB #### [facility] [address] [place] [address] Monocyte, Absolute 1.0 10 3/mcL Normal 0.1-1.4 [facility] Comment on above: Performed By: #### H BSAG, HBSAB #### [facility] [address] [place] [address] Monocytes/100 WBC (Bld) 12.3 % Normal 2.0-13.0 [facility] Comment on above: Performed By: #### H BSAG, HBSAB #### [facility] [address] [place] [address] Neutrophils/100 WBC (Bld) 69.1 % Normal 50.0-75.0 [facility] Comment on above: Performed By: #### H BSAG, HBSAB #### [address] [address] .GFRon 10-30-2024 Estimated Glomerular Filtration Rate 18 ml/min/1.73sqm Normal [facility] Comment on above: Result Comment: [...] Performed By: #### H BSAG, HBSAB #### [address] [address] .NEUABSon 10-30-2024 Neutrophil, Absolute 5.4 10 3/mcL Normal 2.3-8.1 [facility] Comment on above: Performed By: #### H BSAG, HBSAB #### [address] [address] BMPon 10-30-2024 BUN/Creatinine Ratio 9.0 ratio Low 10.0-22.0 [facility] Comment on above: Performed By: #### H BSAG, HBSAB #### [place] [id number] Calcium [Mass/Vol] 9.9 mg/dL Normal 8.7-10.4 [facility] Comment on above: Performed By: #### H BSAG, HBSAB #### [place] [id number] Chloride [Moles/Vol] 102 mmol/L Normal 98-110 [facility] Comment on above: Performed By: #### H BSAG, HBSAB #### [place] [id number] CO2 [Moles/Vol] 27 mmol/L Normal 22-32 [facility] Comment on above: Performed By: #### H BSAG, HBSAB #### [address] [address] Creatinine [Mass/Vol] 2.78 mg/dL High 0.50-1.20 [facility] Comment on above: Result Comment: Test ing performed on Pollen analyzer using enzymatic creatinine methodology. Performed By: #### H BSAG, HBSAB #### [address] [address] Electrolyte Balance 10.0 mEq/L Normal 4.0-15.0 [facility] Comment on above: Performed By: #### H BSAG, HBSAB #### [place] [id number] Glucose [Mass/Vol] 123 mg/dL High 82-115 [facility] Comment on above: Performed By: #### H BSAG, HBSAB #### [address] [address] Potassium [Moles/Vol] 3.9 mmol/L Normal 3.5-5.0 [facility] Comment on above: Performed By: #### H BSAG, HBSAB #### [address] [address] Sodium [Moles/Vol] 139 mmol/L Normal 136-145 [facility] Comment on above: Performed By: #### H BSAG, HBSAB #### [address] [address] Urea nitrogen [Mass/Vol] 25.0 mg/dL High 8.0-22.0 [facility] Comment on above: Performed By: #### H BSAG, HBSAB #### [address] [address] CBCon 10-30-2024 Erythrocyte distribution width (RBC) [Ratio] 16.6 % High 11.5-15.5 [facility] Comment on above: Performed By: #### H BSAG, HBSAB #### [address] [address] Hematocrit (Bld) [Volume fraction] 26.8 % Low 34.0-46.0 [facility] Comment on above: Performed By: #### H BSAG, HBSAB #### [address] [address] Hgb 8.7 G/dL Low 12.0-16.0 [facility] Comment on above: Performed By: #### H BSAG, HBSAB #### [address] [address] MCH (RBC) [Entitic mass] 30.1 pg Normal 27.0-33.0 [facility] Comment on above: Performed By: #### H BSAG, HBSAB #### [address] [address] MCHC 32.4 G/dL Normal 32.0-36.0 [facility] Comment on above: Performed By: #### H BSAG, HBSAB #### [address] [address] MCV (RBC) [Entitic vol] 92.9 fL Normal 80.0-99.0 [facility] Comment on above: Performed By: #### H BSAG, HBSAB #### [place] [id number] [place] [address] Platelet 340 10 3/mcL Normal 150-450 [facility] Comment on above: Performed By: #### H BSAG, HBSAB #### [place] [address] Platelet mean volume (Bld) [Entitic vol] 7.7 fL Normal 6.6-10.5 [facility] Comment on above: Performed By: #### H BSAG, HBSAB #### [place] [address] RBC 2.89 10 6/mcL Low 4.10-5.30 [facility] Comment on above: Performed By: #### H BSAG, HBSAB #### [place] [address] WBC 7.9 10 3/mcL Normal 4.5-10.8 [facility] Comment on above: Performed By: #### H BSAG, HBSAB #### [place] [address] BFPRon 10-29-2024 Body Fluid Path Review Normal [facility] Comment on above: Order Comment: [...] #### B FPR, GLUBF, BFCT, PROBF #### [place] [address] CDIFPCRon 10-29-2024 Clostridium difficile PCR Negative Normal Negative [facility] Comment on above: Order Comment: C. Di ff Indications->Acute C. Diff episode ??? Patient has had 3 or more watery stools in last 24 hours AND has S/S of acute episode (i.e. leukocytosis, abdominal pain, fever, nausea or vomiting) Result Comment: [place] s [id number] Performed By: #### R BCP #### [address] [address] Clostridium difficile PCR Int See Below Normal [facility] Comment on above: Order Comment: [...] assay. Performed By: #### R BCP #### [place] [address] .Auto Diffon 10-28-2024 Basophil, Absolute 0.0 10 3/mcL Normal 0.0-0.3 [facility] Comment on above: Performed By: #### T VINITA #### [address] [address] Basophils/100 WBC (Bld) 0.5 % Normal 0.0-2.5 [facility] Comment on above: Performed By: #### T VINITA #### [address] [address] Eosinophil, Absolute 0.0 10 3/mcL Normal 0.0-0.7 [facility] Comment on above: Performed By: #### T VINITA #### [address] [address] Eosinophils/100 WBC (Bld) 0.0 % Normal 0.0-6.0 [facility] Comment on above: Performed By: #### T ROPHS #### [address] [address] Lymphocyte, Absolute 1.4 10 3/mcL Normal 0.9-4.3 [facility] Comment on above: Performed By: #### T VINITA #### [address] [address] Lymphocytes/100 WBC (Bld) 18.9 % Low 20.0-40.0 [facility] Comment on above: Performed By: #### T VINITA #### [address] [address] Monocyte, Absolute 1.0 10 3/mcL Normal 0.1-1.4 [facility] Comment on above: Performed By: #### T VINITA #### [address] [address] Monocytes/100 WBC (Bld) 13.3 % High 2.0-13.0 [facility] Comment on above: Performed By: #### T VINITA #### [address] [address] Neutrophils/100 WBC (Bld) 67.3 % Normal 50.0-75.0 [facility] Comment on above: Performed By: #### T VINITA #### [place] [address] .GFRon 10-28-2024 Estimated Glomerular Filtration Rate 15 ml/min/1.73sqm Normal [facility] Comment on above: Result Comment: [...] results. Performed By: #### T VINITA #### [address] [address] .NEUABSon 10-28-2024 Neutrophil, Absolute 4.9 10 3/mcL Normal 2.3-8.1 [facility] Comment on above: Performed By: #### T VINITA #### [place] [id number] BFCTon 10-28-2024 Basophils/100 WBC (Bld) 1 % [facility] Comment on above: Performed By: #### B FPR, GLUBF, BFCT, PROBF #### [address] [address] Cells Counted BF 100 [facility] Comment on above: Performed By: #### B FPR, GLUBF, BFCT, PROBF #### [address] [address] Eosinophils/100 WBC (Bld) 1 % [facility] Comment on above: Performed By: #### B FPR, GLUBF, BFCT, PROBF #### [address] [address] Lymphocytes/100 WBC (Bld) 70 % [facility] Comment on above: Performed By: #### B FPR, GLUBF, BFCT, PROBF #### [address] [address] Mesothelial Cell % BF 8 % Normal [facility] Comment on above: Performed By: #### B FPR, GLUBF, BFCT, PROBF #### [address] [address] Mononuclear cell % BF 4 % [facility] Comment on above: Performed By: #### B FPR, GLUBF, BFCT, PROBF #### [address] [address] Neutrophils/100 WBC (Bld) 16 % [facility] MAIN Comment on above: Performed By: #### B FPR, GLUBF, BFCT, PROBF #### [address] [address] Body Fluid Source Pleural fluid [facility] MAIN Comment on above: Result Comment: Refe rence ranges have not been established for this body fluid. The test results must be integrated into the clinical context for interpretation. Performed By: #### B FPR, GLUBF, BFCT, PROBF #### [address] [address] Total Nucleated Cells 233 /mm3 [facility] MAIN Comment on above: Performed By: #### B FPR, GLUBF, BFCT, PROBF #### [address] [address] CBCon 10-28-2024 Erythrocyte distribution width (RBC) [Ratio] 16.0 % High 11.5-15.5 [facility] MAIN Comment on above: Performed By: #### T VINITA #### [place] [address] Hematocrit (Bld) [Volume fraction] 29.0 % Low 34.0-46.0 [facility] MAIN Comment on above: Performed By: #### T VINITA #### [place] [address] Hgb 9.4 G/dL Low 12.0-16.0 [facility] MAIN Comment on above: Performed By: #### T VINITA #### [place] [address] MCH (RBC) [Entitic mass] 29.7 pg Normal 27.0-33.0 [facility] MAIN Comment on above: Performed By: #### T VINITA #### [place] [address] MCHC 32.5 G/dL Normal 32.0-36.0 [facility] MAIN Comment on above: Performed By: #### T VINITA #### [place] [address] MCV (RBC) [Entitic vol] 91.5 fL Normal 80.0-99.0 [facility] MAIN Comment on above: Performed By: #### T VINITA #### [place] [address] Platelet 367 10 3/mcL Normal 150-450 [facility] Comment on above: Performed By: #### T VINITA #### [place] [id number] Platelet mean volume (Bld) [Entitic vol] 7.9 fL Normal 6.6-10.5 [facility] Comment on above: Performed By: #### T VINITA #### [place] [address] RBC 3.17 10 6/mcL Low 4.10-5.30 [facility] Comment on above: Performed By: #### T RANDALL #### [place] [address] WBC 7.3 10 3/mcL Normal 4.5-10.8 [facility] Comment on above: Performed By: #### T RANDALL #### [place] [id number] CMPon 10-28-2024 Albumin Level 2.6 G/dL Low 3.2-4.8 [facility] Comment on above: Performed By: #### B FPR, GLUBF, BFCT, PROBF #### [place] [address] Albumin/Globulin [Mass ratio] 0.8 {ratio} Low 0.9-1.6 [facility] Comment on above: Performed By: #### B FPR, GLUBF, BFCT, PROBF #### [place] [address] ALP [Catalytic activity/Vol] 172 U/L High 38-126 [facility] Comment on above: Performed By: #### B FPR, GLUBF, BFCT, PROBF #### [place] [address] ALT [Catalytic activity/Vol] 20 U/L Normal 10-49 [facility] Comment on above: Performed By: #### B FPR, GLUBF, BFCT, PROBF #### [place] [address] AST [Catalytic activity/Vol] 26 U/L Normal 8-34 [facility] Comment on above: Performed By: #### B FPR, GLUBF, BFCT, PROBF #### [place] [address] Bili Total 0.60 mg/dL Normal 0.20-1.20 [facility] Comment on above: Result Comment: Use of this assay is not recommended for patients undergoing treatment with eltrombopag due to the potential for falsely elevated results. Performed By: #### B FPR, GLUBF, BFCT, PROBF #### [place] [id number] BUN/Creatinine Ratio 12.4 ratio Normal 10.0-22.0 [facility] Comment on above: Performed By: #### B FPR, GLUBF, BFCT, PROBF #### [address] [address] Calcium [Mass/Vol] 10.3 mg/dL Normal 8.7-10.4 [facility] Comment on above: Performed By: #### B FPR, GLUBF, BFCT, PROBF #### [address] [address] Chloride [Moles/Vol] 101 mmol/L Normal 98-110 [facility] Comment on above: Performed By: #### B FPR, GLUBF, BFCT, PROBF #### [place] [id number] CO2 [Moles/Vol] 30 mmol/L Normal 22-32 [facility] Comment on above: Performed By: #### B FPR, GLUBF, BFCT, PROBF #### [address] [address] Creatinine [Mass/Vol] 3.15 mg/dL High 0.50-1.20 [facility] Comment on above: Result Comment: Test ing performed on Pollen analyzer using enzymatic creatinine methodology. Performed By: #### B FPR, GLUBF, BFCT, PROBF #### [place] [id number] Electrolyte Balance 9.0 mEq/L Normal 4.0-15.0 [facility] Comment on above: Performed By: #### B FPR, GLUBF, BFCT, PROBF #### [address] [address] Globulin 3.4 G/dL Normal 2.5-4.2 [facility] Comment on above: Performed By: #### B FPR, GLUBF, BFCT, PROBF #### [address] [address] Glucose [Mass/Vol] 110 mg/dL Normal 82-115 [facility] Comment on above: Performed By: #### B FPR, GLUBF, BFCT, PROBF #### [place] [id number] Potassium [Moles/Vol] 3.8 mmol/L Normal 3.5-5.0 [facility] Comment on above: Performed By: #### B FPR, GLUBF, BFCT, PROBF #### [place] [id number] Sodium [Moles/Vol] 140 mmol/L Normal 136-145 [facility] Comment on above: Performed By: #### B FPR, GLUBF, BFCT, PROBF #### [place] [address] Total Protein 6.0 G/dL Normal 5.7-8.2 [facility] Comment on above: Performed By: #### B FPR, GLUBF, BFCT, PROBF #### [place] [address] Urea nitrogen [Mass/Vol] 39.0 mg/dL High 8.0-22.0 [facility] Comment on above: Performed By: #### B FPR, GLUBF, BFCT, PROBF #### [place] [address] GLUBFon 10-28-2024 Glucose BF 125.0 mg/dL Normal [facility] Comment on above: Performed By: #### B FPR, GLUBF, BFCT, PROBF #### [place] [address] Glucose Body Fluid Spec Type Pleural fluid Normal [facility] Comment on above: Result Comment: The reference interval(s) and other method performance specifications have not been established for this body fluid. The test result must be integrated into the clinical content for interpretation. Performed By: #### B FPR, GLUBF, BFCT, PROBF #### [place] [address] PROBFon 10-28-2024 Protein BF 2.0 G/dL Normal [facility] Comment on above: Performed By: #### B FPR, GLUBF, BFCT, PROBF #### [address] [address] Protein BF Type Pleural fluid Normal [facility] Comment on above: Result Comment: The reference interval(s) and other method performance specifications have not been established for this body fluid. The test result must be integrated into the clinical content for interpretation. Performed By: #### B FPR, GLUBF, BFCT, PROBF #### [address] [address] XR CHEST 1 VIEWon 10-28-2024 XR CHEST [...] 12:22:21 PM Ordering Provider: SHERIDAN ODONNELL Normal [facility] FESon 10-27-2024 Iron [Mass/Vol] 25 ug/dL Low 50-170 [facility] Comment on above: Performed By: #### A CHUCK SANON #### [address] [address] Iron Sat 10 % Normal [facility] Comment on above: Performed By: #### A CHUCK SANON #### [address] [address] TIBC 255 mcg/dL Normal 250-500 [facility] Comment on above: Performed By: #### A CHUCK SANON #### [address] [address] XR CHEST 1 VIEWon 10-27-2024 XR CHEST [...] 12:11:44 PM Ordering Provider: SHERIDAN ODONNELL Normal [facility] .Auto Diffon 10-26-2024 Basophil, Absolute 0.0 10 3/mcL Normal 0.0-0.3 [facility] Comment on above: Performed By: #### A CHUCK SANON #### [address] [address] Basophils/100 WBC (Bld) 0.3 % Normal 0.0-2.5 [facility] Comment on above: Performed By: #### A CHUCK SANON #### [address] [address] Eosinophil, Absolute 0.0 10 3/mcL Normal 0.0-0.7 [facility] Comment on above: Performed By: #### A CHUCK SANON #### [address] [address] Eosinophils/100 WBC (Bld) 0.0 % Normal 0.0-6.0 [facility] Comment on above: Performed By: #### A CHUCK SANON #### [address] [address] Lymphocyte, Absolute 1.0 10 3/mcL Normal 0.9-4.3 [facility] Comment on above: Performed By: #### A MICK SANONGEL #### [address] [address] Lymphocytes/100 WBC (Bld) 16.4 % Low 20.0-40.0 [facility] Comment on above: Performed By: #### A TALITA ABSGEL #### [address] [address] Monocyte, Absolute 1.1 10 3/mcL Normal 0.1-1.4 [facility] Comment on above: Performed By: #### A MICK SANONGEL #### [address] [address] Monocytes/100 WBC (Bld) 16.7 % High 2.0-13.0 [facility] Comment on above: Performed By: #### A MICK SANONGEL #### [address] [address] Neutrophils/100 WBC (Bld) 66.6 % Normal 50.0-75.0 [facility] Comment on above: Performed By: #### A MICK SANONGEL #### [address] [address] .GFRon 10-26-2024 Estimated Glomerular Filtration Rate 13 ml/min/1.73sqm Normal [facility] Comment on above: Result Comment: [...] Performed By: #### A MICK SANONGEL #### [address] [address] .NEUABSon 10-26-2024 Neutrophil, Absolute 4.2 10 3/mcL Normal 2.3-8.1 [facility] Comment on above: Performed By: #### A CHUCK SANON #### [address] [address] CBCon 10-26-2024 Erythrocyte distribution width (RBC) [Ratio] 15.9 % High 11.5-15.5 [facility] Comment on above: Performed By: #### A CHUCK SANON #### [place] [address] Hematocrit (Bld) [Volume fraction] 28.2 % Low 34.0-46.0 [facility] Comment on above: Performed By: #### A CHUCK SANON #### [place] [address] Hgb 9.4 G/dL Low 12.0-16.0 [facility] Comment on above: Performed By: #### A CHUCK SANON #### [place] [address] MCH (RBC) [Entitic mass] 30.4 pg Normal 27.0-33.0 [facility] Comment on above: Performed By: #### CHUCK YOUNGBLOOD #### [place] [address] MCHC 33.2 G/dL Normal 32.0-36.0 [facility] Comment on above: Performed By: #### CHUCK YOUNGBLOOD #### [place] [address] MCV (RBC) [Entitic vol] 91.6 fL Normal 80.0-99.0 [facility] Comment on above: Performed By: #### CHUCK YOUNGBLOOD #### [place] [id number] Platelet 366 10 3/mcL Normal 150-450 [facility] Comment on above: Performed By: #### CHUCK YOUNGBLOOD #### [place] [id number] Platelet mean volume (Bld) [Entitic vol] 7.8 fL Normal 6.6-10.5 [facility] Comment on above: Performed By: #### A CHUCK SANON #### [address] [address] RBC 3.08 10 6/mcL Low 4.10-5.30 [facility] Comment on above: Performed By: #### A CHUCK SANON #### [address] [address] WBC 6.3 10 3/mcL Normal 4.5-10.8 [facility] Comment on above: Performed By: #### A CHUCK SANON #### [address] [address] CMPon 10-26-2024 Albumin Level 2.4 G/dL Low 3.2-4.8 [facility] Comment on above: Performed By: #### CHUCK YOUNGBLOOD #### [place] [address] Albumin/Globulin [Mass ratio] 0.8 {ratio} Low 0.9-1.6 [facility] Comment on above: Performed By: #### CHUCK YOUNGBLOOD #### [address] [address] ALP [Catalytic activity/Vol] 147 U/L High 38-126 [facility] Comment on above: Performed By: #### CHUCK YOUNGBLOOD #### [address] [address] ALT [Catalytic activity/Vol] 23 U/L Normal 10-49 [facility] Comment on above: Performed By: #### A CHUCK SANON #### [address] [address] AST [Catalytic activity/Vol] 29 U/L Normal 8-34 [facility] Comment on above: Performed By: #### CHUCK YOUNGBLOOD #### [address] [address] Bili Total 0.70 mg/dL Normal 0.20-1.20 [facility] Comment on above: Result Comment: Use of this assay is not recommended for patients undergoing treatment with eltrombopag due to the potential for falsely elevated results. Performed By: #### A CHUCK SANON #### [address] [address] BUN/Creatinine Ratio 12.6 ratio Normal 10.0-22.0 [facility] Comment on above: Performed By: #### A MICK SANONGEL #### [address] [address] Calcium [Mass/Vol] 10.1 mg/dL Normal 8.7-10.4 [facility] Comment on above: Performed By: #### A CHUCK SANON #### [address] [address] Chloride [Moles/Vol] 97 mmol/L Low 98-110 [facility] Comment on above: Performed By: #### A CHUCK SANON #### [address] [address] CO2 [Moles/Vol] 29 mmol/L Normal 22-32 [facility] Comment on above: Performed By: #### A CHUCK SANON #### [address] [address] Creatinine [Mass/Vol] 3.57 mg/dL High 0.50-1.20 [facility] Comment on above: Result Comment: Test ing performed on Pollen analyzer using enzymatic creatinine methodology. Performed By: #### A CHUCK SANON #### [place] [id number] Electrolyte Balance 13.0 mEq/L Normal 4.0-15.0 [facility] Comment on above: Performed By: #### A CHUCK SANON #### [address] [address] Globulin 3.2 G/dL Normal 2.5-4.2 [facility] Comment on above: Performed By: #### A CHUCK SANON #### [address] [address] Glucose [Mass/Vol] 116 mg/dL High 82-115 [facility] Comment on above: Performed By: #### A CHUCK SANON #### [facility] [address] [place] [address] Potassium [Moles/Vol] 4.0 mmol/L Normal 3.5-5.0 [facility] Comment on above: Performed By: #### A CHUCK SANON #### [address] [address] Sodium [Moles/Vol] 139 mmol/L Normal 136-145 [facility] Comment on above: Performed By: #### A CHUCK SANON #### [address] [address] Total Protein 5.6 G/dL Low 5.7-8.2 [facility] Comment on above: Performed By: #### A CHUCK SANON #### [address] [address] Urea nitrogen [Mass/Vol] 45.0 mg/dL High 8.0-22.0 [facility] Comment on above: Performed By: #### CHUCK YOUNGBLOOD #### [address] [address] XR SHOULDER MINIMUM 2 VIEWS RIGHTon 10-25-2024 [...] 10/25/2024 11:01:42 AM Ordering Provider: TRINH BANEGAS [facility] HBSABon 10-24-2024 Hep B Surf Ab 10.9 mIU/mL Normal >=10.0 [facility] Comment on above: Result Comment: [...] Performed By: #### H BSAG, HBSAB #### [place] [address] HBSAGon 10-24-2024 Hep B Surf Ag Non-Reactive Normal Non-Reactive [facility] Comment on above: Performed By: #### H BSAG, HBSAB #### [place] [address] .Auto Diffon 10-23-2024 Basophil, Absolute 0.0 10 3/mcL Normal 0.0-0.3 [facility] Comment on above: Performed By: #### B FPR, GLUBF, BFCT, PROBF #### [place] [address] Basophils/100 WBC (Bld) 0.6 % Normal 0.0-2.5 [facility] Comment on above: Performed By: #### B FPR, GLUBF, BFCT, PROBF #### [place] [address] Eosinophil, Absolute 0.0 10 3/mcL Normal 0.0-0.7 [facility] Comment on above: Performed By: #### B FPR, GLUBF, BFCT, PROBF #### [place] [address] Eosinophils/100 WBC (Bld) 0.0 % Normal 0.0-6.0 [facility] Comment on above: Performed By: #### B FPR, GLUBF, BFCT, PROBF #### [facility] [address] [place], [place] [address] Lymphocyte, Absolute 1.3 10 3/mcL Normal 0.9-4.3 [facility] Comment on above: Performed By: #### B FPR, GLUBF, BFCT, PROBF #### [address] [address] Lymphocytes/100 WBC (Bld) 23.7 % Normal 20.0-40.0 [facility] Comment on above: Performed By: #### B FPR, GLUBF, BFCT, PROBF #### [address] [address] Monocyte, Absolute 1.1 10 3/mcL Normal 0.1-1.4 [facility] Comment on above: Performed By: #### B FPR, GLUBF, BFCT, PROBF #### [address] [address] Monocytes/100 WBC (Bld) 18.6 % High 2.0-13.0 [facility] Comment on above: Performed By: #### B FPR, GLUBF, BFCT, PROBF #### [address] [address] Neutrophils/100 WBC (Bld) 57.1 % Normal 50.0-75.0 [facility] Comment on above: Performed By: #### B FPR, GLUBF, BFCT, PROBF #### [address] [address] .GFRon 10-23-2024 Estimated Glomerular Filtration Rate 17 ml/min/1.73sqm Normal [facility] Comment on above: Result Comment: [...] #### B FPR, GLUBF, BFCT, PROBF #### [place] [address] .NEUABSon 10-23-2024 Neutrophil, Absolute 3.2 10 3/mcL Normal 2.3-8.1 [facility] Comment on above: Performed By: #### B FPR, GLUBF, BFCT, PROBF #### [place] [address] CBCon 10-23-2024 Erythrocyte distribution width (RBC) [Ratio] 16.1 % High 11.5-15.5 [facility] Comment on above: Performed By: #### B FPR, GLUBF, BFCT, PROBF #### [place] [address] Hematocrit (Bld) [Volume fraction] 26.9 % Low 34.0-46.0 [facility] Comment on above: Performed By: #### B FPR, GLUBF, BFCT, PROBF #### [place] [address] Hgb 8.8 G/dL Low 12.0-16.0 [facility] Comment on above: Performed By: #### B FPR, GLUBF, BFCT, PROBF #### [place] [address] MCH (RBC) [Entitic mass] 30.1 pg Normal 27.0-33.0 [facility] Comment on above: Performed By: #### B FPR, GLUBF, BFCT, PROBF #### [place] [address] MCHC 32.9 G/dL Normal 32.0-36.0 [facility] Comment on above: Performed By: #### B FPR, GLUBF, BFCT, PROBF #### [place] [address] MCV (RBC) [Entitic vol] 91.6 fL Normal 80.0-99.0 [facility] Comment on above: Performed By: #### B FPR, GLUBF, BFCT, PROBF #### [address] [address] Platelet 379 10 3/mcL Normal 150-450 [facility] Comment on above: Performed By: #### B FPR, GLUBF, BFCT, PROBF #### [address] [address] Platelet mean volume (Bld) [Entitic vol] 7.8 fL Normal 6.6-10.5 [facility] Comment on above: Performed By: #### B FPR, GLUBF, BFCT, PROBF #### [address] [address] RBC 2.93 10 6/mcL Low 4.10-5.30 [facility] Comment on above: Performed By: #### B FPR, GLUBF, BFCT, PROBF #### [address] [address] WBC 5.7 10 3/mcL Normal 4.5-10.8 [facility] Comment on above: Performed By: #### B FPR, GLUBF, BFCT, PROBF #### [address] [address] CMPon 10-23-2024 Albumin Level 2.3 G/dL Low 3.2-4.8 [facility] Comment on above: Performed By: #### B FPR, GLUBF, BFCT, PROBF #### [address] [address] Albumin/Globulin [Mass ratio] 0.7 {ratio} Low 0.9-1.6 [facility] Comment on above: Performed By: #### B FPR, GLUBF, BFCT, PROBF #### [address] [address] ALP [Catalytic activity/Vol] 148 U/L High 38-126 [facility] Comment on above: Performed By: #### B FPR, GLUBF, BFCT, PROBF #### [address] [address] ALT [Catalytic activity/Vol] 29 U/L Normal 10-49 [facility] Comment on above: Performed By: #### B FPR, GLUBF, BFCT, PROBF #### [address] [address] AST [Catalytic activity/Vol] 36 U/L High 8-34 [facility] Comment on above: Performed By: #### B FPR, GLUBF, BFCT, PROBF #### [place] [address] Bili Total 0.80 mg/dL Normal 0.20-1.20 [facility] Comment on above: Result Comment: Use of this assay is not recommended for patients undergoing treatment with eltrombopag due to the potential for falsely elevated results. Performed By: #### B FPR, GLUBF, BFCT, PROBF #### [place] [address] BUN/Creatinine Ratio 10.0 ratio Normal 10.0-22.0 [facility] Comment on above: Performed By: #### B FPR, GLUBF, BFCT, PROBF #### [place] [id number] Calcium [Mass/Vol] 8.9 mg/dL Normal 8.7-10.4 [facility] Comment on above: Performed By: #### B FPR, GLUBF, BFCT, PROBF #### [address] [address] Chloride [Moles/Vol] 100 mmol/L Normal 98-110 [facility] Comment on above: Performed By: #### B FPR, GLUBF, BFCT, PROBF #### [place] [id number] CO2 [Moles/Vol] 27 mmol/L Normal 22-32 [facility] Comment on above: Performed By: #### B FPR, GLUBF, BFCT, PROBF #### [place] [id number] Creatinine [Mass/Vol] 2.90 mg/dL High 0.50-1.20 [facility] Comment on above: Result Comment: Test ing performed on Pollen analyzer using enzymatic creatinine methodology. Performed By: #### B FPR, GLUBF, BFCT, PROBF #### [address] [address] Electrolyte Balance 13.0 mEq/L Normal 4.0-15.0 [facility] Comment on above: Performed By: #### B FPR, GLUBF, BFCT, PROBF #### [address] [address] Globulin 3.2 G/dL Normal 2.5-4.2 [facility] Comment on above: Performed By: #### B FPR, GLUBF, BFCT, PROBF #### [address] [address] Glucose [Mass/Vol] 105 mg/dL Normal 82-115 [facility] Comment on above: Performed By: #### B FPR, GLUBF, BFCT, PROBF #### [address] [address] Potassium [Moles/Vol] 4.0 mmol/L Normal 3.5-5.0 [facility] Comment on above: Performed By: #### B FPR, GLUBF, BFCT, PROBF #### [address] [address] Sodium [Moles/Vol] 140 mmol/L Normal 136-145 [facility] Comment on above: Performed By: #### B FPR, GLUBF, BFCT, PROBF #### [address] [address] Total Protein 5.5 G/dL Low 5.7-8.2 [facility] Comment on above: Performed By: #### B FPR, GLUBF, BFCT, PROBF #### [address] [address] Urea nitrogen [Mass/Vol] 29.0 mg/dL High 8.0-22.0 [facility] Comment on above: Performed By: #### B FPR, GLUBF, BFCT, PROBF #### [address] [address] PHOSon 10-23-2024 Phosphate [Mass/Vol] 3.0 mg/dL Normal 2.4-5.1 [facility] Comment on above: Performed By: #### H BSAG, HBSAB #### [place] [address] .GFRon 10-22-2024 Estimated Glomerular Filtration Rate 39 ml/min/1.73sqm Normal [facility] Comment on above: Result Comment: [...] Performed By: #### H LOIS, HBSAB #### [place] [address] .Manual Diffon 10-22-2024 Bands 1.0 % Normal 0.0-5.0 [facility] Comment on above: Performed By: #### A CHUCK SANON #### [place] [address] Basophil %, Manual 0.0 % Normal 0.0-2.5 [facility] Comment on above: Performed By: #### A MICK SANONGEL #### [place] [address] Basophil, Abs Manual 0.0 10 3/mcL Normal 0.0-0.3 [facility] Comment on above: Performed By: #### A TALITA ABSGEL #### [place] [address] Eosinophil %, Manual 0.0 % Normal 0.0-6.0 [facility] Comment on above: Performed By: #### A CHUCK SANON #### [place] [address] Eosinophil, Abs Manual 0.0 10 3/mcL Normal 0.0-0.7 [facility] Comment on above: Performed By: #### A TALITA ABSGEL #### [address] [address] Lymphocyte %, Manual 31.0 % Normal 20.0-40.0 [facility] Comment on above: Performed By: #### A TALITA ABSGEL #### [address] [address] Lymphocyte, Abs Manual 1.7 10 3/mcL Normal 0.9-4.3 [facility] Comment on above: Performed By: #### A TALITA ABSGEL #### [address] [address] Monocyte %, Manual 11.0 % Normal 2.0-13.0 [facility] Comment on above: Performed By: #### A TALITA ABSGEL #### [address] [address] Monocyte, Abs Manual 0.6 10 3/mcL Normal 0.1-1.4 [facility] Comment on above: Performed By: #### A TALITA ABSGEL #### [address] [address] Neutrophil %, Manual 57.0 % Normal 50.0-75.0 [facility] Comment on above: Performed By: #### A TALITA ABSGEL #### [address] [address] Neutrophil, Abs Manual 3.1 10 3/mcL Normal 2.3-8.1 [facility] Comment on above: Performed By: #### A TALITA ABSMARJAN #### [address] [address] Nucleated RBC 0.0 /100 WBC Normal [facility] Comment on above: Performed By: #### A MICK SANONGEL #### [address] [address] .Morphon 10-22-2024 Basophilic stippling LM Ql (Bld) 1+ Normal [facility] Comment on above: Performed By: #### A CHUCK SANON #### [address] [address] Platelet Clumps Few Normal [facility] Comment on above: Performed By: #### A CHUCK SANON #### [address] [address] Platelet Estimate Normal Normal [facility] Comment on above: Performed By: #### A CHUCK SANON #### [address] [address] Polychrom 1+ Normal [facility] Comment on above: Performed By: #### A CHUCK SANON #### [address] [address] CBCon 10-22-2024 Hematocrit (Bld) [Volume fraction] 27.3 % Low 34.0-46.0 [facility] Comment on above: Result Comment: Refe rence range changed due to change in patient's sex at 10:19:37. Normal Low changed from 40.0 to 34.0. Normal High changed from 52.0 to 46.0. Result flag not changed. Performed By: #### A CHUCK SANON #### [address] [address] Hgb 9.2 G/dL Low 12.0-16.0 [facility] Comment on above: Result Comment: Refe rence range changed due to change in patient's sex at 10:19:37. Normal Low changed from 13.0 to 12.0. Normal High changed from 17.5 to 16.0. Result flag not changed. Performed By: #### A CHUCK SANON #### [address] [address] MCV (RBC) [Entitic vol] 90.3 fL Normal 80.0-99.0 [facility] Comment on above: Result Comment: Refe rence range changed due to change in patient's sex at 10:19:37. Normal Low changed from 81.0 to 80.0. Normal High changed from 100.0 to 99.0. Result flag not changed. Performed By: #### A CHUCK SANON #### [address] [address] Platelet mean volume (Bld) [Entitic vol] 7.4 fL Normal 6.6-10.5 [facility] Comment on above: Result Comment: Refe rence range changed due to change in patient's sex at 10:19:37. Normal Low changed from 6.4 to 6.6. Result flag not changed. Performed By: #### A CHUCK SANON #### [address] [address] RBC 3.03 10 6/mcL Low 4.10-5.30 [facility] Comment on above: Result Comment: Refe rence range changed due to change in patient's sex at 10:19:37. Normal Low changed from 4.50 to 4.10. Normal High changed from 6.00 to 5.30. Result flag not changed. Performed By: #### A CHUCK SANON #### [address] [address] Erythrocyte distribution width (RBC) [Ratio] 16.2 % High 11.5-15.5 [facility] Comment on above: Performed By: #### A CHUCK SANON #### [address] [address] MCH (RBC) [Entitic mass] 30.4 pg Normal 27.0-33.0 [facility] Comment on above: Performed By: #### A CHUCK SANON #### [address] [address] MCHC 33.6 G/dL Normal 32.0-36.0 [facility] Comment on above: Performed By: #### A CHUCK SANON #### [address] [address] Platelet 421 10 3/mcL Normal 150-450 [facility] Comment on above: Performed By: #### CHUCK YOUNGBLOOD #### [address] [address] WBC 5.4 10 3/mcL Normal 4.5-10.8 [facility] Comment on above: Performed By: #### CHUCK YOUNGBLOOD #### [address] [address] CMPon 10-22-2024 ALT [Catalytic activity/Vol] 28 U/L Normal 10-49 [facility] Comment on above: Result Comment: Refe rence range changed due to change in patient's sex at 10:19:37. Normal Low changed from 12 to 10. Normal High changed from 55 to 49. Result flag not changed. Performed By: #### H BSAG, HBSAB #### [place] [id number] Creatinine [Mass/Vol] 1.84 mg/dL High 0.50-1.20 [facility] Comment on above: Result Comment: Test ing performed on Pollen analyzer using enzymatic creatinine methodology. Reference range changed due to change in patient's sex at 10:19:37. Normal Low changed from 0.60 to 0.50. Normal High changed from 1.40 to 1.20. Result flag not changed. Performed By: #### H BSAG, HBSAB #### [place] [id number] Albumin Level 2.4 G/dL Low 3.2-4.8 [facility] Comment on above: Performed By: #### H BSAG, HBSAB #### [place] [id number] Albumin/Globulin [Mass ratio] 0.8 {ratio} Low 0.9-1.6 [facility] Comment on above: Performed By: #### H BSAG, HBSAB #### [address] [address] ALP [Catalytic activity/Vol] 145 U/L High 38-126 [facility] Comment on above: Performed By: #### H BSAG, HBSAB #### [place] [id number] AST [Catalytic activity/Vol] 40 U/L High 8-34 [facility] Comment on above: Performed By: #### H BSAG, HBSAB #### [place] [id number] Bili Total 1.10 mg/dL Normal 0.20-1.20 [facility] Comment on above: Result Comment: Use of this assay is not recommended for patients undergoing treatment with eltrombopag due to the potential for falsely elevated results. Performed By: #### H BSAG, HBSAB #### [place] [id number] BUN/Creatinine Ratio 7.6 ratio Low 10.0-22.0 [facility] Comment on above: Performed By: #### H BSAG, HBSAB #### [place] [id number] Calcium [Mass/Vol] 8.7 mg/dL Normal 8.7-10.4 [facility] Comment on above: Performed By: #### H BSAG, HBSAB #### [place] [id number] Chloride [Moles/Vol] 100 mmol/L Normal 98-110 [facility] Comment on above: Performed By: #### H BSAG, HBSAB #### [place] 1899710 CO2 [Moles/Vol] 29 mmol/L Normal 22-32 [facility] Comment on above: Performed By: #### H BSAG, HBSAB #### [place] 1899710 Electrolyte Balance 12.0 mEq/L Normal 4.0-15.0 [facility] Comment on above: Performed By: #### H BSAG, HBSAB #### [place] [id number] Globulin 3.2 G/dL Normal 2.5-4.2 [facility] Comment on above: Performed By: #### H BSAG, HBSAB #### [place] 1899710 Glucose [Mass/Vol] 92 mg/dL Normal 82-115 [facility] Comment on above: Performed By: #### H BSAG, HBSAB #### [place] [id number] Potassium [Moles/Vol] 4.0 mmol/L Normal 3.5-5.0 [facility] Comment on above: Performed By: #### H BSAG, HBSAB #### [address] [address] Sodium [Moles/Vol] 141 mmol/L Normal 136-145 [facility] Comment on above: Performed By: #### H BSAG, HBSAB #### [address] [address] Total Protein 5.6 G/dL Low 5.7-8.2 [facility] Comment on above: Performed By: #### H BSAG, HBSAB #### [address] [address] Urea nitrogen [Mass/Vol] 14.0 mg/dL Normal 8.0-22.0 [facility] Comment on above: Performed By: #### H BSAG, HBSAB #### [address] [address] MGon 10-22-2024 Magnesium [Mass/Vol] 1.9 mg/dL Normal 1.6-2.4 [facility] Comment on above: Performed By: #### H BSAG, HBSAB #### [address] [address] PHOSon 10-22-2024 Phosphate [Mass/Vol] 3.4 mg/dL Normal 2.4-5.1 [facility] Comment on above: Performed By: #### H BSAG, HBSAB #### [address] [address] XR CHEST 1 VIEWon 10-22-2024 XR CHEST [...] Sign Date: 10/22/2024 2:47:56 AM Ordering Provider: [facility] XR ENTERIC TUBE PLACEMENTon 10-22-2024 XR ENTERIC [...] Sign Date: 10/22/2024 5:08:34 AM Ordering Provider: [facility] CBC W Auto Differential pane l (Bld)on 10-21-2024 Basophils (Bld) [#/Vol] 0.03 x10*3/uL Normal 0.00-0.10 [facility] Comment on above: Performed By: #### 5 7021-8 ####AYDEE CAMILOMOTZER L ([id number])[facility] ([facility])[id number] [place] [address] Basophils/100 WBC (Bld) 0.5 % Normal 0.0-2.0 [facility] Comment on above: Performed By: #### 5 7021-8 ####AYDEE SCHMOTZER L ([id number])[facility] ([facility])[address] [place] [address] Eosinophils (Bld) [#/Vol] 0.02 x10*3/uL Normal 0.00-0.70 [facility] Comment on above: Performed By: #### 5 7021-8 ####AYDEE SCHMOTZER L ([id number])[facility] ([facility])[address] [place] [address] Eosinophils/100 WBC (Bld) 0.3 % Normal 0.0-6.0 [facility] Comment on above: Performed By: #### 5 7021-8 ####AYDEE Bruce ([id number])[facility] ([facility])[id number] [place] [address] Erythrocyte distribution width (RBC) [Ratio] 16.9 % High 11.5-14.5 [facility] Comment on above: Performed By: #### 5 7021-8 ####AYDEE Bruce ([id number])[facility] ([facility])[id number] [place] [address] Hematocrit (Bld) [Volume fraction] 29.2 % Low 36.0-46.0 [facility] Comment on above: Performed By: #### 5 7021-8 ####AYDEE Bruce ([id number])[facility] ([facility])[id number] [place] [address] Hemoglobin (Bld) [Mass/Vol] 8.6 g/dL Low 12.0-16.0 [facility] Comment on above: Performed By: #### 5 7021-8 ####AYDEE Bruce ([id number])[facility] ([facility])[address] [place] [address] Immature granulocytes (Bld) [#/Vol] 0.04 x10*3/uL Normal 0.00-0.70 [facility] Comment on above: Performed By: #### 5 7021-8 ####AYDEE Bruce ([id number])[facility] ([facility])[id number] [place] [address] Immature granulocytes/100 WBC (Bld) 0.7 % Normal 0.0-0.9 [facility] Comment on above: Result Comment: Doris ture Granulocyte Count (IG) includes promyelocytes, myelocytes and metamyelocytes but does not include bands. Percent differential counts (%) should be interpreted in the context of the absolute cell counts (cells/UL). Performed By: #### 5 7021-8 ####AYDEE Bruce ([id number])[facility] ([facility])[address] [place] [address] Lymphocytes (Bld) [#/Vol] 1.10 x10*3/uL Low 1.20-4.80 [facility] Comment on above: Performed By: #### 5 7021-8 ####AYDEE Bruce ([id number])[facility] ([facility])[address] [place] [address] Lymphocytes/100 WBC (Bld) 18.2 % Normal 13.0-44.0 [facility] Comment on above: Performed By: #### 5 7021-8 ####AYDEE Bruce ([id number])[facility] ([facility])[id number] [place] [address] MCH (RBC) [Entitic mass] 29.2 pg Normal 26.0-34.0 [facility] Comment on above: Performed By: #### 5 7021-8 ####AYDEE Bruce ([id number])[facility] ([facility])[address] [place] [address] MCHC (RBC) [Mass/Vol] 29.5 g/dL Low 32.0-36.0 [facility] Comment on above: Performed By: #### 5 7021-8 ####AYDEE Bruce ([id number])[facility] ([facility])[address] [place] [address] MCV (RBC) [Entitic vol] 99 fL Normal 80-100 [facility] Comment on above: Performed By: #### 5 7021-8 ####AYDEE Bruce ([id number])[facility] ([facility])[address] [place] [address] Monocytes (Bld) [#/Vol] 1.15 x10*3/uL High 0.10-1.00 [facility] Comment on above: Performed By: #### 5 7021-8 ####AYDEE Bruce ([id number])[facility] ([facility])[address] [place] [address] Monocytes/100 WBC (Bld) 19.0 % Normal 2.0-10.0 [facility] Comment on above: Performed By: #### 5 7021-8 ####AYDEE Bruce ([id number])[facility] ([facility])[address] [place] [address] Neutrophils (Bld) [#/Vol] 3.72 x10*3/uL Normal 1.20-7.70 [facility] Comment on above: Result Comment: Perc ent differential counts (%) should be interpreted in the context of the absolute cell counts (cells/uL). Performed By: #### 5 7021-8 ####AYDEE Bruce ([id number])[facility] ([facility])[address] [place] [address] Neutrophils/100 WBC (Bld) 61.3 % Normal 40.0-80.0 [facility] Comment on above: Performed By: #### 5 7021-8 ####AYDEE Bruce ([id number])[facility] ([facility])[address] [place] [address] Nucleated RBC/100 WBC (Bld) [Ratio] 0.0 /100 WBCs Normal 0.0-0.0 [facility] Comment on above: Performed By: #### 5 7021-8 ####AYDEE Bruce ([id number])[facility] ([facility])[address] [place] [address] Platelets (Bld) [#/Vol] 418 x10*3/uL Normal 150-450 [facility] Comment on above: Performed By: #### 5 7021-8 ####AYDEE Bruce ([id number])[facility] ([facility])[address] [place] [address] RBC (Bld) [#/Vol] 2.95 x10*6/uL Low 4.00-5.20 [facility] Comment on above: Performed By: #### 5 7021-8 ####AYDEE Bruce ([id number])[facility] ([facility])[address] [place] [address] WBC (Bld) [#/Vol] 6.1 x10*3/uL Normal 4.4-11.3 [facility] Comment on above: Performed By: #### 5 7021-8 ####AYDEE Bruce ([id number])[facility] ([facility])[address] [place] [address] Glucose Test strip manual (B ld) [Mass/Vol]on 10-21-2024 Glucose [Mass/Vol] 101 mg/dL High 74-99 [facility] Comment on above: Performed By: #### 2 341-6 ####AYDEE Bruce ([id number])[facility] ([facility])[address] [place] [address] Glucose [Mass/Vol] 121 mg/dL High 74-99 [facility] Comment on above: Performed By: #### 2 341-6 ####AYDEE Bruce ([id number])[facility] ([facility])[address] [place] [address] Magnesiumon 10-21-2024 Magnesium [Mass/Vol] 2.16 mg/dL Normal 1.60-2.40 [facility] Comment on above: Performed By: #### 1 9123-9 ####AYDEE Bruce ([id number])[facility] ([facility])[address] [place] [address] Renal function 2000 panelon 10-21-2024 Albumin BCP dye [Mass/Vol] 2.9 g/dL Low 3.4-5.0 [facility] Comment on above: Performed By: #### 2 4362-6 ####AYDEE Bruce ([id number])[facility] ([facility])[address] [place] [address] Anion gap [Moles/Vol] 18 mmol/L Normal 10-20 [facility] Comment on above: Performed By: #### 2 4362-6 ####AYDEE Bruce ([id number])[facility] ([facility])[address] [place] [address] Calcium [Mass/Vol] 8.5 mg/dL Low 8.6-10.6 [facility] Comment on above: Performed By: #### 2 4362-6 ####AYDEE Bruce ([id number])[facility] ([facility])[address] [place] [address] Chloride [Moles/Vol] 96 mmol/L Low 98-107 [facility] Comment on above: Performed By: #### 2 4362-6 ####AYDEE Bruce ([id number])[facility] ([facility])[address] [place] [address] CO2 [Moles/Vol] 24 mmol/L Normal 21-32 [facility] Comment on above: Performed By: #### 2 4362-6 ####AYDEE Bruce ([id number])[facility] ([facility])[address] [place] [address] Creatinine [Mass/Vol] 3.46 mg/dL High 0.50-1.05 [facility] Comment on above: Performed By: #### 2 4362-6 ####AYDEE Bruce ([id number])[facility] ([facility])[address] [place] [address] Glomerular filtration rate 14 mL/min/1.73m*2 Low >60 [facility] Comment on above: Result Comment: Calc ulations of estimated GFR are performed using the 2020 CKD-EPI Study Refit equation without the race variable for the IDMS-Traceable creatinine methods.https://jasn.asnjournals.org/content/early/ N.7329378019 Performed By: #### 2 4362-6 ####AYDEE Bruce ([id number])[facility] ([facility])[address] [place] [address] Glucose [Mass/Vol] 107 mg/dL High 74-99 [facility] Comment on above: Performed By: #### 2 4362-6 ####AYDEE Bruce ([id number])[facility] ([facility])[address] [place] [address] Phosphate [Mass/Vol] 6.0 mg/dL High 2.5-4.9 [facility] Comment on above: Performed By: #### 2 4362-6 ####AYDEE Bruce ([id number])[facility] ([facility])[address] [place] [address] Potassium [Moles/Vol] 3.8 mmol/L Normal 3.5-5.3 [facility] Comment on above: Performed By: #### 2 4362-6 ####AYDEE Bruce ([id number])[facility] ([facility])[address] [place] [address] Sodium [Moles/Vol] 134 mmol/L Low 136-145 [facility] Comment on above: Performed By: #### 2 4362-6 ####AYDEE Bruce ([id number])[facility] ([facility])[address] [place] [address] Urea nitrogen [Mass/Vol] 33 mg/dL High 6-23 [facility] Comment on above: Performed By: #### 2 4362-6 ####AYDEE Bruce ([id number])[facility] ([facility])[address] [place] [address] CBC W Auto Differential pane l (Bld)on 10-20-2024 Basophils (Bld) [#/Vol] 0.06 x10*3/uL Normal 0.00-0.10 [facility] Comment on above: Performed By: #### 5 7021-8 ####AYDEE Bruce ([id number])[facility] ([facility])[address] [place] [address] Basophils/100 WBC (Bld) 1.0 % Normal 0.0-2.0 [facility] Comment on above: Performed By: #### 5 7021-8 ####AYDEE Bruce ([id number])[facility] ([facility])[address] [place] [address] Eosinophils (Bld) [#/Vol] 0.09 x10*3/uL Normal 0.00-0.70 [facility] Comment on above: Performed By: #### 5 7021-8 ####AYDEE Bruce ([id number])[facility] ([facility])[id number] [place] [address] Eosinophils/100 WBC (Bld) 1.5 % Normal 0.0-6.0 [facility] Comment on above: Performed By: #### 5 7021-8 ####AYDEE Bruce ([id number])[facility] ([facility])[address] [place] [address] Erythrocyte distribution width (RBC) [Ratio] 17.0 % High 11.5-14.5 [facility] Comment on above: Performed By: #### 5 7021-8 ####AYDEE Bruce ([id number])[facility] ([facility])[address] [place] [address] Hematocrit (Bld) [Volume fraction] 27.4 % Low 36.0-46.0 [facility] Comment on above: Performed By: #### 5 7021-8 ####AYDEE Bruce ([id number])[facility] ([facility])[id number] [place] [address] Hemoglobin (Bld) [Mass/Vol] 9.0 g/dL Low 12.0-16.0 [facility] Comment on above: Performed By: #### 5 7021-8 ####AYDEE Bruce ([id number])[facility] ([facility])[address] [place] [address] Immature granulocytes (Bld) [#/Vol] 0.06 x10*3/uL Normal 0.00-0.70 [facility] Comment on above: Performed By: #### 5 7021-8 ####AYDEE Bruce ([id number])[facility] ([facility])[address] [place] [address] Immature granulocytes/100 WBC (Bld) 1.0 % High 0.0-0.9 [facility] Comment on above: Result Comment: Doris ture Granulocyte Count (IG) includes promyelocytes, myelocytes and metamyelocytes but does not include bands. Percent differential counts (%) should be interpreted in the context of the absolute cell counts (cells/UL). Performed By: #### 5 7021-8 ####AYDEE Bruce ([id number])[facility] ([facility])[address] [place] [address] Lymphocytes (Bld) [#/Vol] 1.75 x10*3/uL Normal 1.20-4.80 [facility] Comment on above: Performed By: #### 5 7021-8 ####AYDEE Bruce ([id number])[facility] ([facility])[address] [place] [address] Lymphocytes/100 WBC (Bld) 29.5 % Normal 13.0-44.0 [facility] Comment on above: Performed By: #### 5 7021-8 ####AYDEE Bruce ([id number])[facility] ([facility])[address] [place] [address] MCH (RBC) [Entitic mass] 29.7 pg Normal 26.0-34.0 [facility] Comment on above: Performed By: #### 5 7021-8 ####AYDEE Bruce ([id number])[facility] ([facility])[address] [place] [address] MCHC (RBC) [Mass/Vol] 32.8 g/dL Normal 32.0-36.0 [facility] Comment on above: Performed By: #### 5 7021-8 ####AYDEE Bruce ([id number])[facility] ([facility])[address] [place] [address] MCV (RBC) [Entitic vol] 90 fL Normal 80-100 [facility] Comment on above: Performed By: #### 5 7021-8 ####AYDEE Bruce ([id number])[facility] ([facility])[address] [place] [address] Monocytes (Bld) [#/Vol] 1.15 x10*3/uL High 0.10-1.00 [facility] Comment on above: Performed By: #### 5 7021-8 ####AYDEE Bruce ([id number])[facility] ([facility])[address] [place] [address] Monocytes/100 WBC (Bld) 19.4 % Normal 2.0-10.0 [facility] Comment on above: Performed By: #### 5 7021-8 ####AYDEE Bruce ([id number])[facility] ([facility])[address] [place] [address] Neutrophils (Bld) [#/Vol] 2.83 x10*3/uL Normal 1.20-7.70 [facility] Comment on above: Result Comment: Perc ent differential counts (%) should be interpreted in the context of the absolute cell counts (cells/uL). Performed By: #### 5 7021-8 ####AYDEE Bruce (37581)[facility] ([facility])[address] [place] [address] Neutrophils/100 WBC (Bld) 47.6 % Normal 40.0-80.0 [facility] Comment on above: Performed By: #### 5 7021-8 ####AYDEE Bruce ([id number])[facility] ([facility])[address] [place] [address] Nucleated RBC/100 WBC (Bld) [Ratio] 0.0 /100 WBCs Normal 0.0-0.0 [facility] Comment on above: Performed By: #### 5 7021-8 ####AYDEE Bruce ([id number])[facility] ([facility])[address] [place] [address] Platelets (Bld) [#/Vol] 421 x10*3/uL Normal 150-450 [facility] Comment on above: Performed By: #### 5 7021-8 ####AYDEE Bruce ([id number])[facility] ([facility])[address] [place] [address] RBC (Bld) [#/Vol] 3.03 x10*6/uL Low 4.00-5.20 [facility] Comment on above: Performed By: #### 5 7021-8 ####AYDEE Bruce ([id number])[facility] ([facility])[address] [place] [address] WBC (Bld) [#/Vol] 5.9 x10*3/uL Normal 4.4-11.3 [facility] Comment on above: Performed By: #### 5 7021-8 ####AYDEE Bruce ([id number])[facility] ([facility])[address] [place] [address] Glucose Test strip manual (B ld) [Mass/Vol]on 10-20-2024 Glucose [Mass/Vol] 89 mg/dL Normal 74-99 [facility] Comment on above: Performed By: #### 2 341-6 ####AYDEE Bruce ([id number])[facility] ([facility])[address] [place] [address] Glucose [Mass/Vol] 74 mg/dL Normal 74-99 [facility] Comment on above: Performed By: #### 2 341-6 ####AYDEE Bruce ([id number])[facility] ([facility])[address] [place] [address] Glucose [Mass/Vol] 91 mg/dL Normal 74-99 [facility] Comment on above: Performed By: #### 2 341-6 ####AYDEE Bruce ([id number])[facility] ([facility])[address] [place] [address] Heparin.unfractionatedon Heparin unfractionated Chromogenic method Qn (PPP) 0.5 IU/mL Normal See Comment Below for Therapeutic Ranges [facility] Comment on above: Order Comment: Obtai [...] please refer to local Pharmacy and the [facility] Guidelines for Anticoagulation Therapy available on the [facility] intranet at: [email or web address] Performed By: #### 3 274-8 ####AYDEE Bruce ([id number])[facility] ([facility])[address] [place] [address] Magnesiumon 10-20-2024 Magnesium [Mass/Vol] 2.18 mg/dL Normal 1.60-2.40 [facility] Comment on above: Performed By: #### 1 9123-9 ####AYDEE Bruce ([id number])[facility] ([facility])[id number] [place] [address] Renal function 2000 panelon 10-20-2024 Albumin BCP dye [Mass/Vol] 2.9 g/dL Low 3.4-5.0 [facility] Comment on above: Performed By: #### 2 4362-6 ####AYDEE Bruce ([id number])[facility] ([facility])[id number] [place] [address] Anion gap [Moles/Vol] 17 mmol/L Normal 10-20 [facility] Comment on above: Performed By: #### 2 4362-6 ####AYDEE Bruce ([id number])[facility] ([facility])[id number] [place] [address]169 Calcium [Mass/Vol] 8.5 mg/dL Low 8.6-10.6 [facility] Comment on above: Performed By: #### 2 4362-6 ####AYDEE Bruce ([id number])[facility] ([facility])[address] [place] [address] Chloride [Moles/Vol] 97 mmol/L Low 98-107 [facility] Comment on above: Performed By: #### 2 4362-6 ####AYDEE Bruce ([id number])[facility] ([facility])[address] [place] [address] CO2 [Moles/Vol] 25 mmol/L Normal 21-32 [facility] Comment on above: Performed By: #### 2 4362-6 ####AYDEE Bruce ([id number])[facility] ([facility])[address] [address] [place] [address] Creatinine [Mass/Vol] 2.48 mg/dL High 0.50-1.05 [facility] Comment on above: Performed By: #### 2 4362-6 ####AYDEE Bruce ([id number])[facility] ([facility])[address] [place] [address] Glomerular filtration rate 21 mL/min/1.73m*2 Low >60 [facility] Comment on above: Result Comment: Calc ulations of estimated GFR are performed using the 2020 CKD-EPI Study Refit equation without the race variable for the IDMS-Traceable creatinine methods.https://jasn.asnjournals.org/content// N.3526116841 Performed By: #### 2 4362-6 ####AYDEE Bruce ([id number])[facility] ([facility])[address] [place] [address] Glucose [Mass/Vol] 92 mg/dL Normal 74-99 [facility] Comment on above: Performed By: #### 2 4362-6 ####AYDEE Bruce ([id number])[facility] ([facility])[address] [place] [address] Phosphate [Mass/Vol] 5.1 mg/dL High 2.5-4.9 [facility] Comment on above: Performed By: #### 2 4362-6 ####AYDEE Bruce ([id number])[facility] ([facility])[address] [facility] [place] [address] Potassium [Moles/Vol] 3.8 mmol/L Normal 3.5-5.3 [facility] Comment on above: Performed By: #### 2 4362-6 ####AYDEE Bruce ([id number])[facility] ([facility])[address] [facility] [place] [address] Sodium [Moles/Vol] 135 mmol/L Low 136-145 [facility] Comment on above: Performed By: #### 2 436-6 ####AYDEE Bruce ([id number])[facility] ([facility])[address] [place] [address] Urea nitrogen [Mass/Vol] 22 mg/dL Normal 6-23 [facility] Comment on above: Performed By: #### 2 436-6 ####YADEE Bruce ([id number])[facility] ([facility])[address] [place] [address] Blood type and Indirect anti body screen panel (Bld)on 10-19-2024 ABO group Nom (Bld) B Normal [facility] Comment on above: Performed By: #### 3 4532-2 ####AYDEE Bruce ([id number])[facility] ([facility])[address] [address] Blood group antibody screen Ql Negative [facility] Comment on above: Performed By: #### 3 4532-2 ####AYDEE Bruce ([id number])[facility] ([facility] [place] [facility])[address] [address] D Ag Ql (Bld) Positive [facility] Comment on above: Performed By: #### 3 4532-2 ####AYDEE Bruce ([id number])[facility] ([facility] [facility])[address] [address] CBC W Auto Differential pane l (Bld)on 10-19-2024 Basophils (Bld) [#/Vol] 0.05 x10*3/uL Normal 0.00-0.10 [facility] Comment on above: Performed By: #### 5 7021-8 ####AYDEE Bruce ([id number])[facility] ([facility])[id number] [place] [address] Basophils/100 WBC (Bld) 0.9 % Normal 0.0-2.0 [facility] Comment on above: Performed By: #### 5 7021-8 ####AYDEE Bruce ([id number])[facility] ([facility])[address] [place] [address] Eosinophils (Bld) [#/Vol] 0.22 x10*3/uL Normal 0.00-0.70 [facility] Comment on above: Performed By: #### 5 7021-8 ####AYDEE Bruce ([id number])[facility] ([facility])[id number] [place] [address] Eosinophils/100 WBC (Bld) 3.9 % Normal 0.0-6.0 [facility] Comment on above: Performed By: #### 5 7021-8 ####AYDEE Bruce ([id number])[facility] ([facility])[address] [place] [address] Erythrocyte distribution width (RBC) [Ratio] 16.5 % High 11.5-14.5 [facility] Comment on above: Performed By: #### 5 7021-8 ####AYDEE Bruce ([id number])[facility] ([facility])[address] [place] [address] Hematocrit (Bld) [Volume fraction] 26.7 % Low 36.0-46.0 [facility] Comment on above: Performed By: #### 5 7021-8 ####AYDEE Bruce ([id number])[facility] ([facility])[address] [place] [address] Hemoglobin (Bld) [Mass/Vol] 8.8 g/dL Low 12.0-16.0 [facility] Comment on above: Performed By: #### 5 7021-8 ####AYDEE Bruce ([id number])[facility] ([facility])[address] [place] [address] Immature granulocytes (Bld) [#/Vol] 0.04 x10*3/uL Normal 0.00-0.70 [facility] Comment on above: Performed By: #### 5 7021-8 ####AYDEE Bruce ([id number])[facility] ([facility])[address] [place] [address] Immature granulocytes/100 WBC (Bld) 0.7 % Normal 0.0-0.9 [facility] Comment on above: Result Comment: Doris ture Granulocyte Count (IG) includes promyelocytes, myelocytes and metamyelocytes but does not include bands. Percent differential counts (%) should be interpreted in the context of the absolute cell counts (cells/UL). Performed By: #### 5 7021-8 ####AYDEE Bruce ([id number])[facility] ([facility])[address] [place] [address] Lymphocytes (Bld) [#/Vol] 1.33 x10*3/uL Normal 1.20-4.80 [facility] Comment on above: Performed By: #### 5 7021-8 ####AYDEE Bruce ([id number])[facility] ([facility])[address] [place] [address] Lymphocytes/100 WBC (Bld) 23.8 % Normal 13.0-44.0 [facility] Comment on above: Performed By: #### 5 7021-8 ####AYDEE Bruce ([id number])[facility] ([facility])[address] [place] [address] MCH (RBC) [Entitic mass] 29.4 pg Normal 26.0-34.0 [facility] Comment on above: Performed By: #### 5 7021-8 ####AYDEE Bruce ([id number])[facility] ([facility])[address] [place] [address] MCHC (RBC) [Mass/Vol] 33.0 g/dL Normal 32.0-36.0 [facility] Comment on above: Performed By: #### 5 7021-8 ####AYDEE Bruce ([id number])[facility] ([facility])[address] [place] [address] MCV (RBC) [Entitic vol] 89 fL Normal 80-100 [facility] Comment on above: Performed By: #### 5 7021-8 ####AYDEE Bruce ([id number])[facility] ([facility])[address] [place] [address] Monocytes (Bld) [#/Vol] 1.00 x10*3/uL Normal 0.10-1.00 [facility] Comment on above: Performed By: #### 5 7021-8 ####AYDEE Bruce ([id number])[facility] ([facility])[address] [place] [address] Monocytes/100 WBC (Bld) 17.9 % Normal 2.0-10.0 [facility] Comment on above: Performed By: #### 5 7021-8 ####AYDEE Bruce ([id number])[facility] ([facility])[address] [place] [address] Neutrophils (Bld) [#/Vol] 2.94 x10*3/uL Normal 1.20-7.70 [facility] Comment on above: Result Comment: Perc ent differential counts (%) should be interpreted in the context of the absolute cell counts (cells/uL). Performed By: #### 5 7021-8 ####AYDEE Bruce ([id number])[facility] ([facility])[address] [place] [address] Neutrophils/100 WBC (Bld) 52.8 % Normal 40.0-80.0 [facility] Comment on above: Performed By: #### 5 7021-8 ####AYDEE Bruce ([id number])[facility] ([facility])[address] [place] [address] Nucleated RBC/100 WBC (Bld) [Ratio] 0.0 /100 WBCs Normal 0.0-0.0 [facility] Comment on above: Performed By: #### 5 7021-8 ####AYDEE BAZZI L ([id number])[facility] ([facility])[address] [place] [address] Platelets (Bld) [#/Vol] 358 x10*3/uL Normal 150-450 [facility] Comment on above: Performed By: #### 5 7021-8 ####AYDEE Bruce ([id number])[facility] ([facility])[address] [place] [address] RBC (Bld) [#/Vol] 2.99 x10*6/uL Low 4.00-5.20 [facility] Comment on above: Performed By: #### 5 7021-8 ####AYDEE BAZZI L ([id number])[facility] ([facility])[address] [place] [address] WBC (Bld) [#/Vol] 5.6 x10*3/uL Normal 4.4-11.3 [facility] Comment on above: Performed By: #### 5 7021-8 ####AYDEE Bruce ([id number])[facility] ([facility])[address] [place] [address] Glucose Test strip manual (B ld) [Mass/Vol]on 10-19-2024 Glucose [Mass/Vol] 89 mg/dL Normal 74-99 [facility] Comment on above: Performed By: #### 2 341-6 ####AYDEE BAZZI L ([id number])[facility] ([facility])[address] [place] [address] Glucose [Mass/Vol] 74 mg/dL Normal 74-99 [facility] Comment on above: Performed By: #### 2 341-6 ####AYDEE Bruce ([id number])[facility] ([facility])[address] [place] [address] Glucose [Mass/Vol] 84 mg/dL Normal 74-99 [facility] Comment on above: Performed By: #### 2 341-6 ####AYDEE Bruce ([id number])[facility] ([facility])[address] [place] [address] Glucose [Mass/Vol] 90 mg/dL Normal 74-99 [facility] Comment on above: Performed By: #### 2 341-6 ####AYDEE Bruce ([id number])[facility] ([facility])[address] [place] [address] Heparin.unfractionatedon Heparin unfractionated Chromogenic method Qn (PPP) 0.5 IU/mL Normal See Comment Below for Therapeutic Ranges [facility] Comment on above: Order Comment: Obtai [...] please refer to local Pharmacy and the [facility] Guidelines for Anticoagulation Therapy available on the [facility] intranet at: [email or web address] Performed By: #### 3 274-8 ####AYDEE Bruce ([id number])[facility] ([facility])[address] [place] [address] Magnesiumon 10-19-2024 Magnesium [Mass/Vol] 2.36 mg/dL Normal 1.60-2.40 [facility] Comment on above: Performed By: #### 1 9123-9 ####AYDEE Bruce (66860)[facility] ([facility])[address] [place] [address] Renal function 2000 panelon 10-19-2024 Albumin BCP dye [Mass/Vol] 2.8 g/dL Low 3.4-5.0 [facility] Comment on above: Performed By: #### 2 4362-6 ####AYDEE Bruce ([id number])[facility] ([facility])[address] [place] [address] Anion gap [Moles/Vol] 19 mmol/L Normal 10-20 [facility] Comment on above: Performed By: #### 2 4362-6 ####AYDEE Bruce ([id number])[facility] ([facility])[address] [place] [address] Calcium [Mass/Vol] 8.5 mg/dL Low 8.6-10.6 [facility] Comment on above: Performed By: #### 2 4362-6 ####AYDEE Bruce ([id number])[facility] ([facility])[address] [place] [address] Chloride [Moles/Vol] 89 mmol/L Low 98-107 [facility] Comment on above: Performed By: #### 2 4362-6 ####AYDEE Bruce ([id number])[facility] ([facility])[address] [place] [address] CO2 [Moles/Vol] 23 mmol/L Normal 21-32 [facility] Comment on above: Performed By: #### 2 4362-6 ####AYDEE Bruce ([id number])[facility] ([facility])[address] [place] [address] Creatinine [Mass/Vol] 3.84 mg/dL High 0.50-1.05 [facility] Comment on above: Performed By: #### 2 4362-6 ####AYDEE Bruce (38762)[facility] ([facility])[address] [place] [address] Glomerular filtration rate 12 mL/min/1.73m*2 Low >60 [facility] Comment on above: Result Comment: Calc ulations of estimated GFR are performed using the 2020 CKD-EPI Study Refit equation without the race variable for the IDMS-Traceable creatinine methods.https://jasn.asnjournals.org/content/early/ N.0034620569 Performed By: #### 2 4362-6 ####AYDEE Bruce ([id number])[facility] ([facility])[address] [place] [address] Glucose [Mass/Vol] 85 mg/dL Normal 74-99 [facility] Comment on above: Performed By: #### 2 4362-6 ####AYDEE Bruce (59275)[facility] ([facility])[address] [place] [address] Phosphate [Mass/Vol] 7.8 mg/dL High 2.5-4.9 [facility] Comment on above: Result Comment: MILD HEMOLYSIS DETECTED. The result may be falsely elevated due to hemolysis or other interferents. Clinical correlation is recommended. Repeat testing may be considered. Performed By: #### 2 4362-6 ####AYDEE BAZZI L ([id number])[facility] ([facility])[address] [place] [address] Potassium [Moles/Vol] 4.4 mmol/L Normal 3.5-5.3 [facility] Comment on above: Result Comment: MILD HEMOLYSIS DETECTED. The result may be falsely elevated due to hemolysis or other interferents. Clinical correlation is recommended. Repeat testing may be considered. Performed By: #### 2 4362-6 ####AYDEE CAMILOMOTZER L ([id number])[facility] ([facility])[address] [place] [address] Sodium [Moles/Vol] 127 mmol/L Low 136-145 [facility] Comment on above: Performed By: #### 2 4362-6 ####AYDEE CAMILOMOTZLILIANA L ([id number])[facility] ([facility])[address] [facility] [place] [address] Urea nitrogen [Mass/Vol] 47 mg/dL High 6-23 [facility] Comment on above: Performed By: #### 2 4362-6 ####AYDEE Bruce (85233)[facility] ([facility])[address] [place] [address] CBC W Auto Differential pane l (Bld)on 10-18-2024 Basophils (Bld) [#/Vol] 0.07 x10*3/uL Normal 0.00-0.10 [facility] Comment on above: Performed By: #### 5 7021-8 ####AYDEE Bruce ([id number])[facility] ([facility])[address] [place] [address] Basophils/100 WBC (Bld) 1.3 % Normal 0.0-2.0 [facility] Comment on above: Performed By: #### 5 7021-8 ####AYDEE Bruce ([id number])[facility] ([facility])[address] [place] [address] Eosinophils (Bld) [#/Vol] 0.38 x10*3/uL Normal 0.00-0.70 [facility] Comment on above: Performed By: #### 5 7021-8 ####AYDEE Bruce ([id number])[facility] ([facility])[address] [place] [address] Eosinophils/100 WBC (Bld) 7.3 % Normal 0.0-6.0 [facility] Comment on above: Performed By: #### 5 7021-8 ####AYDEE Bruce ([id number])[facility] ([facility])[address] [place] [address] Erythrocyte distribution width (RBC) [Ratio] 16.6 % High 11.5-14.5 [facility] Comment on above: Performed By: #### 5 7021-8 ####AYDEE Bruce ([id number])[facility] ([facility])[address] [place] [address] Hematocrit (Bld) [Volume fraction] 25.5 % Low 36.0-46.0 [facility] Comment on above: Performed By: #### 5 7021-8 ####AYDEE VALDEZTZER L ([id number])[facility] ([facility])[address] [place] [address] Hemoglobin (Bld) [Mass/Vol] 8.8 g/dL Low 12.0-16.0 [facility] Comment on above: Performed By: #### 5 7021-8 ####AYDEE CAMILOMOTZER L (67656)[facility] ([facility])[address] [place] [address] Immature granulocytes (Bld) [#/Vol] 0.06 x10*3/uL Normal 0.00-0.70 [facility] Comment on above: Performed By: #### 5 7021-8 ####AYDEE VALDEZTZLILIANA L ([id number])[facility] ([facility])[address] [place] [address] Immature granulocytes/100 WBC (Bld) 1.2 % High 0.0-0.9 [facility] Comment on above: Result Comment: Doris ture Granulocyte Count (IG) includes promyelocytes, myelocytes and metamyelocytes but does not include bands. Percent differential counts (%) should be interpreted in the context of the absolute cell counts (cells/UL). Performed By: #### 5 7021-8 ####AYDEE BAZZI L (68805)[facility] ([facility])[address] [place] [address] Lymphocytes (Bld) [#/Vol] 1.28 x10*3/uL Normal 1.20-4.80 [facility] Comment on above: Performed By: #### 5 7021-8 ####AYDEE VALDEZTZER L ([id number])[facility] ([facility])[address] [place] [address] Lymphocytes/100 WBC (Bld) 24.7 % Normal 13.0-44.0 [facility] Comment on above: Performed By: #### 5 7021-8 ####AYDEE CAMILOMOTZER L (90659)[facility] ([facility])[address] [place] [address] MCH (RBC) [Entitic mass] 30.2 pg Normal 26.0-34.0 [facility] Comment on above: Performed By: #### 5 7021-8 ####AYDEE Bruce ([id number])[facility] ([facility])[address] [place] [address] MCHC (RBC) [Mass/Vol] 34.5 g/dL Normal 32.0-36.0 [facility] Comment on above: Performed By: #### 5 7021-8 ####AYDEE Bruce (62881)[facility] ([facility])[address] [place] [address] MCV (RBC) [Entitic vol] 88 fL Normal 80-100 [facility] Comment on above: Performed By: #### 5 7021-8 ####AYDEE Bruce (79369)[facility] ([facility])[address] [place] [address] Monocytes (Bld) [#/Vol] 1.18 x10*3/uL High 0.10-1.00 [facility] Comment on above: Performed By: #### 5 7021-8 ####AYDEE Bruce (31562)[facility] ([facility])[address] [place] [address] Monocytes/100 WBC (Bld) 22.7 % Normal 2.0-10.0 [facility] Comment on above: Performed By: #### 5 7021-8 ####AYDEE CAMILOMOJOSE E L (85831)[facility] ([facility])[address] [place] [address] Neutrophils (Bld) [#/Vol] 2.22 x10*3/uL Normal 1.20-7.70 [facility] Comment on above: Result Comment: Perc ent differential counts (%) should be interpreted in the context of the absolute cell counts (cells/uL). Performed By: #### 5 7021-8 ####AYDEE Bruce ([id number])[facility] ([facility])[address] [place] [address] Neutrophils/100 WBC (Bld) 42.8 % Normal 40.0-80.0 [facility] Comment on above: Performed By: #### 5 7021-8 ####AYDEE Bruce (43212)[facility] ([facility])[address] [place] [address] Nucleated RBC/100 WBC (Bld) [Ratio] 0.0 /100 WBCs Normal 0.0-0.0 [facility] Comment on above: Performed By: #### 5 7021-8 ####AYDEE Bruce (15658)[facility] ([facility])[address] [place] [address] Platelets (Bld) [#/Vol] 336 x10*3/uL Normal 150-450 [facility] Comment on above: Performed By: #### 5 7021-8 ####AYDEE Bruce (38349)[facility] ([facility])[address] [place] [address] RBC (Bld) [#/Vol] 2.91 x10*6/uL Low 4.00-5.20 [facility] Comment on above: Performed By: #### 5 7021-8 ####AYDEE Bruce ([id number])[facility] ([facility])[address] [place] [address] WBC (Bld) [#/Vol] 5.2 x10*3/uL Normal 4.4-11.3 [facility] Comment on above: Performed By: #### 5 7021-8 ####AYDEE Bruce ([id number])[facility] ([facility])[address] [place] [address] Gas panel (BldV)on 5 Anion gap 4 (BldV) [Moles/Vol] 11.0 mmol/L Normal 10.0-25.0 [facility] Comment on above: Performed By: #### 2 4339-4 ####AYDEE Bruce ([id number])[facility] ([facility])[address] [place] [address] Base excess Calc (BldV) [Moles/Vol] -1.3000 mmol/L Normal -2.0-3.0 [facility] Comment on above: Performed By: #### 2 4339-4 ####AYDEE Bruce ([id number])[facility] ([facility])[address] [place] [address] Calcium.ionized (BldV) [Moles/Vol] 1.15 mmol/L Normal 1.10-1.33 [facility] Comment on above: Performed By: #### 2 4339-4 ####AYDEE Bruce ([id number])[facility] ([facility])[address] [place] [address] Chloride (BldV) [Moles/Vol] 92 mmol/L Low 98-107 [facility] Comment on above: Performed By: #### 2 4339-4 ####AYDEE Bruce ([id number])[facility] ([facility])[address] [place] [address] CO2 (BldV) [Partial pressure] 47 mm Hg Normal 41-51 [facility] Comment on above: Performed By: #### 2 4339-4 ####AYDEE Bruce ([id number])[facility] ([facility])[address] [place] [address] Glucose [Mass/Vol] 80 mg/dL Normal 74-99 [facility] Comment on above: Performed By: #### 2 4339-4 ####AYDEE Bruce ([id number])[facility] ([facility])[address] [place] [address] HCO3 (Bld) [Moles/Vol] 24.8 mmol/L Normal 22.0-26.0 [facility] Comment on above: Performed By: #### 2 4339-4 ####AYDEE Bruce ([id number])[facility] ([facility])[address] [place] [address] Hematocrit Est (Bld) [Volume fraction] 28.0 % Low 36.0-46.0 [facility] Comment on above: Performed By: #### 2 4339-4 ####AYDEE Bruce ([id number])[facility] ([facility])[id number] [place] [address] Hemoglobin (Bld) [Mass/Vol] 9.4 g/dL Low 12.0-16.0 [facility] Comment on above: Performed By: #### 2 4339-4 ####AYDEE Bruce ([id number])[facility] ([facility])[id number] [place] [address] Inhaled oxygen concentration 40 % Normal [facility] Comment on above: Performed By: #### 2 4339-4 ####AYDEE Bruce ([id number])[facility] ([facility])[id number] [place] [address] Lactate (BldV) [Moles/Vol] 0.6 mmol/L Normal 0.4-2.0 [facility] Comment on above: Performed By: #### 2 4339-4 ####AYDEE Bruce ([id number])[facility] ([facility])[id number] [place] [address] Oxygen (BldV) [Partial pressure] 43 mm Hg Normal 35-45 [facility] Comment on above: Performed By: #### 2 4339-4 ####AYDEE Bruce ([id number])[facility] ([facility])[id number] [place] [address] 67591 Oxygen saturation in Venous blood 73 % Normal 45-75 [facility] Comment on above: Performed By: #### 2 4339-4 ####AYDEE Bruce ([id number])[facility] ([facility])[address] [place] [address] 25348 Oxyhemoglobin (BldV) [Mass fraction] 70.8 % Normal 45.0-75.0 [facility] Comment on above: Performed By: #### 2 4339-4 ####AYDEE Bruce ([id number])[facility] ([facility])[address] [place] [address] pH (BldV) 7.33 [pH] Normal 7.33-7.43 [facility] Comment on above: Performed By: #### 2 4339-4 ####AYDEE Bruce ([id number])[facility] ([facility])[address] [place] [address] Potassium (BldV) [Moles/Vol] 3.8 mmol/L Normal 3.5-5.3 [facility] Comment on above: Performed By: #### 2 4339-4 ####AYDEE Bruce ([id number])[facility] ([facility])[address] [place] [address] 29686 Sodium (BldV) [Moles/Vol] 124 mmol/L Low 136-145 [facility] Comment on above: Performed By: #### 2 4339-4 ####AYDEE Bruce ([id number])[facility] ([facility])[id number] [place] [address] 64731 Glucose Test strip manual (B ld) [Mass/Vol]on 10-18-2024 Glucose [Mass/Vol] 84 mg/dL Normal 74-99 [facility] Comment on above: Performed By: #### 2 341-6 ####AYDEE Bruce ([id number])[facility] ([facility])[id number] [place] [address] 68540 Heparin.unfractionatedon Heparin unfractionated Chromogenic method Qn (PPP) 0.5 IU/mL Normal See Comment Below for Therapeutic Ranges [facility] Comment on above: Order Comment: Obtai [...] please refer to local Pharmacy and the [facility] Guidelines for Anticoagulation Therapy available on the [facility] intranet at: [email or web address]_[email or web address] Performed By: #### 3 274-8 ####AYDEE Bruce ([id number])[facility] ([facility])[address] [place] [address] 81240 Heparin unfractionated Chromogenic method Qn (PPP) 0.2 IU/mL Normal See Comment Below for Therapeutic Ranges [facility] Comment on above: Order Comment: Obtai [...] please refer to local Pharmacy and the [facility] Guidelines for Anticoagulation Therapy available on the [facility] intranet at: [email or web address]_[email or web address].aspx Performed By: #### 3 274-8 ####AYDEE Bruce ([id number])[facility] ([facility])[address] [place] [address] 14367 Magnesiumon 10-18-2024 Magnesium [Mass/Vol] 2.24 mg/dL Normal 1.60-2.40 [facility] Comment on above: Performed By: #### 1 9123-9 ####AYDEE Bruce ([id number])[facility] ([facility])[address] [place] [address] 19621 Renal function 2000 panelon 10-18-2024 Albumin BCP dye [Mass/Vol] 2.7 g/dL Low 3.4-5.0 [facility] Comment on above: Performed By: #### 2 4362-6 ####AYDEE Bruce ([id number])[facility] ([facility])[address] [place] [address] Anion gap [Moles/Vol] 18 mmol/L Normal 10-20 [facility] Comment on above: Performed By: #### 2 4362-6 ####ADYEE VALDEZTZER L ([id number])[facility] ([facility])[address] [place] [address] Calcium [Mass/Vol] 8.3 mg/dL Low 8.6-10.6 [facility] Comment on above: Performed By: #### 2 4362-6 ####AYDEE SCHMOTZER L ([id number])[facility] ([facility])[address] [place] [address] Chloride [Moles/Vol] 90 mmol/L Low 98-107 [facility] Comment on above: Performed By: #### 2 4362-6 ####AYDEE CAMILOMOTZER L ([id number])[facility] ([facility])[address] [place] [address] CO2 [Moles/Vol] 23 mmol/L Normal 21-32 [facility] Comment on above: Performed By: #### 2 4362-6 ####AYDEE VALDEZTZER L ([id number])[facility] ([facility])[address] [place] [address] Creatinine [Mass/Vol] 3.11 mg/dL High 0.50-1.05 [facility] Comment on above: Performed By: #### 2 4362-6 ####AYDEE CAMILOMOTZER L ([id number])[facility] ([facility])[address] [place] [address] Glomerular filtration rate 16 mL/min/1.73m*2 Low >60 [facility] Comment on above: Result Comment: Calc ulations of estimated GFR are performed using the 2020 CKD-EPI Study Refit equation without the race variable for the IDMS-Traceable creatinine methods.https://jasn.asnjournals.org/content/early/ N.9165258771 Performed By: #### 2 4362-6 ####AYDEE VALDEZTZER L ([id number])[facility] ([facility])[address] [place] [address] Glucose [Mass/Vol] 81 mg/dL Normal 74-99 [facility] Comment on above: Performed By: #### 2 4362-6 ####AYDEE Bruce ([id number])[facility] ([facility])[address] [place] [address] Phosphate [Mass/Vol] 6.1 mg/dL High 2.5-4.9 [facility] Comment on above: Performed By: #### 2 4362-6 ####AYDEE Bruce ([id number])[facility] ([facility])[address] [place] [address] Potassium [Moles/Vol] 4.0 mmol/L Normal 3.5-5.3 [facility] Comment on above: Performed By: #### 2 4362-6 ####AYDEE Bruce ([id number])[facility] ([facility])[address] [place] [address] Sodium [Moles/Vol] 127 mmol/L Low 136-145 [facility] Comment on above: Performed By: #### 2 4362-6 ####AYDEE Bruce ([id number])[facility] ([facility])[address] [place] [address] Urea nitrogen [Mass/Vol] 40 mg/dL High 6-23 [facility] Comment on above: Performed By: #### 2 4362-6 ####AYDEE Bruce ([id number])[facility] ([facility])[address] [place] [address] Basic metabolic 2000 panelon 10-17-2024 Anion gap [Moles/Vol] 16 mmol/L Normal 10-20 [facility] Comment on above: Performed By: #### 2 4321-2 ####AYDEE Bruce ([id number])[facility] ([facility])[address] [place] [address] Calcium [Mass/Vol] 8.0 mg/dL Low 8.6-10.6 [facility] Comment on above: Performed By: #### 2 4321-2 ####AYDEE Bruce ([id number])[facility] ([facility])[address] [place] [address] Chloride [Moles/Vol] 89 mmol/L Low 98-107 [facility] Comment on above: Performed By: #### 2 4321-2 ####AYDEE BAZZI L ([id number])[facility] ([facility])[address] [place] [address] CO2 [Moles/Vol] 26 mmol/L Normal 21-32 [facility] Comment on above: Performed By: #### 2 4321-2 ####AYDEE BAZZI L ([id number])[facility] ([facility])[address] [place] [address] Creatinine [Mass/Vol] 2.28 mg/dL High 0.50-1.05 [facility] Comment on above: Performed By: #### 2 4321-2 ####AYDEE BAZZI L ([id number])[facility] ([facility])[address] [place] [address] Glomerular filtration rate 23 mL/min/1.73m*2 Low >60 [facility] Comment on above: Result Comment: Calc ulations of estimated GFR are performed using the 2020 CKD-EPI Study Refit equation without the race variable for the IDMS-Traceable creatinine methods.https://jasn.asnjournals.org/content/early/ N.5096969077 Performed By: #### 2 4321-2 ####AYDEE BAZZI L ([id number])[facility] ([facility])[address] [place] [address] Glucose [Mass/Vol] 122 mg/dL High 74-99 [facility] Comment on above: Performed By: #### 2 4321-2 ####AYDEE CAMILOMOTZLILIANA L ([id number])[facility] ([facility])[address] [place] [address] Potassium [Moles/Vol] 3.8 mmol/L Normal 3.5-5.3 [facility] Comment on above: Result Comment: MILD HEMOLYSIS DETECTED. The result may be falsely elevated due to hemolysis or other interferents. Clinical correlation is recommended. Repeat testing may be considered. Performed By: #### 2 4321-2 ####AYDEE Bruce ([id number])[facility] ([facility])[address] [place] [address] Sodium [Moles/Vol] 127 mmol/L Low 136-145 [facility] Comment on above: Performed By: #### 2 4321-2 ####AYEDE Bruce ([id number])[facility] ([facility])[address] [place] [address] 06898 Urea nitrogen [Mass/Vol] 31 mg/dL High 6-23 [facility] Comment on above: Performed By: #### 2 4321-2 ####AYDEE Bruce ([id number])[facility] ([facility])[address] [place] [address] 65397 CBC W Auto Differential pane l (Bld)on 10-17-2024 Basophils (Bld) [#/Vol] 0.07 x10*3/uL Normal 0.00-0.10 [facility] Comment on above: Performed By: #### 5 7021-8 ####AYDEE Bruce ([id number])[facility] ([facility])[address] [place] [address] 44076 Basophils/100 WBC (Bld) 1.8 % Normal 0.0-2.0 [facility] Comment on above: Performed By: #### 5 7021-8 ####AYDEE BAZZI L ([id number])[facility] ([facility])[address] [place] [address] 85258 Eosinophils (Bld) [#/Vol] 0.42 x10*3/uL Normal 0.00-0.70 [facility] Comment on above: Performed By: #### 5 7021-8 ####AYDEE Bruce ([id number])[facility] ([facility])[address] [place] [address] Eosinophils/100 WBC (Bld) 10.7 % Normal 0.0-6.0 [facility] Comment on above: Performed By: #### 5 7021-8 ####AYDEE Bruce ([id number])[facility] ([facility])[address] [place] [address] Erythrocyte distribution width (RBC) [Ratio] 16.8 % High 11.5-14.5 [facility] Comment on above: Performed By: #### 5 7021-8 ####AYDEE Bruce ([id number])[facility] ([facility])[address] [place] [address] 23405 Hematocrit (Bld) [Volume fraction] 23.1 % Low 36.0-46.0 [facility] Comment on above: Performed By: #### 5 7021-8 ####AYDEE Bruce ([id number])[facility] ([facility])[address] [place] [address] 54065 Hemoglobin (Bld) [Mass/Vol] 7.7 g/dL Low 12.0-16.0 [facility] Comment on above: Performed By: #### 5 7021-8 ####AYDEE Bruce ([id number])[facility] ([facility])[address] [place] [address] 25102 Immature granulocytes (Bld) [#/Vol] 0.02 x10*3/uL Normal 0.00-0.70 [facility] Comment on above: Performed By: #### 5 7021-8 ####AYDEE Burce ([id number])[facility] ([facility])[address] [place] [address] Immature granulocytes/100 WBC (Bld) 0.5 % Normal 0.0-0.9 [facility] Comment on above: Result Comment: Doris ture Granulocyte Count (IG) includes promyelocytes, myelocytes and metamyelocytes but does not include bands. Percent differential counts (%) should be interpreted in the context of the absolute cell counts (cells/UL). Performed By: #### 5 7021-8 ####AYDEE Bruce ([id number])[facility] ([facility])[address] [place] [address] Lymphocytes (Bld) [#/Vol] 1.12 x10*3/uL Low 1.20-4.80 [facility] Comment on above: Performed By: #### 5 7021-8 ####AYDEE Bruce ([id number])[facility] ([facility])[address] [place] [address] 48174 Lymphocytes/100 WBC (Bld) 28.6 % Normal 13.0-44.0 [facility] Comment on above: Performed By: #### 5 7021-8 ####AYDEE Bruce ([id number])[facility] ([facility])[address] [place] [address] 54722 MCH (RBC) [Entitic mass] 29.6 pg Normal 26.0-34.0 [facility] Comment on above: Performed By: #### 5 7021-8 ####AYDEE Bruce (77236)[facility] ([facility])[address] [place] [address] MCHC (RBC) [Mass/Vol] 33.3 g/dL Normal 32.0-36.0 [facility] Comment on above: Performed By: #### 5 7021-8 ####AYDEE Bruce ([id number])[facility] ([facility])[address] [place] [address] MCV (RBC) [Entitic vol] 89 fL Normal 80-100 [facility] Comment on above: Performed By: #### 5 7021-8 ####AYDEE Bruce (06902)[facility] ([facility])[address] [place] [address] 94693 Monocytes (Bld) [#/Vol] 0.74 x10*3/uL Normal 0.10-1.00 [facility] Comment on above: Performed By: #### 5 7021-8 ####AYDEE Bruce ([id number])[facility] ([facility])[address] [place] [address] Monocytes/100 WBC (Bld) 18.9 % Normal 2.0-10.0 [facility] Comment on above: Performed By: #### 5 7021-8 ####AYDEE Bruce ([id number])[facility] ([facility])[address] [place] [address] Neutrophils (Bld) [#/Vol] 1.54 x10*3/uL Normal 1.20-7.70 [facility] Comment on above: Result Comment: Perc ent differential counts (%) should be interpreted in the context of the absolute cell counts (cells/uL). Performed By: #### 5 7021-8 ####AYDEE Bruce (54287)[facility] ([facility])[address] [place] [address] Neutrophils/100 WBC (Bld) 39.5 % Normal 40.0-80.0 [facility] Comment on above: Performed By: #### 5 7021-8 ####AYDEE Bruce ([id number])[facility] ([facility])[address] [place] [address] Nucleated RBC/100 WBC (Bld) [Ratio] 0.0 /100 WBCs Normal 0.0-0.0 [facility] Comment on above: Performed By: #### 5 7021-8 ####AYDEE Bruce (67815)[facility] ([facility])[address] [place] [address] Platelets (Bld) [#/Vol] 355 x10*3/uL Normal 150-450 [facility] Comment on above: Performed By: #### 5 7021-8 ####AYDEE Bruce ([id number])[facility] ([facility])[address] [place] [address] RBC (Bld) [#/Vol] 2.60 x10*6/uL Low 4.00-5.20 [facility] Comment on above: Performed By: #### 5 7021-8 ####AYDEE Bruce ([id number])[facility] ([facility])[address] [place] [address] 34039 WBC (Bld) [#/Vol] 3.9 x10*3/uL Low 4.4-11.3 [facility] Comment on above: Performed By: #### 5 7021-8 ####AYDEE Bruce ([id number])[facility] ([facility])[address] [place] [address] 58314 CBC panel Auto (Bld)on 10-17 Erythrocyte distribution width (RBC) [Ratio] 16.4 % High 11.5-14.5 [facility] Comment on above: Performed By: #### 5 8410-2 ####AYDEE Bruce (72323)[facility] ([facility])[address] [place] [address] 46815 Hematocrit (Bld) [Volume fraction] 27.2 % Low 36.0-46.0 [facility] Comment on above: Performed By: #### 5 8410-2 ####AYDEE Bruce ([id number])[facility] ([facility])[address] [place] [address] 12656 Hemoglobin (Bld) [Mass/Vol] 9.1 g/dL Low 12.0-16.0 [facility] Comment on above: Performed By: #### 5 8410-2 ####AYDEE Bruce (00246)[facility] ([facility])[address] [place] [address] 54349 MCH (RBC) [Entitic mass] 29.9 pg Normal 26.0-34.0 [facility] Comment on above: Performed By: #### 5 8410-2 ####AYDEE Bruce ([id number])[facility] ([facility])[address] [place] [address] 68009 MCHC (RBC) [Mass/Vol] 33.5 g/dL Normal 32.0-36.0 [facility] Comment on above: Performed By: #### 5 8410-2 ####AYDEE Bruce ([id number])[facility] ([facility])[address] [place] [address] MCV (RBC) [Entitic vol] 90 fL Normal 80-100 [facility] Comment on above: Performed By: #### 5 8410-2 ####AYDEE Bruce (54854)[facility] ([facility])[address] [place] [address] Nucleated RBC/100 WBC (Bld) [Ratio] 0.0 /100 WBCs Normal 0.0-0.0 [facility] Comment on above: Performed By: #### 5 8410-2 ####AYDEE Bruce ([id number])[facility] ([facility])[address] [place] [address] 70498 Platelets (Bld) [#/Vol] 362 x10*3/uL Normal 150-450 [facility] Comment on above: Performed By: #### 5 8410-2 ####AYDEE Bruce ([id number])[facility] ([facility])[address] [place] [address] 58814 RBC (Bld) [#/Vol] 3.04 x10*6/uL Low 4.00-5.20 [facility] Comment on above: Performed By: #### 5 8410-2 ####AYDEE Bruce ([id number])[facility] ([facility])[address] [place] [address] WBC (Bld) [#/Vol] 5.4 x10*3/uL Normal 4.4-11.3 [facility] Comment on above: Performed By: #### 5 8410-2 ####AYDEE Bruce (08391)[facility] ([facility])[address] [place] [address] Erythrocyte distribution width (RBC) [Ratio] 16.8 % High 11.5-14.5 [facility] Comment on above: Performed By: #### 5 8410-2 ####AYDEE Bruce ([id number])[facility] ([facility])[address] [place] [address] Hematocrit (Bld) [Volume fraction] 22.6 % Low 36.0-46.0 [facility] Comment on above: Performed By: #### 5 8410-2 ####AYDEE Bruce ([id number])[facility] ([facility])[address] [place] [address] Hemoglobin (Bld) [Mass/Vol] 7.4 g/dL Low 12.0-16.0 [facility] Comment on above: Performed By: #### 5 8410-2 ####AYDEE rBuce (53037)[facility] ([facility])[address] [place] [address] 23054 MCH (RBC) [Entitic mass] 29.1 pg Normal 26.0-34.0 [facility] Comment on above: Performed By: #### 5 8410-2 ####AYDEE Bruce (81177)[facility] ([facility])[address] [place] [address] 19156 MCHC (RBC) [Mass/Vol] 32.7 g/dL Normal 32.0-36.0 [facility] Comment on above: Performed By: #### 5 8410-2 ####AYDEE Bruce (04737)[facility] ([facility])[address] [place] [address] MCV (RBC) [Entitic vol] 89 fL Normal 80-100 [facility] Comment on above: Performed By: #### 5 8410-2 ####AYDEE Bruce (57953)[facility] ([facility])[address] [place] [address] Nucleated RBC/100 WBC (Bld) [Ratio] 0.0 /100 WBCs Normal 0.0-0.0 [facility] Comment on above: Performed By: #### 5 8410-2 ####AYDEE Bruce (25813)[facility] ([facility])[address] [place] [address] Platelets (Bld) [#/Vol] 355 x10*3/uL Normal 150-450 [facility] Comment on above: Performed By: #### 5 8410-2 ####AYDEE Bruce ([id number])[facility] ([facility])[address] [place] [address] RBC (Bld) [#/Vol] 2.54 x10*6/uL Low 4.00-5.20 [facility] Comment on above: Performed By: #### 5 8410-2 ####AYDEE Bruce (14856)[facility] ([facility])[address] [place] [address] WBC (Bld) [#/Vol] 5.1 x10*3/uL Normal 4.4-11.3 [facility] Comment on above: Performed By: #### 5 8410-2 ####AYDEE Bruce (34893)[facility] ([facility])[address] [place] [address] Clostridioides difficile tox in A+B tcdA+tcdB geneson 10-17-2024 C. difficile toxin A+B tcdA+tcdB genes MONIKA+probe Ql (Stl) Clostridioides difficile toxin A+B tcdA+tcdB genes Not Detected Normal Not Detected [facility] Comment on above: Order Comment: This [...] Performed By: #### 8 0685-1 ####AYDEE Bruce ([id number])[facility] ([facility])[address] [place] [address] Glucose Test strip manual (B ld) [Mass/Vol]on 10-17-2024 Glucose [Mass/Vol] 84 mg/dL Normal 74-99 [facility] Comment on above: Performed By: #### 2 341-6 ####AYDEE Bruce (51539)[facility] ([facility])[address] [facility] [place] [address] Glucose [Mass/Vol] 98 mg/dL Normal 74-99 [facility] Comment on above: Performed By: #### 2 341-6 ####AYDEE VALDEZTZER L ([id number])[facility] ([facility])[address] [place] [address] Glucose [Mass/Vol] 115 mg/dL High 74-99 [facility] Comment on above: Performed By: #### 2 341-6 ####AYDEE Bruce ([id number])[facility] ([facility])[address] [place] [address] Glucose [Mass/Vol] 104 mg/dL High 74-99 [facility] Comment on above: Performed By: #### 2 341-6 ####AYDEE Bruce ([id number])[facility] ([facility])[address] [place] [address] Heparin.unfractionatedon Heparin unfractionated Chromogenic method Qn (PPP) 0.7 IU/mL Normal See Comment Below for Therapeutic Ranges [facility] Comment on above: Order Comment: Obtai [...] please refer to local Pharmacy and the [facility] Guidelines for Anticoagulation Therapy available on the [facility] intranet at: [email or web address] Performed By: #### 3 274-8 ####AYDEE VALDEZTZLILIANA L ([id number])[facility] ([facility])[address] [place] [address] Hepatic function 2000 panelo n 10-17-2024 Albumin BCP dye [Mass/Vol] 2.7 g/dL Low 3.4-5.0 [facility] Comment on above: Performed By: #### 2 4325-3 ####AYDEE Bruce ([id number])[facility] ([facility])[address] [place] [address] ALP [Catalytic activity/Vol] 192 U/L High 33-136 [facility] Comment on above: Performed By: #### 2 4325-3 ####AYDEE BAZZI L ([id number])[facility] ([facility])[address] [place] [address] ALT With P-5'-P [Catalytic activity/Vol] 19 U/L Normal 7-45 [facility] Comment on above: Result Comment: Susan ents treated with Sulfasalazine may generate falsely decreased results for ALT. Performed By: #### 2 4325-3 ####AYDEE Bruce ([id number])[facility] ([facility])[address] [place] [address] AST With P-5'-P [Catalytic activity/Vol] 35 U/L Normal 9-39 [facility] Comment on above: Result Comment: MILD HEMOLYSIS DETECTED. The result may be falsely elevated due to hemolysis or other interferents. Clinical correlation is recommended. Repeat testing may be considered. Performed By: #### 2 4325-3 ####AYDEE Bruce ([id number])[facility] ([facility])[address] [place] [address] Bilirubin [Mass/Vol] 1.2 mg/dL Normal 0.0-1.2 [facility] Comment on above: Performed By: #### 2 4325-3 ####AYDEE BAZZI L ([id number])[facility] ([facility])[address] [place] [address] Bilirubin.direct [Mass/Vol] 0.3 mg/dL Normal 0.0-0.3 [facility] Comment on above: Result Comment: MILD HEMOLYSIS DETECTED. The result may be falsely decreased due to hemolysis or other interferents. Clinical correlation is recommended. Repeat testing may be considered. Performed By: #### 2 4325-3 ####AYDEE Bruce ([id number])[facility] ([facility])[address] [place] [address] Protein [Mass/Vol] 5.1 g/dL Low 6.4-8.2 [facility] Comment on above: Performed By: #### 2 4325-3 ####AYDEE Bruce ([id number])[facility] ([facility])[address] [place] [address] Lactateon 10-17-2024 Lactate [Moles/Vol] 0.7 mmol/L Normal 0.4-2.0 [facility] Comment on above: Order Comment: Venip uncture immediately after or during the administration of Metamizole may lead to falsely low results. Testing should be performed immediately prior to Metamizole dosing. Performed By: #### 2 524-7 ####AYDEE Bruce ([id number])[facility] ([facility])[address] [place] [address] Magnesiumon 10-17-2024 Magnesium [Mass/Vol] 2.24 mg/dL Normal 1.60-2.40 [facility] Comment on above: Performed By: #### 1 9123-9 ####AYDEE Bruce ([id number])[facility] ([facility])[address] [place] [address] Phosphateon 10-17-2024 Phosphate [Mass/Vol] 4.2 mg/dL Normal 2.5-4.9 [facility] Comment on above: Result Comment: MILD HEMOLYSIS DETECTED. The result may be falsely elevated due to hemolysis or other interferents. Clinical correlation is recommended. Repeat testing may be considered. Performed By: #### 2 777-1 ####AYDEE Bruce ([id number])[facility] ([facility])[address] [place] [address] THROMBOELASTOGRAPH CLOTTING GLOBAL PROFILEon 10-17-2024 Clot angle.kaolin induced 80.0 deg High 63.0-78.0 [facility] Comment on above: Performed By: #### P OCTEGLO ####AYDEE Bruce ([id number])[facility] ([facility])[address] [place] [address] Clot formation.kaolin induced 0.8 min Normal 0.8-2.1 [facility] Comment on above: Performed By: #### P OCTEGLO ####AYDEE Bruce ([id number])[facility] ([facility])[address] [place] [address] Clot initiation.kaolin induced 5.9 min Normal 4.6-9.1 [facility] Comment on above: Performed By: #### P OCTEGLO ####AYDEE Bruce ([id number])[facility] ([facility])[address] [place] [address] Clot initiation.kaolin induced^post heparin neutralization 5.8 min Normal 4.3-8.3 [facility] Comment on above: Performed By: #### P OCTEGLO ####AYDEE Bruce ([id number])[facility] ([facility])[address] [place] [address] Fibrinogen 814 mg/dL High 278-581 [facility] Comment on above: Performed By: #### P OCTEGLO ####AYDEE Bruce ([id number])[facility] ([facility])[address] [place] [address] Maximum clot strength amplitude.kaolin induced 74.0 mm High 52.0-69.0 [facility] Comment on above: Performed By: #### P OCTEGLO ####AYDEE Bruce ([id number])[facility] ([facility])[address] [place] [address] Maximum clot strength amplitude.kaolin+tiss ue factor induced 73.0 mm High 52.0-70.0 [facility] Comment on above: Performed By: #### P OCTEGLO ####AYDEE Bruce ([id number])[facility] ([facility])[address] [place] [address] Maximum clot strength amplitude.tissue factor induced+platelet glycoprotein IIb-IIIa receptor inhibited 45.0 mm High 15.0-32.0 [facility] Comment on above: Performed By: #### P OCTEGLO ####AYDEE BAZZI L ([id number])[facility] ([facility])[address] [place] [address] Basic metabolic 2000 panelon 10-16-2024 Anion gap [Moles/Vol] 22 mmol/L High 10-20 [facility] Comment on above: Performed By: #### 2 4321-2 ####AYDEE Bruce ([id number])[facility] ([facility])[address] [place] [address] Calcium [Mass/Vol] 8.7 mg/dL Normal 8.6-10.6 [facility] Comment on above: Performed By: #### 2 4321-2 ####AYDEE BAZZI L ([id number])[facility] ([facility])[address] [place] [address] Chloride [Moles/Vol] 87 mmol/L Low 98-107 [facility] Comment on above: Performed By: #### 2 4321-2 ####AYDEE BAZZI L ([id number])[facility] ([facility])[address] [place] [address] CO2 [Moles/Vol] 19 mmol/L Low 21-32 [facility] Comment on above: Performed By: #### 2 4321-2 ####AYDEE BAZZI L ([id number])[facility] ([facility])[address] [place] [address] Creatinine [Mass/Vol] 4.33 mg/dL High 0.50-1.05 [facility] Comment on above: Performed By: #### 2 4321-2 ####AYDEE BAZZI L ([id number])[facility] ([facility])[address] [place] [address] Glomerular filtration rate 11 mL/min/1.73m*2 Low >60 [facility] Comment on above: Result Comment: Calc ulations of estimated GFR are performed using the 2020 CKD-EPI Study Refit equation without the race variable for the IDMS-Traceable creatinine methods.https://jasn.asnjournals.org/content// N.2119878320 Performed By: #### 2 4321-2 ####AYDEE Bruce ([id number])[facility] ([facility])[address] [place] [address] Glucose [Mass/Vol] 82 mg/dL Normal 74-99 [facility] Comment on above: Performed By: #### 2 4321-2 ####AYDEE BAZZI L ([id number])[facility] ([facility])[address] [place] [address] Potassium [Moles/Vol] 4.4 mmol/L Normal 3.5-5.3 [facility] Comment on above: Performed By: #### 2 4321-2 ####AYDEE BAZZI L ([id number])[facility] ([facility])[address] [place] [address] Sodium [Moles/Vol] 124 mmol/L Low 136-145 [facility] Comment on above: Performed By: #### 2 4321-2 ####AYDEE CAMILOMOTZER L ([id number])[facility] ([facility])[address] [place] [address] Urea nitrogen [Mass/Vol] 86 mg/dL High 6-23 [facility] Comment on above: Performed By: #### 2 4321-2 ####AYDEE CAMILOMOTZLILIANA L ([id number])[facility] ([facility])[address] [place] [address] Blood type and Indirect anti body screen panel (Bld)on 10-16-2024 ABO group Nom (Bld) B Normal [facility] Comment on above: Performed By: #### 3 4532-2 ####AYDEE Bruce ([id number])[facility] ([facility])[address] [address] Blood group antibody screen Ql Negative [facility] Comment on above: Performed By: #### 3 4532-2 ####AYDEE Bruce ([id number])[facility] ([facility])[address] [place] [address] D Ag Ql (Bld) Positive [facility] Comment on above: Performed By: #### 3 4532-2 ####AYDEE Bruce ([id number])[facility] ([facility])[address] [place] [address] CBC W Auto Differential pane l (Bld)on 10-16-2024 Basophils (Bld) [#/Vol] 0.11 x10*3/uL High 0.00-0.10 [facility] Comment on above: Performed By: #### 5 7021-8 ####AYDEE Bruce ([id number])[facility] ([facility])[address] [place] [address] Basophils/100 WBC (Bld) 1.7 % Normal 0.0-2.0 [facility] Comment on above: Performed By: #### 5 7021-8 ####AYDEE Bruce ([id number])[facility] ([facility])[address] [place] [address] Eosinophils (Bld) [#/Vol] 1.21 x10*3/uL High 0.00-0.70 [facility] Comment on above: Performed By: #### 5 7021-8 ####AYDEE BAZZI L ([id number])[facility] ([facility])[address] [place] [address] Eosinophils/100 WBC (Bld) 18.4 % Normal 0.0-6.0 [facility] Comment on above: Performed By: #### 5 7021-8 ####AYDEE Bruce ([id number])[facility] ([facility])[address] [place] [address] Erythrocyte distribution width (RBC) [Ratio] 16.7 % High 11.5-14.5 [facility] Comment on above: Performed By: #### 5 7021-8 ####AYDEE Bruce ([id number])[facility] ([facility])[address] [place] [address] Hematocrit (Bld) [Volume fraction] 24.5 % Low 36.0-46.0 [facility] Comment on above: Performed By: #### 5 7021-8 ####AYDEE Bruce ([id number])[facility] ([facility])[address] [place] [address] Hemoglobin (Bld) [Mass/Vol] 8.3 g/dL Low 12.0-16.0 [facility] Comment on above: Performed By: #### 5 7021-8 ####AYDEE Bruce ([id number])[facility] ([facility])[address] [place] [address] Immature granulocytes (Bld) [#/Vol] 0.06 x10*3/uL Normal 0.00-0.70 [facility] Comment on above: Performed By: #### 5 7021-8 ####AYDEE Bruce ([id number])[facility] ([facility])[address] [place] [address] Immature granulocytes/100 WBC (Bld) 0.9 % Normal 0.0-0.9 [facility] Comment on above: Result Comment: Doris ture Granulocyte Count (IG) includes promyelocytes, myelocytes and metamyelocytes but does not include bands. Percent differential counts (%) should be interpreted in the context of the absolute cell counts (cells/UL). Performed By: #### 5 7021-8 ####AYDEE Bruce ([id number])[facility] ([facility])[address] [place] [address] Lymphocytes (Bld) [#/Vol] 1.72 x10*3/uL Normal 1.20-4.80 [facility] Comment on above: Performed By: #### 5 7021-8 ####AYDEE Bruce ([id number])[facility] ([facility])[address] [place] [address] Lymphocytes/100 WBC (Bld) 26.2 % Normal 13.0-44.0 [facility] Comment on above: Performed By: #### 5 7021-8 ####AYDEE Bruce ([id number])[facility] ([facility])[address] [place] [address] MCH (RBC) [Entitic mass] 30.5 pg Normal 26.0-34.0 [facility] Comment on above: Performed By: #### 5 7021-8 ####AYDEE Bruce ([id number])[facility] ([facility])[address] [place] [address] MCHC (RBC) [Mass/Vol] 33.9 g/dL Normal 32.0-36.0 [facility] Comment on above: Performed By: #### 5 7021-8 ####AYDEE Bruce ([id number])[facility] ([facility])[address] [place] [address] MCV (RBC) [Entitic vol] 90 fL Normal 80-100 [facility] Comment on above: Performed By: #### 5 7021-8 ####AYDEE Bruce ([id number])[facility] ([facility])[address] [place] [address] Monocytes (Bld) [#/Vol] 0.91 x10*3/uL Normal 0.10-1.00 [facility] Comment on above: Performed By: #### 5 7021-8 ####AYDEE Bruce ([id number])[facility] ([facility])[address] [place] [address] Monocytes/100 WBC (Bld) 13.9 % Normal 2.0-10.0 [facility] Comment on above: Performed By: #### 5 7021-8 ####AYDEE Bruce ([id number])[facility] ([facility])[address] [place] [address] Neutrophils (Bld) [#/Vol] 2.55 x10*3/uL Normal 1.20-7.70 [facility] Comment on above: Result Comment: Perc ent differential counts (%) should be interpreted in the context of the absolute cell counts (cells/uL). Performed By: #### 5 7021-8 ####AYDEE Bruce ([id number])[facility] ([facility])[address] [place] [address] Neutrophils/100 WBC (Bld) 38.9 % Normal 40.0-80.0 [facility] Comment on above: Performed By: #### 5 7021-8 ####AYDEE Bruce ([id number])[facility] ([facility])[address] [place] [address] Nucleated RBC/100 WBC (Bld) [Ratio] 0.3 /100 WBCs High 0.0-0.0 [facility] Comment on above: Performed By: #### 5 7021-8 ####AYDEE Bruce ([id number])[facility] ([facility])[address] [place] [address] Platelets (Bld) [#/Vol] 355 x10*3/uL Normal 150-450 [facility] Comment on above: Performed By: #### 5 7021-8 ####AYDEE Bruce ([id number])[facility] ([facility])[address] [place] [address] RBC (Bld) [#/Vol] 2.72 x10*6/uL Low 4.00-5.20 [facility] Comment on above: Performed By: #### 5 7021-8 ####AYDEE BAZZI L ([id number])[facility] ([facility])[address] [place] [address] WBC (Bld) [#/Vol] 6.6 x10*3/uL Normal 4.4-11.3 [facility] Comment on above: Performed By: #### 5 7021-8 ####AYDEE Bruce ([id number])[facility] ([facility])[address] [place] [address] CBC panel Auto (Bld)on 10-16 Erythrocyte distribution width (RBC) [Ratio] 16.9 % High 11.5-14.5 [facility] Comment on above: Performed By: #### 5 8410-2 ####AYDEE Bruce ([id number])[facility] ([facility])[address] [place] [address] Hematocrit (Bld) [Volume fraction] 24.7 % Low 36.0-46.0 [facility] Comment on above: Performed By: #### 5 8410-2 ####AYDEE Bruce ([id number])[facility] ([facility])[address] [place] [address] Hemoglobin (Bld) [Mass/Vol] 8.2 g/dL Low 12.0-16.0 [facility] Comment on above: Performed By: #### 5 8410-2 ####AYDEE Bruce ([id number])[facility] ([facility])[address] [place] [address] MCH (RBC) [Entitic mass] 29.8 pg Normal 26.0-34.0 [facility] Comment on above: Performed By: #### 5 8410-2 ####AYDEE Bruce ([id number])[facility] ([facility])[address] [place] [address] MCHC (RBC) [Mass/Vol] 33.2 g/dL Normal 32.0-36.0 [facility] Comment on above: Performed By: #### 5 8410-2 ####AYDEE Bruce (38266)[facility] ([facility])[address] [place] [address] MCV (RBC) [Entitic vol] 90 fL Normal 80-100 [facility] Comment on above: Performed By: #### 5 8410-2 ####AYDEE Bruce (87527)[facility] ([facility])[address] [place] [address] Nucleated RBC/100 WBC (Bld) [Ratio] 0.0 /100 WBCs Normal 0.0-0.0 [facility] Comment on above: Performed By: #### 5 8410-2 ####AYDEE Bruce (75876)[facility] ([facility])[address] [place] [address] Platelets (Bld) [#/Vol] 379 x10*3/uL Normal 150-450 [facility] Comment on above: Performed By: #### 5 8410-2 ####AYDEE Bruce ([id number])[facility] ([facility])[address] [place] [address] RBC (Bld) [#/Vol] 2.75 x10*6/uL Low 4.00-5.20 [facility] Comment on above: Performed By: #### 5 8410-2 ####AYDEE Bruce ([id number])[facility] ([facility])[address] [place] [address] WBC (Bld) [#/Vol] 4.2 x10*3/uL Low 4.4-11.3 [facility] Comment on above: Performed By: #### 5 8410-2 ####AYDEE Bruce ([id number])[facility] ([facility])[address] [place] [address] Glucose Test strip manual (B ld) [Mass/Vol]on 10-16-2024 Glucose [Mass/Vol] 98 mg/dL Normal 74-99 [facility] Comment on above: Performed By: #### 2 341-6 ####AYDEE Bruce ([id number])[facility] ([facility])[address] [place] [address] Glucose [Mass/Vol] 102 mg/dL High 74-99 [facility] Comment on above: Performed By: #### 2 341-6 ####AYDEE Bruce ([id number])[facility] ([facility])[address] [place] [address] Glucose [Mass/Vol] 91 mg/dL Normal 74-99 [facility] Comment on above: Performed By: #### 2 341-6 ####AYDEE Bruce ([id number])[facility] ([facility])[address] [place] [address] Glucose [Mass/Vol] 84 mg/dL Normal 74-99 [facility] Comment on above: Performed By: #### 2 341-6 ####AYDEE Bruce ([id number])[facility] ([facility])[address] [place] [address] Heparin.unfractionatedon Heparin unfractionated Chromogenic method Qn (PPP) 0.4 IU/mL Normal See Comment Below for Therapeutic Ranges [facility] Comment on above: Order Comment: Obtai [...] please refer to local Pharmacy and the [facility] Guidelines for Anticoagulation Therapy available on the [facility] intranet at: [email or web address] Performed By: #### 3 274-8 ####AYDEE Bruce ([id number])[facility] ([facility])[address] [place] [address] Hepatic function 2000 panelo n 10-16-2024 Albumin BCP dye [Mass/Vol] 2.9 g/dL Low 3.4-5.0 [facility] Comment on above: Performed By: #### 2 4325-3 ####AYDEE Bruce ([id number])[facility] ([facility])[address] [place] [address] ALP [Catalytic activity/Vol] 214 U/L High 33-136 [facility] Comment on above: Performed By: #### 2 4325-3 ####AYDEE Bruce ([id number])[facility] ([facility])[address] [place] [address] ALT With P-5'-P [Catalytic activity/Vol] 21 U/L Normal 7-45 [facility] Comment on above: Result Comment: Susan ents treated with Sulfasalazine may generate falsely decreased results for ALT. Performed By: #### 2 4325-3 ####AYDEE Bruce ([id number])[facility] ([facility])[address] [place] [address] AST With P-5'-P [Catalytic activity/Vol] 23 U/L Normal 9-39 [facility] Comment on above: Performed By: #### 2 4325-3 ####AYDEE Bruce ([id number])[facility] ([facility])[address] [place] [address] Bilirubin [Mass/Vol] 1.3 mg/dL High 0.0-1.2 [facility] Comment on above: Performed By: #### 2 4325-3 ####AYDEE Bruce (91814)[facility] ([facility])[address] [place] [address] Bilirubin.direct [Mass/Vol] 0.4 mg/dL High 0.0-0.3 [facility] Comment on above: Performed By: #### 2 4325-3 ####AYDEE Bruce ([id number])[facility] ([facility])[address] [place] [address] Protein [Mass/Vol] 5.4 g/dL Low 6.4-8.2 [facility] Comment on above: Performed By: #### 2 4325-3 ####AYDEE Bruce (50857)[facility] ([facility])[address] [place] [address] IR CVC TUNNELEDon 10-16-2024 IR CVC TUNNELED Normal [facility] Magnesiumon 10-16-2024 Magnesium [Mass/Vol] 1.94 mg/dL Normal 1.60-2.40 [facility] Comment on above: Performed By: #### 1 9123-9 ####AYDEE Bruce ([id number])[facility] ([facility])[address] [place] [address] Magnesium [Mass/Vol] 2.27 mg/dL Normal 1.60-2.40 [facility] Comment on above: Performed By: #### 1 9123-9 ####AYDEE Bruce ([id number])[facility] ([facility])[address] [place] [address] Phosphateon 10-16-2024 Phosphate [Mass/Vol] 5.8 mg/dL High 2.5-4.9 [facility] Comment on above: Performed By: #### 2 777-1 ####AYDEE Bruce ([id number])[facility] ([facility])[address] [place] [address] Renal function 2000 panelon 10-16-2024 Albumin BCP dye [Mass/Vol] 2.9 g/dL Low 3.4-5.0 [facility] Comment on above: Performed By: #### 2 4362-6 ####AYDEE Bruce ([id number])[facility] ([facility])[address] [place] [address] Anion gap [Moles/Vol] 20 mmol/L Normal 10-20 [facility] Comment on above: Performed By: #### 2 4362-6 ####AYDEE Bruce ([id number])[facility] ([facility])[id number] [place] [address] Calcium [Mass/Vol] 8.1 mg/dL Low 8.6-10.6 [facility] Comment on above: Performed By: #### 2 4362-6 ####AYDEE Bruce ([id number])[facility] ([facility])[address] [place] [address] Chloride [Moles/Vol] 90 mmol/L Low 98-107 [facility] Comment on above: Performed By: #### 2 4362-6 ####AYDEE Bruce ([id number])[facility] ([facility])[address] [place] [address] CO2 [Moles/Vol] 23 mmol/L Normal 21-32 [facility] Comment on above: Performed By: #### 2 4362-6 ####AYDEE Bruce ([id number])[facility] ([facility])[address] [place] [address] Creatinine [Mass/Vol] 1.58 mg/dL High 0.50-1.05 [facility] Comment on above: Performed By: #### 2 4362-6 ####AYDEE Bruce ([id number])[facility] ([facility])[address] [place] [address] Glomerular filtration rate 36 mL/min/1.73m*2 Low >60 [facility] [facility] Comment on above: Result Comment: Calc ulations of estimated GFR are performed using the 2020 CKD-EPI Study Refit equation without the race variable for the IDMS-Traceable creatinine methods.https://jasn.asnjournals.org/content/early/ N.1424880725 Performed By: #### 2 4362-6 ####AYDEE Bruce ([id number])[facility] ([facility])[address] [place] [address] Glucose [Mass/Vol] 98 mg/dL Normal 74-99 [facility] Comment on above: Performed By: #### 2 4362-6 ####AYDEE Bruce ([id number])[facility] ([facility])[address] [place] [address] Phosphate [Mass/Vol] 2.1 mg/dL Low 2.5-4.9 [facility] Comment on above: Performed By: #### 2 4362-6 ####AYDEE Bruce ([id number])[facility] ([facility])[address] [place] [address] Potassium [Moles/Vol] 3.6 mmol/L Normal 3.5-5.3 [facility] Comment on above: Performed By: #### 2 4362-6 ####AYDEE Bruce ([id number])[facility] ([facility])[address] [place] [address] Sodium [Moles/Vol] 129 mmol/L Low 136-145 [facility] Comment on above: Performed By: #### 2 4362-6 ####AYDEE Bruce ([id number])[facility] ([facility])[address] [place] [address] Urea nitrogen [Mass/Vol] 22 mg/dL Normal 6-23 [facility] Comment on above: Performed By: #### 2 4362-6 ####AYDEE Bruce ([id number])[facility] ([facility])[address] [place] [address] Basic metabolic 2000 panelon 10-15-2024 Anion gap [Moles/Vol] 17 mmol/L Normal 10-20 [facility] Comment on above: Performed By: #### 2 4321-2 ####AYDEE Bruce ([id number])[facility] ([facility])[address] [place] [address] Calcium [Mass/Vol] 9.1 mg/dL Normal 8.6-10.6 [facility] Comment on above: Performed By: #### 2 4321-2 ####AYDEE BAZZI L ([id number])[facility] ([facility])[address] [place] [address] Chloride [Moles/Vol] 87 mmol/L Low 98-107 [facility] Comment on above: Performed By: #### 2 4321-2 ####AYDEE Bruce ([id number])[facility] ([facility])[address] [place] [address] CO2 [Moles/Vol] 24 mmol/L Normal 21-32 [facility] Comment on above: Performed By: #### 2 4321-2 ####AYDEE Bruce ([id number])[facility] ([facility])[address] [place] [address] Creatinine [Mass/Vol] 3.42 mg/dL High 0.50-1.05 [facility] Comment on above: Performed By: #### 2 4321-2 ####AYDEE BAZZI L ([id number])[facility] ([facility])[address] [place] [address] Glomerular filtration rate 14 mL/min/1.73m*2 Low >60 [facility] Comment on above: Result Comment: Calc ulations of estimated GFR are performed using the 2020 CKD-EPI Study Refit equation without the race variable for the IDMS-Traceable creatinine methods.https://jasn.asnjournals.org/content/early// N.4655612166 Performed By: #### 2 4321-2 ####AYDEE Bruce ([id number])[facility] ([facility])[address] [place] [address] Glucose [Mass/Vol] 121 mg/dL High 74-99 [facility] Comment on above: Performed By: #### 2 4321-2 ####AYDEE Bruce ([id number])[facility] ([facility])[address] [place] [address] Potassium [Moles/Vol] 4.0 mmol/L Normal 3.5-5.3 [facility] Comment on above: Performed By: #### 2 4321-2 ####YADEE BAZZI L ([id number])[facility] ([facility])[address] [place] [address] Sodium [Moles/Vol] 124 mmol/L Low 136-145 [facility] Comment on above: Performed By: #### 2 4321-2 ####AYDEE Bruce ([id number])[facility] ([facility])[address] [place] [address] Urea nitrogen [Mass/Vol] 73 mg/dL High 6-23 [facility] Comment on above: Performed By: #### 2 4321-2 ####AYDEE Bruce ([id number])[facility] ([facility])[address] [place] [address] CBC W Auto Differential pane l (Bld)on 10-15-2024 Erythrocyte distribution width (RBC) [Ratio] 16.8 % High 11.5-14.5 [facility] Comment on above: Order Comment: The [...] Performed By: #### 5 7021-8 ####AYDEE Bruce ([id number])[facility] ([facility])[address] [place] [address] Hematocrit (Bld) [Volume fraction] 25.7 % Low 36.0-46.0 [facility] Comment on above: Order Comment: The [...] Performed By: #### 5 7021-8 ####AYDEE Bruce ([id number])[facility] ([facility])[address] [place] [address] Hemoglobin (Bld) [Mass/Vol] 8.5 g/dL Low 12.0-16.0 [facility] Comment on above: Order Comment: The [...] Performed By: #### 5 7021-8 ####AYDEE Bruce ([id number])[facility] ([facility])[address] [place] [address] Immature granulocytes (Bld) [#/Vol] 0.09 x10*3/uL Normal 0.00-0.70 [facility] Comment on above: Order Comment: The [...] Performed By: #### 5 7021-8 ####AYDEE Bruce ([id number])[facility] ([facility])[address] [place] [address] Immature granulocytes/100 WBC (Bld) 1.1 % High 0.0-0.9 [facility] Comment on above: Order Comment: The [...] Performed By: #### 5 7021-8 ####AYDEE Bruce ([id number])[facility] ([facility])[address] [place] [address] MCH (RBC) [Entitic mass] 30.4 pg Normal 26.0-34.0 [facility] Comment on above: Order Comment: The [...] Performed By: #### 5 7021-8 ####AYDEE Bruce ([id number])[facility] ([facility])[address] [place] [address] MCHC (RBC) [Mass/Vol] 33.1 g/dL Normal 32.0-36.0 [facility] Comment on above: Order Comment: The [...] Performed By: #### 5 7021-8 ####AYDEE Bruce ([id number])[facility] ([facility])[address] [place] [address] MCV (RBC) [Entitic vol] 92 fL Normal 80-100 [facility] Comment on above: Order Comment: The [...] Performed By: #### 5 7021-8 ####AYDEE Bruce (45375)[facility] ([facility])[address] [place] [address] Nucleated RBC/100 WBC (Bld) [Ratio] 0.0 /100 WBCs Normal 0.0-0.0 [facility] Comment on above: Order Comment: The [...] Performed By: #### 5 7021-8 ####AYDEE Bruce (84714)[facility] ([facility])[address] [place] [address] Platelets (Bld) [#/Vol] 314 x10*3/uL Normal 150-450 [facility] Comment on above: Order Comment: The [...] Performed By: #### 5 7021-8 ####AYDEE Bruce ([id number])[facility] ([facility])[address] [place] [address] RBC (Bld) [#/Vol] 2.80 x10*6/uL Low 4.00-5.20 [facility] Comment on above: Order Comment: The p [...] By: #### 5 7021-8 ####AYDEE CAMILOMOGILBERTOER L (42700)[facility] ([facility])[address] [place] [address] WBC (Bld) [#/Vol] 8.1 x10*3/uL Normal 4.4-11.3 [facility] Comment on above: Order Comment: [...] Performed By: #### 5 7021-8 ####AYDEE Bruce ([id number])[facility] ([facility])[address] [place] [address] CT ABDOMEN PELVIS WO IV CONT RASTon 10-15-2024 CT ABDOMEN PELVIS WO IV CONTRAST Normal [facility] Glucose Test strip manual (B ld) [Mass/Vol]on 10-15-2024 Glucose [Mass/Vol] 102 mg/dL High 74-99 [facility] Comment on above: Performed By: #### 2 341-6 ####AYDEE Bruce (12769)[facility] ([facility])[address] [place] [address] Glucose [Mass/Vol] 121 mg/dL High 74-99 [facility] Comment on above: Performed By: #### 2 341-6 ####AYDEE Bruce ([id number])[facility] ([facility])[address] [place] [address] Heparin.unfractionatedon Heparin unfractionated Chromogenic method Qn (PPP) 0.3 IU/mL Normal See Comment Below for Therapeutic Ranges [facility] Comment on above: Order Comment: Obtai [...] please refer to local Pharmacy and the [facility] Guidelines for Anticoagulation Therapy available on the [facility] intranet at: [email or web address] Performed By: #### 3 274-8 ####AYDEE Bruce ([id number])[facility] ([facility])[address] [place] [address] Hepatic function 2000 panelo n 10-15-2024 Albumin BCP dye [Mass/Vol] 3.0 g/dL Low 3.4-5.0 [facility] Comment on above: Performed By: #### 2 4325-3 ####AYDEE Bruce ([id number])[facility] ([facility])[address] [place] [address] ALP [Catalytic activity/Vol] 249 U/L High 33-136 [facility] Comment on above: Performed By: #### 2 4325-3 ####AYDEE Bruce ([id number])[facility] ([facility])[address] [place] [address] ALT With P-5'-P [Catalytic activity/Vol] 23 U/L Normal 7-45 [facility] Comment on above: Result Comment: Susan ents treated with Sulfasalazine may generate falsely decreased results for ALT. Performed By: #### 2 4325-3 ####AYDEE Bruce ([id number])[facility] ([facility])[address] [place] [address] AST With P-5'-P [Catalytic activity/Vol] 25 U/L Normal 9-39 [facility] Comment on above: Performed By: #### 2 4325-3 ####AYDEE Bruce ([id number])[facility] ([facility])[address] [place] [address] Bilirubin [Mass/Vol] 1.4 mg/dL High 0.0-1.2 [facility] Comment on above: Performed By: #### 2 4325-3 ####AYDEE Bruce (14743)[facility] ([facility])[address] [place] [address] Bilirubin.direct [Mass/Vol] 0.5 mg/dL High 0.0-0.3 [facility] Comment on above: Performed By: #### 2 4325-3 ####AYDEE Bruce (06574)[facility] ([facility])[address] [place] [address] Protein [Mass/Vol] 6.0 g/dL Low 6.4-8.2 [facility] Comment on above: Performed By: #### 2 4325-3 ####AYDEE Bruce (95999)[facility] ([facility])[address] [place] [address] Magnesiumon 10-15-2024 Magnesium [Mass/Vol] 2.17 mg/dL Normal 1.60-2.40 [facility] Comment on above: Performed By: #### 1 9123-9 ####AYDEE Bruce (65464)[facility] ([facility])[address] [place] [address] Manual differential performe d Ql (Bld)on 10-15-2024 Band form neutrophils (Bld) [#/Vol] 1.22 x10*3/uL High 0.00-0.70 [facility] Comment on above: Performed By: #### 5 0957-0 ####AYDEE Bruce (35148)[facility] ([facility])[address] [place] [address] Band form neutrophils/100 WBC (Bld) 15.0 % Normal 0.0-5.0 [facility] Comment on above: Performed By: #### 5 0957-0 ####AYDEE Bruce (66783)[facility] ([facility])[address] [place] [address] Basophils (Bld) [#/Vol] 0.15 x10*3/uL High 0.00-0.10 [facility] Comment on above: Performed By: #### 5 0957-0 ####AYDEE Bruce (42096)[facility] ([facility])[address] [place] [address] Basophils/100 WBC (Bld) 1.8 % Normal 0.0-2.0 [facility] Comment on above: Performed By: #### 5 0957-0 ####AYDEE Bruce (25081)[facility] ([facility])[address] [place] [address] Blasts Manual cnt (Bld) [#/Vol] 0.00 x10*3/uL Normal 0.00-0.00 [facility] Comment on above: Performed By: #### 5 0957-0 ####AYDEE Bruce ([id number])[facility] ([facility])[address] [place] [address] Blasts/100 WBC (Bld) 0.0 % Normal 0.0-0.0 [facility] Comment on above: Performed By: #### 5 57-0 ####AYDEE Bruce (83691)[facility] ([facility])[address] [place] [address] Nory cells LM Ql (Bld) Few [facility] Comment on above: Performed By: #### 5 57-0 ####AYDEE Bruce (07260)[facility] ([facility])[address] [place] [address] Cells Counted Total (Bld) [#] 113 Normal [facility] Comment on above: Performed By: #### 5 57-0 ####AYDEE Bruce ([id number])[facility] ([facility])[address] [place] [address] Eosinophils (Bld) [#/Vol] 1.79 x10*3/uL High 0.00-0.70 [facility] Comment on above: Performed By: #### 5 0957-0 ####AYDEE Bruce ([id number])[facility] ([facility])[address] [place] [address] Eosinophils/100 WBC (Bld) 22.1 % Normal 0.0-6.0 [facility] Comment on above: Performed By: #### 5 0957-0 ####AYDEE Bruce (44931)[facility] ([facility])[address] [place] [address] Lymphocytes (Bld) [#/Vol] 1.65 x10*3/uL Normal 1.20-4.80 [facility] Comment on above: Performed By: #### 5 57-0 ####AYDEE Bruce (68778)[facility] ([facility])[address] [place] [address] Lymphocytes/100 WBC (Bld) 20.4 % Normal 13.0-44.0 [facility] Comment on above: Performed By: #### 5 57-0 ####AYDEE Bruce (76250)[facility] ([facility])[address] [place] [address] Metamyelocytes (Bld) [#/Vol] 0.00 x10*3/uL Normal 0.00-0.00 [facility] Comment on above: Performed By: #### 5 57-0 ####AYDEE Bruce (77952)[facility] ([facility])[address] [place] [address] Metamyelocytes/100 WBC (Bld) 0.0 % Normal 0.0-0.0 [facility] Comment on above: Performed By: #### 5 57-0 ####AYDEE Bruce (53338)[facility] ([facility])[address] [place] [address] Monocytes (Bld) [#/Vol] 0.50 x10*3/uL Normal 0.10-1.00 [facility] Comment on above: Performed By: #### 5 57-0 ####AYDEE Bruce (39550)[facility] ([facility])[address] [place] [address] Monocytes/100 WBC (Bld) 6.2 % Normal 2.0-10.0 [facility] Comment on above: Performed By: #### 5 57-0 ####AYDEE Bruce ([id number])[facility] ([facility])[address] [place] [address] Myelocytes (Bld) [#/Vol] 0.00 x10*3/uL Normal 0.00-0.00 [facility] Comment on above: Performed By: #### 5 57-0 ####AYDEE Bruce (33434)[facility] ([facility])[address] [place] [address] Myelocytes/100 WBC (Bld) 0.0 % Normal 0.0-0.0 [facility] Comment on above: Performed By: #### 5 57-0 ####AYDEE Bruce (32235)[facility] ([facility])[address] [place] [address] Neutrophils (Bld) [#/Vol] 3.94 x10*3/uL Normal 1.20-7.70 [facility] Comment on above: Performed By: #### 5 57-0 ####AYDEE Bruce (73398)[facility] ([facility])[address] [place] [address] Nucleated RBC/100 WBC (Bld) [Ratio] 0.0 % Normal 0.0-0.0 [facility] Comment on above: Performed By: #### 5 57-0 ####AYDEE Bruce (85693)[facility] ([facility])[address] [place] [address] Plasma cells (Bld) [#/Vol] 0.00 x10*3/uL Normal 0.00-0.00 [facility] Comment on above: Performed By: #### 5 57-0 ####AYDEE Bruce ([id number])[facility] ([facility])[address] [place] [address] Plasma cells/100 WBC Manual cnt (Bld) 0.0 % Normal 0.00-0.00 [facility] Comment on above: Performed By: #### 5 57-0 ####AYDEE Bruce (78525)[facility] ([facility])[address] [place] [address] Polychromasia LM Ql (Bld) Marked Normal [facility] Comment on above: Performed By: #### 5 0957-0 ####AYDEE Bruce (15225)[facility] ([facility])[address] [place] [address] Promyelocytes (Bld) [#/Vol] 0.00 x10*3/uL Normal 0.00-0.00 [facility] Comment on above: Performed By: #### 5 0957-0 ####AYDEE Bruce ([id number])[facility] ([facility])[address] [place] [address] Promyelocytes/100 WBC (Bld) 0.0 % Normal 0.0-0.0 [facility] Comment on above: Performed By: #### 5 0957-0 ####AYDEE Bruce (79031)[facility] ([facility])[address] [place] [address] RBC morphology finding Nom (Bld) See Below [facility] Comment on above: Performed By: #### 5 0957-0 ####AYDEE Bruce (79830)[facility] ([facility])[address] [place] [address] Segmented neutrophils (Bld) [#/Vol] 2.72 x10*3/uL Normal 1.20-7.00 [facility] Comment on above: Performed By: #### 5 0957-0 ####AYDEE Bruce (25551)[facility] ([facility])[address] [place] [address] Segmented neutrophils/100 WBC (Bld) 33.6 % Normal 40.0-80.0 [facility] Comment on above: Result Comment: Perc ent differential counts (%) should be interpreted in the context of the absolute cell counts (cells/uL). Performed By: #### 5 0957-0 ####AYDEE Bruce (49964)[facility] ([facility])[address] [place] [address] Variant lymphocytes (Bld) [#/Vol] 0.07 x10*3/uL Normal 0.00-0.50 [facility] Comment on above: Performed By: #### 5 0957-0 ####AYDEE Bruce ([id number])[facility] ([facility])[address] [place] [address] Variant lymphocytes/100 WBC (Bld) 0.9 % Normal 0.0-2.0 [facility] Comment on above: Performed By: #### 5 0957-0 ####AYDEE Bruce ([id number])[facility] ([facility])[address] [place] [address] WBC other Manual cnt (Bld) [#/Vol] 0.00 x10*3/uL Normal [facility] Comment on above: Performed By: #### 5 0957-0 ####AYDEE Bruce (83274)[facility] ([facility])[address] [place] [address] WBC other/100 WBC (Bld) 0.0 % Normal [facility] Comment on above: Performed By: #### 5 0957-0 ####AYDEE Bruce (77153)[facility] ([facility])[address] [place] [address] Observationon 10-15-2024 Osmolality [Osmolality] 292 mosm/kg Normal 280-300 [facility] Comment on above: Performed By: #### 2 692-2 ####AYDEE Bruce ([id number])[facility] ([facility])[address] [place] [address] Phosphateon 10-15-2024 Phosphate [Mass/Vol] 4.1 mg/dL Normal 2.5-4.9 [facility] Comment on above: Performed By: #### 2 777-1 ####AYDEE Bruce (34610)[facility] ([facility])[address] [place] [address] XR ABDOMEN 1 VIEWon 10-16-19 25 XR ABDOMEN 1 VIEW Normal [facility] Basic metabolic 2000 panelon 10-14-2024 Anion gap [Moles/Vol] 16 mmol/L Normal 10-20 [facility] Comment on above: Performed By: #### 2 4321-2 ####AYDEE ZHONGER L ([id number])[facility] ([facility])[address] [place] [address] Calcium [Mass/Vol] 8.7 mg/dL Normal 8.6-10.6 [facility] Comment on above: Performed By: #### 2 4321-2 ####AYDEE CAMILOMOTZER L (95581)[facility] ([facility])[address] [place] [address] Chloride [Moles/Vol] 90 mmol/L Low 98-107 [facility] Comment on above: Performed By: #### 2 4321-2 ####AYDEE CAMILOMOTZER L (77404)[facility] ([facility])[address] [place] [address] CO2 [Moles/Vol] 26 mmol/L Normal 21-32 [facility] Comment on above: Performed By: #### 2 4321-2 ####AYDEE CAMILOMOTZER L (49334)[facility] ([facility])[address] [place] [address] Creatinine [Mass/Vol] 2.79 mg/dL High 0.50-1.05 [facility] Comment on above: Performed By: #### 2 4321-2 ####AYDEE CAMILOMOTZER L (90322)[facility] ([facility])[address] [place] [address] Glomerular filtration rate 18 mL/min/1.73m*2 Low >60 [facility] Comment on above: Result Comment: Calc ulations of estimated GFR are performed using the 2020 CKD-EPI Study Refit equation without the race variable for the IDMS-Traceable creatinine methods.https://jasn.asnjournals.org/content/early/ N.7749685900 Performed By: #### 2 4321-2 ####AYDEE Bruce ([id number])[facility] ([facility])[address] [place] [address] Glucose [Mass/Vol] 124 mg/dL High 74-99 [facility] Comment on above: Performed By: #### 2 4321-2 ####AYDEE Bruce ([id number])[facility] ([facility])[address] [place] [address] Potassium [Moles/Vol] 4.4 mmol/L Normal 3.5-5.3 [facility] Comment on above: Performed By: #### 2 4321-2 ####AYDEE Bruce ([id number])[facility] ([facility])[address] [place] [address] Sodium [Moles/Vol] 128 mmol/L Low 136-145 [facility] Comment on above: Performed By: #### 2 4321-2 ####AYDEE Bruce ([id number])[facility] ([facility])[address] [place] [address] Urea nitrogen [Mass/Vol] 57 mg/dL High 6-23 [facility] Comment on above: Performed By: #### 2 4321-2 ####AYDEE Bruce ([id number])[facility] ([facility])[address] [place] [address] CBC W Auto Differential pane l (Bld)on 10-14-2024 Basophils (Bld) [#/Vol] 0.10 x10*3/uL Normal 0.00-0.10 [facility] Comment on above: Performed By: #### 5 7021-8 ####AYDEE Bruce ([id number])[facility] ([facility])[address] [place] [address] Basophils/100 WBC (Bld) 1.2 % Normal 0.0-2.0 [facility] Comment on above: Performed By: #### 5 7021-8 ####AYDEE Bruce ([id number])[facility] ([facility])[address] [place] [address] Eosinophils (Bld) [#/Vol] 1.40 x10*3/uL High 0.00-0.70 [facility] Comment on above: Performed By: #### 5 7021-8 ####AYDEE Bruce ([id number])[facility] ([facility])[address] [place] [address] Eosinophils/100 WBC (Bld) 16.8 % Normal 0.0-6.0 [facility] Comment on above: Performed By: #### 5 7021-8 ####AYDEE Bruce ([id number])[facility] ([facility])[id number] [place] [address] Erythrocyte distribution width (RBC) [Ratio] 16.9 % High 11.5-14.5 [facility] Comment on above: Performed By: #### 5 7021-8 ####AYDEE Bruce ([id number])[facility] ([facility])[address] [place] [address] Hematocrit (Bld) [Volume fraction] 25.2 % Low 36.0-46.0 [facility] Comment on above: Performed By: #### 5 7021-8 ####AYDEE rBuce ([id number])[facility] ([facility])[id number] [place] [address] Hemoglobin (Bld) [Mass/Vol] 8.3 g/dL Low 12.0-16.0 [facility] Comment on above: Performed By: #### 5 7021-8 ####AYDEE Bruce ([id number])[facility] ([facility])[address] [place] [address] Immature granulocytes (Bld) [#/Vol] 0.09 x10*3/uL Normal 0.00-0.70 [facility] Comment on above: Performed By: #### 5 7021-8 ####AYDEE Bruce ([id number])[facility] ([facility])[id number] [place] [address] Immature granulocytes/100 WBC (Bld) 1.1 % High 0.0-0.9 [facility] Comment on above: Result Comment: Doris ture Granulocyte Count (IG) includes promyelocytes, myelocytes and metamyelocytes but does not include bands. Percent differential counts (%) should be interpreted in the context of the absolute cell counts (cells/UL). Performed By: #### 5 7021-8 ####AYDEE Bruce ([id number])[facility] ([facility])[address] [place] [address] Lymphocytes (Bld) [#/Vol] 1.42 x10*3/uL Normal 1.20-4.80 [facility] Comment on above: Performed By: #### 5 7021-8 ####AYDEE Bruce ([id number])[facility] ([facility])[address] [place] [address] Lymphocytes/100 WBC (Bld) 17.0 % Normal 13.0-44.0 [facility] Comment on above: Performed By: #### 5 7021-8 ####AYDEE Bruce ([id number])[facility] ([facility])[address] [place] [address] MCH (RBC) [Entitic mass] 30.2 pg Normal 26.0-34.0 [facility] Comment on above: Performed By: #### 5 7021-8 ####AYDEE Bruce ([id number])[facility] ([facility])[address] [place] [address] MCHC (RBC) [Mass/Vol] 32.9 g/dL Normal 32.0-36.0 [facility] Comment on above: Performed By: #### 5 7021-8 ####AYDEE Bruce ([id number])[facility] ([facility])[address] [place] [address] MCV (RBC) [Entitic vol] 92 fL Normal 80-100 [facility] Comment on above: Performed By: #### 5 7021-8 ####AYDEE Bruce ([id number])[facility] ([facility])[address] [place] [address] Monocytes (Bld) [#/Vol] 0.85 x10*3/uL Normal 0.10-1.00 [facility] Comment on above: Performed By: #### 5 7021-8 ####AYDEE Bruce ([id number])[facility] ([facility])[address] [place] [address] Monocytes/100 WBC (Bld) 10.2 % Normal 2.0-10.0 [facility] Comment on above: Performed By: #### 5 7021-8 ####AYDEE Bruce ([id number])[facility] ([facility])[address] [place] [address] Neutrophils (Bld) [#/Vol] 4.49 x10*3/uL Normal 1.20-7.70 [facility] Comment on above: Result Comment: Perc ent differential counts (%) should be interpreted in the context of the absolute cell counts (cells/uL). Performed By: #### 5 7021-8 ####AYDEE Bruce ([id number])[facility] ([facility])[address] [place] [address] Neutrophils/100 WBC (Bld) 53.7 % Normal 40.0-80.0 [facility] Comment on above: Performed By: #### 5 7021-8 ####AYDEE Bruce ([id number])[facility] ([facility])[address] [place] [address] Nucleated RBC/100 WBC (Bld) [Ratio] 0.2 /100 WBCs High 0.0-0.0 [facility] Comment on above: Performed By: #### 5 7021-8 ####AYDEE Bruce ([id number])[facility] ([facility])[address] [place] [address] Platelets (Bld) [#/Vol] 287 x10*3/uL Normal 150-450 [facility] Comment on above: Performed By: #### 5 7021-8 ####AYDEE Bruce ([id number])[facility] ([facility])[address] [place] [address] RBC (Bld) [#/Vol] 2.75 x10*6/uL Low 4.00-5.20 [facility] Comment on above: Performed By: #### 5 7021-8 ####AYDEE Bruce ([id number])[facility] ([facility])[address] [place] [address] WBC (Bld) [#/Vol] 8.4 x10*3/uL Normal 4.4-11.3 [facility] Comment on above: Performed By: #### 5 7021-8 ####AYDEE Bruce ([id number])[facility] ([facility])[address] [place] [address] Cortisol^AM peak specimenon 10-14-2024 Cortisol AM peak specimen [Mass/Vol] 28.2 ug/dL High 5.0-20.0 [facility] Comment on above: Performed By: #### 9 813-7 ####AYDEE Bruce ([id number])[facility] ([facility])[address] [place] [address] Glucose Test strip manual (B ld) [Mass/Vol]on 10-14-2024 Glucose [Mass/Vol] 118 mg/dL High 74-99 [facility] Comment on above: Performed By: #### 2 341-6 ####AYDEE Bruce ([id number])[facility] ([facility])[address] [place] [address] Glucose [Mass/Vol] 109 mg/dL High 74-99 [facility] Comment on above: Performed By: #### 2 341-6 ####AYDEE Bruce ([id number])[facility] ([facility])[address] [place] [address] Glucose [Mass/Vol] 125 mg/dL High 74-99 [facility] Comment on above: Performed By: #### 2 341-6 ####AYDEE Bruce ([id number])[facility] ([facility])[address] [place] [address] Glucose [Mass/Vol] 127 mg/dL High 74-99 [facility] Comment on above: Performed By: #### 2 341-6 ####AYDEE Bruce ([id number])[facility] ([facility])[address] [place] [address] Glucose [Mass/Vol] 128 mg/dL High 74-99 [facility] Comment on above: Performed By: #### 2 341-6 ####YADEE Bruce ([id number])[facility] ([facility])[address] [place] [address] Heparin.unfractionatedon Heparin unfractionated Chromogenic method Qn (PPP) 0.3 IU/mL Normal See Comment Below for Therapeutic Ranges [facility] Comment on above: Order Comment: Obtai [...] please refer to local Pharmacy and the [facility] Guidelines for Anticoagulation Therapy available on the [facility] intranet at: [email or web address] Performed By: #### 3 274-8 ####AYDEE Bruce ([id number])[facility] ([facility])[address] [place] [address] Hepatic function 2000 panelo n 10-14-2024 Albumin BCP dye [Mass/Vol] 2.8 g/dL Low 3.4-5.0 [facility] Comment on above: Performed By: #### 2 4325-3 ####AYDEE Bruce ([id number])[facility] ([facility])[address] [place] [address] ALP [Catalytic activity/Vol] 270 U/L High 33-136 [facility] Comment on above: Performed By: #### 2 4325-3 ####AYDEE Bruce ([id number])[facility] ([facility])[address] [place] [address] ALT With P-5'-P [Catalytic activity/Vol] 25 U/L Normal 7-45 [facility] Comment on above: Result Comment: Susan ents treated with Sulfasalazine may generate falsely decreased results for ALT. Performed By: #### 2 4325-3 ####AYDEE Bruce ([id number])[facility] ([facility])[address] [place] [address] AST With P-5'-P [Catalytic activity/Vol] 27 U/L Normal 9-39 [facility] Comment on above: Performed By: #### 2 4325-3 ####AYDEE Bruce ([id number])[facility] ([facility])[address] [place] [address] Bilirubin [Mass/Vol] 1.5 mg/dL High 0.0-1.2 [facility] Comment on above: Performed By: #### 2 4325-3 ####AYDEE Bruce ([id number])[facility] ([facility])[address] [place] [address] Bilirubin.direct [Mass/Vol] 0.5 mg/dL High 0.0-0.3 [facility] Comment on above: Performed By: #### 2 4325-3 ####AYDEE Bruce ([id number])[facility] ([facility])[address] [place] [address] Protein [Mass/Vol] 5.4 g/dL Low 6.4-8.2 [facility] Comment on above: Performed By: #### 2 4325-3 ####AYDEE Bruce ([id number])[facility] ([facility])[address] [place] [address] MR CARDIAC MORPHOLOGY AND FU NCTION W AND WO IV CONTRASTon 10-14-2024 MR CARDIAC MORPHOLOGY AND FUNCTION W AND WO IV CONTRAST Normal [facility] Magnesiumon 10-14-2024 Magnesium [Mass/Vol] 2.18 mg/dL Normal 1.60-2.40 [facility] Comment on above: Performed By: #### 1 9123-9 ####AYDEE Bruce ([id number])[facility] ([facility])[address] [place] [address] Observationon 10-14-2024 Osmolality [Osmolality] 285 mosm/kg Normal 280-300 [facility] Comment on above: Performed By: #### 2 692-2 ####AYDEE Bruce ([id number])[facility] ([facility])[address] [place] [address] Phosphateon 10-14-2024 Phosphate [Mass/Vol] 3.3 mg/dL Normal 2.5-4.9 [facility] Comment on above: Performed By: #### 2 777-1 ####AYDEE Bruce ([id number])[facility] ([facility])[address] [place] [address] 61503 US RIGHT UPPER QUADRANTon US RIGHT UPPER QUADRANT Normal [facility] Basic metabolic 2000 panelon 10-13-2024 Anion gap [Moles/Vol] 12 mmol/L Normal 10-20 [facility] Comment on above: Performed By: #### 2 4321-2 ####AYDEE Bruce ([id number])[facility] ([facility])[address] [place] [address] Calcium [Mass/Vol] 8.0 mg/dL Low 8.6-10.6 [facility] Comment on above: Performed By: #### 2 4321-2 ####AYDEE Bruce ([id number])[facility] ([facility])[address] [place] [address] Chloride [Moles/Vol] 93 mmol/L Low 98-107 [facility] Comment on above: Performed By: #### 2 4321-2 ####AYDEE Bruce (15349)[facility] ([facility])[address] [place] [address] CO2 [Moles/Vol] 28 mmol/L Normal 21-32 [facility] Comment on above: Performed By: #### 2 4321-2 ####AYDEE BAZZI L ([id number])[facility] ([facility])[address] [place] [address] Creatinine [Mass/Vol] 1.93 mg/dL High 0.50-1.05 [facility] Comment on above: Performed By: #### 2 4321-2 ####AYDEE BAZZI L ([id number])[facility] ([facility])[address] [place] [address] Glomerular filtration rate 28 mL/min/1.73m*2 Low >60 [facility] Comment on above: Result Comment: Calc ulations of estimated GFR are performed using the 2020 CKD-EPI Study Refit equation without the race variable for the IDMS-Traceable creatinine methods.https://jasn.asnjournals.org/content/early/ N.1121497369 Performed By: #### 2 4321-2 ####AYDEE Bruce ([id number])[facility] ([facility])[address] [place] [address] Glucose [Mass/Vol] 113 mg/dL High 74-99 [facility] Comment on above: Performed By: #### 2 4321-2 ####AYDEE BAZZI L ([id number])[facility] ([facility])[address] [place] [address] Potassium [Moles/Vol] 4.2 mmol/L Normal 3.5-5.3 [facility] Comment on above: Performed By: #### 2 4321-2 ####AYDEE BAZZI L ([id number])[facility] ([facility])[address] [place] [address] Sodium [Moles/Vol] 129 mmol/L Low 136-145 [facility] Comment on above: Performed By: #### 2 4321-2 ####AYDEE Bruce ([id number])[facility] ([facility])[address] [place] [address] Urea nitrogen [Mass/Vol] 43 mg/dL High 6-23 [facility] Comment on above: Performed By: #### 2 4321-2 ####AYDEE Bruce ([id number])[facility] ([facility])[address] [place] [address] CBC W Auto Differential pane l (d)on 10-13-2024 Erythrocyte distribution width (RBC) [Ratio] 17.5 % High 11.5-14.5 [facility] Comment on above: Order Comment: The [...] Performed By: #### 5 7021-8 ####AYDEE Bruce ([id number])[facility] ([facility])[address] [place] [address] Hematocrit (Bld) [Volume fraction] 27.2 % Low 36.0-46.0 [facility] Comment on above: Order Comment: The [...] Performed By: #### 5 7021-8 ####AYDEE Bruce ([id number])[facility] ([facility])[id number] [place] [address] Hemoglobin (Bld) [Mass/Vol] 8.0 g/dL Low 12.0-16.0 [facility] Comment on above: Order Comment: The [...] Performed By: #### 5 7021-8 ####AYDEE Bruce ([id number])[facility] ([facility])[address] [place] [address] Immature granulocytes (Bld) [#/Vol] 0.07 x10*3/uL Normal 0.00-0.70 [facility] Comment on above: Order Comment: The [...] Performed By: #### 5 7021-8 ####AYDEE Bruce ([id number])[facility] ([facility])[address] [place] [address] Immature granulocytes/100 WBC (Bld) 0.8 % Normal 0.0-0.9 [facility] Comment on above: Order Comment: The [...] Performed By: #### 5 7021-8 ####AYDEE Bruce ([id number])[facility] ([facility])[address] [place] [address] MCH (RBC) [Entitic mass] 30.1 pg Normal 26.0-34.0 [facility] Comment on above: Order Comment: The [...] Performed By: #### 5 7021-8 ####AYDEE Bruce ([id number])[facility] ([facility])[address] [place] [address] MCHC (RBC) [Mass/Vol] 29.4 g/dL Low 32.0-36.0 [facility] Comment on above: Order Comment: The [...] By: #### 5 7021-8 ####AYDEE VALDEZTZER L (68931)[facility] ([facility])[address] [place] [address] MCV (RBC) [Entitic vol] 102 fL High 80-100 [facility] Comment on above: Order Comment: The [...] By: #### 5 7021-8 ####AYDEE BAZZI L ([id number])[facility] ([facility])[address] [place] [address] Nucleated RBC/100 WBC (Bld) [Ratio] 0.0 /100 WBCs Normal 0.0-0.0 [facility] Comment on above: Order Comment: The [...] By: #### 5 7021-8 ####AYDEE CAMILOMOTZER L ([id number])[facility] ([facility])[address] [place] [address] Platelets (Bld) [#/Vol] 239 x10*3/uL Normal 150-450 [facility] Comment on above: Order Comment: The [...] By: #### 5 7021-8 ####AYDEE SCHMOTZER L ([id number])[facility] ([facility])[address] [place] [address] RBC (Bld) [#/Vol] 2.66 x10*6/uL Low 4.00-5.20 [facility] Comment on above: Order Comment: The p [...] By: #### 5 7021-8 ####AYDEE SCHMOTZER L ([id number])[facility] ([facility])[address] [place] [address] WBC (Bld) [#/Vol] 8.5 x10*3/uL Normal 4.4-11.3 [facility] Comment on above: Order Comment: [...] By: #### 5 7021-8 ####AYDEE VALDEZTZER L (60526)[facility] ([facility])[address] [place] [address] Glucose Test strip manual (B ld) [Mass/Vol]on 10-13-2024 Glucose [Mass/Vol] 113 mg/dL High [address] [place] [address] Comment on above: Performed By: #### 2 341-6 ####AYDEE SCHMOTZER L (02479)[facility] ([facility])[address] [place] [address] Glucose [Mass/Vol] 118 mg/dL High [address] [place] [address] Comment on above: Performed By: #### 2 341-6 ####AYDEE SCHMOTZER L ([id number])[facility] ([facility])[address] [place] [address] Glucose [Mass/Vol] 120 mg/dL High [address] [place] [address] Comment on above: Performed By: #### 2 341-6 ####AYDEE SCHMOTZER L ([id number])[facility] ([facility])[address] [place] [address] Glucose [Mass/Vol] 109 mg/dL High [address] [place] [address] Comment on above: Performed By: #### 2 341-6 ####AYDEE SCHMOTZER L ([id number])[facility] ([facility])[address] [place] [address] Glucose [Mass/Vol] 104 mg/dL High 74-99 [facility] Comment on above: Performed By: #### 2 341-6 ####AYDEE Bruce (49608)[facility] ([facility])[address] [place] [address] Heparin.unfractionatedon Heparin unfractionated Chromogenic method Qn (PPP) 0.3 IU/mL Normal See Comment Below for Therapeutic Ranges [facility] Comment on above: Order Comment: Obtai [...] please refer to local Pharmacy and the [facility] Guidelines for Anticoagulation Therapy available on the [facility] intranet at: [email or web address] Performed By: #### 3 274-8 ####AYDEE Bruce ([id number])[facility] ([facility])[address] [place] [address] Hepatic function 2000 panelo n 10-13-2024 Albumin BCP dye [Mass/Vol] 2.7 g/dL Low 3.4-5.0 [facility] Comment on above: Performed By: #### 2 4325-3 ####AYDEE Bruce ([id number])[facility] ([facility])[address] [place] [address] ALP [Catalytic activity/Vol] 258 U/L High 33-136 [facility] Comment on above: Performed By: #### 2 4325-3 ####AYDEE Bruce (88782)[facility] ([facility])[address] [place] [address] ALT With P-5'-P [Catalytic activity/Vol] 29 U/L Normal 7-45 [facility] Comment on above: Result Comment: Susan ents treated with Sulfasalazine may generate falsely decreased results for ALT. Performed By: #### 2 4325-3 ####AYDEE Bruce ([id number])[facility] ([facility])[address] [place] [address] AST With P-5'-P [Catalytic activity/Vol] 29 U/L Normal 9-39 [facility] Comment on above: Performed By: #### 2 4325-3 ####AYDEE Bruce ([id number])[facility] ([facility])[address] [place] [address] Bilirubin [Mass/Vol] 1.7 mg/dL High 0.0-1.2 [facility] Comment on above: Performed By: #### 2 4325-3 ####AYDEE Bruce (86645)[facility] ([facility])[address] [place] [address] Bilirubin.direct [Mass/Vol] 0.5 mg/dL High 0.0-0.3 [facility] Comment on above: Performed By: #### 2 4325-3 ####AYDEE Bruce ([id number])[facility] ([facility])[address] [place] [address] Protein [Mass/Vol] 5.0 g/dL Low 6.4-8.2 [facility] Comment on above: Performed By: #### 2 4325-3 ####AYDEE Bruce ([id number])[facility] ([facility])[address] [place] [address] Magnesiumon 10-13-2024 Magnesium [Mass/Vol] 1.99 mg/dL Normal 1.60-2.40 [facility] Comment on above: Performed By: #### 1 9123-9 ####AYDEE Bruce ([id number])[facility] ([facility])[address] [place] [address] Manual differential performe d Ql (Bld)on 10-13-2024 Band form neutrophils (Bld) [#/Vol] 0.00 x10*3/uL Normal 0.00-0.70 [facility] Comment on above: Performed By: #### 5 0957-0 ####AYDEE Bruce (67861)[facility] ([facility])[address] [place] [address] Band form neutrophils/100 WBC (Bld) 0.0 % Normal 0.0-5.0 [facility] Comment on above: Performed By: #### 5 57-0 ####AYDEE Bruce ([id number])[facility] ([facility])[address] [place] [address] Basophils (Bld) [#/Vol] 0.22 x10*3/uL High 0.00-0.10 [facility] Comment on above: Performed By: #### 5 57-0 ####AYDEE Bruce ([id number])[facility] ([facility])[address] [place] [address] Basophils/100 WBC (Bld) 2.6 % Normal 0.0-2.0 [facility] Comment on above: Performed By: #### 5 57-0 ####AYDEE Bruce ([id number])[facility] ([facility])[address] [place] [address] Blasts Manual cnt (Bld) [#/Vol] 0.00 x10*3/uL Normal 0.00-0.00 [facility] Comment on above: Performed By: #### 5 57-0 ####AYDEE Bruce ([id number])[facility] ([facility])[address] [place] [address] Blasts/100 WBC (Bld) 0.0 % Normal 0.0-0.0 [facility] Comment on above: Performed By: #### 5 57-0 ####AYDEE Bruce ([id number])[facility] ([facility])[address] [place] [address] Cells Counted Total (Bld) [#] 115 Normal [facility] Comment on above: Performed By: #### 5 57-0 ####AYDEE Bruce ([id number])[facility] ([facility])[address] [place] [address] Eosinophils (Bld) [#/Vol] 0.00 x10*3/uL Normal 0.00-0.70 [facility] Comment on above: Performed By: #### 5 57-0 ####AYDEE BAZZI L ([id number])[facility] ([facility])[address] [place] [address] Eosinophils/100 WBC (Bld) 0.0 % Normal 0.0-6.0 [facility] Comment on above: Performed By: #### 5 57-0 ####AYDEE Bruce ([id number])[facility] ([facility])[address] [place] [address] Lymphocytes (Bld) [#/Vol] 0.52 x10*3/uL Low 1.20-4.80 [facility] Comment on above: Performed By: #### 5 57-0 ####AYDEE BAZZI L ([id number])[facility] ([facility])[address] [place] [address] Lymphocytes/100 WBC (Bld) 6.1 % Normal 13.0-44.0 [facility] Comment on above: Performed By: #### 5 57-0 ####AYDEE Bruce ([id number])[facility] ([facility])[address] [place] [address] Metamyelocytes (Bld) [#/Vol] 0.00 x10*3/uL Normal 0.00-0.00 [facility] Comment on above: Performed By: #### 5 57-0 ####AYDEE BAZZI L ([id number])[facility] ([facility])[address] [place] [address] Metamyelocytes/100 WBC (Bld) 0.0 % Normal 0.0-0.0 [facility] Comment on above: Performed By: #### 5 57-0 ####AYDEE Bruce ([id number])[facility] ([facility])[address] [place] [address] Monocytes (Bld) [#/Vol] 0.52 x10*3/uL Normal 0.10-1.00 [facility] Comment on above: Performed By: #### 5 0957-0 ####AYDEE Bruce ([id number])[facility] ([facility])[address] [place] [address] Monocytes/100 WBC (Bld) 6.1 % Normal 2.0-10.0 [facility] Comment on above: Performed By: #### 5 0957-0 ####AYDEE Bruce ([id number])[facility] ([facility])[address] [place] [address] Myelocytes (Bld) [#/Vol] 0.00 x10*3/uL Normal 0.00-0.00 [facility] Comment on above: Performed By: #### 5 57-0 ####AYDEE Bruce ([id number])[facility] ([facility])[address] [place] [address] Myelocytes/100 WBC (Bld) 0.0 % Normal 0.0-0.0 [facility] Comment on above: Performed By: #### 5 57-0 ####AYDEE Bruce ([id number])[facility] ([facility])[address] [place] [address] Neutrophils (Bld) [#/Vol] 7.17 x10*3/uL Normal 1.20-7.70 [facility] Comment on above: Performed By: #### 5 0957-0 ####AYDEE Bruce ([id number])[facility] ([facility])[address] [place] [address] Nucleated RBC/100 WBC (Bld) [Ratio] 0.0 % Normal 0.0-0.0 [facility] Comment on above: Performed By: #### 5 57-0 ####AYDEE Bruce ([id number])[facility] ([facility])[address] [place] [address] Plasma cells (Bld) [#/Vol] 0.00 x10*3/uL Normal 0.00-0.00 [facility] Comment on above: Performed By: #### 5 0957-0 ####AYDEE Bruce ([id number])[facility] ([facility])[address] [place] [address] Plasma cells/100 WBC Manual cnt (Bld) 0.0 % Normal 0.00-0.00 [facility] Comment on above: Performed By: #### 5 0957-0 ####AYDEE Bruce ([id number])[facility] ([facility])[address] [place] [address] Promyelocytes (Bld) [#/Vol] 0.00 x10*3/uL Normal 0.00-0.00 [facility] Comment on above: Performed By: #### 5 57-0 ####AYDEE Bruce ([id number])[facility] ([facility])[address] [place] [address] Promyelocytes/100 WBC (Bld) 0.0 % Normal 0.0-0.0 [facility] Comment on above: Performed By: #### 5 57-0 ####AYDEE Bruce ([id number])[facility] ([facility])[address] [facility] [place] [address] RBC morphology finding Nom (Bld) See Below Normal [facility] Comment on above: Performed By: #### 5 57-0 ####AYDEE Bruce ([id number])[facility] ([facility])[address] [place] [address] Segmented neutrophils (Bld) [#/Vol] 7.17 x10*3/uL High 1.20-7.00 [facility] Comment on above: Performed By: #### 5 57-0 ####AYDEE Bruce ([id number])[facility] ([facility])[address] [place] [address] Segmented neutrophils/100 WBC (Bld) 84.3 % Normal 40.0-80.0 [facility] Comment on above: Result Comment: Perc ent differential counts (%) should be interpreted in the context of the absolute cell counts (cells/uL). Performed By: #### 5 0957-0 ####AYDEE Bruce ([id number])[facility] ([facility])[address] [place] [address] Variant lymphocytes (Bld) [#/Vol] 0.08 x10*3/uL Normal 0.00-0.50 [facility] Comment on above: Performed By: #### 5 0957-0 ####AYDEE Bruce ([id number])[facility] ([facility])[address] [place] [address] Variant lymphocytes/100 WBC (Bld) 0.9 % Normal 0.0-2.0 [facility] Comment on above: Performed By: #### 5 0957-0 ####AYDEE Bruce ([id number])[facility] ([facility])[address] [place] [address] WBC other Manual cnt (Bld) [#/Vol] 0.00 x10*3/uL Normal [facility] Comment on above: Performed By: #### 5 0957-0 ####AYDEE Bruce ([id number])[facility] ([facility])[address] [place] [address] WBC other/100 WBC (Bld) 0.0 % Normal [facility] Comment on above: Performed By: #### 5 0957-0 ####AYDEE Bruce ([id number])[facility] ([facility])[address] [place] [address] Phosphateon 10-13-2024 Phosphate [Mass/Vol] 2.7 mg/dL Normal 2.5-4.9 [facility] Comment on above: Performed By: #### 2 777-1 ####AYDEE Bruce (50981)[facility] ([facility])[address] [place] [address] Basic metabolic 2000 panelon 10-12-2024 Anion gap [Moles/Vol] 11 mmol/L Normal 10-20 [facility] Comment on above: Performed By: #### 2 4321-2 ####AYDEE BAZZI L ([id number])[facility] ([facility])[address] [place] [address] Calcium [Mass/Vol] 7.8 mg/dL Low 8.6-10.6 [facility] Comment on above: Performed By: #### 2 4321-2 ####AYDEE CAMILOMOTZER L (93989)[facility] ([facility])[address] [place] [address] Chloride [Moles/Vol] 94 mmol/L Low 98-107 [facility] Comment on above: Performed By: #### 2 4321-2 ####AYDEE CAMILOMOTZER L ([id number])[facility] ([facility])[address] [place] [address] CO2 [Moles/Vol] 29 mmol/L Normal 21-32 [facility] Comment on above: Performed By: #### 2 4321-2 ####AYDEE CAMILOMOTZER L ([id number])[facility] ([facility])[address] [place] [address] Creatinine [Mass/Vol] 1.28 mg/dL High 0.50-1.05 [facility] Comment on above: Performed By: #### 2 4321-2 ####AYDEE CAMILOMOTZER L ([id number])[facility] ([facility])[address] [place] [address] Glomerular filtration rate 46 mL/min/1.73m*2 Low >60 [facility] Comment on above: Result Comment: Calc ulations of estimated GFR are performed using the 2020 CKD-EPI Study Refit equation without the race variable for the IDMS-Traceable creatinine methods.https://jasn.asnjournals.org/content/early/ N.6153917464 Performed By: #### 2 4321-2 ####AYDEE Bruce ([id number])[facility] ([facility])[address] [place] [address] Glucose [Mass/Vol] 118 mg/dL High 74-99 [facility] Comment on above: Performed By: #### 2 4321-2 ####AYDEE Bruce ([id number])[facility] ([facility])[address] [place] [address] Potassium [Moles/Vol] 4.3 mmol/L Normal 3.5-5.3 [facility] Comment on above: Performed By: #### 2 4321-2 ####AYDEE Bruce ([id number])[facility] ([facility])[address] [place] [address] Sodium [Moles/Vol] 130 mmol/L Low 136-145 [facility] Comment on above: Performed By: #### 2 4321-2 ####AYDEE Bruce ([id number])[facility] ([facility])[address] [place] [address] Urea nitrogen [Mass/Vol] 25 mg/dL High 6-23 [facility] Comment on above: Performed By: #### 2 4321-2 ####AYDEE Bruce ([id number])[facility] ([facility])[address] [place] [address] CBC W Auto Differential pane l (Bld)on 10-12-2024 Basophils (Bld) [#/Vol] 0.06 x10*3/uL Normal 0.00-0.10 [facility] Comment on above: Performed By: #### 5 7021-8 ####AYDEE Bruce ([id number])[facility] ([facility])[address] [place] [address] Basophils/100 WBC (Bld) 0.6 % Normal 0.0-2.0 [facility] Comment on above: Performed By: #### 5 7021-8 ####AYDEE Bruce ([id number])[facility] ([facility])[address] [place] [address] Eosinophils (Bld) [#/Vol] 1.28 x10*3/uL High 0.00-0.70 [facility] Comment on above: Performed By: #### 5 7021-8 ####AYDEE Bruce ([id number])[facility] ([facility])[address] [place] [address] Eosinophils/100 WBC (Bld) 13.6 % Normal 0.0-6.0 [facility] Comment on above: Performed By: #### 5 7021-8 ####AYDEE Bruce ([id number])[facility] ([facility])[address] [place] [address] Erythrocyte distribution width (RBC) [Ratio] 18.1 % High 11.5-14.5 [facility] Comment on above: Performed By: #### 5 7021-8 ####AYDEE Bruce ([id number])[facility] ([facility])[address] [place] [address] Hematocrit (Bld) [Volume fraction] 28.0 % Low 36.0-46.0 [facility] Comment on above: Performed By: #### 5 7021-8 ####AYDEE Bruce ([id number])[facility] ([facility])[address] [place] [address] Hemoglobin (Bld) [Mass/Vol] 8.3 g/dL Low 12.0-16.0 [facility] Comment on above: Performed By: #### 5 7021-8 ####AYDEE Bruce ([id number])[facility] ([facility])[address] [place] [address] Immature granulocytes (Bld) [#/Vol] 0.10 x10*3/uL Normal 0.00-0.70 [facility] Comment on above: Performed By: #### 5 7021-8 ####AYDEE Bruce ([id number])[facility] ([facility])[id number] [place] [address] Immature granulocytes/100 WBC (Bld) 1.1 % High 0.0-0.9 [facility] Comment on above: Result Comment: Doris ture Granulocyte Count (IG) includes promyelocytes, myelocytes and metamyelocytes but does not include bands. Percent differential counts (%) should be interpreted in the context of the absolute cell counts (cells/UL). Performed By: #### 5 7021-8 ####AYDEE Bruce ([id number])[facility] ([facility])[address] [place] [address] Lymphocytes (Bld) [#/Vol] 1.51 x10*3/uL Normal 1.20-4.80 [facility] Comment on above: Performed By: #### 5 7021-8 ####AYDEE Bruce ([id number])[facility] ([facility])[address] [place] [address] Lymphocytes/100 WBC (Bld) 16.1 % Normal 13.0-44.0 [facility] Comment on above: Performed By: #### 5 7021-8 ####AYDEE Bruce ([id number])[facility] ([facility])[address] [place] [address] MCH (RBC) [Entitic mass] 30.2 pg Normal 26.0-34.0 [facility] Comment on above: Performed By: #### 5 7021-8 ####AYDEE Bruce ([id number])[facility] ([facility])[address] [place] [address] MCHC (RBC) [Mass/Vol] 29.6 g/dL Low 32.0-36.0 [facility] Comment on above: Performed By: #### 5 7021-8 ####AYDEE Bruce ([id number])[facility] ([facility])[address] [place] [address] MCV (RBC) [Entitic vol] 102 fL High 80-100 [facility] Comment on above: Performed By: #### 5 7021-8 ####AYDEE Bruce ([id number])[facility] ([facility])[address] [place] [address] Monocytes (Bld) [#/Vol] 0.59 x10*3/uL Normal 0.10-1.00 [facility] Comment on above: Performed By: #### 5 7021-8 ####AYDEE Bruce ([id number])[facility] ([facility])[address] [place] [address] Monocytes/100 WBC (Bld) 6.3 % Normal 2.0-10.0 [facility] Comment on above: Performed By: #### 5 7021-8 ####AYDEE Bruce ([id number])[facility] ([facility])[address] [place] [address] Neutrophils (Bld) [#/Vol] 5.85 x10*3/uL Normal 1.20-7.70 [facility] Comment on above: Result Comment: Perc ent differential counts (%) should be interpreted in the context of the absolute cell counts (cells/uL). Performed By: #### 5 7021-8 ####AYDEE Bruce (49461)[facility] ([facility])[address] [place] [address] Neutrophils/100 WBC (Bld) 62.3 % Normal 40.0-80.0 [facility] Comment on above: Performed By: #### 5 7021-8 ####AYDEE Bruce ([id number])[facility] ([facility])[address] [place] [address] Nucleated RBC/100 WBC (Bld) [Ratio] 0.0 /100 WBCs Normal 0.0-0.0 [facility] Comment on above: Performed By: #### 5 7021-8 ####AYDEE Bruce (46476)[facility] ([facility])[address] [place] [address] Platelets (Bld) [#/Vol] 242 x10*3/uL Normal 150-450 [facility] Comment on above: Performed By: #### 5 7021-8 ####AYDEE Bruce ([id number])[facility] ([facility])[address] [place] [address] RBC (Bld) [#/Vol] 2.75 x10*6/uL Low 4.00-5.20 [facility] Comment on above: Performed By: #### 5 7021-8 ####AYDEE Bruce ([id number])[facility] ([facility])[address] [place] [address] WBC (Bld) [#/Vol] 9.4 x10*3/uL Normal 4.4-11.3 [facility] Comment on above: Performed By: #### 5 7021-8 ####AYDEE Bruce (47457)[facility] ([facility])[address] [place] [address] Glucose Test strip manual (B ld) [Mass/Vol]on 10-12-2024 Glucose [Mass/Vol] 122 mg/dL High [address] [place] [address] Comment on above: Performed By: #### 2 341-6 ####AYDEE Bruce ([id number])[facility] ([facility])[address] [place] [address] Glucose [Mass/Vol] 128 mg/dL High [address] [place] [address] Comment on above: Performed By: #### 2 341-6 ####AYDEE Bruce ([id number])[facility] ([facility])[address] [place] [address] Glucose [Mass/Vol] 116 mg/dL High [address] [place] [address] Comment on above: Performed By: #### 2 341-6 ####AYDEE Bruce ([id number])[facility] ([facility])[address] [place] [address] Glucose [Mass/Vol] 113 mg/dL High [address] [place] [address] Comment on above: Performed By: #### 2 341-6 ####AYDEE Bruce ([id number])[facility] ([facility])[address] [place] [address] Glucose [Mass/Vol] 105 mg/dL High 74-99 [facility] Comment on above: Performed By: #### 2 341-6 ####AYDEE Bruce ([id number])[facility] ([facility])[address] [place] [address] Heparin.unfractionatedon Heparin unfractionated Chromogenic method Qn (PPP) 0.3 IU/mL Normal See Comment Below for Therapeutic Ranges [facility] Comment on above: Order Comment: Obtai [...] please refer to local Pharmacy and the [facility] Guidelines for Anticoagulation Therapy available on the [facility] intranet at: [email or web address]/[email or web address]_[email or web address] Performed By: #### 3 274-8 ####AYDEE Bruce ([id number])[facility] ([facility])[address] [place] [address] Heparin unfractionated Chromogenic method Qn (PPP) 0.3 IU/mL Normal See Comment Below for Therapeutic Ranges [facility] Comment on above: Order Comment: Obtai [...] please refer to local Pharmacy and the [facility] Guidelines for Anticoagulation Therapy available on the [facility] intranet at: [email or web address]_[email or web address] Performed By: #### 3 274-8 ####AYDEE Bruce (85869)[facility] ([facility])[address] [place] [address] Heparin unfractionated Chromogenic method Qn (PPP) 0.2 IU/mL Normal See Comment Below for Therapeutic Ranges [facility] Comment on above: Order Comment: Obtai [...] please refer to local Pharmacy and the [facility] Guidelines for Anticoagulation Therapy available on the [facility] intranet at: [email or web address]_[email or web address].aspx Performed By: #### 3 274-8 ####AYDEE Bruce (68676)[facility] ([facility])[address] [place] [address] Hepatic function 2000 panelo n 10-12-2024 Albumin BCP dye [Mass/Vol] 2.7 g/dL Low 3.4-5.0 [facility] Comment on above: Performed By: #### 2 4325-3 ####AYDEE Bruce ([id number])[facility] ([facility])[address] [place] [address] ALP [Catalytic activity/Vol] 244 U/L High 33-136 [facility] Comment on above: Performed By: #### 2 4325-3 ####AYDEE Bruce ([id number])[facility] ([facility])[address] [place] [address] ALT With P-5'-P [Catalytic activity/Vol] 31 U/L Normal 7-45 [facility] Comment on above: Result Comment: Susan ents treated with Sulfasalazine may generate falsely decreased results for ALT. Performed By: #### 2 4325-3 ####AYDEE Bruce (86754)[facility] ([facility])[address] [facility] [place] [address] AST With P-5'-P [Catalytic activity/Vol] 36 U/L Normal 9-39 [facility] Comment on above: Performed By: #### 2 4325-3 ####AYDEE Bruce ([id number])[facility] ([facility])[address] [facility] [place] [address] Bilirubin [Mass/Vol] 2.2 mg/dL High 0.0-1.2 [facility] Comment on above: Performed By: #### 2 4325-3 ####AYDEE Bruce (43776)[facility] ([facility])[address] [place] [address] Bilirubin.direct [Mass/Vol] 0.7 mg/dL High 0.0-0.3 [facility] Comment on above: Performed By: #### 2 4325-3 ####AYDEE Bruce ([id number])[facility] ([facility])[address] [place] [address] Protein [Mass/Vol] 4.7 g/dL Low 6.4-8.2 [facility] Comment on above: Performed By: #### 2 4325-3 ####AYDEE Brcue ([id number])[facility] ([facility])[address] [place] [address] Magnesiumon 10-12-2024 Magnesium [Mass/Vol] 1.98 mg/dL Normal 1.60-2.40 [facility] Comment on above: Performed By: #### 1 9123-9 ####AYDEE Bruce ([id number])[facility] ([facility])[address] [place] [address] Phosphateon 10-12-2024 Phosphate [Mass/Vol] 1.8 mg/dL Low 2.5-4.9 [facility] Comment on above: Performed By: #### 2 777-1 ####AYDEE Bruce (17859)[facility] ([facility])[address] [place] [address] Basic metabolic 2000 panelon 10-11-2024 Anion gap [Moles/Vol] 8 mmol/L Low 10-20 [facility] Comment on above: Performed By: #### 2 4321-2 ####AYDEE ZHONGER L (52503)[facility] ([facility])[address] [place] [address] Calcium [Mass/Vol] 7.6 mg/dL Low 8.6-10.6 [facility] Comment on above: Performed By: #### 2 4321-2 ####AYDEE CAMILOMOTZER L (52770)[facility] ([facility])[address] [place] [address] Chloride [Moles/Vol] 97 mmol/L Low 98-107 [facility] Comment on above: Performed By: #### 2 4321-2 ####AYDEE SCHMOTZER L (22894)[facility] ([facility])[address] [place] [address] CO2 [Moles/Vol] 30 mmol/L Normal 21-32 [facility] Comment on above: Performed By: #### 2 4321-2 ####AYDEE CAMILOMOTZER L ([id number])[facility] ([facility])[address] [place] [address] Creatinine [Mass/Vol] 0.36 mg/dL Low 0.50-1.05 [facility] Comment on above: Performed By: #### 2 4321-2 ####AYDEE CAMILOMOTZER L ([id number])[facility] ([facility])[address] [place] [address] Glomerular filtration rate >90 Normal >60 [facility] Comment on above: Result Comment: Calc ulations of estimated GFR are performed using the 2020 CKD-EPI Study Refit equation without the race variable for the IDMS-Traceable creatinine methods.https://jasn.asnjournals.org/content/early/ N.4468881101 Performed By: #### 2 4321-2 ####AYDEE Bruce ([id number])[facility] ([facility])[address] [place] [address] Glucose [Mass/Vol] 115 mg/dL High 74-99 [facility] Comment on above: Performed By: #### 2 4321-2 ####AYDEE Bruce (61960)[facility] ([facility])[address] [place] [address] Potassium [Moles/Vol] 4.4 mmol/L Normal 3.5-5.3 [facility] Comment on above: Performed By: #### 2 4321-2 ####AYDEE Bruce ([id number])[facility] ([facility])[address] [place] [address] Sodium [Moles/Vol] 131 mmol/L Low 136-145 [facility] Comment on above: Performed By: #### 2 4321-2 ####AYDEE Bruce ([id number])[facility] ([facility])[address] [place] [address] Urea nitrogen [Mass/Vol] 7 mg/dL Normal 6-23 [facility] Comment on above: Performed By: #### 2 4321-2 ####AYDEE Bruce ([id number])[facility] ([facility])[address] [place] [address] Blood type and Indirect anti body screen panel (Bld)on 10-11-2024 ABO group Nom (Bld) B Normal [facility] Comment on above: Performed By: #### 3 4532-2 ####AYDEE Bruce ([id number])[facility] ([facility])[address] [place] [address] Blood group antibody screen Ql Negative [facility] Comment on above: Performed By: #### 3 4532-2 ####AYDEE Bruce ([id number])[facility] ([facility])[address] [place] [address] D Ag Ql (Bld) Positive Normal [facility] Comment on above: Performed By: #### 3 4532-2 ####AYDEE Bruce ([id number])[facility] ([facility])[id number] [place] [address] CBC W Auto Differential pane l (Bld)on 10-11-2024 Basophils (Bld) [#/Vol] 0.03 x10*3/uL Normal 0.00-0.10 [facility] Comment on above: Performed By: #### 5 7021-8 ####AYDEE Bruce ([id number])[facility] ([facility])[address] [place] [address] Basophils/100 WBC (Bld) 0.3 % Normal 0.0-2.0 [facility] Comment on above: Performed By: #### 5 7021-8 ####AYDEE Bruce ([id number])[facility] ([facility])[id number] [place] [address] Eosinophils (Bld) [#/Vol] 1.03 x10*3/uL High 0.00-0.70 [facility] Comment on above: Performed By: #### 5 7021-8 ####AYDEE Bruce ([id number])[facility] ([facility])[address] [place] [address]15 Eosinophils/100 WBC (Bld) 10.6 % Normal 0.0-6.0 [facility] Comment on above: Performed By: #### 5 7021-8 ####AYDEE Bruce ([id number])[facility] ([facility])[address] [place] [address]141 Erythrocyte distribution width (RBC) [Ratio] 18.2 % High 11.5-14.5 [facility] Comment on above: Performed By: #### 5 7021-8 ####AYDEE Bruce ([id number])[facility] ([facility])[address] [place] [address] Hematocrit (Bld) [Volume fraction] 21.4 % Low 36.0-46.0 [facility] Comment on above: Performed By: #### 5 7021-8 ####AYDEE Bruce ([id number])[facility] ([facility])[address] [place] [address] Hemoglobin (Bld) [Mass/Vol] 6.2 g/dL Critically low 12.0-16.0 [facility] Comment on above: Performed By: #### 5 7021-8 ####AYDEE Bruce ([id number])[facility] ([facility])[address] [place] [address] Immature granulocytes (Bld) [#/Vol] 0.10 x10*3/uL Normal 0.00-0.70 [facility] Comment on above: Performed By: #### 5 7021-8 ####AYDEE Bruce ([id number])[facility] ([facility])[address] [place] [address] Immature granulocytes/100 WBC (Bld) 1.0 % High 0.0-0.9 [facility] Comment on above: Result Comment: Doris ture Granulocyte Count (IG) includes promyelocytes, myelocytes and metamyelocytes but does not include bands. Percent differential counts (%) should be interpreted in the context of the absolute cell counts (cells/UL). Performed By: #### 5 7021-8 ####AYDEE Bruce ([id number])[facility] ([facility])[address] [place] [address] Lymphocytes (Bld) [#/Vol] 2.05 x10*3/uL Normal 1.20-4.80 [facility] Comment on above: Performed By: #### 5 7021-8 ####AYDEE Bruce ([id number])[facility] ([facility])[address] [place] [address] Lymphocytes/100 WBC (Bld) 21.0 % Normal 13.0-44.0 [facility] Comment on above: Performed By: #### 5 7021-8 ####AYDEE Bruce ([id number])[facility] ([facility])[address] [place] [address] MCH (RBC) [Entitic mass] 29.7 pg Normal 26.0-34.0 [facility] Comment on above: Performed By: #### 5 7021-8 ####AYDEE Bruce ([id number])[facility] ([facility])[address] [place] [address] MCHC (RBC) [Mass/Vol] 29.0 g/dL Low 32.0-36.0 [facility] Comment on above: Performed By: #### 5 7021-8 ####AYDEE Bruce ([id number])[facility] ([facility])[address] [place] [address] MCV (RBC) [Entitic vol] 102 fL High 80-100 [facility] Comment on above: Performed By: #### 5 7021-8 ####AYDEE Bruce ([id number])[facility] ([facility])[address] [place] [address] Monocytes (Bld) [#/Vol] 0.54 x10*3/uL Normal 0.10-1.00 [facility] Comment on above: Performed By: #### 5 7021-8 ####AYDEE Bruce ([id number])[facility] ([facility])[address] [place] [address] Monocytes/100 WBC (Bld) 5.5 % Normal 2.0-10.0 [facility] Comment on above: Performed By: #### 5 7021-8 ####AYDEE Bruce ([id number])[facility] ([facility])[address] [place] [address] Neutrophils (Bld) [#/Vol] 6.00 x10*3/uL Normal 1.20-7.70 [facility] Comment on above: Result Comment: Perc ent differential counts (%) should be interpreted in the context of the absolute cell counts (cells/uL). Performed By: #### 5 7021-8 ####AYDEE Bruce ([id number])[facility] ([facility])[address] [place] [address] Neutrophils/100 WBC (Bld) 61.6 % Normal 40.0-80.0 [facility] Comment on above: Performed By: #### 5 7021-8 ####AYDEE Bruce ([id number])[facility] ([facility])[address] [place] [address] Nucleated RBC/100 WBC (Bld) [Ratio] 0.0 /100 WBCs Normal 0.0-0.0 [facility] Comment on above: Performed By: #### 5 7021-8 ####AYDEE Bruce ([id number])[facility] ([facility])[address] [place] [address] Platelets (Bld) [#/Vol] 247 x10*3/uL Normal 150-450 [facility] Comment on above: Performed By: #### 5 7021-8 ####AYDEE Bruce ([id number])[facility] ([facility])[address] [place] [address] RBC (Bld) [#/Vol] 2.09 x10*6/uL Low 4.00-5.20 [facility] Comment on above: Performed By: #### 5 7021-8 ####AYDEE Bruce ([id number])[facility] ([facility])[address] [place] [address] WBC (Bld) [#/Vol] 9.8 x10*3/uL Normal 4.4-11.3 [facility] Comment on above: Performed By: #### 5 7021-8 ####AYDEE Bruce ([id number])[facility] ([facility])[address] [place] [address] CBC panel Auto (Bld)on 10-11 Erythrocyte distribution width (RBC) [Ratio] 17.4 % High 11.5-14.5 [facility] Comment on above: Performed By: #### 5 8410-2 ####AYDEE Bruce ([id number])[facility] ([facility])[address] [place] [address] Hematocrit (Bld) [Volume fraction] 26.7 % Low 36.0-46.0 [facility] Comment on above: Performed By: #### 5 8410-2 ####AYDEE Bruce (49291)[facility] ([facility])[address] [place] [address] Hemoglobin (Bld) [Mass/Vol] 8.2 g/dL Low 12.0-16.0 [facility] Comment on above: Performed By: #### 5 8410-2 ####AYDEE Bruce ([id number])[facility] ([facility])[address] [place] [address] MCH (RBC) [Entitic mass] 30.1 pg Normal 26.0-34.0 [facility] Comment on above: Performed By: #### 5 8410-2 ####AYDEE Bruce ([id number])[facility] ([facility])[address] [place] [address] MCHC (RBC) [Mass/Vol] 30.7 g/dL Low 32.0-36.0 [facility] Comment on above: Performed By: #### 5 8410-2 ####AYDEE Bruce ([id number])[facility] ([facility])[address] [place] [address] MCV (RBC) [Entitic vol] 98 fL Normal 80-100 [facility] Comment on above: Performed By: #### 5 8410-2 ####AYDEE Bruce (59371)[facility] ([facility])[address] [place] [address] Nucleated RBC/100 WBC (Bld) [Ratio] 0.0 /100 WBCs Normal 0.0-0.0 [facility] Comment on above: Performed By: #### 5 8410-2 ####AYDEE Bruce (27611)[facility] ([facility])[address] [place] [address]652 Platelets (Bld) [#/Vol] 245 x10*3/uL Normal 150-450 [facility] Comment on above: Performed By: #### 5 8410-2 ####AYDEE Bruce ([id number])[facility] ([facility])[address] [place] [address] RBC (Bld) [#/Vol] 2.72 x10*6/uL Low 4.00-5.20 [facility] Comment on above: Performed By: #### 5 8410-2 ####AYDEE Bruce ([id number])[facility] ([facility])[address] [place] [address] 13294 WBC (Bld) [#/Vol] 9.3 x10*3/uL Normal 4.4-11.3 [facility] Comment on above: Performed By: #### 5 8410-2 ####AYDEE Bruce ([id number])[facility] ([facility])[address] [place] [address] Ferritinon 10-11-2024 Ferritin [Mass/Vol] 872 ng/mL High 8-150 [facility] Comment on above: Performed By: #### 2 276-4 ####AYDEE Bruce ([id number])[facility] ([facility])[address] [place] [address]16[address] Glucose Test strip manual (B ld) [Mass/Vol]on 10-11-2024 Glucose [Mass/Vol] 109 mg/dL High 74-99 [facility] Comment on above: Performed By: #### 2 341-6 ####AYDEE Bruce ([id number])[facility] ([facility])[address] [place] [address] Glucose [Mass/Vol] 104 mg/dL High 74-99 [facility] Comment on above: Performed By: #### 2 341-6 ####AYDEE Bruce (69482)[facility] ([facility])[address] [place] [address]92 Glucose [Mass/Vol] 124 mg/dL High 74-99 [facility] Comment on above: Performed By: #### 2 341-6 ####AYDEE Bruce ([id number])[facility] ([facility])[address] [facility] [place] [address] Glucose [Mass/Vol] 128 mg/dL High 74-99 [facility] Comment on above: Performed By: #### 2 341-6 ####AYDEE Bruce ([id number])[facility] ([facility])[address] [facility] [place] [address] Glucose [Mass/Vol] 109 mg/dL High 74-99 [facility] Comment on above: Performed By: #### 2 341-6 ####AYDEE Bruce ([id number])[facility] ([facility])[address] [place] [address] Haptoglobinon 10-11-2024 Haptoglobin Nephelometry [Mass/Vol] 329 mg/dL High 30-200 [facility] Comment on above: Performed By: #### 4 6127-7 ####AYDEE Bruce ([id number])[facility] ([facility])[address] [place] [address] Heparin.unfractionatedon Heparin unfractionated Chromogenic method Qn (PPP) 0.2 IU/mL Normal See Comment Below for Therapeutic Ranges [facility] Comment on above: Order Comment: Obtai [...] please refer to local Pharmacy and the [facility] Guidelines for Anticoagulation Therapy available on the [facility] intranet at: [email or web address] Performed By: #### 3 274-8 ####AYDEE Bruce ([id number])[facility] ([facility])[address] [place] [address] Hepatic function 2000 panelo n 10-11-2024 Albumin BCP dye [Mass/Vol] 2.5 g/dL Low 3.4-5.0 [facility] Comment on above: Performed By: #### 2 4325-3 ####AYDEE Bruce ([id number])[facility] ([facility])[address] [place] [address] ALP [Catalytic activity/Vol] 217 U/L High 33-136 [facility] Comment on above: Performed By: #### 2 4325-3 ####AYEDE Bruce ([id number])[facility] ([facility])[address] [place] [address] ALT With P-5'-P [Catalytic activity/Vol] 30 U/L Normal 7-45 [facility] Comment on above: Result Comment: Susan ents treated with Sulfasalazine may generate falsely decreased results for ALT. Performed By: #### 2 4325-3 ####AYDEE Bruce ([id number])[facility] ([facility])[address] [place] [address] AST With P-5'-P [Catalytic activity/Vol] 45 U/L High 9-39 [facility] Comment on above: Performed By: #### 2 4325-3 ####AYDEE Bruce ([id number])[facility] ([facility])[address] [place] [address] Bilirubin [Mass/Vol] 1.8 mg/dL High 0.0-1.2 [facility] Comment on above: Performed By: #### 2 4325-3 ####AYDEE BAZZI L ([id number])[facility] ([facility])[address] [place] [address] Bilirubin.direct [Mass/Vol] 0.6 mg/dL High 0.0-0.3 [facility] Comment on above: Performed By: #### 2 4325-3 ####AYDEE Bruce ([id number])[facility] ([facility])[address] [place] [address] Protein [Mass/Vol] 4.5 g/dL Low 6.4-8.2 [facility] Comment on above: Performed By: #### 2 4325-3 ####AYDEE Bruce (47813)[facility] ([facility])[address] [place] [address]605 Iron and Iron binding capaci ty panelon 10-11-2024 Iron [Mass/Vol] 37 ug/dL Normal 35-150 [facility] Comment on above: Performed By: #### 5 0190-8 ####AYDEE Bruce ([id number])[facility] ([facility])[address] [place] [address] 45410 Iron binding capacity [Mass/Vol] 232 ug/dL Low 240-445 [facility] Comment on above: Performed By: #### 5 0190-8 ####AYDEE Bruce ([id number])[facility] ([facility])[address] [place] [address] 12817 Iron binding capacity.unsaturated [Mass/Vol] 195 ug/dL Normal 110-370 [facility] Comment on above: Performed By: #### 5 0190-8 ####AYDEE Bruce (20539)[facility] ([facility])[address] [place] [address] 99748 Iron saturation [Mass fraction] 16 % Low 25-45 [facility] Comment on above: Performed By: #### 5 0190-8 ####AYDEE Bruce (48343)[facility] ([facility])[address] [place] [address] 40336 Lactate dehydrogenaseon LDH Lactate to pyruvate reaction [Catalytic activity/Vol] 313 U/L High 84-246 [facility] Comment on above: Performed By: #### 1 4804-9 ####AYDEE Bruce (59143)[facility] ([facility])[address] [place] [address] Magnesiumon 10-11-2024 Magnesium [Mass/Vol] 1.81 mg/dL Normal 1.60-2.40 [facility] Comment on above: Performed By: #### 1 9123-9 ####AYDEE Bruce ([id number])[facility] ([facility])[address] [place] [address] comment (Bld) [Interp]on 10-11-2024 PATH REVIEW-CBC DIFFERENTIAL Macrocytic hypochromic anemia with anisocytosis, polychromasia, and few nRBCs. No schistocytes identified. Adequate leukocytes with mild eosinophilia and mild granulocytic left shift. Adequate platelets with few giant forms and no clumping seen. Normal [facility] Comment on above: Result Comment: Elec tronically signed out by Du Costa MD on 10/12/24 at 1:42 PM.By the signature on this report, the individual or group listed as making the Final Interpretation/Diagnosis certifies that they have reviewed this case. Performed By: #### 1 4869-2 ####AYDEE Bruce ([id number])[facility] ([facility])[address] [place] [address] Phosphateon 10-11-2024 Phosphate [Mass/Vol] 1.2 mg/dL Low 2.5-4.9 [facility] Comment on above: Performed By: #### 2 777-1 ####AYDEE Bruce ([id number])[facility] ([facility])[address] [place] [address] 15080 RBC shape Nom (Bld)on 2024 RBC morphology finding Nom (Bld) No significant RBC morphology present Normal [facility] Comment on above: Performed By: #### 1 8225-3 ####AYDEE Bruce (55327)[facility] ([facility])[address] [place] [address] XR CHEST 1 VIEWon 10-11-2024 XR CHEST 1 VIEW Normal [facility] Basic metabolic 2000 panelon 10-10-2024 Anion gap [Moles/Vol] 10 mmol/L Normal 10-20 [facility] Comment on above: Performed By: #### 2 4321-2 ####AYDEE BAZZI L (59305)[facility] ([facility])[address] [place] [address] Calcium [Mass/Vol] 7.5 mg/dL Low 8.6-10.6 [facility] Comment on above: Performed By: #### 2 4321-2 ####AYDEE CAMILOMOTZER L ([id number])[facility] ([facility])[address] [place] [address] Chloride [Moles/Vol] 97 mmol/L Low 98-107 [facility] Comment on above: Performed By: #### 2 4321-2 ####AYDEE BAZZI L ([id number])[facility] ([facility])[address] [place] [address] CO2 [Moles/Vol] 29 mmol/L Normal 21-32 [facility] Comment on above: Performed By: #### 2 4321-2 ####AYDEE BAZZI L ([id number])[facility] ([facility])[address] [place] [address] Creatinine [Mass/Vol] 0.37 mg/dL Low 0.50-1.05 [facility] Comment on above: Performed By: #### 2 4321-2 ####AYDEE VALDEZTZER L (06287)[facility] ([facility])[address] [place] [address] Glomerular filtration rate >90 Normal >60 [facility] Comment on above: Result Comment: Calc ulations of estimated GFR are performed using the 2020 CKD-EPI Study Refit equation without the race variable for the IDMS-Traceable creatinine methods.https://jasn.asnjournals.org/content/early/ N.4336658442 Performed By: #### 2 4321-2 ####AYDEE BAZZI L ([id number])[facility] ([facility])[address] [place] [address] Glucose [Mass/Vol] 118 mg/dL High 74-99 [facility] Comment on above: Performed By: #### 2 4321-2 ####AYDEE Bruce ([id number])[facility] ([facility])[address] [place] [address] Potassium [Moles/Vol] 3.1 mmol/L Low 3.5-5.3 [facility] Comment on above: Performed By: #### 2 4321-2 ####AYDEE Bruce ([id number])[facility] ([facility])[address] [place] [address] Sodium [Moles/Vol] 133 mmol/L Low 136-145 [facility] Comment on above: Performed By: #### 2 4321-2 ####AYDEE Bruce ([id number])[facility] ([facility])[address] [place] [address] Urea nitrogen [Mass/Vol] 5 mg/dL Low 6-23 [facility] Comment on above: Performed By: #### 2 4321-2 ####AYDEE Bruce ([id number])[facility] ([facility])[address] [place] [address] 45685 CBC W Auto Differential pane l (Bld)on 10-10-2024 Basophils (Bld) [#/Vol] 0.02 x10*3/uL Normal 0.00-0.10 [facility] Comment on above: Performed By: #### 5 7021-8 ####AYDEE Bruce (22509)[facility] ([facility])[address] [place] [address] Basophils/100 WBC (Bld) 0.2 % Normal 0.0-2.0 [facility] Comment on above: Performed By: #### 5 7021-8 ####AYDEE Bruce (69681)[facility] ([facility])[address] [place] [address] Eosinophils (Bld) [#/Vol] 0.71 x10*3/uL High 0.00-0.70 [facility] Comment on above: Performed By: #### 5 7021-8 ####AYDEE Bruce ([id number])[facility] ([facility])[address] [place] [address] Eosinophils/100 WBC (Bld) 8.5 % Normal 0.0-6.0 [facility] Comment on above: Performed By: #### 5 7021-8 ####AYDEE Bruce ([id number])[facility] ([facility])[address] [place] [address] 85069 Erythrocyte distribution width (RBC) [Ratio] 18.1 % High 11.5-14.5 [facility] Comment on above: Performed By: #### 5 7021-8 ####AYDEE Bruce ([id number])[facility] ([facility])[address] [place] [address] 17625 Hematocrit (Bld) [Volume fraction] 22.5 % Low 36.0-46.0 [facility] Comment on above: Performed By: #### 5 7021-8 ####AYDEE Bruce ([id number])[facility] ([facility])[address] [place] [address] 28451 Hemoglobin (Bld) [Mass/Vol] 7.1 g/dL Low 12.0-16.0 [facility] Comment on above: Performed By: #### 5 7021-8 ####AYDEE Bruce ([id number])[facility] ([facility])[address] [place] [address] 65[address] Immature granulocytes (Bld) [#/Vol] 0.05 x10*3/uL Normal 0.00-0.70 [facility] Comment on above: Performed By: #### 5 7021-8 ####AYDEE Bruce ([id number])[facility] ([facility])[address] [place] [address] Immature granulocytes/100 WBC (Bld) 0.6 % Normal 0.0-0.9 [facility] Comment on above: Result Comment: Doris ture Granulocyte Count (IG) includes promyelocytes, myelocytes and metamyelocytes but does not include bands. Percent differential counts (%) should be interpreted in the context of the absolute cell counts (cells/UL). Performed By: #### 5 7021-8 ####AYDEE Bruce ([id number])[facility] ([facility])[address] [place] [address] Lymphocytes (Bld) [#/Vol] 1.43 x10*3/uL Normal 1.20-4.80 [facility] Comment on above: Performed By: #### 5 7021-8 ####AYDEE Bruce ([id number])[facility] ([facility])[address] [place] [address] Lymphocytes/100 WBC (Bld) 17.1 % Normal 13.0-44.0 [facility] Comment on above: Performed By: #### 5 7021-8 ####AYDEE Bruce ([id number])[facility] ([facility])[address] [place] [address] MCH (RBC) [Entitic mass] 30.1 pg Normal 26.0-34.0 [facility] Comment on above: Performed By: #### 5 7021-8 ####AYDEE Bruce ([id number])[facility] ([facility])[address] [place] [address] MCHC (RBC) [Mass/Vol] 31.6 g/dL Low 32.0-36.0 [facility] Comment on above: Performed By: #### 5 7021-8 ####AYDEE BAZZI L ([id number])[facility] ([facility])[address] [place] [address] MCV (RBC) [Entitic vol] 95 fL Normal 80-100 [facility] Comment on above: Performed By: #### 5 7021-8 ####AYDEE Bruce ([id number])[facility] ([facility])[address] [place] [address] Monocytes (Bld) [#/Vol] 0.43 x10*3/uL Normal 0.10-1.00 [facility] Comment on above: Performed By: #### 5 7021-8 ####AYDEE Bruce ([id number])[facility] ([facility])[address] [place] [address] Monocytes/100 WBC (Bld) 5.1 % Normal 2.0-10.0 [facility] Comment on above: Performed By: #### 5 7021-8 ####AYDEE Bruce ([id number])[facility] ([facility])[address] [place] [address] Neutrophils (Bld) [#/Vol] 5.71 x10*3/uL Normal 1.20-7.70 [facility] Comment on above: Result Comment: Perc ent differential counts (%) should be interpreted in the context of the absolute cell counts (cells/uL). Performed By: #### 5 7021-8 ####AYDEE Bruce ([id number])[facility] ([facility])[address] [place] [address] Neutrophils/100 WBC (Bld) 68.5 % Normal 40.0-80.0 [facility] Comment on above: Performed By: #### 5 7021-8 ####AYDEE Bruce ([id number])[facility] ([facility])[address] [place] [address] Nucleated RBC/100 WBC (Bld) [Ratio] 0.0 /100 WBCs Normal 0.0-0.0 [facility] Comment on above: Performed By: #### 5 7021-8 ####AYDEE BAZZI L ([id number])[facility] ([facility])[address] [place] [address] Platelets (Bld) [#/Vol] 201 x10*3/uL Normal 150-450 [facility] Comment on above: Performed By: #### 5 7021-8 ####AYDEE BAZZI L ([id number])[facility] ([facility])[address] [place] [address] RBC (Bld) [#/Vol] 2.36 x10*6/uL Low 4.00-5.20 [facility] Comment on above: Performed By: #### 5 7021-8 ####AYDEE Bruce ([id number])[facility] ([facility])[address] [place] [address] WBC (Bld) [#/Vol] 8.4 x10*3/uL Normal 4.4-11.3 [facility] Comment on above: Performed By: #### 5 7021-8 ####AYDEE Bruce ([id number])[facility] ([facility])[address] [place] [address] Glucose Test strip manual (B ld) [Mass/Vol]on 10-10-2024 Glucose [Mass/Vol] 103 mg/dL High [address] [place] [address] Comment on above: Performed By: #### 2 341-6 ####AYDEE Bruce ([id number])[facility] ([facility])[address] [place] [address] Glucose [Mass/Vol] 111 mg/dL High [address] [place] [address] Comment on above: Performed By: #### 2 341-6 ####AYDEE Bruce ([id number])[facility] ([facility])[address] [place] [address] Glucose [Mass/Vol] 124 mg/dL High [address] [place] [address] Comment on above: Performed By: #### 2 341-6 ####AYDEE Bruce ([id number])[facility] ([facility])[address] [place] [address] Glucose [Mass/Vol] 115 mg/dL High [address] [place] [address] Comment on above: Performed By: #### 2 341-6 ####AYDEE Bruce ([id number])[facility] ([facility])[address] [place] [address] Glucose [Mass/Vol] 120 mg/dL High 74-99 [facility] Comment on above: Performed By: #### 2 341-6 ####AYDEE Bruce ([id number])[facility] ([facility])[address] [place] [address] Glucose [Mass/Vol] 89 mg/dL Normal 74-99 [facility] Comment on above: Performed By: #### 2 341-6 ####AYDEE Bruce ([id number])[facility] ([facility])[address] [place] [address] Heparin.unfractionatedon Heparin unfractionated Chromogenic method Qn (PPP) 0.3 IU/mL Normal See Comment Below for Therapeutic Ranges [facility] Comment on above: Order Comment: Obtai [...] please refer to local Pharmacy and the [facility] Guidelines for Anticoagulation Therapy available on the [facility] intranet at: [email or web address] Performed By: #### 3 274-8 ####AYDEE Bruce ([id number])[facility] ([facility])[address] [place] [address] Hepatic function 2000 panelo n 10-10-2024 Albumin BCP dye [Mass/Vol] 2.4 g/dL Low 3.4-5.0 [facility] Comment on above: Performed By: #### 2 4325-3 ####AYDEE Bruce ([id number])[facility] ([facility])[address] [place] [address] ALP [Catalytic activity/Vol] 209 U/L High 33-136 [facility] Comment on above: Performed By: #### 2 4325-3 ####AYDEE Bruce ([id number])[facility] ([facility])[address] [place] [address] ALT With P-5'-P [Catalytic activity/Vol] 28 U/L Normal 7-45 [facility] Comment on above: Result Comment: Susan ents treated with Sulfasalazine may generate falsely decreased results for ALT. Performed By: #### 2 4325-3 ####AYDEE Bruce ([id number])[facility] ([facility])[address] [place] [address] AST With P-5'-P [Catalytic activity/Vol] 52 U/L High 9-39 [facility] Comment on above: Performed By: #### 2 4325-3 ####AYDEE Bruce ([id number])[facility] ([facility])[address] [place] [address] Bilirubin [Mass/Vol] 2.1 mg/dL High 0.0-1.2 [facility] Comment on above: Performed By: #### 2 4325-3 ####AYDEE Bruce ([id number])[facility] ([facility])[address] [place] [address] Bilirubin.direct [Mass/Vol] 0.7 mg/dL High 0.0-0.3 [facility] Comment on above: Performed By: #### 2 4325-3 ####AYDEE Bruce ([id number])[facility] ([facility])[address] [place] [address] Protein [Mass/Vol] 4.3 g/dL Low 6.4-8.2 [facility] Comment on above: Performed By: #### 2 4325-3 ####AYDEE Bruce ([id number])[facility] ([facility])[address] [place] [address] Magnesiumon 10-10-2024 Magnesium [Mass/Vol] 2.33 mg/dL Normal 1.60-2.40 [facility] Comment on above: Performed By: #### 1 9123-9 ####AYDEE Bruce ([id number])[facility] ([facility])[address] [place] [address] Magnesium [Mass/Vol] 1.71 mg/dL Normal 1.60-2.40 [facility] Comment on above: Performed By: #### 1 9123-9 ####AYDEE Bruce ([id number])[facility] ([facility])[address] [place] [address] Phosphateon 10-10-2024 Phosphate [Mass/Vol] 1.0 mg/dL Low 2.5-4.9 [facility] Comment on above: Performed By: #### 2 777-1 ####AYDEE Bruce ([id number])[facility] ([facility])[address] [place] [address] Renal function 2000 panelon 10-10-2024 Albumin BCP dye [Mass/Vol] 2.5 g/dL Low 3.4-5.0 [facility] Comment on above: Performed By: #### 2 4362-6 ####AYDEE Bruce (54452)[facility] ([facility])[address] [place] [address] Anion gap [Moles/Vol] 11 mmol/L Normal 10-20 [facility] Comment on above: Performed By: #### 2 4362-6 ####AYDEE Bruce ([id number])[facility] ([facility])[address] [place] [address] Calcium [Mass/Vol] 7.7 mg/dL Low 8.6-10.6 [facility] Comment on above: Performed By: #### 2 4362-6 ####AYDEE Bruce ([id number])[facility] ([facility])[address] [place] [address] Chloride [Moles/Vol] 98 mmol/L Normal 98-107 [facility] Comment on above: Performed By: #### 2 4362-6 ####AYDEE Bruce ([id number])[facility] ([facility])[address] [place] [address] CO2 [Moles/Vol] 28 mmol/L Normal 21-32 [facility] Comment on above: Performed By: #### 2 4362-6 ####AYDEE Bruce ([id number])[facility] ([facility])[address] [facility] [place] [address] Creatinine [Mass/Vol] 0.88 mg/dL Normal 0.50-1.05 [facility] Comment on above: Performed By: #### 2 4362-6 ####AYDEE Bruce ([id number])[facility] ([facility])[address] [place] [address] Glomerular filtration rate 72 mL/min/1.73m*2 Normal >60 [facility] Comment on above: Result Comment: Calc ulations of estimated GFR are performed using the 2020 CKD-EPI Study Refit equation without the race variable for the IDMS-Traceable creatinine methods.https://jasn.asnjournals.org/content/early// N.0029032764 Performed By: #### 2 4362-6 ####AYDEE Bruce ([id number])[facility] ([facility])[address] [place] [address] Glucose [Mass/Vol] 131 mg/dL High 74-99 [facility] Comment on above: Performed By: #### 2 4362-6 ####AYDEE Bruce (94600)[facility] ([facility])[address] [place] [address] Phosphate [Mass/Vol] 2.6 mg/dL Normal 2.5-4.9 [facility] Comment on above: Performed By: #### 2 4362-6 ####AYDEE BAZZI L ([id number])[facility] ([facility])[address] [facility] [place] [address] Potassium [Moles/Vol] 4.8 mmol/L Normal 3.5-5.3 [facility] Comment on above: Performed By: #### 2 4362-6 ####AYDEE Bruce ([id number])[facility] ([facility])[address] [place] [address] Sodium [Moles/Vol] 132 mmol/L Low 136-145 [facility] Comment on above: Performed By: #### 2 4362-6 ####AYDEE Bruce (49734)[facility] ([facility])[address] [place] [address] Urea nitrogen [Mass/Vol] 13 mg/dL Normal 6-23 [facility] Comment on above: Performed By: #### 2 4362-6 ####AYDEE Bruce ([id number])[facility] ([facility])[address] [place] [address] Bacteriaon 10-09-2024 Bacteria identified Respiratory culture Nom (Unsp spec) [facility] Comment on above: Performed By: #### 3 2355-0 ####AYDEE Bruce (90354)[facility] ([facility])[address] [place] [address] Bacteria identified Cx Nom (Bld) [facility] Comment on above: Performed By: #### 6 00-7 ####AYDEE Bruce (85290)[facility] ([facility])[address] [place] [address] Basic metabolic 2000 panelon 10-09-2024 Anion gap [Moles/Vol] 11 mmol/L Normal 10-20 [facility] Comment on above: Performed By: #### 2 4321-2 ####AYDEE Bruce (92042)[facility] ([facility])[address] [place] [address] Calcium [Mass/Vol] 7.9 mg/dL Low 8.6-10.6 [facility] Comment on above: Performed By: #### 2 4321-2 ####AYDEE Bruce ([id number])[facility] ([facility])[address] [place] [address] Chloride [Moles/Vol] 100 mmol/L Normal 98-107 [facility] Comment on above: Performed By: #### 2 4321-2 ####AYDEE Bruce ([id number])[facility] ([facility])[address] [place] [address] CO2 [Moles/Vol] 29 mmol/L Normal 21-32 [facility] Comment on above: Performed By: #### 2 4321-2 ####AYDEE Bruce (36908)[facility] ([facility])[address] [place] [address] Creatinine [Mass/Vol] 0.76 mg/dL Normal 0.50-1.05 [facility] Comment on above: Performed By: #### 2 4320-2 ####AYDEE Bruce (32761)[facility] ([facility])[address] [place] [address] Glomerular filtration rate 85 mL/min/1.73m*2 Normal >60 [facility] Comment on above: Result Comment: Calc ulations of estimated GFR are performed using the 2020 CKD-EPI Study Refit equation without the race variable for the IDMS-Traceable creatinine methods.https://jasn.asnjournals.org/content/early/ N.3765760053 Performed By: #### 2 4321-2 ####AYDEE Bruce (65759)[facility] ([facility])[address] [place] [address] Glucose [Mass/Vol] 150 mg/dL High 74-99 [facility] Comment on above: Performed By: #### 2 1-2 ####AYDEE Bruce (87251)[facility] ([facility])[address] [place] [address] Potassium [Moles/Vol] 3.7 mmol/L Normal 3.5-5.3 [facility] Comment on above: Performed By: #### 2 1-2 ####AYDEE Bruce (70950)[facility] ([facility])[address] [place] [address] Sodium [Moles/Vol] 136 mmol/L Normal 136-145 [facility] Comment on above: Performed By: #### 2 4321-2 ####AYDEE Bruce ([id number])[facility] ([facility])[address] [place] [address] Urea nitrogen [Mass/Vol] 11 mg/dL Normal 6-23 [facility] Comment on above: Performed By: #### 2 4321-2 ####AYDEE Bruce (39740)[facility] ([facility])[address] [place] [address] CBC W Auto Differential pane l (Bld)on 10-09-2024 Basophils (Bld) [#/Vol] 0.03 x10*3/uL Normal 0.00-0.10 [facility] Comment on above: Performed By: #### 5 7021-8 ####AYDEE Bruce (55558)[facility] ([facility])[address] [place] [address] Basophils/100 WBC (Bld) 0.3 % Normal 0.0-2.0 [facility] Comment on above: Performed By: #### 5 7021-8 ####AYDEE BAZZI L ([id number])[facility] ([facility])[address] [place] [address] Eosinophils (Bld) [#/Vol] 0.68 x10*3/uL Normal 0.00-0.70 [facility] Comment on above: Performed By: #### 5 7021-8 ####AYDEE BAZZI L (44965)[facility] ([facility])[address] [place] [address] Eosinophils/100 WBC (Bld) 7.1 % Normal 0.0-6.0 [facility] Comment on above: Performed By: #### 5 7021-8 ####AYDEE BAZZI L (30111)[facility] ([facility])[address] [place] [address] Erythrocyte distribution width (RBC) [Ratio] 18.6 % High 11.5-14.5 [facility] Comment on above: Performed By: #### 5 7021-8 ####AYDEE Bruce ([id number])[facility] ([facility])[address] [place] [address] Hematocrit (Bld) [Volume fraction] 23.5 % Low 36.0-46.0 [facility] Comment on above: Performed By: #### 5 7021-8 ####AYDEE Bruce (30302)[facility] ([facility])[address] [place] [address] Hemoglobin (Bld) [Mass/Vol] 7.3 g/dL Low 12.0-16.0 [facility] Comment on above: Performed By: #### 5 7021-8 ####AYDEE Bruce (94326)[facility] ([facility])[address] [place] [address] Immature granulocytes (Bld) [#/Vol] 0.07 x10*3/uL Normal 0.00-0.70 [facility] Comment on above: Performed By: #### 5 7021-8 ####AYDEE Bruce (38162)[facility] ([facility])[address] [place] [address] Immature granulocytes/100 WBC (Bld) 0.7 % Normal 0.0-0.9 [facility] Comment on above: Result Comment: Doris ture Granulocyte Count (IG) includes promyelocytes, myelocytes and metamyelocytes but does not include bands. Percent differential counts (%) should be interpreted in the context of the absolute cell counts (cells/UL). Performed By: #### 5 7021-8 ####AYDEE Bruce (47221)[facility] ([facility])[address] [place] [address] Lymphocytes (Bld) [#/Vol] 1.25 x10*3/uL Normal 1.20-4.80 [facility] Comment on above: Performed By: #### 5 7021-8 ####AYDEE Bruce (35373)[facility] ([facility])[address] [place] [address] Lymphocytes/100 WBC (Bld) 13.1 % Normal 13.0-44.0 [facility] Comment on above: Performed By: #### 5 7021-8 ####AYDEE Bruce ([id number])[facility] ([facility])[address] [place] [address] MCH (RBC) [Entitic mass] 29.0 pg Normal 26.0-34.0 [facility] Comment on above: Performed By: #### 5 7021-8 ####AYDEE Bruce (78089)[facility] ([facility])[address] [place] [address] MCHC (RBC) [Mass/Vol] 31.1 g/dL Low 32.0-36.0 [facility] Comment on above: Performed By: #### 5 7021-8 ####AYDEE Bruce ([id number])[facility] ([facility])[address] [place] [address] MCV (RBC) [Entitic vol] 93 fL Normal 80-100 [facility] Comment on above: Performed By: #### 5 7021-8 ####AYDEE rBuce ([id number])[facility] ([facility])[address] [place] [address] Monocytes (Bld) [#/Vol] 0.49 x10*3/uL Normal 0.10-1.00 [facility] Comment on above: Performed By: #### 5 7021-8 ####AYDEE Bruce ([id number])[facility] ([facility])[address] [place] [address] Monocytes/100 WBC (Bld) 5.1 % Normal 2.0-10.0 [facility] Comment on above: Performed By: #### 5 7021-8 ####AYDEE Bruce ([id number])[facility] ([facility])[address] [place] [address] Neutrophils (Bld) [#/Vol] 7.02 x10*3/uL Normal 1.20-7.70 [facility] Comment on above: Result Comment: Perc ent differential counts (%) should be interpreted in the context of the absolute cell counts (cells/uL). Performed By: #### 5 7021-8 ####AYDEE Bruce ([id number])[facility] ([facility])[address] [place] [address] Neutrophils/100 WBC (Bld) 73.7 % Normal 40.0-80.0 [facility] Comment on above: Performed By: #### 5 7021-8 ####AYDEE Bruce (25684)[facility] ([facility])[address] [place] [address] Nucleated RBC/100 WBC (Bld) [Ratio] 0.0 /100 WBCs Normal 0.0-0.0 [facility] Comment on above: Performed By: #### 5 7021-8 ####AYDEE Bruce (25513)[facility] ([facility])[address] [place] [address] Platelets (Bld) [#/Vol] 248 x10*3/uL Normal 150-450 [facility] Comment on above: Performed By: #### 5 7021-8 ####AYDEE Bruce (82593)[facility] ([facility])[address] [place] [address] RBC (Bld) [#/Vol] 2.52 x10*6/uL Low 4.00-5.20 [facility] Comment on above: Performed By: #### 5 7021-8 ####AYDEE BAZZI L ([id number])[facility] ([facility])[address] [place] [address] WBC (Bld) [#/Vol] 9.5 x10*3/uL Normal 4.4-11.3 [facility] Comment on above: Performed By: #### 5 7021-8 ####AYDEE BAZZI L (22555)[facility] ([facility])[address] [place] [address] Glucose Test strip manual (B ld) [Mass/Vol]on 10-09-2024 Glucose [Mass/Vol] 74 mg/dL Normal 74-99 [facility] Comment on above: Performed By: #### 2 341-6 ####AYDEE VALDEZTZLILIANA L (46785)[facility] ([facility])[address] [place] [address] Glucose [Mass/Vol] 93 mg/dL Normal 74-99 [facility] Comment on above: Performed By: #### 2 341-6 ####AYDEE CAMILOMOJOSE E L (89384)[facility] ([facility])[address] [place] [address] Glucose [Mass/Vol] 86 mg/dL Normal 74-99 [facility] Comment on above: Performed By: #### 2 341-6 ####AYDEE BAZZI L ([id number])[facility] ([facility])[address] [place] [address] Glucose [Mass/Vol] 118 mg/dL High [facility] Comment on above: Performed By: #### 2 341-6 ####AYDEE CAMILOMOTZER L (06085)[facility] ([facility])[address] [place] [address] Glucose [Mass/Vol] 102 mg/dL High 74-99 [facility] Comment on above: Performed By: #### 2 341-6 ####AYDEE BAZZI L (34425)[facility] ([facility])[address] [place] [address] Heparin.unfractionatedon Heparin unfractionated Chromogenic method Qn (PPP) 0.4 IU/mL Normal See Comment Below for Therapeutic Ranges [facility] Comment on above: Order Comment: Obtai [...] please refer to local Pharmacy and the [facility] Guidelines for Anticoagulation Therapy available on the [facility] intranet at: [email or web address] Performed By: #### 3 274-8 ####AYDEE Bruce (83221)[facility] ([facility])[address] [place] [address] Hepatic function 2000 panelo n 10-09-2024 Albumin BCP dye [Mass/Vol] 2.7 g/dL Low 3.4-5.0 [facility] Comment on above: Performed By: #### 2 4325-3 ####AYDEE ZHONGER L (37541)[facility] ([facility])[address] [place] [address] ALP [Catalytic activity/Vol] 246 U/L High 33-136 [facility] Comment on above: Performed By: #### 2 4325-3 ####AYDEE BAZZI L (90265)[facility] ([facility])[address] [place] [address] ALT With P-5'-P [Catalytic activity/Vol] 28 U/L Normal 7-45 [facility] Comment on above: Result Comment: Susan ents treated with Sulfasalazine may generate falsely decreased results for ALT. Performed By: #### 2 4325-3 ####AYDEE CAMILOMOTZER L (58954)[facility] ([facility])[address] [place] [address] AST With P-5'-P [Catalytic activity/Vol] 60 U/L High 9-39 [facility] Comment on above: Performed By: #### 2 4325-3 ####AYDEE VALDEZTZER L (10248)[facility] ([facility])[address] [place] [address] Bilirubin [Mass/Vol] 2.3 mg/dL High 0.0-1.2 [facility] Comment on above: Performed By: #### 2 4325-3 ####AYDEE Bruce ([id number])[facility] ([facility])[address] [place] [address] Bilirubin.direct [Mass/Vol] 0.7 mg/dL High 0.0-0.3 [facility] Comment on above: Performed By: #### 2 4325-3 ####AYDEE Bruce ([id number])[facility] ([facility])[address] [place] [address] Protein [Mass/Vol] 4.6 g/dL Low 6.4-8.2 [facility] Comment on above: Performed By: #### 2 4325-3 ####AYDEE Bruce ([id number])[facility] ([facility])[address] [place] [address] Magnesiumon 10-09-2024 Magnesium [Mass/Vol] 1.85 mg/dL Normal 1.60-2.40 [facility] Comment on above: Performed By: #### 1 9123-9 ####AYDEE Bruce ([id number])[facility] ([facility])[address] [place] [address] Phosphateon 10-09-2024 Phosphate [Mass/Vol] 1.5 mg/dL Low 2.5-4.9 [facility] Comment on above: Performed By: #### 2 777-1 ####AYDEE Bruce ([id number])[facility] ([facility])[address] [place] [address] XR CHEST 1 VIEWon 10-09-2024 XR CHEST 1 VIEW [facility] Bacteriaon 10-08-2024 Bacteria identified Respiratory culture Nom (Unsp spec) Normal [facility] Comment on above: Performed By: #### 3 2355-0 ####AYDEE Bruce ([id number])[facility] ([facility])[address] [place] [address] Basic metabolic 2000 panelon 10-08-2024 Anion gap [Moles/Vol] 13 mmol/L Normal 10-20 [facility] Comment on above: Performed By: #### 2 4321-2 ####AYDEE VALDEZTZER L ([id number])[facility] ([facility])[address] [place] [address] Calcium [Mass/Vol] 8.0 mg/dL Low 8.6-10.6 [facility] Comment on above: Performed By: #### 2 4321-2 ####AYDEE SCHMOTZER L ([id number])[facility] ([facility])[address] [place] [address] Chloride [Moles/Vol] 101 mmol/L Normal 98-107 [facility] Comment on above: Performed By: #### 2 4321-2 ####AYDEE SCHMOTZER L ([id number])[facility] ([facility])[address] [place] [address] CO2 [Moles/Vol] 28 mmol/L Normal 21-32 [facility] Comment on above: Performed By: #### 2 4321-2 ####AYDEE CAMILOMOTZER L ([id number])[facility] ([facility])[address] [place] [address] Creatinine [Mass/Vol] 1.60 mg/dL High 0.50-1.05 [facility] Comment on above: Performed By: #### 2 4321-2 ####AYDEE CAMILOMOTZER L ([id number])[facility] ([facility])[address] [place] [address] Glomerular filtration rate 35 mL/min/1.73m*2 Low >60 [facility] Comment on above: Result Comment: Calc ulations of estimated GFR are performed using the 2020 CKD-EPI Study Refit equation without the race variable for the IDMS-Traceable creatinine methods.https://jasn.asnjournals.org/content/early// N.1871385657 Performed By: #### 2 4321-2 ####AYDEE Bruce ([id number])[facility] ([facility])[address] [place] [address] Glucose [Mass/Vol] 125 mg/dL High 74-99 [facility] Comment on above: Performed By: #### 2 4321-2 ####AYDEE Bruce ([id number])[facility] ([facility])[address] [place] [address] Potassium [Moles/Vol] 3.5 mmol/L Normal 3.5-5.3 [facility] Comment on above: Performed By: #### 2 4321-2 ####AYDEE Bruce ([id number])[facility] ([facility])[address] [place] [address] Sodium [Moles/Vol] 138 mmol/L Normal 136-145 [facility] Comment on above: Performed By: #### 2 4321-2 ####AYDEE Bruce ([id number])[facility] ([facility])[address] [place] [address] Urea nitrogen [Mass/Vol] 24 mg/dL High 6-23 [facility] Comment on above: Performed By: #### 2 4321-2 ####AYDEE Bruce ([id number])[facility] ([facility])[address] [place] [address] CBC W Auto Differential pane l (Bld)on 10-08-2024 Basophils (Bld) [#/Vol] 0.02 x10*3/uL Normal 0.00-0.10 [facility] Comment on above: Performed By: #### 5 7021-8 ####AYDEE Bruce ([id number])[facility] ([facility])[id number] [place] [address] Basophils/100 WBC (Bld) 0.2 % Normal 0.0-2.0 [facility] Comment on above: Performed By: #### 5 7021-8 ####AYDEE Bruce ([id number])[facility] ([facility])[address] [place] [address] Eosinophils (Bld) [#/Vol] 0.69 x10*3/uL Normal 0.00-0.70 [facility] Comment on above: Performed By: #### 5 7021-8 ####AYDEE Bruce ([id number])[facility] ([facility])[address] [place] [address] Eosinophils/100 WBC (Bld) 7.1 % Normal 0.0-6.0 [facility] Comment on above: Performed By: #### 5 7021-8 ####AYDEE Bruce ([id number])[facility] ([facility])[address] [place] [address] Erythrocyte distribution width (RBC) [Ratio] 18.2 % High 11.5-14.5 [facility] Comment on above: Performed By: #### 5 7021-8 ####AYDEE Bruce ([id number])[facility] ([facility])[id number] [place] [address] Hematocrit (Bld) [Volume fraction] 22.7 % Low 36.0-46.0 [facility] Comment on above: Performed By: #### 5 7021-8 ####AYDEE Bruce ([id number])[facility] ([facility])[address] [place] [address] Hemoglobin (Bld) [Mass/Vol] 7.4 g/dL Low 12.0-16.0 [facility] Comment on above: Performed By: #### 5 7021-8 ####AYDEE Bruce ([id number])[facility] ([facility])[address] [place] [address] Immature granulocytes (Bld) [#/Vol] 0.08 x10*3/uL Normal 0.00-0.70 [facility] Comment on above: Performed By: #### 5 7021-8 ####AYDEE Bruce ([id number])[facility] ([facility])[address] [place] [address] Immature granulocytes/100 WBC (Bld) 0.8 % Normal 0.0-0.9 [facility] Comment on above: Result Comment: Doris ture Granulocyte Count (IG) includes promyelocytes, myelocytes and metamyelocytes but does not include bands. Percent differential counts (%) should be interpreted in the context of the absolute cell counts (cells/UL). Performed By: #### 5 7021-8 ####AYDEE Bruce ([id number])[facility] ([facility])[address] [place] [address] Lymphocytes (Bld) [#/Vol] 1.01 x10*3/uL Low 1.20-4.80 [facility] Comment on above: Performed By: #### 5 7021-8 ####AYDEE Bruce ([id number])[facility] ([facility])[address] [place] [address] Lymphocytes/100 WBC (Bld) 10.3 % Normal 13.0-44.0 [facility] Comment on above: Performed By: #### 5 7021-8 ####AYDEE Bruce ([id number])[facility] ([facility])[address] [place] [address] MCH (RBC) [Entitic mass] 29.5 pg Normal 26.0-34.0 [facility] Comment on above: Performed By: #### 5 7021-8 ####AYDEE Bruce ([id number])[facility] ([facility])[address] [place] [address] MCHC (RBC) [Mass/Vol] 32.6 g/dL Normal 32.0-36.0 [facility] Comment on above: Performed By: #### 5 7021-8 ####AYDEE Bruce ([id number])[facility] ([facility])[address] [place] [address] MCV (RBC) [Entitic vol] 90 fL Normal 80-100 [facility] Comment on above: Performed By: #### 5 7021-8 ####AYDEE Bruce ([id number])[facility] ([facility])[address] [place] [address] Monocytes (Bld) [#/Vol] 0.45 x10*3/uL Normal 0.10-1.00 [facility] Comment on above: Performed By: #### 5 7021-8 ####AYDEE Bruce ([id number])[facility] ([facility])[address] [place] [address] Monocytes/100 WBC (Bld) 4.6 % Normal 2.0-10.0 [facility] Comment on above: Performed By: #### 5 7021-8 ####AYDEE Bruce ([id number])[facility] ([facility])[address] [place] [address] Neutrophils (Bld) [#/Vol] 7.52 x10*3/uL Normal 1.20-7.70 [facility] Comment on above: Result Comment: Perc ent differential counts (%) should be interpreted in the context of the absolute cell counts (cells/uL). Performed By: #### 5 7021-8 ####AYDEE Bruce ([id number])[facility] ([facility])[address] [place] [address] Neutrophils/100 WBC (Bld) 77.0 % Normal 40.0-80.0 [facility] Comment on above: Performed By: #### 5 7021-8 ####AYDEE Bruce ([id number])[facility] ([facility])[address] [place] [address] Nucleated RBC/100 WBC (Bld) [Ratio] 0.0 /100 WBCs Normal 0.0-0.0 [facility] Comment on above: Performed By: #### 5 7021-8 ####AYDEE Bruce ([id number])[facility] ([facility])[address] [place] [address] Platelets (Bld) [#/Vol] 206 x10*3/uL Normal 150-450 [facility] Comment on above: Performed By: #### 5 7021-8 ####AYDEE Bruce ([id number])[facility] ([facility])[address] [place] [address] RBC (Bld) [#/Vol] 2.51 x10*6/uL Low 4.00-5.20 [facility] Comment on above: Performed By: #### 5 7021-8 ####AYDEE Bruce ([id number])[facility] ([facility])[address] [place] [address] WBC (Bld) [#/Vol] 9.8 x10*3/uL Normal 4.4-11.3 [facility] Comment on above: Performed By: #### 5 7021-8 ####AYDEE Bruce ([id number])[facility] ([facility])[id number] [place] [address] Glucose Test strip manual (B ld) [Mass/Vol]on 10-08-2024 Glucose [Mass/Vol] 92 mg/dL Normal 74-99 [facility] Comment on above: Performed By: #### 2 341-6 ####AYDEE Bruce ([id number])[facility] ([facility])[address] [place] [address] Glucose [Mass/Vol] 110 mg/dL High 74-99 [facility] Comment on above: Performed By: #### 2 341-6 ####AYDEE Bruce ([id number])[facility] ([facility])[address] [place] [address] Heparin.unfractionatedon Heparin unfractionated Chromogenic method Qn (PPP) 0.4 IU/mL Normal See Comment Below for Therapeutic Ranges [facility] Comment on above: Order Comment: Obtai [...] please refer to local Pharmacy and the [facility] Guidelines for Anticoagulation Therapy available on the [facility] intranet at: [email or web address] Performed By: #### 3 274-8 ####AYDEE Bruce ([id number])[facility] ([facility])[address] [place] [address] Hepatic function 2000 panelo n 10-08-2024 Albumin BCP dye [Mass/Vol] 2.8 g/dL Low 3.4-5.0 [facility] Comment on above: Performed By: #### 2 4325-3 ####AYDEE Bruce ([id number])[facility] ([facility])[address] [place] [address] ALP [Catalytic activity/Vol] 270 U/L High 33-136 [facility] Comment on above: Performed By: #### 2 4325-3 ####AYDEE Bruce ([id number])[facility] ([facility])[address] [place] [address] ALT With P-5'-P [Catalytic activity/Vol] 32 U/L Normal 7-45 [facility] Comment on above: Result Comment: Susan ents treated with Sulfasalazine may generate falsely decreased results for ALT. Performed By: #### 2 4325-3 ####AYDEE Bruce ([id number])[facility] ([facility])[address] [place] [address] AST With P-5'-P [Catalytic activity/Vol] 83 U/L High 9-39 [facility] Comment on above: Performed By: #### 2 4325-3 ####AYDEE Bruce ([id number])[facility] ([facility])[address] [place] [address] Bilirubin [Mass/Vol] 2.3 mg/dL High 0.0-1.2 [facility] Comment on above: Performed By: #### 2 4325-3 ####AYDEE Bruce ([id number])[facility] ([facility])[address] [place] [address] Bilirubin.direct [Mass/Vol] 0.8 mg/dL High 0.0-0.3 [facility] Comment on above: Performed By: #### 2 4325-3 ####AYDEE Bruce ([id number])[facility] ([facility])[address] [place] [address] Protein [Mass/Vol] 4.9 g/dL Low 6.4-8.2 [facility] Comment on above: Performed By: #### 2 4325-3 ####AYDEE Bruce ([id number])[facility] ([facility])[address] [place] [address] Magnesiumon 10-08-2024 Magnesium [Mass/Vol] 1.98 mg/dL Normal 1.60-2.40 [facility] Comment on above: Performed By: #### 1 9123-9 ####AYDEE Bruce ([id number])[facility] ([facility])[address] [place] [address] Phosphateon 10-08-2024 Phosphate [Mass/Vol] 2.6 mg/dL Normal 2.5-4.9 [facility] Comment on above: Performed By: #### 2 777-1 ####AYDEE Bruce (05546)[facility] ([facility])[address] [place] [address] XR CHEST 1 VIEWon 10-08-2024 XR CHEST 1 VIEW Normal [facility] Basic metabolic 2000 panelon 10-07-2024 Anion gap [Moles/Vol] 14 mmol/L Normal 10-20 [facility] Comment on above: Performed By: #### 2 4321-2 ####AYDEE Bruce ([id number])[facility] ([facility])[address] [place] [address] Calcium [Mass/Vol] 8.2 mg/dL Low 8.6-10.6 [facility] Comment on above: Performed By: #### 2 4321-2 ####AYDEE BAZZI L ([id number])[facility] ([facility])[address] [place] [address] Chloride [Moles/Vol] 97 mmol/L Low 98-107 [facility] Comment on above: Performed By: #### 2 4321-2 ####AYDEE CAMILOMOTZER L ([id number])[facility] ([facility])[address] [place] [address] CO2 [Moles/Vol] 27 mmol/L Normal 21-32 [facility] Comment on above: Performed By: #### 2 4321-2 ####AYDEE BAZZI L ([id number])[facility] ([facility])[address] [place] [address] Creatinine [Mass/Vol] 2.93 mg/dL High 0.50-1.05 [facility] Comment on above: Performed By: #### 2 4321-2 ####AYDEE BAZZI L ([id number])[facility] ([facility])[address] [place] [address] Glomerular filtration rate 17 mL/min/1.73m*2 Low >60 [facility] Comment on above: Result Comment: Calc ulations of estimated GFR are performed using the 2020 CKD-EPI Study Refit equation without the race variable for the IDMS-Traceable creatinine methods.https://jasn.asnjournals.org/content/early// N.4708172777 Performed By: #### 2 4321-2 ####AYDEE VALDEZTZER L ([id number])[facility] ([facility])[address] [place] [address] Glucose [Mass/Vol] 104 mg/dL High 74-99 [facility] Comment on above: Performed By: #### 2 4321-2 ####AYDEE CAMILOMOTZER L ([id number])[facility] ([facility])[address] [place] [address] Potassium [Moles/Vol] 5.4 mmol/L High 3.5-5.3 [facility] Comment on above: Performed By: #### 2 4321-2 ####AYDEE Bruce ([id number])[facility] ([facility])[address] [place] [address] Sodium [Moles/Vol] 133 mmol/L Low 136-145 [facility] Comment on above: Performed By: #### 2 4321-2 ####AYDEE Bruce ([id number])[facility] ([facility])[address] [place] [address] Urea nitrogen [Mass/Vol] 52 mg/dL High 6-23 [facility] Comment on above: Performed By: #### 2 4321-2 ####AYDEE Bruce ([id number])[facility] ([facility])[address] [place] [address] CBC W Auto Differential pane l (Bld)on 10-07-2024 Basophils (Bld) [#/Vol] 0.03 x10*3/uL Normal 0.00-0.10 [facility] Comment on above: Performed By: #### 5 7021-8 ####AYDEE Bruce ([id number])[facility] ([facility])[address] [place] [address] Basophils/100 WBC (Bld) 0.3 % Normal 0.0-2.0 [facility] Comment on above: Performed By: #### 5 7021-8 ####AYDEE Bruce ([id number])[facility] ([facility])[address] [place] [address] Eosinophils (Bld) [#/Vol] 1.01 x10*3/uL High 0.00-0.70 [facility] Comment on above: Performed By: #### 5 7021-8 ####AYDEE Bruce ([id number])[facility] ([facility])[address] [place] [address] Eosinophils/100 WBC (Bld) 8.8 % Normal 0.0-6.0 [facility] Comment on above: Performed By: #### 5 7021-8 ####AYDEE Bruce ([id number])[facility] ([facility])[address] [place] [address] Erythrocyte distribution width (RBC) [Ratio] 19.1 % High 11.5-14.5 [facility] Comment on above: Performed By: #### 5 7021-8 ####AYDEE Bruce ([id number])[facility] ([facility])[address] [place] [address] Hematocrit (Bld) [Volume fraction] 23.4 % Low 36.0-46.0 [facility] Comment on above: Performed By: #### 5 7021-8 ####AYDEE Bruce ([id number])[facility] ([facility])[address] [place] [address] Hemoglobin (Bld) [Mass/Vol] 7.7 g/dL Low 12.0-16.0 [facility] Comment on above: Performed By: #### 5 7021-8 ####AYDEE Bruce ([id number])[facility] ([facility])[address] [place] [address] Immature granulocytes (Bld) [#/Vol] 0.11 x10*3/uL Normal 0.00-0.70 [facility] Comment on above: Performed By: #### 5 7021-8 ####AYDEE Bruce ([id number])[facility] ([facility])[address] [place] [address] Immature granulocytes/100 WBC (Bld) 1.0 % High 0.0-0.9 [facility] Comment on above: Result Comment: Doris ture Granulocyte Count (IG) includes promyelocytes, myelocytes and metamyelocytes but does not include bands. Percent differential counts (%) should be interpreted in the context of the absolute cell counts (cells/UL). Performed By: #### 5 7021-8 ####AYDEE Bruce ([id number])[facility] ([facility])[address] [place] [address] Lymphocytes (Bld) [#/Vol] 1.33 x10*3/uL Normal 1.20-4.80 [facility] Comment on above: Performed By: #### 5 7021-8 ####AYDEE Bruce ([id number])[facility] ([facility])[address] [place] [address] Lymphocytes/100 WBC (Bld) 11.6 % Normal 13.0-44.0 [facility] Comment on above: Performed By: #### 5 7021-8 ####YADEE Bruce ([id number])[facility] ([facility])[address] [place] [address] MCH (RBC) [Entitic mass] 30.2 pg Normal 26.0-34.0 [facility] Comment on above: Performed By: #### 5 7021-8 ####AYDEE Bruce ([id number])[facility] ([facility])[address] [place] [address] MCHC (RBC) [Mass/Vol] 32.9 g/dL Normal 32.0-36.0 [facility] Comment on above: Performed By: #### 5 7021-8 ####AYDEE Bruce ([id number])[facility] ([facility])[address] [place] [address] MCV (RBC) [Entitic vol] 92 fL Normal 80-100 [facility] Comment on above: Performed By: #### 5 7021-8 ####AYDEE Bruce ([id number])[facility] ([facility])[address] [place] [address] Monocytes (Bld) [#/Vol] 0.71 x10*3/uL Normal 0.10-1.00 [facility] Comment on above: Performed By: #### 5 7021-8 ####AYDEE Bruce ([id number])[facility] ([facility])[address] [place] [address] Monocytes/100 WBC (Bld) 6.2 % Normal 2.0-10.0 [facility] Comment on above: Performed By: #### 5 7021-8 ####AYDEE Bruce ([id number])[facility] ([facility])[address] [place] [address] Neutrophils (Bld) [#/Vol] 8.32 x10*3/uL High 1.20-7.70 [facility] Comment on above: Result Comment: Perc ent differential counts (%) should be interpreted in the context of the absolute cell counts (cells/uL). Performed By: #### 5 7021-8 ####AYDEE Bruce ([id number])[facility] ([facility])[address] [place] [address] Neutrophils/100 WBC (Bld) 72.1 % Normal 40.0-80.0 [facility] Comment on above: Performed By: #### 5 7021-8 ####AYDEE Bruce ([id number])[facility] ([facility])[address] [place] [address] Nucleated RBC/100 WBC (Bld) [Ratio] 0.0 /100 WBCs Normal 0.0-0.0 [facility] Comment on above: Performed By: #### 5 7021-8 ####AYDEE Bruce ([id number])[facility] ([facility])[address] [place] [address] Platelets (Bld) [#/Vol] 185 x10*3/uL Normal 150-450 [facility] Comment on above: Performed By: #### 5 7021-8 ####AYDEE Bruce ([id number])[facility] ([facility])[address] [place] [address] RBC (Bld) [#/Vol] 2.55 x10*6/uL Low 4.00-5.20 [facility] Comment on above: Performed By: #### 5 7021-8 ####AYDEE Brcue ([id number])[facility] ([facility])[address] [place] [address] WBC (Bld) [#/Vol] 11.5 x10*3/uL High 4.4-11.3 [facility] Comment on above: Performed By: #### 5 7021-8 ####AYDEE Bruce ([id number])[facility] ([facility])[address] [place] [address] Glucose Test strip manual (B ld) [Mass/Vol]on 10-07-2024 Glucose [Mass/Vol] 103 mg/dL High 74-99 [facility] Comment on above: Performed By: #### 2 341-6 ####AYDEE Bruce ([id number])[facility] ([facility])[address] [place] [address] Glucose [Mass/Vol] 102 mg/dL High -99 [facility] Comment on above: Performed By: #### 2 341-6 ####AYDEE Bruce ([id number])[facility] ([facility])[address] [place] [address] Glucose [Mass/Vol] 116 mg/dL High 74-99 [facility] Comment on above: Performed By: #### 2 341-6 ####AYDEE Bruce ([id number])[facility] ([facility])[address] [place] [address] Glucose [Mass/Vol] 108 mg/dL High 74-99 [facility] Comment on above: Performed By: #### 2 341-6 ####AYDEE Bruce ([id number])[facility] ([facility])[address] [place] [address] Glucose [Mass/Vol] 98 mg/dL Normal 74-99 [facility] Comment on above: Performed By: #### 2 341-6 ####AYDEE Bruce ([id number])[facility] ([facility])[address] [place] [address] Heparin.unfractionatedon Heparin unfractionated Chromogenic method Qn (PPP) 0.5 IU/mL Normal See Comment Below for Therapeutic Ranges [facility] Comment on above: Order Comment: Obtai [...] please refer to local Pharmacy and the [facility] Guidelines for Anticoagulation Therapy available on the [facility] intranet at: [email or web address] Performed By: #### 3 274-8 ####AYDEE Bruce ([id number])[facility] ([facility])[id number] [place] [id number] Hepatic function 2000 panelo n 10-07-2024 Albumin BCP dye [Mass/Vol] 2.6 g/dL Low 3.4-5.0 [facility] Comment on above: Performed By: #### 2 4325-3 ####AYDEE Bruce ([id number])[facility] ([facility])[address] [place] [address] ALP [Catalytic activity/Vol] 232 U/L High 33-136 [facility] Comment on above: Performed By: #### 2 4325-3 ####AYDEE Bruce ([id number])[facility] ([facility])[address] [place] [address] ALT With P-5'-P [Catalytic activity/Vol] 28 U/L Normal 7-45 [facility] Comment on above: Result Comment: Susan ents treated with Sulfasalazine may generate falsely decreased results for ALT. Performed By: #### 2 4325-3 ####AYDEE Bruce ([id number])[facility] ([facility])[address] [place] [address] AST With P-5'-P [Catalytic activity/Vol] 68 U/L High 9-39 [facility] Comment on above: Performed By: #### 2 4325-3 ####AYDEE Bruce ([id number])[facility] ([facility])[address] [place] [address] Bilirubin [Mass/Vol] 1.9 mg/dL High 0.0-1.2 [facility] Comment on above: Performed By: #### 2 4325-3 ####AYDEE Bruce ([id number])[facility] ([facility])[address] [place] [address] Bilirubin.direct [Mass/Vol] 0.6 mg/dL High 0.0-0.3 [facility] Comment on above: Performed By: #### 2 4325-3 ####AYDEE Bruce ([id number])[facility] ([facility])[address] [place] [address] Protein [Mass/Vol] 4.8 g/dL Low 6.4-8.2 [facility] Comment on above: Performed By: #### 2 4325-3 ####AYDEE Bruce ([id number])[facility] ([facility])[address] [place] [address] Hepatitis B virus surface Ab on 10-07-2024 HBV surface Ab Qn (S) 4.8 mIU/mL Normal <10.0 [facility] Comment on above: Result Comment: Inte rpretive Criteria: <10 mIU/mL Nonreactive >=10 mIU/mL ReactiveBiotin interference may cause falsely decreased results. Patients taking a Biotin dose of up to 5 mg/day should refrain from taking Biotin for 24 hours before sample collection. Providers may contact their local laboratory for further information. Performed By: #### 1 6935-9 ####AYDEE Bruce ([id number])[facility] ([facility])[address] [place] [address] Magnesiumon 10-07-2024 Magnesium [Mass/Vol] 2.30 mg/dL Normal 1.60-2.40 [facility] Comment on above: Performed By: #### 1 9123-9 ####AYDEE Bruce ([id number])[facility] ([facility])[address] [place] [address] Phosphateon 10-07-2024 Phosphate [Mass/Vol] 4.8 mg/dL Normal 2.5-4.9 [facility] Comment on above: Performed By: #### 2 777-1 ####AYDEE Bruce ([id number])[facility] ([facility])[address] [place] [address] Renal function 2000 panelon 10-07-2024 Albumin BCP dye [Mass/Vol] 2.5 g/dL Low 3.4-5.0 [facility] Comment on above: Performed By: #### 2 4362-6 ####AYDEE Bruce ([id number])[facility] ([facility])[address] [place] [address] Anion gap [Moles/Vol] 14 mmol/L Normal 10-20 [facility] Comment on above: Performed By: #### 2 4362-6 ####AYDEE Bruce ([id number])[facility] ([facility])[address] [place] [address] Calcium [Mass/Vol] 8.0 mg/dL Low 8.6-10.6 [facility] Comment on above: Performed By: #### 2 4362-6 ####AYDEE Bruce ([id number])[facility] ([facility])[address] [place] [address] Chloride [Moles/Vol] 97 mmol/L Low 98-107 [facility] Comment on above: Performed By: #### 2 4362-6 ####AYDEE Bruce ([id number])[facility] ([facility])[address] [place] [address] 89754 CO2 [Moles/Vol] 27 mmol/L Normal 21-32 [facility] Comment on above: Performed By: #### 2 4362-6 ####AYDEE Bruce ([id number])[facility] ([facility])[address] [place] [address] Creatinine [Mass/Vol] 3.24 mg/dL High 0.50-1.05 [facility] Comment on above: Performed By: #### 2 4362-6 ####AYDEE Bruce ([id number])[facility] ([facility])[address] [facility] [place] [address] Glomerular filtration rate 15 mL/min/1.73m*2 Low >60 [facility] Comment on above: Result Comment: Calc ulations of estimated GFR are performed using the 2020 CKD-EPI Study Refit equation without the race variable for the IDMS-Traceable creatinine methods.https://jasn.asnjournals.org/content/early// N.5182708609 Performed By: #### 2 4362-6 ####AYDEE Bruce ([id number])[facility] ([facility])[address] [place] [address] Glucose [Mass/Vol] 122 mg/dL High 74-99 [facility] Comment on above: Performed By: #### 2 4362-6 ####AYDEE Bruce ([id number])[facility] ([facility])[address] [place] [address] Phosphate [Mass/Vol] 5.2 mg/dL High 2.5-4.9 [facility] Comment on above: Performed By: #### 2 4362-6 ####AYDEE Bruce ([id number])[facility] ([facility])[address] [place] [address] Potassium [Moles/Vol] 5.1 mmol/L Normal 3.5-5.3 [facility] Comment on above: Performed By: #### 2 4362-6 ####AYDEE Bruce ([id number])[facility] ([facility])[address] [place] [address] Sodium [Moles/Vol] 133 mmol/L Low 136-145 [facility] Comment on above: Performed By: #### 2 4362-6 ####AYDEE Bruce ([id number])[facility] ([facility])[address] [place] [address] Urea nitrogen [Mass/Vol] 58 mg/dL High 6-23 [facility] Comment on above: Performed By: #### 2 4362-6 ####AYDEE Bruce ([id number])[facility] ([facility])[address] [place] [address] XR CHEST 1 VIEWon 10-07-2024 XR CHEST 1 VIEW Normal [facility] Basic metabolic 2000 panelon 10-06-2024 Anion gap [Moles/Vol] 15 mmol/L Normal 10-20 [facility] Comment on above: Performed By: #### 2 4321-2 ####AYDEE Bruce ([id number])[facility] ([facility])[address] [place] [address] Calcium [Mass/Vol] 7.8 mg/dL Low 8.6-10.6 [facility] Comment on above: Performed By: #### 2 4321-2 ####AYDEE Bruce ([id number])[facility] ([facility])[address] [place] [address] Chloride [Moles/Vol] 100 mmol/L Normal 98-107 [facility] Comment on above: Performed By: #### 2 4321-2 ####AYDEE Bruce ([id number])[facility] ([facility])[address] [place] [address] CO2 [Moles/Vol] 27 mmol/L Normal 21-32 [facility] Comment on above: Performed By: #### 2 4321-2 ####AYDEE Bruce ([id number])[facility] ([facility])[address] [place] [address] Creatinine [Mass/Vol] 1.88 mg/dL High 0.50-1.05 [facility] Comment on above: Performed By: #### 2 4321-2 ####AYDEE BAZZI L ([id number])[facility] ([facility])[address] [place] [address] Glomerular filtration rate 29 mL/min/1.73m*2 Low >60 [facility] Comment on above: Result Comment: Calc ulations of estimated GFR are performed using the 2020 CKD-EPI Study Refit equation without the race variable for the IDMS-Traceable creatinine methods.https://jasn.asnjournals.org/content/early/ N.7380748283 Performed By: #### 2 4321-2 ####AYDEE BAZZI L ([id number])[facility] ([facility])[address] [place] [address] Glucose [Mass/Vol] 132 mg/dL High 74-99 [facility] Comment on above: Performed By: #### 2 4321-2 ####AYDEE BAZZI L ([id number])[facility] ([facility])[address] [place] [address] Potassium [Moles/Vol] 4.7 mmol/L Normal 3.5-5.3 [facility] Comment on above: Performed By: #### 2 4321-2 ####AYDEE CAMILOMOTZER L ([id number])[facility] ([facility])[address] [place] [address] Sodium [Moles/Vol] 137 mmol/L Normal 136-145 [facility] Comment on above: Performed By: #### 2 4321-2 ####AYDEE CAMILOMOTZER L ([id number])[facility] ([facility])[address] [place] [address] Urea nitrogen [Mass/Vol] 36 mg/dL High 6-23 [facility] Comment on above: Performed By: #### 2 4321-2 ####AYDEE CAMILOMOTZER L ([id number])[facility] ([facility])[address] [place] [address] CBC W Auto Differential pane l (Bld)on 10-06-2024 Basophils (Bld) [#/Vol] 0.06 x10*3/uL Normal 0.00-0.10 [facility] Comment on above: Performed By: #### 5 7021-8 ####AYDEE Bruce ([id number])[facility] ([facility])[address] [place] [address] Basophils/100 WBC (Bld) 0.4 % Normal 0.0-2.0 [facility] Comment on above: Performed By: #### 5 7021-8 ####AYDEE Bruce ([id number])[facility] ([facility])[address] [place] [address] Eosinophils (Bld) [#/Vol] 1.02 x10*3/uL High 0.00-0.70 [facility] Comment on above: Performed By: #### 5 7021-8 ####AYDEE Bruce ([id number])[facility] ([facility])[address] [place] [address] Eosinophils/100 WBC (Bld) 7.1 % Normal 0.0-6.0 [facility] Comment on above: Performed By: #### 5 7021-8 ####AYDEE Bruce ([id number])[facility] ([facility])[address] [place] [address] Erythrocyte distribution width (RBC) [Ratio] 20.0 % High 11.5-14.5 [facility] Comment on above: Performed By: #### 5 7021-8 ####AYDEE Bruce ([id number])[facility] ([facility])[address] [place] [address] Hematocrit (Bld) [Volume fraction] 24.0 % Low 36.0-46.0 [facility] Comment on above: Performed By: #### 5 7021-8 ####AYDEE Bruce (55232)[facility] ([facility])[address] [place] [address] Hemoglobin (Bld) [Mass/Vol] 7.7 g/dL Low 12.0-16.0 [facility] Comment on above: Performed By: #### 5 7021-8 ####AYDEE Bruce ([id number])[facility] ([facility])[address] [place] [address] Immature granulocytes (Bld) [#/Vol] 0.17 x10*3/uL Normal 0.00-0.70 [facility] Comment on above: Performed By: #### 5 7021-8 ####AYDEE BAZZI L (89686)[facility] ([facility])[address] [place] [address] Immature granulocytes/100 WBC (Bld) 1.2 % High 0.0-0.9 [facility] Comment on above: Result Comment: Doris ture Granulocyte Count (IG) includes promyelocytes, myelocytes and metamyelocytes but does not include bands. Percent differential counts (%) should be interpreted in the context of the absolute cell counts (cells/UL). Performed By: #### 5 7021-8 ####AYDEE Bruce ([id number])[facility] ([facility])[address] [place] [address] Lymphocytes (Bld) [#/Vol] 1.48 x10*3/uL Normal 1.20-4.80 [facility] Comment on above: Performed By: #### 5 7021-8 ####AYDEE Bruce ([id number])[facility] ([facility])[address] [place] [address] Lymphocytes/100 WBC (Bld) 10.3 % Normal 13.0-44.0 [facility] Comment on above: Performed By: #### 5 7021-8 ####AYDEE Bruce ([id number])[facility] ([facility])[address] [place] [address] MCH (RBC) [Entitic mass] 29.3 pg Normal 26.0-34.0 [facility] Comment on above: Performed By: #### 5 7021-8 ####AYDEE Bruce (41956)[facility] ([facility])[address] [place] [address] MCHC (RBC) [Mass/Vol] 32.1 g/dL Normal 32.0-36.0 [facility] Comment on above: Performed By: #### 5 7021-8 ####AYDEE Bruce ([id number])[facility] ([facility])[address] [place] [address] MCV (RBC) [Entitic vol] 91 fL Normal 80-100 [facility] Comment on above: Performed By: #### 5 7021-8 ####AYDEE Bruce ([id number])[facility] ([facility])[address] [place] [address] Monocytes (Bld) [#/Vol] 0.85 x10*3/uL Normal 0.10-1.00 [facility] Comment on above: Performed By: #### 5 7021-8 ####AYDEE Bruce (57186)[facility] ([facility])[address] [place] [address] Monocytes/100 WBC (Bld) 5.9 % Normal 2.0-10.0 [facility] Comment on above: Performed By: #### 5 7021-8 ####AYDEE Bruce ([id number])[facility] ([facility])[address] [place] [address] Neutrophils (Bld) [#/Vol] 10.84 x10*3/uL High 1.20-7.70 [facility] Comment on above: Result Comment: Perc ent differential counts (%) should be interpreted in the context of the absolute cell counts (cells/uL). Performed By: #### 5 7021-8 ####AYDEE Bruce ([id number])[facility] ([facility])[address] [place] [address] Neutrophils/100 WBC (Bld) 75.1 % Normal 40.0-80.0 [facility] Comment on above: Performed By: #### 5 7021-8 ####AYDEE Bruce ([id number])[facility] ([facility])[address] [place] [address] Nucleated RBC/100 WBC (Bld) [Ratio] 0.0 /100 WBCs Normal 0.0-0.0 [facility] Comment on above: Performed By: #### 5 7021-8 ####AYDEE Bruce ([id number])[facility] ([facility])[address] [place] [address] Platelets (Bld) [#/Vol] 174 x10*3/uL Normal 150-450 [facility] Comment on above: Performed By: #### 5 7021-8 ####AYDEE Bruce ([id number])[facility] ([facility])[address] [place] [address] RBC (Bld) [#/Vol] 2.63 x10*6/uL Low 4.00-5.20 [facility] Comment on above: Performed By: #### 5 7021-8 ####AYDEE Bruce (60714)[facility] ([facility])[address] [place] [address] WBC (Bld) [#/Vol] 14.4 x10*3/uL High 4.4-11.3 [facility] Comment on above: Performed By: #### 5 7021-8 ####AYDEE Bruce ([id number])[facility] ([facility])[address] [place] [address] Calcidiolon 10-06-2024 25-hydroxyvitamin D3 [Mass/Vol] 34 ng/mL Normal 30-100 [facility] Comment on above: Order Comment: Defic iency: < 20 ng/mlInsufficiency: 20-29 ng/mlSufficiency: 30-100 ng/mlThis assay accurately quantifies the sum of Vitamin D3, 25-Hydroxy and Vitamin D2,25-Hydroxy. Performed By: #### 1 989-3 ####AYDEE Bruce ([id number])[facility] ([facility])[address] [place] [address] Glucose Test strip manual (B ld) [Mass/Vol]on 10-06-2024 Glucose [Mass/Vol] 91 mg/dL Normal 74-99 [facility] Comment on above: Performed By: #### 2 341-6 ####AYDEE Bruce ([id number])[facility] ([facility])[address] [place] [address] Glucose [Mass/Vol] 93 mg/dL Normal 74-99 [facility] Comment on above: Result Comment: VIVIAN GEE Performed By: #### 2 341-6 ####AYDEE Bruce (94534)[facility] ([facility])[address] [place] [address] Heparin.unfractionatedon Heparin unfractionated Chromogenic method Qn (PPP) 0.5 IU/mL Normal See Comment Below for Therapeutic Ranges [facility] Comment on above: Order Comment: Obtai [...] please refer to local Pharmacy and the [facility] Guidelines for Anticoagulation Therapy available on the [facility] intranet at: [email or web address] Performed By: #### 3 274-8 ####AYDEE Bruce (78392)[facility] ([facility])[address] [place] [address] Hepatic function 2000 panelo n 10-06-2024 Albumin BCP dye [Mass/Vol] 2.6 g/dL Low 3.4-5.0 [facility] Comment on above: Performed By: #### 2 4325-3 ####AYDEE Bruce ([id number])[facility] ([facility])[address] [place] [address] ALP [Catalytic activity/Vol] 229 U/L High 33-136 [facility] Comment on above: Performed By: #### 2 4325-3 ####AYDEE Bruce ([id number])[facility] ([facility])[address] [place] [address] ALT With P-5'-P [Catalytic activity/Vol] 31 U/L Normal 7-45 [facility] Comment on above: Result Comment: Susan ents treated with Sulfasalazine may generate falsely decreased results for ALT. Performed By: #### 2 4325-3 ####AYDEE Bruce ([id number])[facility] ([facility])[address] [place] [address] AST With P-5'-P [Catalytic activity/Vol] 65 U/L High 9-39 [facility] Comment on above: Performed By: #### 2 4325-3 ####AYDEE Bruce ([id number])[facility] ([facility])[address] [place] [address] Bilirubin [Mass/Vol] 2.2 mg/dL High 0.0-1.2 [facility] Comment on above: Performed By: #### 2 4325-3 ####AYDEE Bruce ([id number])[facility] ([facility])[address] [place] [address] Bilirubin.direct [Mass/Vol] 0.8 mg/dL High 0.0-0.3 [facility] Comment on above: Performed By: #### 2 4325-3 ####AYDEE Bruce ([id number])[facility] ([facility])[address] [place] [address] Protein [Mass/Vol] 4.6 g/dL Low 6.4-8.2 [facility] Comment on above: Performed By: #### 2 4325-3 ####AYDEE Bruce (50876)[facility] ([facility])[address] [place] [address] Magnesiumon 10-06-2024 Magnesium [Mass/Vol] 2.11 mg/dL Normal 1.60-2.40 [facility] Comment on above: Performed By: #### 1 9123-9 ####AYDEE Bruce (65946)[facility] ([facility])[address] [place] [address] PT and aPTT panel Coag (PPP) on 10-06-2024 aPTT Coag (PPP) [Time] 57 s High 26-36 [facility] Comment on above: Order Comment: The A PTT is no longer used for monitoring Unfractionated Heparin Therapy. For monitoring Heparin Therapy, use the Heparin Assay. Performed By: #### 3 4529-8 ####AYDEE Bruce ([id number])[facility] ([facility])[address] [place] [address] INR Coag (PPP) [Relative time] 1.0 Normal 0.9-1.1 [facility] Comment on above: Order Comment: The A PTT is no longer used for monitoring Unfractionated Heparin Therapy. For monitoring Heparin Therapy, use the Heparin Assay. Performed By: #### 3 4529-8 ####AYDEE Bruce ([id number])[facility] ([facility])[address] [place] [address] PT Coag (PPP) [Time] 10.8 s Normal 9.8-12.4 [facility] Comment on above: Order Comment: The A PTT is no longer used for monitoring Unfractionated Heparin Therapy. For monitoring Heparin Therapy, use the Heparin Assay. Performed By: #### 3 4529-8 ####AYDEE Bruce (47217)[facility] ([facility])[address] [place] [address] Phosphateon 10-06-2024 Phosphate [Mass/Vol] 3.2 mg/dL Normal 2.5-4.9 [facility] Comment on above: Performed By: #### 2 777-1 ####AYDEE Bruce ([id number])[facility] ([facility])[address] [place] [address] XR ABDOMEN 1 VIEWon 10-07-19 25 XR ABDOMEN 1 VIEW Normal [facility] Basic metabolic 2000 panelon 10-05-2024 Anion gap [Moles/Vol] 18 mmol/L Normal 10-20 [facility] Comment on above: Performed By: #### 2 4321-2 ####AYDEE BAZZI L ([id number])[facility] ([facility])[address] [place] [address] Calcium [Mass/Vol] 8.1 mg/dL Low 8.6-10.6 [facility] Comment on above: Performed By: #### 2 4321-2 ####AYDEE CAMILOMOTZER L ([id number])[facility] ([facility])[address] [place] [address] Chloride [Moles/Vol] 98 mmol/L Normal 98-107 [facility] Comment on above: Performed By: #### 2 4321-2 ####AYDEE CAMILOMOGILBERTOER L ([id number])[facility] ([facility])[address] [place] [address] CO2 [Moles/Vol] 23 mmol/L Normal 21-32 [facility] Comment on above: Performed By: #### 2 4321-2 ####AYDEE CAMILOMOTZLILIANA L (92606)[facility] ([facility])[address] [place] [address] Creatinine [Mass/Vol] 2.58 mg/dL High 0.50-1.05 [facility] Comment on above: Performed By: #### 2 4321-2 ####AYDEE CAMILOMOTZER L ([id number])[facility] ([facility])[address] [place] [address] Glomerular filtration rate 20 mL/min/1.73m*2 Low >60 [facility] Comment on above: Result Comment: Calc ulations of estimated GFR are performed using the 2020 CKD-EPI Study Refit equation without the race variable for the IDMS-Traceable creatinine methods.https://jasn.asnjournals.org/content/early/ N.9143052081 Performed By: #### 2 4321-2 ####AYDEE Bruce ([id number])[facility] ([facility])[address] [facility] [address] Glucose [Mass/Vol] 133 mg/dL High 74-99 [facility] Comment on above: Performed By: #### 2 4321-2 ####AYDEE Bruce ([id number])[facility] ([facility])[address] [place] [address] Potassium [Moles/Vol] 5.8 mmol/L High 3.5-5.3 [facility] Comment on above: Performed By: #### 2 4321-2 ####AYDEE Burce ([id number])[facility] ([facility])[address] [place] [address] Sodium [Moles/Vol] 133 mmol/L Low 136-145 [facility] Comment on above: Performed By: #### 2 4321-2 ####AYDEE Bruce ([id number])[facility] ([facility])[address] [place] [address] Urea nitrogen [Mass/Vol] 53 mg/dL High 6-23 [facility] Comment on above: Performed By: #### 2 4321-2 ####AYDEE Bruce ([id number])[facility] ([facility])[address] [place] [address] Blood type and Indirect anti body screen panel (Bld)on 10-05-2024 ABO group Nom (Bld) B Normal [facility] Comment on above: Performed By: #### 3 4532-2 ####AYDEE Bruce ([id number])[facility] [facility] ([facility] [facility])[address] [place] [address] Blood group antibody screen Ql Negative [facility] Comment on above: Performed By: #### 3 4532-2 ####AYDEE Bruce ([id number])[facility] ([facility] [place] [facility])[address] [place] [address] D Ag Ql (Bld) Positive Normal [facility] Comment on above: Performed By: #### 3 4532-2 ####AYDEE Bruce ([id number])[facility] ([facility] [place] [facility])[id number] [place] [address]99 CBC W Auto Differential pane l (Bld)on 10-05-2024 Basophils (Bld) [#/Vol] 0.08 x10*3/uL Normal 0.00-0.10 [facility] Comment on above: Performed By: #### 5 7021-8 ####AYDEE Bruce ([id number])[facility] ([facility])[address] [place] [address] Basophils/100 WBC (Bld) 0.5 % Normal 0.0-2.0 [facility] Comment on above: Performed By: #### 5 7021-8 ####AYDEE Bruce ([id number])[facility] ([facility])[address] [place] [address]68 Eosinophils (Bld) [#/Vol] 0.97 x10*3/uL High 0.00-0.70 [facility] Comment on above: Performed By: #### 5 7021-8 ####AYDEE Bruce ([id number])[facility] ([facility])[id number] [place] [address] Eosinophils/100 WBC (Bld) 6.6 % Normal 0.0-6.0 [facility] Comment on above: Performed By: #### 5 7021-8 ####AYDEE Bruce ([id number])[facility] ([facility])[address] [place] [address]22 Erythrocyte distribution width (RBC) [Ratio] 19.8 % High 11.5-14.5 [facility] Comment on above: Performed By: #### 5 7021-8 ####AYDEE Bruce ([id number])[facility] ([facility])[address] [place] [address] Hematocrit (Bld) [Volume fraction] 24.6 % Low 36.0-46.0 [facility] Comment on above: Performed By: #### 5 7021-8 ####AYDEE Bruce ([id number])[facility] ([facility])[address] [place] [address] Hemoglobin (Bld) [Mass/Vol] 8.0 g/dL Low 12.0-16.0 [facility] Comment on above: Performed By: #### 5 7021-8 ####AYDEE BAZZI L ([id number])[facility] ([facility])[address] [place] [address] Immature granulocytes (Bld) [#/Vol] 0.18 x10*3/uL Normal 0.00-0.70 [facility] Comment on above: Performed By: #### 5 7021-8 ####AYDEE Bruce ([id number])[facility] ([facility])[address] [place] [address] Immature granulocytes/100 WBC (Bld) 1.2 % High 0.0-0.9 [facility] Comment on above: Result Comment: Doris ture Granulocyte Count (IG) includes promyelocytes, myelocytes and metamyelocytes but does not include bands. Percent differential counts (%) should be interpreted in the context of the absolute cell counts (cells/UL). Performed By: #### 5 7021-8 ####AYDEE Bruce ([id number])[facility] ([facility])[address] [place] [address] Lymphocytes (Bld) [#/Vol] 1.53 x10*3/uL Normal 1.20-4.80 [facility] Comment on above: Performed By: #### 5 7021-8 ####AYDEE BAZZI L ([id number])[facility] ([facility])[address] [place] [address] Lymphocytes/100 WBC (Bld) 10.4 % Normal 13.0-44.0 [facility] Comment on above: Performed By: #### 5 7021-8 ####AYDEE BAZZI L ([id number])[facility] ([facility])[address] [place] [address] MCH (RBC) [Entitic mass] 30.4 pg Normal 26.0-34.0 [facility] Comment on above: Performed By: #### 5 7021-8 ####AYDEE Bruce ([id number])[facility] ([facility])[address] [place] [address] MCHC (RBC) [Mass/Vol] 32.5 g/dL Normal 32.0-36.0 [facility] Comment on above: Performed By: #### 5 7021-8 ####AYDEE Bruce ([id number])[facility] ([facility])[address] [place] [address] MCV (RBC) [Entitic vol] 94 fL Normal 80-100 [facility] Comment on above: Performed By: #### 5 7021-8 ####AYDEE Bruce ([id number])[facility] ([facility])[address] [place] [address] Monocytes (Bld) [#/Vol] 0.78 x10*3/uL Normal 0.10-1.00 [facility] Comment on above: Performed By: #### 5 7021-8 ####AYDEE Bruce ([id number])[facility] ([facility])[address] [place] [address] Monocytes/100 WBC (Bld) 5.3 % Normal 2.0-10.0 [facility] Comment on above: Performed By: #### 5 7021-8 ####AYDEE Bruce ([id number])[facility] ([facility])[address] [place] [address] Neutrophils (Bld) [#/Vol] 11.21 x10*3/uL High 1.20-7.70 [facility] Comment on above: Result Comment: Perc ent differential counts (%) should be interpreted in the context of the absolute cell counts (cells/uL). Performed By: #### 5 7021-8 ####AYDEE Bruce ([id number])[facility] ([facility])[address] [place] [address] Neutrophils/100 WBC (Bld) 76.0 % Normal 40.0-80.0 [facility] Comment on above: Performed By: #### 5 7021-8 ####AYDEE Bruce ([id number])[facility] ([facility])[address] [place] [address] Nucleated RBC/100 WBC (Bld) [Ratio] 0.0 /100 WBCs Normal 0.0-0.0 [facility] Comment on above: Performed By: #### 5 7021-8 ####AYDEE Bruce ([id number])[facility] ([facility])[address] [place] [address] Platelets (Bld) [#/Vol] 169 x10*3/uL Normal 150-450 [facility] Comment on above: Performed By: #### 5 7021-8 ####AYDEE Bruce ([id number])[facility] ([facility])[address] [place] [address] RBC (Bld) [#/Vol] 2.63 x10*6/uL Low 4.00-5.20 [facility] Comment on above: Performed By: #### 5 7021-8 ####AYDEE Bruce ([id number])[facility] ([facility])[address] [place] [address] WBC (Bld) [#/Vol] 14.8 x10*3/uL High 4.4-11.3 [facility] Comment on above: Performed By: #### 5 7021-8 ####AYDEE Bruce ([id number])[facility] ([facility])[address] [place] [address] Basophils (Bld) [#/Vol] 0.06 x10*3/uL Normal 0.00-0.10 [facility] Comment on above: Performed By: #### 5 7021-8 ####AYDEE Bruce ([id number])[facility] ([facility])[address] [place] [address] Basophils/100 WBC (Bld) 0.3 % Normal 0.0-2.0 [facility] Comment on above: Performed By: #### 5 7021-8 ####AYDEE Bruce ([id number])[facility] ([facility])[address] [place] [address] Eosinophils (Bld) [#/Vol] 0.62 x10*3/uL Normal 0.00-0.70 [facility] Comment on above: Performed By: #### 5 7021-8 ####AYDEE Bruce ([id number])[facility] ([facility])[address] [place] [address] Eosinophils/100 WBC (Bld) 3.0 % Normal 0.0-6.0 [facility] Comment on above: Performed By: #### 5 7021-8 ####AYDEE Bruce ([id number])[facility] ([facility])[address] [place] [address]15[address] Erythrocyte distribution width (RBC) [Ratio] 18.6 % High 11.5-14.5 [facility] Comment on above: Performed By: #### 5 7021-8 ####AYDEE Bruce ([id number])[facility] ([facility])[address] [place] [address] Hematocrit (Bld) [Volume fraction] 21.9 % Low 36.0-46.0 [facility] Comment on above: Performed By: #### 5 7021-8 ####AYDEE Bruce ([id number])[facility] ([facility])[address] [place] [address] Hemoglobin (Bld) [Mass/Vol] 6.9 g/dL Low 12.0-16.0 [facility] Comment on above: Performed By: #### 5 7021-8 ####AYDEE Bruce ([id number])[facility] ([facility])[address] [place] [address]95[address] Immature granulocytes (Bld) [#/Vol] 0.51 x10*3/uL Normal 0.00-0.70 [facility] Comment on above: Performed By: #### 5 7021-8 ####AYDEE Bruce ([id number])[facility] ([facility])[address] [place] [address] Immature granulocytes/100 WBC (Bld) 2.5 % High 0.0-0.9 [facility] Comment on above: Result Comment: Doris ture Granulocyte Count (IG) includes promyelocytes, myelocytes and metamyelocytes but does not include bands. Percent differential counts (%) should be interpreted in the context of the absolute cell counts (cells/UL). Performed By: #### 5 7021-8 ####AYDEE Bruce ([id number])[facility] ([facility])[address] [place] [address] Lymphocytes (Bld) [#/Vol] 1.43 x10*3/uL Normal 1.20-4.80 [facility] Comment on above: Performed By: #### 5 7021-8 ####AYDEE Bruce ([id number])[facility] ([facility])[address] [place] [address] Lymphocytes/100 WBC (Bld) 6.9 % Normal 13.0-44.0 [facility] Comment on above: Performed By: #### 5 7021-8 ####AYDEE Bruce ([id number])[facility] ([facility])[address] [place] [address] MCH (RBC) [Entitic mass] 29.7 pg Normal 26.0-34.0 [facility] Comment on above: Performed By: #### 5 7021-8 ####AYDEE Bruce ([id number])[facility] ([facility])[address] [place] [address] MCHC (RBC) [Mass/Vol] 31.5 g/dL Low 32.0-36.0 [facility] Comment on above: Performed By: #### 5 7021-8 ####AYDEE Bruce ([id number])[facility] ([facility])[address] [place] [address] MCV (RBC) [Entitic vol] 94 fL Normal 80-100 [facility] Comment on above: Performed By: #### 5 7021-8 ####AYDEE Bruce ([id number])[facility] ([facility])[address] [place] [address] Monocytes (Bld) [#/Vol] 0.86 x10*3/uL Normal 0.10-1.00 [facility] Comment on above: Performed By: #### 5 7021-8 ####AYDEE Bruce ([id number])[facility] ([facility])[address] [place] [address] Monocytes/100 WBC (Bld) 4.1 % Normal 2.0-10.0 [facility] Comment on above: Performed By: #### 5 7021-8 ####AYDEE Bruce ([id number])[facility] ([facility])[address] [place] [address] Neutrophils (Bld) [#/Vol] 17.26 x10*3/uL High 1.20-7.70 [facility] Comment on above: Result Comment: Perc ent differential counts (%) should be interpreted in the context of the absolute cell counts (cells/uL). Performed By: #### 5 7021-8 ####AYDEE Bruce ([id number])[facility] ([facility])[address] [place] [address] Neutrophils/100 WBC (Bld) 83.2 % Normal 40.0-80.0 [facility] Comment on above: Performed By: #### 5 7021-8 ####AYDEE Bruce ([id number])[facility] ([facility])[address] [place] [address] Nucleated RBC/100 WBC (Bld) [Ratio] 0.0 /100 WBCs Normal 0.0-0.0 [facility] Comment on above: Performed By: #### 5 7021-8 ####AYDEE Bruce ([id number])[facility] ([facility])[address] [place] [address] Platelets (Bld) [#/Vol] 193 x10*3/uL Normal 150-450 [facility] Comment on above: Performed By: #### 5 7021-8 ####AYDEE Bruce ([id number])[facility] ([facility])[address] [place] [address] RBC (Bld) [#/Vol] 2.32 x10*6/uL Low 4.00-5.20 [facility] Comment on above: Performed By: #### 5 7021-8 ####AYDEE Bruce ([id number])[facility] ([facility])[address] [place] [address] WBC (Bld) [#/Vol] 20.7 x10*3/uL High 4.4-11.3 [facility] Comment on above: Performed By: #### 5 7021-8 ####AYDEE Bruce ([id number])[facility] ([facility])[address] [place] [address] Basophils (Bld) [#/Vol] 0.06 x10*3/uL Normal 0.00-0.10 [facility] Comment on above: Performed By: #### 5 7021-8 ####AYDEE Bruce (28976)[facility] ([facility])[address] [place] [address] Basophils/100 WBC (Bld) 0.3 % Normal 0.0-2.0 [facility] Comment on above: Performed By: #### 5 7021-8 ####AYDEE BAZZI L ([id number])[facility] ([facility])[address] [place] [address] Eosinophils (Bld) [#/Vol] 0.93 x10*3/uL High 0.00-0.70 [facility] Comment on above: Performed By: #### 5 7021-8 ####AYDEE Bruce ([id number])[facility] ([facility])[address] [place] [address] Eosinophils/100 WBC (Bld) 4.8 % Normal 0.0-6.0 [facility] Comment on above: Performed By: #### 5 7021-8 ####AYDEE Bruce ([id number])[facility] ([facility])[address] [place] [address] Erythrocyte distribution width (RBC) [Ratio] 18.6 % High 11.5-14.5 [facility] Comment on above: Performed By: #### 5 7021-8 ####ADYEE Bruce ([id number])[facility] ([facility])[address] [place] [address] Hematocrit (Bld) [Volume fraction] 23.1 % Low 36.0-46.0 [facility] Comment on above: Performed By: #### 5 7021-8 ####AYDEE Bruce ([id number])[facility] ([facility])[address] [place] [address] Hemoglobin (Bld) [Mass/Vol] 7.1 g/dL Low 12.0-16.0 [facility] Comment on above: Performed By: #### 5 7021-8 ####AYDEE Bruce ([id number])[facility] ([facility])[address] [place] [address]903 Immature granulocytes (Bld) [#/Vol] 0.24 x10*3/uL Normal 0.00-0.70 [facility] Comment on above: Performed By: #### 5 7021-8 ####AYDEE CAMILOMOTZLILIANA L ([id number])[facility] ([facility])[address] [place] [address] Immature granulocytes/100 WBC (Bld) 1.2 % High 0.0-0.9 [facility] Comment on above: Result Comment: Doris ture Granulocyte Count (IG) includes promyelocytes, myelocytes and metamyelocytes but does not include bands. Percent differential counts (%) should be interpreted in the context of the absolute cell counts (cells/UL). Performed By: #### 5 7021-8 ####AYDEE Bruce ([id number])[facility] ([facility])[address] [place] [address] Lymphocytes (Bld) [#/Vol] 2.21 x10*3/uL Normal 1.20-4.80 [facility] Comment on above: Performed By: #### 5 7021-8 ####AYDEE Bruce ([id number])[facility] ([facility])[id number] [place] [address] 20690 Lymphocytes/100 WBC (Bld) 11.5 % Normal 13.0-44.0 [facility] Comment on above: Performed By: #### 5 7021-8 ####AYDEE Bruce (85215)[facility] ([facility])[address] [place] [address]29 MCH (RBC) [Entitic mass] 29.5 pg Normal 26.0-34.0 [facility] Comment on above: Performed By: #### 5 7021-8 ####AYDEE Bruce ([id number])[facility] ([facility])[address] [place] [address] 90327 MCHC (RBC) [Mass/Vol] 30.7 g/dL Low 32.0-36.0 [facility] Comment on above: Performed By: #### 5 7021-8 ####AYDEE Bruce ([id number])[facility] ([facility])[address] [place] [address] 25815 MCV (RBC) [Entitic vol] 96 fL Normal 80-100 [facility] Comment on above: Performed By: #### 5 7021-8 ####AYDEE Bruce ([id number])[facility] ([facility])[address] [place] [address] Monocytes (Bld) [#/Vol] 1.13 x10*3/uL High 0.10-1.00 [facility] Comment on above: Performed By: #### 5 7021-8 ####AYDEE Bruce ([id number])[facility] ([facility])[address] [place] [address] Monocytes/100 WBC (Bld) 5.9 % Normal 2.0-10.0 [facility] Comment on above: Performed By: #### 5 7021-8 ####AYDEE BAZZI L ([id number])[facility] ([facility])[address] [place] [address] Neutrophils (Bld) [#/Vol] 14.71 x10*3/uL High 1.20-7.70 [facility] Comment on above: Result Comment: Perc ent differential counts (%) should be interpreted in the context of the absolute cell counts (cells/uL). Performed By: #### 5 7021-8 ####AYDEE Bruce ([id number])[facility] ([facility])[address] [place] [address] Neutrophils/100 WBC (Bld) 76.3 % Normal 40.0-80.0 [facility] Comment on above: Performed By: #### 5 7021-8 ####AYDEE Bruce ([id number])[facility] ([facility])[address] [place] [address] Nucleated RBC/100 WBC (Bld) [Ratio] 0.0 /100 WBCs Normal 0.0-0.0 [facility] Comment on above: Performed By: #### 5 7021-8 ####AYDEE BAZZI L ([id number])[facility] ([facility])[address] [place] [address] Platelets (Bld) [#/Vol] 209 x10*3/uL Normal 150-450 [facility] Comment on above: Performed By: #### 5 7021-8 ####AYDEE BAZZI L ([id number])[facility] ([facility])[address] [place] [address] RBC (Bld) [#/Vol] 2.41 x10*6/uL Low 4.00-5.20 [facility] Comment on above: Performed By: #### 5 7021-8 ####AYDEE Bruce ([id number])[facility] ([facility])[address] [place] [address] WBC (Bld) [#/Vol] 19.3 x10*3/uL High 4.4-11.3 [facility] Comment on above: Performed By: #### 5 7021-8 ####AYDEE Bruce ([id number])[facility] ([facility])[address] [place] [address] Glucose Test strip manual (B ld) [Mass/Vol]on 10-05-2024 Glucose [Mass/Vol] 115 mg/dL High [address] [place] [address] Comment on above: Performed By: #### 2 341-6 ####AYDEE Bruce ([id number])[facility] ([facility])[address] [place] [address] Glucose [Mass/Vol] 125 mg/dL High [address] [place] [address] Comment on above: Performed By: #### 2 341-6 ####AYDEE Bruce ([id number])[facility] ([facility])[address] [place] [address] Glucose [Mass/Vol] 102 mg/dL High [address] [place] [address] Comment on above: Performed By: #### 2 341-6 ####AYDEE Bruce (68645)[facility] ([facility])[address] [place] [address] Glucose [Mass/Vol] 116 mg/dL High [address] [place] [address] Comment on above: Performed By: #### 2 341-6 ####AYDEE Bruce ([id number])[facility] ([facility])[address] [place] [address] Glucose [Mass/Vol] 129 mg/dL High [address] [place] [address] Comment on above: Performed By: #### 2 341-6 ####AYDEE Bruce (45497)[facility] ([facility])[address] [place] [address] Heparin.unfractionatedon Heparin unfractionated Chromogenic method Qn (PPP) 0.6 IU/mL Normal See Comment Below for Therapeutic Ranges [facility] Comment on above: Order Comment: Obtai [...] please refer to local Pharmacy and the [facility] Guidelines for Anticoagulation Therapy available on the [facility] intranet at: [email or web address] Performed By: #### 3 274-8 ####AYDEE Bruce ([id number])[facility] ([facility])[address] [place] [address] Hepatic function 2000 panelo n 10-05-2024 Albumin BCP dye [Mass/Vol] 2.8 g/dL Low 3.4-5.0 [facility] Comment on above: Performed By: #### 2 4325-3 ####AYDEE Bruce ([id number])[facility] ([facility])[address] [place] [address] ALP [Catalytic activity/Vol] 258 U/L High 33-136 [facility] Comment on above: Performed By: #### 2 4325-3 ####AYDEE Bruce ([id number])[facility] ([facility])[address] [place] [address] ALT With P-5'-P [Catalytic activity/Vol] 41 U/L Normal 7-45 [facility] Comment on above: Result Comment: Susan ents treated with Sulfasalazine may generate falsely decreased results for ALT. Performed By: #### 2 4325-3 ####AYDEE Bruce ([id number])[facility] ([facility])[address] [place] [address] AST With P-5'-P [Catalytic activity/Vol] 69 U/L High 9-39 [facility] Comment on above: Performed By: #### 2 4325-3 ####AYDEE Bruce ([id number])[facility] ([facility])[id number] [place] [address] Bilirubin [Mass/Vol] 1.9 mg/dL High 0.0-1.2 [facility] Comment on above: Performed By: #### 2 4325-3 ####AYDEE Bruce ([id number])[facility] ([facility])[address] [place] [address] Bilirubin.direct [Mass/Vol] 0.6 mg/dL High 0.0-0.3 [facility] Comment on above: Performed By: #### 2 4325-3 ####AYDEE Bruce ([id number])[facility] ([facility])[address] [place] [address] Protein [Mass/Vol] 4.9 g/dL Low 6.4-8.2 [facility] Comment on above: Performed By: #### 2 4325-3 ####AYDEE Bruce ([id number])[facility] ([facility])[address] [place] [address] Magnesiumon 10-05-2024 Magnesium [Mass/Vol] 2.41 mg/dL High 1.60-2.40 [facility] Comment on above: Performed By: #### 1 9123-9 ####AYDEE Bruce ([id number])[facility] ([facility])[address] [place] [address] PT and aPTT panel Coag (PPP) on 10-05-2024 aPTT Coag (PPP) [Time] 75 s High 26-36 [facility] Comment on above: Order Comment: The A PTT is no longer used for monitoring Unfractionated Heparin Therapy. For monitoring Heparin Therapy, use the Heparin Assay. Performed By: #### 3 4529-8 ####AYDEE Bruce ([id number])[facility] ([facility])[address] [place] [address] INR Coag (PPP) [Relative time] 1.0 Normal 0.9-1.1 [facility] Comment on above: Order Comment: The A PTT is no longer used for monitoring Unfractionated Heparin Therapy. For monitoring Heparin Therapy, use the Heparin Assay. Performed By: #### 3 4529-8 ####AYDEE Bruce ([id number])[facility] ([facility])[id number] [place] [id number] PT Coag (PPP) [Time] 10.8 s Normal 9.8-12.4 [facility] Comment on above: Order Comment: The A PTT is no longer used for monitoring Unfractionated Heparin Therapy. For monitoring Heparin Therapy, use the Heparin Assay. Performed By: #### 3 4529-8 ####AYDEE Bruce ([id number])[facility] ([facility])[address] [place] [address] Phosphateon 10-05-2024 Phosphate [Mass/Vol] 3.5 mg/dL Normal 2.5-4.9 [facility] Comment on above: Performed By: #### 2 777-1 ####AYDEE Bruce ([id number])[facility] ([facility])[address] [place] [address] 36097 Coagulation surface inducedo n 10-04-2024 aPTT Coag (PPP) [Time] 50 s High 26-36 [facility] Comment on above: Order Comment: When two (2) consecutive Activated Partial Thromboplastin Times results obtained 2 hours apart are therapeutic, obtain STAT Activated Partial Thromboplastin Time every a.m. Nursing to release order.The APTT is no longer used for monitoring Unfractionated Heparin Therapy. For monitoring Heparin Therapy, use the Heparin Assay. Performed By: #### 1 4979-9 ####AYDEE Bruce ([id number])[facility] ([facility])[id number] [place] [address] Glucose Test strip manual (B ld) [Mass/Vol]on 10-04-2024 Glucose [Mass/Vol] 114 mg/dL High 74-99 [facility] Comment on above: Performed By: #### 2 341-6 ####AYDEE Bruce ([id number])[facility] ([facility])[address] [place] [address] Glucose [Mass/Vol] 114 mg/dL High 74-99 [facility] Comment on above: Performed By: #### 2 341-6 ####AYDEE Bruce ([id number])[facility] ([facility])[address] [place] [address] Heparin.unfractionatedon Heparin unfractionated Chromogenic method Qn (PPP) 0.5 IU/mL Normal See Comment Below for Therapeutic Ranges [facility] Comment on above: Order Comment: Obtai [...] please refer to local Pharmacy and the [facility] Guidelines for Anticoagulation Therapy available on the [facility] intranet at: [email or web address] Performed By: #### 3 274-8 ####AYDEE Bruce ([id number])[facility] ([facility])[address] [place] [address] Heparin unfractionated Chromogenic method Qn (PPP) 0.2 IU/mL Normal See Comment Below for Therapeutic Ranges [facility] Comment on above: Order Comment: Obtai [...] please refer to local Pharmacy and the [facility] Guidelines for Anticoagulation Therapy available on the [facility] intranet at: [email or web address] Performed By: #### 3 274-8 ####AYDEE Bruce ([id number])[facility] ([facility])[address] [place] [address] ECG 12-LEADon 09-27-2024 ECG 12-LEAD Ventricular Rate 46 Atrial Rate 46 P-R Interval 160 QRS Duration 108 Q-T Interval 464 QTC Calculation(Bazett) 406 P [place] -4 R [place] 48 T [place] 87 QRS Count 8 Q Onset 215 P Onset 135 P Offset 186 T Offset 447 QTC Fredericia 424 Diagnosis Marked sinus bradycardia 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 rate has decreased BY 29 BPM Serial changes of evolving Anteroseptal infarct Present Confirmed by Albert Costa ([id number]) on 09/28/2024 3:24:11 PM Normal [facility] ECG 12-LEAD Ventricular Rate 75 Atrial Rate 75 P-R Interval 158 QRS Duration 96 Q-T Interval 376 QTC Calculation(Bazett) 419 P [place] 70 R [place] 65 T [place] 73 QRS Count 13 Q Onset 215 [...] Hernandez ([id number]) on 09/28/2024 2:23:09 PM Normal [facility] ECG 12-LEAD Ventricular Rate 95 Atrial Rate 95 P-R Interval 150 QRS Duration 90 Q-T Interval 340 QTC Calculation(Bazett) 427 P [place] 76 R [place] 57 T [place] 73 QRS Count 15 Q Onset 215 P Onset 140 P Offset 183 T Offset 385 QTC Fredericia 396 Diagnosis Normal sinus rhythm Possible Left atrial enlargement Anterior infarct , age undetermined Abnormal ECG Confirmed by Thal Albert ([id number]) on 09/30/2024 1:18:23 PM Normal [facility] ECG 12-LEAD Ventricular Rate 101 Atrial Rate 101 P-R Interval 146 QRS Duration 88 Q-T Interval 326 QTC Calculation(Bazett) 422 P [place] 66 R [place] 63 T [place] 76 QRS Count 17 Q Onset 215 P Onset 142 P Offset 183 T Offset 378 QTC Fredericia 387 Diagnosis Sinus tachycardia with Premature atrial complexes Anterior infarct , age undetermined Abnormal ECG Confirmed by Thal Albert ([id number]) on 09/30/2024 1:18:21 PM Normal [facility] ECG 12-LEAD Ventricular Rate 104 Atrial Rate 104 P-R Interval 152 QRS Duration 84 Q-T Interval 310 QTC Calculation(Bazett) 407 P [place] 81 R [place] 63 T [place] 74 QRS Count 17 Q Onset 214 P Onset 138 P Offset 186 T Offset 369 QTC Fredericia 372 Diagnosis Sinus tachycardia Biatrial enlargement Anterior infarct (cited on or before 26-SEP-2024) ACUTE [place] / STEMI Abnormal ECG When compared with ECG of 26-SEP-2024 18:04, Serial changes of evolving Anterior infarct Present Confirmed by Thal Albert ([id number]) on 09/30/2024 1:18:14 PM Normal [facility] ECG 12-LEADon 09-26-2024 ECG 12-LEAD Ventricular Rate 87 Atrial Rate 87 P-R Interval 146 QRS Duration 86 Q-T Interval 344 QTC Calculation(Bazett) 413 P [place] 74 R [place] 56 T [place] 66 QRS Count 14 Q Onset 216 P Onset 143 P Offset 187 T Offset 388 QTC Fredericia 389 Diagnosis Normal sinus rhythm Normal ECG When compared with ECG of 26-SEP-2024 19:22, QRS axis Shifted left ST no longer depressed in Lateral leads Confirmed by Thal Albert ([id number]) on 09/30/2024 1:18:04 PM Normal [facility] ECG 12-LEAD Ventricular Rate 101 Atrial Rate 101 P-R Interval 150 QRS Duration 86 Q-T Interval 334 QTC Calculation(Bazett) 433 P [place] 83 R [place] 66 T [place] 74 QRS Count 16 Q Onset 213 P Onset 138 P Offset 187 T Offset 380 QTC Fredericia 397 Diagnosis Sinus tachycardia Possible Left atrial enlargement Possible Anterior infarct , age undetermined Abnormal ECG No previous ECGs available Confirmed by Thal Albert ([id number]) on 09/30/2024 1:17:53 PM Normal [facility] ECG 12-LEADon 09-25-2024 ECG 12-LEAD Ventricular Rate 88 Atrial Rate 294 QRS Duration 104 Q-T Interval 340 QTC Calculation(Bazett) 411 P [place] 83 R [place] 64 T [place] 74 QRS Count 15 Q Onset 212 T Offset 382 QTC Fredericia 386 Diagnosis Atrial flutter with variable AV block Anterior infarct (cited on or before 11-SEP-2024) Abnormal ECG When compared with ECG of 23-SEP-2024 08:35, Atrial flutter has replaced Ectopic atrial rhythm ST elevation now present in Anterior leads Confirmed by Khang Luevano ([id number]) on 10/02/2024 5:33:47 AM Normal [facility] ECG 12-LEADon 09-23-2024 ECG 12-LEAD Ventricular Rate 73 Atrial Rate 73 P-R Interval 160 QRS Duration 84 Q-T Interval 404 QTC Calculation(Bazett) 445 P [place] -36 R [place] 71 T [place] 57 QRS Count 12 Q Onset 215 P Onset 135 P Offset 187 T Offset 417 QTC Fredericia 431 Diagnosis Unusual P axis, possible ectopic atrial rhythm Low voltage QRS Cannot rule out 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) Abnormal ECG When compared with ECG of 23-SEP-2024 04:29, Serial changes of Anteroseptal infarct Present Confirmed by Khang Luevano ([id number]) on 09/23/2024 5:35:18 PM Normal [facility] ECG 12-LEAD Ventricular Rate 64 Atrial Rate 64 P-R Interval 170 QRS Duration 102 Q-T Interval 424 QTC Calculation(Bazett) 437 P [place] -35 R [place] 72 T [place] 61 QRS Count 10 Q Onset 214 P Onset 129 P Offset 181 T Offset 426 QTC Fredericia 433 Diagnosis Unusual P axis, possible ectopic atrial rhythm Low voltage QRS Cannot rule out 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) Abnormal ECG When compared with ECG of 23-SEP-2024 02:06, No significant change was found Confirmed by Khang Luevano ([id number]) on 09/23/2024 9:40:25 AM Normal [facility] ECG 12-LEAD Ventricular Rate 57 Atrial Rate 57 P-R Interval 172 QRS Duration 102 Q-T Interval 438 QTC Calculation(Bazett) 426 P [place] -30 R [place] 71 T [place] 63 QRS Count 9 Q Onset 215 P Onset 129 P Offset 180 T Offset 434 QTC Fredericia 430 Diagnosis Unusual P axis, possible ectopic atrial bradycardia Low voltage QRS Cannot rule out 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) Abnormal ECG When compared with ECG of 23-SEP-2024 00:03, Ectopic atrial rhythm has replaced Sinus rhythm Confirmed by Khnag Luevano ([id number]) on 09/23/2024 9:41:34 AM Normal [facility] ECG 12-LEAD Ventricular Rate 62 Atrial Rate 62 P-R Interval 170 QRS Duration 104 Q-T Interval 420 QTC Calculation(Bazett) 426 R [place] 68 T [place] 59 QRS Count 10 Q Onset 214 [...] Luevano ([id number]) on 09/23/2024 9:41:41 AM Normal [facility] ACT Coag (Bld)on 09-16-2024 Interpretation and review of laboratory results Abnormal [facility] Interpretation and review of laboratory results Abnormal [facility] Interpretation and review of laboratory results Abnormal [facility] Interpretation and review of laboratory results Abnormal [facility] ACTIVATED CLOTTING TIME HIGH on 09-16-2024 ACT Coag (Bld) 214 s [facility] Comment on above: Target ACT range danelle l vary based on the patient population, clinical status, and surgical intervention occurring. ACT Coag (Bld) 362 s [facility] Comment on above: Target ACT range danelle l vary based on the patient population, clinical status, and surgical intervention occurring. ACT Coag (Bld) 206 s [facility] Comment on above: Target ACT range danelle l vary based on the patient population, clinical status, and surgical intervention occurring. ACT Coag (Bld) 307 s High [facility] Comment on above: Target ACT range danelle l vary based on the patient population, clinical status, and surgical intervention occurring. Gas and Carbon monoxide and Electrolytes panel (BldA)on 09-16-2024 Anion gap 4 (BldA) [Moles/Vol] 15 [facility] Base excess Calc (Bld) [Moles/Vol] -3.2000 mmol/L Low -2.0 - 3.0 mmol/L [facility] Calcium.ionized (BldA) [Moles/Vol] 1.07 mmol/L Low 1.10 - 1.33 mmol/L [facility] Chloride (BldA) [Moles/Vol] 98 mmol/L 98 - 107 mmol/L [facility] CO2 (Bld) [Partial pressure] 32 mm[Hg] Low [facility] Glucose [Mass/Vol] 185 mg/dL High 74 - 99 mg/dL [facility] HCO3 (Bld) [Moles/Vol] 20.8 mmol/L Low 22.0 - 26.0 mmol/L [facility] Hematocrit Est (Bld) [Volume fraction] 26 % Low 36.0 - 46.0 % [facility] Hemoglobin (Bld) [Mass/Vol] 8.7 g/dL Low 12.0 - 16.0 g/dL [facility] Interpretation and review of laboratory results Abnormal [facility] Lactate (BldA) [Moles/Vol] 1 mmol/L 0.4 - 2.0 mmol/L [facility] Oxygen (Bld) [Partial pressure] 82 mm[Hg] Low [facility] Oxyhemoglobin (BldA) [Mass fraction] 95.9 % 94.0 - 98.0 % [facility] pH (Bld) 7.42 [pH] 7.38 - 7.42 pH [facility] Potassium (BldA) [Moles/Vol] 5.1 mmol/L 3.5 - 5.3 mmol/L [facility] Sodium (BldA) [Moles/Vol] 129 mmol/L Low 136 - 145 mmol/L [facility] ECG 12-LEADon 09-13-2024 ECG 12-LEAD Ventricular Rate 135 Atrial Rate 250 QRS Duration 90 Q-T Interval 304 QTC Calculation(Bazett) 456 R [place] 77 T [place] 76 QRS Count 22 Q Onset 216 T Offset 368 QTC Fredericia 398 Diagnosis Atrial fibrillation with rapid ventricular response Low voltage QRS 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) ACUTE [place] / STEMI Abnormal ECG When compared with ECG of 13-SEP-2024 03:41, No significant change was found Confirmed by Albert Costa ([id number]) on 09/15/2024 11:23:45 AM Normal [facility] ABS (Gel)on 09-11-2024 ABSC Interp (Gel) Negative [facility] Comment on above: Performed By: #### A SHAWANDA ABOGEL #### [place] [address] Performed By: #### A MICK SANONGEL #### [place] [address] ECG 12-LEADon 09-11-2024 ECG 12-LEAD Ventricular Rate 72 Atrial Rate 72 P-R Interval 172 QRS Duration 122 Q-T Interval 460 QTC Calculation(Bazett) 503 P [place] -27 R [place] 52 T [place] 100 QRS Count 12 Q Onset 218 P Onset 132 P Offset 192 T Offset 448 QTC Fredericia 489 Diagnosis Normal sinus rhythm Anteroseptal infarct , age undetermined Abnormal ECG No previous ECGs available Confirmed by Albert Costa ([id number]) on 09/16/2024 1:24:34 PM Normal [facility] RBC (Product)on 09-11-2024 RBC Product Ready RBC Ready for Pickup [facility] Comment on above: Performed By: #### R BCP #### [place] [address] Performed By: #### H BSAG, HBSAB #### [place] [address] RBC Product Ready RBC Ready for Pickup [facility] Comment on above: Performed By: #### R BCP #### [place] [address] .Auto Diffon 09-10-2024 Basophil, Absolute 0.0 10 3/mcL Normal 0.0-0.3 [facility] Comment on above: Performed By: #### A BSGEL, ABOGEL #### [place] [address] Performed By: #### H BSAG, HBSAB #### [place] [address] Basophils/100 WBC (Bld) 0.3 % Normal 0.0-2.5 [facility] Comment on above: Performed By: #### A BSGEL, ABOGEL #### [place] [address] Performed By: #### H BSAG, HBSAB #### [place] [address] Eosinophil, Absolute 0.0 10 3/mcL Normal 0.0-0.7 [facility] Comment on above: Performed By: #### A BSGEL, ABOGEL #### [place] [address] Performed By: #### H BSAG, HBSAB #### [place] [address] Eosinophils/100 WBC (Bld) 0.2 % Normal 0.0-6.0 [facility] Comment on above: Performed By: #### A BSGEL, ABOGEL #### [place] [address] Performed By: #### H BSAG, HBSAB #### [place] [address] Lymphocyte, Absolute 1.6 10 3/mcL Normal 0.9-4.3 [facility] Comment on above: Performed By: #### A BSGEL, ABOGEL #### [place] [address] Performed By: #### H BSAG, HBSAB #### [place] [address] Lymphocytes/100 WBC (Bld) 14.0 % Low 20.0-40.0 [facility] Comment on above: Performed By: #### A BSGEL, ABOGEL #### [place] [address] Performed By: #### H BSAG, HBSAB #### [place] [address] Monocyte, Absolute 0.2 10 3/mcL Normal 0.1-1.4 [facility] Comment on above: Performed By: #### A BSGEL, ABOGEL #### [place] [address] Performed By: #### H BSAG, HBSAB #### [place] [address] Monocytes/100 WBC (Bld) 1.7 % Low 2.0-13.0 [facility] Comment on above: Performed By: #### A BSGEL, ABOGEL #### [place] [address] Performed By: #### H BSAG, HBSAB #### [place] [address] Neutrophils/100 WBC (Bld) 83.8 % High 50.0-75.0 [facility] Comment on above: Performed By: #### A BSGEL, ABOGEL #### [place] [address] Performed By: #### H BSAG, HBSAB #### [place] [address] Basophil, Absolute 0.0 10 3/mcL Normal 0.0-0.3 [facility] Comment on above: Performed By: #### A BSGEL, ABOGEL #### [place] [address] Performed By: #### A BOGSHALINI ABSGEL #### [place] [address] Basophils/100 WBC (Bld) 0.3 % Normal 0.0-2.5 [facility] Comment on above: Performed By: #### A BSGEL, ABOGEL #### [place] [address] Performed By: #### A CHUCK SANON #### [place] [address] Eosinophil, Absolute 0.1 10 3/mcL Normal 0.0-0.7 [facility] Comment on above: Performed By: #### A SHAWANDA ABOGEL #### [place] [address] Performed By: #### A TALITA ABSGEL #### [place] [address] Eosinophils/100 WBC (Bld) 0.4 % Normal 0.0-6.0 [facility] Comment on above: Performed By: #### A SHAWANDA ABOGEL #### [place] [address] Performed By: #### A CHUCK SANON #### [place] [address] Lymphocyte, Absolute 2.2 10 3/mcL Normal 0.9-4.3 [facility] Comment on above: Performed By: #### A SHAWANDA ABOGEL #### [place] [address] Performed By: #### A CHUCK SANON #### [place] [address] Lymphocytes/100 WBC (Bld) 15.1 % Low 20.0-40.0 [facility] Comment on above: Performed By: #### A SHAWANDA ABOGEL #### [place] [address] Performed By: #### A TALITA ABSGEL #### [place] [address] Monocyte, Absolute 0.4 10 3/mcL Normal 0.1-1.4 [facility] Comment on above: Performed By: #### A SHAWANDA ABOGEL #### [place] [address] Performed By: #### A TALITA ABSGEL #### [place] [address] Monocytes/100 WBC (Bld) 2.9 % Normal 2.0-13.0 [facility] Comment on above: Performed By: #### A LANDRY MAYBERRY #### [place] [address] Performed By: #### A CHUCK SANON #### [place] [address] Neutrophils/100 WBC (Bld) 81.3 % High 50.0-75.0 [facility] Comment on above: Performed By: #### A CHAPARRITA MAYBERRYGEL #### [place] [address] Performed By: #### A CHUCK SANON #### [place] [address] .GFRon 09-10-2024 Estimated Glomerular Filtration Rate 46 ml/min/1.73sqm [facility] Comment on above: Result Comment: Stages [...] By: #### G FR, MG, CMP #### [place] [address] Performed By: #### B FPR, GLUBF, BFCT, PROBF #### [place] [address] Estimated Glomerular Filtration Rate 49 ml/min/1.73sqm [facility] Comment on above: Result Comment: Stages [...] Performed By: #### A BSGEL, ABOGEL #### [place] [address] Performed By: #### A TALITA ABSGEL #### [place] [address] .NEUABSon 09-10-2024 Neutrophil, Absolute 9.9 10 3/mcL High 2.3-8.1 [facility] Comment on above: Performed By: #### A BSGEL, ABOGEL #### [place] [address] Performed By: #### H BSAG, HBSAB #### [place] [address] Neutrophil, Absolute 11.5 10 3/mcL High 2.3-8.1 [facility] Comment on above: Performed By: #### A BSGEL, ABOGEL #### [place] [address] Performed By: #### A TALITA, ABSGEL #### [place] [address] ABO/Rh (Gel)on 09-10-2024 ABO/Rh Interp Positive Invalid Interpretation Code [facility] Comment on above: Performed By: #### A BSGEL, ABOGEL #### [place] [address] Performed By: #### A TALITA ABSGEL #### [place] [address] APTTon 09-10-2024 aPTT Coag (Bld) [Time] s Critically abnormal 25.0-35.0 [facility] Comment on above: Result Comment: Spec imen hemolyzed. Results may be affected. For Heparin anticoagulation therapy, the recommended therapeutic range is: 54-77 seconds (APTT Correlation with Anti-Xa therapeutic range of 0.3-0.7 units/ml). PLEASE REFERENCE THE PHARMACY PROTOCOL FOR DOSING. Performed By: #### A LANDRY MAYBERRY #### [place] [address] Performed By: #### A CHUCK SANON #### [place] [address] BGon 09-10-2024 Base excess Calc (Bld) [Moles/Vol] -5.7000 mmol/L Normal [facility] Comment on above: Performed By: #### A SHAWANDA ABOGEL #### [place] [address] Performed By: #### H BSAMaxx, HBSAB #### [place] [address] CO2 [Moles/Vol] 17.1 mmol/L Low 22.0-30.0 [facility] Comment on above: Performed By: #### A SHAWANDA ABOGEL #### [place] [address] Performed By: #### H BSAMaxx, HBSAB #### [place] [address] HCO3 (Bld) [Moles/Vol] 16.4 mmol/L Low 21.0-29.0 [facility] Comment on above: Performed By: #### A SHAWANDA ABOGEL #### [place] [address] Performed By: #### H BSAMaxx, HBSAB #### [place] [address] Oxygen (Bld) [Partial pressure] 338.7 mm[Hg] High 74.0-108.0 [facility] Comment on above: Performed By: #### A SHAWANDA ABOGEL #### [place] [address] Performed By: #### H BSAG, HBSAB #### [place] [address] Oxygen saturation in Blood 99.2 % High 92.0-96.0 [facility] Comment on above: Performed By: #### A SHAWANDA ABOGEL #### [place] [address] Performed By: #### H BSAMaxx, HBSAB #### [place] [address] pCO2 22.9 mmHg Low 32.0-46.0 [facility] Comment on above: Performed By: #### A SHAWANDA ABOGEL #### [place] [address] Performed By: #### H BSAMaxx, HBSAB #### [place] [address] pH (Bld) 7.472 [pH] High 7.380-7.460 [facility] Comment on above: Performed By: #### A SHAWANDA ABOGEL #### [place] [address] Performed By: #### H BSAMaxx, HBSAB #### [place] [address] Base excess Calc (Bld) [Moles/Vol] -5.6000 mmol/L Normal [facility] Comment on above: Performed By: #### B G #### [place] [address] Performed By: #### T VINITA #### [place] [address] CO2 [Moles/Vol] 28.2 mmol/L Normal 22.0-30.0 [facility] Comment on above: Performed By: #### B G #### [place] [address] Performed By: #### T VINITA #### [place] [address] HCO3 (Bld) [Moles/Vol] 25.8 mmol/L Normal 21.0-29.0 [facility] Comment on above: Performed By: #### B G #### [place] [address] Performed By: #### T VINITA #### [place] [address] Oxygen (Bld) [Partial pressure] 38.4 mm[Hg] Critically abnormal 74.0-108.0 [facility] Comment on above: Performed By: #### B G #### [place] [address] Performed By: #### T RANDALL #### [place] [address] Oxygen saturation in Blood 63.4 % Low 92.0-96.0 [facility] Comment on above: Performed By: #### B G #### [place] [address] Performed By: #### T VINITA #### [place] [address] pCO2 77.5 mmHg Critically abnormal 32.0-46.0 [facility] Comment on above: Performed By: #### B G #### [place] [address] Performed By: #### T RANDALL #### [place] [address] pH (Bld) 7.141 [pH] Critically abnormal 7.380-7.460 [facility] Comment on above: Performed By: #### B G #### [place] [address] Performed By: #### T RANDALL #### [place] [address] Base excess Calc (Bld) [Moles/Vol] -10.91375 mmol/L Normal [facility] Comment on above: Performed By: #### A BSGEL, ABOGEL #### [place] [address] Performed By: #### H BSAG, HBSAB #### [place] [address] CO2 [Moles/Vol] 24.7 mmol/L Normal 22.0-30.0 [facility] Comment on above: Performed By: #### A BSGEL, ABOGEL #### [place] [address] Performed By: #### H BSAG, HBSAB #### [place] [address] HCO3 (Bld) [Moles/Vol] 22.2 mmol/L Normal 21.0-29.0 [facility] Comment on above: Performed By: #### A BSMARJAN, ABOGEL #### [place] [address] Performed By: #### H BSAG, HBSAB #### [place] [address] Oxygen (Bld) [Partial pressure] 47.6 mm[Hg] Critically abnormal 74.0-108.0 [facility] Comment on above: Performed By: #### A BSMARJAN ABOGEL #### [place] [address] Performed By: #### H BSAG, HBSAB #### [place] [address] Oxygen saturation in Blood 70.7 % Low 92.0-96.0 [facility] Comment on above: Performed By: #### A BSMARJAN ABOGEL #### [place] [address] Performed By: #### H BSAG, HBSAB #### [place] [address] pCO2 80.8 mmHg Critically abnormal 32.0-46.0 [facility] Comment on above: Performed By: #### A BSMARJAN ABOGEL #### [place] [address] Performed By: #### H BSAG, HBSAB #### [place] [address] pH (Bld) 7.057 [pH] Critically abnormal 7.380-7.460 [facility] Comment on above: Result Comment: call ed [facility] - patient no longer there - was told they are in [employer] - 09/10/2024 19:47:43 EDT Performed By: #### A BSMARJAN ABOGEL #### [place] [address] Performed By: #### H BSAG, HBSAB #### [place] [place] [address] CAIONon 09-10-2024 Calcium Ionized 1.08 mmol/L Low 1.12-1.32 [facility] Comment on above: Order Comment: speci men does not meet 80% minimum fill spoke to VIVIAN Vale 09/10/2024 21:38:07 EDT SAS Performed By: #### A BSMARJAN ABOGEL #### [place] [address] Performed By: #### H BSAG, HBSAB #### [place] [address] CBCon 09-10-2024 Erythrocyte distribution width (RBC) [Ratio] 13.5 % Normal 11.5-15.5 [facility] Comment on above: Performed By: #### A BSGEL, ABOGEL #### [place] [address] Performed By: #### H BSAG, HBSAB #### [place] [address] Hematocrit (Bld) [Volume fraction] 51.3 % High 34.0-46.0 [facility] Comment on above: Performed By: #### A BSGEL, ABOGEL #### [place] [address] Performed By: #### H BSAG, HBSAB #### [place] [address] Hgb 17.0 G/dL High 12.0-16.0 [facility] Comment on above: Performed By: #### A BSGEL, ABOGEL #### [place] [address] Performed By: #### H BSAG, HBSAB #### [place] [address] MCH (RBC) [Entitic mass] 29.7 pg Normal 27.0-33.0 [facility] Comment on above: Performed By: #### A BSGEL, ABOGEL #### [place] [address] Performed By: #### H BSAG, HBSAB #### [place] [address] MCHC 33.1 G/dL Normal 32.0-36.0 [facility] Comment on above: Performed By: #### A BSGEL, ABOGEL #### [place] [address] Performed By: #### H BSAG, HBSAB #### [place] [address] MCV (RBC) [Entitic vol] 89.8 fL Normal 80.0-99.0 [facility] Comment on above: Performed By: #### A BSMARJAN, ABOGEL #### [place] [address] Performed By: #### H BSAMaxx, HBSAB #### [place] [address] Platelet 324 10 3/mcL Normal 150-450 [facility] Comment on above: Performed By: #### A BSGEL, ABOGEL #### [place] [address] Performed By: #### H BSAMaxx, HBSAB #### [place] [address] Platelet mean volume (Bld) [Entitic vol] 8.4 fL Normal 6.6-10.5 [facility] Comment on above: Performed By: #### A BSMARJAN, ABOGEL #### [place] [address] Performed By: #### H BSAG, HBSAB #### [place] [address] RBC 5.71 10 6/mcL High 4.10-5.30 [facility] Comment on above: Performed By: #### A BSGEL, ABOGEL #### [place] [address] Performed By: #### H BSAG, HBSAB #### [place] [address] WBC 11.8 10 3/mcL High 4.5-10.8 [facility] Comment on above: Performed By: #### A LANDRY MAYBERRY #### [place] [address] Performed By: #### H BSAG, HBSAB #### [place] [address] Erythrocyte distribution width (RBC) [Ratio] 13.6 % Normal 11.5-15.5 [facility] Comment on above: Performed By: #### A SHAWANDA ABOGEL #### [place] [address] Performed By: #### A CHUCK SANON #### [place] [address] Hematocrit (Bld) [Volume fraction] 50.0 % High 34.0-46.0 [facility] Comment on above: Performed By: #### A SHAWANDA ABOMARJAN #### [place] [address] Performed By: #### A CHUCK SANON #### [place] [address] Hgb 16.8 G/dL High 12.0-16.0 [facility] Comment on above: Performed By: #### A SHAWANDA ABOMARJAN #### [place] [address] Performed By: #### A CHUCK SANON #### [place] [address] MCH (RBC) [Entitic mass] 30.1 pg Normal 27.0-33.0 [facility] Comment on above: Performed By: #### A SHAWANDA ABOMARJAN #### [place] [address] Performed By: #### A CHUCK SANON #### [place] [address] MCHC 33.5 G/dL Normal 32.0-36.0 [facility] Comment on above: Performed By: #### A LANDRY MAYBERRY #### [place] [address] Performed By: #### A CHUCK SANON #### [place] [address] MCV (RBC) [Entitic vol] 89.8 fL Normal 80.0-99.0 [facility] Comment on above: Performed By: #### A LANDRY MAYBERRY #### [place] [address] Performed By: #### A CHUCK SANON #### [place] [address] Platelet 331 10 3/mcL Normal 150-450 [facility] Comment on above: Performed By: #### A LANDRY MAYBERRY #### [place] [address] Performed By: #### A CHUCK SANON #### [place] [address] Platelet mean volume (Bld) [Entitic vol] 8.7 fL Normal 6.6-10.5 [facility] Comment on above: Performed By: #### A LANDRY MAYBERRY #### [place] [address] Performed By: #### A CHUCK SANON #### [place] [address] RBC 5.57 10 6/mcL High 4.10-5.30 [facility] Comment on above: Performed By: #### A LANDRY MAYBERRY #### [place] [address] Performed By: #### A CHUCK SANON #### [place] [address] WBC 14.2 10 3/mcL High 4.5-10.8 [facility] Comment on above: Performed By: #### A LANDRY MAYBERRY #### [place] [address] Performed By: #### A CHUCK SANON #### [place] [address] CHEST 1 VIEWon 09-10-2024 CHEST 1 VIEW [place] [address] [place] [address] Patient: MAGALI RAINEY Phone#: : [phone] Age: 69 Gender: F Pt. Type: ER Account: [id number] Location: [facility] Ordering: MARCO VARELA Exam Date: 09/10/2024/17:21 Family Phys: Charge Code: 055605 Physician: Blount Order #: [id number] Dose#: PROCEDURE: X-RAY CHEST 1 VIEW COMPARISON: [...] Villarreal MD on 09/10/2024 at 17:47 [facility] Albumin Level 2.9 G/dL Low 3.2-4.8 [facility] Comment on above: Performed By: #### G FR, MG, CMP #### [address] [address] Performed By: #### B FPR, GLUBF, BFCT, PROBF #### [address] [address] Albumin/Globulin [Mass ratio] 1.1 {ratio} Normal 0.9-1.6 [facility] Comment on above: Performed By: #### G FR, MG, CMP #### [address] [address] Performed By: #### B FPR, GLUBF, BFCT, PROBF #### [place] [address] ALP [Catalytic activity/Vol] 106 U/L Normal 38-126 [facility] Comment on above: Performed By: #### G FR, MG, CMP #### [place] [address] Performed By: #### B FPR, GLUBF, BFCT, PROBF #### [place] [address] ALT [Catalytic activity/Vol] 452 U/L High 10-49 [facility] Comment on above: Performed By: #### G FR, MG, CMP #### [place] [address] Performed By: #### B FPR, GLUBF, BFCT, PROBF #### [place] [address] AST [Catalytic activity/Vol] 1313 U/L High 8-34 [facility] Comment on above: Performed By: #### G FR, MG, CMP #### [place] [address] Performed By: #### B FPR, GLUBF, BFCT, PROBF #### [place] [address] Bili Total 1.30 mg/dL High 0.20-1.20 [facility] Comment on above: Result Comment: Use of this assay is not recommended for patients undergoing treatment with eltrombopag due to the potential for falsely elevated results. Performed By: #### G FR, MG, CMP #### [place] [address] Performed By: #### B FPR, GLUBF, BFCT, PROBF #### [place] [address] BUN/Creatinine Ratio 19.5 ratio Normal 10.0-22.0 [facility] Comment on above: Performed By: #### G FR, MG, CMP #### [place] [address] Performed By: #### B FPR, GLUBF, BFCT, PROBF #### [place] [address] Calcium [Mass/Vol] 7.8 mg/dL Low 8.7-10.4 [facility] Comment on above: Performed By: #### G FR, MG, CMP #### [place] [address] Performed By: #### B FPR, GLUBF, BFCT, PROBF #### [place] [address] Chloride [Moles/Vol] 106 mmol/L Normal 98-110 [facility] Comment on above: Performed By: #### G FR, MG, CMP #### [place] [address] Performed By: #### B FPR, GLUBF, BFCT, PROBF #### [place] [address] CO2 [Moles/Vol] 22 mmol/L Normal 22-32 [facility] Comment on above: Performed By: #### G FR, MG, CMP #### [place] [address] Performed By: #### B FPR, GLUBF, BFCT, PROBF #### [place] [address] Creatinine [Mass/Vol] 1.28 mg/dL High 0.50-1.20 [facility] Comment on above: Result Comment: Test ing performed on Pollen analyzer using enzymatic creatinine methodology. Performed By: #### G FR, MG, CMP #### [place] [address] Performed By: #### B FPR, GLUBF, BFCT, PROBF #### [place] [address] Electrolyte Balance 18.0 mEq/L High 4.0-15.0 [facility] Comment on above: Performed By: #### G FR, MG, CMP #### [place] [address] Performed By: #### B FPR, GLUBF, BFCT, PROBF #### [place] [address] Globulin 2.7 G/dL Normal 2.5-4.2 [facility] Comment on above: Performed By: #### G FR, MG, CMP #### [place] [address] Performed By: #### B FPR, GLUBF, BFCT, PROBF #### [place] [address] Glucose [Mass/Vol] 258 mg/dL High 82-115 [facility] Comment on above: Performed By: #### G FR, MG, CMP #### [place] [address] Performed By: #### B FPR, GLUBF, BFCT, PROBF #### [place] [address] Potassium [Moles/Vol] 3.5 mmol/L Normal 3.5-5.0 [facility] Comment on above: Performed By: #### G FR, MG, CMP #### [place] [address] Performed By: #### B FPR, GLUBF, BFCT, PROBF #### [place] [address] Sodium [Moles/Vol] 146 mmol/L High 136-145 [facility] Comment on above: Performed By: #### G FR, MG, CMP #### [place] [address] Performed By: #### B FPR, GLUBF, BFCT, PROBF #### [place] [address] Total Protein 5.6 G/dL Low 5.7-8.2 [facility] Comment on above: Performed By: #### G FR, MG, CMP #### [place] [address] Performed By: #### B FPR, GLUBF, BFCT, PROBF #### [address] [address] Urea nitrogen [Mass/Vol] 25.0 mg/dL High 8.0-22.0 [facility] Comment on above: Performed By: #### G FR, MG, CMP #### [place] [address] Performed By: #### B FPR, GLUBF, BFCT, PROBF #### [place] [address] Albumin Level 3.0 G/dL Low 3.2-4.8 [facility] Comment on above: Performed By: #### A LANDRY MAYBERRY #### [place] [address] Performed By: #### A CHUCK SANON #### [place] [address] Albumin/Globulin [Mass ratio] 1.1 {ratio} Normal 0.9-1.6 [facility] Comment on above: Performed By: #### A LANDRY MAYBERRY #### [place] [address] Performed By: #### A CHUCK SANON #### [place] [address] ALP [Catalytic activity/Vol] 121 U/L Normal 38-126 [facility] Comment on above: Performed By: #### A LANDRY MAYBERRY #### [place] [address] Performed By: #### A CHUCK SANON #### [place] [address] ALT [Catalytic activity/Vol] 458 U/L High 10-49 [facility] Comment on above: Performed By: #### A LANDRY MAYBERRY #### [place] [address] Performed By: #### A CHUCK SANON #### [place] [address] AST [Catalytic activity/Vol] 853 U/L High 8-34 [facility] Comment on above: Performed By: #### A LANDRY MAYBERRY #### [place] [address] Performed By: #### A CHUCK SANON #### [place] [address] Bili Total 1.00 mg/dL Normal 0.20-1.20 [facility] Comment on above: Result Comment: Use of this assay is not recommended for patients undergoing treatment with eltrombopag due to the potential for falsely elevated results. Performed By: #### A SHAWANDA ABOGEL #### [place] [address] Performed By: #### A CHUCK SANON #### [place] [address] BUN/Creatinine Ratio 19.2 ratio Normal 10.0-22.0 [facility] Comment on above: Performed By: #### A SHAWANDA ABOMARJAN #### [place] [address] Performed By: #### A CHUCK SANON #### [place] [address] Calcium [Mass/Vol] 7.9 mg/dL Low 8.7-10.4 [facility] Comment on above: Performed By: #### A SHAWANDA ABOMARJAN #### [place] [address] Performed By: #### A CHUCK SANON #### [place] [address] Chloride [Moles/Vol] 105 mmol/L Normal 98-110 [facility] Comment on above: Performed By: #### A SHAWANDA ABOGEL #### [place] [address] Performed By: #### A TALITA ABSMARJAN #### [place] [address] CO2 [Moles/Vol] 24 mmol/L Normal 22-32 [facility] Comment on above: Performed By: #### A SHAWANDA ABOMARJAN #### [place] [address] Performed By: #### A CHUCK SANON #### [place] [address] Creatinine [Mass/Vol] 1.20 mg/dL Normal 0.50-1.20 [facility] Comment on above: Result Comment: Test ing performed on Pollen analyzer using enzymatic creatinine methodology. Performed By: #### A SHAWANDA ABOGEL #### [place] [address] Performed By: #### A CHUCK SANON #### [place] [address] Electrolyte Balance 9.0 mEq/L Normal 4.0-15.0 [facility] Comment on above: Performed By: #### A LANDRY MAYBERRY #### [place] [address] Performed By: #### A CHUCK SANON #### [place] [address] Globulin 2.8 G/dL Normal 2.5-4.2 [facility] Comment on above: Performed By: #### A SHAWANDA ABOGEL #### [place] [address] Performed By: #### A CHUCK SANON #### [place] [address] Glucose [Mass/Vol] 303 mg/dL High 82-115 [facility] Comment on above: Performed By: #### A SHAWANDA ABOMARJAN #### [place] [address] Performed By: #### A TALITA ABSMARJAN #### [place] [address] Potassium [Moles/Vol] 4.0 mmol/L Normal 3.5-5.0 [facility] Comment on above: Result Comment: Spec imen slightly hemolyzed. Performed By: #### A SHAWANDA ABOGEL #### [place] [address] Performed By: #### A CHUCK SANON #### [place] [address] Sodium [Moles/Vol] 138 mmol/L Normal 136-145 [facility] Comment on above: Performed By: #### A LANDRY MAYBERRY #### [place] [address] Performed By: #### A CHUCK SANON #### [place] [address] Total Protein 5.8 G/dL Normal 5.7-8.2 [facility] Comment on above: Performed By: #### A LANDRY MAYBERRY #### [place] [address] Performed By: #### A CHUCK SANON #### [place] [address] Urea nitrogen [Mass/Vol] 23.0 mg/dL High 8.0-22.0 [facility] Comment on above: Performed By: #### A LANDRY MAYBERRY #### [place] [address] Performed By: #### A CHUCK SANON #### [place] [address] CMP with eGFRon 09-10-2024 AGE 69 years Normal [facility] Comment on above: Performed By: #### 2 [id number] #### [facility],[address] [place] [address] Albumin [Mass/Vol] 3.5 g/dL Normal 3.4 - 5.[address] [facility] Comment on above: Performed By: #### 2 68987 #### [facility],[address] [place] [address] Albumin/Globulin [Mass ratio] 0.9 {ratio} Normal 0.9 - 1.6 [facility] Comment on above: Performed By: #### 2 15177 #### [facility],[address] [place] [address] ALK PHOS 152 U/L High 46 - 116 [facility] Comment on above: Performed By: #### 2 31963 #### [facility],[address] [place] [address] ALT [Catalytic activity/Vol] 391 U/L High 16 - 63 [facility] Comment on above: Performed By: #### 2 39399 #### [facility],[address] [place] [address] Anion gap [Moles/Vol] 19 mmol/L Normal 10 - 20 [facility] Comment on above: Performed By: #### 2 56406 #### [facility],[address] [place] [address]27 AST [Catalytic activity/Vol] 442 U/L High 13 - 39 [facility] Comment on above: Performed By: #### 2 31138 #### [facility],[address] [place] [address]345 B/C RATIO 15 ratio Normal 0 - 30 [facility] Comment on above: Performed By: #### 2 47200 #### [facility],[address] [place] [address] Bilirubin [Mass/Vol] 0.9 mg/dL Normal 0.2 - 1.0 [facility] Comment on above: Performed By: #### 2 16902 #### [facility],[address] [place] [address] Calcium [Mass/Vol] 9.3 mg/dL Normal 8.5 - 10.[address] [facility] Comment on above: Performed By: #### 2 77803 #### [facility],[address] [place] [address] Chloride [Moles/Vol] 103 mmol/L Normal 98 - 107 [facility] Comment on above: Performed By: #### 2 27211 #### [facility],[address] [place] [address] CMP with eGFR Normal [facility] Comment on above: Result Comment: COMP REHENSIVE METABOLIC PANEL Performed By: #### 2 41330 #### [facility],[address] [place] [address] CO2 [Moles/Vol] 23.4 mmol/L Normal 21.0 - 32.0 [facility] Comment on above: Performed By: #### 2 36080 #### [facility],[address] [place] [address] Creatinine [Mass/Vol] 1.24 mg/dL High 0.55 - 1.02 [facility] Comment on above: Performed By: #### 2 55763 #### [facility],[address] [place] [address]3225 eGFR 43 ML/MINUTE Low 60 - 999 [facility] Comment on above: Performed By: #### 2 40735 #### [facility],[address] [place] [address]2817 eGFR(AA) 52 ML/MINUTE Low 60 - 999 [facility] Comment on above: Result Comment: ACCO RDING TO THE NATIONAL KIDNEY DISEASE EDUCATION PROGRAM(NKDE), A NORMAL eGFR IS A VALUE GREATER THAN OR EQUAL TO 60 ML/MIN/1.73 SQ METERS. CHRONIC KIDNEY DISEASE: <60mL/MIN/1.73 SQ METERS KIDNEY FAILURE: <15mL/MIN/1.73 SQ METERS THIS TEST SHOULD ONLY BE USED FOR PATIENTS 18 YEARS OF AGE AND OLDER. Performed By: #### 2 24146 #### [facility],[address] [place] [address] Globulin (S) [Mass/Vol] 4.1 g/dL High 1.5 - 3.8 [facility] Comment on above: Performed By: #### 2 17924 #### [facility],[address] [place] [address]39 Glucose [Mass/Vol] 286 mg/dL High 74 - [address] [facility] Comment on above: Performed By: #### 2 18714 #### [facility],[address] [place] [address] Potassium [Moles/Vol] 3.6 mmol/L Normal 3.5 - 5.1 [facility] Comment on above: Performed By: #### 2 53175 #### [facility],[address] [place] [address]85 Protein [Mass/Vol] 7.6 g/dL Normal 6.4 - 8.[address] [facility] Comment on above: Performed By: #### 2 84050 #### [facility],[address] [place] [address] Sodium [Moles/Vol] 142 mmol/L Normal 136 - [address] 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 Aspirin MI 300 mg 17:24 09/10 Aspirin MI 300 mg Given (NOW x1) given. - 17:24 Donnie Espinosa, 17:24 09/10/2024 RErin Espinosa R.N. Not Scanned 1 of 3 Baseball Coach Medication Ordered Medication Administration Date/Time Propofol Drip [...] 18:22 Leonel Narvaez R.N. 2 of 3 Baseball Coach Medication Ordered Medication Administration Date/Time Furosemide (Lasix) 17:53 07 Furosemide (Lasix) Given IVP 40 mg IVP 40 mg given via Site# 2. - 17:53 09/10/2024 17:54 Isaac Bajwa R.N. Scanned NitroGLYCERIN Completed Drip IV 50mg/250ml 18:09/10/2024 Premix 50 mg Leonel Narvaez R.N. 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 3 of 3 Normal [facility] ED NURSES CLINICAL NOTEon ED NURSES CLINICAL NOTE Nurse Narrative Nurse Clinical Narrative [place] [address] [facility] [place] [address] [id number] 09/10/2024 16:56:00 Patient: MAGALI RAINEY Sex: Female : 1955 Age: 69y Disposition: Transfer to [facility] Disposition Decision Time: 17:57 09/10/2024 Departure Time: [...] tech and respiratory therapist. Preparation: pulse oximeter, director of cardiac cath lab and NIBP monitor applied, oxygen administration, BVM, [...] (17:06 09/10/2024). (Spoke with Tee from the [employer] dispatch. They will give us a call [...] and EKG have been faxed to the director of cardiac cath lab). -- 17:59 09/10/24 VENKATESHT Mariel Narvaez 17:12 09/10/24. URINARY CATHETER: 16 fr hernandez catheter placed in ED assisted by two nurses. Reason for catheter: patient's decrease (more content not included)... Normal [facility] ED ORDER SHEET (CPOE ONLY)on 09-10-2024 ED ORDER SHEET (CPOE ONLY) Order Sheet Order Sheet [facility] [address] [place] [address] [id number] 09/10/2024 [id number] Sex: Female : 1955 Age: 69y MEASUREMENTS: Wt: 90.0 kg, Ht/David: 65.0 in, BMI: 33.02 ALLERGIES: No known drug allergies MEDICATION/IV/DRIP/F LUID ORDERS Order Description Priority Entered Acknowledged Completed Heparin [id number] mg (NOW x1, 17:19 09/10/2024 17:23 17:53 [...] 09/10/2024: Order Completed. Leonel Narvaez R.N. Rocuronium [id number] mg (NOW 17:42 09/10/2024 17:45 x1, HIGH ALERT MEDICATION) Marco Varela, 09/10/2024 1 of 4 Order Sheet Dexter Narvaez R.N. Order Comments: 17:02 09/10/2024: Order Completed. Leonel Narvaez R.N. Propofol Drip (Diprivan) IV 17:42 09/10/2024 17:45 17:46 10mg/ml [id number] mg at 5 Marco Varela, 09/10/2024 09/10/2024 mcg/kg/min (450 mcg/min) (NOW Leonel Toney, x1, HIGH ALERT MEDICATION, R.N. R.N. Max 50mcg/kg/min, Use vented tubing) Furosemide (Lasix) IVP40 mg 17:50 09/10/2024 17:53 17:54 Marco Varela, 09/10/2024 09/10/2024 Leonel Toney, Isaac RErin Reason for ordering with alerts: Benefits outweigh risks --17:50 09/10/2024 Marco Varela D.O. NitroGLYCERIN Drip IV 17:58 09/10/2024 18:02 18:02 50mg/250ml [id number] mg at 5 Marco Varela, 09/10/2024 09/10/2024 [...] 17:23 09/10/2024 Sasha Da Silva D.O. R.N. Software Integration Developer 17:19 09/10/2024 17:23 09/10/2024 Sasha Da Silva D.O. RPepeNPepe Vital signs every 15 17:19 09/10/2024 17:23 09/10/2024 minutes Sasha Da Silva D.O. R.N. IV Saline Lock 17:19 09/10/2024 17:23 09/10/2024 Sasha Da Silva D.O. R.N. 3 of 4 Order Sheet [Electronically signed by Marco Varela D.O. (09/10/2024 18:24 EDT)] 4 of 4 Normal [facility] ED PHYSICIAN CLINICAL REPORT on 09-10-2024 ED PHYSICIAN CLINICAL REPORT Narrative Physician Clinical Narrative [address] [address] [id number] 09/10/2024 16:56:00 Patient: MAGALI RAINEY Sex: Female : 1955 Age: 69y Disposition: Transfer to [facility] Disposition Decision Time: 17:57 09/10/2024 Departure Time: [...] post Ross. Patient was at a local [employer] with her son when she fell over [...] 09/10/2024 17:30:00 EDT MsgRcvd: 09/10/2024 17:51 EDT [place] (more content not included)... Normal [facility] ED [facility] BILL 09-10-2024 ED [facility] [address] [place] [address] [phone] 09/10/2024 Patient: MAGALI RAINEY Sex: Female : 1955 Age: 69y Facility Professional Category Item Description Code Code Quantity Fee Total Drugs Normal Saline 750197 1 $0.00 $0.00 1000cc (079000) Nurse/E/M EMERGENCY 492204 1 $0.00 $0.00 DEPT VISIT HIGH SEVERITYFUNCJ (67862-43) Nurse/IV/IM/Infusion s Drip/IVPB initial 238798 1 $0.00 $0.00 (25320) Nurse/IV/IM/Infusion s IVP additional 914823 1 $0.00 $0.00 push (29002) Nurse/IV/IM/Infusion s IVP initial (23115) 789272 1 $0.00 $0.00 Nurse/Procedures Respiratory 745344 1 $0.00 $0.00 therapy - inhalation (99206) Nurse/Supplies #18 Ada NG 820945 1 $0.00 $0.00 (091930) Nurse/Supplies 16 Fr LATEX 976689 1 $0.00 $0.00 FREE Hernandez Kit (043028) 1 of 2 [facility] Professional Category Item Description Code Code Quantity Fee Total Nurse/Supplies Glidescope Lopro 639808 1 $0.00 $0.00 S4 (547230) Nurse/Supplies Oxisensor Adult 2063756 1 $0.00 $0.00 (5020762) Nurse/Supplies Oxygen in the ED 434639 1 $0.00 $0.00 (730049) Nurse/Supplies Vented Tubing 077723 1 $0.00 $0.00 Set (617800) Physician/Procedures Hernandez catheter 920729 1 $0.00 $0.00 (89577) Physician/Procedures Intubation (79632) 480556 557077 1 $0.00 $0.00 Grand $0.00 Total Providers Marco Varela D.O. Chief Complaint CARDIAC ARREST. Principal Diagnosis Cardiac arrest. Pulmonary edema. Acute myocardial infarction. ICD-10 Codes I46.9: Cardiac arrest, cause unspecified T70.29XA: Other effects of high altitude, initial encounter I21.3: ST elevation (STEMI) myocardial infarction of unspecified site 2 of 2 Normal [facility] [place] ED VISIT SUMMARYon ED VISIT SUMMARY Visit Overview Visit Overview [place] [address] [place] [address] [phone] 09/10/2024 Patient: MAGALI RAINEY Sex: Female : [...] GIVEN IN EMERGENCY DEPARTMENT 17:24 09/10/24 Aspirin MI 300 mg 17:45 09/10/24 Propofol Drip (Diprivan) [...] Overview PULMONARY EDEMA 4 of 4 Normal [facility] [place] ED VITALS FLOW SHEETon 09-10 ED VITALS FLOW SHEET Vitals Vital Sign Flow Sheet [address] [place] [address] [phone] 09/10/2024 Patient: MAGALI RAINEY Sex: Female : [...] of 2 Vitals 2 of 2 Normal [facility] FIBon 09-10-2024 Fibrinogen 377 mg/dL Normal 250-560 [facility] Comment on above: Result Comment: Spec imen hemolyzed. Results may be affected. Performed By: #### A BSGEL, ABOGEL #### [place] [address] Performed By: #### A BOGSHALINI ABSGEL #### [place] [address] LABORATORYOrdered By: Hal Tomas on 09-10-2024 RBC [...] above: Interpretive Data: T esting performed on Pollen analyzer using enzymatic creatinine methodology. Electrolyte Balance [...] ng/L Male: 0-54 ng/L Testing performed on [employer] analyzer using direct chemiluminescent technology. TSH Qn [...] above: Interpretive Data: T esting performed on Pollen analyzer using enzymatic creatinine methodology. Electrolyte Balance [...] may be affected. Interpretive Data: T laura [employer] (CHEST, 1992, 102:312S-25S) [...] ng/L Male: 0-54 ng/L Testing performed on [employer] analyzer using direct chemiluminescent technology. Urea nitrogen [...] AH Main Rapid Comm SS LABORATORYOrdered By: Mike Travis on 09-10-2024 aPTT Coag (Bld) [Time] [...] 7.460 Main Rapid Comm SS Sodium [Moles/Vol] -10.67469 mmol/L Invalid Interpretation Code Main Rapid Comm SS LACon 09-10-2024 Lactic Acid Lvl 4.2 mmol/L High 0.5-2.2 [facility] Comment on above: Performed By: #### A BSGEL, ABOGEL #### [place] [address] Performed By: #### H BSAG, HBSAB #### [place] [address] MGon 09-10-2024 Magnesium [Mass/Vol] 1.8 mg/dL Normal 1.6-2.4 [facility] Comment on above: Performed By: #### G FR, MG, CMP #### [place] [address] Performed By: #### B FPR, GLUBF, BFCT, PROBF #### [place] [address] PROon 09-10-2024 INR Coag (PPP) [Relative time] 1.5 {INR} Normal [facility] Comment on above: Result Comment: Spec imen hemolyzed. Results may be affected. The [employer] (CHEST, 1992, 102:312S-25S) recommended therapeutic range for oral anticoagulant therapy is: LOW RISK: Prophylaxis of venous thrombosis INR: 2.0-3.0 Treatment of pulmonary embolism 2.0-3.0 Prevention of systemic embolism 2.0-3.0 HIGH RISK: Mechanical prosthetic valves 2.5-3.5 Performed By: #### A BSGEL, ABOGEL #### [place] [address] Performed By: #### A TALITA ABSGEL #### [place] [id number] PT Coag (PPP) [Time] 17.4 s High 9.0-14.4 [facility] Comment on above: Result Comment: Spec imen hemolyzed. Results may be affected. Effective 09/23/07, Protime results may be affected by some antibiotics (i.e. Ciprofloxacin, Azithromycin, Bactrim) which may potentiate the action of oral anticoagulants, with further increases in Protime/INR. Performed By: #### A LANDRY MAYBERRY #### [place] [address] Performed By: #### A CHUCK SANON #### [place] [address] TROPHSon 09-10-2024 High Sensitivity Troponin I >[address] MAIN Comment on above: Result Comment: High Sensitive Troponin I Reference Ranges: Female: 0-34 ng/L Male: 0-54 ng/L Testing performed on [employer] IM analyzer using direct chemiluminescent technology. Performed By: #### A LANDRY MAYBERRY #### [place] [address] Performed By: #### T ROP #### [place] [address] High Sensitivity Troponin I >[address] MAIN Comment on above: Result Comment: High Sensitive Troponin I Reference Ranges: Female: 0-34 ng/L Male: 0-54 ng/L Testing performed on [employer] IM analyzer using direct chemiluminescent technology. Performed By: #### A LANDRY MAYBERRY #### [place] [address] Performed By: #### A CHUCK SANON #### [place] [address] TROPONINon 09-10-2024 HS TROPONIN 78.5 pg/mL Critically high 0.0 - 51.4 [facility] Comment on above: Result Comment: { CA LLED TO VIVIAN PIERCE BY SHANTELLE 181 { READ BACK BY VIVIAN PIERCE BY SHANTELLE 181 Performed By: #### 2 [address] #### [facility] [place],[address] [place] [address] TSHon 09-10-2024 TSH 2.986 mIU/mL Normal 0.550-4.780 [facility] Comment on above: Performed By: #### A BSGEL, ABOGEL #### [facility] [address] [place] [address] Performed By: #### H BSAG, HBSAB #### [facility] [address] [place] [address] XR CHEST 1 VIEWon 09-10-2024 XR CHEST 1 VIEW ORIGINAL EXAMINATION: ONE XRAY VIEW OF THE CHEST09/10/2024 11:22 pm COMPARISON: 09/10/2024, 9:12 p.m. HISTORY: ORDERING SYSTEM PROVIDED HISTORY: Reason for Exam: ECMO FINDINGS: Stable positioning of endotracheal tube, enteric tube, cardiac Impella device and lower extremity approach [place] catheter. Another wide bore catheter is partially visualized in upper abdomen, tip projecting over expected location of upper IVC. Worsening of bilateral lung opacification. No other significant interval change. IMPRESSION: Support structures as above. Worsening of bilateral lung opacification. I have personally reviewed the images of this examination and agree with the resident's findings and interpretation. Interpreted by: Roger Weber Preliminary Report By: Francicso Grier Electronically signed By Roger Weber Dictated Date: 09/10/2024 11:25:51 PM Prelim Date: 09/10/2024 11:29:40 PM Sign Date: 09/10/2024 11:38:48 PM Ordering Provider: DELVIS GUNDERSON Interpreted by: Roger Weber Preliminary Report By: Francisco Grier Electronically signed By Roger Weber Dictated Date: 09/10/2024 11:25:51 PM Prelim Date: 09/10/2024 11:29:40 PM Sign Date: 09/10/2024 11:38:48 PM Ordering Provider: DELVIS GUNDERSON [facility] XR CHEST 1 VIEW ORIGINAL EXAMINATION: [...] 09/10/2024 9:25:21 PM Ordering Provider: ADE ALVES [facility] [place] [place] METABOLIC PANE [facility] 04-11-2024 Albumin [Mass/Vol] 4.2 g/dL Normal 3.6-5.1 [facility] Comment on above: Performed By: #### 7 600, 16696 #### [facility] [address], [address] [place] [address] Assistant Professor Of Economics: Willie Tovar MD Albumin/Globulin [Mass ratio] 1.7 {ratio} Normal 1.0-2.5 [facility] Comment on above: Performed By: #### 7 600, 40244 #### [facility] [place] [address] Assistant Professor Of Economics: Willie Tovar MD ALP [Catalytic activity/Vol] 83 U/L Normal 37-153 [facility] Comment on above: Performed By: #### 7 600, 72966 #### [facility] [address], [address] [place] [address] Assistant Professor Of Economics: Willie Tovar MD ALT [Catalytic activity/Vol] 14 U/L Normal 6-29 [facility] Comment on above: Performed By: #### 7 600, 48538 #### [facility] [place] [address] Assistant Professor Of Economics: Willie Tovar MD AST [Catalytic activity/Vol] 14 U/L Normal 10-35 [facility] Comment on above: Performed By: #### 7 600, 16044 #### [facility] of [place] [address] Assistant Professor Of Economics: Willie Tovar MD Bilirubin [Mass/Vol] 1.2 mg/dL Normal 0.2-1.2 [facility] Comment on above: Performed By: #### 7 600, 76034 #### [facility] [place] [address] Assistant Professor Of Economics: Willie Tovar MD BUN/CREATININE RATIO SEE NOTE: Normal 6-22 [facility] Comment on above: Result Comment: Not Reported: BUN and Creatinine are within reference range. Performed By: #### 7 600, 73640 #### [facility] [place] [address] Assistant Professor Of Economics: Willie Tovar MD Calcium [Mass/Vol] 9.5 mg/dL Normal 8.6-10.4 [facility] Comment on above: Performed By: #### 7 600, 53180 #### [facility] [place] [address] Assistant Professor Of Economics: Willie Tovar MD Chloride [Moles/Vol] 105 mmol/L Normal 98-110 [facility] Comment on above: Performed By: #### 7 600, 81844 #### [facility] [place] [address] Assistant Professor Of Economics: Willie Tovar MD CO2 [Moles/Vol] 29 mmol/L Normal 20-32 [facility] Comment on above: Performed By: #### 7 600, 33355 #### [facility] [address], [address] [place] [address] Assistant Professor Of Economics: Willie Tovar MD Creatinine [Mass/Vol] 0.76 mg/dL Normal 0.50-1.[address] [facility] Comment on above: Performed By: #### 7 600, 93406 #### [facility] [address], [address] [place] [address] Assistant Professor Of Economics: Willie Tovar MD GFR/1.73 sq M.predicted among non-blacks MDRD (S/P/Bld) [Vol rate/Area] 85 mL/min/{1.73_m2} Normal > OR = 60 [facility] Comment on above: Performed By: #### 7 600, 15120 #### [facility] [address], [address] [place] [address] Assistant Professor Of Economics: Willie Tovar MD Globulin (S) [Mass/Vol] 2.5 g/dL Normal 1.9-3.7 [facility] Comment on above: Performed By: #### 7 600, 34249 #### [facility] [address], [address] [place] [address] Assistant Professor Of Economics: Willie Tovar MD Glucose [Mass/Vol] 108 mg/dL High 65-99 [facility] Comment on above: Result Comment: Fasting reference interval For someone without known diabetes, a glucose value between 100 and 125 mg/dL is consistent with prediabetes and should be confirmed with a follow-up test. Performed By: #### 7 600, 43864 #### [facility] [address], [address] [place] [address] Assistant Professor Of Economics: Willie Tovar MD Potassium [Moles/Vol] 4.4 mmol/L Normal 3.5-5.[address] [facility] Comment on above: Performed By: #### 7 600, 41630 #### [facility] [address], [address] [place] [address] Assistant Professor Of Economics: Willie Tovar MD Protein [Mass/Vol] 6.7 g/dL Normal 6.1-8.1 [facility] Comment on above: Performed By: #### 7 600, 38487 #### [facility] [address], [address] [place] [address] Assistant Professor Of Economics: Willie Tovar MD Sodium [Moles/Vol] 142 mmol/L Normal 135-146 [facility] Comment on above: Performed By: #### 7 600, 15617 #### [facility] [address], [address] [place] [address] Assistant Professor Of Economics: Willie Tovar MD Urea nitrogen [Mass/Vol] 14 mg/dL Normal 7-25 [facility] Comment on above: Performed By: #### 7 600, 70204 #### [facility] [address], [address] [place] [address] Assistant Professor Of Economics: Willie Tovar MD LIPID PANEL, STANDARD 02-0 Cholesterol [Mass/Vol] 194 mg/dL Normal <200 [facility] Comment on above: Performed By: #### 7 600, 01686 #### [facility] of [address], [address] [place] [address] Assistant Professor Of Economics: Willie Tovar MD Cholesterol in HDL [Mass/Vol] 60 mg/dL Normal > OR = 50 [facility] Comment on above: Performed By: #### 7 600, 20910 #### [facility] [place] [address] Assistant Professor Of Economics: Willie Tovar MD Cholesterol in LDL [Mass/Vol] [...] LDL-C. Esdras HERNANDEZ et al. JAMES. 2013;310(19): 6443-7688 (http://education.[employer].iAmplify/faq/VJM351) Performed By: #### 7 600, 14028 #### [facility] [address], [address] [place] [address] Assistant Professor Of Economics: Willie Tovar MD Cholesterol.total/Cho lesterol in HDL [Mass ratio] 3.2 {ratio} Normal <5.0 [facility] Comment on above: Performed By: #### 7 600, 17955 #### [facility] [address], [address] [place] [address] Assistant Professor Of Economics: Willie Tovar MD NON HDL CHOLESTEROL 134 mg/dL (calc) High <130 [facility] Comment on above: Result Comment: For patients with diabetes plus 1 major ASCVD risk factor, treating to a non-HDL-C goal of <100 mg/dL (LDL-C of <70 mg/dL) is considered a therapeutic option. Performed By: #### 7 600, 39664 #### [facility] [address], [address] [place] [address] Assistant Professor Of Economics: Willie Tovar MD Triglyceride [Mass/Vol] 136 mg/dL Normal <150 [facility] Comment on above: Performed By: #### 7 600, 29508 #### [facility] [place] [address] Assistant Professor Of Economics: Willie Tovar MD Laboratory - Chemistry and C hemistry - challengeon 04-10-2024 Albumin [Mass/Vol] 4.2 g/dL Normal 3.6 - 5.1 g/dL [facility], [facility].; [facility] Albumin/Globulin [Mass ratio] 1.7 {ratio} Normal 1.0 - 2.5 [facility], [facility].; [facility], [facility]. ALP [Catalytic activity/Vol] 83 U/L Normal 37 - 153 U/L [facility], [facility].; [employer] [facility], [facility]. ALT [Catalytic activity/Vol] 14 U/L Normal 6 - 29 U/L [facility], [facility].; [facility], [facility]. AST [Catalytic activity/Vol] 14 U/L Normal 10 - 35 U/L [facility], [facility].; [facility], [facility]. Bilirubin [Mass/Vol] 1.2 mg/dL Normal 0.2 - 1 .2 mg/dL [facility], [facility].; [facility], [facility]. Calcium [Mass/Vol] 9.5 mg/dL Normal 8.6 - 10. 4 mg/dL [facility], [facility].; [facility], [facility]. Chloride [Moles/Vol] 105 mmol/L Normal 98 - 11 0 mmol/L [facility], [facility].; [facility], [facility]. Cholesterol [Mass/Vol] 194 mg/dL Normal [facility], [facility].; [facility], [facility]. Cholesterol in HDL [Mass/Vol] 60 mg/dL Normal [facility], [facility].; [facility], [facility]. Cholesterol in LDL [Mass/Vol] 109 mg/dL Abnormal [facility].; [facility], [facility]. CO2 [Moles/Vol] 29 mmol/L Normal 20 - 32 mmol/L [facility], [facility].; [facility], [facility]. Creatinine [Mass/Vol] 0.76 mg/dL Normal 0.50 - 1.05 mg/dL [facility], [facility].; [facility], [facility]. GFR/1.73 sq M.predicted among non-blacks MDRD (S/P/Bld) [Vol rate/Area] 85 mL/min/{1.73_m2} Normal [facility], [facility].; [facility] Glucose [Mass/Vol] 108 mg/dL Abnormal 65 - 99 mg/dL [facility].; [facility], [facility]. Potassium [Moles/Vol] 4.4 mmol/L Normal 3.5 - 5.3 mmol/L [facility], [facility].; [facility] Protein [Mass/Vol] 6.7 g/dL Normal 6.1 - 8.1 g/dL [facility], [facility].; [facility] Sodium [Moles/Vol] 142 mmol/L Normal 135 - 146 mmol/L [facility], [facility].; [facility] Triglyceride [Mass/Vol] 136 mg/dL Normal [facility], [facility].; [facility], [facility]. Urea nitrogen [Mass/Vol] 14 mg/dL Normal 7 - 25 mg/dL [facility].; [place] [employer] [facility]. No Panel Informationon 04-10 BUN/CREATININE RATIO SEE NOTE: Normal 6 - 22 [facility].; [place] [employer] [facility] CHOL/HDLC RATIO 3.2 Normal [facility].; [place] [employer] [facility] GLOBULIN 2.5 Normal 1.9 - 3.7 [facility].; [place] [employer] [facility], [employer]. NON HDL CHOLESTEROL 134 Abnormal [facility].; [facility], [employer]. Vital Signs Date Time Vital Sign Value Performing Clinician Facility 10-18-2024 05:05-0400 Body temperature 37.0 degrees Celsius [facility] Comment on above: Performed By: #### [id number] ####AYDEE Bruce ([id number])[facility] ([facility])[address] [place] [address] 09-16-2024 22:23-0400 Body temperature 37 [facility] Comment on above: NOTE: Patient Results are Not Corrected for Temperature 09-16-2024 22:23-0400 SaO2% (BldA) [Mass fraction] 99 % [facility] 09-10-2024 23:47-0400 SaO2% (BldA) [Mass fraction] 99.2 % MEÑO URBINA MD Main Rapid Comm 09-10-2024 21:05-0400 SaO2% (BldA) [Mass fraction] 63.4 % MEÑO URBINA MD Main Rapid Comm 09-10-2024 19:35-0400 SaO2% (BldA) [Mass fraction] 70.7 % MEÑO URBINA MD Main Rapid Comm 04-23-2024 14:35-0500 Body height 161.29 cm Magdy Wood MD Work Phone: [employer]. 04-23-2024 14:35-0500 Body mass index (BMI) [Ratio] 42.37 kg/m2 Magdy Wood MD Work Phone: [facility] [employer]. 04-23-2024 14:35-0500 Body surface area Derived from formula 2.11 m2 Magdy Wood MD Work Phone: [facility].; [employer]. 04-23-2024 14:35-0500 Body weight 110.22 kg Magdy Wood MD Work Phone: [place] [employer] [facility].; [employer]. 04-23-2024 14:35-0500 Diastolic blood pressure 94 mm[Hg] Magdy Wood MD Work Phone: [place] [employer] [facility].; [employer]. Comment on above: Patient Position: Sitting; Cuff Location : Left Arm; Cuff Size: Standard 04-23-2024 14:35-0500 Heart rate 94 /min Magdy Wood MD Work Phone: [place] [employer] [facility] [employer]. Comment on above: Pattern: Regular 04-23-2024 14:35-0500 Systolic blood pressure 150 mm[Hg] Magdy Wood MD Work Phone: [place] [employer] [facility].; [employer]. Comment on above: Patient Position: Sitting; Cuff Location : Left Arm; Cuff Size: Standard 02-26-2022 10:57-0500 Body height 161.29 cm DayannaEmily Wolf DIRECTOR FURNITURE [facility], [facility].; [employer]. 02-26-2022 10:57-0500 Body mass index (BMI) [Ratio] 39.75 kg/m2 [facility] Maryann [facility], [facility].; [employer]. 02-26-2022 10:57-0500 Body surface area Derived from formula 2.06 m2 [facility] Maryann DIRECTOR FURNITURE [facility], [facility].; [employer]. 02-26-2022 10:57-0500 Body temperature 98.6 [degF] DayannaEmily Wolf DIRECTOR FURNITURE [employer] [facility].; [employer]. Comment on above: Method: Tympanic 02-26-2022 10:57-0500 Body weight 103.42 kg Lesley Wolf LPN [facility], [employer].; [employer]. 02-26-2022 10:57-0500 Diastolic blood pressure 86 mm[Hg] Lesley Wolf DIRECTOR FURNITURE [facility] [employer]. Comment on above: Patient Position: Sitting; Cuff Location : Left Arm; Cuff Size: Large 02-26-2022 10:57-0500 Heart rate 92 /min Lesley Wolf [facility], [employer].; [employer]. Comment on above: Pattern: Regular 02-26-2022 10:57-0500 Inhaled oxygen concentration 21 % Dayanna Maryann [facility], [employer].; [employer]. Comment on above: Room air 02-26-2022 10:57-0500 SaO2% (BldA) [Mass fraction] 96 % Lesley Wolf [facility], [employer].; [employer]. 02-26-2022 10:57-0500 Systolic blood pressure 171 mm[Hg] Lesley Wolf [facility], [employer].; [employer]. Comment on above: Patient Position: Sitting; Cuff Location : Left Arm; Cuff Size: Large 03-05-2017 11:15-0500 Body height 161.29 cm Lesley Wolf [facility], [facility] [place] [employer]. 03-05-2017 11:15-0500 Body mass index (BMI) [Ratio] 35.74 kg/m2 Dayanna Maryann [facility], [employer].; [employer]. 03-05-2017 11:15-0500 Body surface area Derived from formula 1.97 m2 [facility] Maryann [facility], [employer].; [employer]. 03-05-2017 11:15-0500 Body temperature 98.3 [degF] Dayanna Maryann [facility] [employer]. Comment on above: Method: Tympanic 03-05-2017 11:15-0500 Body weight 92.99 kg Lesley Wolf LPN [facility] [employer] 03-05-2017 11:15-0500 Diastolic blood pressure 92 mm[Hg] Lesley Wolf LPN [facility] [employer] Comment on above: Patient Position: Sitting; Cuff Location : Left Arm; Cuff Size: Large 03-05-2017 11:15-0500 Heart rate 97 /min Lesley Wolf [facility], [facility] [employer] Comment on above: Pattern: Regular 03-05-2017 11:15-0500 Inhaled oxygen concentration 21 % Lesley Wolf [facility] [employer] Comment on above: Room air 03-05-2017 11:15-0500 SaO2% (BldA) [Mass fraction] 94 % Lesley Wolf DIRECTOR FURNITURE [facility] [employer] 03-05-2017 11:15-0500 Systolic blood pressure 164 mm[Hg] Lesley Wolf LPN [facility] [employer] Comment on above: Patient Position: Sitting; Cuff Location : Left Arm; Cuff Size: Large 09-06-2015 10:44-0400 Body height 161.29 cm Lesley Wolf DIRECTOR FURNITURE [facility] [employer] 09-06-2015 10:44-0400 Body mass index (BMI) [Ratio] 36.62 kg/m2 Lesley Wolf [facility], [facility] [employer] 09-06-2015 10:44-0400 Body surface area Derived from formula 1.99 m2 Dayanna Maryann DIRECTOR FURNITURE [facility] [employer] 09-06-2015 10:44-0400 Body weight 95.26 kg Lesley Wolf DIRECTOR FURNITURE [facility] [employer] 09-06-2015 10:44-0400 Diastolic blood pressure 73 mm[Hg] Dayanna Maryann [facility], [facility]. Comment on above: Patient Position: Sitting; Cuff Location : Left Arm; Cuff Size: Large 09-06-2015 10:44-0400 Heart rate 82 /min Lesley Wolf [facility] Comment on above: Pattern: Regular 09-06-2015 10:44-0400 Systolic blood pressure 178 mm[Hg] Lesley Wolf [facility], [facility]. Comment on above: Patient Position: Sitting; Cuff Location : Left Arm; Cuff Size: Large Encounters Encounter Date Encounter Type Care Provider Facility Start: 11-26-2024 ambulatory Yamilte Zhao ty:[facility] Start: 10-28-2024 End: 10-28-2024 ambulatory TRINH BANEGAS MD Facility:A Start: 10-27-2024 End: 10-27-2024 ambulatory TRINH BANEGAS MD Facility:A Start: 10-22-2024 End: 11-24-2024 ambulatory NORA HENDERSON MD Facility:A Start: 09-16-2024 End: 09-16-2024 Subsequent hospital visit by physician Alaina Espino [facility] [place] Comment on above: Arrived Start: 09-16-2024 End: 09-16-2024 Evaluation and management of inpatient [facility] S LAPPING [facility] Start: 09-11-2024 End: 09-11-2024 ambulatory UNKNOWN PROVIDER Facility:[facility] Start: 09-11-2024 End: 10-21-2024 Evaluation and management of inpatient GENERIC PROVIDER SCANNING [facility] Start: 09-11-2024 End: 09-11-2024 ambulatory UNKNOWN PROVIDER Facility:[facility] Start: 09-10-2024 End: 09-11-2024 Evaluation and management of inpatient MEÑO URBINA MD [facility] Start: 09-10-2024 End: 09-10-2024 Emergency department patient visit MARCO VARELA [facility] Start: 04-23-2024 Review Magdy Wood MD Work Phone: [employer] Start: 04-23-2024 End: 04-23-2024 Periodic preventive med est patient 65yrs& older Magdy Wood MD Work Phone: [facility] [employer] Start: 04-23-2024 End: 04-23-2024 Patient encounter procedure Holli Son GARY [facility] [employer] Start: 04-23-2024 Review Magdy Wood MD Work Phone: [facility] [employer] Start: 04-22-2024 [facility] Start: 04-10-2024 End: 04-13-2024 Orders Magdy Wood MD Work Phone: [facility] [employer] Start: 02-17-2024 End: 02-18-2024 Orders Magdy Wood MD Work Phone: [facility] Start: 02-26-2022 End: 02-26-2022 Office outpatient visit 15 minutes Magdy Wood MD Work Phone: [facility] Start: 03-05-2017 End: 03-05-2017 Office outpatient visit 15 minutes Magdy Wood MD Work Phone: [facility] Start: 09-06-2015 End: 09-06-2015 Office outpatient visit 15 minutes Magdy Wood MD Work Phone: [facility] Patient encounter procedure Magdy Wood MD Work Phone: [facility]; [facility] Procedures Date Procedure Procedure Detail Performing Clinician Start: 09-16-2024 Chloride bld Interface Unspecifiedprovider Work Phone: Start: 09-16-2024 Coagulation time activated Interface Unspecifiedprovide r Work Phone: Start: 09-16-2024 End: 09-16-2024 Coagulation time activated Interface Unspecifiedprovide r Work Phone: Start: 07-09-2025 Echo transesophag r- t 2d w/prb img acquisj i&r Claudia Z Kvng 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-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 [employer] Work Phone: Start: 09-11-2024 Lipid 1996 panel [...] Author Start: 09-11-2029 Lipid panel Lipid Panel [facility] Start: 09-16-2025 Diabetes mellitus screening Diabetes Screening [facility] Start: 09-11-2025 Hemoglobin A1c measurement Diabetes: Hemoglobin A1C [facility] Start: 11-09-2024 Influenza vaccination Influenza Vaccine (#1) [facility] Start: 07-07-2024 COVID-19 Vaccine ( season) COVID-19 Vaccine ( season) [facility] Start: 04-23-2024 Oncology colorectal screening ari 10 dna markrs COLOGUARD COLON CANCER SCREENING USING STOOL DNA AT POINT OF CARE (93917) Start: 23-Apr-2024 Intent [employer].; Dacuda. Start: 04-23-2024 Screening mammography bi 2-view breast inc cad Mammogram Bilateral Screening Digital w/CAD (88443) Start: 23-Apr-2024 Intent [employer].; [employer] Start: 04-20-2024 Patient encounter procedure Medical; PHYSICAL - AWV [employer]. Start: 20-Apr-2024 14:00-05:00 MD Magdy Wood Appointment Request [facility] Start: 04-10-2024 Comprehensive metabolic panel CMP w/ GFR* (43880) Start: 10-Apr-2024 Request [employer] Start: 04-10-2024 Lipid panel LIPID PANEL ([id number]) Start: 10-Apr-2024 Request [employer] Start: 04-10-2024 Nursing evaluation of patient and report Medical; Nurse visit - AWV. Fasting labs SFB [employer]. Start: 10-Apr-2024 09:40-05:00 NURSE, FLOTHALIA Appointment Request [facility] Start: 03-16-2022 Pneumococcal vaccination Pneumococcal Vaccine (2 of 2 - PCV) [facility] Start: 05-11-2021 Zoster Vaccines (2 of 2) Zoster Vaccines (2 of 2) [facility] Start: 2016 RSV High Risk: (Elderly (60+) or Population) (1 - Risk 60-74 years 1-dose series) RSV High Risk: (Elderly (60+) or Population) (1 - Risk 60-74 years 1-dose series) [facility] Start: 1996 Screening for malignant neoplasm of breast Mammogram [facility] Start: 01-11-1978 DTaP/Tdap/Td Vaccines (1 - Tdap) DTaP/Tdap/Td Vaccines (1 - Tdap) [facility] Start: 01-11-1974 Hepatitis C screening Hepatitis C Screening [facility] Start: 1956 Screening for malignant neoplasm of colon [facility] Start: 1955 Screening for osteoporosis Bone Density Scan [facility] Start: 1955 Thyroid stimulating hormone measurement TSH Level [facility] Start: 1955 Yearly Adult Physical Yearly Adult Physical [facility] Immunizations Immunization Date Immunization Notes Care Provider Fa cility 02-09-2024 influenza, injectabl e, quadrivalent, contains preservative Magdy Wood MD Work Phone: [facility] 02-09-2024 influenza virus vaccine, unspecified formulation [facility] Work Phone: Payers Date Payer Category Payer Unknown [id number] 2024 Unknown XX 2024 Self-pay [id number] 2022 Blue Cross Blue [facility] [id number] 2022 Unknown [id number] 2021 Medicare MEDICARE PART A AND B [id number] 2021 Medicare [id number] 1955 Unknown [id number] [id number] 1956 Unknown [id number]. [id number] 1956 Unknown [id number] [id number]. [id number] 1956 Unknown [id number] [id number]. [id number] 1956 Unknown [id number] [id number]. 2.1245 1956 Unknown [id number] [id number]. 2.1245 1956 Unknown [id number] [id number]. 2.627 Unknown [id number] [id number]. 2.627 Unknown [id number] [id number]. 2.627 Unknown [id number] [id number]. 2.62 Unknown Social History Date Type Detail Facility Tobacco Use: Tobacco Use: ; N ever smoker. [facility] Female [facility] l Never smoked tobacco [facility] Work Phone: Tobacco smoking status [facility] Start: 09-10-2024 Sex Female (finding) [facility] Tobacco smoking stat [facility] Tobacco smoking consumption unknown [facility] Work Phone: Start: 09-12-2024 History of Social function [facility] Start: 09-12-2024 B1300 Health Literacy [facility] How often do you nee d to have someone help you when you read instructions, pamphlets, or other written material from your doctor or pharmacy [SILS] Rarely [facility] Has the [employer], or [employer] threatened to shut off services in your home in past 12Mo No [facility] Work Phone: Within the last year , have you been afraid of your partner or ex-partner? Patient unable to answer [facility] Work Phone: Are you now , , , , never or living with a partner? [facility] Work Phone: How often to you hav e a drink containing alcohol? Monthly or less [facility] Work Phone: How many standard drinks containing alcohol do you have on a typical day? 1 or 2 [facility] Work Phone: How often do you hav e 6 or more drinks on 1 occasion? Never [facility] Work Phone: (I/We) worried jacob er (my/our) food would run out before (I/we) got money to buy more. Never true [facility] Work Phone: Start: 1955 Sex assigned at Not on file [facility] Work Phone: Start: 09-12-2024 Gender identity Identifies as female gender (finding) [facility] Work Phone: Goals Date Patient Goal Desired [...] Locations *1: This test was performed at: [address], [address] [place] [address] 10-29-2024 Note ORIGINAL PROCEDURE: ULTRASOUND GUIDED RIGHT THORACENTESIS FINANCIAL ANALYST: Sheridan Odonnell PA-C CLINICAL STATEMENT: Pleural effusion [...] Sign Date: 10/29/2024 5:35:00 PM Ordering Provider: [facility] 10-29-2024 Note ORIGINAL PROCEDURE: ULTRASOUND GUIDED LEFT THORACENTESIS FINANCIAL ANALYST: Sheridan Odonnell PA-C CLINICAL STATEMENT: Pleural effusion [...] Sign Date: 10/29/2024 5:25:26 PM Ordering Provider: [facility] 09-11-2024 Cardiology Consul t note Referring Physician Dr Urbina History of Present Illness 69-year-old lady with no clear past medical history who had eju-iv-uyiwgowv cardiac arrest bystander CPR presented for STEMI. Patient was seen in the [facility]. Heart failure service was consulted given cardiogenic [...] Obesity Hypertension Hypoxic and hypercapnic respiratory failure Zgh-sx-suhcqzpy cardiac arrest with unknown neurological status Proceeded with Impella CP. Start nitroprusside for afterload reduction given hypotension Systolic blood pressure is noted to be around 150-180 in the [facility]. Another 40 of IV Lasix given for [...] AMERICA SOSA MD on 09/10/2024 08:38 PM [facility] 09-11-2024 Discharge summary Date of Service September 12, 2023 Discharge Diagnosis Gwe-sl-rqmwbeze cardiac arrest Cardiogenic shock secondary to acute anterior STEMI status post LAD stent status post Impella CP placement Acute systolic heart failure Persistent hypoxic respiratory failure despite 100% FiO2 and 20 of PEEP, initiated on [facility] ECMO Hospital Course Patient is a 69-year-old female with no known medical comorbidities who presented as a xfu-rk-vimfdrlf cardiac arrest, downtime was 6 to 8 minutes and ROSC was achieved less than 10 minutes, emergently taken to [facility] for an anterior STEMI status post revascularization [...] to initiate [facility] ECMO and transfer to [facility] for further management. Family was [...] Extremities: Right femoral Impella CP, right femoral [place]-Lidia catheter Code Status Code Status - Ordered [...] AM Digitally Signed by MEÑO URBINA MD [facility] 09-11-2024 Procedure note Date of Service September [...] given. Then using Seldinger technique, a 17 Upper Sorbian femoral arterial cannula was inserted, a 25 Upper Sorbian femoral venous cannula was inserted, and a 60 Upper Sorbian distal perfusion cannula was inserted afterwards. The [...] DELVIS GUNDERSON MD on 09/11/2024 12:17 AM [facility] 09-11-2024 Cardiothoracic surgery Consult note Date of Service September 10, 2024 Reason for Consultation Acute cardiogenic shock with flash pulmonary edema for ECMO consideration History of Present Illness This is a 69-year-old female who had an mnr-ne-oaliesyv cardiac arrest with CPR for 8 minutes [...] ECMO, with a plan to transfer to [facility] for further management. Review of Systems Unobtainable [...] Extremities: Right femoral Impella CP, right femoral [place]-Lidia catheter. Skin: Cold and clammy. Neuro: Unobtainable [...] DELVIS GUNDERSON MD on 09/11/2024 12:15 AM [facility] 09-10-2024 Note Exam Date Time Procedure Performing Provider Status 09/10/24 11:21 PM XR Chest 1 View ROGER WEBER MD; A [facility] (Verified) [id number] ORIGINAL EXAMINATION: ONE XRAY VIEW OF THE CHEST09/10/2024 11:22 pm COMPARISON: 09/10/2024, 9:12 p.m. HISTORY: ORDERING SYSTEM PROVIDED HISTORY: Reason for Exam: ECMO FINDINGS: Stable positioning of endotracheal tube, enteric tube, cardiac Impella device and lower extremity approach [place]-Lidia catheter. Another wide bore catheter is partially [...] 09/10/2024 11:38:48 PM Ordering Provider: DELVIS GUNDERSON [id number] Critical care medicine procedure note [facility] Cardiac Critical Care Procedure Note 09/10/2024 22:02:38 Procedure: Arterial Cannula Placement Indication: Hypoxia, Hypotension Consent: Emergent Procedure (Consent Implied) Timeout performed. Correct patient. Correct procedure. Correct site. Availability of necessary equipment. See nurse documentation for participants. Technique: Basketball Player Preparation: Mask, Cap, Handwashing, Sterile gown and [...] I performed entire procedure. Opal Cantu MD [facility] Cardiac Critical Care CPT: 31803 CPT: 73152 (Ultrasound-guided vascular access) Digitally Signed by OPAL CANTU MD on 09/10/2024 10:03 PM [id number] Critical care medicine Consult note [facility] Cardiac Critical Care Consultation Note Date: 09/10/2024 21:48:18 Patient Name: MAGALI RAINEY : 1955 ICU Admit Date: 09/10/24 Intubation Date: 09/10/24 Reason for Consult: Critical Care and Vent Management HPI: Magali Rainey is a 69 year old female with unknown PMH (per report no medical issues or medications) who went unresponsive at [facility]. She received bystander CPR until EMS arrived within 6-8 minutes. ROSC was attained and she was found to have anterior STEMI then was sent to [facility]. Per report, she arrived on 100% with 20 of PEEP. In director of cardiac cath lab, she had PCI to the LAD then a Impella CP was placed. She was transferred to CCU after director of cardiac cath lab with ongoing discussions of additional mechanical support. [...] Nursing Notes. Critical Care services I provided [id number] 90 minutes. The time involved in the [...] OPAL CANTU MD on 09/10/2024 10:02 PM [id number] Note* Exam Date Time Procedure Performing Provider Status 09/10/24 9:18 PM XR Chest 1 View ROGER WEBER MD; Au (Verified) [id number] ORIGINAL EXAMINATION: ONE XRAY VIEW OF THE [...] 09/10/2024 9:25:21 PM Ordering Provider: ADE ALVES [id number] Note* Exam Date Time Procedure Performing Provider Status 09/10/24 8:51 PM Echocardiogram, Adult - CV JARED MENCHACA MD; Auth (Verified) [facility] [id number] Cardiology Consult note Referring Physician Dr Urbina History of Present Illness 69-year-old lady with no clear past medical history who had exs-ej-qldhwosl cardiac arrest bystander CPR presented for STEMI. Patient was seen in the [facility]. Heart failure service was consulted given cardiogenic [...] Obesity Hypertension Hypoxic and hypercapnic respiratory failure Yqm-bc-rhuufbwa cardiac arrest with unknown neurological status Proceeded with Impella CP. Start nitroprusside for afterload reduction given hypotension Systolic blood pressure is noted to be around 150-180 in the [facility]. Another 40 of IV Lasix given for [...] History No qualifying data available. Medications Inpatient zanda Childrens Aspirin, 81 mg, Oral, qDayM Colace, [...] AMERICA SOSA MD on 09/10/2024 08:38 PM [id number] History and physical note Date of Service 09/10/2024 Chief Complaint STEMI History of Present Illness 69-year-old female was transferred for suspected STEMI. On arrival, patient was in acute respiratory distress, she was urgently taken into the [facility]. Detailed history could not be taken given [...] Impella support. Consulting heart failure and cardiac etcher aircraft teams Will obtain labs Obtain lactic acid, CBC CMP, troponin, BNP Close monitoring in the ICU setting. Procedure/Surgical History No qualifying data available. Medications No qualifying data available Allergies No active allergies Immunizations No qualifying data available. Code Status No qualifying data available. Digitally Signed by IAN LESLIE MD on 09/10/2024 08:00 PM Digitally Signed by MEÑO URBINA MD [id number] Evaluation + Plan noteExtracted from: Title:History and [...] Impella support. Consulting heart failure and cardiac etcher aircraft teams Will obtain labs Obtain lactic acid, CBC CMP, troponin, BNP Close monitoring in the ICU setting. Diagnostic Tests Pending * Troponin I High Sensitivity 09/11/24 [facility] Hospital course Narrative No data available for this section [facility] Discharge instructions No data available for this section [facility] Summary Purpose Family History No Family History [...] DATE CREATED AUTHOR AUTHOR'S ORGANIZ ATION 04/24/2024 [facility] DATE CREATED AUTHOR AUTHOR'S ORGANIZ ATION 09/13/2024 [facility] DATE CREATED AUTHOR AUTHOR'S ORGANIZ ATION 09/20/2024 [facility] DATE CREATED AUTHOR AUTHOR'S ORGANIZ ATION 10/03/2024 [facility] DATE CREATED AUTHOR AUTHOR'S ORGANIZ ATION 10/03/2024 [facility] DATE CREATED AUTHOR AUTHOR'S ORGANIZ ATION 10/26/2024 [facility] DATE CREATED AUTHOR AUTHOR'S ORGANIZ ATION 11/24/2024 [facility] DATE CREATED AUTHOR AUTHOR'S ORGANIZ ATION 11/27/2024 [facility] FOR RECORDS PERTAINING TO PATIENTS WHO [...] BE BASED ON THE PRIMARY CLINICAL RECORDS. [facility] [employer] provides no warranty or guarantee of the accuracy or completeness of information in this document.
[2024-12-01 07:49] LABS: Hematocrit 34.1 % (37-47); Hemoglobin 10.4 g/dL (12.0-15.0); Immature Granulocytes Count 0.030 X10^3/uL (0.0-0.0); Mean Corp Hgb Conc 30.5 g/dL (32-36); Mean Corpuscular Volume 90.9 fL (81-99); Mean Platelet Vol. 10.4 fl (6.2-12.0); NRBC Flagged by Analyzer 0.3 % (0-5); Platelet Count 288 K/mm3 (150-450); RBC Distribution Width CV 15.7 % (11.6-14.6); RBC Distribution Width SD 51.4 fl (35.1-43.9); Red Blood Count 3.75 M/mm3 (4.2-5.4); White Blood Count 6.5 K/mm3 (4.4-11.0)
[2024-12-01 08:18] LABS: Cholesterol 97 mg/dL (<=200); Low Density Lipoprotein Calc. 44 mg/dL; Magnesium 2.0 mg/dL (1.5-2.2); Triglycerides 102 mg/dL; Very Low Density Lipoprotein 20 mg/dL (5-40); Vitamin B12 1079 pg/mL (180-914); cholesterol:hdl ratio screen 2.95
[2024-12-01 08:21] LABS: AST(SGOT) 43 U/L (<=31); Alanine Aminotransfer ALT/SGPT 19 U/L (<=34); Albumin, Serum 2.9 g/dL (3.4-4.8); Alkaline Phosphatase 110 U/L (35-104); Anion Gap 11 (5-15); BUN 13 mg/dL (4-19); BUN/Creat Ratio 5.5 RATIO (10-20); Calcium,Total 9.0 mg/dL (7.6-11.0); Carbon Dioxide 28.8 mmol/L (21.0-32.0); Chloride 97 mmol/L (98-108); Globulin 2.3 g/dL (2.2-4.2); Glucose 74 mg/dL (70-99); Potassium 4.0 mmol/L (3.3-5.1)
[2024-12-02 08:44] LABS: T3 Total - Triiodothyronine 1.03 ng/mL (0.80-2.00); T4 Total, Thyroxin 6.6 ug/dL (4.8-13.9)
== END ==
LOC: OLS.SW 05:00
PROVIDERS: PCP Family Medicine; Visit Provider Internal Medicine
DX: E03.9 Hypothyroidism, unspecified (principal); I50.9 Heart failure, unspecified; N17.9 Acute kidney failure, unspecified; J96.01 Acute respiratory failure with hypoxia
CPT/HCPCS: 36415; 80053; 80061; 82607; 83735; 84100; 84436; 84443; 84480; 85025

== ENCOUNTER 2024-12-10 10:59 | Outpatient (CLI) | payer BC, MEDICARE, SELFPAY ==
--- NOTE | 2024-12-10 11:13 | VDUE_ITS ---
Reason For Study Reason For Study: Acute Kidney Failure Right Lower Arm Left Arm Radial artery measures 0.15x0.16 cm with a velocity Brachial artery measures 0.35x0.32 cm with a velocity of 43.0 cm/sec. of 64.6 cm/sec. Right Arm Cephalic Vein at distal forearm measures 0.26x0.25 Brachial artery measures 0.34x0.36 cm with a velocity cm. of 61.1 cm/sec. Cephalic Vein at mid forearm measures 0.20x0.21 cm. Cephalic Vein at distal forearm measures 0.14x0.14 Cephalic Vein proximal forearm measures 0.23x0.24 cm. cm. Cephalic Vein distal upper arm measures 0.25x0.25 cm. Cephalic Vein at mid forearm measures 0.19x0.20 cm. Cephalic Vein at mid upper arm measures 0.27x0.27 cm. Cephalic Vein proximal forearm measures 0.19x0.20 cm. Cephalic Vein at proximal upper arm measures Cephalic Vein distal upper arm measures 0.20x0.23 cm. 0.27x0.29 cm. Cephalic Vein at mid upper arm measures 0.17x0.20 cm. Proximal Basilic vein measures 0.44x0.48 cm. Cephalic Vein at proximal upper arm measures Mid Basilic vein measures 0.40x0.42 cm. 0.16x0.17 cm. Distal Basilic vein measures 0.33x0.35 cm. Proximal Basilic vein measures 0.43x0.43 cm. Left Lower Arm Mid Basilic vein measures 0.43x0.40 cm. Radial artery measures 0.17x0.17 cm with a velocity Distal Basilic vein measures 0.44x0.45 cm. of 37.4 cm/sec. Procedure Exam performed in department. VL/Dialysis Vein Map PRE-OP BILAT Interpretation Summary Bilateral upper extremity arteries patent with normal waveforms and measurement s above. Bilateral upper extremity veins patent with measurements above. Ordering Physician: Dahlia Grove Referring Physician: Magdy Wood MD Performed By: Tammi Weldon and Student, RVT ???
== END 2024-12-10 23:59 | disposition home or self-care (01) ==
LOC: CVS 11:08
PROVIDERS: PCP Family Medicine; Referring Provider Internal Medicine Nephrology; Visit Provider Internal Medicine Nephrology
DX: Z01.818 Encounter for other preprocedural examination (principal); N17.9 Acute kidney failure, unspecified
CPT/HCPCS: 93985

== ENCOUNTER 2025-02-02 08:51 | Day surgery (SDC) | payer BC, MEDICARE, SELFPAY ==
--- NOTE | 2025-01-29 14:10 | PAT.ANE_ITS ---
Pre-Assessment Diagnosis/Proposed Procedure Planned Operative Procedure(s): (R) Right Upper Arm Arteriovenous Fistula,Creation Anesthesia History Anesthesia History - keyboarding clerk: Anesthesia History - keyboarding clerk Hx Hospitalization Yes: CARDIAC ARREST 01/29/25 11:02 Any Problems With Anesthesia No 01/29/25 11:02 Cholinesterase deficiency No 01/29/25 11:02 You/Your Family Experience No 01/29/25 11:02 fever (hyperthermia) with Relationship Recent Exposure to Contagious Disease Does patient have nerve No 01/29/25 11:02 stimulator Patient instructed to have device shut off --Does patient have Pacemaker or ICD? When Was Last Pacemaker Check QUESTION #4 FULL TEXT: You/Your Family Experience fever (hyperthermia) with Anesthesia Last Oral Intake Last Oral intake: Last Oral Intake NPO since Meds taken in AM with sips of water? Meds patient instructed to take am of surgery PONV PONV - keyboarding clerk: PONV - keyboarding clerk Female Yes 01/29/25 11:02 HX of Motion Sickness No 01/29/25 11:02 HX of N/V After Surgery No 01/29/25 11:02 Non-Smoker Yes 01/29/25 11:02 Duration of Surgery greater Yes 01/29/25 11:02 than 60 minutes Number of Risk Factors 3 01/29/25 11:02 PONV Score Moderate Risk 01/29/25 11:02 Respiratory Assessment Respiratory Assessment - keyboarding clerk: Respiratory Tract Infection Hx - keyboarding clerk Hx Respiratory Tract Infection No 01/29/25 11:02 STOP Sleep Apnea STOP Sleep Apnea - keyboarding clerk: STOP Sleep Apnea - keyboarding clerk Hx Hypertension No 01/29/25 11:02 Hx Sleep Apnea No 01/29/25 11:02 CPAP BIPAP Do you snore loudly (louder Yes 01/29/25 11:02 than talking or can be heard Do you often feel tired/ Yes 01/29/25 11:02 fatigued/ sleepy during daytime? Has anyone observed you stop No 01/29/25 11:02 breathing during sleep? STOP Results Positive 01/29/25 11:02 QUESTION #5 FULL TEXT : Do you snore loudly (louder than talking or can be heard through closed doors)? Tobacco Use History Tobacco Use History - keyboarding clerk: Tobacco Use History - keyboarding clerk Tobacco Use Smoking Status Never smoker 01/29/25 11:02 Hx Tobacco Use No 01/29/25 11:02 Years Smoking Packs Smoked per Day Smoking Cessation Date was within the last 15 years Hx Smoking Cessation Date Hx Smoking Cessation Counseling Hematologic Medial History Hematologic Hx - keyboarding clerk: Hematologic Medical Hx - parachute rigger Hx of Blood Transfusion Yes 01/29/25 11:02 Hx of Transfusion in last 3 Yes 01/29/25 11:02 Months Date of Last Transfusion (if 10/202401/29/25 11:02 within last 3 months) Ever experience any problems No 01/29/25 11:02 with transfusion(s)? Specify any problems Hx of Preganancy in last 3 No 01/29/25 11:02 Months Nurse Filling Out Transfusion MGRIFFITH 01/29/25 11:02 & Questions: Date: 01/29/25 01/29/25 11:02 Time: 11:04 01/29/25 11:02 Patient unable to answer at this time (ie. confused, unrespo /Reproduction History /Reproductive History - keyboarding clerk: /Reproductive Hx- keyboarding clerk Hx Now Gestational Age (in weeks): EDC: Hx Hx Para Hx Section SAB No 01/29/25 11:02 Does the father of the baby or his family experience fever w Father of the baby Malignant Hypertension history comment [facility] Medical History (Updated 01/29/25 @ 11:11 by Claudia Ramos) Gastric reflux Thyroid disease Skin tear History of renal dialysis High cholesterol Non-smoker History of echocardiogram Cardiology follow-up encounter History of heart attack History of atrial fibrillation CHF (congestive heart failure) Respiratory failure History of medical treatment Hypotension Neuropathy Right femoral vein DVT Tracheitis Pleural effusion Hyperlipidemia GERD (gastroesophageal reflux disease) Dialysis patient ESRD (end stage renal disease) STEMI (ST elevation myocardial infarction) History of extracorporeal membrane oxygenation Cardiogenic shock Cardiac arrest Home Medications ?Medication ?Instructions ?Recorded ?Last Taken ?Type atorvastatin 40 mg tablet (Lipitor) 40 mg PO QHS 12/28 Unknown History clopidogrel 75 mg tablet (Plavix) 75 mg PO QDAY Unknown History gabapentin 100 mg capsule 100 mg PO BID 12/28/24 Unkno wn History midodrine 5 mg tablet 5 mg PO TID PRN SBP<90 WITH 12/28/24 Unknown History DIALYSIS pantoprazole 40 mg tablet,delayed 40 mg PO QDAY Unknown History release vitamin B complex-vitamin C-folic 1 tab PO QDAY Unknown History acid 0.8 mg tablet (Renal-Jacinta) acetaminophen 325 mg capsule 650 mg PO Q4H PRN fever o r pain 01/05/25 Unknown History albuterol sulfate 2.5 mg/3 mL 2.5 mg inhalation Q6H UT N 01/05/25 Unknown History (0.083 %) solution for nebulization shortness of breat h or wheezing apixaban 5 mg tablet (Eliquis) 2.5 mg PO BID 01/05/25 Unknown History Held on 01/29/25. Instructions: ON HOLD FROM 02/01/25 TO 02/02/2025 diclofenac sodium 1 % gel topical 4 g topical .2-4 eliceo es a day 01/05/25 Unknown History kit levothyroxine 25 mcg capsule 25 mcg PO QDAY 01/05/25 U nknown History loperamide 2 mg tablet 2 mg PO Q12H PRN loose stool 01/05/25 Unknown History melatonin 5 mg capsule 5 mg PO QHS 01/05/25 Unknown History ascorbic acid (vitamin C) 500 mg 500 mg PO DAILY 01/29 Unknown History tablet (C-500) ondansetron 4 mg disintegrating 4 mg PO DAILY PRN naus ea and 01/29/25 Unknown History tablet vomiting triamcinolone acetonide 0.1 % 1 applic topical QHS Unknown History topical cream Allergy/AdvReac Type Severity Reaction Status Date / Time chlorhexidine Allergy Unknown unknown Verified 01/29/25 10:48 isopropyl alcohol Allergy Unknown unknown Verified 01/29/25 10:48 vancomycin Allergy Unknown unknown Verified 01/29/25 10:48 Family History (Updated 01/19/25 @ 08:41 by Sindi Kiser) Other Breast cancer CVA (cerebral vascular accident) Cancer Diabetes Heart disease Hypertension Kidney disease Myocardial infarction Thyroid disorder Surgical History (Updated 01/29/25 @ 11:02 by Claudia Ramos) History of surgery History of thoracentesis History of coronary artery stent placement History of cardiac catheterization Social History (Updated 01/19/25 @ 08:41 by Sindi Kiser) Smoking Status: Never smoker Audit: Pertinent Findings Pertinent Findings EKG Perinent findings: 01/05/2025. Normal sinus rhythm 88 bpm. Anterior septal infarct, age undetermined. Consult pertinent findings: Cardiology 01/05/2025. CHF. Original STEMI event was September 10, 2024. EF 10 to 15% at that time. September 30, 2024 echo showed EF 40 to 45%. October 20, 2024 EF 41% consistent with an ischemic anterior wall scar. Patient's volume status appears well-controlled current dialysis. End-stage renal disease. On dialysis. Additional pertinent findings: Clearance letter from cardiology 02/01/2025 note. No appointment needed prior to procedure. And procedure cleared from a cardiac standpoint. No additional changes. Dr. Vo Recommendation Anesthesia Recommendation Anesthesia recommendation: OPTIMIZED for anesthesia
[2025-02-02] VITALS (10 sets, daily range): BP systolic 103–120; BP diastolic 50–64; PULSE 76–81; RESP 16; TEMP 36.2–37; O2SAT 95–98; BMI 34.2
[2025-02-02 09:41] LABS: Hematocrit 36.0 % (37-47); Hemoglobin 11.4 g/dL (12.0-15.0); Mean Corp Hgb Conc 31.7 g/dL (32-36); Mean Corpuscular Volume 93.3 fL (81-99); Mean Platelet Vol. 9.6 fl (6.2-12.0); POSITIVE MORPHOLOGY YES; Platelet Count 297 K/mm3 (150-450); RBC Distribution Width CV 20.1 % (11.6-14.6); RBC Distribution Width SD 68.6 fl (35.1-43.9); Red Blood Count 3.86 M/mm3 (4.2-5.4); White Blood Count 6.0 K/mm3 (4.4-11.0)
[2025-02-02 09:44] LABS: Scan Indicated on CBC? Y/N YES- FLAGS NOTED
[2025-02-02] MEDS: 0.9% Normal Saline (500mL Bag) 500 ML 15 ML IV (09:47)
--- NOTE | 2025-02-02 09:59 | PRE.ANES_ITS ---
ASA Classification* ASA Classification ASA Classification: 4 (ESRD, CAD x 1 stent, MOLLY, O2 at night, GERD, Thyroid.) Assessment & Plan Anesthesia* Anesthesia Assessment Anesthesia Assessment: Discussed sedation and/or anesthesia options, risks, benefits, and alternatives with patient/parents/legal guardian/POA. Questions invited. The patient/parents/legal guardian/POA seems to understand and agrees to proceed with anesthesia plan. Reviewed the physical assessment, medical history, allergy history and patient home medications list prior to surgery/procedure/anesthetic and documented any changes. Performed airway and anesthesia risk assessments. Anesthesia Type Anesthesia Type: MAC and Block (Supraclavicular nerve block. Benefits/risks/alternatives explained. Patient voiced understanding and wished to proceed. Opportunity for questions ellicited. ) History Source History Obtained from:: Patient and Chart Anesthesia Focused Assessment* Temperature: 98.6 F Pulse Rate: 80 Blood Pressure: 118/63 Respiratory Rate: 16 Pulse Ox: 98 Oxygen Delivery Method: Room Air Airway Assessment Mouth opens: >3 cm Mallampati Score: III Neck Range of motion (ROM): Full ROM Labs Anesthesia Preop lab: CBC WBC, (4.4-11.0) 6.0 K/mm3 Today, 09:33 RBC, (4.2-5.4) 3.86 M/mm3 L Today, 09:33 Hgb, (12.0-15.0) 11.4 g/dL L Today, 09:33 Hct, (37-47) 36.0 % L Today, 09:33 Plt Count, (150-450) 297 K/mm3 Today, 09:33 CHEMISTRY Potassium, (3.3-5.1) 4.0 mmol/L 12/15/24, 05:40 Sodium, (133-145) 140 mmol/L 12/15/24, 05:40 Magnesium, (1.5-2.2) 2.0 mg/dL 12/15/24, 05:40 Phosphorus, (2.7-4.5) 3.3 mg/dL 12/01/24, 04:25 BUN, (4-19) 8 mg/dL 12/15/24, 05:40 Creatinine, (0.70-1.20) 2.93 mg/dL H 12/15/24, 05:40 Glucose, (70-99) 69 mg/dL L 12/15/24, 05:40 TSH, (0.300-4.200) 3.550 uIU/mL 01/19/25, 05:35 COAG Pre-Assessment Diagnosis/Proposed Procedure Planned Operative Procedure(s): (R) Right Upper Arm Arteriovenous Fistula,Creation Anesthesia History 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 When Was Last Pacemaker Check QUESTION #4 FULL TEXT: You/Your Family Experience fever (hyperthermia) with Anesthesia Last Oral Intake Last Oral intake: Last Oral Intake NPO since 04:30 02/02/25 09:40 Meds taken in AM with sips of Yes 02/02/25 09:40 water? 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 Female Yes 01/29/25 11:02 HX of Motion Sickness No 01/29/25 11:02 HX of N/V After Surgery No 01/29/25 11:02 Non-Smoker Yes 01/29/25 11:02 Duration of Surgery greater Yes 01/29/25 11:02 than 60 minutes Number of Risk Factors 3 01/29/25 11:02 PONV Score Moderate Risk 01/29/25 11:02 Height & Weight Height & Weight: Anesthesia: Height & Weight Height 5 ft 5 in 02/02/25 09:40 Weight: 93.5 kg 02/02/25 09:40 Body Mass Index (BMI) 34.2 02/02/25 09:40 Respiratory Assessment Respiratory Assessment - painting machine operator: Respiratory Tract Infection Hx - painting machine operator Hx Respiratory Tract Infection No 01/29/25 11:02 STOP Sleep Apnea STOP Sleep Apnea - painting machine operator: STOP Sleep Apnea - painting machine operator Hx Hypertension No 01/29/25 11:02 Hx Sleep Apnea No 01/29/25 11:02 CPAP BIPAP Do you snore loudly (louder Yes 01/29/25 11:02 than talking or can be heard Do you often feel tired/ Yes 01/29/25 11:02 fatigued/ sleepy during daytime? Has anyone observed you stop No 01/29/25 11:02 breathing during sleep? STOP Results Positive 01/29/25 11:02 QUESTION #5 FULL TEXT : Do you snore loudly (louder than talking or can be heard through closed doors)? 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 Specify any problems Hx of Preganancy in last 3 No 01/29/25 11:02 Months Nurse Filling Out Transfusion MGRIFFITH 01/29/25 11:02 & Questions: Date: 01/29/25 01/29/25 11:02 Time: 11:04 01/29/25 11:02 Patient unable to answer at this time (ie. 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: /Reproductive Hx- painting machine operator Hx Now Gestational Age (in weeks): EDC: Hx Hx Para Hx Section SAB No 01/29/25 11:02 Does the father of the baby or his family experience fever w Father of the baby Malignant Hypertension history comment Active Medications Active Medications: Current Medications Generic Name Dose Route Start Last Admin Trade Name Freq PRN Reason Stop Dose Admin Sodium Chloride 500 mls @ 0 mls/hr 02/02/25 09:00 02/02/25 09:47 IV 15 mls/hr .Q0M TON Administration KVO PFSH Medical History (Updated 01/29/25 @ 11:11 by Claudia Ramos) Gastric reflux Thyroid disease Skin tear History of renal dialysis High cholesterol Non-smoker History of echocardiogram Cardiology follow-up encounter History of heart attack History of atrial fibrillation CHF (congestive heart failure) Respiratory failure History of medical treatment Hypotension Neuropathy Right femoral vein DVT Tracheitis Pleural effusion Hyperlipidemia GERD (gastroesophageal reflux disease) Dialysis patient ESRD (end stage renal disease) STEMI (ST elevation myocardial infarction) History of extracorporeal membrane oxygenation Cardiogenic shock Cardiac arrest Home Medications ?Medication ?Instructions ?Recorded ?Last Taken ?Type atorvastatin 40 mg tablet (Lipitor) 40 mg PO QHS 12/28 Unknown History clopidogrel 75 mg tablet (Plavix) 75 mg PO QDAY 02/02/25 04:30 History gabapentin 100 mg capsule 100 mg PO BID 12/28/24 Unkno wn History midodrine 5 mg tablet 5 mg PO TID PRN SBP<90 WITH 12/28/24 Unknown History DIALYSIS pantoprazole 40 mg tablet,delayed 40 mg PO QDAY 02/02/25 04:30 History release vitamin B complex-vitamin C-folic 1 tab PO QDAY Unknown History acid 0.8 mg tablet (Renal-Jacinta) acetaminophen 325 mg capsule 650 mg PO Q4H PRN fever o r pain 01/05/25 Unknown History albuterol sulfate 2.5 mg/3 mL 2.5 mg inhalation Q6H OR N 01/05/25 Unknown History (0.083 %) solution for nebulization shortness of breat h or wheezing apixaban 5 mg tablet (Eliquis) 2.5 mg PO BID 01/05/25 01/31/25 History Held on 01/29/25. Instructions: ON HOLD FROM 02/01/25 TO 02/02/2025 diclofenac sodium 1 % gel topical 4 g topical .2-4 eliceo es a day 01/05/25 Unknown History kit levothyroxine 25 mcg capsule 25 mcg PO QDAY 01/05/25 1 04/04/24 04:30 History loperamide 2 mg tablet 2 mg PO Q12H PRN loose stool 01/05/25 Unknown History melatonin 5 mg capsule 5 mg PO QHS 01/05/25 Unknown History ascorbic acid (vitamin C) 500 mg 500 mg PO DAILY 01/29 Unknown History tablet (C-500) ondansetron 4 mg disintegrating 4 mg PO DAILY PRN naus ea and 01/29/25 Unknown History tablet vomiting triamcinolone acetonide 0.1 % 1 applic topical QHS Unknown History topical cream Allergy/AdvReac Type Severity Reaction Status Date / Time chlorhexidine Allergy Unknown unknown Verified 02/02/25 09:39 isopropyl alcohol Allergy Unknown unknown Verified 02/02/25 09:39 vancomycin Allergy Unknown unknown Verified 02/02/25 09:39 Family History (Updated 01/19/25 @ 08:41 by Sindi Kiser) Other Breast cancer CVA (cerebral vascular accident) Cancer Diabetes Heart disease Hypertension Kidney disease Myocardial infarction Thyroid disorder Surgical History (Updated 01/29/25 @ 11:02 by Claudia Ramos) History of surgery History of thoracentesis History of coronary artery stent placement History of cardiac catheterization Social History (Updated 01/19/25 @ 08:41 by Sindi Kiser) Smoking Status: Never smoker Review of Systems (Anesthesia) ROS Narrative System reviewed and no additional complaints, except as documented. Physical Exam Const alert, oriented x3 and average body habitus Resp normal respiratory effort, normal air movement and clear to auscultation bilaterally Cardio regular rate, regular rhythm and no murmurs; Negative for diaphoretic
--- NOTE | 2025-02-02 10:07 | PCM.HP.BLA ---
History and Physical Allergies chlorhexidine Allergy (Unknown, Verified 01/19/25 08:43) unknown isopropyl alcohol Allergy (Unknown, Verified 01/19/25 08:43) unknown vancomycin Allergy (Unknown, Verified 01/19/25 08:43) unknown Medications ?Medication ?Instructions ?Recorded ?Confirmed ?Type atorvastatin 40 mg tablet (Lipitor) 40 mg PO QHS 12/28/24 01/19/25 History clopidogrel 75 mg tablet (Plavix) 75 mg PO QDAY 12/28/24 01/19/25 History gabapentin 100 mg capsule 100 mg PO BID 12/28/24 01/19/25 History midodrine 5 mg tablet 5 mg PO TID PRN 12/28/24 01/19/25 History pantoprazole 40 mg tablet,delayed 40 mg PO QDAY 12/28/24 01/19/25 History release vitamin B complex-vitamin C-folic 1 tab PO QDAY 12/28/24 01/19/25 History acid 0.8 mg tablet (Renal-Jacinta) acetaminophen 325 mg capsule 650 mg PO Q4H PRN 01/05/25 01/19/25 History albuterol sulfate 2.5 mg/3 mL 2.5 mg inhalation Q6H PRN 01/05/25 01/19/25 History (0.083 %) solution for nebulization apixaban 5 mg tablet (Eliquis) 2.5 mg PO BID 01/05/25 01/19/25 History diclofenac sodium 1 % gel topical 4 g topical .2-4 times a day 01/05/25 01/19/25 History kit levothyroxine 25 mcg capsule 25 mcg PO QDAY 01/05/25 01/19/25 History loperamide 2 mg tablet 2 mg PO Q12H PRN 01/05/25 01/19/25 History melatonin 5 mg capsule mg PO QHS 01/05/25 01/19/25 History Is last menstrual period known: No Post menopausal: Yes Patient : No Have you fallen in the past year?: Yes PFSH Medical History CHF (congestive heart failure) Respiratory failure History of medical treatment Hypotension Neuropathy Right femoral vein DVT Tracheitis Pleural effusion Hyperlipidemia GERD (gastroesophageal reflux disease) Dialysis patient ESRD (end stage renal disease) STEMI (ST elevation myocardial infarction) History of extracorporeal membrane oxygenation Cardiogenic shock Cardiac arrest Surgical History History of thoracentesis History of coronary artery stent placement History of cardiac catheterization Family History (Updated 01/19/25 @ 08:41 by Sindi Kiser) Other Breast cancer CVA (cerebral vascular accident) Cancer Diabetes Heart disease Hypertension Kidney disease Myocardial infarction Thyroid disorder Social History (Updated 01/19/25 @ 08:41 by Sindi Kiser) Smoking Status: Never smoker HPI HPI HPI: LORENA RAINEY, is a 70 F who presents to the office today for consultation regarding AVF creation. She had vein mapping on 12/10/24. She is accompanied to her appointment today by her son who helps with her healthcare. She had a heart attack in September and subsequently was on ECMO for 3 weeks; unfortunately, she suffered acute renal failure requiring dialysis and has not recovered meaningful renal function to this point. She currently receives dialysis via R IJ tunneled catheter MWF at [facility] but will be transitioning to [facility] once she is discharged from SNF in the next few weeks. She reports numerous bilateral IVs during her hospitalization but no PICC lines as far as she is aware; unsure of central line locations, thinks she may have had a L IJ at one point. She has no pacemaker/ICD. She has never broken her arm or collarbone and denies any chest/neck radiation. She denies any persistent upper extremity edema and has had no upper extremity DVT to her knowledge. She is left-hand dominant. ROS General General: Yes fatigue; No weight change, appetite, colon cancer, breast cancer or weakness HEENT HEENT: No difficulty swallowing, eye injury, eye surgery, swollen glands or hoarseness Endo Endocrine: No thyroid disease, diabetes mellitus, thyroid cancer, Hair loss, heat intolerance or cold intolerance Skin Skin: Yes rash; No changing moles Musc Musculoskeletal: No back problems, arthritis, rheumatoid arthritis, gout or joint pain Cardio Cardiovascular: Yes heart disease, heart attack and heart stent; No murmur, pacemaker, atrial fibrillation, high blood pressure, palpitations, shortness of breath with exertion or chest pain Psych Psychiatric: No depression, anxiety or hearing voices Resp Respiratory: No shortness of breath, No sleep apnea, No cough, No COPD, No asthma, No emphysema and No wheezing Gastro Gastrointestinal: No abdominal pain, Yes nausea or vomiting, Yes diarrhea, No constipation, No blood in stool, No acid reflux, No hemorrhoids, No ulcers, No gallbladder problem and No black,tarry stools K[place]an Hematologic: Yes blood thinners, No blood disorders, No bleeding, No anemia and No blood clots Neuro Neurologic: No system reviewed and no additional complaints, except as documented, No as per HPI, No abnormal gait, No abnormal hearing, No abnormal movements, No abnormal speech, No behavioral changes, No burning sensations, No confusion, No convulsions, Yes disequilibrium, No dizziness, Yes localized weakness, No frequent falls, Yes headache(s), No lack of coordination, No loss of vision, No memory loss, Yes numbness, No other visual disturbances, No radicular pain, No restless legs, No sensory deficit, No syncope, Yes tingling, No tremor(s), No weakness and No other Exam Const General: cooperative, comfortable and no acute distress Nutritional Appearance: average body habitus Orientation: alert, awake and oriented x3 HENMT Head: normocephalic and atraumatic Nose: external nose normal Eyes General: appearance normal, both eyes and all related structures Neck Neck: normal visual inspection and trachea midline Resp Effort & Inspection: normal respiratory effort, able to speak in complete sentences, no grunting, not labored, no respiratory distress and no retractions Auscultation: clear to auscultation bilaterally Cardio Rate: regular rate Rhythm: regular rhythm Skin General: no rashes or lesions noted Wounds: no wounds Neuro General: moves all extremities, no focal motor deficits and CN's II-XI intact bilaterally Speech: speech normal Extremities Pulses: Normal: Right Radial Pulse and Left Radial Pulse Lower Extremity Edema: None: Bilateral Psych Appearance: grossly normal Mental Status: mental status grossly normal Affect: normal affect Speech and Movement: speech and movement normal Attitude: cooperative Coding Level of Care Code Off vis,new,level 4 Diagnoses ESRD (end stage renal disease) on dialysis N18.6; Z99.2 Assessment and Plan Assessment and Plan (1) ESRD (end stage renal disease) on dialysis: Status: Acute Plan Reviewed vein mapping; patient prefers RUE, she is left handed; RUE basilic is adequate. Will proceed with RUE [place] AVF creation. We discussed risks, benefits, and recovery. She is agreeable to proceed.
[2025-02-02 10:11] LABS: Anion Gap 10 (5-15); BUN 11 mg/dL (4-19); BUN/Creat Ratio 3.9 RATIO (10-20); Calcium,Total 9.1 mg/dL (7.6-11.0); Carbon Dioxide 29.0 mmol/L (21.0-32.0); Chloride 97 mmol/L (98-108); Estimated Creatinine Clearance 20.55 ml/min (50-250); Glucose 98 mg/dL (70-99); Potassium 3.7 mmol/L (3.3-5.1)
[2025-02-02] MEDS: 0.9% Normal Saline (1000mL) 300 ML IV (10:19)
[2025-02-02] MEDS: Cefazolin 1 GM/5 ML Vial 2 GM IV (10:30)
[2025-02-02] MEDS: fentaNYL 100 MCG/2 ML Ampul 50 MCG IV (10:43)
[2025-02-02] MEDS: Heparin Injection 5,000 UNITS/ML Syringe 8000 UNITS IV (11:06)
--- NOTE | 2025-02-02 11:46 | EX.PCM.DISCH ---
Discharge Instructions Diet Discharge Diet: Renal Diet Activity Lifting Restrictions: do not lift >20 lbs with right arm for 14 days Additional Activity Instructions:: do not submerge incision for 14 days Dressing / Incision Call your doctor if your incision/area has: Sudden Increased Bleeding, Increased Pain/ Swelling, Increased Redness and Foul Smelling Discharge Call your doctor if you observe: Coldness, Increased Pain and Numbness or Tingling Remove Dressing in: 2 days Cleanse incision/area with: Soap & Water Follow Up Care Test Results: Test results from this visit will be discussed in further detail at your follow-up appointment, if applicable. Discharge Plan Admission Attending Provider: Hossein Goodwin Primary Care Provider: Magdy Wood Instructions Print Language: [place] Discharge Orders/Prescriptions Prescriptions: New oxycodone 5 mg tablet 5 mg PO Q8H PRN (Reason: pain) 1 Days Qty: 3 0RF Continued atorvastatin [Lipitor] 40 mg tablet 40 mg PO QHS midodrine 5 mg tablet 5 mg PO TID PRN (Reason: SBP<90 WITH DIALYSIS) Rx Instructions: do not give last dose of day after 6PM or within 4 hrs of bedtime clopidogrel [Plavix] 75 mg tablet 75 mg PO QDAY pantoprazole 40 mg tablet,delayed release (DR/EC) 40 mg PO QDAY Renal-Jacinta 0.8 mg tablet 1 tab PO QDAY gabapentin 100 mg capsule 100 mg PO BID albuterol sulfate 2.5 mg /3 mL (0.083 %) solution for nebulization 2.5 mg inhalation Q6H PRN (Reason: shortness of breath or wheezing) acetaminophen 325 mg capsule 650 mg PO Q4H PRN (Reason: fever or pain) loperamide 2 mg tablet 2 mg PO Q12H PRN (Reason: loose stool) levothyroxine 25 mcg capsule 25 mcg PO QDAY melatonin 5 mg capsule 5 mg PO QHS diclofenac sodium 1 % kit 4 g topical .2-4 times a day Rx Instructions: shoulders for chronic pain triamcinolone acetonide 0.1 % cream 1 applic topical QHS ascorbic acid (vitamin C) [C-500] 500 mg tablet 500 mg PO DAILY ondansetron 4 mg tablet,disintegrating 4 mg PO DAILY PRN (Reason: nausea and vomiting) Held Eliquis 5 mg tablet 2.5 mg PO BID Hold Instructions: Resume on 02/03/25. PM dose Referrals / Follow Up: Magdy Wood MD [Primary Care Provider, Medical] Disposition Disposition (needs filled in before D/C Order can be placed): Home, Self Care
--- NOTE | 2025-02-02 12:14 | PCM.POST.ANE ---
Anesthesia: Postop Eval I Current Vital Signs Temperature: 97.2 F Pulse Rate: 80 Blood Pressure: 103/63 Respiratory Rate: 16 Pulse Ox: 97 Oxygen Delivery Method: Room Air Assessment Airway patent: Yes Spontaneous unlabored respirations: Yes Mental status: Awake and Calm nausea: No Vomiting: No Anesthesia Complication: No Fluid Hydration Crystalloid volume administer (ml): 300 Total IV fluid infused: 300 Progress Note Anesthesia document: Postop Eval 1 completed: Yes
--- NOTE | 2025-02-02 13:37 | POSTOPAN2_ITS ---
Anesthesia Postop Eval I Sum Postop Eval Completion status Anesthesia document: Postop Eval 1 completed: Yes Anesthesia Postop Eval I Summary Anesthesia Postop Eval I Summary: Anesthesia Postop Eval I: Assessment Summary Airway patent Yes 02/02/25 12:14 [email or web address] [email or web address] Spontaneous unlabored Yes 02/02/25 12:14 [email or web address] [email or web address] respirations Mental status Awake,Calm 02/02/25 12:14 [email or web address] [email or web address] nausea No 02/02/25 12:14 CHARGE [email or web address] [email or web address] Vomiting No 02/02/25 12:14 CHARGE GANG [email or web address] Anesthesia Postop Eval I: Fluid Summary Crystalloid volume administer 300 02/02/25 12:14 [email or web address] [email or web address] (ml) Colloids volume administered ( ml) Blood Product volume administered (ml) Total IV fluid infused 300 02/02/25 12:14 CHARGE [email or web address] Anesthesia Postop Eval I: Summary Notes Anesthesia Complication No 02/02/25 12:14 [email or web address] [email or web address] Anesthesia Complication Comment: Post-operative progress note Anesthesia: Postop Eval II Evaluation Mental status: Awake Pain Level: 0 nausea: No Vomiting: No Complications Anesthesia Complication: No
--- NOTE | 2025-02-02 13:37 | PCM.POSTANE2 ---
Anesthesia Postop Eval I Sum Postop Eval Completion status Anesthesia document: Postop Eval 1 completed: Yes Anesthesia Postop Eval I Summary Anesthesia Postop Eval I Summary: Anesthesia Postop Eval I: Assessment Summary Airway patent Yes 02/02/25 12:14 [email or web address] Spontaneous unlabored Yes 02/02/25 12:14 [email or web address] respirations Mental status Awake,Calm 02/02/25 12:14 [email or web address] nausea No 02/02/25 12:14 [email or web address] Vomiting No 02/02/25 12:14 [email or web address] Anesthesia Postop Eval I: Fluid Summary Crystalloid volume administer 300 02/02/25 12:14 [email or web address] (ml) Colloids volume administered ( ml) Blood Product volume administered (ml) Total IV fluid infused 300 02/02/25 12:14 [email or web address] Anesthesia Postop Eval I: Summary Notes Anesthesia Complication No 02/02/25 12:14 [email or web address] Anesthesia Complication Comment: Post-operative progress note Anesthesia: Postop Eval II Evaluation Mental status: Awake Pain Level: 0 nausea: No Vomiting: No Complications Anesthesia Complication: No
--- NOTE | 2025-02-02 14:03 | OP.PCM_ITS ---
Operative Report (Standard) Operative Information Date of Procedure: 02/02/25 Pre-Operative Diagnosis: End-stage renal disease on dialysis Post-Operative Diagnosis: Same Surgery/Procedure Performed: Right stage I basilic fistula creation warehouse consultant: Yes Contact Finger Assembler: Thuy Maharaj Tasks completed by first sampler: Opening, Closing, Opening & closing, Hemostasis: Tie, Hemostasis: Electrocautery and Retracting Type of Anesthesia: Block,Regional and MAC RN Documented Start/Stop Times: Operation Date: 02/02/25 10:30 Case Time Into Pre-Op 02/02/25 08:55 Out of Pre-Op 02/02/25 10:16 Anesthesia Start 02/02/25 10:19 Into Room 02/02/25 10:19 Procedure Start 02/02/25 10:52 Procedure End 02/02/25 11:56 Anesthesia End 02/02/25 12:08 Out of Room 02/02/25 12:08 Into Recovery 02/02/25 12:10 Into Phase II Recovery 02/02/25 12:31 Out of Recovery 02/02/25 12:31 Out of Phase II 02/02/25 13:23 Procedure Start Time: 10:50 Procedure Stop Time: 11:55 Select all DRAINS/GRAFTS/IMPLANTS that apply: None Estimated Blood Loss: 4 Specimen collected: No Description of surgery: HPI: Patient is a 70-year-old female with end-stage renal disease currently on dialysis via a tunneled IJ catheter. She had vein mapping which revealed satisfactory right upper arm basilic vein so she presents now for stage I fistula creation. Description of procedure: Upon obtaining informed consent and verification correct patient procedure site the patient was taken to the op room where she was administered a block and sedation by anesthesia. She was then positioned prepped and draped in usual sterile fashion and timeout performed. Ultrasound used to evaluate the basilic vein in the upper arm and is found to be contiguous with adequate caliber throughout and in close proximity to the brachial artery just inferior to the antecubital crease. Transverse incision was made at this location and Bovie used to dissect down until the vein was visualized. This point sharp dissection was dissected free proximal and distal with sidebranches ligated with silk ties and divided. Further dissection was then performed with a Bovie down to the fascia which was incised in creation configuration exposing the brachial artery. Sharp dissection was used to dissect free the vessel proximal and distal with care taken to identify and protect adjacent nerve and vein structures. A right angle to place a vessel loop proximal and distal and the patient heparinized allowed to circulate for 3 minutes. The vein was then ligated distally in the field, divided, and marked to maintain orientation. It was then dilated up to 3.5 mm and flushed with heparinized saline. The brachial artery was then occluded with Vesseloops and longitudinal arteriotomy created with 11 blade extended Berry scissors. Anastomosis was then performed with 6-0 Prolene in a running fashion and prior to completing suture line vessels are backbled into the fistula. After completing the suture line clamps removed and satisfactory stasis was observed. The vessel was interrogated with Doppler and found to be patent with appropriate low resistant fistula signal though there was no thrill palpated initially. The ulnar and radial artery were assessed at the wrist with a biphasic ulnar artery with minimal augmentation with fistula compression and a weak monophasic radial signal with augmentation with fistula compression. The hand remained pink with normal capillary refill. Heparin was then reversed with protamine and incision closed with 3-0 Vicryl, 4-0 Monocryl and Dermabond for the skin. The patient was then awake from her sedation taken the recovery room with anticipated discharge to home. Surgical Findings: See above Complications Complications: No
== END 2025-02-02 13:23 | disposition home or self-care (01) ==
LOC: SDC 08:52 → AC 08:52
PROVIDERS: PCP Family Medicine; Referring Provider Surgery Trauma Surgery; Visit Provider Surgery Trauma Surgery
PROC: (CPT 36821; principal; 2025-02-02 10:15)
DX: Z45.2 Encounter for adjustment and management of vascular access device (principal); N18.6 End stage renal disease; E78.5 Hyperlipidemia, unspecified; I25.2 Old myocardial infarction; Z99.2 Dependence on renal dialysis; Z95.5 Presence of coronary angioplasty implant and graft; Z79.01 Long term (current) use of anticoagulants; Z79.02 Long term (current) use of antithrombotics/antiplatelets; Z79.899 Other long term (current) drug therapy
CPT/HCPCS: 36821; 01844; 64415; 80048; 85027; A4648; J2405